=== PATIENT | male | born 1940 | race Caucasian/White ===

== ENCOUNTER 2020-01-04 11:41 | Outpatient (CLI) | payer OTHER, MEDICAID, SELFPAY ==
[2020-01-04 13:28] LABS: Basophils Percent Auto 0.4 % (0.2-1.2); Eosinophils Absolute Auto 0.1 K/mm3 (0-0.3); Eosinophils Percent Auto 0.8 % (0-4.4); Hematocrit 38.1 % (42.0-52.0); Hemoglobin 12.1 g/dL (14.0-18.0); Immature Granulocyte Absolute 0.03 K/mm3 (0.00-0.031); Immature Granulocyte Percent A 0.3 % (0-0.5); Immature Platelet Fraction Pct 4.6 % (0.9-11.2); Lymphocytes Absolute Auto 5.18 K/mm3 (0.9-3.2); Lymphocytes Percent Auto 54.6 % (18.3-44.2); Mean Corpuscular HGB Conc 31.8 g/dl (32-36); Mean Corpuscular Volume 88.2 fl (80-100); Mean Platelet Volume 10.9 fl (7.4-10.4); Monocytes Absolute Auto 0.4 K/mm3 (0.1-0.6); Monocytes Percent Auto 4.5 % (2.6-8.5); Neutrophils Absolute Auto 3.7 K/mm3 (1.3-6.7); Neutrophils Percent Auto 39.4 % (45.5-73.1); Platelet Count Result 105 k/mm3 (150-375); Red Blood Count 4.32 M/mm3 (4.6-6.20); White Blood Count 9.5 K/mm3 (4.5-10.0)
[2020-01-04 13:29] LABS: Add Urine Microscopic? YES; Appearance Urine Clear (Clear); Bilirubin Urine Negative (Negative); Blood Urine Negative (Negative); Color Urine Yellow (Yellow); Glucose Urine UA Negative (Negative); Ketones Urine Trace mg/dL (Negative); Leukocyte Esterase Ur Negative LEU/UL (Negative); Mucus Urine Rare /lpf; Nitrate Urine Negative (Negative); Protein Urine 2+ mg/dL (Negative); RBC Urine 0-2 /hpf (0-2); Specific Grav Ur 1.024 (1.001-1.035); Urobilinogen Urine Negative mg/dL (<2.0); WBC Urine 0-3 /hpf
[2020-01-04 13:33] LABS: Creatinine Urine 155.3 mg/dL; Total Protein Urine Random 29 mg/dL
[2020-01-04 13:38] LABS: Alanine Aminotransferase 8 U/L (4-50); Alkaline Phosphatase 47 U/L (38-126); Aspartate Amino Transferase 20 U/L (17-59); Bilirubin,Total 0.4 mg/dL (0.2-1.3); Blood Urea Nitrogen 22 mg/dL (9-20); Calcium 9.3 mg/dL (8.4-10.2); Carbon Dioxide 28 mmol/L (22-30); Chloride 103 mmol/L (98-107); Estimated Glomerular Filt Rate 53; Glucose 100 mg/dL (75-110); Phosphorus 3.5 mg/dL (2.5-4.5); Potassium 4.5 mmol/L (3.4-5.0); Sodium 138 mmol/L (137-145)
[2020-01-04 13:49] LABS: Parathyroid Intact 41.1 pg/mL (7.5-53.5)
[2020-01-04 14:03] LABS: Platelet Estimate Decreased (Adequate)
[2020-01-04 14:04] LABS: Atypical Lymphocytes Present
== END 2020-01-04 11:42 | disposition home or self-care (01) ==
PROVIDERS: PCP Internal Medicine
DX: J44.9 Chronic obstructive pulmonary disease, unspecified (principal); E55.9 Vitamin D deficiency, unspecified; N18.3 Chronic kidney disease, stage 3 (moderate); K21.9 Gastro-esophageal reflux disease without esophagitis; R73.01 Impaired fasting glucose; C91.90 Lymphoid leukemia, unspecified not having achieved remission; I10 Essential (primary) hypertension; E03.9 Hypothyroidism, unspecified; M19.90 Unspecified osteoarthritis, unspecified site
CPT/HCPCS: 36415; 80053; 81001; 82306; 82570; 83970; 84100; 84156; 85025; 85055

== ENCOUNTER 2020-04-26 09:03 | Outpatient (CLI) | payer OTHER, SELFPAY ==
[2020-04-26 09:40] LABS: Basophils Absolute Auto 0.1 K/mm3 (0.0-0.1); Basophils Percent Auto 0.5 % (0.2-1.2); Eosinophils Absolute Auto 0.1 K/mm3 (0-0.3); Hematocrit 39.9 % (42.0-52.0); Hemoglobin 12.8 g/dL (14.0-18.0); Immature Granulocyte Absolute 0.06 K/mm3 (0.00-0.031); Immature Granulocyte Percent A 0.5 % (0-0.5); Immature Platelet Fraction Pct 3.4 % (0.9-11.2); Lymphocytes Absolute Auto 5.79 K/mm3 (0.9-3.2); Lymphocytes Percent Auto 50.3 % (18.3-44.2); Mean Corpuscular HGB Conc 32.1 g/dl (32-36); Mean Corpuscular Hemoglobin 28.2 pg (26-34); Mean Corpuscular Volume 87.9 fl (80-100); Mean Platelet Volume 11.3 fl (7.4-10.4); Monocytes Absolute Auto 1.6 K/mm3 (0.1-0.6); Monocytes Percent Auto 14.2 % (2.6-8.5); Neutrophils Absolute Auto 3.9 K/mm3 (1.3-6.7); Neutrophils Percent Auto 33.5 % (45.5-73.1); Platelet Count Result 107 k/mm3 (150-375); Red Blood Count 4.54 M/mm3 (4.6-6.20); White Blood Count 11.5 K/mm3 (4.5-10.0)
[2020-04-26 09:45] LABS: Add Urine Microscopic? YES; Appearance Urine Clear (Clear); Bilirubin Urine Negative (Negative); Blood Urine Negative (Negative); Color Urine Yellow (Yellow); Creatinine Urine 109.4 mg/dL; Glucose Urine UA Negative (Negative); Ketones Urine Negative (Negative); Leukocyte Esterase Ur Negative LEU/UL (Negative); Mucus Urine Rare /lpf; Nitrate Urine Negative (Negative); Protein Urine 1+ mg/dL (Negative); RBC Urine 0-2 /hpf (0-2); Specific Grav Ur 1.018 (1.001-1.035); Total Protein Urine Random 27 mg/dL; Urobilinogen Urine Negative mg/dL (<2.0)
[2020-04-26 09:51] LABS: Alanine Aminotransferase 8 U/L (4-50); Albumin Level 4.2 g/dL (3.5-5.1); Alkaline Phosphatase 51 U/L (38-126); Aspartate Amino Transferase 20 U/L (17-59); Bilirubin,Total 0.6 mg/dL (0.2-1.3); Blood Urea Nitrogen 31 mg/dL (9-20); Calcium 8.9 mg/dL (8.4-10.2); Carbon Dioxide 27 mmol/L (22-30); Chloride 102 mmol/L (98-107); Estimated Glomerular Filt Rate 49; Glucose 106 mg/dL (75-110); Phosphorus 3.9 mg/dL (2.5-4.5); Potassium 4.2 mmol/L (3.4-5.0); Sodium 135 mmol/L (137-145)
[2020-04-26 10:08] LABS: Atypical Lymphocytes Present; Platelet Estimate Decreased (Adequate); Smudge Cells MODERATE
[2020-04-26 10:44] LABS: Vitamin D 25 Hydroxy 59.2 ng/mL
== END 2020-04-26 09:04 | disposition home or self-care (01) ==
LOC: ANHLAB 09:11
PROVIDERS: PCP Internal Medicine; Visit Provider Internal Medicine Nephrology
DX: D63.1 Anemia in chronic kidney disease (principal); N39.0 Urinary tract infection, site not specified; N25.0 Renal osteodystrophy; E55.9 Vitamin D deficiency, unspecified
CPT/HCPCS: 36415; 80053; 81001; 82306; 82570; 83970; 84100; 84156; 85025; 85055

== ENCOUNTER 2020-05-24 12:41 | Outpatient (CLI) | payer OTHER, SELFPAY ==
--- NOTE | ~2020-05-24 | CT_ITS ---
EXAMINATION: CT chest abdomen pelvis wo con DATE: 05/24/2020 16:02 CDT INDICATION: Chronic lymphocytic leukemia. TECHNIQUE: Computed tomography (CT) of the chest, abdomen, and pelvis was performed without intraveno us contrast. The dose-length product was 1093.44 mGy-cm. Automated exposure control and iterative rec onstruction technique were employed. COMPARISON: CT dated 03/03/2019 FINDINGS: CHEST CT: Persistent ascending thoracic aortic aneurysm, not well evaluated due to motion artifact. There is at herosclerosis of the aorta and coronary arteries. Heart size normal. No significant pleural or perica rdial effusion. Stable irregular shaped nodular density right middle lobe containing peripheral calci fication, likely granulomatous disease. No endobronchial lesions. Calcified granuloma right middle lo be inferiorly. No focal airspace consolidation. No pneumothorax. ABDOMEN/PELVIS CT: Status post cholecystectomy. The liver, spleen, pancreas, adrenal glands are unremarkable. There is a low-density lesion in the left kidney, most likely benign cysts. There is a nonobstructing left tyrell l stone. The right kidney is surgically absent. There is a retroaortic left renal vein. Nonobstructiv e bowel gas pattern. No abnormal pelvic masses or fluid collections. Bladder is decompressed. Prostat e gland is prominent. No osteolytic or osteoblastic lesions are identified. Moderate lumbar spondylos is. IMPRESSION: 1. No lymphadenopathy. No significant interval change. 2: Nonobstructing left nephrolithiasis. 3: Status post right nephrectomy and cholecystectomy. 4: Stable irregular nodular density right middle lobe with peripheral calcification, likely related t o chronic granulomatous disease. Reviewed, dictated and finalized at location A. IMPRESSION: 1. No lymphadenopathy. No significant interval change. 2: Nonobstructing left nephrolithiasis. 3: Status post right nephrectomy and cholecystectomy. 4: Stable irregular nodular density right middle lobe with peripheral calcifica tion, likely related to chronic granulomatous disease.
== END 2020-05-24 12:42 | disposition home or self-care (01) ==
LOC: ANHIMG 12:44
PROVIDERS: PCP Internal Medicine; Visit Provider Internal Medicine Hematology & Oncology
DX: C91.10 Chronic lymphocytic leukemia of B-cell type not having achieved remission (principal); N20.0 Calculus of kidney; Z90.49 Acquired absence of other specified parts of digestive tract
CPT/HCPCS: 71250; 74176

== ENCOUNTER 2020-07-28 11:50 | Outpatient (CLI) | payer OTHER, SELFPAY ==
[2020-07-28 12:41] LABS: Basophils Absolute Auto 0.1 K/mm3 (0.0-0.1); Basophils Percent Auto 0.5 % (0.2-1.2); Eosinophils Absolute Auto 0.2 K/mm3 (0-0.3); Eosinophils Percent Auto 1.6 % (0-4.4); Hematocrit 33.7 % (42.0-52.0); Hemoglobin 11.2 g/dL (14.0-18.0); Immature Granulocyte Absolute 0.05 K/mm3 (0.00-0.031); Immature Granulocyte Percent A 0.5 % (0-0.5); Lymphocytes Absolute Auto 5.93 K/mm3 (0.9-3.2); Lymphocytes Percent Auto 55.4 % (18.3-44.2); Mean Corpuscular HGB Conc 33.2 g/dl (32-36); Mean Corpuscular Hemoglobin 27.9 pg (26-34); Mean Platelet Volume 11.1 fl (7.4-10.4); Monocytes Absolute Auto 0.6 K/mm3 (0.1-0.6); Monocytes Percent Auto 5.7 % (2.6-8.5); Neutrophils Absolute Auto 3.9 K/mm3 (1.3-6.7); Neutrophils Percent Auto 36.3 % (45.5-73.1); Platelet Count Result 142 k/mm3 (150-375); Red Blood Count 4.01 M/mm3 (4.6-6.20); Red Cell Distribution Width 15.5 % (11.5-14.5); White Blood Count 10.7 K/mm3 (4.5-10.0)
[2020-07-28 12:46] LABS: Creatinine Urine 188.9 mg/dL; Total Protein Urine Random 36 mg/dL
[2020-07-28 12:52] LABS: Add Urine Microscopic? YES; Appearance Urine Clear (Clear); Bilirubin Urine Negative (Negative); Blood Urine Negative (Negative); Color Urine Yellow (Yellow); Glucose Urine UA Negative (Negative); Ketones Urine Trace mg/dL (Negative); Leukocyte Esterase Ur Negative LEU/UL (NEGATIVE); Mucus Urine Rare /lpf; Nitrate Urine Negative (Negative); Protein Urine 2+ mg/dL (Negative); RBC Urine 0-2 /hpf (0-2); Specific Grav Ur 1.021 (1.001-1.035); Squamous Epithelial Cell Urine Rare /hpf (Few); Urobilinogen Urine Negative mg/dL (<2.0); WBC Urine 0-3 /hpf (0-3)
[2020-07-28 12:54] LABS: Alkaline Phosphatase 63 U/L (38-126); Anion Gap 8 mmol/L (8-16); Aspartate Amino Transferase 20 U/L (17-59); Bilirubin,Total 0.6 mg/dL (0.2-1.3); Blood Urea Nitrogen 30 mg/dL (9-20); Calcium 8.8 mg/dL (8.4-10.2); Carbon Dioxide 26 mmol/L (22-30); Chloride 103 mmol/L (98-107); Estimated Glomerular Filt Rate 45; Glucose 122 mg/dL (75-110); Phosphorus 3.9 mg/dL (2.5-4.5); Potassium 4.4 mmol/L (3.4-5.0); Sodium 137 mmol/L (137-145)
[2020-07-28 13:02] LABS: Alanine Aminotransferase < 6 U/L (4-50)
[2020-07-28 13:06] LABS: Parathyroid Intact 57.9 pg/mL (7.5-53.5)
[2020-07-28 13:27] LABS: Vitamin D 25 Hydroxy 56.3 ng/mL
== END 2020-07-28 11:51 | disposition home or self-care (01) ==
PROVIDERS: PCP Internal Medicine; Visit Provider Internal Medicine Nephrology
DX: I12.9 Hypertensive chronic kidney disease with stage 1 through stage 4 chronic kidney disease, or unspecified chronic kidney disease (principal); N18.30 Chronic kidney disease, stage 3 unspecified; D63.1 Anemia in chronic kidney disease; N39.0 Urinary tract infection, site not specified; N25.0 Renal osteodystrophy; E55.9 Vitamin D deficiency, unspecified; C91.90 Lymphoid leukemia, unspecified not having achieved remission; R73.01 Impaired fasting glucose; J44.9 Chronic obstructive pulmonary disease, unspecified
CPT/HCPCS: 36415; 80053; 81001; 82306; 82570; 83970; 84100; 84156; 85025; 87086

== ENCOUNTER 2020-11-02 10:15 | Outpatient (RCR) | payer MEDICARE, OTHER, SELFPAY ==
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
== END 2020-12-25 10:40 | disposition home or self-care (01) ==
LOC: ANHPT 10:15
PROVIDERS: PCP Internal Medicine; Referring Provider Orthopaedic Surgery; Visit Provider Orthopaedic Surgery
DX: M19.90 Unspecified osteoarthritis, unspecified site (principal)
CPT/HCPCS: 97110; 97116; 97163; 97530

== ENCOUNTER 2020-12-15 09:17 | Outpatient (CLI) | payer MEDICARE, SELFPAY ==
[2020-12-15 09:49] LABS: Basophils Absolute Auto 0.1 K/mm3 (0.0-0.1); Basophils Percent Auto 0.5 % (0.2-1.2); Eosinophils Absolute Auto 0.2 K/mm3 (0-0.3); Hematocrit 39.1 % (42.0-52.0); Hemoglobin 12.5 g/dL (14.0-18.0); Immature Granulocyte Absolute 0.04 K/mm3 (0.00-0.031); Immature Granulocyte Percent A 0.4 % (0-0.5); Lymphocytes Absolute Auto 4.82 K/mm3 (0.9-3.2); Lymphocytes Percent Auto 49.9 % (18.3-44.2); Mean Corpuscular Hemoglobin 27.8 pg (26-34); Mean Corpuscular Volume 86.9 fl (80-100); Mean Platelet Volume 10.4 fl (7.4-10.4); Monocytes Absolute Auto 0.8 K/mm3 (0.1-0.6); Monocytes Percent Auto 8.4 % (2.6-8.5); Neutrophils Absolute Auto 3.8 K/mm3 (1.3-6.7); Neutrophils Percent Auto 38.8 % (45.5-73.1); Platelet Count Result 121 k/mm3 (150-375); Red Cell Distribution Width 15.8 % (11.5-14.5); White Blood Count 9.7 K/mm3 (4.5-10.0)
[2020-12-15 09:55] LABS: Atypical Lymphocytes Present; Platelet Estimate Adequate (Adequate)
[2020-12-15 10:07] LABS: Albumin Level 4.2 g/dL (3.5-5.1); Alkaline Phosphatase 47 U/L (38-126); Anion Gap 5 mmol/L (8-16); Aspartate Amino Transferase 20 U/L (17-59); Bilirubin,Total 0.6 mg/dL (0.2-1.3); Blood Urea Nitrogen 33 mg/dL (9-20); Calcium 9.5 mg/dL (8.4-10.2); Carbon Dioxide 30 mmol/L (22-30); Chloride 102 mmol/L (98-107); Estimated Glomerular Filt Rate 49; Glucose 103 mg/dL (75-110); Phosphorus 4.2 mg/dL (2.5-4.5); Potassium 4.1 mmol/L (3.4-5.0); Sodium 137 mmol/L (137-145)
[2020-12-15 10:08] LABS: Alanine Aminotransferase < 4 U/L (4-50)
[2020-12-15 10:15] LABS: Parathyroid Intact 30.2 pg/mL (7.5-53.5)
[2020-12-15 10:18] LABS: Creatinine Urine 110.7 mg/dL; Total Protein Urine Random 27 mg/dL; Ur Ttl Prot Creatinine Ratio 0.24 mg/mg (0-0.20)
[2020-12-15 10:24] LABS: Add Urine Microscopic? YES; Appearance Urine Clear (Clear); Bilirubin Urine Negative (Negative); Blood Urine Negative (Negative); Color Urine Yellow (Yellow); Glucose Urine UA Negative (Negative); Ketones Urine Negative (Negative); Leukocyte Esterase Ur Negative LEU/UL (NEGATIVE); Mucus Urine Rare /lpf; Nitrate Urine Negative (Negative); Protein Urine 1+ mg/dL (Negative); RBC Urine 0-2 /hpf (0-2); Specific Grav Ur 1.017 (1.001-1.035); Transitional Epi Cells Urine Rare /hpf (None Seen); Urobilinogen Urine Negative mg/dL (<2.0); WBC Urine 0-3 /hpf (0-3)
[2020-12-15 10:38] LABS: Prostate Specific Antigen 1.2 ng/mL (< OR = 4.0)
[2020-12-15 12:56] LABS: Vitamin D 25 Hydroxy 42.1 ng/mL
== END 2020-12-15 09:18 | disposition home or self-care (01) ==
PROVIDERS: PCP Internal Medicine; Visit Provider Internal Medicine Nephrology
DX: R97.20 Elevated prostate specific antigen [PSA] (principal); D63.1 Anemia in chronic kidney disease; N39.0 Urinary tract infection, site not specified; E55.9 Vitamin D deficiency, unspecified; N25.0 Renal osteodystrophy
CPT/HCPCS: 36415; 80053; 81001; 82306; 82570; 83970; 84100; 84153; 84156; 85025; 85055

== ENCOUNTER 2021-01-30 10:18 | Outpatient (CLI) | payer MEDICARE, SELFPAY | END 2021-01-30 10:19 | disposition home or self-care (01) | PROVIDERS: PCP Internal Medicine; Visit Provider Internal Medicine | DX: E03.9 Hypothyroidism, unspecified (principal) | CPT/HCPCS: 36415; 84443 ==

== ENCOUNTER 2021-04-19 09:15 | Observation (INO) | payer MEDICARE, SELFPAY ==
[2021-04-19] VITALS (48 sets, daily range): BP systolic 126–159; BP diastolic 73–99; PULSE 57–74; RESP 13–26; TEMP 36.1–36.6; O2SAT 90–100; BMI 24.3
--- NOTE | ~2021-04-19 | XR_ITS ---
XR chest 2V 04/19/2021 09:41 Indication: Left-sided chest pain Procedure: PA and lateral views of the chest Comparison: Comparison to multiple prior studies sequentially, with oldest reviewed study dated 02/18. Findings: Heart size normal. There is atherosclerosis and ectasia of the aorta. There is bibasilar at electasis. No focal pneumonia, edema, pleural effusion or pneumothorax. There are cholecystectomy cli ps. Impression: 1: Bibasilar atelectasis. Reviewed, dictated and finalized at location B. Impression: 1: Bibasilar atelectasis.
--- NOTE | 2021-04-19 09:28 | ECG_ITS ---
Measurements Intervals [place] Rate: 70 P: 68 SC: 279 QRS: -56 QRSD: 142 T: 6 QT: 416 QTc: 450 Interpretive Statements SINUS RHYTHM WITH FIRST DEGREE AV BLOCK RIGHT BUNDLE BRANCH BLOCK LEFT ANTERIOR FASCICULAR BLOCK ABNORMAL ECG Electronically Signed On 04-19-2021 10:25:13 CDT by Arnulfo Eason D.O.
[2021-04-19 09:40] LABS: Basophils Absolute Auto 0.1 K/mm3 (0.0-0.1); Basophils Percent Auto 0.6 % (0.2-1.2); Eosinophils Absolute Auto 0.1 K/mm3 (0-0.3); Eosinophils Percent Auto 1.2 % (0-4.4); Hematocrit 38.9 % (42.0-52.0); Hemoglobin 12.3 g/dL (14.0-18.0); Immature Granulocyte Absolute 0.07 K/mm3 (0.00-0.031); Immature Granulocyte Percent A 0.6 % (0-0.5); Lymphocytes Absolute Auto 4.96 K/mm3 (0.9-3.2); Mean Corpuscular HGB Conc 31.6 g/dl (32-36); Mean Corpuscular Hemoglobin 27.2 pg (26-34); Mean Corpuscular Volume 86.1 fl (80-100); Monocytes Absolute Auto 1.5 K/mm3 (0.1-0.6); Neutrophils Absolute Auto 4.6 K/mm3 (1.3-6.7); Neutrophils Percent Auto 40.6 % (45.5-73.1); Platelet Count Result 109 k/mm3 (150-375); Red Blood Count 4.52 M/mm3 (4.6-6.20); Red Cell Distribution Width 15.4 % (11.5-14.5); White Blood Count 11.3 K/mm3 (4.5-10.0)
[2021-04-19 09:49] LABS: Partial Thromboplastin Time 30.6 SECONDS (22.3-36.8)
[2021-04-19 09:53] LABS: Anion Gap 10 mmol/L (8-16); Blood Urea Nitrogen 23 mg/dL (9-20); Carbon Dioxide 25 mmol/L (22-30); Chloride 106 mmol/L (98-107); Estimated Glomerular Filt Rate 53; Glucose 96 mg/dL (75-110); Potassium 3.9 mmol/L (3.4-5.0); Sodium 141 mmol/L (137-145)
[2021-04-19 10:04] LABS: Troponin I 0.026 ng/mL (0.000-0.034)
[2021-04-19] MEDS: ASPIRIN 81 MG CHEWABLE TABLET 324 MG PO (10:05)
--- NOTE | 2021-04-19 10:36 | ED.CHESTPAIN ---
HPI - Chest Pain General Chief Complaint: Chest Pain Stated Complaint: chest pain Time Seen by Provider: 04/19/21 10:27 Source: patient and RN notes reviewed Mode of arrival: ambulatory Limitations: no limitations History of Present Illness HPI narrative: Patient is 81 years old presented to the ED from home with his caregiver complaining of left chest pain started this morning. Pressure type, no radiation, no aggravating or relieving factors. History of CLL, chronic pain, parkinsonism, CKD, COPD. Patient been vaccinated for COVID-19, full code, denying any fever, chills, nausea, vomiting, shortness of breath. Related Data Home Medications Medication Instructions Recorded Confirmed carbidopa 25 mg-levodopa 250 mg 1 tablet PO TID 11/18/19 02/07/21 disintegrating tablet finasteride 5 mg tablet 5 mg PO DAILY 11/18/19 02/07/21 lisinopril 2.5 mg tablet 2.5 mg PO DAILY 11/18/19 02/07/21 umeclidinium 62.5 mcg-vilanterol 1 inhalation INHALATION DAILY 11/18/19 02/07/21 25 mcg/actuation powdr for inhalation Allergies Allergy/AdvReac Type Severity Reaction Status Date / Time erythromycin base Allergy Intermediate SHAKING, Verified 02/07/21 13:28 HEADACHE neomycin Allergy Unknown rash Verified 02/07/21 13:28 Sulfa (Sulfonamide Allergy Unknown Rash Verified 02/07/21 13:28 Antibiotics) castor oil AdvReac Intermediate Nausea and Verified 02/07/21 13:28 Vomiting Review of Systems Review of Systems: Narrative: CONSTITUTIONAL: Denies fever, chills, or sweats. EYES: Denies visual changes, redness, or discharge. ENT: Denies rhinorrhea, congestion, sore throat, or otalgia. CARDIOVASCULAR: Denies chest pain, palpitations, or edema. RESPIRATORY: Denies cough or dyspnea. GASTROINTESTINAL: Denies abdominal pain, nausea, vomiting, or diarrhea. GENITOURINARY: Denies dysuria or hematuria. SKIN: Denies rash or itching. MUSCULOSKELETAL: Denies back pain, joint pain, or myalgia. NEUROLOGIC: Denies headache, numbness, or weakness. PSYCHIATRIC: Denies anxiety or depression. [facility] Past Medical History Medical History CAD (coronary artery disease) Chronic lymphocytic leukemia Cramp of both lower extremities Degenerative arthritis of knee, bilateral Hyperthyroidism Kidney disease Surgical History Surgical History History of back surgery Hx of rotator cuff surgery Family History Family History Father Family history of liver disease Family history of lung cancer Patient's father is Family history of primary malignant neoplasm of liver Mother Family history of heart disease in male family member before age 55 Patient's mother is Family history of coronary artery disease Acute myocardial infarction Sibling Family history of lung cancer Family history of malignant neoplasm of bone Patient's sister is Patient's brother is Malignant neoplasm of prostate Grandparent Family history of arthritis Other Family history of malignant neoplasm of kidney Social History Social History Alcohol intake: never Gender identity (if verbalized by the patient): Male Exam Narrative: Exam Narrative: General appearance: Well-developed, well-nourished Skin: Normal color Head: Normocephalic, nontraumatic Eyes: Clear conjunctiva ENT: Oropharynx normal, ears normal, nose normal Neck: Supple, nontender Chest and respiratory: Airway patent, no respiratory distress, no accessory muscle use Heart: Regular rate/rhythm Abdomen: Soft, nontender, no organomegaly, quiet bowel sounds Vascular: Normal peripheral pulses, normal capillary refill. Musculoskeletal: Normal range of motion, nontender back left lower leg is slightly bigger than the right 1 which is chronic Neurologic: Alert and orie
--- NOTE | 2021-04-19 13:02 | PC.NURSE ---
PT ASKING FOR LUNCH, EDP INFORMED AND VERBAL ORDER GIVEN FOR CARDIAC DIET.
--- NOTE | 2021-04-19 13:03 | PC.NURSE ---
CECILIA CONTACTED AT THIS TIME FOR ABEBA
[2021-04-19 13:17] LABS: Troponin I 0.024 ng/mL (0.000-0.034)
--- NOTE | 2021-04-19 14:20 | PC.NURSE ---
PT PROVIDED WITH LUNCH TRAY
[2021-04-19] MEDS: METOPROLOL TARTRATE 25 MG TABLET PO (16:02)
[2021-04-19 16:23] LABS: Troponin I 0.026 ng/mL (0.000-0.034)
--- NOTE | 2021-04-19 16:30 | PM.IMHP ---
H&P: HPI History of Present Illness Date/Time: 04/19/21 16:30 Chief Complaint: Chest pain. Narrative: This is a pleasant 81-year-old male with Parkinson's disease, hypertension, hypothyroidism, sleep apnea, chronic kidney disease, CLL, and several other comorbidities who presented to the emergency department earlier today via private vehicle from home accompanied by his pump oiler for evaluation of chest pain. Sometime this morning after getting ready for the day, while doing nothing in particular, he developed midsternal chest pressure which radiated somewhat to left of midline. He also felt a bit short of breath but had no other symptoms; specifically no sweats, nausea, or vomiting. He gives no aggravating or alleviating factors and reports having no chest pain at this time. He has never had similar symptoms in the past. No exertional chest pain, pleuritic pain, palpitations, or current shortness of breath. Review of Systems Review of Systems: Narrative: Twelve systems were reviewed with pertinent positives and negatives as per HPI. No recent falls. He ambulates with a walker. Lives in his own home however a pump oiler comes for hours a day. His son also lives about a block or 2 away. No dysphagia or concerns for aspiration. He denies orthopnea and PND. Occasional GERD symptoms but none recently. The chest pressure he had today is not at all similar to what he typically will experience when he has indigestion. No lower extremity edema. No history of venous thromboembolism. Except as documented, all other systems were reviewed and are negative. [facility] Past Medical History Medical History (Updated 04/19/21 @ 20:08 by Marivel Salomon PA-C) Arthritis Benign prostatic hyperplasia Chronic anemia Chronic kidney disease, stage 3 Baseline creatinine ranges between 1.30 and 1.40. Chronic lymphocytic leukemia Chronic obstructive pulmonary disease Degenerative arthritis of knee, bilateral Degenerative disc disease Depression with anxiety Essential hypertension Gastroesophageal reflux disease Hypothyroidism Obstructive sleep apnea Parkinsons disease Renal cell carcinoma of right kidney Status post nephrectomy. Silicosis Surgical History Surgical History (Updated 04/19/21 @ 20:04 by Marivel Salomon PA-C) History of appendectomy History of arthroscopy of right knee History of back surgery History of cataract extraction History of cholecystectomy History of repair of left rotator cuff History of right nephrectomy (2003) Family History Family History Father Family history of liver disease Family history of lung cancer Patient's father is Family history of primary malignant neoplasm of liver Mother Family history of heart disease in male family member before age 55 Patient's mother is Family history of coronary artery disease Acute myocardial infarction Sibling Family history of lung cancer Family history of malignant neoplasm of bone Patient's sister is Patient's brother is Malignant neoplasm of prostate Grandparent Family history of arthritis Other Family history of malignant neoplasm of kidney Social History Social History (Updated 04/19/21 @ 20:05 by Marivel Salomon PA-C) Social History: The patient is retired and lives in his own home in [place]. A pump oiler comes in 4 hours per day. His son lives close by as well. Retired from [employer]. No alcohol, tobacco, or illicit substance abuse., Mark Bird, as his surrogate decision maker. Code status: Full code. Meds Home Medications and Allergies Home Medications Medication Instructions Recorded Confirmed Type carbidopa 25 mg-levodopa 250 mg 1 tablet PO TID 11/18/19 02/07/21 History disintegrating tablet finasteride 5 mg tablet 5 mg PO DAILY 11/18/19 02/07/21 History lisinopril 2.5 mg tablet 2.5 mg PO DAILY 11/18/19 0
--- NOTE | 2021-04-19 16:31 | PC.NURSE ---
HOSPITALIST AT BEDSIDE.
--- NOTE | 2021-04-19 18:05 | PC.NURSE ---
REPORT TO SHARITA MAYORGA AT THIS TIME, ROOM IS NOT READY, TO CALL BACK IN 20.
--- NOTE | 2021-04-19 18:06 | PC.NURSE ---
REPORT TO SHARITA MAYORGA AT THIS TIME.
--- NOTE | 2021-04-19 18:39 | PC.NURSE ---
This patient, Florencio Bird, was admitted to IMU Room 231-01. Patient/family oriented to hospital policies and general routines including ID bracelet, bed and alarms, visiting hours, pain management, procedures, bathroom and other care routines, personal items, smoking policy, room service/diet, and visiting hours. Information on how to activate the Rapid Response Team has been discussed. Patient/Family are encouraged to report perceived risks to care and to ask questions if they do not understand what they are told or what they should do.
[2021-04-19] MEDS: BUDESONIDE 3 MG CAP.SR.24H PO (21:42)
[2021-04-19] MEDS: LORazepam (*CRX) 0.5 MG TABLET PO (21:42)
[2021-04-19] MEDS: GABAPENTIN 300 MG CAPSULE 600 MG PO (21:42)
[2021-04-19] MEDS: CARBIDOPA/LEVODOPA 25/250 MG TABLET 1 TABLET PO (21:42)
[2021-04-20] VITALS: PULSE 61
[2021-04-20 04:00] VITALS: BP 134/74; PULSE 58; RESP 18; TEMP 37; O2SAT 97
[2021-04-20 05:34] LABS: Alanine Aminotransferase 9 U/L (4-50); Albumin Level 3.5 g/dL (3.5-5.1); Alkaline Phosphatase 46 U/L (38-126); Anion Gap 9 mmol/L (8-16); Aspartate Amino Transferase 19 U/L (17-59); Bilirubin,Total 0.5 mg/dL (0.2-1.3); Blood Urea Nitrogen 23 mg/dL (9-20); Calcium 8.9 mg/dL (8.4-10.2); Carbon Dioxide 24 mmol/L (22-30); Chloride 105 mmol/L (98-107); Cholesterol 118 mg/dL (0-200); Estimated CRCL calculation 42 ml/min; Estimated Glomerular Filt Rate 58; Glucose 87 mg/dL (75-110); HDL Direct 27 mg/dL; Magnesium 1.6 mg/dL (1.6-2.3); Potassium 3.9 mmol/L (3.4-5.0); Sodium 138 mmol/L (137-145); Triglycerides 123 mg/dL (<150)
[2021-04-20 05:45] LABS: LDL Cholesterol Direct 54 mg/dL
[2021-04-20] MEDS: LEVOTHYROXINE SODIUM 100 MCG TABLET PO (06:49)
[2021-04-20 08:00] VITALS: BP 144/74; PULSE 59; PULSE 67; RESP 12; TEMP 36.6; O2SAT 99
[2021-04-20] MEDS: PANTOPRAZOLE 40 MG TABLET PO (08:54)
[2021-04-20] MEDS: GABAPENTIN 300 MG CAPSULE 600 MG PO (08:54)
[2021-04-20] MEDS: FINASTERIDE 5 MG TABLET PO (08:54)
[2021-04-20] MEDS: ENOXAPARIN 40 MG/0.4 ML SYRINGE SUB-Q (08:54)
[2021-04-20] MEDS: DOCUSATE SODIUM 100 MG CAPSULE PO (08:55)
[2021-04-20] MEDS: ASPIRIN 81 MG CHEWABLE TABLET PO (08:55)
[2021-04-20] MEDS: TAMSULOSIN HCL 0.4 MG CAPSULE PO (08:55)
[2021-04-20] MEDS: CARBIDOPA/LEVODOPA 25/250 MG TABLET 1 TABLET PO (08:55)
[2021-04-20] MEDS: BUDESONIDE 3 MG CAP.SR.24H PO (08:55)
[2021-04-20] MEDS: lisinopriL 2.5 MG TABLET PO (08:55)
[2021-04-20 10:00] VITALS: PULSE 73
--- NOTE | 2021-04-20 11:25 | PM.DS ---
DS: Admitting Diagnosis Admitting Diagnosis Admitting Diagnosis: chest pain DS: Discharge Diagnosis Discharge Diagnosis (1) Chest pain: Qualifiers: Chest pain type: unspecified Qualified Code(s): R07.9 - Chest pain, unspecified Code(s): R07.9 - Chest pain, unspecified Status: Acute (2) Essential hypertension: Code(s): I10 - Essential (primary) hypertension Status: Acute (3) Gastroesophageal reflux disease: Qualifiers: Esophagitis presence: esophagitis presence not specified Qualified Code(s): K21.9 - Gastro-esophageal reflux disease without esophagitis Code(s): K21.9 - Gastro-esophageal reflux disease without esophagitis Status: Acute (4) Parkinson disease: Code(s): G20 - Parkinson's disease Status: Acute (5) Hypothyroidism: Code(s): E03.9 - Hypothyroidism, unspecified Status: Acute (6) Chronic kidney disease, stage 3: Code(s): N18.30 - Chronic kidney disease, stage 3 unspecified Status: Acute (7) Chronic anemia: Code(s): D64.9 - Anemia, unspecified Status: Acute (8) Chronic obstructive pulmonary disease: Code(s): J44.9 - Chronic obstructive pulmonary disease, unspecified Status: Acute DS: Summary Hospital Course Reason for hospitalization: Chest pain. Narrative: This is a pleasant 81-year-old male with Parkinson's disease, hypertension, hypothyroidism, sleep apnea, chronic kidney disease, CLL, and several other comorbidities who presented to the emergency department earlier today via private vehicle from home accompanied by his animal caretaker supervisor for evaluation of chest pain. Sometime this morning after getting ready for the day, while doing nothing in particular, he developed midsternal chest pressure which radiated somewhat to left of midline. He also felt a bit short of breath but had no other symptoms; specifically no sweats, nausea, or vomiting. He gives no aggravating or alleviating factors and reports having no chest pain at this time. He has never had similar symptoms in the past. No exertional chest pain, pleuritic pain, palpitations, or current shortness of breath. Hospital Course: patient presented with complaint of chest 3 sets of cardiac enzymes are negative there are no acute changes on EKG ID is ruled out, patient chest pain has resolved is clinically stable will discharge the patient today Status at Discharge Functional status at discharge: uses cane/walker Overall status at discharge: patient is back to baseline Time Spent with Patient Time attestation: Total time spent providing and/or coordinating discharge services: Patient was seen and examined at the time of the discharge Condition at discharge is stable Code status: Full code. Time spent preparing discharge summary, discharge medications, discussing discharge planning with outsole caser and patient is 35 minutes. Time spent: Greater than 30 minutes DS: Data Data Completed and Pending Labs on day of discharge: Labs from last 24 hours 04/20/21 04/20/21 04/19/21 05:03 05:03 15:57 Sodium 138 Potassium 3.9 Chloride 105 Carbon Dioxide 24 Anion Gap 9 BUN 23 H Creatinine 1.20 Estim Creat Clear Calc 42 Estimated GFR 58 L Glucose 87 Calcium 8.9 Magnesium 1.6 Total Bilirubin 0.5 AST 19 ALT 9 Alkaline Phosphatase 46 Troponin I 0.026 Total Protein 6.0 L Albumin 3.5 Triglycerides 123 Cholesterol 118 LDL Cholesterol Direct 54 HDL Direct 27 TSH (Reflex) 2.070 04/19/21 12:47 Sodium Potassium Chloride Carbon Dioxide Anion Gap BUN Creatinine Estim Creat Clear Calc Estimated GFR Glucose Calcium Magnesium Total Bilirubin AST ALT Alkaline Phosphatase Troponin I 0.024 Total Protein Albumin Triglycerides Cholesterol LDL Cholesterol Direct HDL Direct TSH (Reflex) Discharge Plan Discharge Attending physi
== END 2021-04-20 12:35 | disposition home or self-care (01) ==
LOC: ANHED 10:59 → ANHIMU 18:52
PROVIDERS: Physician Assistant; Admitting Provider Emergency Medicine; Emergency Provider Emergency Medicine; PCP Internal Medicine; Visit Provider Family Medicine
DX: R07.9 Chest pain, unspecified (principal); G20 Parkinson's disease; I12.9 Hypertensive chronic kidney disease with stage 1 through stage 4 chronic kidney disease, or unspecified chronic kidney disease; N18.30 Chronic kidney disease, stage 3 unspecified; D64.9 Anemia, unspecified; E03.9 Hypothyroidism, unspecified; G47.33 Obstructive sleep apnea (adult) (pediatric); R06.02 Shortness of breath; K21.9 Gastro-esophageal reflux disease without esophagitis; Z85.6 Personal history of leukemia
CPT/HCPCS: 36415; 71046; 80048; 80053; 80061; 83735; 84443; 84484; 85025; 85610; 85730; 93005; 96372; 99285; A9270; G0378; J1650

== ENCOUNTER 2021-04-23 10:40 | Outpatient (CLI) | payer MEDICARE, SELFPAY ==
[2021-04-23 11:27] LABS: Basophils Absolute Auto 0.1 K/mm3 (0.0-0.1); Basophils Percent Auto 0.7 % (0.2-1.2); Eosinophils Absolute Auto 0.2 K/mm3 (0-0.3); Eosinophils Percent Auto 1.7 % (0-4.4); Hematocrit 37.8 % (42.0-52.0); Hemoglobin 12.1 g/dL (14.0-18.0); Immature Granulocyte Absolute 0.06 K/mm3 (0.00-0.031); Immature Granulocyte Percent A 0.6 % (0-0.5); Immature Platelet Fraction Pct 4.9 % (0.9-11.2); Lymphocytes Percent Auto 52.5 % (18.3-44.2); Mean Corpuscular Hemoglobin 27.2 pg (26-34); Mean Corpuscular Volume 84.9 fl (80-100); Mean Platelet Volume 10.5 fl (7.4-10.4); Monocytes Absolute Auto 0.7 K/mm3 (0.1-0.6); Monocytes Percent Auto 6.7 % (2.6-8.5); Neutrophils Percent Auto 37.8 % (45.5-73.1); Platelet Count Result 110 k/mm3 (150-375); Red Blood Count 4.45 M/mm3 (4.6-6.20); Red Cell Distribution Width 15.6 % (11.5-14.5); White Blood Count 10.5 K/mm3 (4.5-10.0)
[2021-04-23 11:42] LABS: Alanine Aminotransferase 15 U/L (4-50); Albumin Level 4.1 g/dL (3.5-5.1); Alkaline Phosphatase 60 U/L (38-126); Anion Gap 9 mmol/L (8-16); Aspartate Amino Transferase 24 U/L (17-59); Bilirubin,Total 0.4 mg/dL (0.2-1.3); Blood Urea Nitrogen 31 mg/dL (9-20); Calcium 9.1 mg/dL (8.4-10.2); Carbon Dioxide 24 mmol/L (22-30); Chloride 107 mmol/L (98-107); Estimated Glomerular Filt Rate 42; Glucose 106 mg/dL (75-110); Phosphorus 4.3 mg/dL (2.5-4.5); Potassium 4.6 mmol/L (3.4-5.0); Sodium 140 mmol/L (137-145)
[2021-04-23 11:44] LABS: Add Urine Microscopic? YES; Appearance Urine Clear (Clear); Bilirubin Urine Negative (Negative); Blood Urine Negative (Negative); Color Urine Yellow (Yellow); Glucose Urine UA Negative (Negative); Ketones Urine Negative (Negative); Leukocyte Esterase Ur Negative LEU/UL (NEGATIVE); Mucus Urine Rare /lpf; Nitrate Urine Negative (Negative); Protein Urine 2+ mg/dL (Negative); Specific Grav Ur 1.018 (1.001-1.035); Urobilinogen Urine Negative mg/dL (<2.0); WBC Urine 0-3 /hpf (0-3)
[2021-04-23 11:47] LABS: Atypical Lymphocytes Present; Large Platelets Present; Platelet Estimate Adequate (Adequate)
[2021-04-23 11:50] LABS: Creatinine Urine 126.5 mg/dL; Total Protein Urine Random 29 mg/dL; Ur Ttl Prot Creatinine Ratio 0.23 mg/mg (0-0.20)
[2021-04-23 12:05] LABS: Vitamin D 25 Hydroxy 45.6 ng/mL
[2021-04-23 12:26] LABS: Parathyroid Intact 71.4 pg/mL (7.5-53.5)
== END 2021-04-23 10:41 | disposition home or self-care (01) ==
PROVIDERS: PCP Internal Medicine; Visit Provider Internal Medicine Nephrology
DX: N18.31 Chronic kidney disease, stage 3a (principal); N39.0 Urinary tract infection, site not specified; D63.1 Anemia in chronic kidney disease; N25.0 Renal osteodystrophy; E55.9 Vitamin D deficiency, unspecified
CPT/HCPCS: 36415; 80053; 81001; 82306; 82570; 83970; 84100; 84156; 85025; 85055

== ENCOUNTER 2021-07-09 12:28 | Outpatient (RCR) | payer MEDICARE, SELFPAY ==
--- NOTE | 2021-07-09 13:59 | REHOPWC ---
SEATING EVALUATION NOTIFICATION Re: Florencio Bird : 1940 This is to notify provider that Florencio Bird participated in a power mobility device evaluation today. Recommendations were made specific to patient's needs. Seating Assessment documentation has been completed for detailed information on required equipment. The mobility device provider for this case is [ [facility] ]. Please note that no further care plan will be developed on this account. Thank you for referring this patient to [facility]. Please review, sign, date and return this discharge summary MITCH. I have been updated about the patient's current status and I agree with discharge from the above service at this time. Referring Physician Date
== END 2021-09-25 11:57 | disposition home or self-care (01) ==
LOC: ANHPT 12:28
PROVIDERS: PCP Internal Medicine; Visit Provider Internal Medicine
DX: Z46.89 Encounter for fitting and adjustment of other specified devices (principal); R26.9 Unspecified abnormalities of gait and mobility
CPT/HCPCS: 97163

== ENCOUNTER 2021-08-02 10:39 | Outpatient (CLI) | payer MEDICARE, SELFPAY ==
--- NOTE | ~2021-08-02 | CT_ITS ---
EXAMINATION: CT abdomen pelvis w con DATE: 08/02/2021 11:17 INDICATION: Left lower quadrant abdominal pain TECHNIQUE: Computed tomography (CT) of the abdomen and pelvis was performed with 100 cc Omnipaque 350 intravenous contrast. Automated exposure control and iterative reconstruction technique were employe d. Exam dose: 899.76 mGy-cm total exam DLP. COMPARISON: 05/24/2020 CT chest abdomen pelvis FINDINGS: There is evidence of old pulmonary granulomatous disease. There is mild atelectasis in the lower lung zones, primarily the dependent lower lobes. Prominent coronary artery calcifications. Cardiomegaly. There is trace pericardial fluid. Status post cholecystectomy. The liver, spleen, pancreas, and adrenal glands are unremarkable. Status post right nephrectomy. Approximately 1.8 cm mildly septated hypoenhancing lesion of the lateral aspect of the lower pole the left kidney is noted. This is slightly diminished in size compared to approximately 1.9 cm dimension on 03/03/2019. Stable approximately 7 x 5 mm hypoattenuating lesion of the posterior mid left kidney 03/03/2019. No left renal or ureteral calculus or hydroureteronephrosis. There is prostate enlargement. There is a 1.5 cm diverticulum of the anterior aspect of the urinary bladder. There are numerous diverticula of the left colon; no CT evidence of diverticulitis. No bowel obstruct ion, bowel wall thickening, pneumatosis or intraperitoneal free air. There is atherosclerotic calcification of the abdominal aorta and aortic branches but no abdominal ao rtic aneurysm. No intraperitoneal or retroperitoneal or pelvic mass lesion or adenopathy or ascites i s evident. Small fat-containing umbilical hernia. Diffuse osteopenia. 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 There is moderate to moderately severe degenerative disc disease of the lumbar and lumbosacral spine. Bilateral hip osteoarthritis. No suspicious osteolytic or osteoblastic lesions are noted. IMPRESSION: Status post right nephrectomy Relatively stable left renal cystic lesions since 03/03/2019, likely benign or indolent Prostate enlargement Diverticulosis of the colon; no CT evidence of diverticulitis Status post cholecystectomy Reviewed, dictated and finalized at Location [facility]. Reviewed, dictated and finalized at location A. IMPRESSION: Status post right nephrectomy Relatively stable left renal cystic lesions since 03/03/2019, likely benign or in dolent Prostate enlargement Diverticulosis of the colon; no CT evidence of diverticulitis Status post cholecystectomy
[2021-08-02 11:12] LABS: Estimated Glomerular Filt Rate 49
== END 2021-08-02 10:40 | disposition home or self-care (01) ==
LOC: ANHIMG 10:42
PROVIDERS: PCP Internal Medicine; Visit Provider Internal Medicine Hematology & Oncology
DX: R10.12 Left upper quadrant pain (principal); Z90.49 Acquired absence of other specified parts of digestive tract; K57.30 Diverticulosis of large intestine without perforation or abscess without bleeding; N40.0 Benign prostatic hyperplasia without lower urinary tract symptoms
CPT/HCPCS: 74177; Q9967

== ENCOUNTER 2021-08-14 08:54 | Outpatient (CLI) | payer MEDICARE, SELFPAY ==
[2021-08-14 09:35] LABS: Hematocrit 39.9 % (42.0-52.0); Hemoglobin 12.6 g/dL (14.0-18.0); Mean Corpuscular HGB Conc 31.6 g/dl (32-36); Mean Corpuscular Volume 88.7 fl (80-100); Mean Platelet Volume 10.1 fl (7.4-10.4); Platelet Count Result 142 k/mm3 (150-375); Red Cell Distribution Width 16.4 % (11.5-14.5); White Blood Count 12.1 K/mm3 (4.5-10.0)
[2021-08-14 09:48] LABS: Alanine Aminotransferase 10 U/L (4-50); Albumin Level 4.1 g/dL (3.5-5.1); Alkaline Phosphatase 73 U/L (38-126); Anion Gap 9 mmol/L (8-16); Aspartate Amino Transferase 27 U/L (17-59); Bilirubin,Total 0.5 mg/dL (0.2-1.3); Blood Urea Nitrogen 29 mg/dL (9-20); Calcium 9.2 mg/dL (8.4-10.2); Carbon Dioxide 27 mmol/L (22-30); Chloride 103 mmol/L (98-107); Cholesterol 138 mg/dL (0-200); Estimated Glomerular Filt Rate 58; Glucose 102 mg/dL (65-110); HDL Direct 32 mg/dL; Potassium 4.2 mmol/L (3.4-5.0); Sodium 139 mmol/L (137-145); Triglycerides 149 mg/dL (<150)
[2021-08-14 09:59] LABS: LDL Cholesterol Direct 70 mg/dL
[2021-08-14 10:50] LABS: Lymphocytes Absolute Manual 7.13 K/mm3 (1.1-4.5); Monocytes Absolute Manual 0.72 K/mm3 (0.1-0.90); Monocytes Percent Manual 6 % (3-9); Neutrophils Percent Manual 35 % (46-73); Platelet Estimate Adequate (Adequate); Total Cells Counted 100
[2021-08-14 11:12] LABS: Folic Acid 12.2 ng/mL (2.76->20); Vitamin B12 > 1000.0 pg/mL (239-931)
== END 2021-08-14 08:55 | disposition home or self-care (01) ==
PROVIDERS: PCP Internal Medicine; Visit Provider Internal Medicine
DX: C91.10 Chronic lymphocytic leukemia of B-cell type not having achieved remission (principal); R41.89 Other symptoms and signs involving cognitive functions and awareness; E03.9 Hypothyroidism, unspecified; F41.8 Other specified anxiety disorders; I10 Essential (primary) hypertension
CPT/HCPCS: 36415; 80053; 80061; 82607; 82746; 85025

== ENCOUNTER 2021-11-20 12:33 | Outpatient (CLI) | payer MEDICARE, MEDICAID, SELFPAY ==
--- NOTE | ~2021-11-20 | XR_ITS ---
XR chest 2V 11/20/2021 13:04 Indication: Cough Procedure: 2 view chest Comparison: Comparison to multiple prior studies sequentially, with oldest reviewed study dated 03/20. Findings: Heart size normal. There is atherosclerosis and ectasia of the aorta. Bibasilar infiltrates which may represent atelectasis or pneumonia. Nodular density right mid thorax slightly more promine nt than on 04/19/2021. The lungs are hyperinflated which is consistent with, but not diagnostic of chr onic obstructive pulmonary disease. Impression: 1: Bibasilar infiltrates, atelectasis versus pneumonia. 2: Enlarging nodular density right mid thorax. Follow-up CT chest recommended. Reviewed, dictated and finalized at location B. OR MANAGER CREATIVE SERVICES Impression: 1: Bibasilar infiltrates, atelectasis versus pneumonia. 2: Enlarging nodular density right mid thorax. Follow-up CT chest recommended.
== END 2021-11-20 12:34 | disposition home or self-care (01) ==
PROVIDERS: PCP Internal Medicine; Visit Provider Internal Medicine
DX: R05.9 Cough, unspecified (principal); R91.8 Other nonspecific abnormal finding of lung field
CPT/HCPCS: 71046

== ENCOUNTER 2021-11-30 14:03 | Outpatient (CLI) | payer MEDICARE, MEDICAID, SELFPAY ==
--- NOTE | ~2021-11-30 | XR_ITS ---
XR chest 2V DATE: 11/30/2021 14:45 INDICATION: Cough TECHNIQUE: 2 views COMPARISON: 11/20/2021 2 view chest FINDINGS: Normal heart size. There is aortic calcification and tortuosity. No hilar or mediastinal enlargement. There is bilateral pulmonary hyperinflation. No pulmonary infiltrate or consolidation, pulmonary vas cular congestion or pleural effusion or pneumothorax. Again noted is an approximately 1.5 cm mass in the lateral right mid to lower lung. Diffuse osteopenia. Degenerative spurring of the thoracic spine. IMPRESSION: Persistent right lower lobe mass, suspicious for lung cancer. Consider PET/CT scan Bilateral hyperinflation Reviewed, dictated and finalized at location B. CHILL ADMINISTRATOR IMPRESSION: Persistent right lower lobe mass, suspicious for lung cancer. Cons ider PET/CT scan Bilateral hyperinflation
== END 2021-11-30 14:04 | disposition home or self-care (01) ==
PROVIDERS: PCP Internal Medicine; Visit Provider Internal Medicine
DX: R05.9 Cough, unspecified (principal); R91.8 Other nonspecific abnormal finding of lung field
CPT/HCPCS: 71046

== ENCOUNTER 2021-12-10 08:50 | Outpatient (CLI) | payer MEDICARE, MEDICAID, SELFPAY ==
[2021-12-05 09:41] VITALS: BMI 26.2
--- NOTE | 2021-12-05 09:52 | PC.NURSE ---
Report to the Outpatient Waiting Room, entrance under the green pavilion located off [facility], at time ___0900____ on date _12/10/21 . OR Time: _1100 . - You will be asked a series of questions to screen for COVID 19 for your protection. - A mask is required within the hospital. - No visitors are allowed at this time. Preoperative COVID Testing Requirements: No COVID Test needed if: (proof is required; if not received patient will have Rapid Test prior to entry) - Patient has received COVID Vaccine at least 14 days prior to procedure date or - Patient has positive COVID test result within last 90 days of surgery date. COVID Test needed if above criteria is not met If not COVID vaccinated a COVID test must be conducted within 72 hours of surgery and patient is asked to isolate self from time of testing until procedure. You will go to the [facility] for your COVID testing. The [facility] is located at the corner of [address] [facility]. You will only be called if COVID results are positive and your surgeon may reschedule your elective surgery date. -NOTHING TO EAT OR DRINK 6 HOURS PRIOR TO PROCEDURE (0500) - Take the following medications with a SIP of water the morning of surgery: _ALL ROUTINE MORNING MEDS Medications to discontinue per physician Date to take last dose Please no make-up, nail nigerien, hairspray, perfume, deodorant, or body powder the day of surgery. No jewelry (including any body piercings) or valuables the day of surgery, leave them at home. Please take a shower or bath the night before, or the morning of, surgery with an antibacterial soap. Wear comfortable, loose fitting clothing. Children are encouraged to wear pajamas. - Jewelry must be removed prior to entering the operating room. Rings and piercings that are not removed may be cut off. - The hospital will not accept responsibility for valuables. - Please leave all valuables, including medications, at home the day of surgery. If you are going home after surgery, a licensed stake driver must drive you home. - NO public transportation without another adult. - We recommend that an adult stay with you for 24 hours following discharge. - We also recommend that you do not drive, make important decision, drink alcoholic beverages, or take any drugs that were not prescribed by your health care provider for at least 24 hours after your discharge time Follow any additional instructions given to you from your surgeon. Telephone instructions given to _PATIENT AND SON DON and asked if any additional questions and then verbalized understanding. Patient advised to call surgeon office or pre surgery nurse liaison [phone] if any additional questions.
--- NOTE | ~2021-12-10 | CT_ITS ---
EXAMINATION: CT diagnostic chest w con DATE: 12/10/2021 09:45 INDICATION: Solitary pulmonary nodule TECHNIQUE: Transaxial computed tomographic images of the chest were obtained after the administration of 75 cc of Omnipaque 350 intravenous contrast. The dose-length product (DLP) was 277.19 mGy-cm. Ite rative reconstruction was used. COMPARISON: 05/24/2020, 03/03/2019, 11/19/2012 FINDINGS: A calcified nodule of the right middle lobe measuring up to 1.6 cm is not significantly teresa nged. There are dependent airspace opacities in the lungs. Calcified pulmonary nodules and calcified right hilar and mediastinal lymph nodes are consistent with old granulomatous disease. No pathologica lly enlarged thoracic lymph nodes are identified. The heart size is normal. There is mild thoracic sp ondylosis. The gallbladder is surgically absent. IMPRESSION: 1. Stable calcified nodule of the right middle lobe, likely old granulomatous disease. 2. Minimal dependent airspace opacities, consistent with atelectasis versus pneumonia. Reviewed, dictated and finalized at location A. HEN AND COUNTER WORKER IMPRESSION: 1. Stable calcified nodule of the right middle lobe, likely old granulomatous d isease. 2. Minimal dependent airspace opacities, consistent with atelectasis versus pne umonia.
[2021-12-10 09:36] LABS: Estimated CRCL calculation 48 ml/min; Estimated Glomerular Filt Rate > 60
== END 2021-12-10 08:51 | disposition home or self-care (01) ==
LOC: ANHSURGERY 08:58
PROVIDERS: PCP Internal Medicine; Visit Provider Internal Medicine
DX: R91.1 Solitary pulmonary nodule (principal); R91.8 Other nonspecific abnormal finding of lung field
CPT/HCPCS: 71260; Q9967

== ENCOUNTER 2021-12-29 13:53 | Outpatient (CLI) | payer MEDICARE, MEDICAID, SELFPAY ==
--- NOTE | ~2021-12-29 | XR_ITS ---
XR abdomen/kub 1V 12/29/2021 14:34 Indication: Constipation Procedure: KUB Comparison: 01/12/2015 Findings: Bowel gas pattern is nonobstructive. Moderate colonic fecal loading. There are surgical teresa nges in the right upper and mid abdomen. Moderate lumbar spondylosis. Left nephrolithiasis. There are pelvic phleboliths. Moderate osteoarthritis of the hips. Impression: 1: Left nephrolithiasis. Reviewed, dictated and finalized at location A. TECHNICIAN Impression: 1: Left nephrolithiasis.
== END 2021-12-29 13:54 | disposition home or self-care (01) ==
PROVIDERS: PCP Internal Medicine; Visit Provider Nurse Practitioner Family
DX: K59.00 Constipation, unspecified (principal); N20.0 Calculus of kidney
CPT/HCPCS: 74018

== ENCOUNTER 2022-01-31 13:14 | Outpatient (CLI) | payer MEDICARE, MEDICAID, SELFPAY ==
--- NOTE | 2022-01-31 13:39 | ECHO_ITS ---
Patient Info Name: Florencio Bird Age: 81 years : 1940 Gender: Male Ht: 70 in Wt: 186 lbs BSA: 2.05 m2 HR: 68 bpm BP: 133 / 77 mmHg Technical Quality: Fair Exam Date: 01/31/2022 2:05 PM Exam Location: [facility] Pulmonary Patient Status: Outpatient Admit Date: 01/31/2022 Staff Ordering Physician: Sarah Carvalho PA-C Delivery Representative: Tracy Urena RDCS Attending Provider: Sarah Carvalho PA-C Exam Type: CA echo doppler color flow Study Info Indications - SLEEP APNEA Complete two-dimensional, color flow and Doppler transthoracic echocardiogram is performed. Summary 1. Complete two-dimensional, color flow and Doppler transthoracic echocardiogram is performed. 2. Left ventricular chamber dimension is normal. 3. Left ventricular systolic function is normal, estimated at 60-65%. 4. The left ventricular diastolic function is grade I diastolic dysfunction. 5. E/e' 9 is minimally elevated. 6. There is mild aortic valve sclerosis. 7. No pulmonary hypertension, estimated pulmonary arterial systolic pressure is 25 mmHg. Left Ventricle E/e' 9 is minimally elevated. Left ventricular chamber dimension is normal. Left ventricular systolic function is normal, estimated at 60-65%. The left ventricular diastolic function is grade I diastolic dysfunction. Right Ventricle Right ventricular chamber dimension is normal. Right ventricular systolic function is normal. Left Atria Left atrial chamber dimension is normal. Right Atria Right atrial chamber dimension is normal. Aortic Valve The aortic valve is trileaflet. There is mild aortic valve sclerosis. There is no aortic valve stenosis. There is no aortic valve regurgitation. Pulmonic Valve There is no pulmonic regurgitation. Mitral Valve There is no mitral valve stenosis. There is no mitral valve regurgitation. Tricuspid Valve There is no tricuspid valve regurgitation. No pulmonary hypertension, estimated pulmonary arterial systolic pressure is 25 mmHg. Pericardium/Pleural There is no pericardial effusion. Inferior Vena Cava Normal inferior vena cava with >50% collapse upon inspiration consistent with normal right atrial pressure, 5 mmHg. Aorta The aortic root size at the sinus of Valsalva is normal. Left Ventricular Outflow Tract Name Value Normal LVOT 2D LVOT Diameter 2.1 cm LVOT Doppler LVOT Peak Gradient 4 mmHg LVOT Mean Gradient 2 mmHg LVOT VTI 20 cm LVOT VTI/AV VTI Ratio 1.0 LVOT Stroke Volume 71 ml LVOT CO 13.8 l/min LVOT CI 6.7 l/min/m2 Mitral Valve Name Value Normal MV Doppler MV Decel Jackson 216 cm/s2 MV PHT
== END 2022-01-31 13:15 | disposition home or self-care (01) ==
LOC: ANHCARD 13:18
PROVIDERS: PCP Internal Medicine; Visit Provider Physician Assistant
DX: G47.33 Obstructive sleep apnea (adult) (pediatric) (principal)
CPT/HCPCS: 93306

== ENCOUNTER 2022-01-31 14:34 | Outpatient (CLI) | payer MEDICARE, MEDICAID, SELFPAY ==
[2022-01-31 15:17] LABS: Basophils Absolute Auto 0.1 K/mm3 (0.0-0.1); Basophils Percent Auto 0.6 % (0.2-1.2); Eosinophils Absolute Auto 0.1 K/mm3 (0-0.3); Eosinophils Percent Auto 1.7 % (0-4.4); Hematocrit 39.7 % (42.0-52.0); Hemoglobin 12.6 g/dL (14.0-18.0); Immature Granulocyte Absolute 0.04 K/mm3 (0.00-0.031); Immature Granulocyte Percent A 0.5 % (0-0.5); Immature Platelet Fraction Pct 3.3 % (0.9-11.2); Lymphocytes Absolute Auto 3.76 K/mm3 (0.9-3.2); Lymphocytes Percent Auto 44.4 % (18.3-44.2); Mean Corpuscular HGB Conc 31.7 g/dl (32-36); Mean Corpuscular Hemoglobin 27.6 pg (26-34); Mean Corpuscular Volume 87.1 fl (80-100); Mean Platelet Volume 10.2 fl (7.4-10.4); Monocytes Absolute Auto 0.6 K/mm3 (0.1-0.6); Monocytes Percent Auto 7.4 % (2.6-8.5); Neutrophils Absolute Auto 3.8 K/mm3 (1.3-6.7); Neutrophils Percent Auto 45.4 % (45.5-73.1); Platelet Count Result 139 k/mm3 (150-375); Red Blood Count 4.56 M/mm3 (4.6-6.20); Red Cell Distribution Width 15.9 % (11.5-14.5); White Blood Count 8.5 K/mm3 (4.5-10.0)
[2022-01-31 15:22] LABS: Creatinine Urine 115.7 mg/dL
[2022-01-31 15:24] LABS: Add Urine Microscopic? YES; Appearance Urine Clear (Clear); Bilirubin Urine Negative (Negative); Blood Urine Negative (Negative); Color Urine Yellow (Yellow); Glucose Urine UA Negative (Negative); Ketones Urine Trace mg/dL (Negative); Leukocyte Esterase Ur Negative LEU/UL (NEGATIVE); Mucus Urine Rare /lpf; Nitrate Urine Negative (Negative); Protein Urine 3+ mg/dL (Negative); RBC Urine 0-2 /hpf (0-2); Urobilinogen Urine Negative mg/dL (<2.0); WBC Urine 0-3 /hpf (0-3)
[2022-01-31 15:25] LABS: Albumin Level 4.2 g/dL (3.5-5.1); Alkaline Phosphatase 70 U/L (38-126); Anion Gap 7 mmol/L (8-16); Aspartate Amino Transferase 24 U/L (17-59); Bilirubin,Total 0.6 mg/dL (0.2-1.3); Blood Urea Nitrogen 24 mg/dL (9-20); Calcium 8.9 mg/dL (8.4-10.2); Carbon Dioxide 26 mmol/L (22-30); Chloride 103 mmol/L (98-107); Estimated Glomerular Filt Rate 58; Glucose 101 mg/dL (65-110); Phosphorus 4.2 mg/dL (2.5-4.5); Potassium 3.8 mmol/L (3.4-5.0); Sodium 136 mmol/L (137-145)
[2022-01-31 15:35] LABS: Hemoglobin A1C 5.1 % (<5.7); Ovalocytes 1+ (NORMAL); Platelet Estimate Adequate (Adequate)
[2022-01-31 15:36] LABS: Atypical Lymphocytes Present; Parathyroid Intact 58.6 pg/mL (7.5-53.5); Smudge Cells FEW
[2022-01-31 15:37] LABS: Alanine Aminotransferase < 6 U/L (4-50)
[2022-01-31 15:38] LABS: Total Protein Urine Random 364 mg/dL; Ur Ttl Prot Creatinine Ratio 3.15 mg/mg (0-0.20)
[2022-01-31 19:06] LABS: Vitamin D 25 Hydroxy 41.7 ng/mL
== END 2022-01-31 14:35 | disposition home or self-care (01) ==
LOC: ANHLAB 14:43
PROVIDERS: PCP Internal Medicine; Visit Provider Internal Medicine Nephrology
DX: R73.09 Other abnormal glucose (principal); N18.31 Chronic kidney disease, stage 3a; J44.9 Chronic obstructive pulmonary disease, unspecified; I10 Essential (primary) hypertension; E03.9 Hypothyroidism, unspecified; N40.0 Benign prostatic hyperplasia without lower urinary tract symptoms; K21.9 Gastro-esophageal reflux disease without esophagitis
CPT/HCPCS: 36415; 80053; 81001; 82306; 82570; 83036; 83970; 84100; 84156; 85025; 85055; 93306

== ENCOUNTER 2022-07-16 10:11 | Outpatient (CLI) | payer MEDICARE, MEDICAID, SELFPAY ==
--- NOTE | ~2022-07-16 | NM_ITS ---
EXAMINATION: NM joe stress w perfusion DATE: 07/16/2022 12:35 INDICATION: Abnormal electrocardiogram. TECHNIQUE: Rest images were obtained following intravenous administration of 10.44 mCi Tc99m tetrofos min (Myoview). The patient was infused intravenously with Lexiscan (regadenoson). Then, 33.44 mCi Tc9 9m tetrofosmin (Myoview) was administered intravenously, and stress images were obtained. Data was re constructed into short axis and horizontal and vertical long axis SPECT images. Gated SPECT images we re also obtained. COMPARISON: Chest CT 12/10/2021 FINDINGS: There is a large, severe, fixed perfusion defect involving left ventricular apex, apical se ptal segment, mid inferoseptal segment, apical to basal inferior wall, apical lateral segment, and mi d to basal inferolateral wall, consistent with infarct. No reversible component to suggest ischemia.. There is no segmental wall motion abnormality. Left ventricular ejection fraction measures 69%. IMPRESSION: 1. 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 2. Normal left ventricular ejection fraction measuring 69%. Reviewed, dictated and finalized at location A. IMPRESSION: 1. 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 2. Normal left ventricular ejection fraction measuring 69%.
--- NOTE | 2022-07-16 10:23 | EST_ITS ---
Patient Info Name: Florencio Bird Age: 82 years : 1940 Gender: Male Ht: 68 in Wt: 183 lbs BSA: 2.01 m2 Exam Date: 07/16/2022 11:23 AM Exam Location: [facility] Stress Patient Status: Outpatient Admit Date: 07/16/2022 Staff Ordering Physician: Steven Queen DO Attending Provider: Steven Queen DO Exercise Technologist: Debbie Thorpe RDCS Exercise Physician: Arnulfo Eason DO Exam Type: CA stress joe w NM Study Info Indications R94.31 - Abnormal electrocardiogram ECG EKG A regadenoson stress test was performed. Summary 1. 1. Negative lexiscan stress test for ischemic ST changes by ECG criteria. 2. 2. Baseline hypertension. 3. 3. Nuclear scan to follow and will be reported separately. Please correlate with it. 4. 4. Patient informed of the above results. Protocol: Lexiscan Stress ECG Details Stage: REST Duration (min): 0 min : 54 sec HR (bpm): 55 SBP (mmHg): 140 DBP (mmHg): 87 Stage: REST Duration (min): 9 min : 31 sec HR (bpm): 54 SBP (mmHg): 140 DBP (mmHg): 87 Stage: STAGE 1 Duration (min): 1 min : 0 sec HR (bpm): 56 SBP (mmHg): 150 DBP (mmHg): 77 Stage: RECOVERY Duration (min): 1 min : 0 sec HR (bpm): 68 SBP (mmHg): 126 DBP (mmHg): 59 Stage: RECOVERY Duration (min): 2 min : 0 sec HR (bpm): 69 SBP (mmHg): 126 DBP (mmHg): 59 Stage: RECOVERY Duration (min): 3 min : 0 sec HR (bpm): 66 SBP (mmHg): 133 DBP (mmHg): 64 Stage: RECOVERY Duration (min): 4 min : 0 sec HR (bpm): 66 SBP (mmHg): 133 DBP (mmHg): 64 Stage: RECOVERY Duration (min): 4 min : 57 sec HR (bpm): 70 SBP (mmHg): 131 DBP (mmHg): 66 Rest HR: 54 bpm Peak HR: 70 bpm Rest Sys BP: 140 mmHg Peak Sys BP: 150 mmHg Max Pred HR: 138 bpm % Max Pred HR: 51 % Target HR: 117 bpm Max RPP: 10,500 bpm*mmHg Termination Reason: Completed protocol Cardiac Symptoms: Shortness of breath Total Time: 1 min : 0 sec Rest Richmond BP: 87 mmHg Peak Richmond BP: 77 mmHg Total Dose: 0.4 mg Resting ECG Sinus bradycardia with first degree AV block, anterolateral infarct and inferior infarct, age indeterminate. Stress ECG No ST changes. Arrhythmias None. Report Signatures
== END 2022-07-16 10:12 | disposition home or self-care (01) ==
PROVIDERS: PCP Internal Medicine; Visit Provider Internal Medicine
DX: Z01.810 Encounter for preprocedural cardiovascular examination (principal); I25.2 Old myocardial infarction; R94.31 Abnormal electrocardiogram [ECG] [EKG]
CPT/HCPCS: 78452; 93017; A9502; J2785

== ENCOUNTER 2022-08-27 13:52 | Outpatient (CLI) | payer MEDICARE, MEDICAID, SELFPAY ==
[2022-08-27 14:40] LABS: Basophils Percent Auto 0.6 % (0.2-1.2); Eosinophils Absolute Auto 0.1 K/mm3 (0-0.3); Eosinophils Percent Auto 1.8 % (0-4.4); Hematocrit 37.8 % (42.0-52.0); Immature Granulocyte Absolute 0.04 K/mm3 (0.00-0.031); Immature Granulocyte Percent A 0.6 % (0-0.5); Lymphocytes Absolute Auto 2.95 K/mm3 (0.9-3.2); Lymphocytes Percent Auto 41.9 % (18.3-44.2); Mean Corpuscular HGB Conc 31.7 g/dl (32-36); Mean Corpuscular Hemoglobin 26.8 pg (26-34); Mean Corpuscular Volume 84.4 fl (80-100); Monocytes Absolute Auto 0.4 K/mm3 (0.1-0.6); Neutrophils Absolute Auto 3.5 K/mm3 (1.3-6.7); Neutrophils Percent Auto 49.1 % (45.5-73.1); Platelet Count Result 162 k/mm3 (150-375); Red Blood Count 4.48 M/mm3 (4.6-6.20); Red Cell Distribution Width 15.6 % (11.5-14.5)
[2022-08-27 14:50] LABS: Creatinine Urine 156.9 mg/dL; Total Protein Urine Random 193 mg/dL; Ur Ttl Prot Creatinine Ratio 1.23 mg/mg (0-0.20)
[2022-08-27 14:52] LABS: Hemoglobin A1C 5.4 % (<5.7)
[2022-08-27 14:52] LABS: Appearance Urine Clear (Clear); Bilirubin Urine Negative (Negative); Blood Urine Negative (Negative); Color Urine Yellow (Yellow); Glucose Urine UA Negative (Negative); Ketones Urine Trace mg/dL (Negative); Leukocyte Esterase Ur Negative LEU/UL (NEGATIVE); Nitrate Urine Negative (Negative); Protein Urine 3+ mg/dL (Negative); Specific Grav Ur >= 1.030 (1.001-1.035); Urobilinogen Urine 0.2 mg/dL (<2.0); pH Urine 5.5 (5.0-9.0)
[2022-08-27 14:55] LABS: Alanine Aminotransferase 8 U/L (6-50); Albumin Level 4.4 g/dL (3.5-5.1); Alkaline Phosphatase 69 U/L (38-126); Anion Gap 13 mmol/L (8-16); Aspartate Amino Transferase 20 U/L (17-59); Bilirubin,Total 0.5 mg/dL (0.2-1.3); Blood Urea Nitrogen 20 mg/dL (9-20); Carbon Dioxide 23 mmol/L (22-30); Chloride 101 mmol/L (98-107); Cholesterol 137 mg/dL (0-200); Estimated Glomerular Filt Rate 53; Glucose 109 mg/dL (65-110); HDL Direct 30 mg/dL; Phosphorus 4.4 mg/dL (2.5-4.5); Potassium 4.1 mmol/L (3.4-5.0); Sodium 137 mmol/L (137-145); Triglycerides 104 mg/dL (<150)
[2022-08-27 14:59] LABS: Mucus Urine Rare /lpf; RBC Urine 0-2 /hpf (0-2); Squamous Epithelial Cell Urine Rare /hpf (Few); WBC Urine 0-3 /hpf (0-3)
[2022-08-27 15:05] LABS: Parathyroid Intact 53.6 pg/mL (7.5-53.5)
[2022-08-27 15:06] LABS: LDL Cholesterol Direct 67 mg/dL
[2022-08-27 15:10] LABS: Vitamin D 25 Hydroxy 34.9 ng/mL
[2022-08-27 15:19] LABS: Add Urine Microscopic? YES
[2022-08-27 16:16] LABS: Platelet Estimate Adequate (Adequate)
[2022-08-27 16:17] LABS: Anisocytosis 1+ (NORMAL)
[2022-08-27 17:56] LABS: Schistocytes None Seen (NORMAL)
== END 2022-08-27 13:53 | disposition home or self-care (01) ==
PROVIDERS: PCP Internal Medicine; Visit Provider Internal Medicine Nephrology
DX: N40.0 Benign prostatic hyperplasia without lower urinary tract symptoms (principal); J44.9 Chronic obstructive pulmonary disease, unspecified; N18.31 Chronic kidney disease, stage 3a; M48.02 Spinal stenosis, cervical region; C91.Z0 Other lymphoid leukemia not having achieved remission; E03.9 Hypothyroidism, unspecified; K21.9 Gastro-esophageal reflux disease without esophagitis; I12.9 Hypertensive chronic kidney disease with stage 1 through stage 4 chronic kidney disease, or unspecified chronic kidney disease
CPT/HCPCS: 36415; 80053; 80061; 81001; 82306; 82570; 83036; 83970; 84100; 84156; 85025

== ENCOUNTER 2022-10-15 07:58 | Outpatient (CLI) | payer MEDICARE, MEDICAID, SELFPAY ==
--- NOTE | ~2022-10-15 | PE_ITS ---
EXAMINATION: PET skull to mid thigh DATE: 10/15/2022 11:02 INDICATION: Solitary pulmonary nodule TECHNIQUE: Blood glucose level was 104 mg/dL. 8.961 mCi of 18-fluorodeoxyglucose (18-FDG) was adminis tered i.v. Low dose computed tomography (CT) images were acquired from the base of the brain to the p roximal thighs for attenuation correction and anatomic localization. Positron emission tomography (PE T) images were acquired in the same distribution beginning 51 minutes after injection. Images includi ng fused PET/CT images were reconstructed in axial, coronal, and sagittal planes. Automated exposure control technique was employed. The dose-length product was 575.00mGy-cm. COMPARISON: CT abdomen and pelvis dated 08/12/[address] chest, abdomen and pelvis dated 05/24/2020 FINDINGS: Head/neck: There is symmetric increased activity in the oral cavity, palatine tonsils, laryngeal muscles and ocu lar muscles without CT correlate, likely physiologic. No pathologically enlarged cervical lymphadenop athy or suspicious foci of increased FDG uptake in the visualized head or neck. Chest: FDG uptake with maximal SUV of 5.5 associated with an approximately 11 x 10 mm nodule in the right mi ddle lobe cephalad to a chronic branching mucocele. The nodular opacity appears larger and with more irregular spiculated margins when compared with CT dated 03/03/2019 at which time this region measures approximately 7 x 5 mm with smooth margins. Dependent groundglass opacities in bilateral lower lobes most likely representing dependent atelectasis. Unchanged small calcified nodule at the margins of th e FDG avid right middle lobe nodule along with calcified right hilar and mediastinal lymph nodes cons istent with old granulomatous disease. No other suspicious pulmonary nodules, suspected pneumonia or pleural effusion. Heart size is normal. Atherosclerotic coronary artery calcification. No pericardial effusion. Thoracic aorta is normal in caliber. No pathologically enlarged or FDG avid thoracic lymph adenopathy. Likely physiologic relatively diffuse muscular uptake along the right infraspinatus musc le belly and smaller regions of increased uptake along the medial side of the right teres minor muscl e belly without radiologic correlate which is likely physiologic. Relatively symmetric likely degener ative synovial uptake along the periphery of the bilateral glenohumeral joints. Abdomen/pelvis/proximal thighs: Status post right nephrectomy. Physiologic renal accumulation and excretion of FDG activity in the le ft kidney, proximal left ureter and bladder. Cholecystectomy clips the gallbladder fossa. Normal degr ee and heterogenous pattern of increased uptake throughout the liver without radiologic correlate or dominant FDG avid lesion. The pancreas, spleen and bilateral adrenal glands are normal. There is mode rate colonic diverticulosis with a sigmoid predominance. There is no adjacent inflammatory change to suggest diverticulitis. Mild to moderate uptake scattered throughout the bowels without radiologic c orrelate, also likely physiologic. No other abnormal foci of increased FDG uptake or pathologically e nlarged lymphadenopathy in the abdomen, pelvis or proximal thighs. Musculoskeletal: There are bridging osteophytes at multiple levels in the spine, consistent with diffuse idiopathic sk eletal hyperostosis (DISH). Mild to moderate cervical and thoracic spondylosis and severe lumbar spon dylosis. No suspicious lytic, blastic or FDG avid bone lesions. IMPRESSION: 1. Moderate FDG uptake associated with enlarging spiculated nodule at the cephalad margin of a chroni c bronchoceles in the right middle lobe. This could be either infectious/inflammatory or malignant in etiology and would consider CT guided percutaneous biopsy. Reviewed, dictated and finalized at locat
[2022-10-15 08:30] LABS: Glucose Point of Care 104 mg/dl (65-105)
== END 2022-10-15 07:59 | disposition home or self-care (01) ==
PROVIDERS: PCP Internal Medicine; Visit Provider Internal Medicine
DX: R91.1 Solitary pulmonary nodule (principal)
CPT/HCPCS: 78815; A9552

== ENCOUNTER 2022-10-16 16:18 | Outpatient (CLI) | payer MEDICARE, MEDICAID, SELFPAY ==
--- NOTE | ~2022-10-16 | XR_ITS ---
Left Shoulder Technique: AP and scapular Y views were obtained. Clinical History: Pain Findings: No fracture or dislocation is seen. Osseous alignment is anatomic. The glenohumeral and acr omioclavicular joint spaces are preserved. Suggestion of amorphous subtle calcific densities overlyin g the rotator cuff. Impression: Possible calcific tendinitis of the rotator cuff. No acute fracture or dislocation. Reviewed, dictated and finalized at location M. ONAL SERVICE WORKERS Impression: Possible calcific tendinitis of the rotator cuff. No acute fracture or dislocation.
== END 2022-10-16 16:19 | disposition home or self-care (01) ==
PROVIDERS: PCP Internal Medicine; Visit Provider Internal Medicine
DX: M25.512 Pain in left shoulder (principal)
CPT/HCPCS: 73030

== ENCOUNTER 2022-10-31 03:41 | Outpatient (CLI) | payer MEDICARE, MEDICAID, SELFPAY ==
[2022-10-18 10:18] VITALS: BMI 27.4
--- NOTE | 2022-10-18 10:31 | PC.NURSE ---
Pre Radiology instructions Report to the outpatient [facility] on date Procedure Time: ____ YOU MAY BE MONITORED AT HOSPITAL FOR UP TO 4 HOURS AFTER YOUR PROCEDURE. A visitors will be allowed to accompany the patient into the hospital. ?The visitor will be instructed to remain with patient at all times or leave the building due to restrictions.? We will allow the visitor to come back to the postoperative area when patient is ready.? NO children visitors allowed at this time. You and your visitor will be asked to self-screen and do not enter if you have any COVID symptoms. A mask is REQUIRED within the hospital. Patients are to have no food or drink 6 hours prior to procedure time, 5:00AM. Driving will be restricted after the procedure, you must have a person to drive you home. Labs will be drawn in preop area and once reviewed, you will be taken to radiology area for procedure. When the procedure is completed, you will be taken to outpatient where you will be monitored for several hours. You may have one visitor in this area. Other than holding anti-coagulants, patient may take other medication(s) as scheduled. Prior to your appointment date patients are instructed to hold anti-coagulants after discussing with ordering provider to stop. If unable to discontinue anti-coagulants please notify radiologist. ? No aspirin or warfarin (Coumadin) for 7 days prior to the procedure. ? No clopidogrel (Plavix), ticagrelor (Brilinta), prasugrel (Effient) or dabigatran (Pradaxa) for 5 days prior to the procedure. ? No rivaroxaban (Xarelto), apixaban (Eliquis), dipyridamole (Aggrenox or Persantine) or cilostazol (Pletal) for 2 days prior to the procedure. Medications to discontinue per physician: __NONE Date to take last dose: Please leave all valuables, including medications, at home the day of procedure. The hospital will not accept responsibility for valuables. Wear comfortable, loose fitting clothing.? Follow any additional instructions given to you from ordering provider. Telephone instructions given to _PATIENT____and asked if any additional questions and then verbalized understanding. Patient advised to call scheduling provider office or registration scheduling [phone] if any additional questions.
[2022-10-31] VITALS (10 sets, daily range): BP systolic 116–131; BP diastolic 64–72; PULSE 64–74; RESP 16–20; TEMP 36.9; O2SAT 96–100
--- NOTE | ~2022-10-31 | XR_ITS ---
EXAMINATION: XR chest 1V portable DATE: 10/31/2022 14:49 INDICATION: Right lung nodule status post percutaneous biopsy. TECHNIQUE: A single frontal view of the chest was obtained. COMPARISON: Chest single view at 12:47 PM, chest CT 10/09/2022 FINDINGS: There is mild atelectasis in the lower lung zones. There is a nodule in right lower lobe. N o pleural effusion or pneumothorax. The heart size is normal. IMPRESSION: 1. Nodule in right lung lower lobe, which is indeterminate for malignancy. 2. Mild atelectasis in the lower lung zones. Reviewed, dictated and finalized at location A. TER SUPERVISOR
--- NOTE | ~2022-10-31 | XR_ITS ---
Portable chest x-ray Comparison: 10/31/2022 at 11:49 AM Clinical History: Postbiopsy Findings: Probable subtle 1.6 cm right lower lobe pulmonary nodule noted. Left lung clear. No pneumo thorax. Cardiomediastinal silhouette is stable. Bones and soft tissues are unremarkable. Impression: No pneumothorax. Subtle 1.6 cm right lower lobe pulmonary artery. Follow-up with biopsy results. Reviewed, dictated and finalized at [facility]. MOLD MACHINE OPERATOR Impression: No pneumothorax. Subtle 1.6 cm right lower lobe pulmonary artery. Follow-up with biopsy results.
--- NOTE | ~2022-10-31 | CT_ITS ---
EXAMINATION: CT biopsy lung w/imaging DATE: 10/31/2022 11:49 INDICATION: Right lung nodule. TECHNIQUE: The procedure including the risks, benefits, and alternatives and possibility of chest tub e placement were discussed with the patient. Risks discussed included infection, hemorrhage, approxim ately 1/3 risk of pneumothorax, approximately 1/10 risk of pneumothorax severe enough to warrant ches t tube placement, and rarely . The patient understood the risks and agreed to proceed. The patie nt was placed supine with the right side elevated. The skin overlying the right lung was prepped and draped in sterile fashion. Anesthetic was administered with 1% lidocaine subcutaneously. A 19 gaug e outer needle was advanced under CT guidance to the lesion of interest. A 20 gauge core biopsy needl e was then used to obtain 3 core biopsy specimens. The needle was removed and the entry site was marissa james and dressed. The mA was adjusted according to patient size. Iterative reconstruction technique wa s employed. The dose-length product was 470.89 mGy-cm. There were no immediate complications. FINDINGS: CT images demonstrate the outer needle tip adjacent to a 1.7 cm nodule in right lower lobe. IMPRESSION: 1. CT-guided core needle biopsy of a 1.7 cm nodule in right lung lower lobe. Reviewed, dictated and finalized at location A. PHONE SERVICES SALES REPRESENTATIVE
--- NOTE | ~2022-10-31 | XR_ITS ---
XR chest 1V DATE: 10/31/2022 11:51 INDICATION: Post lung biopsy TECHNIQUE: AP chest COMPARISON: 10/31/2022 CT lung biopsy images 11/2021 PA and lateral chest FINDINGS: No apparent pneumothorax is noted following CT-guided biopsy of right lung mass. IMPRESSION: No apparent post-biopsy right pneumothorax Reviewed, dictated and finalized at location L. GHT CAR LOADER
[2022-10-31] MEDS: SODIUM CHLORIDE 0.9% IV 1,000 ML 30 ML IV CONT (10:05)
[2022-10-31 10:14] LABS: Immature Platelet Fraction Pct 5.5 % (0.9-11.2); Mean Platelet Volume 11.1 fl (7.4-10.4); Platelet Count Result 109 k/mm3 (150-375)
[2022-10-31 10:28] LABS: INR 1.1; Prothrombin Time 13.6 Seconds (11.1-14.7)
--- NOTE | 2022-10-31 14:56 | SUR.PHASEII ---
1456- Call to Dr. Waters patient OK for discharge home- chest x-ray reviewed by Dr. Waters at this time.
== END 2022-10-31 15:29 | disposition home or self-care (01) ==
PROVIDERS: PCP Internal Medicine; Referring Provider Internal Medicine; Visit Provider Radiology Diagnostic Radiology
PROC: BB24ZZZ Computerized Tomography (CT Scan) of Bilateral Lungs (ICD-10-PCS; CPT 32408; principal; 2022-10-31 11:00)
DX: R91.8 Other nonspecific abnormal finding of lung field (principal)
CPT/HCPCS: 32408; 36415; 71045; 85049; 85055; 85610; 88305; 88312; J7030

== ENCOUNTER 2023-01-30 16:23 | Outpatient (CLI) | payer MEDICARE, SELFPAY ==
--- NOTE | ~2023-01-30 | XR_ITS ---
XR chest 2V DATE: 01/30/2023 16:59 INDICATION: Chronic large cardiopulmonary disease TECHNIQUE: 10/31/2022 portable AP chest COMPARISON: 10/31/2019 portable AP chest 10/31/[address] chest FINDINGS: Soft tissue mass is again noted in the lateral right lower lung, suggesting to 2 CT guided biopsy on 10/31/2022. There is mild infiltrate and/or atelectasis at the right lung base. Is mild elevation of the right di aphragm. Cardiomegaly. Aortic calcification, ectasia and unfolding. No hilar or mediastinal enlargement is rio dent. No pleural effusion or pulmonary vascular congestion or pneumothorax. Osteopenia. Status post cholecystectomy. IMPRESSION: Persistent soft tissue mass in the right lower lung Mild infiltrate or atelectasis at the right lung base Cardiomegaly Aortic atherosclerosis Status post cholecystectomy Reviewed, dictated and finalized at location A.
[2023-01-30 17:49] LABS: Alanine Aminotransferase 12 U/L (6-50); Albumin Level 3.8 g/dL (3.5-5.1); Alkaline Phosphatase 95 U/L (38-126); Anion Gap 8 mmol/L (8-16); Aspartate Amino Transferase 23 U/L (17-59); Bilirubin,Total 0.6 mg/dL (0.2-1.3); Blood Urea Nitrogen 23 mg/dL (9-20); Calcium 8.6 mg/dL (8.4-10.2); Carbon Dioxide 25 mmol/L (22-30); Chloride 103 mmol/L (98-107); Estimated Glomerular Filt Rate > 60; Glucose 123 mg/dL (65-110); Sodium 136 mmol/L (137-145)
[2023-01-30 17:57] LABS: NT Pro B Type Natriuretic Pept 373 pg/mL (19.9-100)
== END 2023-01-30 16:24 | disposition home or self-care (01) ==
PROVIDERS: PCP Internal Medicine; Visit Provider Nurse Practitioner Family
DX: E03.9 Hypothyroidism, unspecified (principal); J44.9 Chronic obstructive pulmonary disease, unspecified; R60.0 Localized edema; N18.31 Chronic kidney disease, stage 3a
CPT/HCPCS: 36415; 71046; 80053; 83880; 84439; 84443

== ENCOUNTER 2023-02-11 13:18 | Outpatient (CLI) | payer MEDICARE, MEDICAID, SELFPAY ==
[2023-02-11 14:02] LABS: Basophils Absolute Auto 0.1 K/mm3 (0.0-0.1); Basophils Percent Auto 0.8 % (0.2-1.2); Eosinophils Absolute Auto 0.4 K/mm3 (0-0.3); Eosinophils Percent Auto 4.7 % (0-4.4); Hematocrit 36.4 % (42.0-52.0); Hemoglobin 11.5 g/dL (14.0-18.0); Immature Granulocyte Absolute 0.04 K/mm3 (0.00-0.031); Immature Granulocyte Percent A 0.5 % (0-0.5); Lymphocytes Percent Auto 42.8 % (18.3-44.2); Mean Corpuscular HGB Conc 31.6 g/dl (32-36); Mean Corpuscular Hemoglobin 27.3 pg (26-34); Mean Corpuscular Volume 86.3 fl (80-100); Mean Platelet Volume 11.1 fl (7.4-10.4); Monocytes Absolute Auto 0.6 K/mm3 (0.1-0.6); Monocytes Percent Auto 8.3 % (2.6-8.5); Neutrophils Absolute Auto 3.2 K/mm3 (1.3-6.7); Neutrophils Percent Auto 42.9 % (45.5-73.1); Platelet Count Result 156 k/mm3 (150-375); Red Blood Count 4.22 M/mm3 (4.6-6.20); Red Cell Distribution Width 16.1 % (11.5-14.5); White Blood Count 7.5 K/mm3 (4.5-10.0)
[2023-02-11 14:08] LABS: Appearance Urine Clear (Clear); Bacteria Urine None Seen /hpf; Bilirubin Urine Negative (Negative); Blood Urine Negative (Negative); Color Urine Yellow (Yellow); Glucose Urine UA Negative (Negative); Ketones Urine Negative (Negative); Leukocyte Esterase Ur Negative LEU/UL (NEGATIVE); Nitrate Urine Negative (Negative); Non Pathogenic Casts 0-2; Protein Urine 3+ mg/dL (Negative); RBC Urine 0-2 /hpf (0-2); Specific Grav Ur 1.016 (1.001-1.035); Squamous Epithelial Cell Urine None seen /hpf (Few); Urobilinogen Urine 0.2 mg/dL (<2.0); WBC Urine 0-5 /hpf (0-3)
[2023-02-11 14:13] LABS: Add Urine Microscopic? YES
[2023-02-11 14:23] LABS: Creatinine Urine 93.7 mg/dL; Total Protein Urine Random 187 mg/dL
[2023-02-11 14:25] LABS: Platelet Estimate Adequate (Adequate)
[2023-02-11 14:26] LABS: Atypical Lymphocytes Present; Schistocytes None Seen (NORMAL)
[2023-02-11 14:27] LABS: Alanine Aminotransferase 12 U/L (6-50); Albumin Level 4.3 g/dL (3.5-5.1); Alkaline Phosphatase 88 U/L (38-126); Anion Gap 9 mmol/L (8-16); Aspartate Amino Transferase 22 U/L (17-59); Bilirubin,Total 0.5 mg/dL (0.2-1.3); Blood Urea Nitrogen 23 mg/dL (9-20); Calcium 8.9 mg/dL (8.4-10.2); Carbon Dioxide 27 mmol/L (22-30); Chloride 102 mmol/L (98-107); Cholesterol 127 mg/dL (0-200); Estimated Glomerular Filt Rate 58; Glucose 119 mg/dL (65-110); HDL Direct 25 mg/dL; Phosphorus 4.4 mg/dL (2.5-4.5); Potassium 4.1 mmol/L (3.4-5.0); Sodium 138 mmol/L (137-145); Triglycerides 198 mg/dL (<150)
[2023-02-11 14:29] LABS: Hemoglobin A1C 5.1 % (<5.7)
[2023-02-11 14:38] LABS: LDL Cholesterol Direct 61 mg/dL; Parathyroid Intact 140.1 pg/mL (7.5-53.5)
[2023-02-11 14:49] LABS: Vitamin D 25 Hydroxy 41.6 ng/mL
== END 2023-02-11 13:19 | disposition home or self-care (01) ==
PROVIDERS: PCP Internal Medicine; Visit Provider Internal Medicine Nephrology
DX: N40.0 Benign prostatic hyperplasia without lower urinary tract symptoms (principal); I10 Essential (primary) hypertension; R73.09 Other abnormal glucose; K21.9 Gastro-esophageal reflux disease without esophagitis; E03.9 Hypothyroidism, unspecified; M15.9 Polyosteoarthritis, unspecified; M48.02 Spinal stenosis, cervical region; N18.31 Chronic kidney disease, stage 3a; C91.90 Lymphoid leukemia, unspecified not having achieved remission; J44.9 Chronic obstructive pulmonary disease, unspecified
CPT/HCPCS: 36415; 80053; 80061; 81001; 82306; 82570; 83036; 83970; 84100; 84156; 85025

== ENCOUNTER 2023-08-30 18:14 | Emergency (ER) | payer OTHER, SELFPAY ==
[2023-08-30] VITALS (26 sets, daily range): BP systolic 109–133; BP diastolic 52–94; PULSE 53–90; RESP 13–31; TEMP 36.7; O2SAT 95–99
--- NOTE | ~2023-08-30 | XR_ITS ---
EXAMINATION: XR hip RT 2V w AP pelvis DATE: 08/30/2023 20:14 INDICATION: Right hip pain TECHNIQUE: Anteroposterior view of the pelvis and anteroposterior and frog-leg lateral views of the r ight hip were obtained. COMPARISON: Pelvis radiograph dated 02/04/2022 FINDINGS: Likely basicervical fracture of the proximal left femur which is fixed with a lateral plate and screw s including dynamic femoral neck compression screw. No lucency surrounding the fixation instrumentati on to suggest loosening or infection. Alignment appears near-anatomic. No acute fractures identified. 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 Multiple phleboliths in the pelv is. Moderate lumbar spondylosis. Surgical clips in the right lower quadrant. IMPRESSION: 1. Interval internal fixation of a likely basicervical fracture the proximal right femur in near-jill omic alignment. No evident acute osseous abnormality. Reviewed, dictated and finalized at location A. IMPRESSION: 1. Interval internal fixation of a likely basicervical fracture the proximal ri ght femur in near-anatomic alignment. No evident acute osseous abnormality.
--- NOTE | 2023-08-30 19:13 | ED.GENADULT ---
HPI - General Adult General Chief complaint: Unspecified Stated complaint: hip pain Time Seen by Provider: 08/30/23 18:54 History of Present Illness HPI narrative: Patient is an 83-year-old male here complaining of bilateral hip pain. Patient states that the hip pain is been present for quite some time, the right side recently gave out and seemed to be more painful recently. On attempting to obtain more but timeline for him he is unable to provide more information. He is complaining of worsening pain despite taking [place] q.8 hours at home and requesting steroid injections in his hips along with increased pain medication. He is additionally complaining of a skin breakdown in his inguinal folds. He is requesting a medication for this as well. He denies any recent falls. Related Data Home Medications Medication Instructions Recorded Confirmed trospium 20 mg tablet 20 mg PO BID 08/20/21 06/03/23 alendronate 70 mg tablet 70 mg PO WEEKLY 06/03/23 06/03/23 bisacodyl 10 mg rectal suppository 10 mg RECTAL DAILY PRN 06/03/23 06/03/23 (Dulcolax (bisacodyl)) budesonide-formoterol HFA 160 2 puff inhalation Q12H 06/03/23 06/03/23 mcg-4.5 mcg/actuation aerosol inhaler carbidopa 10 mg-levodopa 100 mg 1 tablet PO TID 06/03/23 06/03/23 tablet gabapentin 400 mg capsule 400 mg PO TID 06/03/23 06/03/23 ondansetron 4 mg disintegrating 4 mg PO Q8H 06/03/23 06/03/23 tablet sennosides 8.6 mg tablet 8.6 mg PO DAILY PRN constipation 06/03/23 06/03/23 tiotropium bromide 2.5 2 puff inhalation DAILY 06/03/23 06/03/23 mcg/actuation mist for inhalation Allergies Allergy/AdvReac Type Severity Reaction Status Date / Time neomycin Allergy Unknown rash Verified 06/26/23 11:11 Sulfa (Sulfonamide Allergy Unknown Rash Verified 06/26/23 11:11 Antibiotics) castor oil AdvReac Intermediate Nausea and Verified 06/26/23 11:11 Vomiting erythromycin base AdvReac Intermediate SHAKING, Verified 06/26/23 11:11 HEADACHE Review of Systems Review of Systems: ROS unobtainable: Yes other (poor historian) [facility] Past Medical History Medical History (Updated 08/30/23 @ 21:24 by Erna Prado MD) Arthritis Benign prostatic hyperplasia Chronic anemia Chronic kidney disease, stage 3 Baseline creatinine ranges between 1.30 and 1.40. 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 Surgical History Surgical History History of appendectomy History of arthroscopy of right knee History of back surgery History of cataract extraction History of cholecystectomy History of repair of left rotator cuff History of right nephrectomy (2003) Family History Family History Father Family history of liver disease Family history of lung cancer Patient's father is Family history of primary malignant neoplasm of liver Mother Family history of heart disease in male family member before age 55 Patient's mother is Family history of coronary artery disease Acute myocardial infarction Sibling Family history of lung cancer Family history of malignant neoplasm of bone Patient's sister is Patient's brother is Malignant neoplasm of prostate Grandparent Family history of arthritis Other Family history of malignant neoplasm of kidney Social History Social History Social History: The patient is retired and lives in his own home in [place]. 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 His son lives close by a
[2023-08-30] MEDS: MORPHINE SULFATE INJ (*CRX) 10 MG/ML AMP IM (20:27)
[2023-08-30] MEDS: TOLNAFTATE 1% POWDER 45 GM BTL 1 APPLIC TOPICAL (21:09)
== END 2023-08-31 00:02 | disposition home or self-care (01) ==
PROVIDERS: Emergency Provider Student in an Organized Health Care Education/Training Program
DX: M25.551 Pain in right hip (principal); M25.552 Pain in left hip; G89.29 Other chronic pain; B35.6 Tinea cruris; G20.A1 Parkinson's disease without dyskinesia, without mention of fluctuations; I12.9 Hypertensive chronic kidney disease with stage 1 through stage 4 chronic kidney disease, or unspecified chronic kidney disease; N18.30 Chronic kidney disease, stage 3 unspecified; D64.9 Anemia, unspecified; C91.10 Chronic lymphocytic leukemia of B-cell type not having achieved remission; J44.9 Chronic obstructive pulmonary disease, unspecified; E03.9 Hypothyroidism, unspecified; G47.33 Obstructive sleep apnea (adult) (pediatric); N40.0 Benign prostatic hyperplasia without lower urinary tract symptoms; M17.0 Bilateral primary osteoarthritis of knee; K21.9 Gastro-esophageal reflux disease without esophagitis; F41.8 Other specified anxiety disorders; Z98.49 Cataract extraction status, unspecified eye; Z85.528 Personal history of other malignant neoplasm of kidney; Z87.891 Personal history of nicotine dependence; Z90.5 Acquired absence of kidney; Z90.49 Acquired absence of other specified parts of digestive tract
CPT/HCPCS: 73502; 96372; 99283; A9270; J2270

== ENCOUNTER 2023-11-14 20:06 | Emergency (ER) | payer OTHER, SELFPAY ==
[2023-11-14 20:09] VITALS: BP 137/70; PULSE 60; RESP 18; TEMP 36.9; O2SAT 95
[2023-11-15 01:33] LABS: Basophils Absolute Auto 0.1 K/mm3 (0.0-0.1); Basophils Percent Auto 0.6 % (0.2-1.2); Eosinophils Absolute Auto 0.2 K/mm3 (0-0.3); Eosinophils Percent Auto 2.8 % (0-4.4); Hematocrit 28.7 % (42.0-52.0); Hemoglobin 9.1 g/dL (14.0-18.0); Immature Granulocyte Absolute 0.03 K/mm3 (0.00-0.031); Immature Granulocyte Percent A 0.4 % (0-0.5); Lymphocytes Percent Auto 37.1 % (18.3-44.2); Mean Corpuscular HGB Conc 31.7 g/dl (32-36); Mean Corpuscular Hemoglobin 26.2 pg (26-34); Mean Corpuscular Volume 82.7 fl (80-100); Mean Platelet Volume 9.9 fl (7.4-10.4); Monocytes Absolute Auto 0.7 K/mm3 (0.1-0.6); Monocytes Percent Auto 8.8 % (2.6-8.5); Neutrophils Absolute Auto 3.9 K/mm3 (1.3-6.7); Neutrophils Percent Auto 50.3 % (45.5-73.1); Platelet Count Result 150 k/mm3 (150-375); Red Blood Count 3.47 M/mm3 (4.6-6.20); Red Cell Distribution Width 17.4 % (11.5-14.5); White Blood Count 7.8 K/mm3 (4.5-10.0)
[2023-11-15 01:52] LABS: Alanine Aminotransferase 6 U/L (6-50); Alkaline Phosphatase 78 U/L (38-126); Anion Gap 8 mmol/L (8-16); Aspartate Amino Transferase 15 U/L (17-59); Bilirubin,Total 0.5 mg/dL (0.2-1.3); Blood Urea Nitrogen 19 mg/dL (9-20); Calcium 8.1 mg/dL (8.4-10.2); Carbon Dioxide 27 mmol/L (22-30); Chloride 98 mmol/L (98-107); Estimated CRCL calculation 60 ml/min; Estimated Glomerular Filt Rate > 60; Glucose 105 mg/dL (65-110); Potassium 3.5 mmol/L (3.4-5.0); Sodium 133 mmol/L (137-145)
[2023-11-15 02:20] LABS: Anisocytosis 1+ (NORMAL); Platelet Estimate Adequate (Adequate); Schistocytes Rare (NORMAL)
--- NOTE | 2023-11-15 02:29 | ED.MALEGU ---
HPI - Male Genitourinary General Chief complaint: Urogenital-Male Stated complaint: I think I have a UTI Time Seen by Provider: 11/15/23 01:29 Source: patient Limitations: no limitations History of Present Illness HPI Narrative: Patient is a 83-year-old male presents to the emergency department complaining of ?I think I have a UTI . Patient states today he thought he noticed some blood in his urine and thinks he has a UTI because the urine looks dark and rarely colored. Patient admits to history of UTIs. Patient states he has had chronic Duron catheter in place for at least the past 4 months and is unsure who his urologist is and is unsure when the last time it was changed as requesting to have it changed today. Patient denies any abdominal pain, vomiting, recent injuries, fever, sick contacts, chest pain, difficulty breathing, diarrhea, constipation, decreased urine output, confusion, penile pain, scrotal pain. Patient denies use of blood thinners. Related Data Home Medications Medication Instructions Recorded Confirmed trospium 20 mg tablet 20 mg PO BID 08/20/21 06/03/23 alendronate 70 mg tablet 70 mg PO WEEKLY 06/03/23 06/03/23 bisacodyl 10 mg rectal suppository 10 mg RECTAL DAILY PRN 06/03/23 06/03/23 (Dulcolax (bisacodyl)) budesonide-formoterol HFA 160 2 puff inhalation Q12H 06/03/23 06/03/23 mcg-4.5 mcg/actuation aerosol inhaler gabapentin 400 mg capsule 400 mg PO TID 06/03/23 06/03/23 ondansetron 4 mg disintegrating 4 mg PO Q8H 06/03/23 06/03/23 tablet sennosides 8.6 mg tablet 8.6 mg PO DAILY PRN constipation 06/03/23 06/03/23 tiotropium bromide 2.5 2 puff inhalation DAILY 06/03/23 06/03/23 mcg/actuation mist for inhalation Allergies Allergy/AdvReac Type Severity Reaction Status Date / Time neomycin Allergy Unknown rash Verified 11/14/23 20:06 Sulfa (Sulfonamide Allergy Unknown Rash Verified 11/14/23 20:06 Antibiotics) castor oil AdvReac Intermediate Nausea and Verified 11/14/23 20:06 Vomiting erythromycin base AdvReac Intermediate SHAKING, Verified 11/14/23 20:06 HEADACHE Review of Systems Review of Systems: A 10 system review of systems was completed on the patient and is negative except for what is stated in the HPI. Nursing and ancillary documentation was reviewed. [facility] Past Medical History Medical History (Updated 11/15/23 @ 07:04 by Binh Friedman DO) Arthritis Benign prostatic hyperplasia Chronic anemia Chronic kidney disease, stage 3 Baseline creatinine ranges between 1.30 and 1.40. 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 Surgical History Surgical History History of appendectomy History of arthroscopy of right knee History of back surgery History of cataract extraction History of cholecystectomy History of repair of left rotator cuff History of right nephrectomy (2003) Family History Family History Father Family history of liver disease Family history of lung cancer Patient's father is Family history of primary malignant neoplasm of liver Mother Family history of heart disease in male family member before age 55 Patient's mother is Family history of coronary artery disease Acute myocardial infarction Sibling Family history of lung cancer Family history of malignant neoplasm of bone Patient's sister is Patient's brother is Malignant neoplasm of prostate Grandparent Family history of arthritis Other Family history of malignant neoplasm of kidney
[2023-11-15 02:46] LABS: Appearance Urine Turbid (Clear); Bacteria Urine 4+ /hpf; Bilirubin Urine Negative (Negative); Blood Urine 3+ (Negative); Color Urine Yellow (Yellow); Glucose Urine UA Negative (Negative); Ketones Urine Trace mg/dL (Negative); Leukocyte Esterase Ur 3+ LEU/UL (Negative); Need Manual Microscopic Reviewed; Nitrate Urine Negative (Negative); Protein Urine 3+ mg/dL (Negative); RBC Urine 21-50 /hpf (0-2); Specific Grav Ur 1.015 (1.001-1.035); Squamous Epithelial Cell Urine None seen /hpf (Few); Urobilinogen Urine 0.2 mg/dL (<2.0); WBC Urine >100 /hpf; pH Urine 5.5 (5.0-9.0)
[2023-11-15 02:48] LABS: Add Urine Microscopic? YES
[2023-11-15 06:21] VITALS: BP 136/92; PULSE 86; RESP 5; O2SAT 100
[2023-11-15 06:33] LABS: Appearance Urine Clear (Clear); Bacteria Urine None Seen /hpf; Bilirubin Urine Negative (Negative); Blood Urine 2+ (Negative); Color Urine Yellow (Yellow); Glucose Urine UA Negative (Negative); Ketones Urine Negative (Negative); Leukocyte Esterase Ur 2+ LEU/UL (NEGATIVE); Nitrate Urine Negative (Negative); Non Pathogenic Casts 0-2; Protein Urine 2+ mg/dL (Negative); RBC Urine 0-2 /hpf (0-2); Specific Grav Ur 1.006 (1.001-1.035); Squamous Epithelial Cell Urine None seen /hpf (Few); Urobilinogen Urine 0.2 mg/dL (<2.0); WBC Urine 51-100 /hpf (0-3)
[2023-11-15 06:34] LABS: Add Urine Microscopic? YES
[2023-11-15 08:05] VITALS: BP 128/66; PULSE 67; RESP 16; O2SAT 100
== END 2023-11-15 08:05 ==
PROVIDERS: Emergency Provider Student in an Organized Health Care Education/Training Program; PCP Family Medicine
DX: N39.0 Urinary tract infection, site not specified (principal); C91.10 Chronic lymphocytic leukemia of B-cell type not having achieved remission; G20.A1 Parkinson's disease without dyskinesia, without mention of fluctuations; J44.9 Chronic obstructive pulmonary disease, unspecified; I12.9 Hypertensive chronic kidney disease with stage 1 through stage 4 chronic kidney disease, or unspecified chronic kidney disease; N18.30 Chronic kidney disease, stage 3 unspecified; D64.9 Anemia, unspecified; N40.0 Benign prostatic hyperplasia without lower urinary tract symptoms; M17.0 Bilateral primary osteoarthritis of knee; K21.9 Gastro-esophageal reflux disease without esophagitis; E03.9 Hypothyroidism, unspecified; G47.33 Obstructive sleep apnea (adult) (pediatric); Z85.528 Personal history of other malignant neoplasm of kidney; Z87.891 Personal history of nicotine dependence; Z90.5 Acquired absence of kidney; Z90.49 Acquired absence of other specified parts of digestive tract; Z98.49 Cataract extraction status, unspecified eye
CPT/HCPCS: 36415; 51702; 80053; 81001; 85025; 87077; 87086; 87186; 96365; 99284; J0696

== ENCOUNTER 2023-11-17 15:26 | Inpatient (IN) | payer OTHER, SELFPAY ==
[2023-11-17] VITALS (9 sets, daily range): BP systolic 128–153; BP diastolic 58–87; PULSE 57–68; RESP 16–27; TEMP 36.3–37; O2SAT 97–100; BMI 25.3
--- NOTE | ~2023-11-17 | US_ITS ---
US pelvic limited 11/19/2023 10:31 Indication: Evaluate for blood clots in bladder Procedure: High-resolution pelvic ultrasound using transabdominal technique. Comparison: No prior studies for comparison. Findings: There is a Duron catheter present in the bladder. Bladder wall is thickened without discret e mass. No intraluminal masses are identified within the bladder to suggest blood clots or tumor. No extraluminal masses or fluid collections are identified. Bladder wall measures 0.55 cm. Impression: 1: Mild diffuse bladder wall thickening measuring 0.55 cm. No evidence for blood clots. Reviewed, dictated and finalized at location B. EY WORKER Impression: 1: Mild diffuse bladder wall thickening measuring 0.55 cm. No evidence for bloo d clots.
--- NOTE | ~2023-11-17 | CT_ITS ---
EXAMINATION: CT abdomen pelvis w con DATE: 11/17/2023 18:53 INDICATION: Low abdominal pain. Hematuria. TECHNIQUE: Computed tomography (CT) of the abdomen and pelvis was performed with 100 mL Omnipaque 350 intravenous contrast. Automated exposure control and iterative reconstruction technique were employe d. The dose-length product was 1186.66 mGy-cm. COMPARISON: CT abdomen and pelvis 08/02/2021, chest CT 12/10/2021 FINDINGS: The visualized portions of the lung bases demonstrate dependent atelectasis. Calcified righ t lung nodules and calcified right hilar lymph nodes are consistent with old granulomatous disease. T here is a chronic 15 mm bronchocele in right lower lobe. There is a small right pleural effusion. The heart size is normal. There are coronary artery calcifications. There is a small pericardial effusio n. There are calcifications of aortic valve. The liver and spleen are normal. There are changes of ch olecystectomy. The pancreas and adrenal glands are normal. There are changes of right nephrectomy. Th ere are cysts in left kidney measuring up to 18 mm. There is mild left hydronephrosis and hydroureter . There is diffuse bladder wall thickening. There is a Duron catheter in expected position. There is dependent material in the bladder, consistent with hematoma. The prostate is mildly enlarged. There a re scattered diverticula in the colon. There is wall thickening of the sigmoid colon. There are no di lated loops of bowel. The appendix is not visualized. There is calcified atherosclerosis of the aorta and many of the other arteries. There are no pathologically enlarged lymph nodes. There is no free i ntraperitoneal fluid. There is moderate lumbar spondylosis. There is a fracture of right femoral neck with internal fixation. IMPRESSION: 1. Hematoma in the bladder. 2. Diffuse bladder wall thickening, which may be secondary to chronic outlet obstruction from the mil dly enlarged prostate. 3. Mild left hydronephrosis and hydroureter. 4. Small right pleural effusion. 5. Small pericardial effusion. 6. Wall thickening of the sigmoid colon, likely chronic diverticulitis. Reviewed, dictated and finalized at location E. [employer]OR [employer]INO IMPRESSION: 1. Hematoma in the bladder. 2. Diffuse bladder wall thickening, which may be secondary to chronic outlet ob struction from the mildly enlarged prostate. 3. Mild left hydronephrosis and hydroureter. 4. Small right pleural effusion. 5. Small pericardial effusion. 6. Wall thickening of the sigmoid colon, likely chronic diverticulitis.
--- NOTE | ~2023-11-17 | US_ITS ---
EXAMINATION: US venous doppler [facility] DATE: 11/18/2023 15:36 INDICATION: Lower limb swelling TECHNIQUE: Grayscale ultrasound images without and with compression and Doppler ultrasound images of the bilateral lower extremity veins were obtained. COMPARISON: 02/05/2017 and 02/04/2016 FINDINGS: The visualized portions of right common femoral vein, profunda (deep) femoral vein, femoral vein, pop liteal vein, posterior tibial veins, peroneal veins, gastrocnemius vein and greater saphenous vein ou tflow remain patent. The visualized portions of left common femoral vein, profunda femoral vein, femoral vein, popliteal v ein, posterior tibial veins, peroneal veins, gastrocnemius vein and greater saphenous vein outflow re main patent. IMPRESSION: 1. No deep venous thrombosis in either lower limb. Reviewed, dictated and finalized at location A. ITATIVE FIELD PROJECT MANAGER
[2023-11-17] MEDS: ONDANSETRON INJ 4 MG/2 ML VIAL (17:26)
[2023-11-17] MEDS: MORPHINE SULFATE (*CRX) 4 MG/ML INJ (17:26)
[2023-11-17 18:12] LABS: Basophils Absolute Auto 0.1 K/mm3 (0.0-0.1); Basophils Percent Auto 0.7 % (0.2-1.2); Eosinophils Absolute Auto 0.3 K/mm3 (0-0.3); Eosinophils Percent Auto 3.7 % (0-4.4); Hematocrit 31.4 % (42.0-52.0); Hemoglobin 9.6 g/dL (14.0-18.0); Immature Granulocyte Absolute 0.03 K/mm3 (0.00-0.031); Immature Granulocyte Percent A 0.4 % (0-0.5); Lymphocytes Percent Auto 53.1 % (18.3-44.2); Mean Corpuscular HGB Conc 30.6 g/dl (32-36); Mean Corpuscular Hemoglobin 25.5 pg (26-34); Mean Corpuscular Volume 83.3 fl (80-100); Mean Platelet Volume 11.2 fl (7.4-10.4); Monocytes Absolute Auto 0.4 K/mm3 (0.1-0.6); Monocytes Percent Auto 5.2 % (2.6-8.5); Neutrophils Absolute Auto 3.1 K/mm3 (1.3-6.7); Neutrophils Percent Auto 36.9 % (45.5-73.1); Platelet Count Result 187 k/mm3 (150-375); Red Blood Count 3.77 M/mm3 (4.6-6.20); Red Cell Distribution Width 17.4 % (11.5-14.5); White Blood Count 8.5 K/mm3 (4.5-10.0)
[2023-11-17 18:19] LABS: Alanine Aminotransferase 6 U/L (6-50); Albumin Level 3.3 g/dL (3.5-5.1); Alkaline Phosphatase 67 U/L (38-126); Anion Gap 9 mmol/L (8-16); Aspartate Amino Transferase 21 U/L (17-59); Bilirubin,Total 0.6 mg/dL (0.2-1.3); Blood Urea Nitrogen 18 mg/dL (9-20); Calcium 8.3 mg/dL (8.4-10.2); Carbon Dioxide 28 mmol/L (22-30); Chloride 95 mmol/L (98-107); Estimated CRCL calculation 53 ml/min; Estimated Glomerular Filt Rate > 60; Glucose 107 mg/dL (65-110); Potassium 3.3 mmol/L (3.4-5.0); Sodium 132 mmol/L (137-145)
[2023-11-17 18:25] LABS: Bacteria Urine None Seen /hpf; Need Manual Microscopic Reviewed; Non Pathogenic Casts 0-2; RBC Urine >100 /hpf (0-2); Squamous Epithelial Cell Urine None seen /hpf (Few)
[2023-11-17 18:27] LABS: Appearance Urine Cloudy (Clear); Bilirubin Urine 1+ (Negative); Blood Urine 2+ (Negative); Color Urine Red (Yellow); Glucose Urine UA Negative (Negative); Ketones Urine Negative (Negative); Leukocyte Esterase Ur 1+ LEU/UL (Negative); Nitrate Urine Positive (Negative); Protein Urine 3+ mg/dL (Negative); Specific Grav Ur 1.009 (1.001-1.035); Urobilinogen Urine 0.2 mg/dL (<2.0); pH Urine 6.5 (5.0-9.0)
--- NOTE | 2023-11-17 18:27 | ED.MALEGU ---
HPI - Male Genitourinary General Chief complaint: Urogenital-Male Stated complaint: blood in urine Time Seen by Provider: 11/17/23 17:09 History of Present Illness HPI Narrative: Patient is an 83-year-old male presenting with hematuria. Patient is coming from a nursing facility. He has reportedly had a Duron catheter for at least the last 4 months. He has grown tired of the catheter and he convinced the [facility] to remove the Duron. This was removed this morning and he has been unable to urinate for the past 8-10 hours. He complains of severe abdominal and penile pain. He is unsure who his urologist is, he is unsure why he has a Duron catheter. Related Data Home Medications Medication Instructions Recorded Confirmed alendronate 70 mg tablet 70 mg PO WEEKLY 06/03/23 11/17/23 bisacodyl 10 mg rectal suppository 10 mg RECTAL DAILY PRN Constipation 06/03/23 11/17/23 (Dulcolax (bisacodyl)) Saccharomyces boulardii 250 mg 250 mg PO BID 11/22/23 11/22/23 capsule aspirin 81 mg chewable tablet 81 mg PO DAILY 11/22/23 11/22/23 benzonatate 200 mg capsule 200 mg PO TID 11/22/23 11/22/23 budesonide 3 mg 3 mg PO DAILY 11/22/23 11/22/23 capsule,delayed,extended release carbidopa 25 mg-levodopa 250 mg 1 tablet PO TID 11/22/23 11/22/23 tablet carvedilol 3.125 mg tablet 3.125 mg PO BID 11/22/23 11/22/23 dextran 70-hypromellose 0.1 %-0.3 1 drp EACH EYE Q12H PRN Dry Eyes 11/22/23 11/22/23 % eye drops (Artificial Tears (dextran 70-hypromellose)) furosemide 20 mg tablet 20 mg PO DAILY 11/22/23 11/22/23 gabapentin 300 mg capsule 300 mg PO TID 11/22/23 11/22/23 loperamide 2 mg tablet 2 mg PO Q4H PRN Diarrhea 11/22/23 11/22/23 magnesium hydroxide 400 mg/5 mL 30 ml PO HS PRN Constipation 11/22/23 11/22/23 oral suspension (Milk of Magnesia) melatonin 3 mg tablet 3 mg PO HS PRN Sleep 11/22/23 11/22/23 omeprazole 20 mg capsule,delayed 20 mg PO DAILY 11/22/23 11/22/23 release oxybutynin chloride 10 mg 10 mg PO DAILY 11/22/23 11/22/23 tablet,extended release 24 hr sennosides 8.6 mg-docusate sodium 1 tab-cap PO BID 11/22/23 11/22/23 50 mg tablet Allergies Allergy/AdvReac Type Severity Reaction Status Date / Time neomycin Allergy Unknown rash Verified 11/17/23 15:33 Sulfa (Sulfonamide Allergy Unknown Rash Verified 11/17/23 15:33 Antibiotics) castor oil AdvReac Intermediate Nausea and Verified 11/17/23 15:33 Vomiting erythromycin base AdvReac Intermediate SHAKING, Verified 11/17/23 15:33 HEADACHE Review of Systems Review of Systems: All systems reviewed & are unremarkable except as noted in HPI and below PMFSH Past Medical History Medical History Arthritis Benign prostatic hyperplasia Chronic anemia Chronic kidney disease, stage 3 Baseline creatinine ranges between 1.30 and 1.40. 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 Surgical History Surgical History History of appendectomy History of arthroscopy of right knee History of back surgery History of cataract extraction History of cholecystectomy History of repair of left rotator cuff History of right nephrectomy (2003) Family History Family History Father Family history of liver disease Family history of lung cancer Patient's father is Family history of primary malignant neoplasm of liver Mother Family history of heart disease in male fami
[2023-11-17 18:29] LABS: Add Urine Microscopic? YES
[2023-11-17 18:41] LABS: Hypochromasia 1+ (NORMAL); Platelet Estimate Adequate (Adequate); Schistocytes None Seen (NORMAL)
[2023-11-17 18:42] LABS: Anisocytosis 2+ (NORMAL)
[2023-11-17] MEDS: SODIUM CHLORIDE 0.9% IV 1,000 ML 999 ML IV CONT (19:30)
--- NOTE | 2023-11-17 20:08 | PM.IMHP ---
H&P: HPI History of Present Illness Date/Time: 11/17/23 20:08 Chief Complaint: Urinating blood clots Narrative: 83-year-old male past medical history of Parkinson's disease, renal cell carcinoma status post right nephrectomy, silicosis, obstructive sleep apnea, essential hypertension, silicosis and several other comorbidities who presented to the ER from [facility] due to hematuria and difficulty urinating. The patient has had a Duron catheter in place for the last 4-5 months. He came to the ER 2 days ago and had to have the Duron catheter replaced at that time his urine was consistent with UTI and urine culture was sent which grew out E coli that was pansensitive. The patient tells me that he was having abdominal distension and noticed significant blood around his Duron catheter. He was having abdominal discomfort as well. He he thought that the discomfort was due to his Duron catheter and asked the senior care nurses to remove the catheter. They removed his catheter which of course resulted in the patient having more urinary retention and abdominal discomfort. When he arrived to the ER he had a large clot at his urethral meatus. Another Duron catheter was placed in the ER here patient had return of approximately 1800 mL of frankly bloody urine. He reports that he has chronically chilled. He has not had any measured fevers. The patient does have a history of mild cognitive impairment but despite this is a good historian. He denies any changes in his bowels. He has not had any nausea or vomiting. He is hard of hearing which mildly limited history taking process as I was wearing a mask. Review of Systems Review of Systems: 12 systems were reviewed with pertinent positives and negatives per HPI. Except as documented in the HPI, all other systems were reviewed and are negative. [facility] Past Medical History Medical History Arthritis Benign prostatic hyperplasia Chronic anemia Chronic kidney disease, stage 3 Baseline creatinine ranges between 1.30 and 1.40. 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 Surgical History Surgical History History of appendectomy History of arthroscopy of right knee History of back surgery History of cataract extraction History of cholecystectomy History of repair of left rotator cuff History of right nephrectomy (2003) Family History Family History Father Family history of liver disease Family history of lung cancer Patient's father is Family history of primary malignant neoplasm of liver Mother Family history of heart disease in male family member before age 55 Patient's mother is Family history of coronary artery disease Acute myocardial infarction Sibling Family history of lung cancer Family history of malignant neoplasm of bone Patient's sister is Patient's brother is Malignant neoplasm of prostate Grandparent Family history of arthritis Other Family history of malignant neoplasm of kidney Social History Social History (Updated 11/17/23 @ 20:58 by Salma Levine DO) Social History: The patient resides at [facility]. His son lives in the local area. The patient is retired from [employer]. No alcohol, tobacco, or illicit substance. Code status: Full code. Surrogate decision maker: Mark Bird Smoking status: Nev
[2023-11-17] MEDS: cefTRIAXone 2 GM/NS 100 ML 2 GM/100 ML BAG IVPB (20:20)
[2023-11-17] MEDS: POTASSIUM CHLORIDE 20 MEQ PACKET (FOR LIQUID) 40 MEQ PO (21:39)
--- NOTE | 2023-11-17 22:34 | ADMGEN ---
This patient, Florencio Bird, was admitted to [facility] Surg Room 314-02. Patient/family oriented to hospital policies and general routines including ID bracelet, bed and alarms, visiting hours, pain management, procedures, bathroom and other care routines, personal items, smoking policy, room service/diet, and visiting hours. Information on how to activate the Rapid Response Team has been discussed. Patient/Family are encouraged to report perceived risks to care and to ask questions if they do not understand what they are told or what they should do.
[2023-11-18 06:00] VITALS: BP 138/68; PULSE 61; RESP 18; TEMP 37.2; O2SAT 98
[2023-11-18 06:02] LABS: Immature Reticulocyte Fraction 17.3 % (3.0-15.9); Reticulocyte Hemoglobin Conten 26.3 pg (28.2-35.7); Reticulocyte Percent 1.15 % (0.7-4.3); Reticulocytes Absolute 0.04 M/mm3 (0.02-0.1)
[2023-11-18 06:19] LABS: Iron 37 ug/dL (49-181)
[2023-11-18 06:29] LABS: Percent Iron Saturation 20 % (20-50)
[2023-11-18 07:21] LABS: Folic Acid 10.4 ng/mL (2.76->20)
[2023-11-18 08:13] LABS: Hematocrit 28.2 % (42.0-52.0); Hemoglobin 8.6 g/dL (14.0-18.0); Mean Corpuscular HGB Conc 30.5 g/dl (32-36); Mean Corpuscular Hemoglobin 25.4 pg (26-34); Mean Corpuscular Volume 83.4 fl (80-100); Platelet Count Result 167 k/mm3 (150-375); Red Blood Count 3.38 M/mm3 (4.6-6.20); Red Cell Distribution Width 17.5 % (11.5-14.5); White Blood Count 5.9 K/mm3 (4.5-10.0)
[2023-11-18 08:16] LABS: Anion Gap 5 mmol/L (8-16); Blood Urea Nitrogen 16 mg/dL (9-20); Calcium 8.2 mg/dL (8.4-10.2); Carbon Dioxide 28 mmol/L (22-30); Chloride 102 mmol/L (98-107); Estimated CRCL calculation 54 ml/min; Estimated Glomerular Filt Rate > 60; Glucose 77 mg/dL (65-110); Magnesium 1.6 mg/dL (1.6-2.3); Potassium 3.8 mmol/L (3.4-5.0); Sodium 135 mmol/L (137-145)
[2023-11-18] MEDS: TAMSULOSIN HCL 0.4 MG CAPSULE 0.8 MG PO (09:29)
[2023-11-18] MEDS: DULoxetine HCL 60 MG CAPSULE.DR PO (09:29)
[2023-11-18] MEDS: GABAPENTIN 400 MG CAPSULE PO ×3 (09:29→17:49)
[2023-11-18] MEDS: ATORVASTATIN 40 MG TABLET 80 MG PO (09:29)
[2023-11-18 09:30] VITALS: O2SAT 97
[2023-11-18] MEDS: amLODIPine BESYLATE 5 MG TABLET PO (09:30)
[2023-11-18] MEDS: PANTOPRAZOLE 40 MG TABLET PO (09:30)
[2023-11-18] MEDS: ONDANSETRON HCL ODT 4 MG TABLET PO ×3 (09:30→20:44)
[2023-11-18] MEDS: LEVOTHYROXINE SODIUM 100 MCG TABLET PO (09:30)
[2023-11-18] MEDS: HYDROcodone/acetaminophen (*CRX) 5-325 MG TABLET 1 TAB PO ×2 (09:32→20:43)
--- NOTE | 2023-11-18 09:58 | PM.IMPN ---
Progress Note: A&P Assessment and Plan (1) E. coli UTI: Code(s): N39.0 - Urinary tract infection, site not specified; B96.20 - Unspecified Escherichia coli [E. coli] as the cause of diseases classified elsewhere Status: Acute Assessment and Plan: Pansensitive E coli per previous urine culture. Patient is on Rocephin (2) Gross hematuria: Code(s): R31.0 - Gross hematuria Status: Acute Assessment and Plan: CBI catheter in place, neurology has been consulted but has not yet seen patient, hematoma in the bladder per imaging (3) Urinary retention due to benign prostatic hyperplasia: Code(s): N40.1 - Benign prostatic hyperplasia with lower urinary tract symptoms; R33.8 - Other retention of urine Status: Acute Assessment and Plan: See 2. (4) MARVIN (obstructive sleep apnea): Code(s): G47.33 - Obstructive sleep apnea (adult) (pediatric) Status: Acute Assessment and Plan: AutoPAP ordered (5) Acute on chronic anemia: Code(s): D64.9 - Anemia, unspecified Status: Acute Assessment and Plan: Will monitor daily, acute blood loss from hematuria and hematoma, avoid anticoagulants if possible (6) Gastroesophageal reflux disease: Qualifiers: Esophagitis presence: esophagitis presence not specified Qualified Code(s): K21.9 - Gastro-esophageal reflux disease without esophagitis Code(s): K21.9 - Gastro-esophageal reflux disease without esophagitis Status: Acute Assessment and Plan: Stable, continue home medications Time Spent With Patient Time with patient: 25 - 35 minutes Subjective Date/time seen: 11/18/23 09:58 Interval history: Patient complaining of back pain right hip pain which have been chronic and hematuria which is relatively new. Urology has been consulted has seen the patient yet. He had CBI catheter placed but is on CBI. Patient denies nausea vomiting difficulty breathing fever chills or chest pain. Review of Systems Review of Systems: 12 systems were reviewed with pertinent positives and negatives per HPI. Except as documented in the HPI, all other systems were reviewed and are negative. All systems reviewed & are unremarkable except as noted in HPI and below Exam Narrative: Weight 79 kg BMI 24.3 Const: Other: No acute distress, well-developed well-nourished HENMT: Other: Mucous membranes are tacky, no oral pharyngeal erythema, edentulous Eyes: Other: Equal and reactive, no scleral icterus evidence of prior cataract surgery, positive conjunctival pallor Neck: Other: No JVD, supple Resp: Other: Clear to auscultation bilaterally, no increased work of breathing Cardio: Other: Regular rate, regular rhythm, 2+ bilateral radial pedal pulses GI: Other: Soft, nontender, nondistended, positive bowel sounds : Other: Duron catheter in place with bright red tinged urine cloudy Skin: Other: Generalized pallor, non jaundice, cool to touch Neuro: Other: Alert oriented x4, speech is clear, no facial asymmetry, hard of hearing, decreased sensation to the feet Extrem: Other: 1+ pitting edema to ankles and feet bilaterally Psych: Other: Pleasant and cooperative, odd affect, appropriate mood, judgment insight intact Objective Data Vital Signs Vital Signs: Vital Signs - 24 hr 11/17/23 15:27 11/17/23 15:30 11/17/23 15:31 Temperature Pulse Rate 63 68 58 L Respiratory Rate 16 19 20 Blood Pressure 140/83 140/87 Pulse Oximetry 100 100 100 Oxygen Delivery Room Air 11/17/23 15:45 11/17/23 15:46 11/17/23 17:54 Temperature Pulse Rate 64 57 L 64 Respiratory Rate 27 H 19 22 H Blood Pressure 133/72 132/83 Pulse Oximetry 100 99 100 Oxygen Delivery 11/17/23 20:15 11/17/23 21:36 11/17/23 22:25 Temperature 37.0 C 36.3 C L Pulse Rate 63 64 Respiratory Rate 20 18 Blood Pressure 128/
[2023-11-18] MEDS: WATER FOR IRRIGATION, STERILE 1,000 ML BOTTLE 1000 ML (12:53)
--- NOTE | 2023-11-18 13:14 | WPDURCON ---
Assessment and Plan Assessment and plan (1) Gross hematuria: Code(s): R31.0 - Gross hematuria Status: Acute Assessment and Plan: Etiology most likely secondary to Duron trauma and urinary retention. I personally irrigated [address] way Duron and retrieve several clots. It then irrigated clear. Have recommended continuous bladder irrigation. Will re-evaluate in the morning. (2) Urinary retention due to benign prostatic hyperplasia: Code(s): N40.1 - Benign prostatic hyperplasia with lower urinary tract symptoms; R33.8 - Other retention of urine Status: Acute Assessment and Plan: Etiology of retention is unclear. At some point he will require a cystoscopy but if he has a urologist I would suggest he continue to follow up with that physician. Urology Consult Note HPI Date Seen: 11/18/23 Time Seen: 13:14 Requesting Physician: Salma Levine DO Primary Care Provider: Raoul Forbes MD Consult Narrative Reason for consult: hematuria Narrative: Florencio Bird is a 83 year old male with a history of right nephrectomy 25-30 years ago. He also has a history of Parkinson's and also appears to have had a chronic indwelling Duron for the past 4-5 months. For some reason Duron catheter was [facility] the shelter. On the loss it was replaced in he developed hematuria. He underwent a CT scan which revealed a solitary left kidney. There were some benign cysts in the kidney and some small amount of clot in the bladder. The time of my evaluation he has a 3 way Duron in but is not been irrigated in order any CBI running. He states that he has seen a physician in [place] and possibly [place]. I do not have records and he does not recall that physician's name. Review of Systems Review of Systems: All systems reviewed & are unremarkable except as noted in HPI and below PMFSH Past Medical History Medical History Arthritis Benign prostatic hyperplasia Chronic anemia Chronic kidney disease, stage 3 Baseline creatinine ranges between 1.30 and 1.40. 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 Surgical History Surgical History History of appendectomy History of arthroscopy of right knee History of back surgery History of cataract extraction History of cholecystectomy History of repair of left rotator cuff History of right nephrectomy (2003) Family History Family History Father Family history of liver disease Family history of lung cancer Patient's father is Family history of primary malignant neoplasm of liver Mother Family history of heart disease in male family member before age 55 Patient's mother is Family history of coronary artery disease Acute myocardial infarction Sibling Family history of lung cancer Family history of malignant neoplasm of bone Patient's sister is Patient's brother is Malignant neoplasm of prostate Grandparent Family history of arthritis Other Family history of malignant neoplasm of kidney Social History Social History Social History: The patient resides at [facility]. His son lives in the local area. The patient is retired from [employer]. No alcohol, tobacco, or illicit substance. Code status: Full code. Surrogate decision maker: Mark Moreira
[2023-11-18 13:52] VITALS: BP 108/57; PULSE 50; RESP 16; TEMP 35.8; O2SAT 96
[2023-11-18] MEDS: FLUTICASONE/SALMETEROL 115-21 MCG INHALER 1 PUFF 2 PUFF INHALATION (20:06)
[2023-11-18 20:15] VITALS: PULSE 60; RESP 18
[2023-11-18] MEDS: FINASTERIDE 5 MG TABLET PO (20:43)
[2023-11-18 21:28] VITALS: BP 105/71; PULSE 60; RESP 18; TEMP 36.6; O2SAT 100
[2023-11-19 06:00] VITALS: BP 131/66; PULSE 69; RESP 20; TEMP 37.1; O2SAT 100
[2023-11-19] MEDS: ONDANSETRON HCL ODT 4 MG TABLET PO ×3 (06:08→21:17)
[2023-11-19] MEDS: LEVOTHYROXINE SODIUM 100 MCG TABLET PO (06:08)
[2023-11-19] MEDS: HYDROcodone/acetaminophen (*CRX) 5-325 MG TABLET 1 TAB PO ×2 (06:13→21:21)
[2023-11-19 06:26] LABS: Basophils Percent Auto 0.7 % (0.2-1.2); Eosinophils Absolute Auto 0.3 K/mm3 (0-0.3); Eosinophils Percent Auto 5.7 % (0-4.4); Hematocrit 25.5 % (42.0-52.0); Hemoglobin 7.8 g/dL (14.0-18.0); Immature Granulocyte Absolute 0.02 K/mm3 (0.00-0.031); Immature Granulocyte Percent A 0.4 % (0-0.5); Lymphocytes Absolute Auto 2.55 K/mm3 (0.9-3.2); Lymphocytes Percent Auto 45.2 % (18.3-44.2); Mean Corpuscular HGB Conc 30.6 g/dl (32-36); Mean Corpuscular Hemoglobin 25.6 pg (26-34); Mean Corpuscular Volume 83.6 fl (80-100); Mean Platelet Volume 10.4 fl (7.4-10.4); Monocytes Absolute Auto 0.6 K/mm3 (0.1-0.6); Monocytes Percent Auto 9.8 % (2.6-8.5); Neutrophils Absolute Auto 2.2 K/mm3 (1.3-6.7); Neutrophils Percent Auto 38.2 % (45.5-73.1); Platelet Count Result 144 k/mm3 (150-375); Red Blood Count 3.05 M/mm3 (4.6-6.20); Red Cell Distribution Width 17.4 % (11.5-14.5); White Blood Count 5.6 K/mm3 (4.5-10.0)
[2023-11-19 06:44] LABS: Alanine Aminotransferase 10 U/L (6-50); Albumin Level 2.6 g/dL (3.5-5.1); Alkaline Phosphatase 55 U/L (38-126); Anion Gap 3 mmol/L (8-16); Aspartate Amino Transferase 14 U/L (17-59); Bilirubin,Total 0.4 mg/dL (0.2-1.3); Blood Urea Nitrogen 19 mg/dL (9-20); Calcium 7.9 mg/dL (8.4-10.2); Carbon Dioxide 31 mmol/L (22-30); Chloride 100 mmol/L (98-107); Estimated CRCL calculation 50 ml/min; Estimated Glomerular Filt Rate > 60; Glucose 81 mg/dL (65-110); Magnesium 1.7 mg/dL (1.6-2.3); Sodium 134 mmol/L (137-145)
[2023-11-19] MEDS: UMECLIDINIUM BROMIDE 62.5 MCG ELLIPTA 1 PUFF INHALATION (07:09)
[2023-11-19] MEDS: FLUTICASONE/SALMETEROL 115-21 MCG INHALER 1 PUFF 2 PUFF INHALATION ×2 (07:09→22:21)
[2023-11-19 07:10] VITALS: PULSE 65; RESP 18; O2SAT 95
--- NOTE | 2023-11-19 08:05 | WPDUROPN2 ---
Progress Note: A&P Assessment and Plan (1) Gross hematuria: Code(s): R31.0 - Gross hematuria Status: Acute Assessment and Plan: Will obtain ultrasound was bladder to rule out any residual clots his hemoglobin is slightly decreased. If significant , may need to proceed with cysto with clot evacuation today or tomorrow (2) Urinary retention due to benign prostatic hyperplasia: Code(s): N40.1 - Benign prostatic hyperplasia with lower urinary tract symptoms; R33.8 - Other retention of urine Status: Acute Assessment and Plan: Has had indwelling Duron for 4 months. It appears that he has failed voiding trials in the past. May need to evaluate further with urodynamics as outpatient Subjective Subjective Date/Time Seen: 11/19/23 08:05 Principal diagnosis: Hematuria and urinary retention Interval history: Florencio was very frustrated and depressed regarding his situation and this hematuria. He states that this is 3rd admission for hematuria. He states that he has been at [facility] in the past and I will trying get those records. His CBI has been fairly clear but at this point does intermittent episodes of blood in it. Will obtain an ultrasound of his bladder to make sure there is no clots persistent. His hemoglobin has decreased slightly. If there is significant clots in the bladder he may need a cystoscopy this admission. Review of Systems Review of Systems: All systems reviewed & are unremarkable except as noted in HPI and below Exam Const: General: cooperative, comfortable and other (Frustrated with the hematuria) Resp: Effort & Inspection: normal respiratory effort Cardio: Rate: regular rate Rhythm: regular rhythm Objective Data Vital Signs Vital Signs: Vital Signs - 24 hr 11/18/23 09:30 11/18/23 13:52 11/18/23 20:15 Temperature 35.8 C L Pulse Rate 50 L 60 Respiratory Rate 16 18 Blood Pressure 108/57 L Pulse Oximetry 97 96 Oxygen Delivery Room Air 11/18/23 21:28 11/19/23 06:00 11/19/23 07:10 Temperature 36.6 C 37.1 C Pulse Rate 60 69 65 Respiratory Rate 18 20 18 Blood Pressure 105/71 131/66 Pulse Oximetry 100 100 95 Oxygen Delivery Room Air 11/19/23 07:10 Temperature Pulse Rate 65 Respiratory Rate 18 Blood Pressure Pulse Oximetry Oxygen Delivery Intake/Output Intake/Output: Intake & Output 11/16/23 11/17/23 11/18/23 01/24/24 23:59 23:59 23:59 23:59 Intake Total 1100 1266 550 Output Total 3400 3000 700 Balance -5324 -7714 -150 Meds/Results Medications: Active Medications Generic Name Dose Route Start Last Admin Trade Name Freq PRN Reason Stop Dose Admin Hydrocodone Bitart/Acetaminophen 1 tab 11/18/23 07:55 11/19/23 06:13 Hydrocodone/Acetaminophen (*Crx) 5-325 Mg Tablet PO 1 tab Q8H PRN Administration pain 4-6 Albuterol 1 puff 11/18/23 07:55 Albuterol Sulfate (*Sp) Aerosol 1 Puff INHALATION Q4H PRN shortness of breath or wheezing Alendronate Sodium 70 mg 11/24/23 06:30 Alendronate Sodium 70 Mg Tablet PO Mo@0630 [facility] Amlodipine Besylate 5 mg 11/18/23 09:00 11/18/23 09:30 Amlodipine Besylate 5 Mg Tablet PO 5 mg QAM TENISHA Administration Atorvastatin Calcium 80 mg 11/18/23 09:00 11/18/23 09:29 Atorvastatin 40 Mg Tablet PO 80 mg DAILY TENISHA Administration Bisacodyl 10 mg 11/18/23 07:55 Bisacodyl 10 Mg Suppository RECTAL DAILY PRN Constipation Calcium Carbonate 500 mg 11/18/23 09:00 11/18/23 17:49 Calcium/Vitamin D 500 Mg Tablet PO 500 mg BID TENISHA Administration Duloxetine HCl 60 mg 11/18/23 09:00 11/18/23 09:29 Duloxetine Hcl 60 Mg Capsule.Dr PO 60 mg DAILY TENISHA Administration Finasteride 5 mg 11/18/23 21:00 11/18/23 20:43 Finasteride 5 Mg Tablet PO 5 mg QHS TENISHA Administration Gabapentin 400 mg 11/18/23 09:00 11/18/23 17:49 Gabapentin 400 Mg Capsule PO 400 mg TID TENISHA Administration Hydroc
--- NOTE | 2023-11-19 08:18 | PM.IMPN ---
Progress Note: A&P Assessment and Plan (1) E. coli UTI: Code(s): N39.0 - Urinary tract infection, site not specified; B96.20 - Unspecified Escherichia coli [E. coli] as the cause of diseases classified elsewhere Status: Acute Assessment and Plan: Pansensitive E coli per previous urine culture. Patient is on Rocephin (2) Gross hematuria: Code(s): R31.0 - Gross hematuria Status: Acute Assessment and Plan: CBI running, clear yellow urine at this time, intermittent blood noted hemoglobin hematocrit have dropped. Ultrasound of bladder does not show obvious retained clot (3) Urinary retention due to benign prostatic hyperplasia: Code(s): N40.1 - Benign prostatic hyperplasia with lower urinary tract symptoms; R33.8 - Other retention of urine Status: Acute Assessment and Plan: See 2. (4) MARVIN (obstructive sleep apnea): Code(s): G47.33 - Obstructive sleep apnea (adult) (pediatric) Status: Acute Assessment and Plan: AutoPAP ordered (5) Acute on chronic anemia: Code(s): D64.9 - Anemia, unspecified Status: Acute Assessment and Plan: Will monitor daily, acute blood loss from hematuria and hematoma, avoid anticoagulants if possible (6) Gastroesophageal reflux disease: Qualifiers: Esophagitis presence: esophagitis presence not specified Qualified Code(s): K21.9 - Gastro-esophageal reflux disease without esophagitis Code(s): K21.9 - Gastro-esophageal reflux disease without esophagitis Status: Acute Assessment and Plan: Stable, continue home medications Time Spent With Patient Time with patient: 25 - 35 minutes Subjective Date/time seen: 11/19/23 08:18 Interval history: 11/18: Patient complaining of back pain right hip pain which have been chronic and hematuria which is relatively new. Urology has been consulted has seen the patient yet. He had CBI catheter placed but is on CBI. Patient denies nausea vomiting difficulty breathing fever chills or chest pain. 11/19: Today patient is very insistent that he gets surgery to stop the bleeding from his catheter. Patient has been CBI it has been mostly clear but intermittent bleeding is noted in his hemoglobin has dropped. He will remain on CBI and recheck labs in morning. Patient is very frustrated with having to have a catheter for 4 months now and he wants it out but knows he cannot urinate without catheter in place. Review of Systems Review of Systems: All systems reviewed & are unremarkable except as noted in HPI and below Exam Narrative: Weight 79 kg BMI 24.3 Const: Other: No acute distress, well-developed well-nourished HENMT: Other: Mucous membranes are tacky, no oral pharyngeal erythema, edentulous Eyes: Other: Equal and reactive, no scleral icterus evidence of prior cataract surgery, positive conjunctival pallor Neck: Other: No JVD, supple Resp: Other: Clear to auscultation bilaterally, no increased work of breathing Cardio: Other: Regular rate, regular rhythm, 2+ bilateral radial pedal pulses GI: Other: Soft, nontender, nondistended, positive bowel sounds : Other: Duron catheter in place with bright red tinged urine cloudy Skin: Other: Generalized pallor, non jaundice, cool to touch Neuro: Other: Alert oriented x4, speech is clear, no facial asymmetry, hard of hearing, decreased sensation to the feet Extrem: Other: 1+ pitting edema to ankles and feet bilaterally Psych: Other: Pleasant and cooperative, odd affect, appropriate mood, judgment insight intact Objective Data Vital Signs Vital Signs: Vital Signs - 24 hr 11/18/23 09:30 11/18/23 13:52 11/18/23 20:15 Temperature 35.8 C L Pulse Rate 50 L 60 Respiratory Rate 16 18 Blood Pressure 108/57 L Pulse Oximetry 97 96 Oxygen Delivery Room Air 11/18/23 21:28 11/19/23 06:00
[2023-11-19] MEDS: TAMSULOSIN HCL 0.4 MG CAPSULE 0.8 MG PO (09:38)
[2023-11-19] MEDS: ATORVASTATIN 40 MG TABLET 80 MG PO (09:39)
[2023-11-19] MEDS: amLODIPine BESYLATE 5 MG TABLET PO (09:39)
[2023-11-19] MEDS: DULoxetine HCL 60 MG CAPSULE.DR PO (09:39)
[2023-11-19] MEDS: GABAPENTIN 400 MG CAPSULE PO ×3 (09:39→17:51)
[2023-11-19] MEDS: polyethylene glycoL 3350 17 GM POWD.PACK PO (09:39)
[2023-11-19] MEDS: PANTOPRAZOLE 40 MG TABLET PO (09:39)
[2023-11-19 09:40] VITALS: O2SAT 97
[2023-11-19 13:55] VITALS: BP 131/59; PULSE 59; RESP 16; TEMP 36.1; O2SAT 100
[2023-11-19 20:00] VITALS: O2SAT 95
[2023-11-19 21:11] VITALS: BP 167/63; PULSE 67; RESP 18; TEMP 37; O2SAT 95
[2023-11-19] MEDS: FINASTERIDE 5 MG TABLET PO (21:17)
[2023-11-20] VITALS (9 sets, daily range): BP systolic 112–138; BP diastolic 62–77; PULSE 60–94; RESP 1–20; TEMP 36.3–37.4; O2SAT 94–98
[2023-11-20 06:57] LABS: Basophils Percent Auto 0.6 % (0.2-1.2); Eosinophils Absolute Auto 0.3 K/mm3 (0-0.3); Eosinophils Percent Auto 4.3 % (0-4.4); Hematocrit 25.8 % (42.0-52.0); Immature Granulocyte Absolute 0.01 K/mm3 (0.00-0.031); Immature Granulocyte Percent A 0.2 % (0-0.5); Lymphocytes Absolute Auto 2.67 K/mm3 (0.9-3.2); Lymphocytes Percent Auto 42.4 % (18.3-44.2); Mean Corpuscular Hemoglobin 25.7 pg (26-34); Mean Platelet Volume 9.9 fl (7.4-10.4); Monocytes Absolute Auto 0.5 K/mm3 (0.1-0.6); Monocytes Percent Auto 7.3 % (2.6-8.5); Neutrophils Absolute Auto 2.8 K/mm3 (1.3-6.7); Neutrophils Percent Auto 45.2 % (45.5-73.1); Platelet Count Result 143 k/mm3 (150-375); Red Blood Count 3.11 M/mm3 (4.6-6.20); Red Cell Distribution Width 17.4 % (11.5-14.5); White Blood Count 6.3 K/mm3 (4.5-10.0)
[2023-11-20 07:13] LABS: Alanine Aminotransferase 11 U/L (6-50); Albumin Level 2.7 g/dL (3.5-5.1); Alkaline Phosphatase 63 U/L (38-126); Anion Gap 2 mmol/L (8-16); Aspartate Amino Transferase 17 U/L (17-59); Bilirubin,Total 0.4 mg/dL (0.2-1.3); Blood Urea Nitrogen 19 mg/dL (9-20); Calcium 8.4 mg/dL (8.4-10.2); Carbon Dioxide 31 mmol/L (22-30); Chloride 101 mmol/L (98-107); Estimated CRCL calculation 46 ml/min; Estimated Glomerular Filt Rate 58; Glucose 91 mg/dL (65-110); Magnesium 1.8 mg/dL (1.6-2.3); Potassium 4.2 mmol/L (3.4-5.0); Sodium 134 mmol/L (137-145)
[2023-11-20] MEDS: UMECLIDINIUM BROMIDE 62.5 MCG ELLIPTA 1 PUFF INHALATION (07:58)
[2023-11-20] MEDS: FLUTICASONE/SALMETEROL 115-21 MCG INHALER 1 PUFF 2 PUFF INHALATION ×2 (07:58→19:48)
--- NOTE | 2023-11-20 09:00 | PC.NURSE ---
NPO for Cystoscopy. Morning medications held at this time.
[2023-11-20 09:01] LABS: Atypical Lymphocytes Present; Hypochromasia 1+ (NORMAL); Platelet Estimate Adequate (Adequate); Schistocytes Rare (NORMAL)
--- NOTE | 2023-11-20 11:47 | PC.NURSE ---
To OR per hospital bed.
[2023-11-20] MEDS: LACTATED RINGERS 1,000 ML 30 ML IV CONT (11:55)
--- NOTE | 2023-11-20 12:04 | WPDHPUPDATE1 ---
History and Physical Update Update Date/Time: 11/20/23 12:04 History and Physical has been reviewed, including an updated exam of the patient. There are NO changes in the patient's condition. Risks, benefits, and alternatives have been discussed and questions answered. Patient agrees to proceed with procedure. Proceed with cystoscopy with possible clot evacuation
--- NOTE | 2023-11-20 12:14 | WPDANESEPPF ---
Anes - Initial Pre Proc Eval Procedure: Operation Date: 11/20/23 12:30 Proposed Procedures p Cystoscopy, Possible Evacuation Bladder Clot - Gus Mejía MD Date/Time: 11/20/23 12:14 Surgeon: Salma Levine DO Pre Op Diagnosis: Urinary Retention Patient Data Age: 83 Gender: M Height: 1.83 m Weight: 84.8 kg Last Vital Signs Temp 37.4 C 11/20/23 11:52 Pulse 65 11/20/23 11:52 Resp 20 11/20/23 11:52 BP 122/77 11/20/23 11:52 Pulse Ox 97 11/20/23 11:52 O2 Del Method Room Air 11/20/23 11:52 Allergies Allergy/AdvReac Type Severity Reaction Status Date / Time neomycin Allergy Unknown rash Verified 11/17/23 15:33 Sulfa (Sulfonamide Allergy Unknown Rash Verified 11/17/23 15:33 Antibiotics) castor oil AdvReac Intermediate Nausea and Verified 11/17/23 15:33 Vomiting erythromycin base AdvReac Intermediate SHAKING, Verified 11/17/23 15:33 HEADACHE Home Medications Medication Instructions Recorded Confirmed Type trospium 20 mg tablet 20 mg PO BID 08/20/21 11/17/23 History levothyroxine 100 mcg tablet 100 mcg PO DAILY #90 tabs 10/17/22 11/17/23 Rx alendronate 70 mg tablet 70 mg PO WEEKLY 06/03/23 11/17/23 History bisacodyl 10 mg rectal suppository 10 mg RECTAL DAILY PRN Constipation 06/03/23 11/17/23 History (Dulcolax (bisacodyl)) budesonide-formoterol HFA 160 2 puff inhalation Q12H 06/03/23 11/17/23 History mcg-4.5 mcg/actuation aerosol inhaler food supplemt, lactose-reduced 1 ea PO DAILY #5,688 mL 06/03/23 11/17/23 Rx (Ensure oral liquid) gabapentin 400 mg capsule 400 mg PO TID 06/03/23 11/17/23 History ondansetron 4 mg disintegrating 4 mg PO Q8H 06/03/23 11/17/23 History tablet sennosides 8.6 mg tablet 8.6 mg PO DAILY PRN constipation 06/03/23 11/17/23 History tiotropium bromide 2.5 2 puff inhalation DAILY 06/03/23 11/17/23 History mcg/actuation mist for inhalation amlodipine 5 mg tablet 5 mg PO QAM #90 tabs 06/27/23 11/17/23 Rx atorvastatin 80 mg tablet 80 mg PO DAILY #90 tabs 06/27/23 11/17/23 Rx finasteride 5 mg tablet 5 mg PO QHS #90 tabs 06/27/23 11/17/23 Rx pantoprazole 40 mg tablet,delayed 40 mg PO QAM #90 tabs 06/27/23 11/17/23 Rx release (Protonix) tamsulosin 0.4 mg capsule 0.8 mg PO DAILY #180 caps 06/27/23 11/17/23 Rx hydrocortisone 2.5 % topical cream 1 applic topical BID PRN rash #28 07/02/23 11/17/23 Rx grams calcium carbonate 500 mg-vitamin 1 tablet PO BID #60 tabs 07/05/23 11/17/23 Rx D3 5 mcg (200 unit) tablet (Oyster Shell Calcium-Vitamin D3) hydrocodone 5 mg-acetaminophen 325 1 tablet PO Q8H PRN pain #60 tabs 08/12/23 11/17/23 Rx mg tablet diclofenac sodium 1 % topical gel See Rx Instructions .Route 08/15/23 11/17/23 Rx .COMPLEX #100 grams albuterol sulfate 90 mcg/actuation 1 puff inhalation Q4H PRN 08/18/23 11/17/23 Rx aerosol inhaler shortness of breath or wheezing #8.5 grams duloxetine 60 mg capsule,delayed 60 mg PO DAILY #30 caps 08/18/23 11/17/23 Rx release lidocaine 5 % topical patch 1 patch topical DAILY #15 ea 08/30/23 11/17/23 Rx (Lidoderm) cefuroxime axetil 500 mg tablet 500 mg PO BID 8 days #16 tabs 11/15/23 11/17/23 Rx Laboratory Tests 11/20/23 06:31 WBC 6.3 K/mm3 (4.5-10.0) RBC 3.11 L M/mm3 (4.6-6.20) Hgb 8.0 L g/dL (14.0-18.0) Hct 25.8 L % (42.0-52.0) MCV 83.0 fl (80-100) MCH 25.7 L pg (26-34) MCHC 31.0 L g/dl (32-36) RDW 17.4 H % (11.5-14.5) Plt Count 143 L k/mm3 (150-375) MPV 9.9 fl (7.4-10.4) Immature Gran % (Auto) 0.2 % (0-0.5) Neut % (Auto) 45.2 L % (45.5-73.1) Lymph % (Auto) 42.4 % (18.3-44.2) [place] % (Auto) 7.3 % (2.6-8.5) Eos % (Auto) 4.3 % (0-4.4) Baso % (Auto) 0.6 % (0.2-1.2) Lymph # (Auto) 2.67 K/mm3 (0.9-3.2) [place] # (Auto) 0.5 K/mm3 (0.1-0.6) Eos # (Auto) 0.3 K/mm3 (0-0.3) Baso # (Auto) 0.0 K/mm3 (0.0-0.1) Abs Immat Gran (auto) 0.01
[2023-11-20] MEDS: ceFAZolin SODIUM 1 GM VIAL 2 GM IV PUSH (12:48)
[2023-11-20] MEDS: LIDOCAINE HCL 2% GEL UROJET 10 ML PKG MUCOUS MEM (12:55)
--- NOTE | 2023-11-20 12:56 | W.PM.PROC2 ---
Procedure Note - Detailed Date of Procedure 11/20/23 Pre-op Diagnosis Urinary Retention, gross hematuria Post-op Diagnosis Same Procedure Performed Cystoscopy with complex Duron placement Surgeon Gus Mejía MD Anesthesia MAC and Local Description of Procedure Patient is taken the operative suite correctly identified. Once anesthesia was obtained the prior Duron was removed. He was prepped draped usual sterile fashion. Twenty-two [place] scope was inserted into the urethra after 2% viscous lidocaine was inserted. There were no urethral strictures. The prostate did not appear overly obstructive in nature. Upon entering the bladder there is 2 to 3+ trabeculation noted. There are no tumors or active bleeding. No clot noted at this time. The scope was removed. Eighteen [place]an coude was placed with 10 cc in the balloon. Will plan on Duron catheter removal in the morning for voiding trial. This completes dictation. Please send a copy to my office. Estimated Blood Loss 0 Urine Output 1,700 Drains Yes Packing No Pathology None sent Complications No immediate complications Condition Stable Disposition PACU
--- NOTE | 2023-11-20 12:59 | WPDUROPN2 ---
Progress Note: A&P Assessment and Plan (1) Urinary retention due to benign prostatic hyperplasia: Code(s): N40.1 - Benign prostatic hyperplasia with lower urinary tract symptoms; R33.8 - Other retention of urine Status: Acute Assessment and Plan: Will attempt a voiding trial again in the morning. (2) Hematuria: Code(s): R31.9 - Hematuria, unspecified Status: Acute Assessment and Plan: Appears to have resolved without any obvious findings on cystoscopy Subjective Subjective Date/Time Seen: 11/20/23 12:59 Principal diagnosis: Hematuria with urinary retention Interval history: Florencio was doing well at this time. It is unclear again why he has a Duron catheter of the and he has had repeatedly episodes of retention. His hematuria has resolved but given his repeated admissions will proceed with cysto today. Review of Systems Review of Systems: All systems reviewed & are unremarkable except as noted in HPI and below Exam Const: General: cooperative and comfortable Resp: Effort & Inspection: normal respiratory effort Cardio: Rate: regular rate Rhythm: regular rhythm Objective Data Vital Signs Vital Signs: Vital Signs - 24 hr 11/19/23 13:55 11/19/23 21:11 11/19/23 20:00 Temperature 36.1 C L 37.0 C Pulse Rate 59 L 67 Respiratory Rate 16 18 Blood Pressure 131/59 L 167/63 H Pulse Oximetry 100 95 95 Oxygen Delivery Room Air 11/20/23 06:00 11/20/23 07:58 11/20/23 08:00 Temperature 37.1 C Pulse Rate 61 Respiratory Rate 18 Blood Pressure 118/70 Pulse Oximetry 98 94 Oxygen Delivery Room Air Room Air 11/20/23 11:52 Temperature 37.4 C Pulse Rate 65 Respiratory Rate 20 Blood Pressure 122/77 Pulse Oximetry 97 Oxygen Delivery Room Air Intake/Output Intake/Output: Intake & Output 11/17/23 11/18/23 11/19/23 11/20/23 23:59 23:59 23:59 23:59 Intake Total 1100 1266 1648 0 Output Total 3400 3000 2450 1700 Balance -2300 -1734 -802 -1700 Meds/Results Medications: Active Medications Generic Name Dose Route Start Last Admin Trade Name Freq PRN Reason Stop Dose Admin Hydrocodone Bitart/Acetaminophen 1 tab 11/18/23 07:55 11/19/23 21:21 Hydrocodone/Acetaminophen (*Crx) 5-325 Mg Tablet PO 1 tab Q8H PRN Administration pain 4-6 Albuterol 1 puff 11/18/23 07:55 Albuterol Sulfate (*Sp) Aerosol 1 Puff INHALATION Q4H PRN shortness of breath or wheezing Alendronate Sodium 70 mg 11/24/23 06:30 Alendronate Sodium 70 Mg Tablet PO Mo@0630 [facility] Amlodipine Besylate 5 mg 11/18/23 09:00 11/19/23 09:39 Amlodipine Besylate 5 Mg Tablet PO 5 mg QAM TENISHA Administration Atorvastatin Calcium 80 mg 11/18/23 09:00 11/19/23 09:39 Atorvastatin 40 Mg Tablet PO 80 mg DAILY TENISHA Administration Bisacodyl 10 mg 11/18/23 07:55 Bisacodyl 10 Mg Suppository RECTAL DAILY PRN Constipation Calcium Carbonate 500 mg 11/18/23 09:00 11/19/23 17:51 Calcium/Vitamin D 500 Mg Tablet PO 500 mg BID [facility] Administration Duloxetine HCl 60 mg 11/18/23 09:00 11/19/23 09:39 Duloxetine Hcl 60 Mg Capsule.Dr PO 60 mg DAILY [facility] Administration Fentanyl Citrate 25 mcg 11/20/23 12:21 Fentanyl Citrate Inj (*Crx) 100 Mcg/2 Ml Vial IV PUSH Q2M PRN Pain Finasteride 5 mg 11/18/23 21:00 11/19/23 21:17 Finasteride 5 Mg Tablet PO 5 mg QHS [facility] Administration Gabapentin 400 mg 11/18/23 09:00 11/19/23 17:51 Gabapentin 400 Mg Capsule PO 400 mg TID [facility] Administration Hydrocortisone 1 applic 11/18/23 07:55 Hydrocortisone 2.5% Cream 30 Gm Tube TOPICAL BID PRN rash Lactated Ringer's 1,000 mls @ 30 mls/hr 11/20/23 12:25 11/20/23 11:55 Lr - Lactated Ringers Iv IV CONT 30 mls/hr .Q24H TENISHA Administration Lactated Ringer's 1,000 mls @ 30 mls/hr 11/20/23 12:25 Lr - Lactated Ringers Iv IV CONT .Q24H [facility] Levothyroxine Sodium 100 mcg 11/18/23
--- NOTE | 2023-11-20 13:38 | PC.NURSE ---
Returned from OR per hospital bed.
--- NOTE | 2023-11-20 13:45 | PM.IMPN ---
Progress Note: A&P Assessment and Plan (1) E. coli UTI: Code(s): N39.0 - Urinary tract infection, site not specified; B96.20 - Unspecified Escherichia coli [E. coli] as the cause of diseases classified elsewhere Status: Acute (2) Gross hematuria: Code(s): R31.0 - Gross hematuria Status: Acute (3) Urinary retention due to benign prostatic hyperplasia: Code(s): N40.1 - Benign prostatic hyperplasia with lower urinary tract symptoms; R33.8 - Other retention of urine Status: Acute (4) MARVIN (obstructive sleep apnea): Code(s): G47.33 - Obstructive sleep apnea (adult) (pediatric) Status: Acute (5) Acute on chronic anemia: Code(s): D64.9 - Anemia, unspecified Status: Acute (6) Gastroesophageal reflux disease: Qualifiers: Esophagitis presence: esophagitis presence not specified Qualified Code(s): K21.9 - Gastro-esophageal reflux disease without esophagitis Code(s): K21.9 - Gastro-esophageal reflux disease without esophagitis Status: Acute Plan BPH/Urinary retention/Hematuria -CBI running clear now -Urology consulted -cysto 11/20/2023 -F/U bladder trails 11/21/2023 -H&H stable -Resumed Proscar UTI -ECOLI 11/15/2023 -Macrobid BID -F/U 11/17 clean A/C anemia -Iron panel pending -daily H&H -transfuse Hgb <7.0 Code status: Full code per patient DVT prophylaxis: SCD's Stress ulcer prophylaxis: Protonix 40 BID PT/OT notes: PT/OT pending patient to return to rehab Disposition: Patient underwent cysto today with Urology, attempt bladder trials in the am. Patient to return to SNF/REHAB center at discharge. -Patient's previous records reviewed on admission -ER notes reviewed in detail on admission -discussed all findings and current treatment plan with patient/Family/POA -Consultations reviewed for recommendations -Patient's disposition for safe discharge discussed with family independence case manager Dictation performed by [employer] direct speech recognition software, therefore lawn care specialist variants and typographical errors may occur. Subjective Date/time seen: 11/20/23 13:45 Interval history: 11/18: Patient complaining of back pain right hip pain which have been chronic and hematuria which is relatively new. Urology has been consulted has seen the patient yet. He had CBI catheter placed but is on CBI. Patient denies nausea vomiting difficulty breathing fever chills or chest pain. 11/19: Today patient is very insistent that he gets surgery to stop the bleeding from his catheter. Patient has been CBI it has been mostly clear but intermittent bleeding is noted in his hemoglobin has dropped. He will remain on CBI and recheck labs in morning. Patient is very frustrated with having to have a catheter for 4 months now and he wants it out but knows he cannot urinate without catheter in place. 11/20/2023: Patient in no acute distress urine clear with CBI no further clots noted. Urology to proceed with cysto today for further evaluation due to reoccurrences. Plan for bladder trials tomorrow 11/21/2023. Review of Systems Review of Systems: All systems reviewed & are unremarkable except as noted in HPI and below Exam Narrative: Physical Exam: - GENERAL: Alert and oriented x 3. No acute distress. Well-nourished. - EYES: EOMI. No scleral icterus. PERRLA. - HEENT: Moist mucous membranes. No cervical lymphadenopathy. - LUNGS: Clear to auscultation bilaterally. No accessory muscle use. - CARDIOVASCULAR: Regular rate and rhythm. No murmur. No JVD. S1-S2 - ABDOMEN: Soft, non-tender and non-distended. No palpable masses. -: Duron catheter no swelling - EXTREMITIES: No edema. Non-tender -SKIN: No rashes or lesions. Skin warm, dry. - NEUROLOGIC: No focal neurological deficits. CN II-XII grossly intact - PSYCHIATRIC: Appropriate mood and affect. Good judgement and insight. No visual or auditory hallucinations. No suicidal or
[2023-11-20] MEDS: DULoxetine HCL 60 MG CAPSULE.DR PO (14:38)
[2023-11-20] MEDS: amLODIPine BESYLATE 5 MG TABLET PO (14:38)
[2023-11-20] MEDS: ATORVASTATIN 40 MG TABLET 80 MG PO (14:39)
[2023-11-20] MEDS: GABAPENTIN 400 MG CAPSULE PO ×2 (14:39→16:16)
[2023-11-20] MEDS: polyethylene glycoL 3350 17 GM POWD.PACK PO (14:39)
[2023-11-20] MEDS: ONDANSETRON HCL ODT 4 MG TABLET PO ×2 (14:39→21:34)
[2023-11-20] MEDS: TAMSULOSIN HCL 0.4 MG CAPSULE 0.8 MG PO (14:39)
[2023-11-20] MEDS: PANTOPRAZOLE 40 MG TABLET PO (14:40)
[2023-11-20] MEDS: HYDROcodone/acetaminophen (*CRX) 5-325 MG TABLET 1 TAB PO (17:46)
[2023-11-20] MEDS: NITROFURANTOIN MONOHYD MACROCR 100 MG CAP PO (21:34)
[2023-11-20] MEDS: FINASTERIDE 5 MG TABLET PO (21:34)
[2023-11-21] MEDS: ONDANSETRON HCL ODT 4 MG TABLET PO ×3 (05:15→20:47)
[2023-11-21] MEDS: LEVOTHYROXINE SODIUM 100 MCG TABLET PO (05:15)
[2023-11-21] MEDS: HYDROcodone/acetaminophen (*CRX) 5-325 MG TABLET 1 TAB PO ×2 (05:15→20:48)
[2023-11-21 05:48] VITALS: BP 121/63; PULSE 63; RESP 16; TEMP 37; O2SAT 95
[2023-11-21 06:46] LABS: Basophils Percent Auto 0.5 % (0.2-1.2); Eosinophils Absolute Auto 0.3 K/mm3 (0-0.3); Hemoglobin 8.4 g/dL (14.0-18.0); Immature Granulocyte Absolute 0.02 K/mm3 (0.00-0.031); Immature Granulocyte Percent A 0.3 % (0-0.5); Lymphocytes Absolute Auto 2.74 K/mm3 (0.9-3.2); Lymphocytes Percent Auto 36.5 % (18.3-44.2); Mean Corpuscular HGB Conc 31.1 g/dl (32-36); Mean Corpuscular Hemoglobin 25.8 pg (26-34); Mean Corpuscular Volume 83.1 fl (80-100); Mean Platelet Volume 10.6 fl (7.4-10.4); Monocytes Absolute Auto 0.6 K/mm3 (0.1-0.6); Monocytes Percent Auto 7.3 % (2.6-8.5); Neutrophils Absolute Auto 3.9 K/mm3 (1.3-6.7); Neutrophils Percent Auto 51.4 % (45.5-73.1); Platelet Count Result 142 k/mm3 (150-375); Red Blood Count 3.25 M/mm3 (4.6-6.20); Red Cell Distribution Width 17.3 % (11.5-14.5); White Blood Count 7.5 K/mm3 (4.5-10.0)
[2023-11-21 07:07] LABS: Alanine Aminotransferase 11 U/L (6-50); Albumin Level 2.9 g/dL (3.5-5.1); Alkaline Phosphatase 68 U/L (38-126); Anion Gap 4 mmol/L (8-16); Aspartate Amino Transferase 16 U/L (17-59); Bilirubin,Total 0.7 mg/dL (0.2-1.3); Blood Urea Nitrogen 16 mg/dL (9-20); Calcium 8.4 mg/dL (8.4-10.2); Carbon Dioxide 29 mmol/L (22-30); Chloride 98 mmol/L (98-107); Estimated CRCL calculation 54 ml/min; Estimated Glomerular Filt Rate > 60; Glucose 97 mg/dL (65-110); Magnesium 1.7 mg/dL (1.6-2.3); Potassium 4.2 mmol/L (3.4-5.0); Sodium 131 mmol/L (137-145)
[2023-11-21 08:00] LABS: Anisocytosis 1+ (NORMAL); Ovalocytes 1+ (NORMAL); Schistocytes Rare (NORMAL)
[2023-11-21] MEDS: PANTOPRAZOLE 40 MG TABLET PO (08:30)
[2023-11-21] MEDS: polyethylene glycoL 3350 17 GM POWD.PACK PO (08:30)
[2023-11-21] MEDS: TAMSULOSIN HCL 0.4 MG CAPSULE 0.8 MG PO (08:30)
[2023-11-21] MEDS: DULoxetine HCL 60 MG CAPSULE.DR PO (08:30)
[2023-11-21] MEDS: amLODIPine BESYLATE 5 MG TABLET PO (08:30)
[2023-11-21] MEDS: NITROFURANTOIN MONOHYD MACROCR 100 MG CAP PO ×2 (08:30→20:47)
[2023-11-21] MEDS: ATORVASTATIN 40 MG TABLET 80 MG PO (08:31)
[2023-11-21] MEDS: SENNOSIDES 8.6 MG TABLET PO (08:31)
[2023-11-21] MEDS: GABAPENTIN 400 MG CAPSULE PO ×3 (08:31→16:20)
[2023-11-21] MEDS: FLUTICASONE/SALMETEROL 115-21 MCG INHALER 1 PUFF 2 PUFF INHALATION ×2 (08:54→21:10)
[2023-11-21] MEDS: UMECLIDINIUM BROMIDE 62.5 MCG ELLIPTA 1 PUFF INHALATION (08:54)
--- NOTE | 2023-11-21 11:52 | PM.IMPN ---
Progress Note: A&P Assessment and Plan (1) E. coli UTI: Code(s): N39.0 - Urinary tract infection, site not specified; B96.20 - Unspecified Escherichia coli [E. coli] as the cause of diseases classified elsewhere Status: Acute (2) Gross hematuria: Code(s): R31.0 - Gross hematuria Status: Acute (3) Urinary retention due to benign prostatic hyperplasia: Code(s): N40.1 - Benign prostatic hyperplasia with lower urinary tract symptoms; R33.8 - Other retention of urine Status: Acute (4) MARVIN (obstructive sleep apnea): Code(s): G47.33 - Obstructive sleep apnea (adult) (pediatric) Status: Acute (5) Acute on chronic anemia: Code(s): D64.9 - Anemia, unspecified Status: Acute (6) Gastroesophageal reflux disease: Qualifiers: Esophagitis presence: esophagitis presence not specified Qualified Code(s): K21.9 - Gastro-esophageal reflux disease without esophagitis Code(s): K21.9 - Gastro-esophageal reflux disease without esophagitis Status: Acute Plan BPH/Urinary retention/Hematuria -Catheter removed waiting on void/bladder trial -Urology consulted -cysto 11/20/2023 -H&H stable -Resumed Proscar UTI -ECOLI 11/15/2023 -Macrobid BID -F/U 11/17 clean A/C anemia -Iron panel shows iron deficiency -Ferrous sulfate added -daily H&H -transfuse Hgb <7.0 Code status: Full code per patient DVT prophylaxis: SCD's Stress ulcer prophylaxis: Protonix 40 BID PT/OT notes: PT/OT pending patient to return to rehab Disposition: Patient undergoing bladder trials if unable to void will need indwelling catheter replaced, urology following patient can return to SNF when medically stable. -Patient's previous records reviewed on admission -ER notes reviewed in detail on admission -discussed all findings and current treatment plan with patient/Family/POA -Consultations reviewed for recommendations -Patient's disposition for safe discharge discussed with case mgr Dictation performed by [employer] direct speech recognition software, therefore robotic machine tender production variants and typographical errors may occur. Time Spent With Patient Time with patient: less than 15 minutes Subjective Date/time seen: 11/21/23 11:52 Interval history: 11/18: Patient complaining of back pain right hip pain which have been chronic and hematuria which is relatively new. Urology has been consulted has seen the patient yet. He had CBI catheter placed but is on CBI. Patient denies nausea vomiting difficulty breathing fever chills or chest pain. 11/19: Today patient is very insistent that he gets surgery to stop the bleeding from his catheter. Patient has been CBI it has been mostly clear but intermittent bleeding is noted in his hemoglobin has dropped. He will remain on CBI and recheck labs in morning. Patient is very frustrated with having to have a catheter for 4 months now and he wants it out but knows he cannot urinate without catheter in place. 11/20/2023: Patient in no acute distress urine clear with CBI no further clots noted. Urology to proceed with cysto today for further evaluation due to reoccurrences. Plan for bladder trials tomorrow 11/21/2023. 11/21: Patient in bed, strauss catheter was pulled currently waiting on patient to void. Patient to return to [facility] pending bladder trials. Review of Systems Review of Systems: All systems reviewed & are unremarkable except as noted in HPI and below Exam Narrative: Physical Exam: - GENERAL: Alert and oriented x 3. No acute distress. Well-nourished. - EYES: EOMI. No scleral icterus. PERRLA. - HEENT: Moist mucous membranes. No cervical lymphadenopathy. - LUNGS: Clear to auscultation bilaterally. No accessory muscle use. - CARDIOVASCULAR: Regular rate and rhythm. No murmur. No JVD. S1-S2 - ABDOMEN: Soft, non-tender and non-distended. No palpable masses. -: Strauss catheter no swelling - EXT
--- NOTE | 2023-11-21 12:49 | WPDUROPN2 ---
Progress Note: A&P Assessment and Plan (1) Urinary retention due to benign prostatic hyperplasia: Code(s): N40.1 - Benign prostatic hyperplasia with lower urinary tract symptoms; R33.8 - Other retention of urine Status: Acute Assessment and Plan: Voiding trial today. (2) Hematuria: Code(s): R31.9 - Hematuria, unspecified Status: Acute Assessment and Plan: resolved Subjective Subjective Date/Time Seen: 11/21/23 12:49 Principal diagnosis: Hematuria with urinary retention Interval history: 11/18: Patient complaining of back pain right hip pain which have been chronic and hematuria which is relatively new. Urology has been consulted has seen the patient yet. He had CBI catheter placed but is on CBI. Patient denies nausea vomiting difficulty breathing fever chills or chest pain. 11/19: Today patient is very insistent that he gets surgery to stop the bleeding from his catheter. Patient has been CBI it has been mostly clear but intermittent bleeding is noted in his hemoglobin has dropped. He will remain on CBI and recheck labs in morning. Patient is very frustrated with having to have a catheter for 4 months now and he wants it out but knows he cannot urinate without catheter in place. 11/20/2023: Patient in no acute distress urine clear with CBI no further clots noted. Urology to proceed with cysto today for further evaluation due to reoccurrences. Plan for bladder trials tomorrow 11/21/2023. 11/21: Patient in bed, strauss catheter was pulled currently waiting on patient to void. Patient to return to [facility] pending bladder trials. 11-21-23 Doing well post op with clear urine. Will attempt voiding trial today Review of Systems Review of Systems: All systems reviewed & are unremarkable except as noted in HPI and below Exam Const: General: cooperative, comfortable, no acute distress and other (Frustrated with the hematuria) Resp: Effort & Inspection: normal respiratory effort Cardio: Rate: regular rate Rhythm: regular rhythm Urinary Catheter: Urinary Catheter: patent and draining, urine dark and urine red Objective Data Vital Signs Vital Signs: Vital Signs - 24 hr 11/20/23 13:02 11/20/23 13:15 11/20/23 13:30 Temperature 36.3 C L Pulse Rate 66 63 60 Respiratory Rate 12 19 12 Blood Pressure 112/62 133/67 138/69 Pulse Oximetry 96 97 98 Oxygen Delivery Room Air Room Air Room Air 11/20/23 19:48 11/20/23 19:48 11/20/23 21:43 Temperature 37.1 C Pulse Rate 64 94 65 Respiratory Rate 1 L 14 Blood Pressure 119/69 Pulse Oximetry 96 96 Oxygen Delivery Room Air 11/20/23 20:00 11/21/23 05:48 11/21/23 08:00 Temperature 37.0 C Pulse Rate 63 Respiratory Rate 16 Blood Pressure 121/63 Pulse Oximetry 96 95 Oxygen Delivery Room Air Room Air Intake/Output Intake/Output: Intake & Output 11/18/23 11/19/23 11/20/23 11/21/23 23:59 23:59 23:59 23:59 Intake Total 1266 1648 1860 3910 Output Total 3000 2450 4300 2400 Balance -1734 -802 -7460 1510 Meds/Results Medications: Active Medications Generic Name Dose Route Start Last Admin Trade Name Freq PRN Reason Stop Dose Admin Hydrocodone Bitart/Acetaminophen 1 tab 11/18/23 07:55 11/21/23 05:15 Hydrocodone/Acetaminophen (*Crx) 5-325 Mg Tablet PO 1 tab Q8H PRN Administration pain 4-6 Albuterol 1 puff 11/18/23 07:55 Albuterol Sulfate (*Sp) Aerosol 1 Puff INHALATION Q4H PRN shortness of breath or wheezing Alendronate Sodium 70 mg 11/24/23 06:30 Alendronate Sodium 70 Mg Tablet PO Mo@0630 TENISHA Amlodipine Besylate 5 mg 11/18/23 09:00 11/21/23 08:30 Amlodipine Besylate 5 Mg Tablet PO 5 mg QAM TENISHA Administration Atorvastatin Calcium 80 mg 11/18/23 09:00 11/21/23 08:31 Atorvastatin 40 Mg Tablet PO 80 mg DAILY TENISHA Administration Bisacodyl 10 mg 11/18/23 07:55 Bisacodyl 10 Mg Suppository RECTAL DAILY PRN Constipation
[2023-11-21 14:30] VITALS: BP 152/69; PULSE 66; RESP 12; TEMP 36.6; O2SAT 98
[2023-11-21] MEDS: FERROUS SULFATE 325 MG TABLET DR PO (16:20)
[2023-11-21 20:00] VITALS: O2SAT 98
[2023-11-21] MEDS: FINASTERIDE 5 MG TABLET PO (20:47)
[2023-11-21 21:10] VITALS: O2SAT 98
[2023-11-21 22:00] VITALS: BP 112/48; PULSE 73; RESP 16; TEMP 36.6; O2SAT 98
[2023-11-22] VITALS (7 sets, daily range): BP systolic 109–126; BP diastolic 46–93; PULSE 58–67; RESP 14–20; TEMP 36.3–36.6; O2SAT 95–97
[2023-11-22] MEDS: ONDANSETRON HCL ODT 4 MG TABLET PO (05:49)
[2023-11-22] MEDS: LEVOTHYROXINE SODIUM 100 MCG TABLET PO (05:49)
[2023-11-22 06:26] LABS: Basophils Percent Auto 0.5 % (0.2-1.2); Eosinophils Absolute Auto 0.3 K/mm3 (0-0.3); Eosinophils Percent Auto 5.7 % (0-4.4); Hematocrit 26.6 % (42.0-52.0); Hemoglobin 8.3 g/dL (14.0-18.0); Immature Granulocyte Absolute 0.02 K/mm3 (0.00-0.031); Immature Granulocyte Percent A 0.4 % (0-0.5); Lymphocytes Percent Auto 44.6 % (18.3-44.2); Mean Corpuscular HGB Conc 31.2 g/dl (32-36); Mean Corpuscular Hemoglobin 25.6 pg (26-34); Mean Corpuscular Volume 82.1 fl (80-100); Mean Platelet Volume 9.9 fl (7.4-10.4); Monocytes Absolute Auto 0.5 K/mm3 (0.1-0.6); Neutrophils Absolute Auto 2.3 K/mm3 (1.3-6.7); Neutrophils Percent Auto 40.8 % (45.5-73.1); Platelet Count Result 146 k/mm3 (150-375); Red Blood Count 3.24 M/mm3 (4.6-6.20); Red Cell Distribution Width 17.4 % (11.5-14.5); White Blood Count 5.6 K/mm3 (4.5-10.0)
[2023-11-22 06:47] LABS: Alanine Aminotransferase 10 U/L (6-50); Albumin Level 2.9 g/dL (3.5-5.1); Alkaline Phosphatase 72 U/L (38-126); Anion Gap 2 mmol/L (8-16); Aspartate Amino Transferase 16 U/L (17-59); Bilirubin,Total 0.5 mg/dL (0.2-1.3); Blood Urea Nitrogen 18 mg/dL (9-20); Calcium 8.5 mg/dL (8.4-10.2); Carbon Dioxide 31 mmol/L (22-30); Chloride 100 mmol/L (98-107); Estimated CRCL calculation 50 ml/min; Estimated Glomerular Filt Rate > 60; Glucose 100 mg/dL (65-110); Magnesium 1.9 mg/dL (1.6-2.3); Potassium 4.1 mmol/L (3.4-5.0); Sodium 133 mmol/L (137-145)
[2023-11-22 07:16] LABS: Anisocytosis 1+ (NORMAL); Hypochromasia 1+ (NORMAL); Schistocytes Rare (NORMAL)
[2023-11-22] MEDS: FLUTICASONE/SALMETEROL 115-21 MCG INHALER 1 PUFF 2 PUFF INHALATION (08:42)
[2023-11-22] MEDS: UMECLIDINIUM BROMIDE 62.5 MCG ELLIPTA 1 PUFF INHALATION (08:42)
[2023-11-22] MEDS: GABAPENTIN 300 MG CAPSULE PO ×3 (09:23→16:36)
[2023-11-22] MEDS: ASPIRIN 81 MG CHEWABLE TABLET PO (09:24)
[2023-11-22] MEDS: HYDROcodone/acetaminophen (*CRX) 5-325 MG TABLET 1 TAB PO ×3 (09:24→22:09)
[2023-11-22] MEDS: BENZONATATE 100 MG CAPSULE 200 MG PO ×3 (09:25→16:36)
[2023-11-22] MEDS: SENNA/DOCUSATE SODIUM TABLET 1 TAB PO ×2 (09:25→16:36)
[2023-11-22] MEDS: oxyBUTYnin CHLORIDE XL 5 MG TAB.ER.24 10 MG PO (09:25)
[2023-11-22] MEDS: SACCHAROMYCES BOULARDII 250 MG CAPSULE PO ×2 (09:26→16:36)
[2023-11-22] MEDS: carvediloL 3.125 MG TABLET PO ×2 (09:27→20:32)
[2023-11-22] MEDS: DULoxetine HCL 60 MG CAPSULE.DR PO (09:36)
[2023-11-22] MEDS: CARBIDOPA/LEVODOPA 25/250 MG TABLET 1 TABLET PO ×3 (09:36→16:36)
[2023-11-22] MEDS: BUDESONIDE 3 MG CAP.SR.24H PO (09:36)
[2023-11-22] MEDS: TAMSULOSIN HCL 0.4 MG CAPSULE 0.8 MG PO (09:37)
[2023-11-22] MEDS: FERROUS SULFATE 325 MG TABLET DR PO ×2 (09:38→16:36)
[2023-11-22] MEDS: NITROFURANTOIN MONOHYD MACROCR 100 MG CAP PO ×2 (09:38→20:32)
[2023-11-22] MEDS: amLODIPine BESYLATE 5 MG TABLET PO (09:39)
[2023-11-22] MEDS: ARTIFICIAL TEARS OPHTH SOLN 15 ML BOTTLE 1 DROP EACH EYE (09:45)
[2023-11-22] MEDS: FUROSEMIDE 20 MG TABLET PO (10:02)
[2023-11-22] MEDS: polyethylene glycoL 3350 17 GM POWD.PACK PO (10:02)
[2023-11-22] MEDS: PANTOPRAZOLE 40 MG TABLET PO (12:41)
--- NOTE | 2023-11-22 13:32 | PM.IMPN ---
Progress Note: A&P Assessment and Plan (1) E. coli UTI: Code(s): N39.0 - Urinary tract infection, site not specified; B96.20 - Unspecified Escherichia coli [E. coli] as the cause of diseases classified elsewhere Status: Acute (2) Gross hematuria: Code(s): R31.0 - Gross hematuria Status: Acute (3) Urinary retention due to benign prostatic hyperplasia: Code(s): N40.1 - Benign prostatic hyperplasia with lower urinary tract symptoms; R33.8 - Other retention of urine Status: Acute (4) AMRVIN (obstructive sleep apnea): Code(s): G47.33 - Obstructive sleep apnea (adult) (pediatric) Status: Acute (5) Acute on chronic anemia: Code(s): D64.9 - Anemia, unspecified Status: Acute (6) Gastroesophageal reflux disease: Qualifiers: Esophagitis presence: esophagitis presence not specified Qualified Code(s): K21.9 - Gastro-esophageal reflux disease without esophagitis Code(s): K21.9 - Gastro-esophageal reflux disease without esophagitis Status: Acute Plan BPH/Urinary retention/Hematuria -Failed bladder trial 11/21 indwelling catheter re-inserted -Urology consulted -cysto 11/20/2023 -H&H stable -Resumed Proscar UTI -ECOLI 11/15/2023 -Macrobid BID -F/U 11/17 clean A/C anemia -Iron panel shows iron deficiency -Ferrous sulfate added -daily H&H -transfuse Hgb <7.0 Code status: Full code per patient DVT prophylaxis: SCD's Stress ulcer prophylaxis: Protonix 40 BID PT/OT notes: PT/OT pending patient to return to rehab Disposition: Patient undergoing bladder trials unable to void will need indwelling catheter replaced, urology following patient can return to SNF when medically stable. -Patient's previous records reviewed on admission -ER notes reviewed in detail on admission -discussed all findings and current treatment plan with patient/Family/POA -Consultations reviewed for recommendations -Patient's disposition for safe discharge discussed with insurance case manager Dictation performed by [employer] direct speech recognition software, therefore medical scientific officer variants and typographical errors may occur. Subjective Date/time seen: 11/22/23 13:32 Interval history: 11/18: Patient complaining of back pain right hip pain which have been chronic and hematuria which is relatively new. Urology has been consulted has seen the patient yet. He had CBI catheter placed but is on CBI. Patient denies nausea vomiting difficulty breathing fever chills or chest pain. 11/19: Today patient is very insistent that he gets surgery to stop the bleeding from his catheter. Patient has been CBI it has been mostly clear but intermittent bleeding is noted in his hemoglobin has dropped. He will remain on CBI and recheck labs in morning. Patient is very frustrated with having to have a catheter for 4 months now and he wants it out but knows he cannot urinate without catheter in place. 11/20/2023: Patient in no acute distress urine clear with CBI no further clots noted. Urology to proceed with cysto today for further evaluation due to reoccurrences. Plan for bladder trials tomorrow 11/21/2023. 11/21: Patient in bed, strauss catheter was pulled currently waiting on patient to void. Patient to return to [facility] pending bladder trials. 11/22: Patient was unable to void and strauss catheter was re-inserted. Patient tremulous patient home medication reconciled by RN will resume home medications takes carbidopa levodopa. Patient will likely need to continue with chronic indwelling catheter. Review of Systems Review of Systems: All systems reviewed & are unremarkable except as noted in HPI and below Exam Narrative: Physical Exam: - GENERAL: Alert and oriented x 3. No acute distress. Well-nourished. - EYES: EOMI. No scleral icterus. PERRLA. - HEENT: Moist mucous membranes. No cervical lymphadenopathy. - LUNGS: Clear to auscultation bilatera
[2023-11-22] MEDS: LIDOCAINE 5% PATCH 1 PATCH TRANSDERM (15:44)
[2023-11-22] MEDS: ATORVASTATIN 40 MG TABLET 80 MG PO (20:32)
[2023-11-22] MEDS: FINASTERIDE 5 MG TABLET PO (20:32)
[2023-11-22] MEDS: MELATONIN 3 MG TABLET PO (22:10)
[2023-11-23] MEDS: LEVOTHYROXINE SODIUM 100 MCG TABLET PO (05:39)
[2023-11-23] MEDS: HYDROcodone/acetaminophen (*CRX) 5-325 MG TABLET 1 TAB PO ×2 (05:39→17:07)
[2023-11-23 06:00] VITALS: BP 116/58; PULSE 56; RESP 14; TEMP 36.1; O2SAT 97
[2023-11-23 07:24] LABS: Basophils Percent Auto 0.4 % (0.2-1.2); Eosinophils Absolute Auto 0.3 K/mm3 (0-0.3); Eosinophils Percent Auto 4.2 % (0-4.4); Hematocrit 27.9 % (42.0-52.0); Hemoglobin 8.6 g/dL (14.0-18.0); Immature Granulocyte Absolute 0.03 K/mm3 (0.00-0.031); Immature Granulocyte Percent A 0.4 % (0-0.5); Lymphocytes Absolute Auto 2.42 K/mm3 (0.9-3.2); Lymphocytes Percent Auto 34.9 % (18.3-44.2); Mean Corpuscular HGB Conc 30.8 g/dl (32-36); Mean Corpuscular Hemoglobin 25.7 pg (26-34); Mean Corpuscular Volume 83.3 fl (80-100); Mean Platelet Volume 10.3 fl (7.4-10.4); Monocytes Absolute Auto 0.5 K/mm3 (0.1-0.6); Monocytes Percent Auto 7.6 % (2.6-8.5); Neutrophils Absolute Auto 3.6 K/mm3 (1.3-6.7); Neutrophils Percent Auto 52.5 % (45.5-73.1); Platelet Count Result 169 k/mm3 (150-375); Red Blood Count 3.35 M/mm3 (4.6-6.20); Red Cell Distribution Width 17.5 % (11.5-14.5); White Blood Count 6.9 K/mm3 (4.5-10.0)
[2023-11-23 07:35] LABS: Alanine Aminotransferase 7 U/L (6-50); Albumin Level 3.1 g/dL (3.5-5.1); Alkaline Phosphatase 69 U/L (38-126); Anion Gap 3 mmol/L (8-16); Aspartate Amino Transferase 17 U/L (17-59); Bilirubin,Total 0.5 mg/dL (0.2-1.3); Blood Urea Nitrogen 18 mg/dL (9-20); Calcium 8.5 mg/dL (8.4-10.2); Carbon Dioxide 33 mmol/L (22-30); Chloride 95 mmol/L (98-107); Estimated CRCL calculation 50 ml/min; Estimated Glomerular Filt Rate > 60; Glucose 120 mg/dL (65-110); Potassium 4.4 mmol/L (3.4-5.0); Sodium 131 mmol/L (137-145)
[2023-11-23 08:02] LABS: Anisocytosis 1+ (NORMAL); Hypochromasia 1+ (NORMAL); Large Platelets Present; Ovalocytes 1+ (NORMAL); Platelet Estimate Adequate (Adequate); Schistocytes None Seen (NORMAL)
[2023-11-23] MEDS: TAMSULOSIN HCL 0.4 MG CAPSULE 0.8 MG PO (09:07)
[2023-11-23] MEDS: polyethylene glycoL 3350 17 GM POWD.PACK PO (09:07)
[2023-11-23] MEDS: FERROUS SULFATE 325 MG TABLET DR PO ×2 (09:08→17:03)
[2023-11-23] MEDS: PANTOPRAZOLE 40 MG TABLET PO (09:08)
[2023-11-23] MEDS: BUDESONIDE 3 MG CAP.SR.24H PO (09:08)
[2023-11-23] MEDS: DULoxetine HCL 60 MG CAPSULE.DR PO (09:08)
[2023-11-23] MEDS: CARBIDOPA/LEVODOPA 25/250 MG TABLET 1 TABLET PO ×3 (09:08→17:03)
[2023-11-23] MEDS: oxyBUTYnin CHLORIDE XL 5 MG TAB.ER.24 10 MG PO (09:08)
[2023-11-23] MEDS: FUROSEMIDE 20 MG TABLET PO (09:09)
[2023-11-23] MEDS: SACCHAROMYCES BOULARDII 250 MG CAPSULE PO ×2 (09:09→17:03)
[2023-11-23] MEDS: ASPIRIN 81 MG CHEWABLE TABLET PO (09:09)
[2023-11-23] MEDS: BENZONATATE 100 MG CAPSULE 200 MG PO ×3 (09:09→17:04)
[2023-11-23] MEDS: amLODIPine BESYLATE 5 MG TABLET PO (09:09)
[2023-11-23] MEDS: SENNA/DOCUSATE SODIUM TABLET 1 TAB PO ×2 (09:09→17:03)
[2023-11-23] MEDS: NITROFURANTOIN MONOHYD MACROCR 100 MG CAP PO ×2 (09:09→21:18)
[2023-11-23] MEDS: GABAPENTIN 300 MG CAPSULE PO ×3 (09:09→17:03)
[2023-11-23 09:10] VITALS: BP 152/74; PULSE 57; O2SAT 99
[2023-11-23] MEDS: carvediloL 3.125 MG TABLET PO ×2 (09:10→21:18)
[2023-11-23] MEDS: UMECLIDINIUM BROMIDE 62.5 MCG ELLIPTA 1 PUFF INHALATION (10:18)
[2023-11-23 10:21] VITALS: O2SAT 99
--- NOTE | 2023-11-23 12:25 | PM.IMPN ---
Progress Note: A&P Assessment and Plan (1) E. coli UTI: Code(s): N39.0 - Urinary tract infection, site not specified; B96.20 - Unspecified Escherichia coli [E. coli] as the cause of diseases classified elsewhere Status: Acute (2) Gross hematuria: Code(s): R31.0 - Gross hematuria Status: Acute (3) Urinary retention due to benign prostatic hyperplasia: Code(s): N40.1 - Benign prostatic hyperplasia with lower urinary tract symptoms; R33.8 - Other retention of urine Status: Acute (4) MARVIN (obstructive sleep apnea): Code(s): G47.33 - Obstructive sleep apnea (adult) (pediatric) Status: Acute (5) Acute on chronic anemia: Code(s): D64.9 - Anemia, unspecified Status: Acute (6) Gastroesophageal reflux disease: Qualifiers: Esophagitis presence: esophagitis presence not specified Qualified Code(s): K21.9 - Gastro-esophageal reflux disease without esophagitis Code(s): K21.9 - Gastro-esophageal reflux disease without esophagitis Status: Acute Plan BPH/Urinary retention/Hematuria -Urology consulted -cysto 11/20/2023 -H&H stable -Resumed Proscar -Failed bladder trial 11/21 indwelling catheter re-inserted -2nd bladder trials UTI-RESOLVED -ECOLI 11/15/2023 -Macrobid BID -F/U 11/17 clean A/C anemia -Iron panel shows iron deficiency -Ferrous sulfate added -daily H&H -transfuse Hgb <7.0 Code status: Full code per patient DVT prophylaxis: SCD's Stress ulcer prophylaxis: Protonix 40 BID PT/OT notes: PT/OT pending patient to return to rehab Disposition: Patient undergoing bladder trials unable to void will need indwelling catheter replaced, urology following patient can return to SNF when medically stable. Will attempt bladder trial again. -Patient's previous records reviewed on admission -ER notes reviewed in detail on admission -discussed all findings and current treatment plan with patient/Family/POA -Consultations reviewed for recommendations -Patient's disposition for safe discharge discussed with case mgr Dictation performed by [employer] direct speech recognition software, therefore customer energy specialist variants and typographical errors may occur. Time Spent With Patient Time with patient: 15 - 25 minutes Subjective Date/time seen: 11/23/23 12:25 Interval history: 11/18: Patient complaining of back pain right hip pain which have been chronic and hematuria which is relatively new. Urology has been consulted has seen the patient yet. He had CBI catheter placed but is on CBI. Patient denies nausea vomiting difficulty breathing fever chills or chest pain. 11/19: Today patient is very insistent that he gets surgery to stop the bleeding from his catheter. Patient has been CBI it has been mostly clear but intermittent bleeding is noted in his hemoglobin has dropped. He will remain on CBI and recheck labs in morning. Patient is very frustrated with having to have a catheter for 4 months now and he wants it out but knows he cannot urinate without catheter in place. 11/20/2023: Patient in no acute distress urine clear with CBI no further clots noted. Urology to proceed with cysto today for further evaluation due to reoccurrences. Plan for bladder trials tomorrow 11/21/2023. 11/21: Patient in bed, strauss catheter was pulled currently waiting on patient to void. Patient to return to [facility] pending bladder trials. 11/22: Patient was unable to void and strauss catheter was re-inserted. Patient tremulous patient home medication reconciled by RN will resume home medications takes carbidopa levodopa. Patient will likely need to continue with chronic indwelling catheter. 11/23: Patient seen on bedside commode patient reporting constipation bowel regiment. Patient failed first bladder trial will attempt bladder trials again Review of Systems Review of Systems: All systems reviewed & are unremarkable excep
--- NOTE | 2023-11-23 13:29 | WPDUROPN2 ---
Progress Note: A&P Assessment and Plan (1) Urinary retention: Code(s): R33.9 - Retention of urine, unspecified Status: Acute (2) Hematuria: Code(s): R31.9 - Hematuria, unspecified Status: Acute Plan Patient will keep current strauss and anticipate another voiding trial in near future Will discuss with Dr Mejía Subjective Subjective Date/Time Seen: 11/23/23 13:29 Interval history: Patient failed voiding trial yesterday and strauss reinserted. Exam Narrative: NAD NCAT Breathing unlabored Strauss draining clear urine Objective Data Vital Signs Vital Signs: Vital Signs - 24 hr 11/22/23 14:00 11/22/23 19:26 11/22/23 20:32 Temperature 36.6 C Pulse Rate 58 L 63 Respiratory Rate 16 Blood Pressure 112/46 L Pulse Oximetry 97 Oxygen Delivery Room Air 11/22/23 21:53 11/23/23 06:00 11/23/23 09:10 Temperature 36.3 C L 36.1 C L Pulse Rate 65 56 L 57 L Respiratory Rate 20 14 Blood Pressure 109/58 L 116/58 L Pulse Oximetry 97 97 Oxygen Delivery 11/23/23 10:21 11/23/23 09:10 11/23/23 09:10 Temperature Pulse Rate 57 L Respiratory Rate Blood Pressure 152/74 H Pulse Oximetry 99 99 Oxygen Delivery Room Air Room Air Intake/Output Intake/Output: Intake & Output 11/20/23 11/21/23 11/22/23 11/23/23 23:59 23:59 23:59 23:59 Intake Total 1860 4260 3400 840 Output Total 4300 3950 3625 1750 Balance -2440 508 -296 -200 Meds/Results Medications: Active Medications Generic Name Dose Route Start Last Admin Trade Name Freq PRN Reason Stop Dose Admin Hydrocodone Bitart/Acetaminophen 1 tab 11/18/23 07:55 11/23/23 05:39 Hydrocodone/Acetaminophen (*Crx) 5-325 Mg Tablet PO 1 tab Q8H PRN Administration pain 4-6 Albuterol 1 puff 11/18/23 07:55 Albuterol Sulfate (*Sp) Aerosol 1 Puff INHALATION Q4H PRN shortness of breath or wheezing Alendronate Sodium 70 mg 11/24/23 06:30 Alendronate Sodium 70 Mg Tablet PO Mo@0630 [facility] Amlodipine Besylate 5 mg 11/18/23 09:00 11/23/23 09:09 Amlodipine Besylate 5 Mg Tablet PO 5 mg QAM TENISHA Administration Artificial Tears 1 drop 11/22/23 08:26 11/22/23 09:45 Artificial Tears Ophth Soln 15 Ml Bottle EACH EYE 1 drop Q12H PRN Administration Dry Eyes Aspirin 81 mg 11/22/23 09:00 11/23/23 09:09 Aspirin 81 Mg Chewable Tablet PO 81 mg DAILY TENISHA Administration Atorvastatin Calcium 80 mg 11/22/23 21:00 11/22/23 20:32 Atorvastatin 40 Mg Tablet PO 80 mg 2100 TENISHA Administration Benzonatate 200 mg 11/22/23 09:00 11/23/23 12:33 Benzonatate 100 Mg Capsule PO 200 mg TID TENISHA Administration Bisacodyl 10 mg 11/18/23 07:55 Bisacodyl 10 Mg Suppository RECTAL DAILY PRN Constipation Budesonide 3 mg 11/22/23 09:00 11/23/23 09:08 Budesonide 3 Mg Cap.Sr.24h PO 3 mg DAILY TENISHA Administration Carbidopa/Levodopa 1 tablet 11/22/23 09:00 11/23/23 12:34 Carbidopa/Levodopa 25/250 Mg Tablet PO 1 tablet TID TENISHA Administration Carvedilol 3.125 mg 11/22/23 09:00 11/23/23 09:10 Carvedilol 3.125 Mg Tablet PO 3.125 mg Q12HR TENISHA Administration Duloxetine HCl 60 mg 11/18/23 09:00 11/23/23 09:08 Duloxetine Hcl 60 Mg Capsule.Dr PO 60 mg DAILY TENISHA Administration Ferrous Sulfate 325 mg 11/21/23 17:00 11/23/23 09:08 Ferrous Sulfate [address] PO 325 mg BID TENISHA Administration Finasteride 5 mg 11/18/23 21:00 11/22/23 20:32 Finasteride 5 Mg Tablet PO 5 mg QHS TENISHA Administration Furosemide 20 mg 11/22/23 09:00 11/23/23 09:09 Furosemide 20 Mg Tablet PO 20 mg DAILY TENISHA Administration Gabapentin 300 mg 11/22/23 09:00 11/23/23 12:34 Gabapentin 300 Mg Capsule PO 300 mg TID TENISHA Administration Levothyroxine Sodium 100 mcg 11/18/23 08:00 11/23/23 05:39 Levothyroxine Sodium 100 Mcg Tablet PO 100 mcg DAILY@0630 TENISHA Administration Lidocaine
[2023-11-23 14:00] VITALS: BP 133/61; PULSE 57; RESP 16; TEMP 35.9; O2SAT 100
[2023-11-23] MEDS: SENNOSIDES 8.6 MG TABLET PO (17:03)
[2023-11-23 20:38] VITALS: BP 103/70; PULSE 54; RESP 16; TEMP 36.6; O2SAT 97
[2023-11-23] MEDS: FINASTERIDE 5 MG TABLET PO (21:17)
[2023-11-23 21:18] VITALS: PULSE 54
[2023-11-23] MEDS: ATORVASTATIN 40 MG TABLET 80 MG PO (21:18)
[2023-11-23] MEDS: MELATONIN 3 MG TABLET PO (21:24)
[2023-11-24] VITALS (7 sets, daily range): BP systolic 111–130; BP diastolic 62–71; PULSE 53–61; RESP 16; TEMP 36.2–37.2; O2SAT 98
[2023-11-24] MEDS: HYDROcodone/acetaminophen (*CRX) 5-325 MG TABLET 1 TAB PO ×2 (00:40→20:19)
[2023-11-24] MEDS: LEVOTHYROXINE SODIUM 100 MCG TABLET PO (05:32)
[2023-11-24] MEDS: ALENDRONATE SODIUM 70 MG TABLET PO (05:32)
[2023-11-24 06:43] LABS: Basophils Percent Auto 0.6 % (0.2-1.2); Eosinophils Absolute Auto 0.2 K/mm3 (0-0.3); Eosinophils Percent Auto 3.7 % (0-4.4); Hemoglobin 8.1 g/dL (14.0-18.0); Immature Granulocyte Absolute 0.02 K/mm3 (0.00-0.031); Immature Granulocyte Percent A 0.4 % (0-0.5); Lymphocytes Absolute Auto 1.96 K/mm3 (0.9-3.2); Lymphocytes Percent Auto 40.2 % (18.3-44.2); Mean Corpuscular HGB Conc 31.2 g/dl (32-36); Mean Corpuscular Hemoglobin 25.5 pg (26-34); Mean Corpuscular Volume 81.8 fl (80-100); Mean Platelet Volume 10.3 fl (7.4-10.4); Monocytes Absolute Auto 0.4 K/mm3 (0.1-0.6); Monocytes Percent Auto 7.8 % (2.6-8.5); Neutrophils Absolute Auto 2.3 K/mm3 (1.3-6.7); Neutrophils Percent Auto 47.3 % (45.5-73.1); Platelet Count Result 156 k/mm3 (150-375); Red Blood Count 3.18 M/mm3 (4.6-6.20); White Blood Count 4.9 K/mm3 (4.5-10.0)
[2023-11-24 06:52] LABS: Alanine Aminotransferase 9 U/L (6-50); Albumin Level 2.9 g/dL (3.5-5.1); Alkaline Phosphatase 67 U/L (38-126); Anion Gap 6 mmol/L (8-16); Aspartate Amino Transferase 19 U/L (17-59); Bilirubin,Total 0.5 mg/dL (0.2-1.3); Blood Urea Nitrogen 22 mg/dL (9-20); Calcium 8.3 mg/dL (8.4-10.2); Carbon Dioxide 29 mmol/L (22-30); Chloride 96 mmol/L (98-107); Estimated CRCL calculation 50 ml/min; Estimated Glomerular Filt Rate > 60; Glucose 120 mg/dL (65-110); Magnesium 2.1 mg/dL (1.6-2.3); Potassium 4.2 mmol/L (3.4-5.0); Sodium 131 mmol/L (137-145)
[2023-11-24 08:01] LABS: Platelet Estimate Adequate (Adequate)
[2023-11-24 08:02] LABS: Crenated RBC 1+ (NORMAL); Ovalocytes 1+ (NORMAL); Schistocytes None Seen (NORMAL)
[2023-11-24 08:03] LABS: Tear Drop Cells 1+ (NORMAL)
[2023-11-24] MEDS: UMECLIDINIUM BROMIDE 62.5 MCG ELLIPTA 1 PUFF INHALATION (08:17)
--- NOTE | 2023-11-24 09:50 | WPDUROPN2 ---
Progress Note: A&P Assessment and Plan (1) Hematuria: Code(s): R31.9 - Hematuria, unspecified Status: Acute Assessment and Plan: resolved (2) Urinary retention due to benign prostatic hyperplasia: Code(s): N40.1 - Benign prostatic hyperplasia with lower urinary tract symptoms; R33.8 - Other retention of urine Status: Acute Assessment and Plan: continue Flomax. Okay for voiding trial today. if does not pass a voiding trial will likely need to be discharged home with catheter and outpatient urologic follow-up Subjective Subjective Date/Time Seen: 11/24/23 09:50 Interval history: Duron catheter was replaced on November 21. Patient is adamant he would like another voiding trial today. He is on tamsulosin Exam Narrative: no acute distress Duron catheter with clear yellow urine Objective Data Vital Signs Vital Signs: Vital Signs - 24 hr 11/23/23 10:21 11/23/23 14:00 11/23/23 21:18 Temperature 96.6 F L Pulse Rate 57 L 54 L Respiratory Rate 16 Blood Pressure 133/61 Pulse Oximetry 99 100 Oxygen Delivery Room Air Fraction of Inspired Oxygen 11/23/23 20:38 11/23/23 20:00 11/24/23 05:26 Temperature 98 F 98.9 F Pulse Rate 54 L 53 L Respiratory Rate 16 16 Blood Pressure 103/70 111/71 Pulse Oximetry 97 98 Oxygen Delivery Room Air Fraction of Inspired Oxygen 11/24/23 08:17 Temperature Pulse Rate Respiratory Rate Blood Pressure Pulse Oximetry 98 Oxygen Delivery Room Air Fraction of Inspired Oxygen 21 Intake/Output Intake/Output: Intake & Output 11/21/23 11/22/23 11/23/23 11/24/23 23:59 23:59 23:59 23:59 Intake Total 4260 3400 1700 400 Output Total 3950 7195 2174 1900 Balance 777 -569 -254 -3140 Meds/Results Medications: Active Medications Generic Name Dose Route Start Last Admin Trade Name Freq PRN Reason Stop Dose Admin Hydrocodone Bitart/Acetaminophen 1 tab 11/18/23 07:55 11/24/23 00:40 Hydrocodone/Acetaminophen (*Crx) 5-325 Mg Tablet PO 1 tab Q8H PRN Administration pain 4-6 Albuterol 1 puff 11/18/23 07:55 Albuterol Sulfate (*Sp) Aerosol 1 Puff INHALATION Q4H PRN shortness of breath or wheezing Alendronate Sodium 70 mg 11/24/23 06:30 11/24/23 05:32 Alendronate Sodium 70 Mg Tablet PO 70 mg Mo@0630 TENISHA Administration Amlodipine Besylate 5 mg 11/18/23 09:00 11/23/23 09:09 Amlodipine Besylate 5 Mg Tablet PO 5 mg QAM TENISHA Administration Artificial Tears 1 drop 11/22/23 08:26 11/22/23 09:45 Artificial Tears Ophth Soln 15 Ml Bottle EACH EYE 1 drop Q12H PRN Administration Dry Eyes Aspirin 81 mg 11/22/23 09:00 11/23/23 09:09 Aspirin 81 Mg Chewable Tablet PO 81 mg DAILY TENISHA Administration Atorvastatin Calcium 80 mg 11/22/23 21:00 11/23/23 21:18 Atorvastatin 40 Mg Tablet PO 80 mg 2100 TENISHA Administration Benzonatate 200 mg 11/22/23 09:00 11/23/23 17:04 Benzonatate 100 Mg Capsule PO 200 mg TID TENISHA Administration Bisacodyl 10 mg 11/18/23 07:55 Bisacodyl 10 Mg Suppository RECTAL DAILY PRN Constipation Budesonide 3 mg 11/22/23 09:00 11/23/23 09:08 Budesonide 3 Mg Cap.Sr.24h PO 3 mg DAILY TENISHA Administration Carbidopa/Levodopa 1 tablet 11/22/23 09:00 11/23/23 17:03 Carbidopa/Levodopa 25/250 Mg Tablet PO 1 tablet TID TENISHA Administration Carvedilol 3.125 mg 11/22/23 09:00 11/23/23 21:18 Carvedilol 3.125 Mg Tablet PO 3.125 mg Q12HR TENISHA Administration Duloxetine HCl 60 mg 11/18/23 09:00 11/23/23 09:08 Duloxetine Hcl 60 Mg Capsule.Dr PO 60 mg DAILY TENISHA Administration Ferrous Sulfate 325 mg 11/21/23 17:00 11/23/23 17:03 Ferrous Sulfate [address] PO 325 mg BID TENISHA Administration Finasteride 5 mg 11/18/23 21:00 11/23/23 21:17 Finasteride 5 Mg Tablet PO 5 mg QHS TENISHA Administration Furosemide 20 mg 11/22/23 09:00 11/23/23 09:09
[2023-11-24] MEDS: polyethylene glycoL 3350 17 GM POWD.PACK PO (10:15)
[2023-11-24] MEDS: CARBIDOPA/LEVODOPA 25/250 MG TABLET 1 TABLET PO ×3 (10:19→16:52)
[2023-11-24] MEDS: FERROUS SULFATE 325 MG TABLET DR PO ×2 (10:20→16:53)
[2023-11-24] MEDS: carvediloL 3.125 MG TABLET PO ×2 (10:20→20:19)
[2023-11-24] MEDS: oxyBUTYnin CHLORIDE XL 5 MG TAB.ER.24 10 MG PO (10:20)
[2023-11-24] MEDS: GABAPENTIN 300 MG CAPSULE PO ×3 (10:20→16:53)
[2023-11-24] MEDS: SACCHAROMYCES BOULARDII 250 MG CAPSULE PO ×2 (10:21→16:53)
[2023-11-24] MEDS: amLODIPine BESYLATE 5 MG TABLET PO (10:21)
[2023-11-24] MEDS: PANTOPRAZOLE 40 MG TABLET PO (10:21)
[2023-11-24] MEDS: DULoxetine HCL 60 MG CAPSULE.DR PO (10:22)
[2023-11-24] MEDS: NITROFURANTOIN MONOHYD MACROCR 100 MG CAP PO ×2 (10:22→20:19)
[2023-11-24] MEDS: TAMSULOSIN HCL 0.4 MG CAPSULE 0.8 MG PO (10:22)
[2023-11-24] MEDS: FUROSEMIDE 20 MG TABLET PO (10:22)
[2023-11-24] MEDS: BUDESONIDE 3 MG CAP.SR.24H PO (10:23)
[2023-11-24] MEDS: ASPIRIN 81 MG CHEWABLE TABLET PO (10:23)
--- NOTE | 2023-11-24 11:46 | PM.IMPN ---
Progress Note: A&P Assessment and Plan (1) E. coli UTI: Code(s): N39.0 - Urinary tract infection, site not specified; B96.20 - Unspecified Escherichia coli [E. coli] as the cause of diseases classified elsewhere Status: Acute (2) Gross hematuria: Code(s): R31.0 - Gross hematuria Status: Acute (3) Urinary retention due to benign prostatic hyperplasia: Code(s): N40.1 - Benign prostatic hyperplasia with lower urinary tract symptoms; R33.8 - Other retention of urine Status: Acute (4) MARVIN (obstructive sleep apnea): Code(s): G47.33 - Obstructive sleep apnea (adult) (pediatric) Status: Acute (5) Acute on chronic anemia: Code(s): D64.9 - Anemia, unspecified Status: Acute (6) Gastroesophageal reflux disease: Qualifiers: Esophagitis presence: esophagitis presence not specified Qualified Code(s): K21.9 - Gastro-esophageal reflux disease without esophagitis Code(s): K21.9 - Gastro-esophageal reflux disease without esophagitis Status: Acute Plan BPH/Urinary retention/Hematuria -Urology consulted -cysto 11/20/2023 -H&H stable -Resumed Proscar -Failed bladder trial 11/21 indwelling catheter re-inserted -2nd bladder trials 11/24 UTI-RESOLVED -ECOLI 11/15/2023 -Macrobid BID -F/U 11/17 clean A/C anemia -Iron panel shows iron deficiency -Ferrous sulfate added -daily H&H -transfuse Hgb <7.0 Code status: Full code per patient DVT prophylaxis: SCD's Stress ulcer prophylaxis: Protonix 40 BID PT/OT notes: PT/OT pending patient to return to rehab Disposition: Patient undergoing bladder trials unable to void will need indwelling catheter replaced, urology following patient can return to SNF when medically stable. Will attempt bladder trial again. CC consulted to assist with SNF patient stating he does not want to return [facility] -Patient's previous records reviewed on admission -ER notes reviewed in detail on admission -discussed all findings and current treatment plan with patient/Family/POA -Consultations reviewed for recommendations -Patient's disposition for safe discharge discussed with case aide Dictation performed by [employer] direct speech recognition software, therefore fabricator foam rubber variants and typographical errors may occur. Time Spent With Patient Time with patient: 15 - 25 minutes Subjective Date/time seen: 11/24/23 11:46 Interval history: 11/18: Patient complaining of back pain right hip pain which have been chronic and hematuria which is relatively new. Urology has been consulted has seen the patient yet. He had CBI catheter placed but is on CBI. Patient denies nausea vomiting difficulty breathing fever chills or chest pain. 11/19: Today patient is very insistent that he gets surgery to stop the bleeding from his catheter. Patient has been CBI it has been mostly clear but intermittent bleeding is noted in his hemoglobin has dropped. He will remain on CBI and recheck labs in morning. Patient is very frustrated with having to have a catheter for 4 months now and he wants it out but knows he cannot urinate without catheter in place. 11/20/2023: Patient in no acute distress urine clear with CBI no further clots noted. Urology to proceed with cysto today for further evaluation due to reoccurrences. Plan for bladder trials tomorrow 11/21/2023. 11/21: Patient in bed, strauss catheter was pulled currently waiting on patient to void. Patient to return to [facility] pending bladder trials. 11/22: Patient was unable to void and strauss catheter was re-inserted. Patient tremulous patient home medication reconciled by RN will resume home medications takes carbidopa levodopa. Patient will likely need to continue with chronic indwelling catheter. 11/23: Patient seen on bedside commode patient reporting constipation bowel regiment. Patient failed first bladder trial will attempt bladder trials aga
[2023-11-24] MEDS: SENNA/DOCUSATE SODIUM TABLET 1 TAB PO (16:53)
[2023-11-24] MEDS: ACETAMINOPHEN 325 MG TABLET 650 MG PO (17:14)
[2023-11-24] MEDS: FINASTERIDE 5 MG TABLET PO (20:20)
[2023-11-24] MEDS: ATORVASTATIN 40 MG TABLET 80 MG PO (20:27)
[2023-11-25 05:21] VITALS: BP 128/70; PULSE 59; RESP 16; TEMP 36.6; O2SAT 98
[2023-11-25] MEDS: LEVOTHYROXINE SODIUM 100 MCG TABLET PO (05:26)
[2023-11-25 06:44] LABS: Basophils Percent Auto 0.5 % (0.2-1.2); Eosinophils Absolute Auto 0.2 K/mm3 (0-0.3); Eosinophils Percent Auto 4.4 % (0-4.4); Hematocrit 26.7 % (42.0-52.0); Hemoglobin 8.1 g/dL (14.0-18.0); Immature Granulocyte Absolute 0.03 K/mm3 (0.00-0.031); Immature Granulocyte Percent A 0.5 % (0-0.5); Lymphocytes Absolute Auto 2.34 K/mm3 (0.9-3.2); Lymphocytes Percent Auto 42.8 % (18.3-44.2); Mean Corpuscular HGB Conc 30.3 g/dl (32-36); Mean Corpuscular Hemoglobin 25.2 pg (26-34); Mean Corpuscular Volume 82.9 fl (80-100); Monocytes Absolute Auto 0.5 K/mm3 (0.1-0.6); Neutrophils Absolute Auto 2.3 K/mm3 (1.3-6.7); Neutrophils Percent Auto 42.8 % (45.5-73.1); Platelet Count Result 171 k/mm3 (150-375); Red Blood Count 3.22 M/mm3 (4.6-6.20); Red Cell Distribution Width 17.2 % (11.5-14.5); White Blood Count 5.5 K/mm3 (4.5-10.0)
[2023-11-25 06:59] LABS: Alanine Aminotransferase 10 U/L (6-50); Albumin Level 3.1 g/dL (3.5-5.1); Alkaline Phosphatase 77 U/L (38-126); Anion Gap 5 mmol/L (8-16); Aspartate Amino Transferase 19 U/L (17-59); Bilirubin,Total 0.5 mg/dL (0.2-1.3); Blood Urea Nitrogen 22 mg/dL (9-20); Calcium 8.3 mg/dL (8.4-10.2); Carbon Dioxide 31 mmol/L (22-30); Chloride 96 mmol/L (98-107); Estimated CRCL calculation 50 ml/min; Estimated Glomerular Filt Rate > 60; Glucose 109 mg/dL (65-110); Magnesium 2.1 mg/dL (1.6-2.3); Potassium 3.9 mmol/L (3.4-5.0); Sodium 132 mmol/L (137-145)
[2023-11-25] MEDS: UMECLIDINIUM BROMIDE 62.5 MCG ELLIPTA 1 PUFF INHALATION (07:47)
[2023-11-25 07:48] VITALS: PULSE 62; RESP 20; O2SAT 95
[2023-11-25] MEDS: HYDROcodone/acetaminophen (*CRX) 5-325 MG TABLET 1 TAB PO (09:03)
[2023-11-25 09:05] VITALS: BP 135/62; PULSE 62; O2SAT 99
[2023-11-25] MEDS: ASPIRIN 81 MG CHEWABLE TABLET PO (09:06)
[2023-11-25] MEDS: DULoxetine HCL 60 MG CAPSULE.DR PO (09:07)
[2023-11-25] MEDS: NITROFURANTOIN MONOHYD MACROCR 100 MG CAP PO (09:07)
[2023-11-25] MEDS: BENZONATATE 100 MG CAPSULE 200 MG PO ×2 (09:07→12:52)
[2023-11-25] MEDS: SENNA/DOCUSATE SODIUM TABLET 1 TAB PO (09:07)
[2023-11-25] MEDS: CARBIDOPA/LEVODOPA 25/250 MG TABLET 1 TABLET PO ×2 (09:07→12:52)
[2023-11-25] MEDS: amLODIPine BESYLATE 5 MG TABLET PO (09:07)
[2023-11-25 09:08] VITALS: PULSE 62
[2023-11-25] MEDS: FERROUS SULFATE 325 MG TABLET DR PO (09:08)
[2023-11-25] MEDS: carvediloL 3.125 MG TABLET PO (09:08)
[2023-11-25] MEDS: GABAPENTIN 300 MG CAPSULE PO ×2 (09:08→12:52)
[2023-11-25] MEDS: SACCHAROMYCES BOULARDII 250 MG CAPSULE PO (09:08)
[2023-11-25] MEDS: BUDESONIDE 3 MG CAP.SR.24H PO (09:09)
[2023-11-25] MEDS: TAMSULOSIN HCL 0.4 MG CAPSULE 0.8 MG PO (09:09)
[2023-11-25] MEDS: PANTOPRAZOLE 40 MG TABLET PO (09:09)
[2023-11-25] MEDS: oxyBUTYnin CHLORIDE XL 5 MG TAB.ER.24 10 MG PO (09:09)
[2023-11-25] MEDS: polyethylene glycoL 3350 17 GM POWD.PACK PO (09:09)
[2023-11-25] MEDS: FUROSEMIDE 20 MG TABLET PO (09:09)
--- NOTE | 2023-11-25 12:40 | PM.DS ---
DS: Admitting Diagnosis Discharge Date 11/25/2023 Admitting Diagnosis Hematuria/Urinary clots DS: Discharge Diagnosis Discharge Diagnosis (1) E. coli UTI: Code(s): N39.0 - Urinary tract infection, site not specified; B96.20 - Unspecified Escherichia coli [E. coli] as the cause of diseases classified elsewhere Status: Acute (2) Gross hematuria: Code(s): R31.0 - Gross hematuria Status: Acute (3) Urinary retention due to benign prostatic hyperplasia: Code(s): N40.1 - Benign prostatic hyperplasia with lower urinary tract symptoms; R33.8 - Other retention of urine Status: Acute (4) MARVIN (obstructive sleep apnea): Code(s): G47.33 - Obstructive sleep apnea (adult) (pediatric) Status: Acute (5) Acute on chronic anemia: Code(s): D64.9 - Anemia, unspecified Status: Acute (6) Gastroesophageal reflux disease: Qualifiers: Esophagitis presence: esophagitis presence not specified Qualified Code(s): K21.9 - Gastro-esophageal reflux disease without esophagitis Code(s): K21.9 - Gastro-esophageal reflux disease without esophagitis Status: Acute Plan BPH/Urinary retention/Hematuria -Failed bladder trials -Chronic strauss catheter placed -f/U with Urology 4 weeks for further bladder tials -Continue flomax -Strauss catheter care A/C anemia -Iron panel shows iron deficiency -Ferrous sulfate added -F/U CBC in 1 month DS: Summary Hospital Course Hospital Course: Chief Complaint: Urinating blood clots Narrative: 83-year-old male with a past medical history of Parkinson's disease, renal cell carcinoma status post right nephrectomy, silicosis, obstructive sleep apnea, essential hypertension, silicosis and several other comorbidities who had presented to the ER from [facility] due to hematuria and difficulty urinating.? The patient has had a Strauss catheter in place for the last 4-5 months.? He came to the ER 2 days ago and had to have the Strauss catheter replaced at that time his urine was consistent with UTI and urine culture was sent which grew out E coli that was pansensitive.? The patient tells me that he was having abdominal distension and noticed significant blood around his Strauss catheter.? He was having abdominal discomfort as well.? He he thought that the discomfort was due to his Strauss catheter and asked the [facility] nurses to remove the catheter.? They removed his catheter which of course resulted in the patient having more urinary retention and abdominal discomfort.? When he arrived to the ER he had a large clot at his urethral meatus.? Another Strauss catheter was placed in the ER here patient had return of approximately 1800 mL of frankly bloody urine.? He reports that he has chronically chilled.? He has not had any measured fevers.? The patient does have a history of mild cognitive impairment but despite this is a good historian.? He denies any changes in his bowels.? He has not had any nausea or vomiting.? Interval history: 11/18:? Patient complaining of back pain right hip pain which have been chronic and hematuria which is relatively new.? Urology has been consulted has seen the patient yet.? He had CBI catheter placed but is on CBI.? Patient denies nausea vomiting difficulty breathing fever chills or chest pain. 11/19:? Today patient is very insistent that he gets surgery to stop the bleeding from his catheter.? Patient has been CBI it has been mostly clear but intermittent bleeding is noted in his hemoglobin has dropped.? He will remain on CBI and recheck labs in morning.? Patient is very frustrated with having to have a catheter for 4 months now and he wants it out but knows he cannot urinate without catheter in place. 11/20/2023:??Patient in no acute distress urine clear with CBI no further clots noted.? Urology to proceed with cysto today for further evaluation due to reoccurrences.? Plan for bladder trials tomorrow 11/21/2023. 11/21:
[2023-11-25 14:00] VITALS: BP 115/57; PULSE 59; RESP 16; TEMP 36.1; O2SAT 98
== END 2023-11-25 15:10 | DRG 699 ==
LOC: ANHED 21:09 → ANH3MEDSUR 21:50
PROVIDERS: Nurse Practitioner; Urology; Admitting Provider Internal Medicine; Emergency Provider Emergency Medicine; PCP Family Medicine; Visit Provider Nurse Practitioner Family
PROC: 0TCB8ZZ Extirpation of Matter from Bladder, Via Natural or Artificial Opening Endoscopic (ICD-10-PCS; CPT 52001; principal; 2023-11-20 12:30)
DX: T83.511A Infection and inflammatory reaction due to indwelling urethral catheter, initial encounter (principal); D62 Acute posthemorrhagic anemia; N39.0 Urinary tract infection, site not specified; R31.0 Gross hematuria; B96.20 Unspecified Escherichia coli [E. coli] as the cause of diseases classified elsewhere; N40.1 Benign prostatic hyperplasia with lower urinary tract symptoms; R33.8 Other retention of urine; G47.33 Obstructive sleep apnea (adult) (pediatric); K21.9 Gastro-esophageal reflux disease without esophagitis; D50.9 Iron deficiency anemia, unspecified; G20.A1 Parkinson's disease without dyskinesia, without mention of fluctuations; I10 Essential (primary) hypertension; J44.9 Chronic obstructive pulmonary disease, unspecified; N28.1 Cyst of kidney, acquired; E03.9 Hypothyroidism, unspecified; M17.0 Bilateral primary osteoarthritis of knee; Z99.3 Dependence on wheelchair; Z90.5 Acquired absence of kidney; Z90.49 Acquired absence of other specified parts of digestive tract; Z85.528 Personal history of other malignant neoplasm of kidney; Z85.6 Personal history of leukemia
CPT/HCPCS: 36415; 74177; 76857; 80048; 80053; 81001; 82607; 82728; 82746; 83540; 83550; 83735; 85025; 85027; 85046; 87086; 93970; 94640; 96361; 96365; 96375; 99285; A9270; G0378; J0690; J0696; J2270; J2405; J2704; J3010; J7030; J7120; Q9967

== ENCOUNTER 2023-12-03 22:13 | Inpatient (IN) | payer MEDICARE, SELFPAY ==
--- NOTE | ~2023-12-03 | CT_ITS ---
EXAMINATION: CT abdomen pelvis wo con DATE: 12/03/2023 23:58 INDICATION: Low abdominal pain. Hematuria. TECHNIQUE: Computed tomography (CT) of the abdomen and pelvis was performed without intravenous contr ast. Automated exposure control and iterative reconstruction technique were employed. The dose-length product was 918.12 mGy-cm. COMPARISON: CT abdomen and pelvis 11/17/2023 FINDINGS: The visualized portions of the lung bases demonstrate mild atelectasis. Calcified right hil ar lymph nodes are consistent with old granulomatous disease. There is a trace right pleural effusion . The heart size is normal. There are coronary artery calcifications. There is a trace pericardial ef fusion. The liver is normal. There are changes of cholecystectomy. The spleen, pancreas, and adrenal glands and normal. There are changes of right nephrectomy. There is a 16 mm cyst in left kidney. Ther e is a small parenchymal calcification in left kidney. There is calcified atherosclerosis of the aort a and many of the other arteries. The bladder is decompressed by Duron catheter. The prostate is mild ly enlarged. There is diverticulosis of the colon without evidence of diverticulitis. There are no di lated loops of bowel. There is a 3.0 cm curvilinear density in the sigmoid colon. There is mild wall thickening of the sigmoid colon. The appendix is not visualized. There are no pathologically enlarged lymph nodes. There is no free intraperitoneal fluid. There is a fracture of right femoral neck with internal fixation. There is severe lumbar spondylosis. IMPRESSION: 1. Mild wall thickening of the sigmoid colon, consistent with colitis. 2. 3.0 cm curvilinear density in the sigmoid colon, which may be an ingested bone. Reviewed, dictated and finalized at location E. [employer] ENGINEERING MANAGER IMPRESSION: 1. Mild wall thickening of the sigmoid colon, consistent with colitis. 2. 3.0 cm curvilinear density in the sigmoid colon, which may be an ingested codey ne.
[2023-12-03 22:06] VITALS: BP 138/51; PULSE 63; RESP 14; TEMP 36.4; O2SAT 100
[2023-12-03 22:53] LABS: Basophils Absolute Auto 0.1 K/mm3 (0.0-0.1); Basophils Percent Auto 0.6 % (0.2-1.2); Eosinophils Absolute Auto 0.3 K/mm3 (0-0.3); Eosinophils Percent Auto 3.8 % (0-4.4); Hematocrit 29.4 % (42.0-52.0); Immature Granulocyte Absolute 0.05 K/mm3 (0.00-0.031); Immature Granulocyte Percent A 0.6 % (0-0.5); Lymphocytes Absolute Auto 3.41 K/mm3 (0.9-3.2); Lymphocytes Percent Auto 40.4 % (18.3-44.2); Mean Corpuscular HGB Conc 30.6 g/dl (32-36); Mean Corpuscular Hemoglobin 25.1 pg (26-34); Mean Corpuscular Volume 82.1 fl (80-100); Mean Platelet Volume 9.6 fl (7.4-10.4); Monocytes Percent Auto 11.5 % (2.6-8.5); Neutrophils Absolute Auto 3.6 K/mm3 (1.3-6.7); Neutrophils Percent Auto 43.1 % (45.5-73.1); Platelet Count Result 221 k/mm3 (150-375); Red Blood Count 3.58 M/mm3 (4.6-6.20); Red Cell Distribution Width 17.7 % (11.5-14.5); White Blood Count 8.4 K/mm3 (4.5-10.0)
[2023-12-03 23:00] VITALS: BP 130/62; PULSE 63; RESP 16; O2SAT 94
[2023-12-03 23:03] LABS: Alanine Aminotransferase 6 U/L (6-50); Albumin Level 3.3 g/dL (3.5-5.1); Alkaline Phosphatase 81 U/L (38-126); Anion Gap 6 mmol/L (8-16); Aspartate Amino Transferase 18 U/L (17-59); Bilirubin,Total 0.5 mg/dL (0.2-1.3); Blood Urea Nitrogen 22 mg/dL (9-20); Calcium 8.1 mg/dL (8.4-10.2); Carbon Dioxide 25 mmol/L (22-30); Chloride 99 mmol/L (98-107); Estimated CRCL calculation 56 ml/min; Estimated Glomerular Filt Rate > 60; Glucose 122 mg/dL (65-110); Potassium 3.5 mmol/L (3.4-5.0); Sodium 130 mmol/L (137-145)
--- NOTE | 2023-12-03 23:05 | PC.NURSE ---
care and report given to SHARITA Larios. all questions answered.
[2023-12-03] MEDS: SODIUM CHLORIDE 0.9% IV 1,000 ML 999 ML IV CONT (23:35)
[2023-12-04] VITALS (10 sets, daily range): BP systolic 103–143; BP diastolic 49–76; PULSE 55–70; RESP 14–20; TEMP 36.7–37; O2SAT 92–100
[2023-12-04 00:02] LABS: Color Urine Amber (Yellow)
[2023-12-04 00:03] LABS: Appearance Urine Cloudy (Clear); Bilirubin Urine Negative (Negative); Blood Urine 3+ (Negative); Glucose Urine UA Negative (Negative); Ketones Urine Negative (Negative); Nitrate Urine Negative (Negative); Protein Urine 3+ mg/dL (Negative); Specific Grav Ur 1.019 (1.001-1.035); pH Urine 5.5 (5.0-9.0)
[2023-12-04 00:04] LABS: Leukocyte Esterase Ur 2+ LEU/UL (Negative)
[2023-12-04 00:07] LABS: Bacteria Urine Trace /hpf; RBC Urine >100 /hpf (0-2); WBC Urine 51-100 /hpf
[2023-12-04 00:08] LABS: Add Urine Microscopic? YES
[2023-12-04 00:09] LABS: Non Pathogenic Casts 0-2
[2023-12-04 00:29] LABS: Anisocytosis 1+ (NORMAL); Macrocytosis 1+ (NORMAL); Ovalocytes 1+ (NORMAL); Platelet Estimate Adequate (Adequate); Schistocytes None Seen (NORMAL)
--- NOTE | 2023-12-04 00:51 | ED.MALEGU ---
HPI - Male Genitourinary General Chief complaint: Urogenital-Male Stated complaint: BLOOD IN URINARY CATHETER Time Seen by Provider: 12/03/23 22:24 Source: patient, RN notes reviewed and old records reviewed Mode of arrival: EMS Limitations: dementia History of Present Illness HPI Narrative: Patient is an 83-year-old male who presents the ED via EMS with report of hematuria. Patient is a resident of [facility]. Per nursing report, patient developed hematuria today and catheter was not draining appropriately. They attempted to flush the catheter, but were unsuccessful. Sent here for further evaluation. Patient noted to have gross hematuria in Duron catheter bag upon arrival. He does report lower abdominal discomfort and diarrhea for last 2 days. Denies nausea, vomiting, fevers. Patient has issues with urinary retention. Recently admitted for similar symptoms, seen by Urology and underwent cystoscopy. Related Data Home Medications Medication Instructions Recorded Confirmed alendronate 70 mg tablet 70 mg PO WEEKLY 06/03/23 11/17/23 bisacodyl 10 mg rectal suppository 10 mg RECTAL DAILY PRN Constipation 06/03/23 11/17/23 (Dulcolax (bisacodyl)) Saccharomyces boulardii 250 mg 250 mg PO BID 11/22/23 11/22/23 capsule aspirin 81 mg chewable tablet 81 mg PO DAILY 11/22/23 11/22/23 benzonatate 200 mg capsule 200 mg PO TID 11/22/23 11/22/23 budesonide 3 mg 3 mg PO DAILY 11/22/23 11/22/23 capsule,delayed,extended release carbidopa 25 mg-levodopa 250 mg 1 tablet PO TID 11/22/23 11/22/23 tablet carvedilol 3.125 mg tablet 3.125 mg PO BID 11/22/23 11/22/23 dextran 70-hypromellose 0.1 %-0.3 1 drp EACH EYE Q12H PRN Dry Eyes 11/22/23 11/22/23 % eye drops (Artificial Tears (dextran 70-hypromellose)) furosemide 20 mg tablet 20 mg PO DAILY 11/22/23 11/22/23 gabapentin 300 mg capsule 300 mg PO TID 11/22/23 11/22/23 loperamide 2 mg tablet 2 mg PO Q4H PRN Diarrhea 11/22/23 11/22/23 magnesium hydroxide 400 mg/5 mL 30 ml PO HS PRN Constipation 11/22/23 11/22/23 oral suspension (Milk of Magnesia) melatonin 3 mg tablet 3 mg PO HS PRN Sleep 11/22/23 11/22/23 omeprazole 20 mg capsule,delayed 20 mg PO DAILY 11/22/23 11/22/23 release oxybutynin chloride 10 mg 10 mg PO DAILY 11/22/23 11/22/23 tablet,extended release 24 hr sennosides 8.6 mg-docusate sodium 1 tab-cap PO BID 11/22/23 11/22/23 50 mg tablet Allergies Allergy/AdvReac Type Severity Reaction Status Date / Time neomycin Allergy Unknown rash Verified 11/17/23 15:33 Sulfa (Sulfonamide Allergy Unknown Rash Verified 11/17/23 15:33 Antibiotics) castor oil AdvReac Intermediate Nausea and Verified 11/17/23 15:33 Vomiting erythromycin base AdvReac Intermediate SHAKING, Verified 11/17/23 15:33 HEADACHE Review of Systems Review of Systems: CONSTITUTIONAL: Denies fever, chills, or sweats. GASTROINTESTINAL: See HPI. GENITOURINARY: See HPI. All systems reviewed & are unremarkable except as noted in HPI and below PMFSH Past Medical History Medical History Arthritis Benign prostatic hyperplasia Chronic anemia Chronic kidney disease, stage 3 Baseline creatinine ranges between 1.30 and 1.40. 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 Surgical History Surgical History History of appendectomy History of arthroscopy of right knee History of back surgery History of cataract extraction History of cholecystectomy History
[2023-12-04] MEDS: PIPERACILLN/TAZ 3.375GM/NS50ML 3.375 GM/50 ML BAG IVPB ×4 (02:09→19:49)
--- NOTE | 2023-12-04 06:10 | ADMGEN ---
This patient, Florencio Bird, was admitted to Medical Room 341-01. Patient/family oriented to hospital policies and general routines including ID bracelet, bed and alarms, visiting hours, pain management, procedures, bathroom and other care routines, personal items, smoking policy, room service/diet, and visiting hours. Information on how to activate the Rapid Response Team has been discussed. Patient/Family are encouraged to report perceived risks to care and to ask questions if they do not understand what they are told or what they should do.
--- NOTE | 2023-12-04 07:45 | WPDGICN ---
Assessment and Plan Assessment and plan (1) Colitis: Code(s): K52.9 - Noninfective gastroenteritis and colitis, unspecified Status: Acute Assessment and Plan: He has done with diarrhea on and off for several years and is now having diarrhea again. CT scan shows inflammation in the sigmoid colon. (2) Hematuria: Qualifiers: Hematuria type: unspecified type Qualified Code(s): R31.9 - Hematuria, unspecified Code(s): R31.9 - Hematuria, unspecified Status: Acute Assessment and Plan: This was the primary reason for his admission and he will be seen by Urology. He has an indwelling catheter. (3) Foreign body in colon: Qualifiers: Encounter type: initial encounter Qualified Code(s): T18.4XXA - Foreign body in colon, initial encounter Code(s): T18.4XXA - Foreign body in colon, initial encounter Status: Acute Assessment and Plan: CT scan shows: IMPRESSION: 1. Mild wall thickening of the sigmoid colon, consistent with colitis. 2. 3.0 cm curvilinear density in the sigmoid colon, which may be an ingested bone. Plan Will place on clear liquid diet and begin prep for colonoscopy to be done tomorrow. I told that he seems to have foreign body which we will attempt to remove unless it passes today. GI Consult Note Consult date/time: 12/04/23 07:45 HPI: Florencio Bird is a 83 year old male who was asked to see because of an abnormal CT scan showing colitis and a possible filling defect in the sigmoid colon. He is brought to emergency room because of hematuria. He is a resident of [facility]. He states that he has had blood in his urine for several days. He told me that he would be happy to have his prostate removed ?if it is necessary? His only gastrointestinal symptoms are diarrhea which she says has been there for a quite a while. I recall that I had seen him long ago for diarrhea and performed a colonoscopy [facility] about 6 years ago. At that time he was also complaining of diarrhea. The examination revealed only diverticulosis. Review of Systems Review of Systems: All systems reviewed & are unremarkable except as noted in HPI and below PMFSH Past Medical History Medical History Arthritis Benign prostatic hyperplasia Chronic anemia Chronic kidney disease, stage 3 Baseline creatinine ranges between 1.30 and 1.40. 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 Surgical History Surgical History History of appendectomy History of arthroscopy of right knee History of back surgery History of cataract extraction History of cholecystectomy History of repair of left rotator cuff History of right nephrectomy (2003) Family History Family History Father Family history of liver disease Family history of lung cancer Patient's father is Family history of primary malignant neoplasm of liver Mother Family history of heart disease in male family member before age 55 Patient's mother is Family history of coronary artery disease Acute myocardial infarction Sibling Family history of lung cancer Family history of malignant neoplasm of bone Patient's sister is Patient's brother is Malignant neoplasm of prostate Grandparent Family history of arthritis Other Family history of malignant neoplasm of kidney Social History Social Hi
[2023-12-04] MEDS: TAMSULOSIN HCL 0.4 MG CAPSULE 0.8 MG PO (09:26)
[2023-12-04] MEDS: FERROUS SULFATE 325 MG TABLET DR PO (09:27)
[2023-12-04] MEDS: DULoxetine HCL 60 MG CAPSULE.DR PO (09:27)
[2023-12-04] MEDS: amLODIPine BESYLATE 5 MG TABLET PO (09:27)
[2023-12-04] MEDS: FUROSEMIDE 20 MG TABLET PO (09:27)
[2023-12-04] MEDS: GABAPENTIN 300 MG CAPSULE PO ×3 (09:27→17:28)
[2023-12-04] MEDS: BENZONATATE 100 MG CAPSULE 200 MG PO ×3 (09:27→17:28)
[2023-12-04] MEDS: PANTOPRAZOLE 40 MG TABLET PO (09:28)
[2023-12-04] MEDS: BUDESONIDE 3 MG CAP.SR.24H PO (09:30)
[2023-12-04] MEDS: CARBIDOPA/LEVODOPA 25/250 MG TABLET 1 TABLET PO ×3 (09:30→17:28)
[2023-12-04] MEDS: oxyBUTYnin CHLORIDE XL 5 MG TAB.ER.24 10 MG PO (09:30)
[2023-12-04] MEDS: SACCHAROMYCES BOULARDII 250 MG CAPSULE PO ×2 (09:30→17:28)
[2023-12-04] MEDS: carvediloL 3.125 MG TABLET PO ×2 (09:31→17:28)
--- NOTE | 2023-12-04 10:10 | WPDURCON ---
Assessment and Plan Assessment and plan (1) Hematuria: Qualifiers: Hematuria type: unspecified type Qualified Code(s): R31.9 - Hematuria, unspecified Code(s): R31.9 - Hematuria, unspecified Status: Acute Assessment and Plan: Likely related to suspected urinary tract infection and exacerbated by aspirin use. He had recent negative cystoscopy 11/20/2023. Catheter is draining well at this time and urine is free of clots. Continue to irrigate catheter prn to ensure draining well. Aspirin is on hold at this time. (2) Urinary retention: Code(s): R33.9 - Retention of urine, unspecified Status: Acute Assessment and Plan: Ongoing issue. He had an indwelling strauss for many months. He failed a void trial 10/2023. Plan to continue with director long term care indwelling catheter. May benefit from urodynamic testing as an outpatient (3) UTI (urinary tract infection): Qualifiers: Hematuria presence: with hematuria Urinary tract infection type: acute cystitis Qualified Code(s): N30.01 - Acute cystitis with hematuria Code(s): N39.0 - Urinary tract infection, site not specified Status: Suspected Assessment and Plan: UA abnormal, concerning for infection. Urine culture is pending. Continue empiric antibiotics while awaiting culture results Urology Consult Note HPI Date Seen: 12/04/23 Requesting Physician: London Frost MD Primary Care Provider: Raoul Forbes MD Consult Narrative Narrative: Florencio Bird is a 83 year old male with a history of kidney cancer s/p right nephrectomy in 2000, BPH, urinary retention, and Parkinson's disease who resides in a alf who is being seen in consultation for evaluation of gross hematuria. He had a recent admission in 10/2023 during which time he was evaluated by Dr. Mejía for gross hematuria. He underwent cystoscopy on 11/20/23 which was unrevealing.A voiding trial was attempted which was unsuccessful. He was discharged with his strauss in place. The patient reports that 2-3 days ago he began to notice blood in his strauss catheter again. Attempts were made to flush his catheter at his nursing facility which were unsuccessful and he was sent to the ER for evaluation. On arrival, his catheter was irrigated with return of several small clots. Hemoglobin is stable at 9.0. His creatinine is within normal limits at 0.9. UA is abnormal, concerning for infection. Urine culture is pending. A CT was completed which demonstrates a solitary left kidney without stones or hydro, decompressed bladder, and mild prostatomegaly. At the time of my evaluation, his catheter is draining light pink urine without clots. He complains of abdominal pain but denies suprapubic pain or flank pain. Review of Systems Review of Systems: All systems reviewed & are unremarkable except as noted in HPI and below PMFSH Past Medical History Medical History Arthritis Benign prostatic hyperplasia Chronic anemia Chronic kidney disease, stage 3 Baseline creatinine ranges between 1.30 and 1.40. 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 Surgical History Surgical History History of appendectomy History of arthroscopy of right knee History of back surgery History of cataract extraction History of cholecystectomy History of repair of left rotator cuff History of right nephrectomy (2003) Family History Family History (Reviewed 12/04/23
--- NOTE | 2023-12-04 11:10 | PM.IMHP ---
H&P: HPI History of Present Illness Date/Time: 12/04/23 0208 Chief Complaint: Hematuria, Abdominal pain- Colitis Narrative: 83 year old male with PMHx of BPH, Chronic anemia, CKD stage 3, Chronic lymphocytic leukemia, COPD, Cognitive impairment, Depression, Anxiety, Diastolic dysfunction, HTN, GERD, Hypothyroidism, MARVIN, Parkingsons and Renal cell carcinoma- S/O right nephrectomy, who presented from [facility] to ER with concerns for hematuria and his catheter not draining appropriately. He also reported some lower abdominal pain and diarrhea. ER work up discovered strauss draining dark red urine.? Urinalysis consistent with infection- sent for culture.? Basic laboratory studies were fairly unremarkable.? No leukocytosis.? Chronic stable anemia.? Hemoglobin 9.0 on admission.? Chemistry unremarkable.? Stable kidney function.? Sodium slightly low 130.? Otherwise stable electrolytes.?CT of abdomen pelvis obtained and shows findings consistent with colitis, also shows 3 cm curvilinear density in the sigmoid colon, which may represent an ingested bone. Patient notes that hematuria started approx 2 days ago, he denies any trauma to the site. He was admitted for GI consult, Urology consult and Abx for UTI. Home medications will be addressed and added appropriately. It is note that patient had recent admission and was DC'd on 11/26 for similiar issues, seen by urology and underwent cystoscopy. Today, he is alert and oriented. He stated that he does experience some abdominal tenderness upon palpation. Rated his overall pain at an 8/10. Notes that he is WC bound at [place]. GI saw and will begin prep for colonoscopy on 12/05- possible removal of FB if it has not already passed during prep. Urology saw today and expressed that hematuria is likely due to suspected UTI and exacerbated by asprin use, failed voiding trials historically and plan to continue indwelling catheter long-term, but patient may benefit from urodynamic testing outpatient. Continue empiric abx to cover suspected UTI and colitis. Review of Systems Review of Systems: All systems reviewed & are unremarkable except as noted in HPI and below PMFSH Past Medical History Medical History Arthritis Benign prostatic hyperplasia Chronic anemia Chronic kidney disease, stage 3 Baseline creatinine ranges between 1.30 and 1.40. 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 Surgical History Surgical History History of appendectomy History of arthroscopy of right knee History of back surgery History of cataract extraction History of cholecystectomy History of repair of left rotator cuff History of right nephrectomy (2003) Family History Family History Father Family history of liver disease Family history of lung cancer Patient's father is Family history of primary malignant neoplasm of liver Mother Family history of heart disease in male family member before age 55 Patient's mother is Family history of coronary artery disease Acute myocardial infarction Sibling Family history of lung cancer Family history of malignant neoplasm of bone Patient's sister is Patient's brother is Malignant neoplasm of prostate Grandparent Family history of arthritis Other Family history of malignant neoplasm of kidney Social History Social History
[2023-12-04 12:29] LABS: Hematocrit 27.6 % (42.0-52.0); Hemoglobin 8.4 g/dL (14.0-18.0); Mean Corpuscular HGB Conc 30.4 g/dl (32-36); Mean Corpuscular Hemoglobin 25.1 pg (26-34); Mean Corpuscular Volume 82.6 fl (80-100); Mean Platelet Volume 9.6 fl (7.4-10.4); Platelet Count Result 217 k/mm3 (150-375); Red Blood Count 3.34 M/mm3 (4.6-6.20); Red Cell Distribution Width 17.8 % (11.5-14.5); White Blood Count 8.6 K/mm3 (4.5-10.0)
[2023-12-04 12:38] LABS: Alanine Aminotransferase 8 U/L (6-50); Alkaline Phosphatase 69 U/L (38-126); Anion Gap 6 mmol/L (8-16); Aspartate Amino Transferase 16 U/L (17-59); Bilirubin,Total 0.5 mg/dL (0.2-1.3); Blood Urea Nitrogen 17 mg/dL (9-20); Carbon Dioxide 25 mmol/L (22-30); Chloride 101 mmol/L (98-107); Estimated CRCL calculation 56 ml/min; Estimated Glomerular Filt Rate > 60; Glucose 121 mg/dL (65-110); Potassium 3.2 mmol/L (3.4-5.0); Sodium 132 mmol/L (137-145)
[2023-12-04] MEDS: polyethylene glycoL 3350 238 GM BOTTLE PO (17:44)
[2023-12-04] MEDS: FINASTERIDE 5 MG TABLET PO (19:53)
[2023-12-04] MEDS: ATORVASTATIN 40 MG TABLET 80 MG PO (19:53)
[2023-12-04] MEDS: MELATONIN 3 MG TABLET PO (19:53)
[2023-12-04] MEDS: HYDROcodone/acetaminophen (*CRX) 5-325 MG TABLET 1 TAB PO (19:56)
[2023-12-04] MEDS: ONDANSETRON INJ 4 MG/2 ML VIAL IV PUSH (23:10)
[2023-12-05] VITALS (11 sets, daily range): BP systolic 104–136; BP diastolic 45–67; PULSE 57–62; RESP 14–21; TEMP 36.3–36.9; O2SAT 98–100
[2023-12-05] MEDS: PIPERACILLN/TAZ 3.375GM/NS50ML 3.375 GM/50 ML BAG IVPB ×4 (01:18→20:22)
[2023-12-05] MEDS: HYDROcodone/acetaminophen (*CRX) 5-325 MG TABLET 1 TAB PO ×2 (06:39→20:22)
[2023-12-05] MEDS: ONDANSETRON INJ 4 MG/2 ML VIAL IV PUSH (06:39)
[2023-12-05] MEDS: MAGNESIUM CITRATE 300 ML BTL 180 ML PO (06:44)
[2023-12-05 06:48] LABS: Hematocrit 28.5 % (42.0-52.0); Hemoglobin 8.8 g/dL (14.0-18.0); Mean Corpuscular HGB Conc 30.9 g/dl (32-36); Mean Corpuscular Hemoglobin 25.3 pg (26-34); Mean Corpuscular Volume 81.9 fl (80-100); Mean Platelet Volume 9.8 fl (7.4-10.4); Platelet Count Result 209 k/mm3 (150-375); Red Blood Count 3.48 M/mm3 (4.6-6.20); Red Cell Distribution Width 17.8 % (11.5-14.5); White Blood Count 7.8 K/mm3 (4.5-10.0)
[2023-12-05 07:13] LABS: Alanine Aminotransferase 7 U/L (6-50); Albumin Level 2.9 g/dL (3.5-5.1); Alkaline Phosphatase 63 U/L (38-126); Anion Gap 7 mmol/L (8-16); Aspartate Amino Transferase 19 U/L (17-59); Bilirubin,Total 0.9 mg/dL (0.2-1.3); Blood Urea Nitrogen 16 mg/dL (9-20); Calcium 8.1 mg/dL (8.4-10.2); Carbon Dioxide 26 mmol/L (22-30); Chloride 100 mmol/L (98-107); Estimated CRCL calculation 51 ml/min; Estimated Glomerular Filt Rate > 60; Glucose 113 mg/dL (65-110); Potassium 3.2 mmol/L (3.4-5.0); Sodium 133 mmol/L (137-145)
[2023-12-05] MEDS: CARBIDOPA/LEVODOPA 25/250 MG TABLET 1 TABLET PO ×3 (09:07→17:02)
[2023-12-05] MEDS: GABAPENTIN 300 MG CAPSULE PO ×3 (09:09→17:05)
[2023-12-05] MEDS: amLODIPine BESYLATE 5 MG TABLET PO (09:12)
[2023-12-05] MEDS: carvediloL 3.125 MG TABLET PO ×2 (09:13→17:03)
[2023-12-05] MEDS: UMECLIDINIUM BROMIDE 62.5 MCG ELLIPTA 1 PUFF INHALATION (09:24)
[2023-12-05] MEDS: LACTATED RINGERS 1,000 ML 150 ML IV CONT (11:17)
--- NOTE | 2023-12-05 11:26 | WPDANESEPPF ---
Anes - Initial Pre Proc Eval Procedure: Operation Date: 12/05/23 13:00 Proposed Procedures p Colonoscopy - Gregory Ziegler MD Date/Time: 12/05/23 11:26 Surgeon: London Frost MD Pre Op Diagnosis: UTI, Hematuria, Colitis, Colon FB Patient Data Age: 83 Gender: M Height: 1.78 m Weight: 81.6 kg Last Vital Signs Temp 98.5 F 12/05/23 11:08 Pulse 60 12/05/23 11:08 Resp 20 12/05/23 11:08 BP 134/62 12/05/23 11:08 Pulse Ox 98 12/05/23 11:08 O2 Del Method Room Air 12/05/23 11:08 Allergies Allergy/AdvReac Type Severity Reaction Status Date / Time neomycin Allergy Unknown rash Verified 12/05/23 11:05 Sulfa (Sulfonamide Allergy Unknown Rash Verified 12/05/23 11:05 Antibiotics) castor oil AdvReac Intermediate Nausea and Verified 12/05/23 11:05 Vomiting erythromycin base AdvReac Intermediate SHAKING, Verified 12/05/23 11:05 HEADACHE Home Medications Medication Instructions Recorded Confirmed Type levothyroxine 100 mcg tablet 100 mcg PO DAILY #90 tabs 10/17/22 12/04/23 Rx alendronate 70 mg tablet 70 mg PO WEEKLY 06/03/23 12/04/23 History bisacodyl 10 mg rectal suppository 10 mg RECTAL DAILY PRN Constipation 06/03/23 12/04/23 History (Dulcolax (bisacodyl)) amlodipine 5 mg tablet 5 mg PO QAM #90 tabs 06/27/23 12/04/23 Rx finasteride 5 mg tablet 5 mg PO QHS #90 tabs 06/27/23 12/04/23 Rx tamsulosin 0.4 mg capsule 0.8 mg PO DAILY #180 caps 06/27/23 12/04/23 Rx albuterol sulfate 90 mcg/actuation 1 puff inhalation Q4H PRN 08/18/23 12/04/23 Rx aerosol inhaler shortness of breath or wheezing #8.5 grams duloxetine 60 mg capsule,delayed 60 mg PO DAILY #30 caps 08/18/23 12/04/23 Rx release lidocaine 5 % topical patch 1 patch topical DAILY #15 ea 08/30/23 12/04/23 Rx (Lidoderm) Saccharomyces boulardii 250 mg 250 mg PO BID 11/22/23 12/04/23 History capsule aspirin 81 mg chewable tablet 81 mg PO DAILY 11/22/23 12/04/23 History benzonatate 200 mg capsule 200 mg PO TID 11/22/23 12/04/23 History budesonide 3 mg 3 mg PO DAILY 11/22/23 12/04/23 History capsule,delayed,extended release carbidopa 25 mg-levodopa 250 mg 1 tablet PO TID 11/22/23 12/04/23 History tablet carvedilol 3.125 mg tablet 3.125 mg PO BID 11/22/23 12/04/23 History dextran 70-hypromellose 0.1 %-0.3 1 drp EACH EYE Q12H PRN Dry Eyes 11/22/23 12/04/23 History % eye drops (Artificial Tears (dextran 70-hypromellose)) furosemide 20 mg tablet 20 mg PO DAILY 11/22/23 12/04/23 History gabapentin 300 mg capsule 300 mg PO TID 11/22/23 12/04/23 History loperamide 2 mg tablet 2 mg PO Q2H PRN Diarrhea 11/22/23 12/04/23 History magnesium hydroxide 400 mg/5 mL 30 ml PO HS PRN Constipation 11/22/23 12/04/23 History oral suspension (Milk of Magnesia) melatonin 3 mg tablet 3 mg PO HS Sleep 11/22/23 12/04/23 History omeprazole 20 mg capsule,delayed 20 mg PO DAILY 11/22/23 12/04/23 History release oxybutynin chloride 10 mg 10 mg PO DAILY 11/22/23 12/04/23 History tablet,extended release 24 hr sennosides 8.6 mg-docusate sodium 1 tab-cap PO BID PRN Constipation 11/22/23 12/04/23 History 50 mg tablet ferrous sulfate 325 mg (65 mg 325 mg PO DAILY #60 tabs 11/25/23 12/04/23 Rx iron) tablet,delayed release hydrocodone 5 mg-acetaminophen 325 1 tablet PO Q8H PRN pain #1 tablet 11/25/23 12/04/23 Rx mg tablet polyethylene glycol 3350 17 gram 17 g PO QAM #30 ea 11/25/23 12/04/23 Rx oral powder packet (Miralax) umeclidinium 62.5 mcg/actuation 1 inh inhalation DAILYRT #30 ea 11/25/23 12/04/23 Rx blister powder for inhalation (Incruse Ellipta) amoxicillin 875 mg-potassium 1 tablet PO Q12H 7 days #14 tabs 12/04/23 Rx clavulanate 125 mg tablet atorvastatin 80 mg tablet 80 mg PO HS 12/04/23 12/04/23 History cefuroxime axetil 500 mg tablet 500 mg PO BID 12/04/23 12/04/23 History diphenhydramine HCl 25 mg capsule 25 mg PO TID PRN Itching 12/04/23 12/04/23 History (Allergy (diphenhydramine)) ma
--- NOTE | 2023-12-05 11:59 | P.PNIM_ITS ---
Progress Note: A&P Assessment and Plan (1) Hematuria: Qualifiers: Hematuria type: unspecified type Qualified Code(s): R31.9 - Hematuria, unspecified Code(s): R31.9 - Hematuria, unspecified Status: Acute Assessment and Plan: * Likely related to suspected urinary tract infection and exacerbated by aspirin use. He had recent negative cystoscopy 11/20/2023. Catheter is draining well at this time and urine is free of clots. Continue to irrigate catheter prn to ensure draining well. Aspirin is on hold at this time. * 12/05: Overnight lower abd pain, catheter irrigated by nursing and produced clots, then approx 1L of bloody urine. Nursing stated urology is aware of issue. Urology following. * Monitor H/H (2) Urinary retention: Code(s): R33.9 - Retention of urine, unspecified Status: Acute Assessment and Plan: * Ongoing issue. He had an indwelling strauss for many months. He failed a void trial 10/2023. Plan to continue with senior care indwelling catheter. May benefit from urodynamic testing as an outpatient per urology * Hx of BPH- continue home medications * 12/05: Strauss in place- bloody at this time. Urology following and we appreciate recommendation for further care (3) UTI (urinary tract infection): Qualifiers: Hematuria presence: with hematuria Urinary tract infection type: acute cystitis Qualified Code(s): N30.01 - Acute cystitis with hematuria Code(s): N39.0 - Urinary tract infection, site not specified Status: Suspected Assessment and Plan: * UA abnormal, concerning for infection. Urine culture is pending. Continue empiric antibiotics while awaiting culture results * Zosyn * 12/05: Urine cultures pending. Continue Abx (4) Colitis: Code(s): K52.9 - Noninfective gastroenteritis and colitis, unspecified Status: Acute Assessment and Plan: * CT scan shows inflammation in the sigmoid colon * Had had diarrhea intermittently for some time * GI Consulted- Dr Ziegler to preform colonoscopy 12/05 * Clear diet now, NPO at 0000 * 12/04: Patient completed bowel prep for colonoscopy today. (5) Foreign body in colon: Qualifiers: Encounter type: initial encounter Qualified Code(s): T18.4XXA - Foreign body in colon, initial encounter Code(s): T18.4XXA - Foreign body in colon, initial encounter Status: Acute Assessment and Plan: * CT scan shows:IMPRESSION: * 1. Mild wall thickening of the sigmoid colon, consistent with colitis. * 2. 3.0 cm curvilinear density in the sigmoid colon, which may be an ingested bone. * GI Consulted- Dr Ziegler to preform colonoscopy 12/05, will attempt to remove foreign body if it has not passed with prep * Clear diet now, NPO at 0000 * 12/05: Patient completed bowel prep for colonoscopy today. Producing lots of stool still. If FB does not pass Dr. Ziegler to attempt removal with colonoscopy. (6) Acute on chronic anemia: Code(s): D64.9 - Anemia, unspecified Status: Acute Assessment and Plan: * Acute on Chronic * Stable at 9.0/29.4 * Monitor labs * 12/05: H/H - 8.8/28.5- Episode of increased hematuria overnight. Strauss irrigation. Continue to monitor (7) Benign prostatic hyperplasia with lower urinary tract symptoms: Qualifiers: Lower urinary tract symptom detail: urinary frequency Qualified Code(s): N40.1 - Benign prostatic hyperplasia with lower urinary tract symptoms; R35.0 - Frequency of micturition Code(s): N40.1 - Benign prostatic hyperplasia with lower urinary tract symptoms
--- NOTE | 2023-12-05 11:59 | PM.IMPN ---
Progress Note: A&P Assessment and Plan (1) Hematuria: Qualifiers: Hematuria type: unspecified type Qualified Code(s): R31.9 - Hematuria, unspecified Code(s): R31.9 - Hematuria, unspecified Status: Acute Assessment and Plan: Likely related to suspected urinary tract infection and exacerbated by aspirin use. He had recent negative cystoscopy 11/20/2023. Catheter is draining well at this time and urine is free of clots. Continue to irrigate catheter prn to ensure draining well. Aspirin is on hold at this time. 12/05: Overnight lower abd pain, catheter irrigated by nursing and produced clots, then approx 1L of bloody urine. Nursing stated urology is aware of issue. Urology following. Monitor H/H (2) Urinary retention: Code(s): R33.9 - Retention of urine, unspecified Status: Acute Assessment and Plan: Ongoing issue. He had an indwelling strauss for many months. He failed a void trial 10/2023. Plan to continue with long-term indwelling catheter. May benefit from urodynamic testing as an outpatient per urology Hx of BPH- continue home medications 12/05: Strauss in place- bloody at this time. Urology following and we appreciate recommendation for further care (3) UTI (urinary tract infection): Qualifiers: Hematuria presence: with hematuria Urinary tract infection type: acute cystitis Qualified Code(s): N30.01 - Acute cystitis with hematuria Code(s): N39.0 - Urinary tract infection, site not specified Status: Suspected Assessment and Plan: UA abnormal, concerning for infection. Urine culture is pending. Continue empiric antibiotics while awaiting culture results Zosyn 12/05: Urine cultures pending. Continue Abx (4) Colitis: Code(s): K52.9 - Noninfective gastroenteritis and colitis, unspecified Status: Acute Assessment and Plan: CT scan shows inflammation in the sigmoid colon Had had diarrhea intermittently for some time GI Consulted- Dr Ziegler to preform colonoscopy 12/05 Clear diet now, NPO at 0000 12/04: Patient completed bowel prep for colonoscopy today. (5) Foreign body in colon: Qualifiers: Encounter type: initial encounter Qualified Code(s): T18.4XXA - Foreign body in colon, initial encounter Code(s): T18.4XXA - Foreign body in colon, initial encounter Status: Acute Assessment and Plan: CT scan shows:IMPRESSION: 1. Mild wall thickening of the sigmoid colon, consistent with colitis. 2. 3.0 cm curvilinear density in the sigmoid colon, which may be an ingested bone. GI Consulted- Dr Ziegler to preform colonoscopy 12/05, will attempt to remove foreign body if it has not passed with prep Clear diet now, NPO at 0000 12/05: Patient completed bowel prep for colonoscopy today. Producing lots of stool still. If FB does not pass Dr. Ziegler to attempt removal with colonoscopy. (6) Acute on chronic anemia: Code(s): D64.9 - Anemia, unspecified Status: Acute Assessment and Plan: Acute on Chronic Stable at 9.0/29.4 Monitor labs 12/05: H/H - 8.8/28.5- Episode of increased hematuria overnight. Strauss irrigation. Continue to monitor (7) Benign prostatic hyperplasia with lower urinary tract symptoms: Qualifiers: Lower urinary tract symptom detail: urinary frequency Qualified Code(s): N40.1 - Benign prostatic hyperplasia with lower urinary tract symptoms; R35.0 - Frequency of micturition Code(s): N40.1 - Benign prostatic hyperplasia with lower urinary tract symptoms Status: Acute Assessment and Plan: Chronic hx- Indwelling strauss long-term Continue home medications finasteride, tamsulosin (8) Parkinson disease: Code(s): G20 - Parkinson's disease Status: Acute Assessment and Plan: Hx: Tremor noted. Continue home medication carbidopa/levodopa Time Spent With Patient Time with patient: 15 - 25 minutes Subjective Date/time see
--- NOTE | 2023-12-05 12:22 | WPDUROPN2 ---
Progress Note: A&P Assessment and Plan (1) Hematuria: Qualifiers: Hematuria type: unspecified type Qualified Code(s): R31.9 - Hematuria, unspecified Code(s): R31.9 - Hematuria, unspecified Status: Acute Assessment and Plan: Likely related to urinary tract infection and exacerbated by aspirin use. He had recent negative cystoscopy 11/20/2023. Irrigated catheter at bedside today with return of few small clots. Urine draining clear-light pink following. Continue to irrigate catheter q shift to ensure draining well. Aspirin is on hold at this time. (2) Urinary retention: Code(s): R33.9 - Retention of urine, unspecified Status: Acute Assessment and Plan: Ongoing issue. He had an indwelling strauss for many months. He failed a void trial 10/2023. Plan to continue with custodial indwelling catheter. May benefit from urodynamic testing as an outpatient (3) UTI (urinary tract infection): Qualifiers: Hematuria presence: with hematuria Urinary tract infection type: acute cystitis Qualified Code(s): N30.01 - Acute cystitis with hematuria Code(s): N39.0 - Urinary tract infection, site not specified Status: Suspected Assessment and Plan: Urine culture with growth of E. coli. Continue antibiotics tailored to urine culture Subjective Subjective Date/Time Seen: 12/05/23 12:22 Interval history: Florencio is doing well today. He reports no concerns. Strauss catheter is draining dark red urine. He denies pelvic pain, suprapubic pain, flank pain, or back pain. Hemoglobin remaining stable at 8.8. Review of Systems Review of Systems: All systems reviewed & are unremarkable except as noted in HPI and below Exam Narrative: General: Awake, alert, comfortable, no acute distress HEENT: Normocephalic, atraumatic, sclerae anicteric Respiratory: Normal respiratory effort, no accessory muscle use Abdomen: Nondistended, soft, nontender : strauss catheter draining dark red urine without clots Skin: Normal coloration, warm and dry Neurologic: No focal neuro deficits noted Psychiatric: Appropriate mood and affect, judgment and insight intact Objective Data Vital Signs Vital Signs: Vital Signs - 24 hr 12/04/23 14:00 12/04/23 17:28 12/04/23 22:00 Temperature 98.6 F 98.1 F Pulse Rate 59 L 63 55 L Respiratory Rate 18 20 Blood Pressure 118/52 L 103/49 L Pulse Oximetry 98 99 Oxygen Delivery 12/05/23 06:00 12/05/23 08:00 12/05/23 09:13 Temperature 97.3 F L Pulse Rate 57 L 60 60 Respiratory Rate 21 H Blood Pressure 123/59 L 128/64 Pulse Oximetry 100 Oxygen Delivery 12/05/23 09:26 12/05/23 11:08 12/05/23 12:09 Temperature 98.5 F Pulse Rate 62 60 58 L Respiratory Rate 20 20 20 Blood Pressure 134/62 104/45 L Pulse Oximetry 98 100 Oxygen Delivery Room Air Room Air 12/05/23 12:19 Temperature Pulse Rate 59 L Respiratory Rate 14 Blood Pressure 104/45 L Pulse Oximetry 100 Oxygen Delivery Room Air Intake/Output Intake/Output: Intake & Output 12/02/23 12/03/23 12/04/23 12/05/23 23:59 23:59 23:59 23:59 Intake Total 2720 50 Output Total 2650 1600 Balance 70 -1550 Meds/Results Medications: Active Medications Generic Name Dose Route Start Last Admin Trade Name Freq PRN Reason Stop Dose Admin Hydrocodone Bitart/Acetaminophen 1 tab 12/04/23 07:48 12/05/23 06:39 Hydrocodone/Acetaminophen (*Crx) 5-325 Mg Tablet PO 1 tab Q8H PRN Administration pain Albuterol 1 puff 12/04/23 07:48 Albuterol Sulfate (*Sp) Aerosol 1 Puff INHALATION Q4H PRN shortness of breath or wheezing Alendronate Sodium 70 mg 12/09/23 09:00 Alendronate Sodium 70 Mg Tablet PO WEEKLY TENISHA Amlodipine Besylate 5 mg 12/04/23 09:00 12/05/23 09:12 Amlodipine Besylate 5 Mg Tablet PO 5 mg QAM TENISHA Administration Artificial Tears 1 drop 12/04/23 07:48 Artificial Tears Ophth Soln 1
[2023-12-05] MEDS: oxyBUTYnin CHLORIDE XL 5 MG TAB.ER.24 10 MG PO (12:48)
[2023-12-05] MEDS: TAMSULOSIN HCL 0.4 MG CAPSULE 0.8 MG PO (12:48)
[2023-12-05] MEDS: BENZONATATE 100 MG CAPSULE 200 MG PO ×2 (12:48→17:05)
[2023-12-05] MEDS: FERROUS SULFATE 325 MG TABLET DR PO (12:48)
[2023-12-05] MEDS: DULoxetine HCL 60 MG CAPSULE.DR PO (12:49)
[2023-12-05] MEDS: PANTOPRAZOLE 40 MG TABLET PO (12:49)
[2023-12-05] MEDS: FUROSEMIDE 20 MG TABLET PO (12:49)
[2023-12-05] MEDS: SACCHAROMYCES BOULARDII 250 MG CAPSULE PO (17:05)
[2023-12-05] MEDS: diphenhydrAMINE HCl CAP 25 MG CAPSULE PO (17:07)
[2023-12-05] MEDS: MELATONIN 3 MG TABLET PO (20:25)
[2023-12-05] MEDS: FINASTERIDE 5 MG TABLET PO (20:25)
[2023-12-05] MEDS: ATORVASTATIN 40 MG TABLET 80 MG PO (20:25)
[2023-12-06] MEDS: diphenhydrAMINE HCl CAP 25 MG CAPSULE PO ×2 (01:49→21:18)
[2023-12-06] MEDS: PIPERACILLN/TAZ 3.375GM/NS50ML 3.375 GM/50 ML BAG IVPB ×2 (01:49→09:08)
[2023-12-06] MEDS: HYDROcodone/acetaminophen (*CRX) 5-325 MG TABLET 1 TAB PO ×2 (04:24→17:33)
[2023-12-06] MEDS: LEVOTHYROXINE SODIUM 100 MCG TABLET PO (04:24)
[2023-12-06 04:32] VITALS: BP 115/57; PULSE 60; RESP 18; TEMP 36.7; O2SAT 99
[2023-12-06 06:27] LABS: Alanine Aminotransferase 7 U/L (6-50); Albumin Level 2.8 g/dL (3.5-5.1); Alkaline Phosphatase 54 U/L (38-126); Anion Gap 7 mmol/L (8-16); Aspartate Amino Transferase 21 U/L (17-59); Bilirubin,Total 0.6 mg/dL (0.2-1.3); Blood Urea Nitrogen 17 mg/dL (9-20); Calcium 7.8 mg/dL (8.4-10.2); Carbon Dioxide 24 mmol/L (22-30); Chloride 101 mmol/L (98-107); Estimated CRCL calculation 51 ml/min; Estimated Glomerular Filt Rate > 60; Glucose 102 mg/dL (65-110); Potassium 3.7 mmol/L (3.4-5.0); Sodium 132 mmol/L (137-145)
[2023-12-06 06:45] LABS: Hematocrit 25.1 % (42.0-52.0); Hemoglobin 7.9 g/dL (14.0-18.0); Mean Corpuscular HGB Conc 31.5 g/dl (32-36); Mean Corpuscular Hemoglobin 25.9 pg (26-34); Mean Corpuscular Volume 82.3 fl (80-100); Mean Platelet Volume 9.2 fl (7.4-10.4); Platelet Count Result 179 k/mm3 (150-375); Red Blood Count 3.05 M/mm3 (4.6-6.20); Red Cell Distribution Width 17.3 % (11.5-14.5); White Blood Count 6.8 K/mm3 (4.5-10.0)
[2023-12-06] MEDS: UMECLIDINIUM BROMIDE 62.5 MCG ELLIPTA 1 PUFF INHALATION (08:10)
[2023-12-06] MEDS: SACCHAROMYCES BOULARDII 250 MG CAPSULE PO ×2 (08:51→17:29)
[2023-12-06] MEDS: oxyBUTYnin CHLORIDE XL 5 MG TAB.ER.24 10 MG PO (08:51)
[2023-12-06] MEDS: FERROUS SULFATE 325 MG TABLET DR PO (08:51)
[2023-12-06] MEDS: PANTOPRAZOLE 40 MG TABLET PO (08:52)
[2023-12-06] MEDS: TAMSULOSIN HCL 0.4 MG CAPSULE 0.8 MG PO (08:52)
[2023-12-06] MEDS: BENZONATATE 100 MG CAPSULE 200 MG PO ×3 (08:52→17:29)
[2023-12-06] MEDS: amLODIPine BESYLATE 5 MG TABLET PO (08:52)
[2023-12-06 08:53] VITALS: PULSE 62
[2023-12-06] MEDS: BUDESONIDE 3 MG CAP.SR.24H PO (08:53)
[2023-12-06] MEDS: carvediloL 3.125 MG TABLET PO ×2 (08:53→17:29)
[2023-12-06] MEDS: FUROSEMIDE 20 MG TABLET PO (08:53)
[2023-12-06] MEDS: CARBIDOPA/LEVODOPA 25/250 MG TABLET 1 TABLET PO ×3 (08:53→17:30)
[2023-12-06] MEDS: GABAPENTIN 300 MG CAPSULE PO ×3 (08:53→17:30)
[2023-12-06] MEDS: DULoxetine HCL 60 MG CAPSULE.DR PO (08:54)
--- NOTE | 2023-12-06 09:59 | WPDUROPN2 ---
Progress Note: A&P Assessment and Plan (1) Hematuria: Qualifiers: Hematuria type: unspecified type Qualified Code(s): R31.9 - Hematuria, unspecified Code(s): R31.9 - Hematuria, unspecified Status: Acute Assessment and Plan: Likely related to urinary tract infection and exacerbated by aspirin use. He had recent negative cystoscopy 11/20/2023. CT this admission showed solitary L kidney with no stones or masses. Urine is light red. I switched him out to 3way strauss and have initiated CBI to try to stop the hematuria. Urine culture shows yeast. Spoke with hospitalist- stopping zosyn and starting fluconazole for fungal UTI since he has hemorrhagic cystitis. Will wean CBI to off if urine remains clear. Keep aspirin on hold. Follow daily H/H. (2) Urinary retention: Code(s): R33.9 - Retention of urine, unspecified Status: Acute Assessment and Plan: Ongoing issue. He had an indwelling strauss for many months. He failed a void trial 10/2023. Plan to continue with care home indwelling catheter. May benefit from urodynamic testing as an outpatient (3) UTI (urinary tract infection): Qualifiers: Hematuria presence: with hematuria Urinary tract infection type: acute cystitis Qualified Code(s): N30.01 - Acute cystitis with hematuria Code(s): N39.0 - Urinary tract infection, site not specified Status: Suspected Assessment and Plan: Urine culture with yeast. Since having hemorrhagic cystitis, stopping zosyn and starting fluconazole- hospitalist will speak with pharmacy to ensure correct dosage. Subjective Subjective Date/Time Seen: 12/06/23 09:59 Interval history: No complaints. Urine intermittently remains bloody. No clot obstruction Review of Systems Review of Systems: All systems reviewed & are unremarkable except as noted in HPI and below Exam Narrative: General: Awake, alert, comfortable, no acute distress HEENT: Normocephalic, atraumatic, sclerae anicteric Respiratory: Normal respiratory effort, no accessory muscle use Abdomen: Nondistended, soft, nontender : strauss catheter draining red urine without clots- removed current strauss and placed [address] Hand irrigated strauss with return of few small clots. Started CBI. Urine is clear on midclick CBI Skin: Normal coloration, warm and dry Neurologic: No focal neuro deficits noted Psychiatric: Appropriate mood and affect, judgment and insight intact Objective Data Vital Signs Vital Signs: Vital Signs - 24 hr 12/05/23 11:08 12/05/23 12:09 12/05/23 12:19 Temperature 36.9 C Pulse Rate 60 58 L 59 L Respiratory Rate 20 20 14 Blood Pressure 134/62 104/45 L 104/45 L Pulse Oximetry 98 100 100 Oxygen Delivery Room Air Room Air Room Air 12/05/23 12:29 12/05/23 14:00 12/05/23 17:03 Temperature 36.6 C Pulse Rate 59 L 58 L 61 Respiratory Rate 16 18 Blood Pressure 118/57 L 126/56 L Pulse Oximetry 99 100 Oxygen Delivery Room Air 12/05/23 20:37 12/06/23 04:32 12/06/23 08:53 Temperature 36.9 C 36.7 C Pulse Rate 61 60 62 Respiratory Rate 18 18 Blood Pressure 136/67 115/57 L Pulse Oximetry 99 99 Oxygen Delivery Intake/Output Intake/Output: Intake & Output 12/03/23 12/04/23 12/05/23 12/06/23 23:59 23:59 23:59 23:59 Intake Total 2720 1875 670 Output Total 2650 2950 450 Balance 70 -1075 220 Meds/Results Medications: Active Medications Generic Name Dose Route Start Last Admin Trade Name Freq PRN Reason Stop Dose Admin Hydrocodone Bitart/Acetaminophen 1 tab 12/04/23 07:48 12/06/23 04:24 Hydrocodone/Acetaminophen (*Crx) 5-325 Mg Tablet PO 1 tab Q8H PRN Administration pain Albuterol 1 puff 12/04/23 07:48 Albuterol Sulfate (*Sp) Aerosol 1 Puff INHALATION Q4H PRN shortness of breath or wheezing Alendronate Sodium 70 mg 12/09/23 09:00 Alendronate Sodium 70 Mg Tablet PO WEEKLY [facility] Amlodipi
[2023-12-06] MEDS: FLUCONAZOLE 100 MG TABLET PO (13:02)
[2023-12-06 14:10] VITALS: BP 127/52; PULSE 57; RESP 16; TEMP 36.4; O2SAT 100
--- NOTE | 2023-12-06 17:22 | P.PNIM_ITS ---
Progress Note: A&P Assessment and Plan (1) Hematuria: Qualifiers: Hematuria type: unspecified type Qualified Code(s): R31.9 - Hematuria, unspecified Code(s): R31.9 - Hematuria, unspecified Status: Acute Assessment and Plan: * Likely related to suspected urinary tract infection and exacerbated by aspirin use. He had recent negative cystoscopy 11/20/2023. Catheter is draining well at this time and urine is free of clots. Continue to irrigate catheter prn to ensure draining well. Aspirin is on hold at this time. * 12/05: Overnight lower abd pain, catheter irrigated by nursing and produced clots, then approx 1L of bloody urine. Nursing stated urology is aware of issue. Urology following. * Monitor H/H * 12/06: Strauss catheter present with bloody urine * H/H - 7.07/21.1- Continue to monitor and transfuse as appropriate * Urology at bedside- to initiate CBI for hemorrhagic cystitis. (2) Urinary retention: Code(s): R33.9 - Retention of urine, unspecified Status: Acute Assessment and Plan: * Ongoing issue. He had an indwelling strauss for many months. He failed a void trial 10/2023. Plan to continue with detention indwelling catheter. May bene fit from urodynamic testing as an outpatient per urology * Hx of BPH- continue home medications * 12/05: Strauss in place- bloody at this time. Urology following and we appreciate recommendation for further care * 12/06- Urology at beside. Initiating CBI. Nursing staff to document accurate output volumes (3) UTI (urinary tract infection): Qualifiers: Hematuria presence: with hematuria Urinary tract infection type: acute cystitis Qualified Code(s): N30.01 - Acute cystitis with hematuria Code(s): N39.0 - Urinary tract infection, site not specified Status: Suspected Assessment and Plan: * UA abnormal, concerning for infection. Urine culture is pending. Continue empiric antibiotics while awaiting culture results * Zosyn * 12/05: Urine cultures pending. Continue Abx * 12/06: Urine culture resulted- Katia tropicalis. IV abx Zosyn discontinued * Urology ordered fluconazole for yeast. (4) Colitis: Code(s): K52.9 - Noninfective gastroenteritis and colitis, unspecified Status: Acute Assessment and Plan: * CT scan shows inflammation in the sigmoid colon * Had had diarrhea intermittently for some time * GI Consulted- Dr Ziegler to preform colonoscopy 12/05 * Clear diet now, NPO at 0000 * 12/04: Patient completed bowel prep for colonoscopy today. * 12/06- Colonoscopy preformed- GI Dr Ziegler noted transverse colon polyps and diverticulosis without perforation or abscess without bleeding. * Patient expressed decreased abdominal pain at this time of assessment. * IV abx Zosyn discontinued (5) Foreign body in colon: Qualifiers: Encounter type: initial encounter Qualified Code(s): T18.4XXA - Foreign body in colon, initial encounter Code(s): T18.4XXA - Foreign body in colon, initial encounter Status: Acute Assessment and Plan: * CT scan shows:IMPRESSION: * 1. Mild wall thickening of the sigmoid colon, consistent with colitis. * 2. 3.0 cm curvilinear density in the sigmoid colon, which may be an ingested bone. * GI Consulted- Dr Ziegler to preform colonoscopy 12/05, will attempt to remove foreign body if it has not passed with prep * Clear diet now, NPO at 0000 * 12/05: Patient completed bowel prep for colonoscopy today. Producing lots of stool still. If FB does not pass Dr. Ziegler to attempt removal with colonoscopy. * 12/06: Colonoscopy prefo
--- NOTE | 2023-12-06 17:22 | PM.IMPN ---
Progress Note: A&P Assessment and Plan (1) Hematuria: Qualifiers: Hematuria type: unspecified type Qualified Code(s): R31.9 - Hematuria, unspecified Code(s): R31.9 - Hematuria, unspecified Status: Acute Assessment and Plan: Likely related to suspected urinary tract infection and exacerbated by aspirin use. He had recent negative cystoscopy 11/20/2023. Catheter is draining well at this time and urine is free of clots. Continue to irrigate catheter prn to ensure draining well. Aspirin is on hold at this time. 12/05: Overnight lower abd pain, catheter irrigated by nursing and produced clots, then approx 1L of bloody urine. Nursing stated urology is aware of issue. Urology following. Monitor H/H 12/06: Strauss catheter present with bloody urine H/H - 7.07/21.1- Continue to monitor and transfuse as appropriate Urology at bedside- to initiate CBI for hemorrhagic cystitis. (2) Urinary retention: Code(s): R33.9 - Retention of urine, unspecified Status: Acute Assessment and Plan: Ongoing issue. He had an indwelling strauss for many months. He failed a void trial 10/2023. Plan to continue with [facility] indwelling catheter. May benefit from urodynamic testing as an outpatient per urology Hx of BPH- continue home medications 12/05: Strauss in place- bloody at this time. Urology following and we appreciate recommendation for further care 12/06- Urology at beside. Initiating CBI. Nursing staff to document accurate output volumes (3) UTI (urinary tract infection): Qualifiers: Hematuria presence: with hematuria Urinary tract infection type: acute cystitis Qualified Code(s): N30.01 - Acute cystitis with hematuria Code(s): N39.0 - Urinary tract infection, site not specified Status: Suspected Assessment and Plan: UA abnormal, concerning for infection. Urine culture is pending. Continue empiric antibiotics while awaiting culture results Zosyn 12/05: Urine cultures pending. Continue Abx 12/06: Urine culture resulted- Katia tropicalis. IV abx Zosyn discontinued Urology ordered fluconazole for yeast. (4) Colitis: Code(s): K52.9 - Noninfective gastroenteritis and colitis, unspecified Status: Acute Assessment and Plan: CT scan shows inflammation in the sigmoid colon Had had diarrhea intermittently for some time GI Consulted- Dr Ziegler to preform colonoscopy 12/05 Clear diet now, NPO at 0000 12/04: Patient completed bowel prep for colonoscopy today. 12/06- Colonoscopy preformed- GI Dr Ziegler noted transverse colon polyps and diverticulosis without perforation or abscess without bleeding. Patient expressed decreased abdominal pain at this time of assessment. IV abx Zosyn discontinued (5) Foreign body in colon: Qualifiers: Encounter type: initial encounter Qualified Code(s): T18.4XXA - Foreign body in colon, initial encounter Code(s): T18.4XXA - Foreign body in colon, initial encounter Status: Acute Assessment and Plan: CT scan shows:IMPRESSION: 1. Mild wall thickening of the sigmoid colon, consistent with colitis. 2. 3.0 cm curvilinear density in the sigmoid colon, which may be an ingested bone. GI Consulted- Dr Zieglre to preform colonoscopy 12/05, will attempt to remove foreign body if it has not passed with prep Clear diet now, NPO at 0000 12/05: Patient completed bowel prep for colonoscopy today. Producing lots of stool still. If FB does not pass Dr. Ziegler to attempt removal with colonoscopy. 12/06: Colonoscopy preformed by GI Dr Ziegler. Patient expressed decreased abdominal pain (6) Acute on chronic anemia: Code(s): D64.9 - Anemia, unspecified Status: Acute Assessment and Plan: Acute on Chronic Stable at 9.0/29.4 Monitor labs 12/05: H/H - 8.8/28.5- Episode of increased hematuria overnight. Strauss irrigation. Continue to monitor 12/06: H/H - 7.9/25.1- Continue to monitor- Transfus
[2023-12-06 17:29] VITALS: PULSE 64
[2023-12-06] MEDS: HYDROCORTISONE 2.5% CREAM 30 GM TUBE 1 APPLIC TOPICAL (17:37)
[2023-12-06] MEDS: DICLOFENAC SODIUM 1% 100 GM GEL (*BKC) 1 APPLIC TOPICAL (17:37)
--- NOTE | 2023-12-06 19:43 | PC.NURSE ---
On 12/06/23, the student, Bal Regalado, provided care and completed [facility] documentation on this patient. I have reviewed the student's documentation and agree with the findings.
[2023-12-06 20:00] VITALS: PULSE 58; RESP 16; O2SAT 97
[2023-12-06 21:08] VITALS: BP 102/47; PULSE 58; RESP 16; TEMP 36.8; O2SAT 97
[2023-12-06] MEDS: FINASTERIDE 5 MG TABLET PO (21:18)
[2023-12-06] MEDS: MELATONIN 3 MG TABLET PO (21:18)
[2023-12-06] MEDS: ATORVASTATIN 40 MG TABLET 80 MG PO (21:18)
[2023-12-07 02:59] LABS: Hematocrit 24.7 % (42.0-52.0); Hematocrit 25.1 % (42.0-52.0); Hemoglobin 7.5 g/dL (14.0-18.0); Hemoglobin 7.7 g/dL (14.0-18.0); Mean Corpuscular HGB Conc 30.4 g/dl (32-36); Mean Corpuscular Hemoglobin 24.8 pg (26-34); Mean Corpuscular Volume 81.8 fl (80-100); Mean Platelet Volume 9.9 fl (7.4-10.4); Platelet Count Result 195 k/mm3 (150-375); Red Blood Count 3.02 M/mm3 (4.6-6.20); Red Cell Distribution Width 17.4 % (11.5-14.5); White Blood Count 6.4 K/mm3 (4.5-10.0)
[2023-12-07 03:22] LABS: Alanine Aminotransferase 7 U/L (6-50); Albumin Level 2.8 g/dL (3.5-5.1); Alkaline Phosphatase 61 U/L (38-126); Anion Gap 4 mmol/L (8-16); Aspartate Amino Transferase 15 U/L (17-59); Bilirubin,Total 0.4 mg/dL (0.2-1.3); Blood Urea Nitrogen 17 mg/dL (9-20); Calcium 8.1 mg/dL (8.4-10.2); Carbon Dioxide 28 mmol/L (22-30); Chloride 98 mmol/L (98-107); Estimated CRCL calculation 51 ml/min; Estimated Glomerular Filt Rate > 60; Glucose 122 mg/dL (65-110); Potassium 4.1 mmol/L (3.4-5.0); Sodium 130 mmol/L (137-145)
[2023-12-07] MEDS: LEVOTHYROXINE SODIUM 100 MCG TABLET PO (05:05)
[2023-12-07] MEDS: HYDROCORTISONE 2.5% CREAM 30 GM TUBE 1 APPLIC TOPICAL ×2 (05:05→18:18)
[2023-12-07 06:19] VITALS: BP 147/62; PULSE 55; RESP 18; TEMP 36.4; O2SAT 98
[2023-12-07] MEDS: PANTOPRAZOLE 40 MG TABLET PO (08:46)
[2023-12-07] MEDS: DULoxetine HCL 60 MG CAPSULE.DR PO (08:46)
[2023-12-07] MEDS: BENZONATATE 100 MG CAPSULE 200 MG PO ×3 (08:46→18:10)
[2023-12-07 08:47] VITALS: PULSE 64
[2023-12-07] MEDS: SACCHAROMYCES BOULARDII 250 MG CAPSULE PO ×2 (08:47→18:11)
[2023-12-07] MEDS: FERROUS SULFATE 325 MG TABLET DR PO (08:47)
[2023-12-07] MEDS: carvediloL 3.125 MG TABLET PO ×2 (08:47→18:09)
[2023-12-07] MEDS: CARBIDOPA/LEVODOPA 25/250 MG TABLET 1 TABLET PO ×3 (08:47→18:10)
[2023-12-07] MEDS: FUROSEMIDE 20 MG TABLET PO (08:47)
[2023-12-07] MEDS: GABAPENTIN 300 MG CAPSULE PO ×3 (08:47→18:10)
[2023-12-07] MEDS: oxyBUTYnin CHLORIDE XL 5 MG TAB.ER.24 10 MG PO (08:47)
[2023-12-07] MEDS: BUDESONIDE 3 MG CAP.SR.24H PO (08:47)
[2023-12-07] MEDS: TAMSULOSIN HCL 0.4 MG CAPSULE 0.8 MG PO (08:47)
[2023-12-07] MEDS: amLODIPine BESYLATE 5 MG TABLET PO (08:48)
[2023-12-07] MEDS: FLUCONAZOLE 100 MG TABLET PO (08:48)
[2023-12-07] MEDS: UMECLIDINIUM BROMIDE 62.5 MCG ELLIPTA 1 PUFF INHALATION (08:51)
[2023-12-07] MEDS: HYDROcodone/acetaminophen (*CRX) 5-325 MG TABLET 1 TAB PO ×2 (08:56→21:17)
--- NOTE | 2023-12-07 10:59 | WPDUROPN2 ---
Progress Note: A&P Assessment and Plan (1) Hematuria: Qualifiers: Hematuria type: unspecified type Qualified Code(s): R31.9 - Hematuria, unspecified Code(s): R31.9 - Hematuria, unspecified Status: Acute Assessment and Plan: Likely related to urinary tract infection and exacerbated by aspirin use. He had recent negative cystoscopy 11/20/2023. CT this admission showed solitary L kidney with no stones or masses. Urine is light red. Hematuria has resolved on slow-click CBI and H/H is now stable. Will have nursing try to wean CBI to off. Urine culture shows andriy tropicalis and was switched to fluconazole yesterday. Keep aspirin on hold. Follow daily H/H. (2) Urinary retention: Code(s): R33.9 - Retention of urine, unspecified Status: Acute Assessment and Plan: Ongoing issue. He had an indwelling strauss for many months. He failed a void trial 10/2023. Plan to continue with [employer] indwelling catheter. May benefit from urodynamic testing as an outpatient (3) UTI (urinary tract infection): Qualifiers: Hematuria presence: with hematuria Urinary tract infection type: acute cystitis Qualified Code(s): N30.01 - Acute cystitis with hematuria Code(s): N39.0 - Urinary tract infection, site not specified Status: Suspected Assessment and Plan: Urine culture with andriy tropicalis- d/c'd zosyn yesterday and started fluconazole. I asked the hospitalist to speak with pharmacy to ensure correct dosage. Subjective Subjective Date/Time Seen: 12/07/23 10:59 Interval history: Doing better. Hematuria has resolved on slow drip CBI. Review of Systems Review of Systems: All systems reviewed & are unremarkable except as noted in HPI and below Exam Narrative: General: Awake, alert, comfortable, no acute distress HEENT: Normocephalic, atraumatic, sclerae anicteric Respiratory: Normal respiratory effort, no accessory muscle use Abdomen: Nondistended, soft, nontender : 3way catheter in place draining clear on slow-click CBI. No clots. Skin: Normal coloration, warm and dry Neurologic: No focal neuro deficits noted Psychiatric: Appropriate mood and affect, judgment and insight intact Objective Data Vital Signs Vital Signs: Vital Signs - 24 hr 12/06/23 14:10 12/06/23 17:29 12/06/23 21:08 Temperature 36.4 C 36.8 C Pulse Rate 57 L 64 58 L Respiratory Rate 16 16 Blood Pressure 127/52 L 102/47 L Pulse Oximetry 100 97 Oxygen Delivery 12/06/23 20:00 12/07/23 06:19 12/07/23 08:47 Temperature 36.4 C Pulse Rate 58 L 55 L 64 Respiratory Rate 16 18 Blood Pressure 147/62 H Pulse Oximetry 97 98 Oxygen Delivery Room Air Intake/Output Intake/Output: Intake & Output 12/04/23 12/05/23 12/06/23 12/07/23 23:59 23:59 23:59 23:59 Intake Total 2720 1875 1360 490 Output Total 2650 2950 640 1700 Balance 70 -1075 720 -1210 Meds/Results Medications: Active Medications Generic Name Dose Route Start Last Admin Trade Name Freq PRN Reason Stop Dose Admin Hydrocodone Bitart/Acetaminophen 1 tab 12/04/23 07:48 12/07/23 08:56 Hydrocodone/Acetaminophen (*Crx) 5-325 Mg Tablet PO 1 tab Q8H PRN Administration pain Albuterol 1 puff 12/04/23 07:48 Albuterol Sulfate (*Sp) Aerosol 1 Puff INHALATION Q4H PRN shortness of breath or wheezing Alendronate Sodium 70 mg 12/09/23 09:00 Alendronate Sodium 70 Mg Tablet PO WEEKLY T[facility] Amlodipine Besylate 5 mg 12/04/23 09:00 12/07/23 08:48 Amlodipine Besylate 5 Mg Tablet PO 5 mg QAM TENISHA Administration Artificial Tears 1 drop 12/04/23 07:48 Artificial Tears Ophth Soln 15 Ml Bottle EACH EYE Q12H PRN Dry Eyes Atorvastatin Calcium 80 mg 12/04/23 21:00 12/06/23 21:18 Atorvastatin 40 Mg Tablet PO 80 mg HS TENISHA Administration Benzonatate 200 mg 12/04/23 09:00 12/07/23 08:46 Benzonatate 100 Mg Capsule
[2023-12-07 13:58] VITALS: BP 112/50; PULSE 53; RESP 18; TEMP 36.7; O2SAT 99
--- NOTE | 2023-12-07 16:02 | P.PNIM_ITS ---
Progress Note: A&P Assessment and Plan (1) Hematuria: Qualifiers: Hematuria type: unspecified type Qualified Code(s): R31.9 - Hematuria, unspecified Code(s): R31.9 - Hematuria, unspecified Status: Acute Assessment and Plan: * Likely related to suspected urinary tract infection and exacerbated by aspirin use. He had recent negative cystoscopy 11/20/2023. Catheter is draining well at this time and urine is free of clots. Continue to irrigate catheter prn to ensure draining well. Aspirin is on hold at this time. * 12/05: Overnight lower abd pain, catheter irrigated by nursing and produced clots, then approx 1L of bloody urine. Nursing stated urology is aware of issue. Urology following. * Monitor H/H * 12/06: Strauss catheter present with bloody urine * H/H - 7.9/25.1- Continue to monitor and transfuse as appropriate * Urology at bedside- to initiate CBI for hemorrhagic cystitis. * 12/07: Strauss with CBI in place- [employer] tinge in catheter bag * H/H 7.5/24.7-Continue to monitor- transfuse as appropriate * Urology to wean CBI (2) Urinary retention: Code(s): R33.9 - Retention of urine, unspecified Status: Acute Assessment and Plan: * Ongoing issue. He had an indwelling strauss for many months. He failed a void trial 10/2023. Plan to continue with prison indwelling catheter. May benefit from urodynamic testing as an outpatient per urology * Hx of BPH- continue home medications * 12/05: Strauss in place- bloody at this time. Urology following and we appreciate recommendation for further care * 12/06- Urology at beside. Initiating CBI. Nursing staff to document accurate output volumes * 12/07: CBI in place, draining freely, [employer] tinge noted to strauss catheter bag. Urology to wean CBI- continue to monitor output (3) UTI (urinary tract infection): Qualifiers: Hematuria presence: with hematuria Urinary tract infection type: acute cystitis Qualified Code(s): N30.01 - Acute cystitis with hematuria Code(s): N39.0 - Urinary tract infection, site not specified Status: Suspected Assessment and Plan: * UA abnormal, concerning for infection. Urine culture is pending. Continue empiric antibiotics while awaiting culture results * Zosyn * 12/05: Urine cultures pending. Continue Abx * 12/06: Urine culture resulted- Katia tropicalis. IV abx Zosyn discontinued * Urology ordered fluconazole for yeast. (4) Colitis: Code(s): K52.9 - Noninfective gastroenteritis and colitis, unspecified Status: Acute Assessment and Plan: * CT scan shows inflammation in the sigmoid colon * Had had diarrhea intermittently for some time * GI Consulted- Dr Ziegler to preform colonoscopy 12/05 * Clear diet now, NPO at 0000 * 12/04: Patient completed bowel prep for colonoscopy today. * 12/06- Colonoscopy preformed- GI Dr Ziegler noted transverse colon polyps and diverticulosis without perforation or abscess without bleeding. * Patient expressed decreased abdominal pain at this time of assessment. * IV abx Zosyn discontinued * 12/07: No further abdominal pain per patient statement (5) Foreign body in colon: Qualifiers: Encounter type: initial encounter Qualified Code(s): T18.4XXA - Foreign body in colon, initial encounter Code(s): T18.4XXA - Foreign body in colon, initial encounter Status: Acute Assessment and Plan: * CT scan shows:IMPRESSION: * 1. Mild wall thickening of the sigmoid colon, consistent with colitis. * 2. 3.0 cm curvilinear density in the sigmoid colon, which may be an ingested bone. * GI Consulted- Dr Ziegler
--- NOTE | 2023-12-07 16:02 | PM.IMPN ---
Progress Note: A&P Assessment and Plan (1) Hematuria: Qualifiers: Hematuria type: unspecified type Qualified Code(s): R31.9 - Hematuria, unspecified Code(s): R31.9 - Hematuria, unspecified Status: Acute Assessment and Plan: Likely related to suspected urinary tract infection and exacerbated by aspirin use. He had recent negative cystoscopy 11/20/2023. Catheter is draining well at this time and urine is free of clots. Continue to irrigate catheter prn to ensure draining well. Aspirin is on hold at this time. 12/05: Overnight lower abd pain, catheter irrigated by nursing and produced clots, then approx 1L of bloody urine. Nursing stated urology is aware of issue. Urology following. Monitor H/H 12/06: Strauss catheter present with bloody urine H/H - 7.9/25.1- Continue to monitor and transfuse as appropriate Urology at bedside- to initiate CBI for hemorrhagic cystitis. 12/07: Strauss with CBI in place- [place] tinge in catheter bag H/H 7.5/24.7-Continue to monitor- transfuse as appropriate Urology to wean CBI (2) Urinary retention: Code(s): R33.9 - Retention of urine, unspecified Status: Acute Assessment and Plan: Ongoing issue. He had an indwelling strauss for many months. He failed a void trial 10/2023. Plan to continue with long-term indwelling catheter. May benefit from urodynamic testing as an outpatient per urology Hx of BPH- continue home medications 12/05: Strauss in place- bloody at this time. Urology following and we appreciate recommendation for further care 12/06- Urology at beside. Initiating CBI. Nursing staff to document accurate output volumes 12/07: CBI in place, draining freely, [place] tinge noted to strauss catheter bag. Urology to wean CBI- continue to monitor output (3) UTI (urinary tract infection): Qualifiers: Hematuria presence: with hematuria Urinary tract infection type: acute cystitis Qualified Code(s): N30.01 - Acute cystitis with hematuria Code(s): N39.0 - Urinary tract infection, site not specified Status: Suspected Assessment and Plan: UA abnormal, concerning for infection. Urine culture is pending. Continue empiric antibiotics while awaiting culture results Zosyn 12/05: Urine cultures pending. Continue Abx 12/06: Urine culture resulted- Katia tropicalis. IV abx Zosyn discontinued Urology ordered fluconazole for yeast. (4) Colitis: Code(s): K52.9 - Noninfective gastroenteritis and colitis, unspecified Status: Acute Assessment and Plan: CT scan shows inflammation in the sigmoid colon Had had diarrhea intermittently for some time GI Consulted- Dr Ziegler to preform colonoscopy 12/05 Clear diet now, NPO at 0000 12/04: Patient completed bowel prep for colonoscopy today. 12/06- Colonoscopy preformed- GI Dr Ziegler noted transverse colon polyps and diverticulosis without perforation or abscess without bleeding. Patient expressed decreased abdominal pain at this time of assessment. IV abx Zosyn discontinued 12/07: No further abdominal pain per patient statement (5) Foreign body in colon: Qualifiers: Encounter type: initial encounter Qualified Code(s): T18.4XXA - Foreign body in colon, initial encounter Code(s): T18.4XXA - Foreign body in colon, initial encounter Status: Acute Assessment and Plan: CT scan shows:IMPRESSION: 1. Mild wall thickening of the sigmoid colon, consistent with colitis. 2. 3.0 cm curvilinear density in the sigmoid colon, which may be an ingested bone. GI Consulted- Dr Ziegler to preform colonoscopy 12/05, will attempt to remove foreign body if it has not passed with prep Clear diet now, NPO at 0000 12/05: Patient completed bowel prep for colonoscopy today. Producing lots of stool still. If FB does not pass Dr. Ziegler to attempt removal with colonoscopy. 12/06: Colonoscopy preformed by GI Dr Ziegler. Patient expressed decreased abdominal pain 12/07: no further
[2023-12-07 18:09] VITALS: PULSE 68
[2023-12-07] MEDS: DICLOFENAC SODIUM 1% 100 GM GEL (*BKC) 1 APPLIC TOPICAL (18:18)
--- NOTE | 2023-12-07 18:27 | PC.NURSE ---
On 12/07/23, the student, Bal Regalado, provided care and completed [facility] documentation on this patient. I have reviewed the student's documentation and agree with the findings.
[2023-12-07 20:00] VITALS: PULSE 68; RESP 18; O2SAT 99
[2023-12-07] MEDS: FINASTERIDE 5 MG TABLET PO (21:17)
[2023-12-07] MEDS: ATORVASTATIN 40 MG TABLET 80 MG PO (21:17)
[2023-12-07] MEDS: diphenhydrAMINE HCl CAP 25 MG CAPSULE PO (21:17)
[2023-12-07] MEDS: MELATONIN 3 MG TABLET PO (21:17)
[2023-12-07 22:00] VITALS: BP 126/52; PULSE 63; RESP 20; TEMP 36.5; O2SAT 98
[2023-12-07 23:12] LABS: Hematocrit 24.2 % (42.0-52.0); Hemoglobin 7.6 g/dL (14.0-18.0)
[2023-12-08] MEDS: DICLOFENAC SODIUM 1% 100 GM GEL (*BKC) 1 APPLIC TOPICAL (00:15)
[2023-12-08 05:53] LABS: Hematocrit 25.1 % (42.0-52.0); Hemoglobin 7.6 g/dL (14.0-18.0); Mean Corpuscular HGB Conc 30.3 g/dl (32-36); Mean Corpuscular Hemoglobin 25.1 pg (26-34); Mean Corpuscular Volume 82.8 fl (80-100); Mean Platelet Volume 10.3 fl (7.4-10.4); Platelet Count Result 193 k/mm3 (150-375); Red Blood Count 3.03 M/mm3 (4.6-6.20); Red Cell Distribution Width 17.2 % (11.5-14.5); White Blood Count 5.9 K/mm3 (4.5-10.0)
[2023-12-08] MEDS: HYDROcodone/acetaminophen (*CRX) 5-325 MG TABLET 1 TAB PO ×3 (05:54→21:39)
[2023-12-08] MEDS: LEVOTHYROXINE SODIUM 100 MCG TABLET PO (05:55)
[2023-12-08 06:00] VITALS: BP 116/57; PULSE 54; RESP 20; TEMP 36.7; O2SAT 98
[2023-12-08 06:06] LABS: Alanine Aminotransferase 8 U/L (6-50); Albumin Level 2.7 g/dL (3.5-5.1); Alkaline Phosphatase 69 U/L (38-126); Anion Gap 5 mmol/L (8-16); Aspartate Amino Transferase 16 U/L (17-59); Bilirubin,Total 0.4 mg/dL (0.2-1.3); Blood Urea Nitrogen 20 mg/dL (9-20); Calcium 8.1 mg/dL (8.4-10.2); Carbon Dioxide 27 mmol/L (22-30); Chloride 98 mmol/L (98-107); Estimated CRCL calculation 51 ml/min; Estimated Glomerular Filt Rate > 60; Glucose 111 mg/dL (65-110); Sodium 130 mmol/L (137-145)
[2023-12-08] MEDS: BENZONATATE 100 MG CAPSULE 200 MG PO ×3 (10:33→17:42)
[2023-12-08] MEDS: SACCHAROMYCES BOULARDII 250 MG CAPSULE PO ×2 (10:33→17:41)
[2023-12-08] MEDS: FUROSEMIDE 20 MG TABLET PO (10:33)
[2023-12-08] MEDS: BUDESONIDE 3 MG CAP.SR.24H PO (10:33)
[2023-12-08] MEDS: oxyBUTYnin CHLORIDE XL 5 MG TAB.ER.24 10 MG PO (10:33)
[2023-12-08] MEDS: UMECLIDINIUM BROMIDE 62.5 MCG ELLIPTA 1 PUFF INHALATION (10:33)
[2023-12-08] MEDS: PANTOPRAZOLE 40 MG TABLET PO (10:33)
[2023-12-08 10:34] VITALS: PULSE 60
[2023-12-08] MEDS: CARBIDOPA/LEVODOPA 25/250 MG TABLET 1 TABLET PO ×3 (10:34→17:42)
[2023-12-08] MEDS: TAMSULOSIN HCL 0.4 MG CAPSULE 0.8 MG PO (10:34)
[2023-12-08] MEDS: GABAPENTIN 300 MG CAPSULE PO ×3 (10:34→17:42)
[2023-12-08] MEDS: FLUCONAZOLE 100 MG TABLET PO (10:34)
[2023-12-08] MEDS: DULoxetine HCL 60 MG CAPSULE.DR PO (10:34)
[2023-12-08] MEDS: amLODIPine BESYLATE 5 MG TABLET PO (10:34)
[2023-12-08] MEDS: FERROUS SULFATE 325 MG TABLET DR PO (10:34)
[2023-12-08] MEDS: carvediloL 3.125 MG TABLET PO ×2 (10:34→17:41)
--- NOTE | 2023-12-08 10:40 | WPDUROPN2 ---
Progress Note: A&P Assessment and Plan (1) Hematuria: Qualifiers: Hematuria type: unspecified type Qualified Code(s): R31.9 - Hematuria, unspecified Code(s): R31.9 - Hematuria, unspecified Status: Acute Assessment and Plan: Likely related to urinary tract infection and exacerbated by aspirin use. He had recent negative cystoscopy 11/20/2023. CT this admission showed solitary L kidney with no stones or masses. Urine is clear yellow with CBI off. Hematuria has resolved. Aspirin remains on hold. Follow daily H/H. (2) Urinary retention: Code(s): R33.9 - Retention of urine, unspecified Status: Acute Assessment and Plan: Ongoing issue. He had an indwelling strauss for many months. He failed a void trial 10/2023. 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 May benefit from urodynamic testing as an outpatient (3) UTI (urinary tract infection): Qualifiers: Hematuria presence: with hematuria Urinary tract infection type: acute cystitis Qualified Code(s): N30.01 - Acute cystitis with hematuria Code(s): N39.0 - Urinary tract infection, site not specified Status: Suspected Assessment and Plan: Urine culture with andriy tropicalis. Continue fluconazole. Subjective Subjective Date/Time Seen: 12/08/23 10:40 Interval history: Florencio is doing well today. Reports no concerns. Urine is crystal clear off CBI. Review of Systems Review of Systems: All systems reviewed & are unremarkable except as noted in HPI and below Exam Narrative: General: Awake, alert, comfortable, no acute distress HEENT: Normocephalic, atraumatic, sclerae anicteric Respiratory: Normal respiratory effort, no accessory muscle use Abdomen: Nondistended, soft, nontender : 3-way catheter draining clear, light yellow urine off CBI Skin: Normal coloration, warm and dry Neurologic: No focal neuro deficits noted Psychiatric: Appropriate mood and affect, judgment and insight intact Objective Data Vital Signs Vital Signs: Vital Signs - 24 hr 12/07/23 13:58 12/07/23 18:09 12/07/23 20:00 Temperature 98.1 F Pulse Rate 53 L 68 68 Respiratory Rate 18 18 Blood Pressure 112/50 L Pulse Oximetry 99 99 Oxygen Delivery Room Air 12/07/23 22:00 12/08/23 06:00 12/08/23 10:34 Temperature 97.7 F 98.0 F Pulse Rate 63 54 L 60 Respiratory Rate 20 20 Blood Pressure 126/52 L 116/57 L Pulse Oximetry 98 98 Oxygen Delivery Intake/Output Intake/Output: Intake & Output 12/05/23 12/06/23 12/07/23 12/08/23 23:59 23:59 23:59 23:59 Intake Total 1875 1360 1440 940 Output Total 2950 640 2400 Balance -1075 720 -960 940 Meds/Results Medications: Active Medications Generic Name Dose Route Start Last Admin Trade Name Freq PRN Reason Stop Dose Admin Hydrocodone Bitart/Acetaminophen 1 tab 12/04/23 07:48 12/08/23 05:54 Hydrocodone/Acetaminophen (*Crx) 5-325 Mg Tablet PO 1 tab Q8H PRN Administration pain Albuterol 1 puff 12/04/23 07:48 Albuterol Sulfate (*Sp) Aerosol 1 Puff INHALATION Q4H PRN shortness of breath or wheezing Alendronate Sodium 70 mg 12/09/23 09:00 Alendronate Sodium 70 Mg Tablet PO WEEKLY TENISHA Amlodipine Besylate 5 mg 12/04/23 09:00 12/08/23 10:34 Amlodipine Besylate 5 Mg Tablet PO 5 mg QAM TENISHA Administration Artificial Tears 1 drop 12/04/23 07:48 Artificial Tears Ophth Soln 15 Ml Bottle EACH EYE Q12H PRN Dry Eyes Atorvastatin Calcium 80 mg 12/04/23 21:00 12/07/23 21:17 Atorvastatin 40 Mg Tablet PO 80 mg HS TENISHA Administration Benzonatate 200 mg 12/04/23 09:00 12/08/23 10:33 Benzonatate 100 Mg Capsule PO 200 mg TID TENISHA Administration Budesonide 3 mg 12/04/23 09:00 12/08/23 10:33 Budesonide 3 Mg Cap.Sr.24h PO 3 mg DAILY TENISHA Administration Carbidopa/Levodopa 1 tablet 12/04/23 09:00 12/08/23 10:34 Carbidopa/Levo
--- NOTE | 2023-12-08 10:48 | P.PNIM_ITS ---
Progress Note: A&P Assessment and Plan (1) Hematuria: Qualifiers: Hematuria type: unspecified type Qualified Code(s): R31.9 - Hematuria, unspecified Code(s): R31.9 - Hematuria, unspecified Status: Acute Assessment and Plan: * Likely related to suspected urinary tract infection and exacerbated by aspirin use. He had recent negative cystoscopy 11/20/2023. Catheter is draining well at this time and urine is free of clots. Continue to irrigate catheter prn to ensure draining well. Aspirin is on hold at this time. * 12/05: Overnight lower abd pain, catheter irrigated by nursing and produced clots, then approx 1L of bloody urine. Nursing stated urology is aware of issue. Urology following. * Monitor H/H * 12/06: Strauss catheter present with bloody urine * H/H - 7.9/25.1- Continue to monitor and transfuse as appropriate * Urology at bedside- to initiate CBI for hemorrhagic cystitis. * 12/07: Strauss with CBI in place- [place] tinge in catheter bag * H/H 7.5/24.7-Continue to monitor- transfuse as appropriate * Urology to wean CBI * 12/08- CBI off, urine clear- yellow. * H/H 7.6/25.1-Continue to monitor (2) Urinary retention: Code(s): R33.9 - Retention of urine, unspecified Status: Acute Assessment and Plan: * Ongoing issue. He had an indwelling strauss for many months. He failed a void trial 10/2023. Plan to continue with nursing home indwelling catheter. May benefit from urodynamic testing as an outpatient per urology * Hx of BPH- continue home medications * 12/05: Strauss in place- bloody at this time. Urology following and we appreciate recommendation for further care * 12/06- Urology at beside. Initiating CBI. Nursing staff to document accurate output volumes * 12/07: CBI in place, draining freely, [place] tinge noted to strauss catheter bag. Urology to wean CBI- continue to monitor output * 12/08: Strauss in place, draining freely. Will remain in place at discharge per urology (3) UTI (urinary tract infection): Qualifiers: Hematuria presence: with hematuria Urinary tract infection type: acute cystitis Qualified Code(s): N30.01 - Acute cystitis with hematuria Code(s): N39.0 - Urinary tract infection, site not specified Status: Suspected Assessment and Plan: * UA abnormal, concerning for infection. Urine culture is pending. Continue empiric antibiotics while awaiting culture results * Zosyn * 12/05: Urine cultures pending. Continue Abx * 12/06: Urine culture resulted- Katia tropicalis. IV abx Zosyn discontinued * Urology ordered fluconazole for yeast. (4) Colitis: Code(s): K52.9 - Noninfective gastroenteritis and colitis, unspecified Status: Acute Assessment and Plan: * CT scan shows inflammation in the sigmoid colon * Had had diarrhea intermittently for some time * GI Consulted- Dr Ziegler to preform colonoscopy 12/05 * Clear diet now, NPO at 0000 * 12/04: Patient completed bowel prep for colonoscopy today. * 12/06- Colonoscopy preformed- GI Dr Ziegler noted transverse colon polyps and diverticulosis without perforation or abscess without bleeding. * Patient expressed decreased abdominal pain at this time of assessment. * IV abx Zosyn discontinued * 12/07: No further abdominal pain per patient statement (5) Foreign body in colon: Qualifiers: Encounter type: initial encounter Qualified Code(s): T18.4XXA - Foreign body in colon, initial encounter Code(s): T18.4XXA - Foreign body in colon, initial encounter Status: Acute Assessment and Plan: * CT scan shows:IMPRESSION: * 1.
--- NOTE | 2023-12-08 10:48 | PM.IMPN ---
Progress Note: A&P Assessment and Plan (1) Hematuria: Qualifiers: Hematuria type: unspecified type Qualified Code(s): R31.9 - Hematuria, unspecified Code(s): R31.9 - Hematuria, unspecified Status: Acute Assessment and Plan: Likely related to suspected urinary tract infection and exacerbated by aspirin use. He had recent negative cystoscopy 11/20/2023. Catheter is draining well at this time and urine is free of clots. Continue to irrigate catheter prn to ensure draining well. Aspirin is on hold at this time. 2: Overnight lower abd pain, catheter irrigated by nursing and produced clots, then approx 1L of bloody urine. Nursing stated urology is aware of issue. Urology following. Monitor H/H 12/06: Strauss catheter present with bloody urine H/H - 7.9/25.1- Continue to monitor and transfuse as appropriate Urology at bedside- to initiate CBI for hemorrhagic cystitis. 12/07: Strauss with CBI in place- [place] tinge in catheter bag H/H 7.5/24.7-Continue to monitor- transfuse as appropriate Urology to wean CBI 12/08- CBI off, urine clear- yellow. H/H 7.6/25.1-Continue to monitor (2) Urinary retention: Code(s): R33.9 - Retention of urine, unspecified Status: Acute Assessment and Plan: Ongoing issue. He had an indwelling strauss for many months. He failed a void trial 10/2023. 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 May benefit from urodynamic testing as an outpatient per urology Hx of BPH- continue home medications 12/05: Strauss in place- bloody at this time. Urology following and we appreciate recommendation for further care 12/06- Urology at beside. Initiating CBI. Nursing staff to document accurate output volumes 12/07: CBI in place, draining freely, [place] tinge noted to strauss catheter bag. Urology to wean CBI- continue to monitor output 12/08: Strauss in place, draining freely. Will remain in place at discharge per urology (3) UTI (urinary tract infection): Qualifiers: Hematuria presence: with hematuria Urinary tract infection type: acute cystitis Qualified Code(s): N30.01 - Acute cystitis with hematuria Code(s): N39.0 - Urinary tract infection, site not specified Status: Suspected Assessment and Plan: UA abnormal, concerning for infection. Urine culture is pending. Continue empiric antibiotics while awaiting culture results Zosyn 12/05: Urine cultures pending. Continue Abx 12/06: Urine culture resulted- Katia tropicalis. IV abx Zosyn discontinued Urology ordered fluconazole for yeast. (4) Colitis: Code(s): K52.9 - Noninfective gastroenteritis and colitis, unspecified Status: Acute Assessment and Plan: CT scan shows inflammation in the sigmoid colon Had had diarrhea intermittently for some time GI Consulted- Dr Ziegler to preform colonoscopy 12/05 Clear diet now, NPO at 0000 12/04: Patient completed bowel prep for colonoscopy today. 12/06- Colonoscopy preformed- GI Dr Ziegler noted transverse colon polyps and diverticulosis without perforation or abscess without bleeding. Patient expressed decreased abdominal pain at this time of assessment. IV abx Zosyn discontinued 12/07: No further abdominal pain per patient statement (5) Foreign body in colon: Qualifiers: Encounter type: initial encounter Qualified Code(s): T18.4XXA - Foreign body in colon, initial encounter Code(s): T18.4XXA - Foreign body in colon, initial encounter Status: Acute Assessment and Plan: CT scan shows:IMPRESSION: 1. Mild wall thickening of the sigmoid colon, consistent with colitis. 2. 3.0 cm curvilinear density in the sigmoid colon, which may be an ingested bone. GI Consulted- Dr Ziegler to preform colonoscopy 12/05, will attempt to remove foreign body if it has not passed with prep Clear diet now, NPO at 0000 12/05: Patient completed bowel prep for colonoscopy today. Producing lots of stool still. If FB does
[2023-12-08] MEDS: diphenhydrAMINE HCl CAP 25 MG CAPSULE PO ×2 (13:54→21:38)
[2023-12-08 15:47] VITALS: BP 134/60; PULSE 64; RESP 18; TEMP 36.4; O2SAT 98
[2023-12-08 17:41] VITALS: PULSE 60
[2023-12-08 20:00] VITALS: PULSE 60; RESP 18; O2SAT 98
[2023-12-08] MEDS: MELATONIN 3 MG TABLET PO (21:38)
[2023-12-08] MEDS: ATORVASTATIN 40 MG TABLET 80 MG PO (21:38)
[2023-12-08] MEDS: FINASTERIDE 5 MG TABLET PO (21:39)
[2023-12-08 22:00] VITALS: BP 115/52; PULSE 55; RESP 18; TEMP 36.4; O2SAT 96
[2023-12-09] MEDS: HYDROcodone/acetaminophen (*CRX) 5-325 MG TABLET 1 TAB PO ×2 (05:14→14:56)
[2023-12-09] MEDS: LEVOTHYROXINE SODIUM 100 MCG TABLET PO (05:14)
[2023-12-09 06:00] VITALS: BP 137/61; PULSE 50; RESP 20; TEMP 36.6; O2SAT 98
[2023-12-09 06:59] LABS: Hemoglobin 7.9 g/dL (14.0-18.0); Mean Corpuscular HGB Conc 30.4 g/dl (32-36); Mean Corpuscular Hemoglobin 25.3 pg (26-34); Mean Corpuscular Volume 83.3 fl (80-100); Mean Platelet Volume 10.2 fl (7.4-10.4); Platelet Count Result 205 k/mm3 (150-375); Red Blood Count 3.12 M/mm3 (4.6-6.20); Red Cell Distribution Width 17.7 % (11.5-14.5); White Blood Count 6.2 K/mm3 (4.5-10.0)
[2023-12-09 07:10] LABS: Alanine Aminotransferase 7 U/L (6-50); Albumin Level 3.1 g/dL (3.5-5.1); Alkaline Phosphatase 64 U/L (38-126); Anion Gap 4 mmol/L (8-16); Aspartate Amino Transferase 16 U/L (17-59); Bilirubin,Total 0.4 mg/dL (0.2-1.3); Blood Urea Nitrogen 22 mg/dL (9-20); Calcium 8.5 mg/dL (8.4-10.2); Carbon Dioxide 30 mmol/L (22-30); Chloride 99 mmol/L (98-107); Estimated CRCL calculation 47 ml/min; Estimated Glomerular Filt Rate > 60; Glucose 95 mg/dL (65-110); Potassium 4.2 mmol/L (3.4-5.0); Sodium 133 mmol/L (137-145)
[2023-12-09] MEDS: UMECLIDINIUM BROMIDE 62.5 MCG ELLIPTA 1 PUFF INHALATION (07:23)
[2023-12-09 07:27] VITALS: O2SAT 97
[2023-12-09 08:33] VITALS: PULSE 61
[2023-12-09] MEDS: oxyBUTYnin CHLORIDE XL 5 MG TAB.ER.24 10 MG PO (08:33)
[2023-12-09] MEDS: PANTOPRAZOLE 40 MG TABLET PO (08:33)
[2023-12-09] MEDS: CARBIDOPA/LEVODOPA 25/250 MG TABLET 1 TABLET PO ×3 (08:33→17:26)
[2023-12-09] MEDS: carvediloL 3.125 MG TABLET PO ×2 (08:33→17:26)
[2023-12-09] MEDS: GABAPENTIN 300 MG CAPSULE PO ×3 (08:33→17:26)
[2023-12-09] MEDS: DULoxetine HCL 60 MG CAPSULE.DR PO (08:33)
[2023-12-09] MEDS: FLUCONAZOLE 100 MG TABLET PO (08:34)
[2023-12-09] MEDS: FUROSEMIDE 20 MG TABLET PO (08:34)
[2023-12-09] MEDS: amLODIPine BESYLATE 5 MG TABLET PO (08:34)
[2023-12-09] MEDS: FERROUS SULFATE 325 MG TABLET DR PO (08:34)
[2023-12-09] MEDS: TAMSULOSIN HCL 0.4 MG CAPSULE 0.8 MG PO (08:34)
[2023-12-09] MEDS: SACCHAROMYCES BOULARDII 250 MG CAPSULE PO ×2 (08:34→17:26)
[2023-12-09] MEDS: ALENDRONATE SODIUM 70 MG TABLET PO (08:34)
[2023-12-09] MEDS: BUDESONIDE 3 MG CAP.SR.24H PO (08:34)
[2023-12-09] MEDS: BENZONATATE 100 MG CAPSULE 200 MG PO ×3 (08:34→17:26)
[2023-12-09] MEDS: HYDROCORTISONE 2.5% CREAM 30 GM TUBE 1 APPLIC TOPICAL (08:36)
--- NOTE | 2023-12-09 09:36 | WPDUROPN2 ---
Progress Note: A&P Assessment and Plan (1) Hematuria: Qualifiers: Hematuria type: unspecified type Qualified Code(s): R31.9 - Hematuria, unspecified Code(s): R31.9 - Hematuria, unspecified Status: Acute Assessment and Plan: Likely related to urinary tract infection and exacerbated by aspirin use. He had recent negative cystoscopy 11/20/2023. CT this admission showed solitary L kidney with no stones or masses. Urine remains clear yellow off CBI. Hematuria has resolved. Aspirin remains on hold. Hgb remaining stable; continue to follow daily H&H. (2) Urinary retention: Code(s): R33.9 - Retention of urine, unspecified Status: Acute Assessment and Plan: Ongoing issue. He had an indwelling strauss for many months. He failed a void trial 10/2023. Plan to continue with senior care indwelling catheter. May benefit from urodynamic testing as an outpatient (3) UTI (urinary tract infection): Qualifiers: Hematuria presence: with hematuria Urinary tract infection type: acute cystitis Qualified Code(s): N30.01 - Acute cystitis with hematuria Code(s): N39.0 - Urinary tract infection, site not specified Status: Suspected Assessment and Plan: Urine culture with andriy tropicalis. Continue fluconazole. Subjective Subjective Date/Time Seen: 12/09/23 09:36 Interval history: Florencio is feeling improved today. He offers no complaints. His Strauss catheter is draining clear yellow urine. He is tolerating his diet. He denies nausea, vomiting, fever, or chills. He is afebrile and his vital signs are stable. Review of Systems Review of Systems: All systems reviewed & are unremarkable except as noted in HPI and below Exam Narrative: General: Awake, alert, comfortable, no acute distress HEENT: Normocephalic, atraumatic, sclerae anicteric Respiratory: Normal respiratory effort, no accessory muscle use Abdomen: Nondistended, soft, nontender : Strauss catheter draining clear, light yellow urine Skin: Normal coloration, warm and dry Neurologic: No focal neuro deficits noted Psychiatric: Appropriate mood and affect, judgment and insight intact Objective Data Vital Signs Vital Signs: Vital Signs - 24 hr 12/08/23 10:34 12/08/23 15:47 12/08/23 17:41 Temperature 97.5 F L Pulse Rate 60 64 60 Respiratory Rate 18 Blood Pressure 134/60 Pulse Oximetry 98 Oxygen Delivery 12/08/23 20:00 12/08/23 22:00 12/09/23 07:27 Temperature 97.5 F L Pulse Rate 60 55 L Respiratory Rate 18 18 Blood Pressure 115/52 L Pulse Oximetry 98 96 97 Oxygen Delivery Room Air Room Air 12/09/23 08:33 12/09/23 06:00 Temperature 97.8 F Pulse Rate 61 50 L Respiratory Rate 20 Blood Pressure 137/61 Pulse Oximetry 98 Oxygen Delivery Intake/Output Intake/Output: Intake & Output 12/06/23 12/07/23 12/08/23 12/09/23 23:59 23:59 23:59 23:59 Intake Total 1360 1440 1970 500 Output Total 640 2400 1600 900 Balance 720 -960 370 -400 Meds/Results Medications: Active Medications Generic Name Dose Route Start Last Admin Trade Name Freq PRN Reason Stop Dose Admin Hydrocodone Bitart/Acetaminophen 1 tab 12/04/23 07:48 12/09/23 05:14 Hydrocodone/Acetaminophen (*Crx) 5-325 Mg Tablet PO 1 tab Q8H PRN Administration pain Albuterol 1 puff 12/04/23 07:48 Albuterol Sulfate (*Sp) Aerosol 1 Puff INHALATION Q4H PRN shortness of breath or wheezing Alendronate Sodium 70 mg 12/09/23 09:00 12/09/23 08:34 Alendronate Sodium 70 Mg Tablet PO 70 mg WEEKLY TENISHA Administration Amlodipine Besylate 5 mg 12/04/23 09:00 12/09/23 08:34 Amlodipine Besylate 5 Mg Tablet PO 5 mg QAM TENISAH Administration Artificial Tears 1 drop 12/04/23 07:48 Artificial Tears Ophth Soln 15 Ml Bottle EACH EYE Q12H PRN Dry Eyes Atorvastatin Calcium 80 mg 12/04/23 21:00 12/08/23 21:38 Atorvastatin 40 Mg
[2023-12-09 14:11] VITALS: BP 132/55; PULSE 58; RESP 18; TEMP 36.9; O2SAT 98
--- NOTE | 2023-12-09 15:31 | P.DS_ITS ---
DS: Admitting Diagnosis Discharge Date 12/09/23 Admitting Diagnosis UTI, Hematuria, Colitis DS: Discharge Diagnosis Discharge Diagnosis (1) Hematuria: Qualifiers: Hematuria type: unspecified type Qualified Code(s): R31.9 - Hematuria, unspecified Code(s): R31.9 - Hematuria, unspecified Status: Acute Assessment and Plan: * Likely related to suspected urinary tract infection and exacerbated by aspirin use. He had recent negative cystoscopy 11/20/2023. Catheter is draining well at this time and urine is free of clots. Continue to irrigate catheter prn to ensure draining well. Aspirin is on hold at this time. * 12/05: Overnight lower abd pain, catheter irrigated by nursing and produced clots, then approx 1L of bloody urine. Nursing stated urology is aware of issue. Urology following. * Monitor H/H * 12/06: Strauss catheter present with bloody urine * H/H - 7.9/25.1- Continue to monitor and transfuse as appropriate * Urology at bedside- to initiate CBI for hemorrhagic cystitis. * 12/07: Strauss with CBI in place- [place] tinge in catheter bag * H/H 7.5/24.7-Continue to monitor- transfuse as appropriate * Urology to wean CBI * 12/08- CBI off, urine clear- yellow. * H/H 7./25.1-Continue to monitor * 12/09- Strauss draining clear- yellow * H/H- 7./- Stable * Ok to discharge per urology (2) Urinary retention: Code(s): R33.9 - Retention of urine, unspecified Status: Acute Assessment and Plan: * Ongoing issue. He had an indwelling strauss for many months. He failed a void trial 10/2023. Plan to continue with joint terminal attack controller indwelling catheter. May benefit from urodynamic testing as an outpatient per urology * Hx of BPH- continue home medications * 12/05: Strauss in place- bloody at this time. Urology following and we appreciate recommendation for further care * 12/06- Urology at beside. Initiating CBI. Nursing staff to document accurate output volumes * 12/07: CBI in place, draining freely, [place] tinge noted to strauss catheter bag. Urology to wean CBI- continue to monitor output * 12/08: Strauss in place, draining freely. Will remain in place at discharge per urology * 12/09: Per urology, strauss will remain in place. He can follow up in office (3) UTI (urinary tract infection): Qualifiers: Hematuria presence: with hematuria Urinary tract infection type: acute cystitis Qualified Code(s): N30.01 - Acute cystitis with hematuria Code(s): N39.0 - Urinary tract infection, site not specified Status: Suspected Assessment and Plan: * UA abnormal, concerning for infection. Urine culture is pending. Continue empiric antibiotics while awaiting culture results * Zosyn * 12/05: Urine cultures pending. Continue Abx * 12/06: Urine culture resulted- Katia tropicalis. IV abx Zosyn discontinued * Urology ordered fluconazole for yeast. * 12/09: Fluconazole 100mg PO daily to complete 2 weeks of dosing (12/19/23) (4) Colitis: Code(s): K52.9 - Noninfective gastroenteritis and colitis, unspecified Status: Acute Assessment and Plan: * CT scan shows inflammation in the sigmoid colon * Had had diarrhea intermittently for some time * GI Consulted- Dr Ziegler to preform colonoscopy 12/05 * Clear diet now, NPO at 0000 * 12/04: Patient completed bowel prep for colonoscopy today. * 12/06- Colonoscopy preformed- GI Dr Ziegler noted transverse colon polyps and diverticulosis without perforation or abscess without bleeding. * Patient expressed decreased abdominal pain at this time of assessment. * IV abx Zosyn discontinued * 12/07: No
--- NOTE | 2023-12-09 15:31 | PM.DS ---
DS: Admitting Diagnosis Discharge Date 12/09/23 Admitting Diagnosis UTI, Hematuria, Colitis DS: Discharge Diagnosis Discharge Diagnosis (1) Hematuria: Qualifiers: Hematuria type: unspecified type Qualified Code(s): R31.9 - Hematuria, unspecified Code(s): R31.9 - Hematuria, unspecified Status: Acute Assessment and Plan: Likely related to suspected urinary tract infection and exacerbated by aspirin use. He had recent negative cystoscopy 11/20/2023. Catheter is draining well at this time and urine is free of clots. Continue to irrigate catheter prn to ensure draining well. Aspirin is on hold at this time. 12/05: Overnight lower abd pain, catheter irrigated by nursing and produced clots, then approx 1L of bloody urine. Nursing stated urology is aware of issue. Urology following. Monitor H/H 12/06: Strauss catheter present with bloody urine H/H - 7.07/21.1- Continue to monitor and transfuse as appropriate Urology at bedside- to initiate CBI for hemorrhagic cystitis. 12/07: Strauss with CBI in place- [place] tinge in catheter bag H/H 7.524.7-Continue to monitor- transfuse as appropriate Urology to wean CBI 12/08- CBI off, urine clear- yellow. H/H 7.04/20.1-Continue to monitor 12/09- Strauss draining clear- yellow H/H- 7.07/22- Stable Ok to discharge per urology (2) Urinary retention: Code(s): R33.9 - Retention of urine, unspecified Status: Acute Assessment and Plan: Ongoing issue. He had an indwelling strauss for many months. He failed a void trial 10/2023. 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 May benefit from urodynamic testing as an outpatient per urology Hx of BPH- continue home medications 12/05: Strauss in place- bloody at this time. Urology following and we appreciate recommendation for further care 12/06- Urology at beside. Initiating CBI. Nursing staff to document accurate output volumes 12/07: CBI in place, draining freely, [place] tinge noted to strauss catheter bag. Urology to wean CBI- continue to monitor output 12/08: Strauss in place, draining freely. Will remain in place at discharge per urology 12/09: Per urology, strauss will remain in place. He can follow up in office (3) UTI (urinary tract infection): Qualifiers: Hematuria presence: with hematuria Urinary tract infection type: acute cystitis Qualified Code(s): N30.01 - Acute cystitis with hematuria Code(s): N39.0 - Urinary tract infection, site not specified Status: Suspected Assessment and Plan: UA abnormal, concerning for infection. Urine culture is pending. Continue empiric antibiotics while awaiting culture results Zosyn 12/05: Urine cultures pending. Continue Abx 12/06: Urine culture resulted- Katia tropicalis. IV abx Zosyn discontinued Urology ordered fluconazole for yeast. 12/09: Fluconazole 100mg PO daily to complete 2 weeks of dosing (12/19/23) (4) Colitis: Code(s): K52.9 - Noninfective gastroenteritis and colitis, unspecified Status: Acute Assessment and Plan: CT scan shows inflammation in the sigmoid colon Had had diarrhea intermittently for some time GI Consulted- Dr Ziegler to preform colonoscopy 12/05 Clear diet now, NPO at 0000 12/04: Patient completed bowel prep for colonoscopy today. 12/06- Colonoscopy preformed- GI Dr Ziegler noted transverse colon polyps and diverticulosis without perforation or abscess without bleeding. Patient expressed decreased abdominal pain at this time of assessment. IV abx Zosyn discontinued 12/07: No further abdominal pain per patient statement 12/09: OK to discharge per GI. Can follow up in office (5) Foreign body in colon: Qualifiers: Encounter type: initial encounter Qualified Code(s): T18.4XXA - Foreign body in colon, initial encounter Code(s): T18.4XXA - Foreign body in colon, initial encounter Status: Acute Assessment and Plan: CT scan shows:IMPRESSION:
[2023-12-09 17:26] VITALS: PULSE 58
[2023-12-09 20:33] VITALS: BP 126/50; PULSE 61; RESP 20; TEMP 36.8; O2SAT 98
[2023-12-09] MEDS: ATORVASTATIN 40 MG TABLET 80 MG PO (20:36)
[2023-12-09] MEDS: FINASTERIDE 5 MG TABLET PO (20:36)
== END 2023-12-09 20:45 | DRG 699 ==
LOC: ANHED 12-04 02:07 → ANH3MEDSUR 12-04 03:06 → ANH3MED 12-04 03:51 → ANH3MEDSUR 12-10 11:32 → ANH3MED 12-10 11:32
PROVIDERS: Internal Medicine Gastroenterology; Nurse Practitioner Family; Admitting Provider Internal Medicine; Emergency Provider Physician Assistant; PCP Family Medicine; Visit Provider Internal Medicine
PROC: 0DJD8ZZ Inspection of Lower Intestinal Tract, Via Natural or Artificial Opening Endoscopic (ICD-10-PCS; CPT 45378; principal; 2023-12-05 13:00)
DX: T83.511A Infection and inflammatory reaction due to indwelling urethral catheter, initial encounter (principal); B37.49 Other urogenital candidiasis; C91.10 Chronic lymphocytic leukemia of B-cell type not having achieved remission; N18.30 Chronic kidney disease, stage 3 unspecified; I12.9 Hypertensive chronic kidney disease with stage 1 through stage 4 chronic kidney disease, or unspecified chronic kidney disease; K52.9 Noninfective gastroenteritis and colitis, unspecified; J62.8 Pneumoconiosis due to other dust containing silica; J44.9 Chronic obstructive pulmonary disease, unspecified; D64.9 Anemia, unspecified; T18.4XXA Foreign body in colon, initial encounter; K63.5 Polyp of colon; E03.9 Hypothyroidism, unspecified; K57.30 Diverticulosis of large intestine without perforation or abscess without bleeding; K21.9 Gastro-esophageal reflux disease without esophagitis; N40.1 Benign prostatic hyperplasia with lower urinary tract symptoms; R33.8 Other retention of urine; G20.A1 Parkinson's disease without dyskinesia, without mention of fluctuations; G47.33 Obstructive sleep apnea (adult) (pediatric); M17.0 Bilateral primary osteoarthritis of knee; F41.9 Anxiety disorder, unspecified; F32.A Depression, unspecified; Z79.82 Long term (current) use of aspirin; Z90.5 Acquired absence of kidney; Z85.528 Personal history of other malignant neoplasm of kidney; Z99.3 Dependence on wheelchair
CPT/HCPCS: 36415; 74176; 80053; 81001; 85014; 85018; 85025; 85027; 86850; 86900; 86901; 87086; 88305; 94640; 96361; 96365; 96375; 96376; 99285; A9270; G0378; J1596; J2371; J2405; J2543; J2704; J7030; J7120

== ENCOUNTER 2023-12-17 20:57 | Emergency (ER) | payer MEDICARE, SELFPAY ==
--- NOTE | ~2023-12-17 | CT_ITS ---
EXAMINATION: CTA brain carotid DATE: 12/17/2023 22:23 INDICATION: Headache. TECHNIQUE: Computed tomographic angiography (CTA) of the head was performed without and with 100 mL O mnipaque-350 intravenous contrast. CTA of the neck was performed with intravenous contrast. Automated exposure control and iterative reconstruction technique were employed. The dose-length product was 2 033.73 mGy-cm. Maximum intensity projection and volume rendered 3D-reconstructions were created by tracy garcia technologist on a separate workstation. COMPARISON: None. FINDINGS: HEAD CTA: There are old infarcts in the cerebellum bilaterally. There are scattered areas of low atte nuation in the cerebral white matter. There is no intracranial hemorrhage, acute infarction, or abnor mal intracranial mass lesion. The ventricles are normal in size. The mastoid air cells are normal. Th ere are likely changes of ocular lens replacement surgeries. There is mild mucosal thickening in the ethmoid sinuses. Right vertebral artery is dominant. There is no significant stenosis of basilar tova ry or the posterior cerebral arteries. There is no significant stenosis of the intracranial internal carotid arteries or anterior or middle cerebral arteries. There is a 6 mm saccular aneurysm of anteri or communicating artery. NECK CTA: There is a small right pleural effusion. There are no pathologically enlarged lymph nodes. There is plaque in the proximal internal carotid arteries. There is 32% stenosis of the proximal righ t internal carotid artery relative to normal distal artery lumen diameter (NASCET criteria). There is 5% stenosis of the proximal left internal carotid artery relative to normal distal artery lumen diam eter. There is mild cervical spondylosis. IMPRESSION: 1. Old infarcts in the cerebellum. 2. Mild nonspecific cerebral white matter disease, which likely represents chronic small vessel ische latisha disease. 3. 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 4. 32% stenosis of the proximal right internal carotid artery relative to normal distal artery lumen diameter (NASCET criteria). 5. 5% stenosis of the proximal left internal carotid artery relative to normal distal artery lumen di ameter. 6. Small right pleural effusion. Reviewed, dictated and finalized at location E. CIATE DIRECTOR OF NURSING IMPRESSION: 1. Old infarcts in the cerebellum. 2. Mild nonspecific cerebral white matter disease, which likely represents chalk cutter sandra small vessel ischemic disease. 3. 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 4. 32% stenosis of the proximal right internal carotid artery relative to abigail l distal artery lumen diameter (NASCET criteria). 5. 5% stenosis of the proximal left internal carotid artery relative to normal distal artery lumen diameter. 6. Small right pleural effusion.
[2023-12-17 20:56] VITALS: BP 113/62; PULSE 58; RESP 19; TEMP 36.5; O2SAT 97
[2023-12-17 21:09] VITALS: BP 113/62; PULSE 57; RESP 18; TEMP 36.5; O2SAT 99
--- NOTE | 2023-12-17 21:53 | ED.HA ---
HPI - Headache General Chief Complaint: Headache Stated Complaint: headache Time Seen by Provider: 12/17/23 21:52 Source: patient and RN notes reviewed History of Present Illness HPI Narrative: 83 yo presents with a headache x2 days. He received [place] at 1430 and naproxen at 1700. He states this has never happened before. No falls/trauma. Denies prior headaches. No known fevers per patient and none documented in reviewing NH documentation. Headache located frontal and radiating behind. Patient states he vomiting but details unclear. Says his appetite is poor. He is having some right shoulder/arm pain, states this is chronic. Related Data Home Medications Medication Instructions Recorded Confirmed alendronate 70 mg tablet 70 mg PO WEEKLY 06/03/23 12/04/23 bisacodyl 10 mg rectal suppository 10 mg RECTAL DAILY PRN Constipation 06/03/23 12/04/23 (Dulcolax (bisacodyl)) Saccharomyces boulardii 250 mg 250 mg PO BID 11/22/23 12/04/23 capsule benzonatate 200 mg capsule 200 mg PO TID 11/22/23 12/04/23 budesonide 3 mg 3 mg PO DAILY 11/22/23 12/04/23 capsule,delayed,extended release carbidopa 25 mg-levodopa 250 mg 1 tablet PO TID 11/22/23 12/04/23 tablet carvedilol 3.125 mg tablet 3.125 mg PO BID 11/22/23 12/04/23 dextran 70-hypromellose 0.1 %-0.3 1 drp EACH EYE Q12H PRN Dry Eyes 11/22/23 12/04/23 % eye drops (Artificial Tears (dextran 70-hypromellose)) furosemide 20 mg tablet 20 mg PO DAILY 11/22/23 12/04/23 gabapentin 300 mg capsule 300 mg PO TID 11/22/23 12/04/23 loperamide 2 mg tablet 2 mg PO Q2H PRN Diarrhea 11/22/23 12/04/23 magnesium hydroxide 400 mg/5 mL 30 ml PO HS PRN Constipation 11/22/23 12/04/23 oral suspension (Milk of Magnesia) melatonin 3 mg tablet 3 mg PO HS Sleep 11/22/23 12/04/23 omeprazole 20 mg capsule,delayed 20 mg PO DAILY 11/22/23 12/04/23 release oxybutynin chloride 10 mg 10 mg PO DAILY 11/22/23 12/04/23 tablet,extended release 24 hr sennosides 8.6 mg-docusate sodium 1 tab-cap PO BID PRN Constipation 11/22/23 12/04/23 50 mg tablet atorvastatin 80 mg tablet 80 mg PO HS 12/04/23 12/04/23 diphenhydramine HCl 25 mg capsule 25 mg PO TID PRN Itching 12/04/23 12/04/23 (Allergy (diphenhydramine)) magnesium citrate (Citroma oral 296 ml PO DAILY PRN Constipation 12/04/23 12/04/23 solution) sennosides 8.6 mg tablet (Senokot) 8.6 mg PO DAILY 12/04/23 12/04/23 sodium phosphates 19 gram-7 197 ml RECTAL ONCE PRN Constipation 12/04/23 12/04/23 gram/118 mL enema (Fleet Enema) diclofenac sodium 1 % topical gel 2 g topical TID PRN Pain 12/06/23 12/06/23 Allergies Allergy/AdvReac Type Severity Reaction Status Date / Time neomycin Allergy Unknown rash Verified 12/17/23 21:11 Sulfa (Sulfonamide Allergy Unknown Rash Verified 12/17/23 21:11 Antibiotics) castor oil AdvReac Intermediate Nausea and Verified 12/17/23 21:11 Vomiting erythromycin base AdvReac Intermediate SHAKING, Verified 12/17/23 21:11 HEADACHE PMFSH Past Medical History Medical History (Updated 12/19/23 @ 00:01 by Timothy Arellano) Arthritis Benign prostatic hyperplasia Chronic anemia Chronic kidney disease, stage 3 Baseline creatinine ranges between 1.30 and 1.40. 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 Surgical History Surgical History History of appendectomy History of arthroscopy of right knee History of back surgery History of cataract extraction History of cholecystectomy History of repair of left rotator cuff History of right nephrec
[2023-12-17 22:13] LABS: Estimated CRCL calculation 51 ml/min; Estimated Glomerular Filt Rate > 60
[2023-12-17] MEDS: ACETAMINOPHEN 500 MG TABLET 1000 MG PO (22:25)
[2023-12-17 22:43] LABS: Basophils Percent Auto 0.3 % (0.2-1.2); Eosinophils Absolute Auto 0.1 K/mm3 (0-0.3); Eosinophils Percent Auto 0.9 % (0-4.4); Hematocrit 24.1 % (42.0-52.0); Hemoglobin 7.4 g/dL (14.0-18.0); Immature Granulocyte Absolute 0.04 K/mm3 (0.00-0.031); Immature Granulocyte Percent A 0.6 % (0-0.5); Mean Corpuscular HGB Conc 30.7 g/dl (32-36); Mean Corpuscular Hemoglobin 25.3 pg (26-34); Mean Corpuscular Volume 82.5 fl (80-100); Mean Platelet Volume 9.8 fl (7.4-10.4); Monocytes Absolute Auto 0.6 K/mm3 (0.1-0.6); Monocytes Percent Auto 7.8 % (2.6-8.5); Neutrophils Absolute Auto 3.8 K/mm3 (1.3-6.7); Neutrophils Percent Auto 53.4 % (45.5-73.1); Platelet Count Result 175 k/mm3 (150-375); Red Blood Count 2.92 M/mm3 (4.6-6.20)
[2023-12-17 22:54] LABS: Albumin Level 2.7 g/dL (3.5-5.1); Alkaline Phosphatase 69 U/L (38-126); Anion Gap 8 mmol/L (8-16); Aspartate Amino Transferase 15 U/L (17-59); Bilirubin,Total 0.5 mg/dL (0.2-1.3); Blood Urea Nitrogen 23 mg/dL (9-20); Carbon Dioxide 22 mmol/L (22-30); Chloride 98 mmol/L (98-107); Estimated CRCL calculation 56 ml/min; Estimated Glomerular Filt Rate > 60; Glucose 116 mg/dL (65-110); INR 1.3; Potassium 3.8 mmol/L (3.4-5.0); Prothrombin Time 16.4 Seconds (11.1-14.7); Sodium 128 mmol/L (137-145)
[2023-12-17 22:55] LABS: Partial Thromboplastin Time 44.5 SECONDS (22.3-36.8)
[2023-12-17 23:07] VITALS: BP 112/60; PULSE 52; RESP 18; O2SAT 98
[2023-12-17 23:13] LABS: Platelet Estimate Adequate (Adequate)
[2023-12-17 23:14] LABS: Anisocytosis 1+ (NORMAL); Burr Cells 1+ (NORMAL); Ovalocytes 1+ (NORMAL); Schistocytes None Seen (NORMAL)
[2023-12-17 23:19] LABS: Influenza A QL RT-PCR Negative (Negative); Influenza B QL RT-PCR Negative (Negative); RSV RNA, RT-PCR Negative (Negative); SARS-CoV-2 RNA PCR Negative (Negative)
[2023-12-17 23:38] LABS: Alanine Aminotransferase 5 U/L (6-50)
[2023-12-18] MEDS: PROCHLORPERAZINE EDISYLATE 10 MG/2 ML VIAL IV PUSH (00:38)
[2023-12-18] MEDS: KETOROLAC 15 MG/ML VIAL (*BKC) IV PUSH (00:38)
[2023-12-18] MEDS: SODIUM CHLORIDE 0.9% IV 1,000 ML 999 ML IV CONT (00:38)
[2023-12-18 01:06] VITALS: BP 134/99; PULSE 54; RESP 14; O2SAT 98
[2023-12-18] MEDS: predniSONE 20 MG TABLET PO (02:11)
[2023-12-18] MEDS: MAGNESIUM SULF 1 GM/D5W 100 ML 1 GM/100 ML BAG IVPB (02:11)
[2023-12-18 02:15] VITALS: BP 111/52; PULSE 54; RESP 12; O2SAT 98
== END 2023-12-18 03:55 ==
PROVIDERS: Emergency Provider Student in an Organized Health Care Education/Training Program; PCP Family Medicine
DX: R51.9 Headache, unspecified (principal); I67.1 Cerebral aneurysm, nonruptured; I65.23 Occlusion and stenosis of bilateral carotid arteries; J90 Pleural effusion, not elsewhere classified; D64.9 Anemia, unspecified; E87.1 Hypo-osmolality and hyponatremia; C91.10 Chronic lymphocytic leukemia of B-cell type not having achieved remission; G20.A1 Parkinson's disease without dyskinesia, without mention of fluctuations; J44.9 Chronic obstructive pulmonary disease, unspecified; I12.9 Hypertensive chronic kidney disease with stage 1 through stage 4 chronic kidney disease, or unspecified chronic kidney disease; N18.30 Chronic kidney disease, stage 3 unspecified; N40.0 Benign prostatic hyperplasia without lower urinary tract symptoms; M17.0 Bilateral primary osteoarthritis of knee; K21.9 Gastro-esophageal reflux disease without esophagitis; Z20.822 Contact with and (suspected) exposure to COVID-19; E03.9 Hypothyroidism, unspecified; G47.33 Obstructive sleep apnea (adult) (pediatric); Z85.528 Personal history of other malignant neoplasm of kidney; Z87.891 Personal history of nicotine dependence; Z90.5 Acquired absence of kidney; Z90.49 Acquired absence of other specified parts of digestive tract; Z98.49 Cataract extraction status, unspecified eye; R90.82 White matter disease, unspecified
CPT/HCPCS: 70496; 70498; 80053; 85025; 85610; 85730; 87637; 96365; 96375; 99284; A9270; J0780; J1885; J3475; J7030; J7512; Q9967

== ENCOUNTER 2024-01-22 02:48 | Emergency (ER) | payer MEDICARE, MEDICAID, SELFPAY ==
[2024-01-22] VITALS (8 sets, daily range): BP systolic 106–119; BP diastolic 49–57; PULSE 52–54; RESP 10–23; TEMP 36.3; O2SAT 97–99
--- NOTE | ~2024-01-22 | CT_ITS ---
EXAMINATION: CT brain wo con INDICATION: Headache COMPARISON: 12/17/2023 TECHNIQUE: Standard unenhanced head CT. The dose-length product (DLP) was 908.00 mGy-cm. The mA was a djusted according to patient size. Iterative reconstruction technique was employed. FINDINGS: No acute intraparenchymal hemorrhage. No evidence of mass lesion. No evidence of acute infa rction. Old cerebellar infarcts are again noted. There is an old left parietal infarct. There is mild periventricular and subcortical hypodensity probably related to small vessel ischemic disease. There is mild prominence of the sulci and ventricles related to cerebral atrophy. Intracranial calcified c erebral atherosclerosis is noted. No extra-axial collections. No mass effect or midline shift. Change s in the globes are likely from ocular lens surgery. The visualized sinuses and mastoid air cells are well aerated. IMPRESSION: 1. No acute intracranial abnormality. 2. Age related findings. Reviewed, dictated and finalized at location F.
--- NOTE | ~2024-01-22 | CT_ITS ---
EXAMINATION: CT cervical spine wo con DATE: 01/22/2024 03:25 INDICATION: Neck pain TECHNIQUE: Computed tomography (CT) of the cervical spine was performed without intravenous contrast. The dose-length product (DLP) was 423.86 mGy-cm. Automated exposure control and iterative reconstruc tion technique were employed. COMPARISON: 12/17/2023 FINDINGS: Bone alignment is normal. There is no fracture. There is mild loss of intervertebral disc s pace height throughout the cervical spine. The odontoid process is intact. There are 17 degrees of ce rvical dextroscoliosis. There is multilevel mild to moderate facet and uncovertebral joint osteoarthr itis. IMPRESSION: 1. Mild cervical spondylosis without acute findings or significant interval change. Reviewed, dictated and finalized at location F. IMPRESSION: 1. Mild cervical spondylosis without acute findings or significant interval teresa nge.
--- NOTE | 2024-01-22 02:48 | ED.GENADULT ---
HPI - General Adult General Chief complaint: Headache Stated complaint: HEADACHE History of Present Illness HPI narrative: Patient is an 83-year-old male who presents the emergency department this morning from his extended care facility complaining of neck pain and headache. Neck pain and headache are left-sided and patient admits that they have been bothering him for the past 2 days. Patient denies any history of migraines or headaches, states that he normally did not get any headaches. He denies any recent falls or trauma. Patient currently denies any fevers or chills, any nausea, vomiting, or abdominal pain. Patient does have an indwelling Duron catheter which he states was recently changed. He denies any dizziness, lightheadedness, focal weakness, numbness and tingling. There are other modifying, alleviating, or precipitating factors at this time. Related Data Home Medications Medication Instructions Recorded Confirmed alendronate 70 mg tablet 70 mg PO WEEKLY 06/03/23 12/04/23 bisacodyl 10 mg rectal suppository 10 mg RECTAL DAILY PRN Constipation 06/03/23 12/04/23 (Dulcolax (bisacodyl)) Saccharomyces boulardii 250 mg 250 mg PO BID 11/22/23 12/04/23 capsule benzonatate 200 mg capsule 200 mg PO TID 11/22/23 12/04/23 budesonide 3 mg 3 mg PO DAILY 11/22/23 12/04/23 capsule,delayed,extended release carvedilol 3.125 mg tablet 3.125 mg PO BID 11/22/23 12/04/23 dextran 70-hypromellose 0.1 %-0.3 1 drp EACH EYE Q12H PRN Dry Eyes 11/22/23 12/04/23 % eye drops (Artificial Tears (dextran 70-hypromellose)) furosemide 20 mg tablet 20 mg PO DAILY 11/22/23 12/04/23 gabapentin 300 mg capsule 300 mg PO TID 11/22/23 12/04/23 magnesium hydroxide 400 mg/5 mL 30 ml PO HS PRN Constipation 11/22/23 12/04/23 oral suspension (Milk of Magnesia) omeprazole 20 mg capsule,delayed 20 mg PO DAILY 11/22/23 12/04/23 release oxybutynin chloride 10 mg 10 mg PO DAILY 11/22/23 12/04/23 tablet,extended release 24 hr sennosides 8.6 mg-docusate sodium 1 tab-cap PO BID PRN Constipation 11/22/23 12/04/23 50 mg tablet atorvastatin 80 mg tablet 80 mg PO HS 12/04/23 12/04/23 diphenhydramine HCl 25 mg capsule 25 mg PO TID PRN Itching 12/04/23 12/04/23 (Allergy (diphenhydramine)) sennosides 8.6 mg tablet (Senokot) 8.6 mg PO DAILY 12/04/23 12/04/23 naproxen 500 mg tablet 500 mg PO BID 12/30/23 polyethylene glycol 3350 17 gram 17 g PO DAILY 12/30/23 oral powder packet Allergies Allergy/AdvReac Type Severity Reaction Status Date / Time neomycin Allergy Unknown rash Verified 12/30/23 08:44 Sulfa (Sulfonamide Allergy Unknown Rash Verified 12/30/23 08:44 Antibiotics) castor oil AdvReac Intermediate Nausea and Verified 12/30/23 08:44 Vomiting erythromycin base AdvReac Intermediate SHAKING, Verified 12/30/23 08:44 HEADACHE Review of Systems Review of Systems: All systems are reviewed and are negative unless stated otherwise in the HPI. [facility] Past Medical History Medical History Arthritis Benign prostatic hyperplasia Chronic anemia Chronic kidney disease, stage 3 Baseline creatinine ranges between 1.30 and 1.40. 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 Silicosis Surgical History Surgical History History of appendectomy History of arthroscopy of right knee History of back surgery History of cataract extraction History of cholecystectomy History of repair of left rotat
[2024-01-22 03:45] LABS: Basophils Percent Auto 0.5 % (0.2-1.2); Eosinophils Absolute Auto 0.3 K/mm3 (0-0.3); Eosinophils Percent Auto 3.7 % (0-4.4); Hematocrit 27.1 % (42.0-52.0); Hemoglobin 8.3 g/dL (14.0-18.0); Immature Granulocyte Absolute 0.04 K/mm3 (0.00-0.031); Immature Granulocyte Percent A 0.5 % (0-0.5); Lymphocytes Absolute Auto 2.86 K/mm3 (0.9-3.2); Lymphocytes Percent Auto 38.1 % (18.3-44.2); Mean Corpuscular HGB Conc 30.6 g/dl (32-36); Mean Corpuscular Hemoglobin 25.2 pg (26-34); Mean Corpuscular Volume 82.4 fl (80-100); Mean Platelet Volume 11.4 fl (7.4-10.4); Monocytes Absolute Auto 0.6 K/mm3 (0.1-0.6); Monocytes Percent Auto 8.3 % (2.6-8.5); Neutrophils Absolute Auto 3.7 K/mm3 (1.3-6.7); Neutrophils Percent Auto 48.9 % (45.5-73.1); Platelet Count Result 171 k/mm3 (150-375); Red Blood Count 3.29 M/mm3 (4.6-6.20); Red Cell Distribution Width 18.6 % (11.5-14.5); White Blood Count 7.5 K/mm3 (4.5-10.0)
[2024-01-22 03:48] LABS: Appearance Urine Turbid (Clear); Color Urine Light Yellow (Yellow); Glucose Urine UA Negative (Negative); Protein Urine 1+ mg/dL (Negative); pH Urine 5.5 (5.0-9.0)
[2024-01-22 03:49] LABS: Bilirubin Urine Negative (Negative); Blood Urine 2+ (Negative); Ketones Urine Negative (Negative); Leukocyte Esterase Ur 3+ LEU/UL (Negative); Nitrate Urine Negative (Negative); Urobilinogen Urine 0.2 mg/dL (<2.0)
[2024-01-22 03:57] LABS: Alkaline Phosphatase 68 U/L (38-126); Anion Gap 5 mmol/L (4-12); Aspartate Amino Transferase 23 U/L (17-59); Bilirubin,Total 0.6 mg/dL (0.2-1.3); Blood Urea Nitrogen 35 mg/dL (9-20); Calcium 8.4 mg/dL (8.4-10.2); Carbon Dioxide 26 mmol/L (22-30); Chloride 101 mmol/L (98-107); Estimated CRCL calculation 40 ml/min; Estimated Glomerular Filt Rate 53; Glucose 100 mg/dL (65-110); Potassium 4.2 mmol/L (3.4-5.0); Sodium 132 mmol/L (137-145)
[2024-01-22 03:59] LABS: Bacteria Urine 4+ /hpf; Need Manual Microscopic Reviewed; RBC Urine 0-2 /hpf (0-2); Squamous Epithelial Cell Urine Moderate /hpf (Few); WBC Urine >100 /hpf (0-3)
[2024-01-22 04:01] LABS: Add Urine Microscopic? YES
[2024-01-22 04:06] LABS: Alanine Aminotransferase 4 U/L (6-50)
[2024-01-22] MEDS: KETOROLAC 15 MG/ML VIAL (*BKC) IV PUSH (04:27)
== END 2024-01-22 06:01 ==
PROVIDERS: Emergency Provider Emergency Medicine; PCP Family Medicine
DX: M43.6 Torticollis (principal); N39.0 Urinary tract infection, site not specified; I12.9 Hypertensive chronic kidney disease with stage 1 through stage 4 chronic kidney disease, or unspecified chronic kidney disease; N18.30 Chronic kidney disease, stage 3 unspecified; N40.0 Benign prostatic hyperplasia without lower urinary tract symptoms; D64.9 Anemia, unspecified; C91.10 Chronic lymphocytic leukemia of B-cell type not having achieved remission; J44.9 Chronic obstructive pulmonary disease, unspecified; E03.9 Hypothyroidism, unspecified; G47.33 Obstructive sleep apnea (adult) (pediatric); G20.A1 Parkinson's disease without dyskinesia, without mention of fluctuations; K21.9 Gastro-esophageal reflux disease without esophagitis; M17.0 Bilateral primary osteoarthritis of knee; F41.8 Other specified anxiety disorders; Z85.528 Personal history of other malignant neoplasm of kidney; Z90.5 Acquired absence of kidney; Z90.49 Acquired absence of other specified parts of digestive tract; Z98.49 Cataract extraction status, unspecified eye
CPT/HCPCS: 36415; 70450; 72125; 80053; 81001; 85025; 87077; 87086; 87088; 87186; 96365; 96375; 99284; J0696; J1885

== ENCOUNTER 2024-02-12 17:03 | Observation (INO) | payer MEDICARE, MEDICAID, SELFPAY ==
--- NOTE | ~2024-02-12 | CT_ITS ---
EXAMINATION: CT chest abdomen pelvis w con DATE: 02/12/2024 22:13 INDICATION: Left upper quadrant abdominal pain. TECHNIQUE: Computed tomography (CT) of the chest, abdomen, and pelvis was performed with 100 mL Omnip aque 350 intravenous contrast. Automated exposure control and iterative reconstruction technique were employed. The dose-length product was 1009.94 mGy-cm. COMPARISON: CT abdomen and pelvis 12/03/23 FINDINGS: CHEST CT: There is mild atelectasis bilaterally. A calcified right lung nodule and calcified right hilar and me diastinal lymph nodes are consistent with old granulomatous disease. No pleural effusion. The heart s ize is normal. There are coronary artery calcifications. There are calcifications of aortic valve. No pericardial effusion. There is mild thoracic spondylosis. ABDOMEN/PELVIS CT: The liver, spleen, pancreas, and adrenal glands are normal. There are changes of right nephrectomy. T here are cysts in left kidney measuring up to 15 mm. There is calcified atherosclerosis of the aorta and many of the other arteries. There is a Duron catheter in expected position. The prostate is mildl y enlarged. There is diverticulosis of the colon without evidence of diverticulitis. There are no dil ated loops of bowel. The appendix is not visualized. There are no pathologically enlarged lymph nodes . There is no free intraperitoneal fluid. There is a fracture of right femoral neck with internal fix ation. There is moderate lumbar spondylosis. IMPRESSION: 1. No etiology for the patient's symptoms. Reviewed, dictated and finalized at location E.
--- NOTE | ~2024-02-12 | XR_ITS ---
EXAMINATION: XR chest 2V DATE: 02/12/2024 18:27 INDICATION: Chest pain. TECHNIQUE: Frontal and lateral views of the chest were obtained. COMPARISON: Chest 2 views 01/30/23, CT abdomen and pelvis 12/03/2023 FINDINGS: There is mild atelectasis versus scarring in the lower lung zones. No pleural effusion or p neumothorax. The heart size is normal. IMPRESSION: 1. Mild atelectasis versus scarring in the lower lung zones. Reviewed, dictated and finalized at location E.
[2024-02-12 17:07] VITALS: BP 129/61; PULSE 65; RESP 16; TEMP 36.3; O2SAT 99
--- NOTE | 2024-02-12 17:13 | ECG_ITS ---
SEE SCANNED COPY FOR CONFIRMED REPORT MTDD
--- NOTE | 2024-02-12 17:21 | ED.CHESTPAIN ---
HPI - Chest Pain General Chief Complaint: Chest Pain Stated Complaint: chest pain Time Seen by Provider: 02/12/24 19:46 Focused HPI: GENERAL: Chronically ill-appearing, well-nourished, and in no acute distress. HEAD: Normocephalic, atraumatic. CHEST: Clear to auscultation. No respiratory distress. HEART: Regular rate and rhythm. NEURO: Alert and oriented x3. Patient screened in triage and initial orders placed. Additional care and disposition to be based upon diagnostic testing and treatment. 84-year-old male history of CHF, acute leukemia, neuromuscular bladder dysfunction, hyperlipidemia, GERD,, cardiomyopathy, hypertension, presented from [facility] via [facility] for evaluation of acute onset of chest pain. Patient states that she was inactive with the chest pain began. States the pain is present for 2-3 minutes and comes and goes. Describes pain as a pressure sensation. No radiating pain. If associated with occasional shortness of breath. Related Data Home Medications Medication Instructions Recorded Confirmed alendronate 70 mg tablet 70 mg PO WEEKLY 06/03/23 02/13/24 bisacodyl 10 mg rectal suppository 10 mg RECTAL DAILY PRN Constipation 06/03/23 02/13/24 (Dulcolax (bisacodyl)) Saccharomyces boulardii 250 mg 250 mg PO BID 11/22/23 02/13/24 capsule benzonatate 200 mg capsule 200 mg PO TID 11/22/23 02/13/24 budesonide 3 mg 3 mg PO DAILY 11/22/23 02/13/24 capsule,delayed,extended release carvedilol 3.125 mg tablet 3.125 mg PO BID 11/22/23 02/13/24 dextran 70-hypromellose 0.1 %-0.3 1 drp EACH EYE Q12H PRN Dry Eyes 11/22/23 02/13/24 % eye drops (Artificial Tears (dextran 70-hypromellose)) furosemide 20 mg tablet 20 mg PO DAILY 11/22/23 02/13/24 gabapentin 300 mg capsule 300 mg PO TID 11/22/23 02/13/24 magnesium hydroxide 400 mg/5 mL 30 ml PO HS PRN Constipation 11/22/23 02/13/24 oral suspension (Milk of Magnesia) omeprazole 20 mg capsule,delayed 20 mg PO DAILY 11/22/23 02/13/24 release oxybutynin chloride 10 mg 10 mg PO DAILY 11/22/23 02/13/24 tablet,extended release 24 hr atorvastatin 80 mg tablet 80 mg PO HS 12/04/23 02/13/24 diphenhydramine HCl 25 mg capsule 25 mg PO TID PRN Itching 12/04/23 02/13/24 (Allergy (diphenhydramine)) sennosides 8.6 mg tablet (Senokot) 8.6 mg PO DAILY 12/04/23 02/13/24 naproxen 500 mg tablet 500 mg PO BID 12/30/23 02/13/24 polyethylene glycol 3350 17 gram 17 g PO DAILY 12/30/23 02/13/24 oral powder packet hydrocodone 5 mg-acetaminophen 325 1 tablet PO Q8H PRN Pain (Scale 02/13/24 02/13/24 mg tablet Score 4-6) Allergies Allergy/AdvReac Type Severity Reaction Status Date / Time neomycin Allergy Unknown rash Verified 12/30/23 08:44 Sulfa (Sulfonamide Allergy Unknown Rash Verified 12/30/23 08:44 Antibiotics) castor oil AdvReac Intermediate Nausea and Verified 12/30/23 08:44 Vomiting erythromycin base AdvReac Intermediate SHAKING, Verified 12/30/23 08:44 HEADACHE PMFSH Past Medical History Medical History Arthritis Benign prostatic hyperplasia Chronic anemia Chronic kidney disease, stage 3 Baseline creatinine ranges between 1.30 and 1.40. 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 Silicosis Surgical History Surgical History History of appendectomy History of arthroscopy of right knee History of back surgery History of cataract extraction History of cholecystectomy History of repair of
[2024-02-12 17:40] LABS: Basophils Absolute Auto 0.1 K/mm3 (0.0-0.1); Basophils Percent Auto 0.5 % (0.2-1.2); Eosinophils Absolute Auto 0.3 K/mm3 (0-0.3); Eosinophils Percent Auto 2.2 % (0-4.4); Hematocrit 31.5 % (42.0-52.0); Hemoglobin 9.6 g/dL (14.0-18.0); Immature Granulocyte Absolute 0.16 K/mm3 (0.00-0.031); Immature Granulocyte Percent A 1.1 % (0-0.5); Lymphocytes Absolute Auto 6.03 K/mm3 (0.9-3.2); Lymphocytes Percent Auto 40.4 % (18.3-44.2); Mean Corpuscular HGB Conc 30.5 g/dl (32-36); Mean Corpuscular Hemoglobin 25.1 pg (26-34); Mean Corpuscular Volume 82.5 fl (80-100); Mean Platelet Volume 9.9 fl (7.4-10.4); Monocytes Absolute Auto 0.8 K/mm3 (0.1-0.6); Monocytes Percent Auto 5.3 % (2.6-8.5); Neutrophils Absolute Auto 7.5 K/mm3 (1.3-6.7); Neutrophils Percent Auto 50.5 % (45.5-73.1); Platelet Count Result 225 k/mm3 (150-375); Red Blood Count 3.82 M/mm3 (4.6-6.20); Red Cell Distribution Width 19.6 % (11.5-14.5); White Blood Count 14.9 K/mm3 (4.5-10.0)
[2024-02-12 17:52] LABS: Alanine Aminotransferase 6 U/L (6-50); Albumin Level 3.8 g/dL (3.5-5.1); Alkaline Phosphatase 85 U/L (38-126); Anion Gap 10 mmol/L (4-12); Aspartate Amino Transferase 20 U/L (17-59); Bilirubin,Total 0.8 mg/dL (0.2-1.3); Blood Urea Nitrogen 40 mg/dL (9-20); Calcium 9.2 mg/dL (8.4-10.2); Carbon Dioxide 21 mmol/L (22-30); Chloride 103 mmol/L (98-107); Estimated CRCL calculation 42 ml/min; Estimated Glomerular Filt Rate 58; Glucose 126 mg/dL (65-110); Lipase 45 U/L (23-300); Potassium 4.5 mmol/L (3.4-5.0); Sodium 134 mmol/L (137-145)
[2024-02-12 17:57] LABS: Platelet Estimate Adequate (Adequate)
[2024-02-12 17:58] LABS: Atypical Lymphocytes Present; Ovalocytes 1+; Schistocytes None Seen
[2024-02-12 18:02] LABS: INR 1.2; Prothrombin Time 15.5 Seconds (11.1-14.7); Troponin I 0.032 ng/mL (0.000-0.034)
[2024-02-12 18:03] LABS: Partial Thromboplastin Time 38.7 Seconds (22.3-36.8)
--- NOTE | 2024-02-12 19:47 | ED.CHESTPAIN ---
HPI - Chest Pain General Chief Complaint: Chest Pain Stated Complaint: chest pain Time Seen by Provider: 02/12/24 19:46 Source: patient and EMS Mode of arrival: EMS History of Present Illness HPI narrative: 84 years old white male came from detention by ambulance complaining of left lower ribs and left upper quadrant pain started yesterday, sharp, intermittent, denies aggravating or relieving factors, denying radiation of pain. He denies any fever, chills, nausea, vomiting or coughing. Patient is telling me that he does not eat at the detention because the quality of food and he is starving. Related Data Home Medications Medication Instructions Recorded Confirmed alendronate 70 mg tablet 70 mg PO WEEKLY 06/03/23 12/04/23 bisacodyl 10 mg rectal suppository 10 mg RECTAL DAILY PRN Constipation 06/03/23 12/04/23 (Dulcolax (bisacodyl)) Saccharomyces boulardii 250 mg 250 mg PO BID 11/22/23 12/04/23 capsule benzonatate 200 mg capsule 200 mg PO TID 11/22/23 12/04/23 budesonide 3 mg 3 mg PO DAILY 11/22/23 12/04/23 capsule,delayed,extended release carvedilol 3.125 mg tablet 3.125 mg PO BID 11/22/23 12/04/23 dextran 70-hypromellose 0.1 %-0.3 1 drp EACH EYE Q12H PRN Dry Eyes 11/22/23 12/04/23 % eye drops (Artificial Tears (dextran 70-hypromellose)) furosemide 20 mg tablet 20 mg PO DAILY 11/22/23 12/04/23 gabapentin 300 mg capsule 300 mg PO TID 11/22/23 12/04/23 magnesium hydroxide 400 mg/5 mL 30 ml PO HS PRN Constipation 11/22/23 12/04/23 oral suspension (Milk of Magnesia) omeprazole 20 mg capsule,delayed 20 mg PO DAILY 11/22/23 12/04/23 release oxybutynin chloride 10 mg 10 mg PO DAILY 11/22/23 12/04/23 tablet,extended release 24 hr sennosides 8.6 mg-docusate sodium 1 tab-cap PO BID PRN Constipation 11/22/23 12/04/23 50 mg tablet atorvastatin 80 mg tablet 80 mg PO HS 12/04/23 12/04/23 diphenhydramine HCl 25 mg capsule 25 mg PO TID PRN Itching 12/04/23 12/04/23 (Allergy (diphenhydramine)) sennosides 8.6 mg tablet (Senokot) 8.6 mg PO DAILY 12/04/23 12/04/23 naproxen 500 mg tablet 500 mg PO BID 12/30/23 polyethylene glycol 3350 17 gram 17 g PO DAILY 12/30/23 oral powder packet Allergies Allergy/AdvReac Type Severity Reaction Status Date / Time neomycin Allergy Unknown rash Verified 12/30/23 08:44 Sulfa (Sulfonamide Allergy Unknown Rash Verified 12/30/23 08:44 Antibiotics) castor oil AdvReac Intermediate Nausea and Verified 12/30/23 08:44 Vomiting erythromycin base AdvReac Intermediate SHAKING, Verified 12/30/23 08:44 HEADACHE Review of Systems Review of Systems: All systems reviewed & are unremarkable except as noted in HPI and below PMFSH Past Medical History Medical History Arthritis Benign prostatic hyperplasia Chronic anemia Chronic kidney disease, stage 3 Baseline creatinine ranges between 1.30 and 1.40. 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 Silicosis Surgical History Surgical History History of appendectomy History of arthroscopy of right knee History of back surgery History of cataract extraction History of cholecystectomy History of repair of left rotator cuff History of right nephrectomy (2003) Family History Family History Father Family history of liver disease Family history of lung cancer Patient's father is Family history of primary malignant neoplasm
[2024-02-12 21:06] LABS: Troponin I 0.026 ng/mL (0.000-0.034)
--- NOTE | 2024-02-12 21:10 | ECG_ITS ---
SEE SCANNED COPY FOR CONFIRMED REPORT MTDD
[2024-02-12 21:16] VITALS: BP 126/65; PULSE 65; RESP 16; O2SAT 99
--- NOTE | 2024-02-12 23:19 | ECG_ITS ---
SEE SCANNED COPY FOR CONFIRMED REPORT MTDD
[2024-02-12 23:23] VITALS: BP 139/71; PULSE 73; RESP 16; O2SAT 98
[2024-02-12 23:59] LABS: Troponin I 0.028 ng/mL (0.000-0.034)
[2024-02-13] VITALS (14 sets, daily range): BP systolic 119–145; BP diastolic 45–80; PULSE 61–80; RESP 14–20; TEMP 36.3–36.9; O2SAT 95–100; BMI 24.4
--- NOTE | 2024-02-13 | ECHO_ITS ---
Patient Info Name: Florencio Bird Age: 84 years : 1940 Gender: Male Ht: 70 in Wt: 169 lbs BSA: 1.95 m2 HR: 65 bpm BP: 119 / 58 mmHg Heart Rhythm: Sinus Rhythm Technical Quality: Fair Exam Date: 02/13/2024 8:42 AM Exam Location: Echo Lab Patient Status: Inpatient Admit Date: 02/13/2024 Staff Ordering Physician: Andree Waddell APRN Rn Float: Bhupinder Felix RDCS Attending Provider: Ayaka Walter MD Referring Physician: Bairon DENNISON; Exam Type: CA echo doppler color flow Study Info Indications R07.9 - Chest pain, unspecified Complete two-dimensional, color flow and Doppler transthoracic echocardiogram is performed. Summary 1. Complete two-dimensional, color flow and Doppler transthoracic echocardiogram is performed. 2. Left ventricular chamber dimension is mildly enlarged. 3. Left ventricular systolic function is normal, estimated at 60-65%. 4. There is mildly increased left ventricular wall thickness. 5. The left ventricular diastolic function is grade I diastolic dysfunction. 6. Left atrial chamber dimension is mildly enlarged. 7. There is moderate aortic valve sclerosis. 8. There is mild aortic valve calcification. 9. There is mild mitral valve regurgitation. 10. There is mild tricuspid valve regurgitation. 11. Mild pulmonary hypertension, estimated pulmonary arterial systolic pressure is 36 mmHg. 12. There is mild pulmonic regurgitation. Left Ventricle Left ventricular chamber dimension is mildly enlarged. Left ventricular systolic function is normal, estimated at 60-65%. There is mildly increased left ventricular wall thickness. The left ventricular diastolic function is grade I diastolic dysfunction. Right Ventricle Right ventricular chamber dimension is normal. Right ventricular systolic function is normal. Left Atria Left atrial chamber dimension is mildly enlarged. Right Atria Right atrial chamber dimension is normal. Atrial Septum Intact interatrial septum visualized by color flow imaging. Aortic Valve The aortic valve is trileaflet. There is moderate aortic valve sclerosis. There is no aortic valve stenosis. There is trace aortic valve regurgitation. There is mild aortic valve calcification. Pulmonic Valve The pulmonic valve is normal. There is no pulmonic valve stenosis. There is mild pulmonic regurgitation. Mitral Valve The mitral valve has normal leaflets. There is no mitral valve stenosis. There is mild mitral valve regurgitation. Tricuspid Valve The tricuspid valve leaflets are normal. There is no significant tricuspid valve stenosis. There is mild tricuspid valve regurgitation. Mild pulmonary hypertension, estimated pulmonary arterial systolic pressure is 36 mmHg. Pericardium/Pleural The pericardium appears normal. There is no pericardial effusion. Inferior Vena Cava Normal inferior vena cava with >50% collapse upon inspiration consistent with normal right atrial pressure, 10 mmHg. Aorta The aortic root size at the sinus of Valsalva is normal. Left Ventricular Outflow Tract Name Value Normal LVOT 2D LVOT Diameter 2.0 cm LVOT Doppler LVOT Peak Gradient 3 mmHg LVOT Mean Gradient
--- NOTE | 2024-02-13 00:16 | PC.NURSE ---
Pt had strauss catheter on arrival. Changed by this RN to obtain new urine sample.
[2024-02-13 01:02] LABS: Add Urine Microscopic? YES; Appearance Urine Cloudy (Clear); Bacteria Urine 3+ /hpf; Bilirubin Urine Negative (Negative); Blood Urine Non-Hemolyzed Trace (Negative); Color Urine Yellow (Yellow); Glucose Urine UA Negative (Negative); Ketones Urine Negative (Negative); Leukocyte Esterase Ur 3+ LEU/UL (Negative); Need Manual Microscopic Reviewed; Nitrate Urine Negative (Negative); Protein Urine 1+ mg/dL (Negative); Specific Grav Ur 1.026 (1.001-1.035); Squamous Epithelial Cell Urine None Seen /hpf (Few); WBC Urine >100 /hpf (0-3)
--- NOTE | 2024-02-13 03:32 | ADMGEN ---
This patient, Florencio Bird, was admitted to IMU Room 207-01. Patient/family oriented to hospital policies and general routines including ID bracelet, bed and alarms, visiting hours, pain management, procedures, bathroom and other care routines, personal items, smoking policy, room service/diet, and visiting hours. Information on how to activate the Rapid Response Team has been discussed. Patient/Family are encouraged to report perceived risks to care and to ask questions if they do not understand what they are told or what they should do.
[2024-02-13] MEDS: SODIUM CHLORIDE 0.9% IV 1,000 ML 75 ML IV CONT (04:36)
--- NOTE | 2024-02-13 05:26 | ECG_ITS ---
SEE SCANNED COPY FOR CONFIRMED REPORT MTDD
[2024-02-13 06:35] LABS: Basophils Absolute Auto 0.1 K/mm3 (0.0-0.1); Basophils Percent Auto 0.7 % (0.2-1.2); Eosinophils Absolute Auto 0.3 K/mm3 (0-0.3); Eosinophils Percent Auto 3.7 % (0-4.4); Hematocrit 28.5 % (42.0-52.0); Hemoglobin 8.7 g/dL (14.0-18.0); Immature Granulocyte Absolute 0.08 K/mm3 (0.00-0.031); Immature Granulocyte Percent A 0.9 % (0-0.5); Lymphocytes Absolute Auto 4.18 K/mm3 (0.9-3.2); Lymphocytes Percent Auto 45.9 % (18.3-44.2); Mean Corpuscular HGB Conc 30.5 g/dl (32-36); Mean Corpuscular Hemoglobin 25.1 pg (26-34); Mean Corpuscular Volume 82.1 fl (80-100); Mean Platelet Volume 9.9 fl (7.4-10.4); Monocytes Absolute Auto 0.7 K/mm3 (0.1-0.6); Monocytes Percent Auto 7.5 % (2.6-8.5); Neutrophils Absolute Auto 3.8 K/mm3 (1.3-6.7); Neutrophils Percent Auto 41.3 % (45.5-73.1); Platelet Count Result 192 k/mm3 (150-375); Red Blood Count 3.47 M/mm3 (4.6-6.20); Red Cell Distribution Width 19.8 % (11.5-14.5); White Blood Count 9.1 K/mm3 (4.5-10.0)
[2024-02-13 06:49] LABS: Anion Gap 7 mmol/L (4-12); Blood Urea Nitrogen 36 mg/dL (9-20); Calcium 8.8 mg/dL (8.4-10.2); Carbon Dioxide 23 mmol/L (22-30); Chloride 106 mmol/L (98-107); Estimated CRCL calculation 42 ml/min; Estimated Glomerular Filt Rate 58; Glucose 95 mg/dL (65-110); Lipase 40 U/L (23-300); Magnesium 2.2 mg/dL (1.6-2.3); Potassium 4.4 mmol/L (3.4-5.0); Sodium 136 mmol/L (137-145)
[2024-02-13 07:13] LABS: Procalcitonin 0.1 ng/mL
[2024-02-13 07:48] LABS: Atypical Lymphocytes Present; Burr Cells 1+; Hypochromasia 1+; Platelet Estimate Adequate (Adequate); Schistocytes Rare
[2024-02-13 07:49] LABS: Poikilocytosis 1+
--- NOTE | 2024-02-13 08:37 | PM.IMHP ---
H&P: HPI History of Present Illness Date/Time: 02/13/24 08:37 Chief Complaint: Chest pain/ABD pain Narrative: Patient is an 84-year-old male who presented to the hospital with complaints of chest pain and ABD pain that started earlier that day. Patient transported via ambulance from [facility] in [facility] stating he has not been eating well because the food isn't good and he now has ABD pain. Patient past medical history of BPH with chronic urinary catheter, anemia, COPD, CKD, arthritis, GERD, hypothyroidism, and MARVIN. Chest pain atypical reproducible and worse with movement of LT arm (Patient with HX cervical spondylosis). Patient denied SOB, N/V, diarrhea, constipation, dizziness or any urinary complaints however patient has indwelling chronic strauss catheter. Troponins negative and EKG with RT BBB afib HR 62 no acute ischemic changes. CT ABD negative for any acute issues however UA + for UTI and patient has HX of ESBL. Unremarkable labs except for WBC of 14.9 and HGB 8.6 which is baseline for patient and UA with leukocytes and bacteria. Patient last UA + for ECOLI on 01/21 and was resistant to p.o. antibiotics patient was discharged with. Patient was admitted for chest pain/Ischemic R/O and possible ESBL UTI. Patient started on meropenem IV pending cultures. Review of Systems Review of Systems: All systems reviewed & are unremarkable except as noted in HPI and below PMFSH Past Medical History Medical History Arthritis Benign prostatic hyperplasia Chronic anemia Chronic kidney disease, stage 3 Baseline creatinine ranges between 1.30 and 1.40. 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 Silicosis Surgical History Surgical History History of appendectomy History of arthroscopy of right knee History of back surgery History of cataract extraction History of cholecystectomy History of repair of left rotator cuff History of right nephrectomy (2003) Family History Family History Father Family history of liver disease Family history of lung cancer Patient's father is Family history of primary malignant neoplasm of liver Mother Family history of heart disease in male family member before age 55 Patient's mother is Family history of coronary artery disease Acute myocardial infarction Sibling Family history of lung cancer Family history of malignant neoplasm of bone Patient's sister is Patient's brother is Malignant neoplasm of prostate Grandparent Family history of arthritis Other Family history of malignant neoplasm of kidney Social History Social History (Updated 02/13/24 @ 12:25 by Andree Waddell, CRUZ) Social History: The patient resides at [facility]. His son lives in the local area. The patient is retired from [employer]. No alcohol, tobacco, or illicit substance. . Code status: DNR Surrogate decision maker: Mark Bird Smoking status: Never smoker Second hand tobacco smoke exposure: No Alcohol intake: never Substance use: never Substance use type: does not use Do You Feel Safe in your Home?: Yes Lack of Transportation: No Lack of Food: Never True Current Housing: I Have Housing Concerned About Future Housing: No Difficulty Paying Gas/Electric Bills: No Difficulty Paying for Me
[2024-02-13] MEDS: FUROSEMIDE 20 MG TABLET PO (11:07)
[2024-02-13] MEDS: TAMSULOSIN HCL 0.4 MG CAPSULE 0.8 MG PO (11:08)
[2024-02-13] MEDS: FERROUS SULFATE 325 MG TABLET DR PO (11:08)
[2024-02-13] MEDS: BUDESONIDE 3 MG CAP.SR.24H PO (11:08)
[2024-02-13] MEDS: SACCHAROMYCES BOULARDII 250 MG CAPSULE PO ×2 (11:08→16:09)
[2024-02-13] MEDS: BENZONATATE 100 MG CAPSULE 200 MG PO ×2 (11:09→16:09)
[2024-02-13] MEDS: CARBIDOPA/LEVODOPA 25/100 MG TABLET 2 TABLET PO ×3 (11:09→20:18)
[2024-02-13] MEDS: carvediloL 3.125 MG TABLET PO ×2 (11:10→20:18)
[2024-02-13] MEDS: LEVOTHYROXINE SODIUM 100 MCG TABLET PO (11:10)
[2024-02-13] MEDS: amLODIPine BESYLATE 5 MG TABLET PO (11:11)
[2024-02-13] MEDS: GABAPENTIN 300 MG CAPSULE PO ×2 (11:12→16:09)
[2024-02-13] MEDS: LIDOCAINE 5% PATCH 1 PATCH TOPICAL (11:12)
[2024-02-13] MEDS: oxyBUTYnin CHLORIDE XL 5 MG TAB.ER.24 10 MG PO (11:12)
[2024-02-13] MEDS: MEROPENEM 1 GM/NS 100 ML 1 GM/100 ML BAG IVPB ×2 (11:12→20:19)
[2024-02-13] MEDS: NAPROXEN 500 MG TABLET PO ×2 (11:12→16:09)
[2024-02-13] MEDS: PANTOPRAZOLE 40 MG TABLET PO (11:13)
[2024-02-13] MEDS: polyethylene glycoL 3350 17 GM POWD.PACK PO (11:14)
[2024-02-13] MEDS: DULoxetine HCL 60 MG CAPSULE.DR PO (11:14)
[2024-02-13] MEDS: SENNOSIDES 8.6 MG TABLET PO (11:14)
[2024-02-13] MEDS: ATORVASTATIN 40 MG TABLET 80 MG PO (20:18)
[2024-02-13] MEDS: FINASTERIDE 5 MG TABLET PO (20:19)
[2024-02-13] MEDS: MIRTAZAPINE 15 MG TABLET PO (20:22)
--- NOTE | 2024-02-13 21:45 | PC.NURSE ---
This patient, Florencio Bird, was transferred to [facility] on 02/13/24 at 2150 Personal belongings sent with patient. Report given to Guera SHERIFF. Appropriate documentation sent with patient.
[2024-02-13] MEDS: HYDROcodone/acetaminophen (*CRX) 5-325 MG TABLET 1 TAB PO (22:42)
--- NOTE | 2024-02-13 22:53 | PC.NURSE ---
This patient, Florencio Bird, was received from [ [phone]] on 02/13/24 at 215. Patient/family oriented to unit policies and routines
[2024-02-14 06:00] VITALS: BP 144/53; PULSE 54; RESP 21; TEMP 35.8; O2SAT 100
[2024-02-14] MEDS: LEVOTHYROXINE SODIUM 100 MCG TABLET PO (06:12)
--- NOTE | 2024-02-14 08:26 | PM.IMPN ---
Progress Note: A&P Assessment and Plan (1) Chest pain: Code(s): R07.9 - Chest pain, unspecified Status: Acute (2) Abdominal pain: Code(s): R10.9 - Unspecified abdominal pain Status: Acute (3) UTI (urinary tract infection): Qualifiers: Hematuria presence: with hematuria Urinary tract infection type: acute cystitis Qualified Code(s): N30.01 - Acute cystitis with hematuria Code(s): N39.0 - Urinary tract infection, site not specified Status: Suspected (4) Chronic anemia: Code(s): D64.9 - Anemia, unspecified Status: Acute (5) Parkinsons disease: Code(s): G20 - Parkinson's disease Status: Acute (6) Chronic kidney disease, stage 3: Qualifiers: Chronic kidney disease stage 3 subtype: stage 3a (GFR 45-59) Qualified Code(s): N18.31 - Chronic kidney disease, stage 3a Code(s): N18.30 - Chronic kidney disease, stage 3 unspecified Status: Acute (7) Essential hypertension: Code(s): I10 - Essential (primary) hypertension Status: Acute (8) Urinary retention: Code(s): R33.9 - Retention of urine, unspecified Status: Acute Plan UTI frequent UTI with indwelling urinary catheter HX ESBL Started on meropenem pending cultures may need 7 days IV ABX therapy Possible cause of patient's abdominal pain WBC 14.9>9.1 Chest pain/ABD pain Atypical chest pain HX cervial spondylosis CT ABD negative CXR with no acute findings serial troponins x3 negative EKG without ischemic changes q.6 hours/ AFIB 61 Echo to look for valvular dysfunction and wall motion: continuous cardiac monitoring HX COPD: Stable, resumed prn inhaler HX HTN: resumed home BP medications HX BPH: Strauss catheter, resumed proscar, oxybutin, flomax HX constipation: Resumed softener and laxative HX GERD: resumed PPI HX anemia: Stable resumed Ferrous Sulfate HX HLD: Resumed statin HX paroxysmal AFib: no AC due to anemia and intermittent hematuria Code status: Full code per patient DVT prophylaxis: SCD Stress ulcer prophylaxis: Protonix 40 daily PT/OT notes: PT/OT pending Disposition: Patient admitted for ischemia workup in UTI. Patient has history of ESBL and may require 70 IV antibiotic therapy pending cultures. PT OT ordered plan will be for patient to return to the [facility] at discharge. Time Spent With Patient Time with patient: 15 - 25 minutes Subjective Date/time seen: 02/14/24 08:26 Interval history: Chest pain/ABD pain Narrative: Patient is an 84-year-old male who presented to the hospital with complaints of chest pain and ABD pain that started earlier that day.? Patient transported via ambulance from [facility] in [facility] stating he has not been eating well because the food isn't good and he now has ABD pain.? Patient past medical history of BPH with chronic urinary catheter, anemia, COPD, CKD, arthritis, GERD, hypothyroidism, and MARVIN.? Chest pain atypical reproducible and worse with movement of LT arm (Patient with HX cervical spondylosis).? Patient denied SOB, N/V, diarrhea, constipation, dizziness or any urinary complaints however patient has indwelling chronic strauss catheter.? Troponins negative and EKG with RT BBB afib HR 62 no acute ischemic changes.? CT ABD negative for any acute issues however UA + for UTI and patient has HX of ESBL.? Unremarkable labs except for WBC of 14.9 and HGB? 8.6 which is baseline for patient and UA with leukocytes and bacteria.? Patient last UA + for ECOLI on 01/21 and was resistant to p.o. antibiotics patient was discharged with.? Patient was admitted for chest pain/Ischemic R/O and possible ESBL UTI.? Patient started on meropenem IV pending cultures. 02/13: Patient with no complaints, denies CP or SOB ECOLI in UA pending sensitivities. Labs and vitals stable will return to [facility] once sensitivities received to ensure not ESBL.
[2024-02-14] MEDS: UMECLIDINIUM BROMIDE 62.5 MCG ELLIPTA 1 PUFF INHALATION (08:38)
[2024-02-14] MEDS: amLODIPine BESYLATE 5 MG TABLET PO (09:33)
[2024-02-14] MEDS: TAMSULOSIN HCL 0.4 MG CAPSULE 0.8 MG PO (09:34)
[2024-02-14] MEDS: FUROSEMIDE 20 MG TABLET PO (09:34)
[2024-02-14] MEDS: SENNOSIDES 8.6 MG TABLET PO (09:34)
[2024-02-14] MEDS: BENZONATATE 100 MG CAPSULE 200 MG PO ×3 (09:34→17:42)
[2024-02-14] MEDS: NAPROXEN 500 MG TABLET PO ×2 (09:34→17:42)
[2024-02-14] MEDS: GABAPENTIN 300 MG CAPSULE PO ×3 (09:34→17:42)
[2024-02-14] MEDS: SACCHAROMYCES BOULARDII 250 MG CAPSULE PO ×2 (09:34→17:42)
[2024-02-14 09:35] VITALS: PULSE 56
[2024-02-14] MEDS: PANTOPRAZOLE 40 MG TABLET PO (09:35)
[2024-02-14] MEDS: CARBIDOPA/LEVODOPA 25/100 MG TABLET 2 TABLET PO ×4 (09:35→19:38)
[2024-02-14] MEDS: carvediloL 3.125 MG TABLET PO ×2 (09:35→17:43)
[2024-02-14] MEDS: polyethylene glycoL 3350 17 GM POWD.PACK PO (09:37)
[2024-02-14 09:42] LABS: Hemoglobin 9.7 g/dL (14.0-18.0); Mean Corpuscular HGB Conc 29.4 g/dl (32-36); Mean Corpuscular Hemoglobin 24.8 pg (26-34); Mean Corpuscular Volume 84.4 fl (80-100); Mean Platelet Volume 10.1 fl (7.4-10.4); Platelet Count Result 195 k/mm3 (150-375); Red Blood Count 3.91 M/mm3 (4.6-6.20); Red Cell Distribution Width 19.8 % (11.5-14.5); White Blood Count 9.3 K/mm3 (4.5-10.0)
[2024-02-14 09:56] LABS: Alanine Aminotransferase 6 U/L (6-50); Albumin Level 3.6 g/dL (3.5-5.1); Alkaline Phosphatase 69 U/L (38-126); Anion Gap 8 mmol/L (4-12); Aspartate Amino Transferase 17 U/L (17-59); Bilirubin,Total 0.7 mg/dL (0.2-1.3); Blood Urea Nitrogen 33 mg/dL (9-20); Calcium 9.3 mg/dL (8.4-10.2); Carbon Dioxide 22 mmol/L (22-30); Chloride 107 mmol/L (98-107); Estimated CRCL calculation 42 ml/min; Estimated Glomerular Filt Rate 58; Glucose 99 mg/dL (65-110); Potassium 4.8 mmol/L (3.4-5.0); Sodium 137 mmol/L (137-145)
[2024-02-14] MEDS: oxyBUTYnin CHLORIDE XL 5 MG TAB.ER.24 10 MG PO (10:02)
[2024-02-14] MEDS: BUDESONIDE 3 MG CAP.SR.24H PO (10:02)
[2024-02-14] MEDS: MEROPENEM 1 GM/NS 100 ML 1 GM/100 ML BAG IVPB ×2 (10:03→19:39)
[2024-02-14] MEDS: DULoxetine HCL 60 MG CAPSULE.DR PO (10:03)
[2024-02-14] MEDS: LIDOCAINE 5% PATCH 1 PATCH TOPICAL (10:03)
[2024-02-14] MEDS: FERROUS SULFATE 325 MG TABLET DR PO (12:53)
[2024-02-14 14:00] VITALS: BP 146/67; PULSE 78; RESP 16; TEMP 36.3; O2SAT 100
[2024-02-14 17:43] VITALS: PULSE 60
[2024-02-14 19:35] VITALS: BP 132/65; PULSE 62; RESP 18; TEMP 36.4; O2SAT 99
[2024-02-14] MEDS: MIRTAZAPINE 15 MG TABLET PO (19:38)
[2024-02-14] MEDS: ATORVASTATIN 40 MG TABLET 80 MG PO (19:38)
[2024-02-14] MEDS: FINASTERIDE 5 MG TABLET PO (19:39)
[2024-02-15 05:08] VITALS: BP 111/67; PULSE 55; RESP 18; TEMP 36.3; O2SAT 99
[2024-02-15 05:22] LABS: Hematocrit 27.9 % (42.0-52.0); Hemoglobin 8.6 g/dL (14.0-18.0); Mean Corpuscular HGB Conc 30.8 g/dl (32-36); Mean Corpuscular Hemoglobin 25.3 pg (26-34); Mean Corpuscular Volume 82.1 fl (80-100); Mean Platelet Volume 9.9 fl (7.4-10.4); Platelet Count Result 186 k/mm3 (150-375); Red Cell Distribution Width 19.1 % (11.5-14.5); White Blood Count 8.1 K/mm3 (4.5-10.0)
[2024-02-15 05:37] LABS: Albumin Level 3.2 g/dL (3.5-5.1); Alkaline Phosphatase 70 U/L (38-126); Anion Gap 5 mmol/L (4-12); Aspartate Amino Transferase 18 U/L (17-59); Bilirubin,Total 0.5 mg/dL (0.2-1.3); Blood Urea Nitrogen 37 mg/dL (9-20); Calcium 9.3 mg/dL (8.4-10.2); Carbon Dioxide 27 mmol/L (22-30); Chloride 102 mmol/L (98-107); Estimated CRCL calculation 36 ml/min; Estimated Glomerular Filt Rate 48; Glucose 106 mg/dL (65-110); Potassium 4.8 mmol/L (3.4-5.0); Sodium 134 mmol/L (137-145)
[2024-02-15 05:43] LABS: Alanine Aminotransferase < 6 U/L (6-50)
[2024-02-15] MEDS: HYDROcodone/acetaminophen (*CRX) 5-325 MG TABLET 1 TAB PO (06:13)
[2024-02-15] MEDS: LEVOTHYROXINE SODIUM 100 MCG TABLET PO (06:21)
[2024-02-15] MEDS: UMECLIDINIUM BROMIDE 62.5 MCG ELLIPTA 1 PUFF INHALATION (07:40)
[2024-02-15 07:44] VITALS: O2SAT 95
[2024-02-15 09:56] VITALS: BP 117/49
[2024-02-15] MEDS: MEROPENEM 1 GM/NS 100 ML 1 GM/100 ML BAG IVPB (09:56)
[2024-02-15] MEDS: CARBIDOPA/LEVODOPA 25/100 MG TABLET 2 TABLET PO ×2 (09:56→12:22)
[2024-02-15] MEDS: FUROSEMIDE 20 MG TABLET PO (09:56)
[2024-02-15] MEDS: PANTOPRAZOLE 40 MG TABLET PO (09:56)
[2024-02-15] MEDS: SACCHAROMYCES BOULARDII 250 MG CAPSULE PO (09:56)
[2024-02-15] MEDS: BUDESONIDE 3 MG CAP.SR.24H PO (09:56)
[2024-02-15] MEDS: BENZONATATE 100 MG CAPSULE 200 MG PO ×2 (09:56→12:22)
[2024-02-15] MEDS: oxyBUTYnin CHLORIDE XL 5 MG TAB.ER.24 10 MG PO (09:56)
[2024-02-15] MEDS: SENNOSIDES 8.6 MG TABLET PO (09:56)
[2024-02-15 09:57] VITALS: PULSE 62
[2024-02-15] MEDS: GABAPENTIN 300 MG CAPSULE PO ×2 (09:57→12:22)
[2024-02-15] MEDS: amLODIPine BESYLATE 5 MG TABLET PO (09:57)
[2024-02-15] MEDS: TAMSULOSIN HCL 0.4 MG CAPSULE 0.8 MG PO (09:57)
[2024-02-15] MEDS: polyethylene glycoL 3350 17 GM POWD.PACK PO (09:57)
[2024-02-15] MEDS: NAPROXEN 500 MG TABLET PO (09:57)
[2024-02-15] MEDS: carvediloL 3.125 MG TABLET PO (09:57)
[2024-02-15] MEDS: DULoxetine HCL 60 MG CAPSULE.DR PO (09:57)
--- NOTE | 2024-02-15 10:59 | PM.DS ---
DS: Admitting Diagnosis Discharge Date 02/15/2024 Admitting Diagnosis Chest Pain/UTI DS: Discharge Diagnosis Discharge Diagnosis (1) Chest pain: Code(s): R07.9 - Chest pain, unspecified Status: Acute (2) Abdominal pain: Code(s): R10.9 - Unspecified abdominal pain Status: Acute (3) UTI (urinary tract infection): Qualifiers: Hematuria presence: with hematuria Urinary tract infection type: acute cystitis Qualified Code(s): N30.01 - Acute cystitis with hematuria Code(s): N39.0 - Urinary tract infection, site not specified Status: Suspected (4) Chronic anemia: Code(s): D64.9 - Anemia, unspecified Status: Acute (5) Parkinsons disease: Code(s): G20 - Parkinson's disease Status: Acute (6) Chronic kidney disease, stage 3: Qualifiers: Chronic kidney disease stage 3 subtype: stage 3a (GFR 45-59) Qualified Code(s): N18.31 - Chronic kidney disease, stage 3a Code(s): N18.30 - Chronic kidney disease, stage 3 unspecified Status: Acute (7) Essential hypertension: Code(s): I10 - Essential (primary) hypertension Status: Acute (8) Urinary retention: Code(s): R33.9 - Retention of urine, unspecified Status: Acute Plan UTI frequent UTI with indwelling urinary catheter HX ESBL Started on meropenem pending cultures may need 7 days IV ABX therapy Possible cause of patient's abdominal pain WBC 14.9>9.1 Chest pain/ABD pain Atypical chest pain HX cervial spondylosis CT ABD negative CXR with no acute findings serial troponins x3 negative EKG without ischemic changes q.6 hours/ AFIB 61 Echo to look for valvular dysfunction and wall motion: continuous cardiac monitoring HX COPD: Stable, resumed prn inhaler HX HTN: resumed home BP medications HX BPH: Strauss catheter, resumed proscar, oxybutin, flomax HX constipation: Resumed softener and laxative HX GERD: resumed PPI HX anemia: Stable resumed Ferrous Sulfate HX HLD: Resumed statin HX paroxysmal AFib: no AC due to anemia and intermittent hematuria Disposition: Patient discharged to [facility] DS: Summary Hospital Course Reason for hospitalization: Chest Pain/UTI Hospital Course: Chest pain/ABD pain Narrative: Patient is an 84-year-old male who presented to the hospital with complaints of chest pain and ABD pain that started earlier that day.? Patient transported via ambulance from [facility] in [facility] stating he has not been eating well because the food isn't good and he now has ABD pain.? Patient past medical history of BPH with chronic urinary catheter, anemia, COPD, CKD, arthritis, GERD, hypothyroidism, and MARVIN.? Chest pain atypical reproducible and worse with movement of LT arm (Patient with HX cervical spondylosis).? Patient denied SOB, N/V, diarrhea, constipation, dizziness or any urinary complaints however patient has indwelling chronic strauss catheter.? Troponins negative and EKG with RT BBB afib HR 62 no acute ischemic changes.? CT ABD negative for any acute issues however UA + for UTI and patient has HX of ESBL.? Unremarkable labs except for WBC of 14.9 and HGB? 8.6 which is baseline for patient and UA with leukocytes and bacteria.? Patient last UA + for ECOLI on 01/21 and was resistant to p.o. antibiotics patient was discharged with.? Patient was admitted for chest pain/Ischemic R/O and possible ESBL UTI.? Patient started on meropenem IV pending cultures. ACS was ruled out further chest pain shortness a breast troponins remain negative EKGs with no ischemic changes, echocardiogram showed grade 1 diastolic dysfunction LVEF of 60-65%, mild MR, mild TR and mild pulmonary hypertension. Patient with no complaints, denies CP or SOB ECOLI in UAi patient was continued on meropenem due to previous ESBL resistance to Levaquin, however sensitivities reported back and is sensitive to Levaquin. Labs and vital
--- NOTE | 2024-02-15 11:24 | PC.NURSE ---
RN called to give report to nurse at [facility]. RN was transferred by law firm receptionist to extension. No answer on this line. RN left voicemail with call back number.
[2024-02-15 12:19] LABS: SARS-CoV-2 RNA PCR Negative (Negative)
[2024-02-15] MEDS: FERROUS SULFATE 325 MG TABLET DR PO (12:22)
== END 2024-02-15 13:25 ==
LOC: ANHED 23:35 → ANHIMU 02-13 00:59 → ANH3MED 02-13 22:02
PROVIDERS: Emergency Medicine; Nurse Practitioner Family; Admitting Provider General Practice; Emergency Provider Emergency Medicine; PCP Family Medicine; Visit Provider General Practice
DX: R07.89 Other chest pain (principal); N30.01 Acute cystitis with hematuria; B96.20 Unspecified Escherichia coli [E. coli] as the cause of diseases classified elsewhere; R33.9 Retention of urine, unspecified; I13.0 Hypertensive heart and chronic kidney disease with heart failure and stage 1 through stage 4 chronic kidney disease, or unspecified chronic kidney disease; I50.9 Heart failure, unspecified; N18.31 Chronic kidney disease, stage 3a; E78.5 Hyperlipidemia, unspecified; K21.9 Gastro-esophageal reflux disease without esophagitis; I42.9 Cardiomyopathy, unspecified; C95.00 Acute leukemia of unspecified cell type not having achieved remission; D63.1 Anemia in chronic kidney disease; J44.9 Chronic obstructive pulmonary disease, unspecified; F41.8 Other specified anxiety disorders; G47.33 Obstructive sleep apnea (adult) (pediatric); G20.A1 Parkinson's disease without dyskinesia, without mention of fluctuations; N40.0 Benign prostatic hyperplasia without lower urinary tract symptoms; E03.9 Hypothyroidism, unspecified; Z20.822 Contact with and (suspected) exposure to COVID-19; Z85.528 Personal history of other malignant neoplasm of kidney; Z90.5 Acquired absence of kidney; Z79.51 Long term (current) use of inhaled steroids; Z96.0 Presence of urogenital implants
CPT/HCPCS: 36415; 71046; 71260; 74177; 80048; 80053; 81001; 83690; 83735; 84145; 84484; 85025; 85027; 85610; 85730; 87077; 87086; 87088; 87186; 87635; 93005; 93306; 94640; 96365; 96366; 96367; 97161; 97165; 97530; 99285; A9270; G0378; J0696; J2185; J7030; Q9967

== ENCOUNTER 2024-11-15 14:08 | Inpatient (IN) | payer MEDICARE, MEDICAID, SELFPAY ==
[2024-11-15] VITALS (7 sets, daily range): BP systolic 100–120; BP diastolic 57–70; PULSE 60–70; RESP 16–19; TEMP 36.4–37; O2SAT 98–100; BMI 28.4
--- NOTE | ~2024-11-15 | XR_ITS ---
EXAMINATION: XR abdomen/kub 1V DATE: 11/17/2024 14:45 INDICATION: Abdominal discomfort. Constipation. TECHNIQUE: A supine view of the abdomen on 3 radiographs was obtained. COMPARISON: CT abdomen and pelvis 02/12/2024 FINDINGS: The sigmoid colon is distended. There is a small volume of stool in the colon. The small codey wel is normal in caliber. There are surgical clips in the abdomen. There is gaseous distention of the stomach. There is internal fixation of proximal right femur. IMPRESSION: 1. Distended sigmoid colon, which may be adynamic ileus or less likely distal obstruction. Reviewed, dictated and finalized at location B. [employer] IMPRESSION: 1. Distended sigmoid colon, which may be adynamic ileus or less likely distal o bstruction.
--- NOTE | ~2024-11-15 | XR_ITS ---
EXAMINATION: XR knee LT 3V DATE: 11/15/2024 15:32 INDICATION: Left knee injury. TECHNIQUE: 3 views of left knee were obtained. COMPARISON: Left knee radiographs 12/31/2018 FINDINGS: Alignment is normal. No fracture. There is mild tricompartmental osteoarthritis. There is c hondrocalcinosis of the menisci. There is an enthesophyte at the proximal attachment of medial collat eral ligament. There is a small knee joint effusion. IMPRESSION: 1. Mild left knee osteoarthritis. 2. Small left knee joint effusion. Reviewed, dictated and finalized at location B. AND DECK REMOVER
--- NOTE | ~2024-11-15 | CT_ITS ---
EXAMINATION: CT pelvis wo con DATE: 11/15/2024 15:24 INDICATION: Left hip and pelvic pain. TECHNIQUE: Computed tomography (CT) of the pelvis was performed without intravenous contrast. Automat ed exposure control and iterative reconstruction technique were employed. The dose-length product was 426.30 mGy-cm. COMPARISON: CT 02/12/2024 FINDINGS: The prostate is mildly enlarged. There is a Duron catheter in expected position. There are scattered diverticula of the colon. There is wall thickening of the sigmoid colon. There is a 17 mm c yst in left kidney. There are no pathologically enlarged lymph nodes. There is no free intraperitonea l fluid. There is an old healed fracture of proximal right femur with internal fixation. There is sev ere osteoarthritis of the hips. There is moderate lumbar spondylosis. IMPRESSION: 1. Severe osteoarthritis of the hips. 2. Wall thickening of the sigmoid colon, consistent with colitis. Reviewed, dictated and finalized at location B. NTAL RUG STRETCHER
--- NOTE | ~2024-11-15 | XR_ITS ---
EXAMINATION: XR abdomen/kub 1V DATE: 11/19/2024 09:47 INDICATION: Abdominal pain. TECHNIQUE: A supine view of the abdomen on 2 radiographs was obtained. COMPARISON: Abdomen radiographs 11/17/2024, CT 02/12/2024 FINDINGS: There are no dilated loops of bowel. There is a small volume of stool in the colon. There a re surgical clips in right abdomen. There is internal fixation of right femur. IMPRESSION: 1. Nonobstructive bowel gas pattern. Reviewed, dictated and finalized at location B. F GAUGER
--- NOTE | ~2024-11-15 | CT_ITS ---
EXAMINATION: CT brain wo con DATE: 11/15/2024 15:23 INDICATION: Head injury. TECHNIQUE: Computed tomography (CT) of the head was performed without intravenous contrast. The mA wa s adjusted according to patient size. Iterative reconstruction technique was employed. The dose-lengt h product was 681.00 mGy-cm. COMPARISON: Head CT 01/22/2024 FINDINGS: There are old infarcts in the cerebellum bilaterally. There is an old infarct in left parie crys lobe. There is an old infarct in the left frontal lobe deep white matter. There are scattered are as of low attenuation in the cerebral white matter. There is no intracranial hemorrhage, acute infarc tion, or abnormal intracranial mass lesion. The ventricles are normal in size. There is mild mucosal thickening in the paranasal sinuses. There are likely changes of ocular lens replacement surgeries. T he mastoid air cells are normal. IMPRESSION: 1. Old infarcts involving the cerebellum, left parietal lobe, and left frontal lobe. 2. Mild nonspecific cerebral white matter disease, which likely represents chronic small vessel ische latisha disease. Reviewed, dictated and finalized at location B. CUTTER IMPRESSION: 1. Old infarcts involving the cerebellum, left parietal lobe, and left frontal lobe. 2. Mild nonspecific cerebral white matter disease, which likely represents president and chief executive officer sandra small vessel ischemic disease.
--- NOTE | ~2024-11-15 | XR_ITS ---
EXAMINATION: XR knee RT 3V DATE: 11/15/2024 15:32 INDICATION: Right knee trauma TECHNIQUE: Anteroposterior, oblique and crosstable lateral views of the right knee were obtained COMPARISON: None. FINDINGS: Right genu valgus with severe joint space narrowing in the lateral compartment and some remodeling of the lateral tibial plateau. Additional osteoarthritis with mild joint space narrowing and small kinjal inal osteophytes in the medial compartment and moderate joint space narrowing and moderate size eunice nal osteophytes at the patellofemoral compartment. No acute fracture identified. Small right knee paris nt effusion without layering lipohemarthrosis. Atherosclerotic calcifications in the distal thigh and proximal calf. IMPRESSION: 1. Severe lateral compartment predominant tricompartmental osteoarthritis at the right knee with smal l likely reactive knee joint effusion. No acute fracture identified. Reviewed, dictated and finalized at location A. [employer] IMPRESSION: 1. Severe lateral compartment predominant tricompartmental osteoarthritis at th e right knee with small likely reactive knee joint effusion. No acute fracture identified.
--- NOTE | ~2024-11-15 | CT_ITS ---
EXAMINATION: CT abdomen pelvis w con DATE: 11/20/2024 10:50 INDICATION: Left lower quadrant abdominal pain. TECHNIQUE: Computed tomography (CT) of the abdomen and pelvis was performed with 100 mL Omnipaque-350 intravenous contrast. Automated exposure control and iterative reconstruction technique were employe d. The dose-length product was 934.00 mGy-cm. COMPARISON: 02/12/2024 FINDINGS: Small bilateral pleural effusions with dependent atelectasis in the bilateral lower lobes. Calcified right middle lobe nodule consistent with old granulomatous disease. Heart size is normal. Atheroscler otic coronary artery calcifications. No pericardial effusion. Cholecystectomy clips at the gallbladde r fossa. Liver, pancreas and bilateral adrenal glands are normal. Mild splenomegaly measuring 14.4 cm maximal length. Status post right nephrectomy. There are couple left renal cysts the larger the lowe r pole measuring 2.0 cm. There is moderate colonic diverticulosis with a sigmoid predominance. There is no adjacent inflammatory change to suggest diverticulitis. No bowel obstruction. The appendix is not visualized. No pericecal inflammatory change to suggest acute appendicitis. Small amount of gas and a Duron catheter within the decompressed bladder. No free intraperitoneal gas or fluid. No pathol ogically enlarged abdominal or pelvic lymphadenopathy. Mild lumbar dextrocurvature with moderate spon dylosis. Old healed internally fixed intertrochanteric fracture the proximal right femur. IMPRESSION: 1. Small bilateral pleural effusions with bibasilar dependent atelectasis. 2. Diverticulosis. Reviewed, dictated and finalized at location A. OUND MIXER
--- NOTE | ~2024-11-15 | XR_ITS ---
EXAMINATION: XR chest 1V portable DATE: 11/15/2024 14:41 INDICATION: Weakness. TECHNIQUE: A single frontal view of the chest was obtained. COMPARISON: Chest 2 views 02/12/2024 FINDINGS: A calcified right lung nodule is consistent with old granulomatous disease. No pleural effu jenn or pneumothorax. The heart size is normal. IMPRESSION: 1. No acute cardiopulmonary disease. Reviewed, dictated and finalized at location B. ICAL THERAPY INSTRUCTOR
--- NOTE | 2024-11-15 14:21 | ECG_ITS ---
Test Date: 2024-11-15 14:25:25 Measurements Intervals [place] Rate: 63 P: 0 ID: 0 QRS: -50 QRSD: 134 T: 19 QT: 438 QTc: 452 Interpretive Statements JUNCTIONAL RHYTHM RIGHT BUNDLE BRANCH BLOCK [120+ ms QRS DURATION, UPRIGHT V1, 40+ ms S IN I/aVL/V4/V5/V6] MODERATE VOLTAGE CRITERIA FOR LVH, CONSIDER NORMAL VARIANT [MEETS CRITERIA IN ONE OF: R(aVL), S(V1), R(V5), R(V5/V6)+S(V1)] ANTERIOR MYOCARDIAL INFARCTION , PROBABLY OLD [40+ ms Q WAVE AND/OR ST/T ABNORMALITY IN V3/V4] INFERIOR MYOCARDIAL INFARCTION , PROBABLY OLD [40+ ms Q WAVE AND/OR ST/T ABNORMALITY IN II/aVF] No previous ECG available for comparison Electronically Signed On 11-15-2024 17:59:30 [employer] REPORT DEVELOPER by Nj Ordaz M.D.
[2024-11-15 14:32] LABS: Hematocrit 30.1 % (42.0-52.0); Hemoglobin 9.5 g/dL (14.0-18.0); Mean Corpuscular HGB Conc 31.6 g/dl (32-36); Mean Corpuscular Hemoglobin 27.9 pg (26-34); Mean Corpuscular Volume 88.3 fl (80-100); Mean Platelet Volume 10.8 fl (7.4-10.4); Platelet Count Result 192 k/mm3 (150-375); Red Blood Count 3.41 M/mm3 (4.6-6.20); Red Cell Distribution Width 18.9 % (11.5-14.5); White Blood Count 10.3 K/mm3 (4.5-10.0)
[2024-11-15 14:51] LABS: Alanine Aminotransferase 7 U/L (6-50); Albumin Level 3.7 g/dL (3.5-5.1); Alkaline Phosphatase 71 U/L (38-126); Anion Gap 16 mmol/L (4-12); Aspartate Amino Transferase 17 U/L (17-59); Bilirubin,Total 0.7 mg/dL (0.2-1.3); Blood Urea Nitrogen 20 mg/dL (9-20); Calcium 9.3 mg/dL (8.4-10.2); Carbon Dioxide 21 mmol/L (22-30); Chloride 93 mmol/L (98-107); Estimated CRCL calculation 35 ml/min; Estimated Glomerular Filt Rate 47; Glucose 129 mg/dL (65-110); Potassium 3.9 mmol/L (3.4-5.0); Sodium 130 mmol/L (137-145)
[2024-11-15 15:00] LABS: Eosinophils Percent Manual 2 % (0-4); Lymphocytes Absolute Manual 3.91 K/mm3 (1.1-4.5); Monocytes Absolute Manual 0.92 K/mm3 (0.1-0.90); Monocytes Percent Manual 9 % (3-9); Neutrophils Percent Manual 51 % (46-73); Total Cells Counted 100
[2024-11-15 15:01] LABS: Anisocytosis 3+; Hypochromasia 1+; Platelet Estimate Adequate (Adequate); Schistocytes None Seen
[2024-11-15 16:54] LABS: Add Urine Microscopic? YES; Appearance Urine Turbid (Clear); Bacteria Urine 1+ /hpf; Bilirubin Urine Negative (Negative); Blood Urine 2+ (Negative); Color Urine Yellow (Yellow); Glucose Urine UA Negative (Negative); Ketones Urine Negative (Negative); Leukocyte Esterase Ur 3+ LEU/UL (Negative); Need Manual Microscopic Reviewed; Nitrate Urine Negative (Negative); Protein Urine Trace mg/dL (Negative); Specific Grav Ur 1.006 (1.001-1.035); Squamous Epithelial Cell Urine None Seen /hpf (Few); Urobilinogen Urine 0.2 mg/dL (<2.0); WBC Urine >100 /hpf (0-3); pH Urine 5.5 (5.0-9.0)
--- NOTE | 2024-11-15 17:08 | ED_ITS ---
HPI - General Adult General Chief complaint: Syncope Stated complaint: syncopal Time Seen by Provider: 11/15/24 14:26 History of Present Illness HPI narrative: 84 old male presenting to the emergency department for evaluation for having a syncopal episode at his care facility. Patient was attempting to use the bathroom when he reportedly fell from the toilet. Patient was unsure if he had struck his head but patient does feel excessively fatigued. 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 Patient was complaining pain to his buttock and bilateral knees. Related Data Home Medications ?Medication ?Instructions ?Recorded ?Confirmed ?Last Taken ?Type alendronate 70 mg tablet 70 mg PO WEEKLY 06/03/23 11/15/24 11/17/23 History bisacodyl 10 mg rectal suppository 10 mg RECTAL DAILY PRN Constipation 06/03/23 11/15/24 11/17/23 History (Dulcolax (bisacodyl)) carvedilol 3.125 mg tablet 3.125 mg PO BID 11/22/23 11/15/24 Unknown History dextran 70-hypromellose 0.1 %-0.3 1 drp EACH EYE Q12H PRN Dry Eyes 11/22/23 11/15/24 Unknown History % eye drops (Artificial Tears (dextran 70-hypromellose)) furosemide 20 mg tablet 40 mg PO DAILY 11/22/23 11/15/24 Unknown History gabapentin 300 mg capsule 300 mg PO BID 11/22/23 11/15/24 Unknown History magnesium hydroxide 400 mg/5 mL 30 ml PO HS PRN Constipation 11/22/23 11/15/24 Unknown History oral suspension (Milk of Magnesia) omeprazole 20 mg capsule,delayed 20 mg PO DAILY 11/22/23 11/15/24 Unknown History release oxybutynin chloride 10 mg 10 mg PO DAILY 11/22/23 11/15/24 Unknown History tablet,extended release 24 hr atorvastatin 80 mg tablet 80 mg PO HS 12/04/23 11/15/24 Unknown History sennosides 8.6 mg tablet (Senokot) 8.6 mg PO BID 12/04/23 11/15/24 Unknown History hydrocodone 5 mg-acetaminophen 325 1 tablet PO Q8H PRN Pain (Scale 02/13/24 11/15/24 Unknown History mg tablet Score 4-6) ondansetron 8 mg disintegrating 8 mg PO Q8H 04/13/24 11/15/24 Unknown History tablet allopurinol 100 mg tablet 100 mg PO DAILY 11/15/24 11/15/24 Unknown History amlodipine 5 mg tablet 2.5 mg PO QAM 11/15/24 11/15/24 Unknown History ascorbic acid (vitamin C) 500 mg 500 mg PO BID 11/15/24 11/15/24 Unknown History capsule calcium 600 mg (as 1 tablet PO BID 11/15/24 11/15/24 Unknown History carbonate)-vitamin D3 10 mcg (400 unit) tablet (Calcium 600 + D(3)) cholecalciferol (vitamin D3) 125 5,000 unit PO DAILY 11/15/24 11/15/24 Unknown History mcg (5,000 unit) tablet (Vitamin D3) ferrous sulfate 325 mg (65 mg 325 mg PO BID 11/15/24 11/15/24 Unknown History iron) tablet,delayed release folic acid 1 mg tablet 1 mg PO DAILY 11/15/24 11/15/24 Unknown History loratadine 10 mg tablet (Allergy 10 mg PO DAILY 11/15/24 11/15/24 Unknown History Relief (loratadine)) methotrexate sodium 2.5 mg tablet 2.5 mg PO WEEKLY 11/15/24 11/15/24 Unknown History potassium chloride 10 mEq 10 meq PO DAILY 11/15/24 11/15/24 Unknown History tablet,extended release spironolactone 25 mg tablet 25 mg PO DAILY 11/15/24 11/15/24 Unknown History Allergies Allergy/AdvReac Type Severity Reaction Status Date / Time neomycin Allergy Unknown rash Verified 11/15/24 14:26 Sulfa (Sulfonamide Allergy Unknown Rash Verified 11/15/24 14:26 Antibiotics) castor oil AdvReac Intermediate Nausea and Verified 11/15/24 14:26 Vomiting erythromycin base AdvReac Intermediate SHAKING, Verified 11/15/24 14:26 HEADACHE Review of Systems 2 Review of Systems: All systems reviewed & are unremarkable except as noted in HPI and below PMFSH Past Medical History Medical History (Updated 11/15/24 @ 19:18 by Hamzah Vu MD) Right knee DJD Pain in right knee Abdominal pain Chest pain History of frequent headaches Colitis Hematuria Diastolic dysfunction Echo 01/2022: EF 60 65% Closed fracture of neck of right femur Chronic obstructive pulmonary disease Depression with anxiety Hypothyroidism Benign prostatic hyperplasia Arthritis Degenerative disc disease Renal cell carcinoma of right kidney Status post right nephrectomy. Gastroesophageal reflux disease Silicosis Parkinsons disease Obstructive sleep apnea Chronic anemia Chronic kidney disease, stage 3 Baseline creatinine ranges between 1.30 and 1.40. Degenerative arthritis of knee, bilateral Chronic lymphocytic leukemia Cognitive impairment Essential hypertension Parkinson disease Primary osteoarthritis of both knees Stage III chronic kidney disease Venous stasis dermatitis of both lower extremities Surgical History Surgical History History of arthroscopy of right knee History of cholecystectomy History of appendectomy History of repair of left rotator cuff History of cataract extraction History of right nephrectomy (2003) History of back surgery Family History Family History Father Family history of liver disease Family history of lung cancer Patient's father is Family history of primary malignant neoplasm of liver Mother Family history of heart disease in male family member before age 55 Patient's mother is Family history of coronary artery disease Acute myocardial infarction Sibling Family history of lung cancer Family history of malignant neoplasm of bone Patient's sister is Patient's brother is Malignant neoplasm of prostate Grandparent Family history of arthritis Other Family history of malignant neoplasm of kidney Social History Social History Social History: The patient resides at [facility]. His son lives in the local area. The patient is retired from [employer]. No alcohol, tobacco, or illicit substance. . 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 EYES: PERRLA/EOMI, conjunctivae clear. NOSE: Normal no drainage EARS:TMS clear with good light reflex. THROAT: Pharynx clear, no exudate. NECK: Supple. No adenopathy, no masses. RESPIRATORY: Airway patent, respirations nonlabored. Clear to auscultation bilaterally, no rales, rhonchi, wheezing. CARDIOVASCULAR: Regular rate and rhythm without murmurs rubs or gallops. ABDOMINAL: Soft, nontender, nondistended, normal bowel sounds MUSCULOSKELETAL: Moves all extremities. Strength/ROM intact, No edema, No calf tenderness. NEURO: Alert. With no focal neuro deficits SKIN: Warm, dry. Normal Color Course Vital Signs Vital signs: Vital Signs Temperature 98.6 F 11/15/24 14:14 Pulse Rate 66 11/15/24 14:14 Respiratory Rate 19 11/15/24 14:14 Blood Pressure 120/69 11/15/24 14:14 Pulse Oximetry 98 11/15/24 14:14 Oxygen Delivery Room Air 11/15/24 14:14 Temperature 97.5 F L 11/15/24 18:31 Pulse Rate 66 11/15/24 18:31 Respiratory Rate 18 11/15/24 18:31 Blood Pressure 104/70 11/15/24 18:31 Pulse Oximetry 100 11/15/24 18:31 Oxygen Delivery Room Air 11/15/24 14:14 Medical Decision Making [facility] Narrative Medical decision making narrative: [age] old male presents emergency department for evaluation for a syncopal episode and increased generalized fatigue. UA was concerning for urinary tract infection. Duron catheter was exchanged and sample was taken from the new Duron catheter. Due to patient's history of ESBL he was started on meropenem and this was renally adjusted. Patient was afebrile but does have a leukocytosis of 10.3, hemoglobin is 9.5 which is similar to his baseline. Patient did have a creatinine of 1.4 which may be worse than his previous baseline. Patient had negative imaging of his knees and pelvis, head CT was negative for acute intracranial abnormality and chest x-ray showed no acute cardiopulmonary abnormality. Due to the patient feeling excessively fatigued having the syncopal episode patient was admitted to [facility] for further evaluation, patient was started on antibiotics for his urinary tract infection with urine culture pending. Case was discussed with hospitalist patient was accepted for admission. Differential Diagnosis Differential Diagnosis: COVID, RSV, influenza, pneumonia, head injury, pelvic injury, UTI, urinary colonization Vital Signs Vital Signs: Vital Signs Temperature 98.6 F 11/15/24 14:14 Pulse Rate 66 11/15/24 14:14 Respiratory Rate 19 11/15/24 14:14 Blood Pressure 120/69 11/15/24 14:14 Pulse Oximetry 98 11/15/24 14:14 Oxygen Delivery Room Air 11/15/24 14:14 Temperature 97.5 F L 11/15/24 18:31 Pulse Rate 66 11/15/24 18:31 Respiratory Rate 18 11/15/24 18:31 Blood Pressure 104/70 11/15/24 18:31 Pulse Oximetry 100 11/15/24 18:31 Oxygen Delivery Room Air 11/15/24 14:14 Lab Data Lab results reviewed: Yes I reviewed the patient's lab results. 11/15/24 14:23 11/15/24 14:23 Labs: Lab Results 11/15/24 11/15/24 Range/Units 14:23 16:28 WBC 10.3 H (4.5-10.0) K/mm3 RBC 3.41 L (4.6-6.20) M/mm3 Hgb 9.5 L (14.0-18.0) g/dL Hct 30.1 L (42.0-52.0) % MCV 88.3 (80-100) fl MCH 27.9 (26-34) pg MCHC 31.6 L (32-36) g/dl RDW 18.9 H (11.5-14.5) % Plt Count 192 (150-375) k/mm3 MPV 10.8 H (7.4-10.4) fl Immature Gran % (Auto) Not Reportable Neut % (Auto) Not Reportable Lymph % (Auto) Not Reportable [place] % (Auto) Not Reportable Eos % (Auto) Not Reportable Baso % (Auto) Not Reportable Lymph # (Auto) Not Reportable [place] # (Auto) Not Reportable Eos # (Auto) Not Reportable Baso # (Auto) Not Reportable Abs Immat Gran (auto) Not Reportable Absolute Neuts (auto) Not Reportable Absolute Nucleated RBC Not Reportable Total Counted 100 Neutrophils % (Manual) 51 (46-73) % Lymphocytes % (Manual) 38.0 (18-44) % Monocytes % (Manual) 9 (3-9) % Eosinophils % (Manual) 2 (0-4) % Nucleated RBC % Not Reportable Abs Lymphs (Manual) 3.91 (1.1-4.5) K/mm3 Abs Monocytes (Manual) 0.92 H (0.1-0.90) K/mm3 Absolute Eos (Manual) 0.20 (0.02-0.50) K/mm3 Platelet Estimate Adequate (Adequate) Hypochromasia 1+ Anisocytosis 3+ Schistocytes None seen Sodium 130 L (137-145) mmol/L Potassium 3.9 (3.4-5.0) mmol/L Chloride 93 L (98-107) mmol/L Carbon Dioxide 21 L (22-30) mmol/L Anion Gap 16 H (4-12) mmol/L BUN 20 D (9-20) mg/dL Creatinine 1.44 H (0.7-1.3) mg/dL Estim Creat Clear Calc 35 ml/min Estimated GFR 47 L (59 - ) Glucose 129 H (65-110) mg/dL Calcium 9.3 (8.4-10.2) mg/dL Total Bilirubin 0.7 (0.2-1.3) mg/dL AST 17 (17-59) U/L ALT 7 (6-50) U/L Alkaline Phosphatase 71 (38-126) U/L Total Protein 7.0 (6.3-8.2) g/dL Albumin 3.7 (3.5-5.1) g/dL Urine Color Yellow (Yellow) Urine Appearance Turbid H (Clear) Urine pH 5.5 (5.0-9.0) Ur Specific Burt 1.006 (1.001-1.035) Urine Protein Trace (Negative) mg/dL Urine Glucose (UA) Negative (Negative) mg/dL Urine Ketones Negative (Negative) mg/dL Ur Blood (Man) 2+ H (Negative) Urine Nitrate Negative (Negative) Urine Bilirubin Negative (Negative) Urine Urobilinogen 0.2 (<2.0) mg/dL Add Ur Microanalysis Reviewed Leukocyte Esterase Rfl 3+ H (Negative) PARUL/UL Urine RBC 6-10 H (0-2) /hpf Urine WBC >100 H (0-3) /hpf Ur Squamous Epith Cells None seen (Few) /hpf Urine Bacteria 1+ H /hpf Urine Casts 11-20 Imaging Data Radiologist's impression: Impressions Chest X-Ray 11/15/24 14:47 IMPRESSION: 1. No acute cardiopulmonary disease. Head CT 11/15/24 15:25 IMPRESSION: 1. Old infarcts involving the cerebellum, left parietal lobe, and left frontal lobe. 2. Mild nonspecific cerebral white matter disease, which likely represents chronic small vessel ischemic disease. Pelvis CT 11/15/24 15:28 IMPRESSION: 1. Severe osteoarthritis of the hips. 2. Wall thickening of the sigmoid colon, consistent with colitis. Knee X-Ray 11/15/24 15:34 IMPRESSION: 1. Mild left knee osteoarthritis. 2. Small left knee joint effusion. Knee X-Ray 11/15/24 15:35 IMPRESSION: 1. 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 No acute fracture identified. Discharge Plan Discharge Clinical Impression: Syncope and collapse, Urinary tract infection, Acute bilateral knee pain Patient Disposition: Still a Patient Condition: Serious
[2024-11-15] MEDS: MEROPENEM 1 GM/NS 100 ML 1 GM/100 ML BAG IVPB (17:47)
--- NOTE | 2024-11-15 18:28 | ADMGEN ---
This patient, Florencio Bird, was admitted to 2 Medical Room 243-. Patient/family oriented to hospital policies and general routines including ID bracelet, bed and alarms, visiting hours, pain management, procedures, bathroom and other care routines, personal items, smoking policy, room service/diet, and visiting hours. Information on how to activate the Rapid Response Team has been discussed. Patient/Family are encouraged to report perceived risks to care and to ask questions if they do not understand what they are told or what they should do.
--- NOTE | 2024-11-15 21:06 | PM.IMHP ---
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 The patient himself states that he was transferring to the toilet from his wheelchair when his legs gave out and he fell. Although the patient is not the best historian has history of cognitive impairment. At the time my evaluation he was confused as to the month and year. He had also seemed confused for nursing staff and kept insisting that they get 1 of his personal belongings from the cabinet. She had to remind him that he was not at the skilled nursing. At the time my evaluation he was aware that he was at [facility]. He told me that he has been feeling weak. He initially told the ER that he had been feeling weak for about 1 week. He then told me that he had been feeling weak and fatigued for about 3 weeks. He a stated that he usually feels weak when he has a UTI but he has not had any fevers, leukocytosis or hematuria that he usually has when he has a UTI. Nursing staff reported that the patient's chronic indwelling Duron catheter appeared dirty on arrival to the ER and his catheter was exchanged. He is currently has about a L of clear pale yellow urine in his catheter bag. He has remained afebrile since presentation. He reports generalized abdominal discomfort but reports his last bowel movement was a couple of days ago. It is unclear if he may have had a syncopal episode while having a bowel movement at the skilled nursing. On physical exam the patient was noted have some erythema to the posterior oropharynx most specifically to the left posterior oropharynx any did have some associated left anterior cervical lymphadenopathy it was tender to palpation. He reports that his throat feels raw and he has had some nasal congestion for the last week. The patient is chronically chilled and states that he is cold all the time. When I arrived at the patient's bedside he had multiple hospital willing gets in place and 2 of his own personal blankets covering the bed. The patient had to be reminded several times that he had had several drinks of water and that nursing staff had assisted him in bathing him and repositioning him. He then again asked for something to drink. On further questioning he was asking for Ensure that he stated that we were supposed to have provided him. I think that the patient was supposed be started on Ensure at the skilled nursing. I had already discussed with the patient while I was in the room that we could not get him ensure in the middle the night in that we would ask dietary in the morning. Before I could leave the room he again asked both myself and the nursing staff for Ensure. Review of Systems Review of Systems: Twelve point review of systems was attempted but accuracy of review of systems is not the best given the patient's history of cognitive impairment and fact that he is only alert oriented to person and place at the time of my evaluation. [facility] Past Medical History Medical History (Updated 11/16/24 @ 00:53 by Salma Levine DO) Depression with anxiety History of infection due to ESBL Escherichia coli Urinary retention due to benign prostatic hyperplasia Venous stasis dermatitis of both lower extremities Lung nodule Collagenous colitis Chronic indwelling Duron catheter Diastolic dysfunction Echo 01/2022: EF 60 65% Chronic obstructive pulmonary disease Hypothyroidism Benign prostatic hyperplasia Arthritis Degenerative disc disease Renal cell carcinoma of right kidney Status post right nephrectomy. Gastroesophageal reflux disease Silicosis Obstructive sleep apnea Chronic anemia Chronic kidney disease, stage 3 Baseline creatinine ranges between 1.30 and 1.40. Degenerative arthritis of knee, bilateral Chronic lymphocytic leukemia Cognitive impairment Essential hypertension Parkinson disease Primary osteoarthritis of both knees Surgical History Surgical History (Updated 11/15/24 @ 21:26 by Salma Levine DO) Status post open reduction with internal fixation of fracture Right femoral neck fracture History of arthroscopy of right knee History of cholecystectomy History of appendectomy History of repair of left rotator cuff History of cataract extraction History of right nephrectomy (2003) History of back surgery Family History Family History Father Family history of liver disease Family history of lung cancer Patient's father is Family history of primary malignant neoplasm of liver Mother Family history of heart disease in male family member before age 55 Patient's mother is Family history of coronary artery disease Acute myocardial infarction Sibling Family history of lung cancer Family history of malignant neoplasm of bone Patient's sister is Patient's brother is Malignant neoplasm of prostate Grandparent Family history of arthritis Other Family history of malignant neoplasm of kidney Social History Social History (Updated 11/16/24 @ 00:46 by Salma Levine DO) Social History: He is . The patient resides at [facility]. His son lives in the local area. The patient is retired from [employer]. No alcohol, tobacco, or illicit substance. He uses wheelchair for mobility and can stand to pivot. Code status: DNR/DNI Surrogate decision maker: Mark Bird Smoking status: Never smoker Second hand tobacco smoke exposure: No Alcohol intake: never Substance use: never Substance use type: does not use Do You Feel Safe in your Home?: Yes Lack of Transportation: No Lack of Food: Never True Current Housing: I Have Housing Concerned About Future Housing: No Difficulty Paying Gas/Electric Bills: No Difficulty Paying for Meds: No Currently Unemployed: No Education: High School Diploma/GED Difficulty w/ Childcare or Family Care: No Living arrangements: skilled nursing Additional occupation/education comments: 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 [employer] Gender identity (if verbalized by the patient): Male Spiritual care concerns: No Meds Home Medications and Allergies Home Medications ?Medication ?Instructions ?Recorded ?Confirmed ?Type levothyroxine 100 mcg tablet 100 mcg PO DAILY #90 tabs 10/17/22 11/15/24 Rx alendronate 70 mg tablet 70 mg PO WEEKLY 06/03/23 11/15/24 History bisacodyl 10 mg rectal suppository 10 mg RECTAL DAILY PRN Constipation 06/03/23 11/15/24 History (Dulcolax (bisacodyl)) finasteride 5 mg tablet 5 mg PO QHS #90 tabs 06/27/23 11/15/24 Rx tamsulosin 0.4 mg capsule 0.8 mg (2 x 0.4 mg) PO DAILY #180 06/27/23 11/15/24 Rx caps albuterol sulfate 90 mcg/actuation 1 puff inhalation Q4H PRN 08/18/23 11/15/24 Rx aerosol inhaler shortness of breath or wheezing #8.5 grams duloxetine 60 mg capsule,delayed 60 mg PO DAILY #30 caps 08/18/23 11/15/24 Rx release lidocaine 5 % topical patch 1 patch topical DAILY #15 ea 08/30/23 11/15/24 Rx (Lidoderm) carvedilol 3.125 mg tablet 3.125 mg PO BID 11/22/23 11/15/24 History dextran 70-hypromellose 0.1 %-0.3 1 drp EACH EYE Q12H PRN Dry Eyes 11/22/23 11/15/24 History % eye drops (Artificial Tears (dextran 70-hypromellose)) furosemide 20 mg tablet 40 mg PO DAILY 11/22/23 11/15/24 History gabapentin 300 mg capsule 300 mg PO BID 11/22/23 11/15/24 History magnesium hydroxide 400 mg/5 mL 30 ml PO HS PRN Constipation 11/22/23 11/15/24 History oral suspension (Milk of Magnesia) omeprazole 20 mg capsule,delayed 20 mg PO DAILY 11/22/23 11/15/24 History release oxybutynin chloride 10 mg 10 mg PO DAILY 11/22/23 11/15/24 History tablet,extended release 24 hr atorvastatin 80 mg tablet 80 mg PO HS 12/04/23 11/15/24 History sennosides 8.6 mg tablet (Senokot) 8.6 mg PO BID 12/04/23 11/15/24 History hydrocodone 5 mg-acetaminophen 325 1 tablet PO Q8H PRN Pain (Scale 02/13/24 11/15/24 History mg tablet Score 4-6) carbidopa 25 mg-levodopa 100 mg 3 tablet PO TID #240 tabs 04/13/24 11/15/24 Rx tablet (Sinemet) ondansetron 8 mg disintegrating 8 mg PO Q8H 04/13/24 11/15/24 History tablet allopurinol 100 mg tablet 100 mg PO DAILY 11/15/24 11/15/24 History amlodipine 5 mg tablet 2.5 mg PO QAM 11/15/24 11/15/24 History ascorbic acid (vitamin C) 500 mg 500 mg PO BID 11/15/24 11/15/24 History capsule calcium 600 mg (as 1 tablet PO BID 11/15/24 11/15/24 History carbonate)-vitamin D3 10 mcg (400 unit) tablet (Calcium 600 + D(3)) cholecalciferol (vitamin D3) 125 5,000 unit PO DAILY 11/15/24 11/15/24 History mcg (5,000 unit) tablet (Vitamin D3) ferrous sulfate 325 mg (65 mg 325 mg PO BID 11/15/24 11/15/24 History iron) tablet,delayed release folic acid 1 mg tablet 1 mg PO DAILY 11/15/24 11/15/24 History loratadine 10 mg tablet (Allergy 10 mg PO DAILY 11/15/24 11/15/24 History Relief (loratadine)) methotrexate sodium 2.5 mg tablet 2.5 mg PO WEEKLY 11/15/24 11/15/24 History potassium chloride 10 mEq 10 meq PO DAILY 11/15/24 11/15/24 History tablet,extended release spironolactone 25 mg tablet 25 mg PO DAILY 11/15/24 11/15/24 History Allergies Allergy/AdvReac Type Severity Reaction Status Date / Time neomycin Allergy Unknown rash Verified 11/15/24 14:26 Sulfa (Sulfonamide Allergy Unknown Rash Verified 11/15/24 14:26 Antibiotics) castor oil AdvReac Intermediate Nausea and Verified 11/15/24 14:26 Vomiting erythromycin base AdvReac Intermediate SHAKING, Verified 11/15/24 14:26 HEADACHE Vital Signs Vital Signs - 24 hr 11/15/24 14:14 11/15/24 15:48 11/15/24 15:51 Temperature 98.6 F Pulse Rate 66 67 67 Respiratory Rate 19 16 Blood Pressure 120/69 108/59 L 108/57 L Pulse Oximetry 98 100 Oxygen Delivery Room Air 11/15/24 15:51 11/15/24 17:49 11/15/24 18:31 Temperature 97.5 F L Pulse Rate 67 70 66 Respiratory Rate 19 18 Blood Pressure 105/61 100/60 104/70 Pulse Oximetry 100 100 Oxygen Delivery 11/15/24 20:56 Temperature 97.9 F Pulse Rate 60 Respiratory Rate 18 Blood Pressure 111/60 Pulse Oximetry 100 Oxygen Delivery Exam Narrative: Weight 89.9 kg BMI 28.4 Const: Other: Elderly, debilitated, well-developed well-nourished, no acute distress, lying in bed with the head of bed at about 30? and covered by piles of blankets HENMT: Other: Mucous membranes are tacky, mild posterior or pharyngeal erythema most notably on the left, head is normocephalic atraumatic, dentures in upper and lower jaw Eyes: Other: Pupils are equal and reactive with evidence of bilateral lens replacements, positive conjunctival pallor Resp: Other: Clear to auscultation bilaterally, no increased work of breathing Cardio: Other: No murmurs, 2+ bilateral radial pulses 2+ right pedal pulse, 1+ left pedal pulse GI: Other: Soft, nondistended, normoactive bowel sounds, mild generalized tenderness to palpation : Other: Duron catheter in place with about a L of clear pale yellow urine in catheter bag, uncircumcised male Skin: Other: Generalized pallor, normal temperature to touch, non jaundice Neuro: Other: Alert oriented person and place, confused as to the month in year he thought the month was July or August and that the year was 2023, speech is clear but slow, he does developed hoarseness to his voice with speaking, he has cogwheel rigidity of bilateral upper extremities, sensation is intact, no facial asymmetry, pupils are equal and reactive, extraocular movements intact, no localizing neurologic deficits noted during the course of conversation, poor short-term memory Extrem: Other: No clubbing, no cyanosis, no edema, patient has stiffness and rigidity of extremities consistent with his history of Parkinson's, has some uneven skin tone to the top of the left foot but no obvious erythema or increased warmth Psych: Other: Anxious, pleasant and cooperative, difficult to assess judgment given patient's confusion H&P: Results Labs Labs: Laboratory Tests 11/15/24 14:23 11/15/24 14:23 11/15/24 11/15/24 14:23 16:28 WBC 10.3 H RBC 3.41 L Hgb 9.5 L Hct 30.1 L MCV 88.3 MCH 27.9 MCHC 31.6 L RDW 18.9 H Plt Count 192 MPV 10.8 H Immature Gran % (Auto) Not Reportable Neut % (Auto) Not Reportable Lymph % (Auto) Not Reportable Dare % (Auto) Not Reportable Eos % (Auto) Not Reportable Baso % (Auto) Not Reportable Lymph # (Auto) Not Reportable Dare # (Auto) Not Reportable Eos # (Auto) Not Reportable Baso # (Auto) Not Reportable Abs Immat Gran (auto) Not Reportable Absolute Neuts (auto) Not Reportable Absolute Nucleated RBC Not Reportable Total Counted 100 Neutrophils % (Manual) 51 Lymphocytes % (Manual) 38.0 Monocytes % (Manual) 9 Eosinophils % (Manual) 2 Nucleated RBC % Not Reportable Abs Lymphs (Manual) 3.91 Abs Monocytes (Manual) 0.92 H Absolute Eos (Manual) 0.20 Platelet Estimate Adequate Hypochromasia 1+ Anisocytosis 3+ Schistocytes None seen Sodium 130 L Potassium 3.9 Chloride 93 L Carbon Dioxide 21 L Anion Gap 16 H BUN 20 D Creatinine 1.44 H Estim Creat Clear Calc 35 Estimated GFR 47 L Glucose 129 H Calcium 9.3 Total Bilirubin 0.7 AST 17 ALT 7 Alkaline Phosphatase 71 Total Protein 7.0 Albumin 3.7 Urine Color Yellow Urine Appearance Turbid H Urine pH 5.5 Ur Specific [place] 1.006 Urine Protein Trace Urine Glucose (UA) Negative Urine Ketones Negative Ur Blood (Man) 2+ H Urine Nitrate Negative Urine Bilirubin Negative Urine Urobilinogen 0.2 Add Ur Microanalysis Reviewed Leukocyte Esterase Rfl 3+ H Urine RBC 6-10 H Urine WBC >100 H Ur Squamous Epith Cells None seen Urine Bacteria 1+ H Urine Casts 11-20 Impressions Chest X-Ray 11/15/24 14:47 IMPRESSION: 1. No acute cardiopulmonary disease. Head CT 11/15/24 15:25 IMPRESSION: 1. Old infarcts involving the cerebellum, left parietal lobe, and left frontal lobe. 2. Mild nonspecific cerebral white matter disease, which likely represents chronic small vessel ischemic disease. Pelvis CT 11/15/24 15:28 IMPRESSION: 1. Severe osteoarthritis of the hips. 2. Wall thickening of the sigmoid colon, consistent with colitis. Knee X-Ray 11/15/24 15:34 IMPRESSION: 1. Mild left knee osteoarthritis. 2. Small left knee joint effusion. Knee X-Ray 11/15/24 15:35 IMPRESSION: 1. 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 No acute fracture identified. EKG: Measurements Intervals [place] Rate: 63 P: 0 TX: 0 QRS: -50 QRSD: 134 T: 19 QT: 438 QTc: 452 Interpretive Statements JUNCTIONAL RHYTHM RIGHT BUNDLE BRANCH BLOCK [120+ ms QRS DURATION, UPRIGHT V1, 40+ ms S IN I/aVL/V4/V5/V6] MODERATE VOLTAGE CRITERIA FOR LVH, CONSIDER NORMAL VARIANT [MEETS CRITERIA IN ONE OF: R(aVL), S(V1), R(V5), R(V5/V6)+S(V1)] ANTERIOR MYOCARDIAL INFARCTION , PROBABLY OLD [40+ ms Q WAVE AND/OR ST/T ABNORMALITY IN V3/V4] INFERIOR MYOCARDIAL INFARCTION , PROBABLY OLD [40+ ms Q WAVE AND/OR ST/T ABNORMALITY IN II/aVF] No previous ECG available for comparison Assessment and Plan Assessment and plan (1) Syncope and collapse: Code(s): R55 - Syncope and collapse Status: Acute (2) Chronic indwelling Duron catheter: Code(s): Z97.8 - Presence of other specified devices Status: Acute (3) Cognitive impairment: Code(s): R41.89 - Other symptoms and signs involving cognitive functions and awareness Status: Acute (4) History of infection due to ESBL Escherichia coli: Code(s): Z86.19 - Personal history of other infectious and parasitic diseases Status: Acute (5) Sore throat: Code(s): J02.9 - Acute pharyngitis, unspecified Status: Acute (6) Lymphadenopathy of left cervical region: Code(s): R59.0 - Localized enlarged lymph nodes Status: Acute Plan Patient had syncopal event with noted junctional rhythm on EKG. No overt arrhythmia on telemetry. Will monitor on telemetry. Since the patient was on the commode he could have had some vagovagal syncope due to bowel movement. Will have nursing staff check orthostatic vital signs although blood pressures supine and sitting in the ER worst stable without evidence of positional tachycardia. Patient is a poor historian at baseline to is difficult to tell. Patient is having generalized weakness but does not have any significant white or fever. His UA is not normal but he has a chronic indwelling Duron catheter. I am somewhat less suspicious for acute UTI. However urine cultures have been obtained and are pending. Unfortunately the patient does have a baseline known history of ESBL E coli last treated in January of 2024. He was started on meropenem in the ER for possible UTI however given his lack of fever or white count at this time I would stop the antibiotics and just monitor, as this is likely chronic colonization for the patient. If the patient develops worsening leukocytosis or fever then will reinitiate antibiotic therapy. Further details of preceding symptoms were difficult to obtain due to patient's history of cognitive impairment. Patient's blood pressures and vital signs were otherwise stable will resume the patient's home antihypertensives. BPH medications, chronic pain medications and levothyroxine. The patient does have left posterior oral pharyngeal erythema with associated left anterior cervical lymphadenopathy that is tender to palpation. Will check COVID flu RSV and strep PCR to further evaluate. The patient has Chloraseptic lozenges at bedside. Patient has been admitted as observation status. Quality VTE Prophylaxis VTE prophylaxis: mechanical ordered (SCDs)
[2024-11-15] MEDS: carvediloL 3.125 MG TABLET PO (21:57)
[2024-11-15] MEDS: ACETAMINOPHEN 325 MG TABLET 650 MG PO (21:57)
[2024-11-15] MEDS: BENZOCAINE/MENTHOL (*BKC) 18 EA LOZENGE 1 LOZENGE PO (21:58)
[2024-11-16] VITALS (15 sets, daily range): BP systolic 88–137; BP diastolic 45–63; PULSE 62–85; RESP 16–18; TEMP 36.5–36.6; O2SAT 97–100; BMI 26.9
[2024-11-16 01:20] LABS: Strep Group A RT-PCR NOT DETECTED (Negative)
[2024-11-16 01:31] LABS: Influenza A QL RT-PCR Negative (Negative); Influenza B QL RT-PCR Negative (Negative); RSV RNA, RT-PCR Negative (Negative); SARS-CoV-2 RNA PCR Negative (Negative)
[2024-11-16] MEDS: SODIUM CHLORIDE 0.9% IV 1,000 ML 100 ML IV CONT ×2 (03:40→15:30)
[2024-11-16] MEDS: LEVOTHYROXINE SODIUM 100 MCG TABLET PO (05:41)
[2024-11-16 06:14] LABS: Hematocrit 26.7 % (42.0-52.0); Hemoglobin 8.5 g/dL (14.0-18.0); Mean Corpuscular HGB Conc 31.8 g/dl (32-36); Mean Corpuscular Hemoglobin 27.9 pg (26-34); Mean Corpuscular Volume 87.5 fl (80-100); Platelet Count Result 167 k/mm3 (150-375); Red Blood Count 3.05 M/mm3 (4.6-6.20); Red Cell Distribution Width 18.8 % (11.5-14.5); White Blood Count 7.5 K/mm3 (4.5-10.0)
[2024-11-16 06:36] LABS: Anion Gap 7 mmol/L (4-12); Blood Urea Nitrogen 18 mg/dL (9-20); Calcium 8.8 mg/dL (8.4-10.2); Carbon Dioxide 28 mmol/L (22-30); Chloride 93 mmol/L (98-107); Estimated CRCL calculation 39 ml/min; Estimated Glomerular Filt Rate 52; Glucose 85 mg/dL (65-110); Potassium 3.7 mmol/L (3.4-5.0); Sodium 128 mmol/L (137-145)
[2024-11-16 07:04] LABS: Atypical Lymphocytes Present; Band Neutrophils Percent 2 % (0-6); Lymphocytes Absolute Manual 2.25 K/mm3 (1.1-4.5); Monocytes Absolute Manual 0.52 K/mm3 (0.1-0.90); Monocytes Percent Manual 7 % (3-9); Neutrophils Absolute Manual 4.72 K/mm3 (1.3-6.7); Neutrophils Percent Manual 61 % (46-73); Platelet Estimate Adequate (Adequate); Schistocytes None Seen; Total Cells Counted 100
[2024-11-16] MEDS: TAMSULOSIN HCL 0.4 MG CAPSULE 0.8 MG PO (08:21)
[2024-11-16] MEDS: allopurinoL 100 MG TABLET PO (08:22)
[2024-11-16] MEDS: LORATADINE 10 MG TABLET PO (08:22)
[2024-11-16] MEDS: SPIRONOLACTONE 25 MG TABLET PO (08:22)
[2024-11-16] MEDS: ASCORBIC ACID 500 MG TABLET PO ×2 (08:22→17:17)
[2024-11-16] MEDS: GABAPENTIN 300 MG CAPSULE PO ×2 (08:22→17:17)
[2024-11-16] MEDS: POTASSIUM CHLORIDE 10 MEQ ER TABLET PO (08:22)
[2024-11-16] MEDS: PANTOPRAZOLE 40 MG TABLET PO (08:22)
[2024-11-16] MEDS: FOLIC ACID 1 MG TABLET PO (08:22)
[2024-11-16] MEDS: SENNOSIDES 8.6 MG TABLET PO ×2 (08:22→17:17)
[2024-11-16] MEDS: DULoxetine HCL 60 MG CAPSULE.DR PO (08:22)
[2024-11-16] MEDS: FERROUS SULFATE 325 MG TABLET DR PO ×2 (08:23→17:17)
[2024-11-16] MEDS: CHOLECALCIFEROL 5,000 UNITS TABLET 5000 UNITS PO (08:23)
[2024-11-16] MEDS: carvediloL 3.125 MG TABLET PO ×2 (08:23→20:23)
[2024-11-16] MEDS: CALCIUM/VITAMIN D 500 MG/5 MCG (200 I.U.) TABLET PO ×2 (08:23→17:17)
[2024-11-16] MEDS: CARBIDOPA/LEVODOPA 25/100 MG TABLET 3 TABLET PO ×3 (08:23→17:17)
[2024-11-16] MEDS: oxyBUTYnin CHLORIDE XL 5 MG TAB.ER.24 10 MG PO (08:24)
--- NOTE | 2024-11-16 10:17 | P.PNIM_ITS ---
Progress Note: A&P Assessment and Plan (1) Syncope and collapse: Code(s): R55 - Syncope and collapse Status: Acute (2) Chronic indwelling Duron catheter: Code(s): Z97.8 - Presence of other specified devices Status: Acute (3) Cognitive impairment: Code(s): R41.89 - Other symptoms and signs involving cognitive functions and awareness Status: Acute (4) History of infection due to ESBL Escherichia coli: Code(s): Z86.19 - Personal history of other infectious and parasitic diseases Status: Acute (5) Sore throat: Code(s): J02.9 - Acute pharyngitis, unspecified Status: Acute (6) Lymphadenopathy of left cervical region: Code(s): R59.0 - Localized enlarged lymph nodes Status: Acute Plan Patient had syncopal event with noted junctional rhythm on EKG. No overt arrhythmia on telemetry. Will monitor on telemetry. Since the patient was on the commode he could have had some vagovagal syncope due to bowel movement. - orthostatic vital signs ordered Patient is a poor historian,, c/o generalized weakness but does not have any significant white or fever. UA is not normal but he has a chronic indwelling Duron catheter. at this point we less suspicious for acute UTI. However urine cultures have been obtained and are pending. Unfortunately the patient does have a baseline known history of ESBL E coli last treated in January of 2024. He was started on meropenem in the ER for possible UTI however given his lack of fever or white count at this time the antibiotics were stopped If the patient develops worsening leukocytosis or fever then will reinitiate antibiotic therapy. The patient does have left posterior oral pharyngeal erythema with associated left anterior cervical lymphadenopathy that is tender to palpation. Will check COVID flu RSV and strep PCR to further evaluate. The patient has Chloraseptic lozenges at bedside. 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 ...he had been feeling weak for about 1-3 weeks. He a stated that he usually feels weak when he has a UTI but he has not had any fevers, leukocytosis or hematuria that he usually has when he has a UTI. Nursing staff reported that the patient's chronic indwelling Duron catheter appeared dirty on arrival to the ER and his catheter was exchanged. He is currently has about a L of clear pale yellow urine in his catheter bag. He has remained afebrile since presentation. He reports generalized abdominal discomfort but reports his last bowel movement was a couple of days ago. It is unclear if he may have had a syncopal episode while having a bowel movement at the skilled nursing. On physical exam the patient was noted have some erythema to the posterior oropharynx most specifically to the left posterior oropharynx any did have some associated left anterior cervical lymphadenopathy it was tender to palpation. He reports that his throat feels raw and he has had some nasal congestion for the last week. The patient is chronically chilled and states that he is cold all the time. When I arrived at the patient's bedside he had multiple hospital willing gets in place and 2 of his own personal blankets covering the bed. Pt is seen and examined. He is confused and asking for my help to try to get his son out of the [facility]. Other than that, he is comfortable and voices no acute complains. Review of Systems Review of Systems: Twelve point review of systems was attempted but accuracy of review of systems is not the best given the patient's history of cognitive impairment and fact that he is only alert oriented to person and place at the time of my evaluation. Exam Const: Other: Elderly, debilitated, well-developed well-nourished, no acute distress, lying in bed with the head of bed at about 30? and covered by piles of blankets HENMT: Other: Mucous membranes are tacky, mild posterior or pharyngeal erythema most notably on the left, head is normocephalic atraumatic, dentures in upper and lower jaw Eyes: Other: Pupils are equal and reactive with evidence of bilateral lens replacements, positive conjunctival pallor Resp: Other: Clear to auscultation bilaterally, no increased work of breathing Cardio: Other: No murmurs, 2+ bilateral radial pulses 2+ right pedal pulse, 1+ left pedal pulse GI: Other: Soft, nondistended, normoactive bowel sounds, mild generalized tenderness to palpation : Other: Duron catheter in place with about a L of clear pale yellow urine in catheter bag, uncircumcised male Skin: Other: Generalized pallor, normal temperature to touch, non jaundice Neuro: Other: Alert oriented person and place, confused as to the month in year he thought the month was July or August and that the year was 2023, speech is clear but slow, he does developed hoarseness to his voice with speaking, he has cogwheel rigidity of bilateral upper extremities, sensation is intact, no facial asymmetry, pupils are equal and reactive, extraocular movements intact, no localizing neurologic deficits noted during the course of conversation, poor short-term memory Extrem: Other: No clubbing, no cyanosis, no edema, patient has stiffness and rigidity of extremities consistent with his history of Parkinson's, has some uneven skin tone to the top of the left foot but no obvious erythema or increased warmth Psych: Other: Anxious, pleasant and cooperative, difficult to assess judgment given patient's confusion Objective Data Vital Signs Vital Signs: Vital Signs - 24 hr 11/15/24 14:14 11/15/24 15:48 11/15/24 15:51 Temperature 98.6 F Pulse Rate 66 67 67 Respiratory Rate 19 16 Blood Pressure 120/69 108/59 L 108/57 L Pulse Oximetry 98 100 Oxygen Delivery Room Air 11/15/24 15:51 11/15/24 17:49 11/15/24 18:31 Temperature 97.5 F L Pulse Rate 67 70 66 Respiratory Rate 19 18 Blood Pressure 105/61 100/60 104/70 Pulse Oximetry 100 100 Oxygen Delivery 11/15/24 20:00 11/15/24 20:00 11/15/24 20:56 Temperature 97.9 F Pulse Rate 60 62 60 Respiratory Rate 18 18 Blood Pressure 111/60 Pulse Oximetry 100 100 Oxygen Delivery Room Air 11/16/24 00:00 11/16/24 04:00 11/16/24 04:28 Temperature 97.9 F Pulse Rate 62 63 63 Respiratory Rate 18 Blood Pressure 115/56 L Pulse Oximetry 98 Oxygen Delivery 11/16/24 08:00 11/16/24 08:23 11/16/24 08:41 Temperature Pulse Rate 70 85 Respiratory Rate 16 Blood Pressure 137/63 Pulse Oximetry 97 Oxygen Delivery Room Air 11/16/24 08:50 11/16/24 08:50 11/16/24 09:12 Temperature Pulse Rate 72 85 Respiratory Rate 16 16 Blood Pressure 110/53 L 89/46 L Pulse Oximetry 98 97 97 Oxygen Delivery Room Air Intake/Output Intake/Output: Intake & Output 11/13/24 11/14/24 11/15/24 11/16/24 23:59 23:59 23:59 23:59 Intake Total 100 910 Output Total 1300 Balance 100 -390 Meds/Results Medications: Active Medications Generic Name Dose Route Start Last Admin Trade Name Freq PRN Reason Stop Dose Admin Acetaminophen 650 mg 11/15/24 20:48 11/15/24 21:57 Acetaminophen 325 Mg Tablet PO 650 mg Q6H PRN Administration Mild Pain (1-3) or Fever Hydrocodone Bitart/Acetaminophen 1 tab 11/15/24 21:31 Hydrocodone/Acetaminophen (*Crx) 5-325 Mg Tablet PO Q8H PRN Pain 4-10 Allopurinol 100 mg 11/16/24 09:00 11/16/24 08:22 Allopurinol 100 Mg Tablet PO 100 mg DAILY TENISHA Administration Amlodipine Besylate 2.5 mg 11/16/24 09:00 11/16/24 08:39 Amlodipine Besylate 2.5 Mg Tablet PO Not Given QAM [facility] Artificial Tears 1 drop 11/15/24 21:31 Artificial Tears Ophth Soln 15 Ml Bottle EACH EYE Q12H PRN Dry Eyes Ascorbic Acid 500 mg 11/16/24 09:00 11/16/24 08:22 Ascorbic Acid 500 Mg Tablet PO 500 mg BID TENISHA Administration Atorvastatin Calcium 80 mg 11/16/24 21:00 Atorvastatin 40 Mg Tablet PO HS [facility] Benzocaine 1 lozenge 11/15/24 20:48 11/15/24 21:58 Benzocaine/Menthol (*Bkc) 18 Ea Lozenge PO 1 lozenge PRN PRN Administration Sore Throat Bisacodyl 10 mg 11/15/24 21:31 Bisacodyl 10 Mg Suppository RECTAL DAILY PRN Constipation Calcium Carbonate 500 mg 11/16/24 09:00 11/16/24 08:23 Calcium/Vitamin D 500 Mg/5 Mcg (200 I.U.) Tablet PO 500 mg BID TENISHA Administration Carbidopa/Levodopa 3 tablet 11/16/24 09:00 11/16/24 08:23 Carbidopa/Levodopa 25/100 Mg Tablet PO 3 tablet TID TENISHA Administration Carvedilol 3.125 mg 11/15/24 21:50 11/16/24 08:23 Carvedilol 3.125 Mg Tablet PO 3.125 mg Q12HR TENISHA Administration Duloxetine HCl 60 mg 11/16/24 09:00 11/16/24 08:22 Duloxetine Hcl 60 Mg Capsule.Dr PO 60 mg DAILY TENISHA Administration Ferrous Sulfate 325 mg 11/16/24 09:00 11/16/24 08:23 Ferrous Sulfate [address] PO 325 mg BID TENISHA Administration Finasteride 5 mg 11/16/24 21:00 Finasteride 5 Mg Tablet PO QHS TENISHA Folic Acid 1 mg 11/16/24 09:00 11/16/24 08:22 Folic Acid 1 Mg Tablet PO 1 mg DAILY TENISHA Administration Gabapentin 300 mg 11/16/24 09:00 11/16/24 08:22 Gabapentin 300 Mg Capsule PO 300 mg BID TENISHA Administration Sodium Chloride 1,000 mls @ 100 mls/hr 11/16/24 00:30 11/16/24 03:40 Normal Saline Iv IV CONT 11/16/24 20:29 100 mls/hr .Q10H TENISHA Administration Levothyroxine Sodium 100 mcg 11/16/24 06:30 11/16/24 05:41 Levothyroxine Sodium 100 Mcg Tablet PO 100 mcg DAILY@0630 TENISHA Administration Lidocaine 1 patch 11/16/24 08:40 Lidocaine 5% Patch TOPICAL DAILY PRN pain Loratadine 10 mg 11/16/24 09:00 11/16/24 08:22 Loratadine 10 Mg Tablet PO 10 mg DAILY TENISHA Administration Methotrexate 2.5 mg 11/18/24 09:00 Methotrexate 2.5 Mg Tab (*Chemo) PO Th@0900 TENISHA Oxybutynin Chloride 10 mg 11/16/24 09:00 11/16/24 08:24 Oxybutynin Chloride Xl 5 Mg Tab.Er.24 PO 10 mg DAILY TENISHA Administration Pantoprazole Sodium 40 mg 11/16/24 09:00 11/16/24 08:22 Pantoprazole 40 Mg Tablet PO 40 mg QAM TENISHA Administration Potassium Chloride 10 meq 11/16/24 09:00 11/16/24 08:22 Potassium Chloride 10 Meq Er Tablet PO 10 meq DAILY TENISHA Administration Senna 8.6 mg 11/16/24 09:00 11/16/24 08:22 Sennosides 8.6 Mg Tablet PO 8.6 mg BID TENISHA Administration Spironolactone 25 mg 11/16/24 09:00 11/16/24 08:22 Spironolactone 25 Mg Tablet PO 25 mg DAILY TENISHA Administration Tamsulosin HCl 0.8 mg 11/16/24 09:00 11/16/24 08:21 Tamsulosin Hcl 0.4 Mg Capsule PO 0.8 mg DAILY TENISHA Administration Vitamin D 5,000 units 11/16/24 09:00 11/16/24 08:23 Cholecalciferol 5,000 Units Tablet PO 5,000 units DAILY TENISHA Administration Radiology Results: ITS Impressions Chest X-Ray 11/15/24 14:47 IMPRESSION: 1. No acute cardiopulmonary disease. Head CT 11/15/24 15:25 IMPRESSION: 1. Old infarcts involving the cerebellum, left parietal lobe, and left frontal lobe. 2. Mild nonspecific cerebral white matter disease, which likely represents chronic small vessel ischemic disease. Pelvis CT 11/15/24 15:28 IMPRESSION: 1. Severe osteoarthritis of the hips. 2. Wall thickening of the sigmoid colon, consistent with colitis. Knee X-Ray 11/15/24 15:35 IMPRESSION: 1. 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 No acute fracture identified. Labs Labs: Laboratory Results - last 24 hr 11/15/24 11/15/24 11/16/24 14:23 16:28 00:50 WBC 10.3 H RBC 3.41 L Hgb 9.5 L Hct 30.1 L MCV 88.3 MCH 27.9 MCHC 31.6 L RDW 18.9 H Plt Count 192 MPV 10.8 H Immature Gran % (Auto) Not Reportable Neut % (Auto) Not Reportable Lymph % (Auto) Not Reportable [place] % (Auto) Not Reportable Eos % (Auto) Not Reportable Baso % (Auto) Not Reportable Lymph # (Auto) Not Reportable [place] # (Auto) Not Reportable Eos # (Auto) Not Reportable Baso # (Auto) Not Reportable Abs Immat Gran (auto) Not Reportable Absolute Neuts (auto) Not Reportable Absolute Nucleated RBC Not Reportable Total Counted 100 Neutrophils % (Manual) 51 Band Neutrophils % Lymphocytes % (Manual) 38.0 Monocytes % (Manual) 9 Eosinophils % (Manual) 2 Nucleated RBC % Not Reportable Abs Neuts (Manual) Abs Lymphs (Manual) 3.91 Abs Monocytes (Manual) 0.92 H Absolute Eos (Manual) 0.20 Atypical Lymphocytes Platelet Estimate Adequate Hypochromasia 1+ Anisocytosis 3+ Schistocytes None seen Sodium 130 L Potassium 3.9 Chloride 93 L Carbon Dioxide 21 L Anion Gap 16 H BUN 20 D Creatinine 1.44 H Estim Creat Clear Calc 35 Estimated GFR 47 L Glucose 129 H Calcium 9.3 Total Bilirubin 0.7 AST 17 ALT 7 Alkaline Phosphatase 71 Total Protein 7.0 Albumin 3.7 Urine Color Yellow Urine Appearance Turbid H Urine pH 5.5 Ur Specific [place] 1.006 Urine Protein Trace Urine Glucose (UA) Negative Urine Ketones Negative Ur Blood (Man) 2+ H Urine Nitrate Negative Urine Bilirubin Negative Urine Urobilinogen 0.2 Add Ur Microanalysis Reviewed Leukocyte Esterase Rfl 3+ H Urine RBC 6-10 H Urine WBC >100 H Ur Squamous Epith Cells None seen Urine Bacteria 1+ H Urine Casts 11-20 Influenza A (RT-PCR) Negative Influenza B (RT-PCR) Negative RSV (RT-PCR) Negative SARS-CoV-2 RNA (RT-PCR) Negative Group A Strep (PCR) 11/16/24 11/16/24 00:51 05:57 WBC 7.5 RBC 3.05 L Hgb 8.5 L Hct 26.7 L MCV 87.5 MCH 27.9 MCHC 31.8 L RDW 18.8 H Plt Count 167 MPV 10.0 Immature Gran % (Auto) Not Reportable Neut % (Auto) Not Reportable Lymph % (Auto) Not Reportable [place] % (Auto) Not Reportable Eos % (Auto) Not Reportable Baso % (Auto) Not Reportable Lymph # (Auto) Not Reportable [place] # (Auto) Not Reportable Eos # (Auto) Not Reportable Baso # (Auto) Not Reportable Abs Immat Gran (auto) Not Reportable Absolute Neuts (auto) Not Reportable Absolute Nucleated RBC Not Reportable Total Counted 100 Neutrophils % (Manual) 61 Band Neutrophils % 2 Lymphocytes % (Manual) 30.0 Monocytes % (Manual) 7 Eosinophils % (Manual) Nucleated RBC % Not Reportable Abs Neuts (Manual) 4.72 Abs Lymphs (Manual) 2.25 Abs Monocytes (Manual) 0.52 Absolute Eos (Manual) Atypical Lymphocytes Present Platelet Estimate Adequate Hypochromasia Anisocytosis Schistocytes None seen Sodium 128 L Potassium 3.7 Chloride 93 L Carbon Dioxide 28 Anion Gap 7 BUN 18 Creatinine 1.32 H Estim Creat Clear Calc 39 Estimated GFR 52 L Glucose 85 Calcium 8.8 Total Bilirubin AST ALT Alkaline Phosphatase Total Protein Albumin Urine Color Urine Appearance Urine pH Ur Specific [place] Urine Protein Urine Glucose (UA) Urine Ketones Ur Blood (Man) Urine Nitrate Urine Bilirubin Urine Urobilinogen Add Ur Microanalysis Leukocyte Esterase Rfl Urine RBC Urine WBC Ur Squamous Epith Cells Urine Bacteria Urine Casts Influenza A (RT-PCR) Influenza B (RT-PCR) RSV (RT-PCR) SARS-CoV-2 RNA (RT-PCR) Group A Strep (PCR) Not detected Quality VTE Prophylaxis VTE prophylaxis: mechanical ordered (SCDs)
[2024-11-16] MEDS: BISACODYL 10 MG SUPPOSITORY RECTAL (15:33)
[2024-11-16] MEDS: HYDROcodone/acetaminophen (*CRX) 5-325 MG TABLET 1 TAB PO (20:23)
[2024-11-16] MEDS: ATORVASTATIN 40 MG TABLET 80 MG PO (20:23)
[2024-11-16] MEDS: FINASTERIDE 5 MG TABLET PO (20:24)
[2024-11-17] VITALS (13 sets, daily range): BP systolic 106–124; BP diastolic 53–68; PULSE 57–67; RESP 16–20; TEMP 36.4–36.6; O2SAT 97–98
[2024-11-17] MEDS: HYDROcodone/acetaminophen (*CRX) 5-325 MG TABLET 1 TAB PO ×2 (03:08→21:19)
[2024-11-17] MEDS: LIDOCAINE 5% PATCH 1 PATCH TOPICAL (03:49)
[2024-11-17] MEDS: LEVOTHYROXINE SODIUM 100 MCG TABLET PO (06:10)
[2024-11-17] MEDS: oxyBUTYnin CHLORIDE XL 5 MG TAB.ER.24 10 MG PO (08:59)
[2024-11-17] MEDS: allopurinoL 100 MG TABLET PO (08:59)
[2024-11-17] MEDS: SENNOSIDES 8.6 MG TABLET PO ×2 (08:59→17:46)
[2024-11-17] MEDS: CALCIUM/VITAMIN D 500 MG/5 MCG (200 I.U.) TABLET PO ×2 (08:59→17:46)
[2024-11-17] MEDS: POTASSIUM CHLORIDE 10 MEQ ER TABLET PO (08:59)
[2024-11-17] MEDS: DULoxetine HCL 60 MG CAPSULE.DR PO (09:00)
[2024-11-17] MEDS: CARBIDOPA/LEVODOPA 25/100 MG TABLET 3 TABLET PO ×3 (09:00→17:46)
[2024-11-17] MEDS: TAMSULOSIN HCL 0.4 MG CAPSULE 0.8 MG PO (09:00)
[2024-11-17] MEDS: ASCORBIC ACID 500 MG TABLET PO ×2 (09:00→17:46)
[2024-11-17] MEDS: CHOLECALCIFEROL 5,000 UNITS TABLET 5000 UNITS PO (09:01)
[2024-11-17] MEDS: carvediloL 3.125 MG TABLET PO ×2 (09:01→21:14)
[2024-11-17] MEDS: LORATADINE 10 MG TABLET PO (09:01)
[2024-11-17] MEDS: amLODIPine BESYLATE 2.5 MG TABLET PO (09:01)
[2024-11-17] MEDS: FOLIC ACID 1 MG TABLET PO (09:01)
[2024-11-17] MEDS: FERROUS SULFATE 325 MG TABLET DR PO ×2 (09:01→17:47)
[2024-11-17] MEDS: PANTOPRAZOLE 40 MG TABLET PO (09:01)
[2024-11-17] MEDS: GABAPENTIN 300 MG CAPSULE PO ×2 (09:02→17:46)
[2024-11-17] MEDS: SPIRONOLACTONE 25 MG TABLET PO (09:02)
[2024-11-17] MEDS: ACETAMINOPHEN 325 MG TABLET 650 MG PO (09:05)
--- NOTE | 2024-11-17 11:11 | PM.DS ---
DS: Admitting Diagnosis Discharge Date 11/17/2024 Admitting Diagnosis Acute Syncope and Collapse. DS: Discharge Diagnosis Discharge Diagnosis (1) Syncope and collapse: Code(s): R55 - Syncope and collapse Status: Acute Assessment and Plan: Acute (2) Chronic indwelling Duron catheter: Code(s): Z97.8 - Presence of other specified devices Status: Acute Assessment and Plan: Chronic. (3) Cognitive impairment: Code(s): R41.89 - Other symptoms and signs involving cognitive functions and awareness Status: Acute Assessment and Plan: Chronic. 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 (5) Sore throat: Code(s): J02.9 - Acute pharyngitis, unspecified Status: Acute Assessment and Plan: Acute. (6) Lymphadenopathy of left cervical region: Code(s): R59.0 - Localized enlarged lymph nodes Status: Acute Assessment and Plan: Acute. (7) Abdominal pain: Code(s): R10.9 - Unspecified abdominal pain Status: Acute Assessment and Plan: Acute. Plan Discharge to SNF. DS: Summary Hospital Course Reason for hospitalization: Syncope and Collapse. Hospital Course: Patient had a syncopal event at the SNF that he resides. On admission, pt was noted with junctional rhythm and RBBB on EKG. No overt arrhythmia noted on telemetry monitoring. Patient had a negative CT head for acute. CT pelvis was negative for acute, CXR negative for infiltrates, with nidhi. X-Ray knees also being negative for acute. Patient had slight leukocytosis 10.3 that was suspected to be likely reactive to the syncope episode as it resolved day after admission, with no fevers or signs of infection noted inpatient. Patient was on the commode and he could have had some vagovagal syncope episode during to bowel movement. His UA was suspicious for a possible UTI and pt was given a dose of Meroponem initially on admission, this was discontinued with negative urine culture. Patient had negative orthostatic vitals as well as a negative acute respiratory virus panel, including Flu, Covid and RSV. Patient had some pharyngitis suspected to be possibly URI, and this was treated with lidocaine. Patient was reporting abdominal discomfort mainly to his LLQ. Initial KUB done showed distended sigmoid colon, which may be adynamic ileus or less likely distal obstruction. Pt was placed NPO and GI consulted. Pt had DWIGHT done with no impaction noted. He was started back on clear liquid diet that was advanced to his previous regular diet the patient tolerated fairly okay. His stated complaint of left lower quadrant abdominal discomfort and repeat KUB showed nonobstructive bowel gas pattern. Patient has been having poor p.o. intake since admission, and was not observed to be constipated. Patient was started on a bowel regimen that included an enemas, laxatives and stool softness, but still with no results, patient as noted has been having very poor p.o. intake since admission. CT abdominal pelvis was done prior to his discharge, and it showed moderate colonic diverticulosis with a sigmoid predominance. There is no adjacent inflammatory change to suggest diverticulitis. No bowel obstruction. With patient tolerating meals well with no distressful GI symptoms, he was cleared for discharge by general surgery. Patient admitted that he did not like the [facility] facility that he resides I do not want to return. Patient was advised to relay his concerns with the facility's showcase maker and social welfare administrator for assistance we did no acute distress was noted or reported prior to discharge and patient was medically stable for discharge back to his [facility] facility. Status at Discharge Functional status at discharge: wheelchair bound Overall status at discharge: patient is progressing back to baseline Time Spent with Patient Time attestation: Total time spent providing and/or coordinating discharge services: Time spent: Greater than 30 minutes Exam Narrative: HEENT: Atraumatic, PERRL, EOMI, moist mucosa. NECK: Supple. LUNGS: Clear bilaterally. HEART: RRR, no murmurs. Abdomen: Soft, LLQ mild tenderness on palpation when patient aware, but appears ok when pt distracted. Non-distended, +ve BS X4 Quadrants. Extremities: Acyanotic, No edema. Skin: Warm and dry, no lesions noted. Neuro: Fairly oriented but with episodes of confused, no focal neuro deficits noted. Psych: Calm and co-operative. Discharge Plan Discharge Attending physician on discharge: Porfirio Cortez Consulting providers: Mark Dumont Discharging Clinician: Cordell Olivera Anticipated Discharge Date/Time: 11/20/24 14:46 Patient Disposition: [facility] Nursing Home/As[facility] Living Activity: as tolerated Diet: heart healthy Patient Instructions: Antibiotic Form Patient Language: Kinyarwanda Stand Alone Forms: General Discharge Information Follow-up/Referrals: Raoul Forbes MD [Primary Care Provider] - 1 Week Discharge Medications: New polyethylene glycol 3350 [Miralax] 17 gram Powder In Packet 17 g PO QAM Qty: 10 0RF Continued alendronate 70 mg tablet 70 mg PO WEEKLY Rx Instructions: every friday bisacodyl [Dulcolax (bisacodyl)] 10 mg suppository 10 mg RECTAL DAILY PRN (Reason: Constipation) ondansetron 8 mg tablet,disintegrating 8 mg PO Q8H carbidopa-levodopa [Sinemet] 25-100 mg tablet 3 tablet PO TID Qty: 240 6RF Rx Instructions: May increase to 3 tablets 4 times a day as necessary atorvastatin 80 mg tablet 80 mg PO HS sennosides [Senokot] 8.6 mg tablet 8.6 mg PO BID Rx Instructions: May hold for for loose stool lidocaine [Lidoderm] 5 % adhesive patch,medicated 1 patch topical DAILY Qty: 15 0RF Rx Instructions: leave on most painful area for up to 12 hrs carvedilol 3.125 mg Tablet 3.125 mg PO BID Rx Instructions: must administer with a meal/food Artificial Tears([id number]) 0.1-0.3 % Drops 1 drp EACH EYE Q12H PRN (Reason: Dry Eyes) oxybutynin chloride 10 mg Tablet Extended Release 24hr 10 mg PO DAILY magnesium hydroxide [Milk of Magnesia] 400 mg/5 mL Suspension 30 ml PO HS PRN (Reason: Constipation) Rx Instructions: if no BM in three days gabapentin 300 mg Capsule 300 mg PO BID omeprazole 20 mg Capsule,Delayed Release(Dr/Ec) 20 mg PO DAILY furosemide 20 mg Tablet 40 mg PO DAILY hydrocodone-acetaminophen 5-325 mg tablet 1 tablet PO Q8H PRN (Reason: Pain (Scale Score 4-6)) allopurinol 100 mg tablet 100 mg PO DAILY methotrexate sodium 2.5 mg tablet 2.5 mg PO WEEKLY Rx Instructions: potassium chloride 10 mEq tablet extended release 10 meq PO DAILY spironolactone 25 mg tablet 25 mg PO DAILY amlodipine 5 mg tablet 2.5 mg PO QAM ferrous sulfate 325 mg (65 mg iron) Tablet,Delayed Release (Dr/Ec) 325 mg PO BID calcium carbonate-vitamin D3 [Calcium 600 + D(3)] 600 mg-10 mcg (400 unit) tablet 1 tablet PO BID folic acid 1 mg tablet 1 mg PO DAILY cholecalciferol (vitamin D3) [Vitamin D3] 125 mcg (5,000 unit) tablet 5,000 unit PO DAILY ascorbic acid (vitamin C) 500 mg capsule 500 mg PO BID loratadine [Allergy Relief (loratadine)] 10 mg tablet 10 mg PO DAILY levothyroxine 100 mcg tablet 100 mcg PO DAILY Qty: 90 1RF tamsulosin 0.4 mg capsule 0.8 mg PO DAILY Qty: 180 1RF finasteride 5 mg tablet 5 mg PO QHS Qty: 90 1RF duloxetine 60 mg capsule,delayed release(DR/EC) 60 mg PO DAILY Qty: 30 1RF albuterol sulfate 90 mcg/actuation HFA aerosol inhaler 1 puff INHALATION Q4H PRN (Reason: shortness of breath or wheezing) Qty: 8.5 1RF Date of admission: 11/16/24 10:06 Primary Care Provider: Raoul Forbes Admitting Provider: Ambreen Hwang Attending physician on admission: Ambreen Hwang Condition: Stable Quality If No VTE Prophylaxis Answer both mechanical and pharmacologic: Reason no mechanical VTE proph: low risk/not indicated Reason no pharmacologic proph: low risk/not indicated Hospitalist MIPS Heart Failure (Exclusion) Patient has history of Heart Transplant or Left Ventricular Assistive Device?: No IF YES, STOP HERE Heart Failure (Qualifier) Patient has current or prior documentation of LVEF less than or equal to 40%, or mod/servere depressed LVSF?: No IF NO, STOP HERE
[2024-11-17 12:24] LABS: Hemoglobin 8.7 g/dL (14.0-18.0); Mean Corpuscular HGB Conc 31.1 g/dl (32-36); Mean Corpuscular Hemoglobin 28.3 pg (26-34); Mean Corpuscular Volume 91.2 fl (80-100); Mean Platelet Volume 9.5 fl (7.4-10.4); Platelet Count Result 160 k/mm3 (150-375); Red Blood Count 3.07 M/mm3 (4.6-6.20); Red Cell Distribution Width 19.4 % (11.5-14.5); White Blood Count 6.3 K/mm3 (4.5-10.0)
[2024-11-17 12:43] LABS: Anion Gap 8 mmol/L (4-12); Blood Urea Nitrogen 12 mg/dL (9-20); Calcium 8.3 mg/dL (8.4-10.2); Carbon Dioxide 26 mmol/L (22-30); Chloride 97 mmol/L (98-107); Estimated CRCL calculation 55 ml/min; Estimated Glomerular Filt Rate > 60; Glucose 116 mg/dL (65-110); Potassium 3.8 mmol/L (3.4-5.0); Sodium 131 mmol/L (137-145)
[2024-11-17 13:10] LABS: Basophils Absolute Manual 0.06 K/mm3 (0.0-0.1); Basophils Percent Manual 1 % (0-1); Eosinophils Absolute Manual 0.25 K/mm3 (0.02-0.50); Eosinophils Percent Manual 4 % (0-4); Lymphocytes Absolute Manual 2.77 K/mm3 (1.1-4.5); Monocytes Absolute Manual 0.37 K/mm3 (0.1-0.90); Monocytes Percent Manual 6 % (3-9); Total Cells Counted 100
[2024-11-17 13:11] LABS: Neutrophils Percent Manual 45 % (46-73)
[2024-11-17 13:12] LABS: Platelet Estimate Adequate (Adequate)
[2024-11-17 13:13] LABS: Anisocytosis 2+; Microcytosis 1+ (NORMAL); Schistocytes None Seen
[2024-11-17 13:14] LABS: Ovalocytes 1+
[2024-11-17 13:16] LABS: Atypical Lymphocytes Present
[2024-11-17 13:22] LABS: Smudge Cells FEW
--- NOTE | 2024-11-17 15:39 | P.PNIM_ITS ---
Progress Note: A&P Assessment and Plan (1) Adynamic ileus: Code(s): K56.0 - Paralytic ileus Status: Acute Assessment and Plan: - KUB 11/17/24: . Distended sigmoid colon, which may be adynamic ileus or less likely distal obstruction. - Patient reporting LLQ abdominal discomfort and inability to pass BM though feeling the urge he needs to go. - Placed on clears. - General surgery consulted. - Consider stool softeners and laxatives. (2) Syncope and collapse: Code(s): R55 - Syncope and collapse Status: Acute Assessment and Plan: - Unknown cause. - CT head negative for acute. - EKG: Junctional Rhythm, RBBB. - No significant arrhythmias on telemetry. - CXR negative for acute. - CT hip negative. - Art. Knees X-Ray negative. - Monitor for now. (3) Chronic indwelling Strauss catheter: Code(s): Z97.8 - Presence of other specified devices Status: Acute Assessment and Plan: Chronic. - Changed on admission. - Strauss with clear, yellow urine. - Maintain strauss and monitor for now. (4) Cognitive impairment: Code(s): R41.89 - Other symptoms and signs involving cognitive functions and awareness Status: Acute Assessment and Plan: Chronic. - Possibly an element of dementia. - CT head negative for acute. - Safety monitoring and assist with care. 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 - Urine culture negative. - No treatment required currently. (6) Sore throat: Code(s): J02.9 - Acute pharyngitis, unspecified Status: Acute Assessment and Plan: Acute. - Possibly URI. - Improving with Benzocain/Menthol lozenges. (7) Lymphadenopathy of left cervical region: Code(s): R59.0 - Localized enlarged lymph nodes Status: Acute Assessment and Plan: Acute. - Possibly related to URI. - Symptoms improving. - Continue supportive care. Plan General surgeon consulted with possible new sigmoid ileus. Further mgt pending surgery recommendations. Time Spent With Patient Time with patient: 25 - 35 minutes Subjective Date/time seen: 11/17/24 15:39 Patient reports doing well with diet but he has pain to the left-side of his abdomen. States he's been trying to have a BM but nothing is coming out. Interval history: Patient calm on bedrest and looks to be in no acute distress. Review of Systems Review of Systems: Twelve point review of systems was attempted but accuracy of review of systems is not the best given the patient's history of cognitive impairment and fact that he is only alert oriented to person and place at the time of my evaluation. All systems reviewed & are unremarkable except as noted in HPI and below Exam Narrative: General: Fair appearing, gen muscle weakness. HEENT: Atraumatic, PERRL, EOMI, moist mucosa. NECK: Supple. Lungs: Clear bilaterally. Heart: RRR, no murmurs. Abdomen: Tenderness LLQ. Neuro: Fairly oriented but with some forgetfulness, no focal neuro deficits noted. Psych: Calm and co-operative. Objective Data Vital Signs Vital Signs: Vital Signs - 24 hr 11/16/24 16:00 11/16/24 20:00 11/16/24 20:00 Temperature 97.7 F Pulse Rate 64 65 63 Respiratory Rate 18 Blood Pressure 107/54 L Pulse Oximetry 99 Oxygen Delivery 11/16/24 20:23 11/16/24 20:28 11/16/24 20:40 Temperature 97.7 F 97.7 F Pulse Rate 74 65 66 Respiratory Rate 18 18 Blood Pressure 107/54 L 88/48 L Pulse Oximetry 99 100 Oxygen Delivery 11/16/24 20:41 11/17/24 00:00 11/17/24 04:00 Temperature 97.7 F Pulse Rate 65 61 66 Respiratory Rate 18 Blood Pressure 107/54 L Pulse Oximetry 99 Oxygen Delivery 11/17/24 05:47 11/17/24 08:00 11/17/24 09:00 Temperature 97.5 F L Pulse Rate 67 60 Respiratory Rate 20 Blood Pressure 106/68 Pulse Oximetry 97 Oxygen Delivery Room Air 11/17/24 09:01 11/17/24 09:05 11/17/24 12:00 Temperature Pulse Rate 59 L 65 Respiratory Rate Blood Pressure 124/58 L Pulse Oximetry Oxygen Delivery Intake/Output Intake/Output: Intake & Output 11/14/24 11/15/24 11/16/24 11/17/24 23:59 23:59 23:59 23:59 Intake Total 100 2350 2010 Output Total 2150 1300 Balance 100 200 710 Meds/Results Medications: Active Medications Generic Name Dose Route Start Last Admin Trade Name Freq PRN Reason Stop Dose Admin Acetaminophen 650 mg 11/15/24 20:48 11/17/24 09:05 Acetaminophen 325 Mg Tablet PO 650 mg Q6H PRN Administration Mild Pain (1-3) or Fever Hydrocodone Bitart/Acetaminophen 1 tab 11/15/24 21:31 11/17/24 03:08 Hydrocodone/Acetaminophen (*Crx) 5-325 Mg Tablet PO 1 tab Q8H PRN Administration Pain 4-10 Allopurinol 100 mg 11/16/24 09:00 11/17/24 08:59 Allopurinol 100 Mg Tablet PO 100 mg DAILY TENISHA Administration Amlodipine Besylate 2.5 mg 11/16/24 09:00 11/17/24 09:01 Amlodipine Besylate 2.5 Mg Tablet PO 2.5 mg QAM TENISHA Administration Artificial Tears 1 drop 11/15/24 21:31 Artificial Tears Ophth Soln 15 Ml Bottle EACH EYE Q12H PRN Dry Eyes Ascorbic Acid 500 mg 11/16/24 09:00 11/17/24 09:00 Ascorbic Acid 500 Mg Tablet PO 500 mg BID TENISHA Administration Atorvastatin Calcium 80 mg 11/16/24 21:00 11/16/24 20:23 Atorvastatin 40 Mg Tablet PO 80 mg HS TENISHA Administration Benzocaine 1 lozenge 11/15/24 20:48 11/15/24 21:58 Benzocaine/Menthol (*Bkc) 18 Ea Lozenge PO 1 lozenge PRN PRN Administration Sore Throat Bisacodyl 10 mg 11/15/24 21:31 11/16/24 15:33 Bisacodyl 10 Mg Suppository RECTAL 10 mg DAILY PRN Administration Constipation Calcium Carbonate 500 mg 11/16/24 09:00 11/17/24 08:59 Calcium/Vitamin D 500 Mg/5 Mcg (200 I.U.) Tablet PO 500 mg BID TENISHA Administration Carbidopa/Levodopa 3 tablet 11/16/24 09:00 11/17/24 13:21 Carbidopa/Levodopa 25/100 Mg Tablet PO 3 tablet TID TENISHA Administration Carvedilol 3.125 mg 11/15/24 21:50 11/17/24 09:01 Carvedilol 3.125 Mg Tablet PO 3.125 mg Q12HR TENISHA Administration Duloxetine HCl 60 mg 11/16/24 09:00 11/17/24 09:00 Duloxetine Hcl 60 Mg Capsule.Dr PO 60 mg DAILY TENISHA Administration Ferrous Sulfate 325 mg 11/16/24 09:00 11/17/24 09:01 Ferrous Sulfate [address] PO 325 mg BID TENISHA Administration Finasteride 5 mg 11/16/24 21:00 11/16/24 20:24 Finasteride 5 Mg Tablet PO 5 mg QHS TENISHA Administration Folic Acid 1 mg 11/16/24 09:00 11/17/24 09:01 Folic Acid 1 Mg Tablet PO 1 mg DAILY TENISHA Administration Gabapentin 300 mg 11/16/24 09:00 11/17/24 09:02 Gabapentin 300 Mg Capsule PO 300 mg BID TENISHA Administration Levothyroxine Sodium 100 mcg 11/16/24 06:30 11/17/24 06:10 Levothyroxine Sodium 100 Mcg Tablet PO 100 mcg DAILY@0630 TENISHA Administration Lidocaine 1 patch 11/16/24 08:40 11/17/24 03:49 Lidocaine 5% Patch TOPICAL 1 patch DAILY PRN Administration pain Loratadine 10 mg 11/16/24 09:00 11/17/24 09:01 Loratadine 10 Mg Tablet PO 10 mg DAILY TENISHA Administration Methotrexate 2.5 mg 11/18/24 09:00 Methotrexate 2.5 Mg Tab (*Chemo) PO Th@0900 [facility] Oxybutynin Chloride 10 mg 11/16/24 09:00 11/17/24 08:59 Oxybutynin Chloride Xl 5 Mg Tab.Er.24 PO 10 mg DAILY TENISHA Administration Pantoprazole Sodium 40 mg 11/16/24 09:00 11/17/24 09:01 Pantoprazole 40 Mg Tablet PO 40 mg QAM TENISHA Administration Potassium Chloride 10 meq 11/16/24 09:00 11/17/24 08:59 Potassium Chloride 10 Meq Er Tablet PO 10 meq DAILY TENISHA Administration Senna 8.6 mg 11/16/24 09:00 11/17/24 08:59 Sennosides 8.6 Mg Tablet PO 8.6 mg BID TENISHA Administration Spironolactone 25 mg 11/16/24 09:00 11/17/24 09:02 Spironolactone 25 Mg Tablet PO 25 mg DAILY TENISHA Administration Tamsulosin HCl 0.8 mg 11/16/24 09:00 11/17/24 09:00 Tamsulosin Hcl 0.4 Mg Capsule PO 0.8 mg DAILY TENISHA Administration Vitamin D 5,000 units 11/16/24 09:00 11/17/24 09:01 Cholecalciferol 5,000 Units Tablet PO 5,000 units DAILY TENISHA Administration Radiology Results: ITS Impressions Chest X-Ray 11/15/24 14:47 IMPRESSION: 1. No acute cardiopulmonary disease. Head CT 11/15/24 15:25 IMPRESSION: 1. Old infarcts involving the cerebellum, left parietal lobe, and left frontal lobe. 2. Mild nonspecific cerebral white matter disease, which likely represents chronic small vessel ischemic disease. Pelvis CT 11/15/24 15:28 IMPRESSION: 1. Severe osteoarthritis of the hips. 2. Wall thickening of the sigmoid colon, consistent with colitis. Knee X-Ray 11/15/24 15:35 IMPRESSION: 1. 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 No acute fracture identified. Abdomen X-Ray 11/17/24 14:49 IMPRESSION: 1. Distended sigmoid colon, which may be adynamic ileus or less likely distal obstruction. Labs Labs: Laboratory Results - last 24 hr 11/17/24 12:19 WBC 6.3 RBC 3.07 L Hgb 8.7 L Hct 28.0 L MCV 91.2 MCH 28.3 MCHC 31.1 L RDW 19.4 H Plt Count 160 MPV 9.5 Immature Gran % (Auto) Not Reportable Neut % (Auto) Not Reportable Lymph % (Auto) Not Reportable [place] % (Auto) Not Reportable Eos % (Auto) Not Reportable Baso % (Auto) Not Reportable Lymph # (Auto) Not Reportable [place] # (Auto) Not Reportable Eos # (Auto) Not Reportable Baso # (Auto) Not Reportable Abs Immat Gran (auto) Not Reportable Absolute Neuts (auto) Not Reportable Absolute Nucleated RBC Not Reportable Total Counted 100 Neutrophils % (Manual) 45 L Lymphocytes % (Manual) 44.0 Monocytes % (Manual) 6 Eosinophils % (Manual) 4 Basophils % (Manual) 1 Nucleated RBC % Not Reportable Abs Lymphs (Manual) 2.77 Abs Monocytes (Manual) 0.37 Absolute Eos (Manual) 0.25 Abs Basophils (Manual) 0.06 Atypical Lymphocytes Present Smudge Cells Few Other Cell Type Not Reportable Platelet Estimate Adequate Anisocytosis 2+ Microcytosis 1+ Ovalocytes 1+ Schistocytes None seen Sodium 131 L Potassium 3.8 Chloride 97 L Carbon Dioxide 26 Anion Gap 8 BUN 12 D Creatinine 0.91 Estim Creat Clear Calc 55 Estimated GFR > 60 Glucose 116 H Calcium 8.3 L Quality VTE Prophylaxis VTE prophylaxis: mechanical ordered (SCDs) Hospitalist MIPS Advance Care Plan I have confirmed that the patient's Advanced Care Plan is present, code status is documented, or surrogate decision maker is listed in patient medical record.: Yes Medication Reconciliation I have utilized all available resources to obtain, update and review the patients current medications (includes all prescriptions, OTC, herbals, cannabis, and nutritional supplements).: Yes
[2024-11-17] MEDS: BISACODYL 5 MG TABLET EC PO (17:47)
[2024-11-17] MEDS: polyethylene glycoL 3350 17 GM POWD.PACK PO (17:47)
[2024-11-17] MEDS: FINASTERIDE 5 MG TABLET PO (21:14)
[2024-11-17] MEDS: ATORVASTATIN 40 MG TABLET 80 MG PO (21:14)
[2024-11-18] VITALS (13 sets, daily range): BP systolic 94–119; BP diastolic 48–59; PULSE 55–78; RESP 16; TEMP 36.1–36.7; O2SAT 95–99
[2024-11-18] MEDS: HYDROcodone/acetaminophen (*CRX) 5-325 MG TABLET 1 TAB PO ×2 (05:25→19:56)
[2024-11-18] MEDS: LEVOTHYROXINE SODIUM 100 MCG TABLET PO (05:25)
[2024-11-18 06:21] LABS: Hematocrit 25.9 % (42.0-52.0); Hemoglobin 8.1 g/dL (14.0-18.0); Mean Corpuscular HGB Conc 31.3 g/dl (32-36); Mean Corpuscular Hemoglobin 27.9 pg (26-34); Mean Corpuscular Volume 89.3 fl (80-100); Mean Platelet Volume 9.9 fl (7.4-10.4); Platelet Count Result 162 k/mm3 (150-375); Red Cell Distribution Width 19.3 % (11.5-14.5)
[2024-11-18 06:36] LABS: Potassium 4.3 mmol/L (3.4-5.0)
[2024-11-18 06:41] LABS: Anion Gap 7 mmol/L (4-12); Blood Urea Nitrogen 11 mg/dL (9-20); Calcium 8.8 mg/dL (8.4-10.2); Carbon Dioxide 26 mmol/L (22-30); Chloride 98 mmol/L (98-107); Estimated CRCL calculation 54 ml/min; Estimated Glomerular Filt Rate > 60; Glucose 90 mg/dL (65-110); Potassium 4.2 mmol/L (3.4-5.0); Sodium 131 mmol/L (137-145)
[2024-11-18 07:10] LABS: Lymphocytes Absolute Manual 2.58 K/mm3 (1.1-4.5); Lymphocytes Percent Manual 43 % (18-44); Monocytes Absolute Manual 0.48 K/mm3 (0.1-0.90); Monocytes Percent Manual 8 % (3-9); Neutrophils Percent Manual 47 % (46-73); Platelet Estimate Adequate (Adequate); Smudge Cells PRESENT; Total Cells Counted 100
[2024-11-18 07:11] LABS: Anisocytosis 2+; Microcytosis 1+ (NORMAL); Schistocytes None Seen
[2024-11-18] MEDS: polyethylene glycoL 3350 17 GM POWD.PACK PO (08:19)
[2024-11-18] MEDS: FOLIC ACID 1 MG TABLET PO (08:19)
[2024-11-18] MEDS: carvediloL 3.125 MG TABLET PO ×2 (08:19→19:56)
[2024-11-18] MEDS: CHOLECALCIFEROL 5,000 UNITS TABLET 5000 UNITS PO (08:19)
[2024-11-18] MEDS: SENNOSIDES 8.6 MG TABLET PO ×2 (08:19→17:15)
[2024-11-18] MEDS: CALCIUM/VITAMIN D 500 MG/5 MCG (200 I.U.) TABLET PO ×2 (08:19→17:15)
[2024-11-18] MEDS: BISACODYL 5 MG TABLET EC PO (08:19)
[2024-11-18] MEDS: SPIRONOLACTONE 25 MG TABLET PO (08:19)
[2024-11-18] MEDS: FERROUS SULFATE 325 MG TABLET DR PO ×2 (08:19→17:15)
[2024-11-18] MEDS: METHOTREXATE 2.5 MG TAB (*CHEMO) PO (08:19)
[2024-11-18] MEDS: POTASSIUM CHLORIDE 10 MEQ ER TABLET PO (08:19)
[2024-11-18] MEDS: DULoxetine HCL 60 MG CAPSULE.DR PO (08:20)
[2024-11-18] MEDS: allopurinoL 100 MG TABLET PO (08:20)
[2024-11-18] MEDS: LORATADINE 10 MG TABLET PO (08:20)
[2024-11-18] MEDS: amLODIPine BESYLATE 2.5 MG TABLET PO (08:20)
[2024-11-18] MEDS: GABAPENTIN 300 MG CAPSULE PO ×2 (08:20→17:14)
[2024-11-18] MEDS: PANTOPRAZOLE 40 MG TABLET PO (08:20)
[2024-11-18] MEDS: ASCORBIC ACID 500 MG TABLET PO ×2 (08:20→17:14)
[2024-11-18] MEDS: oxyBUTYnin CHLORIDE XL 5 MG TAB.ER.24 10 MG PO (08:20)
[2024-11-18] MEDS: TAMSULOSIN HCL 0.4 MG CAPSULE 0.8 MG PO (08:20)
[2024-11-18] MEDS: CARBIDOPA/LEVODOPA 25/100 MG TABLET 3 TABLET PO ×3 (08:20→17:14)
--- NOTE | 2024-11-18 12:02 | PM.IMPN ---
Progress Note: A&P Assessment and Plan (1) Adynamic ileus: Code(s): K56.0 - Paralytic ileus Status: Acute Assessment and Plan: - KUB 11/17/24: . Distended sigmoid colon, which may be adynamic ileus or less likely distal obstruction. - Patient reporting LLQ abdominal discomfort and inability to pass BM though feeling the urge he needs to go. - Pt reports still no BM and still having LLQ discomfort. - Pt can't recall last BM but documented on chart 2 days ago. - Maintain clears for now. - Stool softeners and laxatives offered. - General surgery consulted. - Supportive care as we monitor for results. (2) Syncope and collapse: Code(s): R55 - Syncope and collapse Status: Acute Assessment and Plan: - Unknown cause. - CT head negative for acute. - EKG: Junctional Rhythm, RBBB. - No significant arrhythmias on telemetry. - CXR negative for acute. - CT hip negative. - Art. Knees X-Ray negative. - No repeat episodes inpatient. - Monitor for now. (3) Chronic indwelling Strauss catheter: Code(s): Z97.8 - Presence of other specified devices Status: Acute Assessment and Plan: Chronic. - Changed on admission. - Strauss with clear, yellow urine. - Maintain strauss and monitor for now. (4) Cognitive impairment: Code(s): R41.89 - Other symptoms and signs involving cognitive functions and awareness Status: Acute Assessment and Plan: Chronic. - Possibly an element of dementia with advancing age in setting of Parkinson's disease. - CT head negative for acute. - Continue safety monitoring and assist with care. 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 - Urine culture negative. - No treatment required currently. (6) Sore throat: Code(s): J02.9 - Acute pharyngitis, unspecified Status: Acute Assessment and Plan: Acute. - Possibly URI. - Much improved with Benzocain/Menthol lozenges. - Continue Lozanges PRN. (7) Lymphadenopathy of left cervical region: Code(s): R59.0 - Localized enlarged lymph nodes Status: Acute Assessment and Plan: Acute. - Possibly related to URI. - Much imnproved. - Continue supportive care. Plan General surgeon consulted with possible new sigmoid ileus. Further mgt pending surgery recommendations and BM results. Time Spent With Patient Time with patient: 15 - 25 minutes Subjective Date/time seen: 11/18/24 12:02 Patient states he still has pain on his RLQ and still hasn't had a BM. Can't remember if he had one yesterday. Interval history: Patient on bedrest and looks to be frustrated and distressed due to not having a BM. Review of Systems Review of Systems: All systems reviewed & are unremarkable except as noted in HPI and below Exam Narrative: General: Fair appearing, gen muscle weakness. HEENT: Atraumatic, PERRL, EOMI, moist mucosa. NECK: Supple. Lungs: Clear bilaterally. Heart: RRR, no murmurs. Abdomen: Tenderness LLQ, +ve BS. Neuro: Fairly oriented but with some forgetfulness, no focal neuro deficits noted. Psych: Calm and co-operative. Objective Data Vital Signs Vital Signs: Vital Signs - 24 hr 11/17/24 15:35 11/17/24 16:00 11/17/24 20:00 Temperature 97.9 F Pulse Rate 65 63 Respiratory Rate 20 Blood Pressure 110/54 L Pulse Oximetry 98 Oxygen Delivery Room Air 11/17/24 20:00 11/17/24 21:14 11/17/24 21:37 Temperature 97.6 F Pulse Rate 57 L 60 60 Respiratory Rate 16 Blood Pressure 114/53 L Pulse Oximetry 97 Oxygen Delivery 11/17/24 21:37 11/17/24 21:40 11/18/24 00:00 Temperature Pulse Rate 60 62 61 Respiratory Rate Blood Pressure 114/53 L 120/65 Pulse Oximetry Oxygen Delivery 11/18/24 04:00 11/18/24 05:28 11/18/24 08:00 Temperature 97.6 F Pulse Rate 55 L 78 62 Respiratory Rate 16 Blood Pressure 109/53 L Pulse Oximetry 95 Oxygen Delivery 11/18/24 08:10 11/18/24 08:19 Temperature 96.9 F L Pulse Rate 60 67 Respiratory Rate 16 Blood Pressure 116/57 L Pulse Oximetry 97 Oxygen Delivery Intake/Output Intake/Output: Intake & Output 11/15/24 11/16/24 11/17/24 11/18/24 23:59 23:59 23:59 23:59 Intake Total 100 2350 2250 400 Output Total 2150 1300 1550 Balance 100 200 950 -1150 Meds/Results Medications: Active Medications Generic Name Dose Route Start Last Admin Trade Name Freq PRN Reason Stop Dose Admin Acetaminophen 650 mg 11/15/24 20:48 11/17/24 09:05 Acetaminophen 325 Mg Tablet PO 650 mg Q6H PRN Administration Mild Pain (1-3) or Fever Hydrocodone Bitart/Acetaminophen 1 tab 11/15/24 21:31 11/18/24 05:25 Hydrocodone/Acetaminophen (*Crx) 5-325 Mg Tablet PO 1 tab Q8H PRN Administration Pain 4-10 Allopurinol 100 mg 11/16/24 09:00 11/18/24 08:20 Allopurinol 100 Mg Tablet PO 100 mg DAILY TENISHA Administration Amlodipine Besylate 2.5 mg 11/16/24 09:00 11/18/24 08:20 Amlodipine Besylate 2.5 Mg Tablet PO 2.5 mg QAM TENISHA Administration Artificial Tears 1 drop 11/15/24 21:31 Artificial Tears Ophth Soln 15 Ml Bottle EACH EYE Q12H PRN Dry Eyes Ascorbic Acid 500 mg 11/16/24 09:00 11/18/24 08:20 Ascorbic Acid 500 Mg Tablet PO 500 mg BID TENISHA Administration Atorvastatin Calcium 80 mg 11/16/24 21:00 11/17/24 21:14 Atorvastatin 40 Mg Tablet PO 80 mg HS TENISHA Administration Benzocaine 1 lozenge 11/15/24 20:48 11/15/24 21:58 Benzocaine/Menthol (*Bkc) 18 Ea Lozenge PO 1 lozenge PRN PRN Administration Sore Throat Bisacodyl 10 mg 11/15/24 21:31 11/16/24 15:33 Bisacodyl 10 Mg Suppository RECTAL 10 mg DAILY PRN Administration Constipation Bisacodyl 5 mg 11/17/24 15:56 11/18/24 08:19 Bisacodyl 5 Mg Tablet Ec PO 5 mg QAM PRN Administration Constipation Bisacodyl 5 mg 11/18/24 12:00 Bisacodyl 5 Mg Tablet Ec PO 11/18/24 12:01 ONCE ONE Calcium Carbonate 500 mg 11/16/24 09:00 11/18/24 08:19 Calcium/Vitamin D 500 Mg/5 Mcg (200 I.U.) Tablet PO 500 mg BID TENISHA Administration Carbidopa/Levodopa 3 tablet 11/16/24 09:00 11/18/24 08:20 Carbidopa/Levodopa 25/100 Mg Tablet PO 3 tablet TID TENISHA Administration Carvedilol 3.125 mg 11/15/24 21:50 11/18/24 08:19 Carvedilol 3.125 Mg Tablet PO 3.125 mg Q12HR TENISHA Administration Duloxetine HCl 60 mg 11/16/24 09:00 11/18/24 08:20 Duloxetine Hcl 60 Mg Capsule.Dr PO 60 mg DAILY TENISHA Administration Ferrous Sulfate 325 mg 11/16/24 09:00 11/18/24 08:19 Ferrous Sulfate [address] PO 325 mg BID TENISHA Administration Finasteride 5 mg 11/16/24 21:00 11/17/24 21:14 Finasteride 5 Mg Tablet PO 5 mg QHS TENISHA Administration Folic Acid 1 mg 11/16/24 09:00 11/18/24 08:19 Folic Acid 1 Mg Tablet PO 1 mg DAILY TENISHA Administration Gabapentin 300 mg 11/16/24 09:00 11/18/24 08:20 Gabapentin 300 Mg Capsule PO 300 mg BID TENISHA Administration Levothyroxine Sodium 100 mcg 11/16/24 06:30 11/18/24 05:25 Levothyroxine Sodium 100 Mcg Tablet PO 100 mcg DAILY@0630 TENISHA Administration Lidocaine 1 patch 11/16/24 08:40 11/17/24 03:49 Lidocaine 5% Patch TOPICAL 1 patch DAILY PRN Administration pain Loratadine 10 mg 11/16/24 09:00 11/18/24 08:20 Loratadine 10 Mg Tablet PO 10 mg DAILY TENISHA Administration Methotrexate 2.5 mg 11/18/24 09:00 11/18/24 08:19 Methotrexate 2.5 Mg Tab (*Chemo) PO 2.5 mg Th@0900 TENISHA Administration Oxybutynin Chloride 10 mg 11/16/24 09:00 11/18/24 08:20 Oxybutynin Chloride Xl 5 Mg Tab.Er.24 PO 10 mg DAILY TENISHA Administration Pantoprazole Sodium 40 mg 11/16/24 09:00 11/18/24 08:20 Pantoprazole 40 Mg Tablet PO 40 mg QAM TENISHA Administration Polyethylene Glycol 17 gm 11/17/24 16:00 11/18/24 08:19 Polyethylene Glycol 3350 17 Gm Powd.Pack PO 17 gm QAM TENISHA Administration Polyethylene Glycol 17 gm 11/18/24 12:00 Polyethylene Glycol 3350 17 Gm Powd.Pack PO 11/18/24 12:01 ONCE ONE Potassium Chloride 10 meq 11/16/24 09:00 11/18/24 08:19 Potassium Chloride 10 Meq Er Tablet PO 10 meq DAILY TENISHA Administration Senna 8.6 mg 11/16/24 09:00 11/18/24 08:19 Sennosides 8.6 Mg Tablet PO 8.6 mg BID TENISHA Administration Spironolactone 25 mg 11/16/24 09:00 11/18/24 08:19 Spironolactone 25 Mg Tablet PO 25 mg DAILY TENISHA Administration Tamsulosin HCl 0.8 mg 11/16/24 09:00 11/18/24 08:20 Tamsulosin Hcl 0.4 Mg Capsule PO 0.8 mg DAILY TENISHA Administration Vitamin D 5,000 units 11/16/24 09:00 11/18/24 08:19 Cholecalciferol 5,000 Units Tablet PO 5,000 units DAILY TENISHA Administration Radiology Results: ITS Impressions Chest X-Ray 11/15/24 14:47 IMPRESSION: 1. No acute cardiopulmonary disease. Head CT 11/15/24 15:25 IMPRESSION: 1. Old infarcts involving the cerebellum, left parietal lobe, and left frontal lobe. 2. Mild nonspecific cerebral white matter disease, which likely represents chronic small vessel ischemic disease. Pelvis CT 11/15/24 15:28 IMPRESSION: 1. Severe osteoarthritis of the hips. 2. Wall thickening of the sigmoid colon, consistent with colitis. Knee X-Ray 11/15/24 15:35 IMPRESSION: 1. 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 No acute fracture identified. Abdomen X-Ray 11/17/24 14:49 IMPRESSION: 1. Distended sigmoid colon, which may be adynamic ileus or less likely distal obstruction. Labs Labs: Laboratory Results - last 24 hr 11/17/24 11/18/24 11/18/24 12:19 05:51 05:51 WBC 6.3 6.0 RBC 3.07 L 2.90 L Hgb 8.7 L 8.1 L Hct 28.0 L 25.9 L MCV 91.2 89.3 MCH 28.3 27.9 MCHC 31.1 L 31.3 L RDW 19.4 H 19.3 H Plt Count 160 162 MPV 9.5 9.9 Immature Gran % (Auto) Not Reportable Not Reportable Neut % (Auto) Not Reportable Not Reportable Lymph % (Auto) Not Reportable Not Reportable Sterling % (Auto) Not Reportable Not Reportable Eos % (Auto) Not Reportable Not Reportable Baso % (Auto) Not Reportable Not Reportable Lymph # (Auto) Not Reportable Not Reportable Sterling # (Auto) Not Reportable Not Reportable Eos # (Auto) Not Reportable Not Reportable Baso # (Auto) Not Reportable Not Reportable Abs Immat Gran (auto) Not Reportable Not Reportable Absolute Neuts (auto) Not Reportable Not Reportable Absolute Nucleated RBC Not Reportable Not Reportable Total Counted 100 100 Neutrophils % (Manual) 45 L 47 Lymphocytes % (Manual) 44.0 43 Monocytes % (Manual) 6 8 Eosinophils % (Manual) 4 Basophils % (Manual) 1 Nucleated RBC % Not Reportable Not Reportable Abs Lymphs (Manual) 2.77 2.58 Abs Monocytes (Manual) 0.37 0.48 Absolute Eos (Manual) 0.25 Abs Basophils (Manual) 0.06 Atypical Lymphocytes Present Smudge Cells Few Present Other Cell Type Not Reportable Platelet Estimate Adequate Adequate Anisocytosis 2+ 2+ Microcytosis 1+ 1+ Ovalocytes 1+ Schistocytes None seen None seen Sodium 131 L 131 L Potassium 3.8 4.3 4.2 Chloride 97 L 98 Carbon Dioxide 26 26 Anion Gap 8 7 BUN 12 D 11 Creatinine 0.91 0.92 Estim Creat Clear Calc 55 54 Estimated GFR > 60 > 60 Glucose 116 H 90 Calcium 8.3 L 8.8 Quality VTE Prophylaxis VTE prophylaxis: mechanical ordered (SCDs) Hospitalist MIPS Advance Care Plan I have confirmed that the patient's Advanced Care Plan is present, code status is documented, or surrogate decision maker is listed in patient medical record.: Yes Medication Reconciliation I have utilized all available resources to obtain, update and review the patients current medications (includes all prescriptions, OTC, herbals, cannabis, and nutritional supplements).: Yes
--- NOTE | 2024-11-18 13:46 | P.CONGS_ITS ---
Assessment and Plan Assessment and plan (1) Adynamic ileus: Code(s): K56.0 - Paralytic ileus Status: Acute Assessment and Plan: Patient admitted for syncope. He had a KUB yesterday for constipation that showed distended sigmoid colon. This is the reason for our consultation. He has not had a bowel movement in 2 days but is passing flatus. There was no stool ball or mass on digital rectal exam. He also had colonoscopy a year ago that was normal other than diverticulosis and polypectomy of a tubular adenoma. He denies any abdominal pain at this time and only mild diffuse tenderness. He does not have an acute surgical abdomen. His WBC count has been normal for days and he is afebrile. Would recommend trying to stimulate his bowels and continue to monitor. There is no obvious surgical issue at this time. If he develops a fever, leukocytosis, abdominal pain, or vomiting, then I would recommend getting a CT scan of the abdomen and pelvis to re-evaluate. His initial CT of the pelvis 3 days ago showed possible mild colitis of the sigmoid colon, but he does not have any current clinical evidence of colitis/diverticulitis at this time with a normal white count and no abdominal pain. Continue to monitor with serial exams. Okay to advance diet as tolerated. Since there is no surgical indication at this time, therefore we will monitor peripherally. (2) Constipation: Qualifiers: Constipation type: unspecified constipation type Qualified Code(s): K 59.00 - Constipation, unspecified Code(s): K59.00 - Constipation, unspecified Status: Acute Assessment and Plan: Continue with bowel stimulation. Currently receiving Dulcolax orally and rectally, senna, and Miralax. (3) Syncope and collapse: Code(s): R55 - Syncope and collapse Status: Acute (4) Chronic indwelling Duron catheter: Code(s): Z97.8 - Presence of other specified devices Status: Acute (5) Parkinson disease: Code(s): G20 - Parkinson's disease Status: Acute (6) COPD (chronic obstructive pulmonary disease): Qualifiers: COPD type: unspecified COPD Qualified Code(s): J44.9 - Chronic obstructive pulmonary disease, unspecified Code(s): J44.9 - Chronic obstructive pulmonary disease, unspecified Status: Acute (7) Stage III chronic kidney disease: Qualifiers: Chronic kidney disease stage 3 subtype: stage 3a (GFR 45-59) Qualified Code(s): N18.31 - Chronic kidney disease, stage 3a Code(s): N18.3 - Chronic kidney disease, stage 3 (moderate) Status: Acute Plan I have discussed the patient's case and plan of care with Dr. Dumont. 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 He presented to the ER from [facility] 3 days ago due to a syncopal episode on the toilet. He was admitted for syncope and possible UTI. He has had further workup for the syncope and antibiotics stopped as urine culture was negative. He reported constipation yesterday and had a KUB ordered, which showed distention of the sigmoid colon, which may be adynamic ileus or less likely distal obstruction. Our service was consulted following these results. His diet was backed down to clear liquids. He has not had any nausea or vomiting. He is still passing flatus. Last bowel movement was 2 days ago. He denies any abdominal pain at this time. CT of the pelvis on admission, 3 days ago, did mention mild sigmoid colitis with scattered diverticulosis. He has had a normal white blood cell count for 3 days and is not currently on any antibiotics. He had a colonoscopy 1 year ago with findings of diverticulosis and polypectomy of a tubular adenoma. The patient has no other complaints at this time other than constipation. He is currently receiving senna, MiraLax, and Dulcolax. Review of Systems 2 Review of Systems: All systems reviewed & are unremarkable except as noted in HPI and below PMFSH Past Medical History Medical History (Updated 11/18/24 @ 13:59 by SHANICE Chaves) Depression with anxiety History of infection due to ESBL Escherichia coli Urinary retention due to benign prostatic hyperplasia Venous stasis dermatitis of both lower extremities Lung nodule Collagenous colitis Chronic indwelling Duron catheter Diastolic dysfunction Echo 01/2022: EF 60 65% Chronic obstructive pulmonary disease Hypothyroidism Benign prostatic hyperplasia Arthritis Degenerative disc disease Renal cell carcinoma of right kidney Status post right nephrectomy. Gastroesophageal reflux disease Silicosis Obstructive sleep apnea Chronic anemia Chronic kidney disease, stage 3 Baseline creatinine ranges between 1.30 and 1.40. Degenerative arthritis of knee, bilateral Chronic lymphocytic leukemia Cognitive impairment Essential hypertension Parkinson disease Primary osteoarthritis of both knees Surgical History Surgical History Status post open reduction with internal fixation of fracture Right femoral neck fracture History of arthroscopy of right knee History of cholecystectomy History of appendectomy History of repair of left rotator cuff History of cataract extraction History of right nephrectomy (2003) History of back surgery Family History Family History Father Family history of liver disease Family history of lung cancer Patient's father is Family history of primary malignant neoplasm of liver Mother Family history of heart disease in male family member before age 55 Patient's mother is Family history of coronary artery disease Acute myocardial infarction Sibling Family history of lung cancer Family history of malignant neoplasm of bone Patient's sister is Patient's brother is Malignant neoplasm of prostate Grandparent Family history of arthritis Other Family history of malignant neoplasm of kidney Social History Social History Social History: He is . The patient resides at [facility]. His son lives in the local area. The patient is retired from [employer]. No alcohol, tobacco, or illicit substance. He uses wheelchair for mobility and can stand to pivot. 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 Gender identity (if verbalized by the patient): Male Spiritual care concerns: No Meds Home Medications and Allergies Home Medications ?Medication ?Instructions ?Recorded ?Confirmed ?Type levothyroxine 100 mcg tablet 100 mcg PO DAILY #90 tabs 10/17/22 11/15/24 Rx alendronate 70 mg tablet 70 mg PO WEEKLY 06/03/23 11/15/24 History bisacodyl 10 mg rectal suppository 10 mg RECTAL DAILY PRN Constipation 06/03/23 11/15/24 History (Dulcolax (bisacodyl)) finasteride 5 mg tablet 5 mg PO QHS #90 tabs 06/27/23 11/15/24 Rx tamsulosin 0.4 mg capsule 0.8 mg (2 x 0.4 mg) PO DAILY #180 06/27/23 11/15/24 Rx caps albuterol sulfate 90 mcg/actuation 1 puff inhalation Q4H PRN 08/18/23 11/15/24 Rx aerosol inhaler shortness of breath or wheezing #8.5 grams duloxetine 60 mg capsule,delayed 60 mg PO DAILY #30 caps 08/18/23 11/15/24 Rx release lidocaine 5 % topical patch 1 patch topical DAILY #15 ea 08/30/23 11/15/24 Rx (Lidoderm) carvedilol 3.125 mg tablet 3.125 mg PO BID 11/22/23 11/15/24 History dextran 70-hypromellose 0.1 %-0.3 1 drp EACH EYE Q12H PRN Dry Eyes 11/22/23 11/15/24 History % eye drops (Artificial Tears (dextran 70-hypromellose)) furosemide 20 mg tablet 40 mg PO DAILY 11/22/23 11/15/24 History gabapentin 300 mg capsule 300 mg PO BID 11/22/23 11/15/24 History magnesium hydroxide 400 mg/5 mL 30 ml PO HS PRN Constipation 11/22/23 11/15/24 History oral suspension (Milk of Magnesia) omeprazole 20 mg capsule,delayed 20 mg PO DAILY 11/22/23 11/15/24 History release oxybutynin chloride 10 mg 10 mg PO DAILY 11/22/23 11/15/24 History tablet,extended release 24 hr atorvastatin 80 mg tablet 80 mg PO HS 12/04/23 11/15/24 History sennosides 8.6 mg tablet (Senokot) 8.6 mg PO BID 12/04/23 11/15/24 History hydrocodone 5 mg-acetaminophen 325 1 tablet PO Q8H PRN Pain (Scale 02/13/24 11/15/24 History mg tablet Score 4-6) carbidopa 25 mg-levodopa 100 mg 3 tablet PO TID #240 tabs 04/13/24 11/15/24 Rx tablet (Sinemet) ondansetron 8 mg disintegrating 8 mg PO Q8H 04/13/24 11/15/24 History tablet allopurinol 100 mg tablet 100 mg PO DAILY 11/15/24 11/15/24 History amlodipine 5 mg tablet 2.5 mg PO QAM 11/15/24 11/15/24 History ascorbic acid (vitamin C) 500 mg 500 mg PO BID 11/15/24 11/15/24 History capsule calcium 600 mg (as 1 tablet PO BID 11/15/24 11/15/24 History carbonate)-vitamin D3 10 mcg (400 unit) tablet (Calcium 600 + D(3)) cholecalciferol (vitamin D3) 125 5,000 unit PO DAILY 11/15/24 11/15/24 History mcg (5,000 unit) tablet (Vitamin D3) ferrous sulfate 325 mg (65 mg 325 mg PO BID 11/15/24 11/15/24 History iron) tablet,delayed release folic acid 1 mg tablet 1 mg PO DAILY 11/15/24 11/15/24 History loratadine 10 mg tablet (Allergy 10 mg PO DAILY 11/15/24 11/15/24 History Relief (loratadine)) methotrexate sodium 2.5 mg tablet 2.5 mg PO WEEKLY 11/15/24 11/15/24 History potassium chloride 10 mEq 10 meq PO DAILY 11/15/24 11/15/24 History tablet,extended release spironolactone 25 mg tablet 25 mg PO DAILY 11/15/24 11/15/24 History Allergies Allergy/AdvReac Type Severity Reaction Status Date / Time neomycin Allergy Unknown rash Verified 11/15/24 14:26 Sulfa (Sulfonamide Allergy Unknown Rash Verified 11/15/24 14:26 Antibiotics) castor oil AdvReac Intermediate Nausea and Verified 11/15/24 14:26 Vomiting erythromycin base AdvReac Intermediate SHAKING, Verified 11/15/24 14:26 HEADACHE Vital Signs Vital Signs - 24 hr 11/17/24 15:35 11/17/24 16:00 11/17/24 20:00 Temperature 97.9 F Pulse Rate 65 63 Respiratory Rate 20 Blood Pressure 110/54 L Pulse Oximetry 98 Oxygen Delivery Room Air 11/17/24 20:00 11/17/24 21:14 11/17/24 21:37 Temperature 97.6 F Pulse Rate 57 L 60 60 Respiratory Rate 16 Blood Pressure 114/53 L Pulse Oximetry 97 Oxygen Delivery 11/17/24 21:37 11/17/24 21:40 11/18/24 00:00 Temperature Pulse Rate 60 62 61 Respiratory Rate Blood Pressure 114/53 L 120/65 Pulse Oximetry Oxygen Delivery 11/18/24 04:00 11/18/24 05:28 11/18/24 08:00 Temperature 97.6 F Pulse Rate 55 L 78 62 Respiratory Rate 16 Blood Pressure 109/53 L Pulse Oximetry 95 Oxygen Delivery 11/18/24 08:10 11/18/24 08:19 Temperature 96.9 F L Pulse Rate 60 67 Respiratory Rate 16 Blood Pressure 116/57 L Pulse Oximetry 97 Oxygen Delivery Exam 2 Const: General: comfortable and no acute distress Nutritional Appearance: a verage body habitus Orientation/consciousness: patient oriented x3 HENMT: Head: normocephalic and atraumatic Ears: hearing grossly normal bilaterally Mouth: Yes moist mucous membranes Eyes: General: appearance normal, both eyes and all related structures P upils: Equal, round and reactive pupils present Neck: Neck: normal visual inspection and full ROM Resp: Effort & Inspection: no respiratory distress Auscultation: clear to auscultation bilaterally Cardio: Rate: regular rate Rhythm: regular rhythm Peripheral pulses: P eripheral pulses 2+ throughout GI: Inspection: non-distended, scar (Large transverse right upper quadrant scar) and no visible herniation GI Palp: Yes Soft to palpation, Yes Tenderness to palpation present (GI) (Very mild diffuse tenderness), No Guarding due to palpation present (GI), Yes No hepatosplenomegaly present and No Rebound tenderness present Percussion: Yes normal to percussion Auscultation: n ormal bowel sounds Rectal Exam: visual inspection normal, No External hemorrhoid(s) present, No fecal impaction, No mass and No tenderness Skin: General skin exam: normal color Neuro: General: moves all extremities and no focal motor deficits Speech: n ormal speech Motor exam (neuro): 5/5 motor strength present throughout Extrem: General: normal to inspection and no edema Psych: Mental Status: mental status grossly normal Attitude: cooperative Insight: Good insight present (Psych) Judgement: Good judgement present (Psych) Results Labs 11/18/24 05:51 11/18/24 05:51 Labs: Abnormal lab results 11/18/24 Range/Units 05:51 RBC 2.90 L (4.6-6.20) M/mm3 Hgb 8.1 L (14.0-18.0) g/dL Hct 25.9 L (42.0-52.0) % MCHC 31.3 L (32-36) g/dl RDW 19.3 H (11.5-14.5) % Sodium 131 L (137-145) mmol/L Diabetes panel 11/18/24 11/18/24 Range/Units 05:51 05:51 Sodium 131 L (137-145) mmol/L Potassium 4.3 4.2 (3.4-5.0) mmol/L Chloride 98 (98-107) mmol/L Carbon Dioxide 26 (22-30) mmol/L BUN 11 (9-20) mg/dL Creatinine 0.92 (0.7-1.3) mg/dL Glucose 90 (65-110) mg/dL Calcium 8.8 (8.4-10.2) mg/dL Calcium panel 11/18/24 Range/Units 05:51 Calcium 8.8 (8.4-10.2) mg/dL Pituitary panel 11/18/24 11/18/24 Range/Units 05:51 05:51 Sodium 131 L (137-145) mmol/L Potassium 4.3 4.2 (3.4-5.0) mmol/L Chloride 98 (98-107) mmol/L Carbon Dioxide 26 (22-30) mmol/L BUN 11 (9-20) mg/dL Creatinine 0.92 (0.7-1.3) mg/dL Glucose 90 (65-110) mg/dL Calcium 8.8 (8.4-10.2) mg/dL Adrenal panel 11/18/24 11/18/24 Range/Units 05:51 05:51 Sodium 131 L (137-145) mmol/L Potassium 4.3 4.2 (3.4-5.0) mmol/L Chloride 98 (98-107) mmol/L Carbon Dioxide 26 (22-30) mmol/L BUN 11 (9-20) mg/dL Creatinine 0.92 (0.7-1.3) mg/dL Glucose 90 (65-110) mg/dL Calcium 8.8 (8.4-10.2) mg/dL All other labs normal. Imaging Additional studies: ITS Impressions Chest X-Ray 11/15/24 14:47 IMPRESSION: 1. No acute cardiopulmonary disease. Head CT 11/15/24 15:25 IMPRESSION: 1. Old infarcts involving the cerebellum, left parietal lobe, and left frontal lobe. 2. Mild nonspecific cerebral white matter disease, which likely represents chronic small vessel ischemic disease. Pelvis CT 11/15/24 15:28 IMPRESSION: 1. Severe osteoarthritis of the hips. 2. Wall thickening of the sigmoid colon, consistent with colitis. Knee X-Ray 11/15/24 15:34 IMPRESSION: 1. Mild left knee osteoarthritis. 2. Small left knee joint effusion. Knee X-Ray 11/15/24 15:35 IMPRESSION: 1. 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 No acute fracture identified. Abdomen X-Ray 11/17/24 14:49 IMPRESSION: 1. Distended sigmoid colon, which may be adynamic ileus or less likely distal obstruction.
[2024-11-18] MEDS: ATORVASTATIN 40 MG TABLET 80 MG PO (19:55)
[2024-11-18] MEDS: FINASTERIDE 5 MG TABLET PO (19:58)
[2024-11-19] VITALS (15 sets, daily range): BP systolic 98–114; BP diastolic 48–72; PULSE 48–80; RESP 16–18; TEMP 36.2–37; O2SAT 96–98
[2024-11-19] MEDS: HYDROcodone/acetaminophen (*CRX) 5-325 MG TABLET 1 TAB PO ×3 (05:39→21:27)
[2024-11-19] MEDS: LEVOTHYROXINE SODIUM 100 MCG TABLET PO (05:40)
[2024-11-19] MEDS: DULoxetine HCL 60 MG CAPSULE.DR PO (09:13)
[2024-11-19] MEDS: CHOLECALCIFEROL 5,000 UNITS TABLET 5000 UNITS PO (09:13)
[2024-11-19] MEDS: POTASSIUM CHLORIDE 10 MEQ ER TABLET PO (09:13)
[2024-11-19] MEDS: ASCORBIC ACID 500 MG TABLET PO ×2 (09:13→16:55)
[2024-11-19] MEDS: CARBIDOPA/LEVODOPA 25/100 MG TABLET 3 TABLET PO ×3 (09:14→16:55)
[2024-11-19] MEDS: GABAPENTIN 300 MG CAPSULE PO ×2 (09:14→16:54)
[2024-11-19] MEDS: TAMSULOSIN HCL 0.4 MG CAPSULE 0.8 MG PO (09:14)
[2024-11-19] MEDS: carvediloL 3.125 MG TABLET PO ×2 (09:14→20:35)
[2024-11-19] MEDS: LORATADINE 10 MG TABLET PO (09:14)
[2024-11-19] MEDS: SPIRONOLACTONE 25 MG TABLET PO (09:14)
[2024-11-19] MEDS: SENNOSIDES 8.6 MG TABLET PO ×2 (09:14→16:54)
[2024-11-19] MEDS: FOLIC ACID 1 MG TABLET PO (09:14)
[2024-11-19] MEDS: FERROUS SULFATE 325 MG TABLET DR PO ×2 (09:14→16:54)
[2024-11-19] MEDS: CALCIUM/VITAMIN D 500 MG/5 MCG (200 I.U.) TABLET PO ×2 (09:14→16:55)
[2024-11-19] MEDS: amLODIPine BESYLATE 2.5 MG TABLET PO (09:14)
[2024-11-19] MEDS: allopurinoL 100 MG TABLET PO (09:14)
[2024-11-19] MEDS: oxyBUTYnin CHLORIDE XL 5 MG TAB.ER.24 10 MG PO (09:14)
[2024-11-19] MEDS: PANTOPRAZOLE 40 MG TABLET PO (09:14)
[2024-11-19] MEDS: polyethylene glycoL 3350 17 GM POWD.PACK PO (09:15)
--- NOTE | 2024-11-19 15:06 | P.PNIM_ITS ---
Progress Note: A&P Assessment and Plan (1) Adynamic ileus: Code(s): K56.0 - Paralytic ileus Status: Acute Assessment and Plan: - KUB 11/17/24: . Distended sigmoid colon, which may be adynamic ileus or less likely distal obstruction. - Repeat KUB,11/19: Nonobstructive bowel gas pattern. - Patient reporting still reporting mod to sev LLQ abdom. discomfort. - Still unable to pass BM though feeling the urge he needs to go. - Seen by general surgery and no signs of obstruction noted. - CT abd/pelvis ordered. - Started on full-liquid diet per surgery. - Continue stool softeners and laxatives PRN. - Continue supportive care. (2) Syncope and collapse: Code(s): R55 - Syncope and collapse Status: Acute Assessment and Plan: - Unknown cause. - CT head negative for acute. - EKG: Junctional Rhythm, RBBB. - No significant arrhythmias on telemetry. - CXR negative for acute. - CT hip negative. - Art. Knees X-Ray negative. - No repeat episodes inpatient. - Monitor for now. (3) Chronic indwelling Strauss catheter: Code(s): Z97.8 - Presence of other specified devices Status: Acute Assessment and Plan: Chronic. - Changed on admission. - Strauss with clear, yellow urine. - Maintain strauss and monitor for now. (4) Cognitive impairment: Code(s): R41.89 - Other symptoms and signs involving cognitive functions and awareness Status: Acute Assessment and Plan: Chronic. - Possibly an element of dementia with advancing age in setting of Parkinson's disease. - CT head negative for acute. - Continue safety monitoring and assist with care. 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 - Urine culture negative. - No treatment required currently. (6) Sore throat: Code(s): J02.9 - Acute pharyngitis, unspecified Status: Acute Assessment and Plan: Acute. - Possibly URI. - Much improved with Benzocain/Menthol lozenges. - Continue Lozanges PRN. (7) Lymphadenopathy of left cervical region: Code(s): R59.0 - Localized enlarged lymph nodes Status: Acute Assessment and Plan: Acute. - Possibly related to URI. - Much imnproved. - Continue supportive care. Plan General surgeon consulted with possible new sigmoid ileus. Further mgt pending surgery recommendations and BM results. Time Spent With Patient Time with patient: 15 - 25 minutes Subjective Date/time seen: 11/19/24 14:06 Patient states he still has a lot of pain to his abdomen especially to the left lower quadrant. States he has poor appetite and still feels like he needs to have a BM but has not yet. Review of Systems Review of Systems: All systems reviewed & are unremarkable except as noted in HPI and below Exam Narrative: General: Fair appearing, gen muscle weakness and mod distress with pain to LLQ. HEENT: Atraumatic, PERRL, EOMI, moist mucosa. NECK: Supple. Lungs: Clear bilaterally. Heart: RRR, no murmurs. Abdomen: Severe tenderness LLQ, +ve BS. Neuro: Lethargic, fairly oriented but with some forgetfulness, no focal neuro deficits noted. Psych: Calm and co-operative. Objective Data Vital Signs Vital Signs: Vital Signs - 24 hr 11/18/24 16:00 11/18/24 19:53 11/18/24 19:53 Temperature 98.1 F Pulse Rate 56 L 56 L 56 L Respiratory Rate 16 Blood Pressure 119/59 L 119/59 L Pulse Oximetry 99 Oxygen Delivery 11/18/24 19:56 11/18/24 19:57 11/18/24 20:00 Temperature Pulse Rate 56 L 65 Respiratory Rate Blood Pressure 94/48 L Pulse Oximetry Oxygen Delivery Room Air 11/18/24 20:00 11/19/24 00:00 11/19/24 04:00 Temperature Pulse Rate 56 L 48 L 57 L Respiratory Rate Blood Pressure Pulse Oximetry Oxygen Delivery 11/19/24 06:41 11/19/24 08:00 11/19/24 08:34 Temperature 98.1 F 98.6 F Pulse Rate 58 L 63 68 Respiratory Rate 18 18 Blood Pressure 104/61 112/60 Pulse Oximetry 97 96 Oxygen Delivery 11/19/24 09:14 11/19/24 11:52 11/19/24 12:00 Temperature 98.1 F Pulse Rate 80 71 67 Respiratory Rate 16 Blood Pressure 106/60 Pulse Oximetry 98 Oxygen Delivery 11/19/24 13:52 Temperature 97.2 F L Pulse Rate 65 Respiratory Rate 16 Blood Pressure 114/48 L Pulse Oximetry 97 Oxygen Delivery Intake/Output Intake/Output: Intake & Output 11/16/24 11/17/24 11/18/24 11/19/24 23:59 23:59 23:59 23:59 Intake Total 2350 2250 970 1135 Output Total 2150 1300 2550 1800 Balance 200 425 -5724 -081 Meds/Results Medications: Active Medications Generic Name Dose Route Start Last Admin Trade Name Freq PRN Reason Stop Dose Admin Acetaminophen 650 mg 11/15/24 20:48 11/17/24 09:05 Acetaminophen 325 Mg Tablet PO 650 mg Q6H PRN Administration Mild Pain (1-3) or Fever Hydrocodone Bitart/Acetaminophen 1 tab 11/15/24 21:31 11/19/24 13:26 Hydrocodone/Acetaminophen (*Crx) 5-325 Mg Tablet PO 1 tab Q8H PRN Administration Pain 4-10 Allopurinol 100 mg 11/16/24 09:00 11/19/24 09:14 Allopurinol 100 Mg Tablet PO 100 mg DAILY TENISHA Administration Amlodipine Besylate 2.5 mg 11/16/24 09:00 11/19/24 09:14 Amlodipine Besylate 2.5 Mg Tablet PO 2.5 mg QAM TENISHA Administration Artificial Tears 1 drop 11/15/24 21:31 Artificial Tears Ophth Soln 15 Ml Bottle EACH EYE Q12H PRN Dry Eyes Ascorbic Acid 500 mg 11/16/24 09:00 11/19/24 09:13 Ascorbic Acid 500 Mg Tablet PO 500 mg BID TENISHA Administration Atorvastatin Calcium 80 mg 11/16/24 21:00 11/18/24 19:55 Atorvastatin 40 Mg Tablet PO 80 mg HS TENISHA Administration Benzocaine 1 lozenge 11/15/24 20:48 11/15/24 21:58 Benzocaine/Menthol (*Bkc) 18 Ea Lozenge PO 1 lozenge PRN PRN Administration Sore Throat Bisacodyl 10 mg 11/15/24 21:31 11/16/24 15:33 Bisacodyl 10 Mg Suppository RECTAL 10 mg DAILY PRN Administration Constipation Bisacodyl 5 mg 11/17/24 15:56 11/18/24 08:19 Bisacodyl 5 Mg Tablet Ec PO 5 mg QAM PRN Administration Constipation Calcium Carbonate 500 mg 11/16/24 09:00 11/19/24 09:14 Calcium/Vitamin D 500 Mg/5 Mcg (200 I.U.) Tablet PO 500 mg BID TENISHA Administration Carbidopa/Levodopa 3 tablet 11/16/24 09:00 11/19/24 13:26 Carbidopa/Levodopa 25/100 Mg Tablet PO 3 tablet TID TENISHA Administration Carvedilol 3.125 mg 11/15/24 21:50 11/19/24 09:14 Carvedilol 3.125 Mg Tablet PO 3.125 mg Q12HR TENISHA Administration Duloxetine HCl 60 mg 11/16/24 09:00 11/19/24 09:13 Duloxetine Hcl 60 Mg Capsule.Dr PO 60 mg DAILY TENISHA Administration Ferrous Sulfate 325 mg 11/16/24 09:00 11/19/24 09:14 Ferrous Sulfate [address] PO 325 mg BID TENISHA Administration Finasteride 5 mg 11/16/24 21:00 11/18/24 19:58 Finasteride 5 Mg Tablet PO 5 mg QHS TENISHA Administration Folic Acid 1 mg 11/16/24 09:00 11/19/24 09:14 Folic Acid 1 Mg Tablet PO 1 mg DAILY TENISHA Administration Gabapentin 300 mg 11/16/24 09:00 11/19/24 09:14 Gabapentin 300 Mg Capsule PO 300 mg BID TENISHA Administration Levothyroxine Sodium 100 mcg 11/16/24 06:30 11/19/24 05:40 Levothyroxine Sodium 100 Mcg Tablet PO 100 mcg DAILY@0630 TENISHA Administration Lidocaine 1 patch 11/16/24 08:40 11/17/24 03:49 Lidocaine 5% Patch TOPICAL 1 patch DAILY PRN Administration pain Loratadine 10 mg 11/16/24 09:00 11/19/24 09:14 Loratadine 10 Mg Tablet PO 10 mg DAILY TENISHA Administration Methotrexate 2.5 mg 11/18/24 09:00 11/18/24 08:19 Methotrexate 2.5 Mg Tab (*Chemo) PO 2.5 mg Th@0900 TENISHA Administration Oxybutynin Chloride 10 mg 11/16/24 09:00 11/19/24 09:14 Oxybutynin Chloride Xl 5 Mg Tab.Er.24 PO 10 mg DAILY TENISHA Administration Pantoprazole Sodium 40 mg 11/16/24 09:00 11/19/24 09:14 Pantoprazole 40 Mg Tablet PO 40 mg QAM TENISHA Administration Polyethylene Glycol 17 gm 11/17/24 16:00 11/19/24 09:15 Polyethylene Glycol 3350 17 Gm Powd.Pack PO 17 gm QAM TENISHA Administration Potassium Chloride 10 meq 11/16/24 09:00 11/19/24 09:13 Potassium Chloride 10 Meq Er Tablet PO 10 meq DAILY TENISHA Administration Senna 8.6 mg 11/16/24 09:00 11/19/24 09:14 Sennosides 8.6 Mg Tablet PO 8.6 mg BID TENISHA Administration Spironolactone 25 mg 11/16/24 09:00 11/19/24 09:14 Spironolactone 25 Mg Tablet PO 25 mg DAILY TENISHA Administration Tamsulosin HCl 0.8 mg 11/16/24 09:00 11/19/24 09:14 Tamsulosin Hcl 0.4 Mg Capsule PO 0.8 mg DAILY TENISHA Administration Vitamin D 5,000 units 11/16/24 09:00 11/19/24 09:13 Cholecalciferol 5,000 Units Tablet PO 5,000 units DAILY TENISHA Administration Radiology Results: ITS Impressions Chest X-Ray 11/15/24 14:47 IMPRESSION: 1. No acute cardiopulmonary disease. Head CT 11/15/24 15:25 IMPRESSION: 1. Old infarcts involving the cerebellum, left parietal lobe, and left frontal lobe. 2. Mild nonspecific cerebral white matter disease, which likely represents ch ronic small vessel ischemic disease. Pelvis CT 11/15/24 15:28 IMPRESSION: 1. Severe osteoarthritis of the hips. 2. Wall thickening of the sigmoid colon, consistent with colitis. Knee X-Ray 11/15/24 15:35 IMPRESSION: 1. 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 No acute fracture identified. Abdomen X-Ray 11/19/24 09:48 IMPRESSION: 1. Nonobstructive bowel gas pattern. Quality VTE Prophylaxis VTE prophylaxis: mechanical ordered (SCDs) Hospitalist MIPS Advance Care Plan I have confirmed that the patient's Advanced Care Plan is present, code status is documented, or surrogate decision maker is listed in patient medical record.: Yes Medication Reconciliation I have utilized all available resources to obtain, update and review the patients current medications (includes all prescriptions, OTC, herbals, cannabis, and nutritional supplements).: Yes
[2024-11-19] MEDS: FINASTERIDE 5 MG TABLET PO (20:35)
[2024-11-19] MEDS: ATORVASTATIN 40 MG TABLET 80 MG PO (20:35)
[2024-11-20] VITALS (8 sets, daily range): BP systolic 109–121; BP diastolic 50–55; PULSE 54–67; RESP 14–16; TEMP 36.7–36.9; O2SAT 98
[2024-11-20 05:24] LABS: Basophils Absolute Auto 0.1 K/mm3 (0.0-0.1); Basophils Percent Auto 0.9 % (0.2-1.2); Eosinophils Absolute Auto 0.2 K/mm3 (0-0.3); Eosinophils Percent Auto 4.1 % (0-4.4); Hematocrit 28.9 % (42.0-52.0); Hemoglobin 8.8 g/dL (14.0-18.0); Immature Granulocyte Absolute 0.03 K/mm3 (0.00-0.031); Immature Granulocyte Percent A 0.5 % (0-0.5); Lymphocytes Absolute Auto 3.24 K/mm3 (0.9-3.2); Lymphocytes Percent Auto 55.4 % (18.3-44.2); Mean Corpuscular HGB Conc 30.4 g/dl (32-36); Mean Corpuscular Hemoglobin 28.8 pg (26-34); Mean Corpuscular Volume 94.4 fl (80-100); Mean Platelet Volume 10.3 fl (7.4-10.4); Monocytes Absolute Auto 0.4 K/mm3 (0.1-0.6); Monocytes Percent Auto 6.7 % (2.6-8.5); Neutrophils Absolute Auto 1.9 K/mm3 (1.3-6.7); Neutrophils Percent Auto 32.4 % (45.5-73.1); Platelet Count Result 188 k/mm3 (150-375); Red Blood Count 3.06 M/mm3 (4.6-6.20); Red Cell Distribution Width 19.6 % (11.5-14.5); White Blood Count 5.9 K/mm3 (4.5-10.0)
[2024-11-20] MEDS: LEVOTHYROXINE SODIUM 100 MCG TABLET PO (05:24)
[2024-11-20] MEDS: HYDROcodone/acetaminophen (*CRX) 5-325 MG TABLET 1 TAB PO (05:26)
[2024-11-20 05:34] LABS: Anion Gap 8 mmol/L (4-12); Blood Urea Nitrogen 13 mg/dL (9-20); CRP 1.2 mg/dL (<1.0); Calcium 8.8 mg/dL (8.4-10.2); Carbon Dioxide 26 mmol/L (22-30); Chloride 97 mmol/L (98-107); Estimated CRCL calculation 52 ml/min; Estimated Glomerular Filt Rate > 60; Glucose 83 mg/dL (65-110); Potassium 4.5 mmol/L (3.4-5.0); Sodium 131 mmol/L (137-145)
[2024-11-20 06:25] LABS: Anisocytosis 2+; Burr Cells 1+; Platelet Estimate Adequate (Adequate); Schistocytes None Seen; Smudge Cells PRESENT
[2024-11-20] MEDS: CALCIUM/VITAMIN D 500 MG/5 MCG (200 I.U.) TABLET PO ×2 (08:49→16:47)
[2024-11-20] MEDS: amLODIPine BESYLATE 2.5 MG TABLET PO (08:49)
[2024-11-20] MEDS: DULoxetine HCL 60 MG CAPSULE.DR PO (08:49)
[2024-11-20] MEDS: SPIRONOLACTONE 25 MG TABLET PO (08:49)
[2024-11-20] MEDS: allopurinoL 100 MG TABLET PO (08:49)
[2024-11-20] MEDS: TAMSULOSIN HCL 0.4 MG CAPSULE 0.8 MG PO (08:49)
[2024-11-20] MEDS: carvediloL 3.125 MG TABLET PO (08:49)
[2024-11-20] MEDS: POTASSIUM CHLORIDE 10 MEQ ER TABLET PO (08:49)
[2024-11-20] MEDS: ASCORBIC ACID 500 MG TABLET PO ×2 (08:50→16:47)
[2024-11-20] MEDS: CHOLECALCIFEROL 5,000 UNITS TABLET 5000 UNITS PO (08:50)
[2024-11-20] MEDS: CARBIDOPA/LEVODOPA 25/100 MG TABLET 3 TABLET PO ×3 (08:50→16:47)
[2024-11-20] MEDS: GABAPENTIN 300 MG CAPSULE PO ×2 (08:50→16:47)
[2024-11-20] MEDS: FERROUS SULFATE 325 MG TABLET DR PO ×2 (08:50→16:47)
[2024-11-20] MEDS: FOLIC ACID 1 MG TABLET PO (08:50)
[2024-11-20] MEDS: polyethylene glycoL 3350 17 GM POWD.PACK PO (08:50)
[2024-11-20] MEDS: SENNOSIDES 8.6 MG TABLET PO ×2 (08:50→16:47)
[2024-11-20] MEDS: oxyBUTYnin CHLORIDE XL 5 MG TAB.ER.24 10 MG PO (08:50)
[2024-11-20] MEDS: PANTOPRAZOLE 40 MG TABLET PO (08:50)
[2024-11-20] MEDS: LORATADINE 10 MG TABLET PO (08:50)
== END 2024-11-20 17:40 | DRG 312 ==
LOC: ANHED 14:36 → ANH2MED 17:43
PROVIDERS: Internal Medicine; Admitting Provider Hospitalist; Emergency Provider Emergency Medicine; PCP Family Medicine; Visit Provider Nurse Practitioner Adult Health
DX: R55 Syncope and collapse (principal); N39.0 Urinary tract infection, site not specified; K56.0 Paralytic ileus; E03.9 Hypothyroidism, unspecified; G20.A1 Parkinson's disease without dyskinesia, without mention of fluctuations; G47.33 Obstructive sleep apnea (adult) (pediatric); I27.20 Pulmonary hypertension, unspecified; I12.9 Hypertensive chronic kidney disease with stage 1 through stage 4 chronic kidney disease, or unspecified chronic kidney disease; J44.9 Chronic obstructive pulmonary disease, unspecified; J02.9 Acute pharyngitis, unspecified; J06.9 Acute upper respiratory infection, unspecified; K21.9 Gastro-esophageal reflux disease without esophagitis; M17.0 Bilateral primary osteoarthritis of knee; N40.1 Benign prostatic hyperplasia with lower urinary tract symptoms; N18.30 Chronic kidney disease, stage 3 unspecified; R33.8 Other retention of urine; R59.0 Localized enlarged lymph nodes; Z66 Do not resuscitate; Z99.3 Dependence on wheelchair; Z97.8 Presence of other specified devices; Z85.528 Personal history of other malignant neoplasm of kidney; Z90.49 Acquired absence of other specified parts of digestive tract; Z90.5 Acquired absence of kidney; Z20.822 Contact with and (suspected) exposure to COVID-19
CPT/HCPCS: 36415; 70450; 71045; 72192; 73562; 74018; 74177; 80048; 80053; 81001; 84132; 85025; 86140; 87086; 87637; 87651; 93005; 96365; 99285; A9270; G0378; J2185; J7030; Q9967

== ENCOUNTER 2024-12-13 16:29 | Inpatient (IN) | payer MEDICARE, MEDICAID, SELFPAY ==
[2024-12-13] VITALS (44 sets, daily range): BP systolic 97–146; BP diastolic 54–114; PULSE 72–142; RESP 16–49; TEMP 36.5; O2SAT 91–100
--- NOTE | ~2024-12-13 | XR_ITS ---
EXAMINATION: XR chest 1V portable Exam Date/Time: 12/13/2024 17:55 IMPROVEMENT INTERN HISTORY: cough, covid Comparison: 11/15/2024. RESULT: Lines, tubes, and devices: None. Lungs and pleura: Patchy areas of subsegmental opacity in the left medial lung base and right lung b ase. Senescent/emphysematous change. Cardiomediastinal silhouette: Stable. Other: No acute osseous or upper abdominal finding. IMPRESSION: Subsegmental left medial basilar and right basilar atelectasis/consolidation. Reviewed, dictated and finalized at location K. OVEMENT INTERN
--- NOTE | ~2024-12-13 | CT_ITS ---
EXAMINATION: CT chest abdomen pelvis wo con DATE: 12/13/2024 19:36 INDICATION: follow up CXR, constipation, abd pain . TECHNIQUE: Computed tomography (CT) of the chest, abdomen, and pelvis was performed without intraveno us contrast. Automated exposure control and iterative reconstruction technique were employed. The dos e-length product was 1225.12 mGy-cm. COMPARISON: X-ray chest, same date; CT abdomen pelvis 11/20/2024 FINDINGS: Exam limited by beam hardening from arm down positioning. CHEST: Thoracic aorta: No significant dilation. No dissection. Mild atherosclerotic calcification. Lung parenchyma and airways: Somewhat nodular and peribronchial vascular areas of consolidation in th e bilateral lower lobes. A more focal lobulated nodular opacities present in the mid right lower lobe (image 59/136). Small amounts of airway debris in the distal trachea and bilateral lower lobe bronch i. Calcified right middle lobe granuloma. Thoracic inlet, axillae and chest wall: No thyroid or soft tissue mass. No axillary lymphadenopathy. Mediastinum: Enlarged AP window lymph nodes. Heart and pericardium: Normal heart size. No pericardial effusion. Coronary artery calcifications: Moderate. Pleura: No effusion or mass. Thoracic bones: No acute osseous finding in the chest. ABDOMEN/PELVIS: Liver: Enlarged. Biliary/Gallbladder: Gallbladder is absent. No bile duct dilation. Pancreas: No mass or duct dilation. Spleen: Normal. Adrenals:No mass. Kidneys: Status post right nephrectomy. Redemonstration of simple renal cysts, better seen in the cristal or study. No left hydronephrosis. GI tract: The rectum is dilated to 6.1 cm by formed stool. No small bowel dilation. Appendix not conf idently visualized. Diverticulosis without diverticulitis. Mesentery/Peritoneum: No ascites, mass, or free air. Retroperitoneum: No mass Atherosclerotic calcifications of intra-abdominal arterial vessels. Pelvis: The urinary bladder displays wall thickening and inflammatory change and is decompressed by F oley catheter. Soft Tissues: Soft tissues and body wall unremarkable. Abdominopelvic bones: No acute osseous finding in the abdomen/pelvis. Uncomplicated appearing right femoral fixation hardware. IMPRESSION: Likely bilateral lower lobe bronchopneumonia, possibly with a component of aspiration given the prese nce of airway debris. Recommend low-dose noncontrast CT of the chest after the resolution of acute sy mptoms to exclude persistent pulmonary nodules. Mediastinal lymphadenopathy. Hepatomegaly. Possible cystitis. Possible fecal impaction. Reviewed, dictated and finalized at location K. CTOR OF BUSINESS DEVELOPMENT IMPRESSION: Likely bilateral lower lobe bronchopneumonia, possibly with a component of aspi ration given the presence of airway debris. Recommend low-dose noncontrast CT o f the chest after the resolution of acute symptoms to exclude persistent pulmon montse nodules. Mediastinal lymphadenopathy. Hepatomegaly. Possible cystitis. Possible fecal impaction.
--- NOTE | ~2024-12-13 | XR_ITS ---
EXAMINATION: XR abdomen obstructive series DATE: 12/16/2024 13:41 INDICATION: Abdominal pain and distention. TECHNIQUE: Upright and supine views of the abdomen on 3 radiographs were obtained. COMPARISON: CT abdomen and pelvis 12/13/2024 FINDINGS: There are no dilated loops of bowel. There is a paucity of stool in the colon. No free intr aperitoneal gas. There are surgical clips in the abdomen. There is internal fixation of right femur. IMPRESSION: 1. Normal bowel gas pattern. Reviewed, dictated and finalized at location A. PUBLISHER
--- NOTE | 2024-12-13 17:08 | ECG_ITS ---
Test Date: 2024-12-13 17:47:10 Measurements Intervals [place] Rate: 75 P: 0 WV: 0 QRS: -60 QRSD: 116 T: -24 QT: 425 QTc: 476 Interpretive Statements ATRIAL FLUTTER/TACHYCARDIA VENTRICULAR PREMATURE COMPLEX LOW QRS VOLTAGE IN PRECORDIAL LEADS POSSIBLE RIGHT VENTRICULAR CONDUCTION DELAY CONSIDER ANTERIOR INFARCT, AGE INDETERMINATE INFERIOR INFARCT, AGE INDETERMINATE BASELINE ARTIFACT- I, II, III, AVR, AVL, AVF, V1-V6 ABNORMAL ECG Compared to ECG 11/15/2024 14:25:25 NO SIGNIFICANT CHANGE Electronically Signed On 12-13-2024 19:05:24 DISC JOCKEY by Arnulfo Eason D.O.
--- NOTE | 2024-12-13 17:09 | ED_ITS ---
HPI - Weakness General Chief complaint: Weakness Stated complaint: Covid+, weakness Time Seen by Provider: 12/13/24 17:03 Source: patient Mode of arrival: EMS Limitations: no limitations History of Present Illness HPI Narrative: In the this is an 84-year-old male with PMH of Parkinson disease, adynamic ileus, HTN, CLL, ESBL urinary infection, COPD, MARVIN she, cognitive impairment who presents to the ED via EMS from a [facility] for chief complaint of weakness and general fatigue. He is reported to be COVID positive. Patient reports back aches denies injury. He arrives with indwelling Duron catheter present. retirement reported patient was decreasingly responsive. The patient states he is feeling very generally weak and fatigued. Denies focal weakness or numbness. Denies chest pain. Related Data Home Medications ?Medication ?Instructions ?Recorded ?Confirmed ?Last Taken ?Type alendronate 70 mg tablet 70 mg PO WEEKLY 06/03/23 11/15/24 11/17/23 History bisacodyl 10 mg rectal suppository 10 mg RECTAL DAILY PRN Constipation 06/03/23 11/15/24 11/17/23 History (Dulcolax (bisacodyl)) carvedilol 3.125 mg tablet 3.125 mg PO BID 11/22/23 11/15/24 Unknown History dextran 70-hypromellose 0.1 %-0.3 1 drp EACH EYE Q12H PRN Dry Eyes 11/22/23 11/15/24 Unknown History % eye drops (Artificial Tears (dextran 70-hypromellose)) furosemide 20 mg tablet 40 mg PO DAILY 11/22/23 11/15/24 Unknown History gabapentin 300 mg capsule 300 mg PO BID 11/22/23 11/15/24 Unknown History magnesium hydroxide 400 mg/5 mL 30 ml PO HS PRN Constipation 11/22/23 11/15/24 Unknown History oral suspension (Milk of Magnesia) omeprazole 20 mg capsule,delayed 20 mg PO DAILY 11/22/23 11/15/24 Unknown History release oxybutynin chloride 10 mg 10 mg PO DAILY 11/22/23 11/15/24 Unknown History tablet,extended release 24 hr atorvastatin 80 mg tablet 80 mg PO HS 12/04/23 11/15/24 Unknown History sennosides 8.6 mg tablet (Senokot) 8.6 mg PO BID 12/04/23 11/15/24 Unknown History hydrocodone 5 mg-acetaminophen 325 1 tablet PO Q8H PRN Pain (Scale 02/13/24 11/15/24 Unknown History mg tablet Score 4-6) ondansetron 8 mg disintegrating 8 mg PO Q8H 04/13/24 11/15/24 Unknown History tablet allopurinol 100 mg tablet 100 mg PO DAILY 11/15/24 11/15/24 Unknown History amlodipine 5 mg tablet 2.5 mg PO QAM 11/15/24 11/15/24 Unknown History ascorbic acid (vitamin C) 500 mg 500 mg PO BID 11/15/24 11/15/24 Unknown History capsule calcium 600 mg (as 1 tablet PO BID 11/15/24 11/15/24 Unknown History carbonate)-vitamin D3 10 mcg (400 unit) tablet (Calcium 600 + D(3)) cholecalciferol (vitamin D3) 125 5,000 unit PO DAILY 11/15/24 11/15/24 Unknown History mcg (5,000 unit) tablet (Vitamin D3) ferrous sulfate 325 mg (65 mg 325 mg PO BID 11/15/24 11/15/24 Unknown History iron) tablet,delayed release folic acid 1 mg tablet 1 mg PO DAILY 11/15/24 11/15/24 Unknown History loratadine 10 mg tablet (Allergy 10 mg PO DAILY 11/15/24 11/15/24 Unknown History Relief (loratadine)) methotrexate sodium 2.5 mg tablet 2.5 mg PO WEEKLY 11/15/24 11/15/24 Unknown History potassium chloride 10 mEq 10 meq PO DAILY 11/15/24 11/15/24 Unknown History tablet,extended release spironolactone 25 mg tablet 25 mg PO DAILY 11/15/24 11/15/24 Unknown History Allergies Allergy/AdvReac Type Severity Reaction Status Date / Time neomycin Allergy Unknown rash Verified 11/15/24 14:26 Sulfa (Sulfonamide Allergy Unknown Rash Verified 11/15/24 14:26 Antibiotics) castor oil AdvReac Intermediate Nausea and Verified 11/15/24 14:26 Vomiting erythromycin base AdvReac Intermediate SHAKING, Verified 11/15/24 14:26 HEADACHE Review of Systems 2 Review of Systems: All systems as dictated in [facility] Past Medical History Medical History Depression with anxiety History of infection due to ESBL Escherichia coli Urinary retention due to benign prostatic hyperplasia Venous stasis dermatitis of both lower extremities Lung nodule Collagenous colitis Chronic indwelling Duron catheter Diastolic dysfunction Echo 01/2022: EF 60 65% Chronic obstructive pulmonary disease Hypothyroidism Benign prostatic hyperplasia Arthritis Degenerative disc disease Renal cell carcinoma of right kidney Status post right nephrectomy. Gastroesophageal reflux disease Silicosis Obstructive sleep apnea Chronic anemia Chronic kidney disease, stage 3 Baseline creatinine ranges between 1.30 and 1.40. Degenerative arthritis of knee, bilateral Chronic lymphocytic leukemia Cognitive impairment Essential hypertension Parkinson disease Primary osteoarthritis of both knees Surgical History Surgical History Status post open reduction with internal fixation of fracture Right femoral neck fracture History of arthroscopy of right knee History of cholecystectomy History of appendectomy History of repair of left rotator cuff History of cataract extraction History of right nephrectomy (2003) History of back surgery Family History Family History Father Family history of liver disease Family history of lung cancer Patient's father is Family history of primary malignant neoplasm of liver Mother Family history of heart disease in male family member before age 55 Patient's mother is Family history of coronary artery disease Acute myocardial infarction Sibling Family history of lung cancer Family history of malignant neoplasm of bone Patient's sister is Patient's brother is Malignant neoplasm of prostate Grandparent Family history of arthritis Other Family history of malignant neoplasm of kidney Social History Social History Social History: He is . The patient resides at [facility]. His son lives in the local area. The patient is retired from [employer]. No alcohol, tobacco, or illicit substance. He uses wheelchair for mobility and can stand to pivot. 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 HEAD: Normocephalic, atraumatic. EYES: PERRLA and EOMI. ENT: Nares clear, no rhinorrhea or epistaxis. Mucous membranes moist. Oropharynx without tonsillar hypertrophy exudate or other lesions. NECK: Supple. No adenopathy or masses. CHEST: Mildly tachypneic on initial exam. Coarse breath sounds heard bilaterally. Saturating 99% room air. HEART: Regular rate and rhythm. No murmur heard. Normal peripheral pulses. ABDOMEN: Mild lower abdominal tenderness. Soft, nondistended, normal active bowel sounds. MSK: Normal range of motion. No edema. SKIN: Warm, dry, no rash. NEURO: Alert and oriented x2-3. No focal deficits. PSYCH: Normal mood and affect. Course Course Emergency Course: Patient continues to be markedly tachypneic. ABG ordered and antibiotics started for pneumonia seen on CT. Attempted to call family member, POA which went to voicemail. [id number]: Have attempted to call patient's family, POA x3 and left voicemail. Still waiting for call back to discuss patient's goals of care. Reevaluation(s) Reevaluation #1: Patient is now resting much more comfortably after successful soapsuds enema and dose of Ativan. Date: 12/14/24 Time: 00:17 Vital Signs Vital signs: Vital Signs Temperature 97.7 F 12/13/24 16:46 Pulse Rate 75 12/13/24 16:46 Respiratory Rate 16 12/13/24 16:46 Blood Pressure 117/60 12/13/24 16:46 Pulse Oximetry 97 12/13/24 16:46 Temperature 97.7 F 12/13/24 16:46 Pulse Rate 93 12/14/24 00:00 Respiratory Rate 26 H 12/14/24 00:15 Blood Pressure 136/114 H 12/13/24 23:31 Pulse Oximetry 100 12/14/24 00:15 MDM - Weakness MDM Narrative Medical decision making narrative: This is a 84-year-old male who presents [facility] the ED from [facility] today for generalized weakness and presumed viral illness. Vitals initially are normal. Viral swabs are positive for influenza. Lab work shows elevated white count of 13. BUN elevated on CMP and patient is hyponatremic at 1:29 a.m.. Lactic acid elevated to 3.1. Blood cultures pending. During his ED course, he started to become more more tachypneic. He does appear very anxious. His main complaints are not a respiratory nature but more of constipation. His ABG shows respiratory alkalosis but saturating at 95% on room air. CT chest abdomen pelvis: IMPRESSION: Likely bilateral lower lobe bronchopneumonia, possibly with a component of aspiration given the presence of airway debris. Recommend low-dose noncontrast CT of the chest after the resolution of acute symptoms to exclude persistent pulmonary nodules. Mediastinal lymphadenopathy. Hepatomegaly. Possible cystitis. Possible fecal impaction According to [facility] paperwork, patient is DNR and comfort measures only. He has complained several times about being unable to pass stools and we had no success with a digital rectal disimpaction. Eventually did have success with soapsuds enema. Is also much more relaxed after pain control and Ativan. He was given sepsis bolus fluids as well as started on a cefepime, azithromycin and Flagyl. Was able speak with family member, granddaughter who is electing to rescind the patient's DNR status at this time. I explained to her that his condition is very serious and that he likely has severe sepsis with pneumonia. I discussed my doubts about his clinical condition regarding his tachypnea and work of breathing. Advised that he may decompensate during this hospital stay. She understands and would like to get here to see the patient, talk to her family members and then reconvene on his DNR, DNI, comfort measures only status. Discussed the case with hospitalist, Dr. Levine recommends admission to Med surg. Patient admitted in stable but guarded condition. Lab Data 12/13/24 17:55 12/13/24 17:55 Labs: Lab Results 12/13/24 12/13/24 12/13/24 Range/Units : 17:55 19:43 WBC 12.1 H (4.5-10.0) K/mm3 RBC 3.79 L (4.6-6.20) M/mm3 Hgb 10.6 L (14.0-18.0) g/dL Hct 32.7 L (42.0-52.0) % MCV 86.3 (80-100) fl MCH 28.0 (26-34) pg MCHC 32.4 (32-36) g/dl RDW 18.4 H (11.5-14.5) % Plt Count 203 (150-375) k/mm3 MPV 10.6 H (7.4-10.4) fl Immature Gran % (Auto) 0.7 H (0-0.5) % Neut % (Auto) 43.6 L (45.5-73.1) % Lymph % (Auto) 51.3 H (18.3-44.2) % Blaine % (Auto) 3.4 (2.6-8.5) % Eos % (Auto) 0.4 (0-4.4) % Baso % (Auto) 0.6 (0.2-1.2) % Lymph # (Auto) 6.20 H (0.9-3.2) K/mm3 Blaine # (Auto) 0.4 (0.1-0.6) K/mm3 Eos # (Auto) 0.1 (0-0.3) K/mm3 Baso # (Auto) 0.1 (0.0-0.1) K/mm3 Abs Immat Gran (auto) 0.09 H (0.00-0.031) K/mm3 Absolute Neuts (auto) 5.3 (1.3-6.7) K/mm3 Absolute Nucleated RBC 0.000 (0.0-0.012) K/mm3 Nucleated RBC % 0.0 (0.0-0.2) % Platelet Estimate Adequate (Adequate) % Immature Plt Fraction 4.4 (0.9-11.2) % Anisocytosis 2+ Schistocytes None seen PT 14.3 (11.1-14.7) Seconds INR 1.1 APTT 27.6 (22.3-36.8) Seconds Sodium 129 L (137-145) mmol/L Potassium 3.9 (3.4-5.0) mmol/L Chloride 92 L (98-107) mmol/L Carbon Dioxide 24 (22-30) mmol/L Anion Gap 13 H (4-12) mmol/L BUN 28 H D (9-20) mg/dL Creatinine 1.09 (0.7-1.3) mg/dL Estim Creat Clear Calc 44 ml/min Estimated GFR > 60 (59 - ) Glucose 111 H (65-110) mg/dL Lactic Acid (0.7-2.0) mmol/L Calcium 9.1 (8.4-10.2) mg/dL Magnesium 1.8 (1.6-2.3) mg/dL Total Bilirubin 1.0 (0.2-1.3) mg/dL AST 25 (17-59) U/L ALT 9 (6-50) U/L Alkaline Phosphatase 85 (38-126) U/L NT-Pro-B Natriuret Pep 783 H (19.9-100) pg/mL Total Protein 7.0 (6.3-8.2) g/dL Albumin 3.6 (3.5-5.1) g/dL Lipase 287 (23-300) U/L Urine Color Yellow (Yellow) Urine Appearance Cloudy H (Clear) Urine pH >=9.0 H (5.0-9.0) Ur Specific Clyde 1.013 (1.001-1.035) Urine Protein 2+ H (Negative) mg/dL Urine Glucose (UA) Negative (Negative) mg/dL Urine Ketones Negative (Negative) mg/dL Ur Blood (Man) Negative (Negative) Urine Nitrate Positive H (Negative) Urine Bilirubin Negative (Negative) Urine Urobilinogen 0.2 (<2.0) mg/dL Leukocyte Esterase Rfl 3+ H (Negative) PARUL/UL Urine RBC 0-2 (0-2) /hpf Urine WBC 51-100 H (0-3) /hpf Ur Squamous Epith Cells None seen (Few) /hpf Urine Bacteria 4+ H /hpf Urine Casts 0-2 Influenza A (RT-PCR) Positive A (Negative) Influenza B (RT-PCR) Negative (Negative) RSV (RT-PCR) Negative (Negative) SARS-CoV-2 RNA (RT-PCR) Negative (Negative) 12/13/24 Range/Units 20:47 WBC (4.5-10.0) K/mm3 RBC (4.6-6.20) M/mm3 Hgb (14.0-18.0) g/dL Hct (42.0-52.0) % MCV (80-100) fl MCH (26-34) pg MCHC (32-36) g/dl RDW (11.5-14.5) % Plt Count (150-375) k/mm3 MPV (7.4-10.4) fl Immature Gran % (Auto) (0-0.5) % Neut % (Auto) (45.5-73.1) % Lymph % (Auto) (18.3-44.2) % Blaine % (Auto) (2.6-8.5) % Eos % (Auto) (0-4.4) % Baso % (Auto) (0.2-1.2) % Lymph # (Auto) (0.9-3.2) K/mm3 Blaine # (Auto) (0.1-0.6) K/mm3 Eos # (Auto) (0-0.3) K/mm3 Baso # (Auto) (0.0-0.1) K/mm3 Abs Immat Gran (auto) (0.00-0.031) K/mm3 Absolute Neuts (auto) (1.3-6.7) K/mm3 Absolute Nucleated RBC (0.0-0.012) K/mm3 Nucleated RBC % (0.0-0.2) % Platelet Estimate (Adequate) % Immature Plt Fraction (0.9-11.2) % Anisocytosis Schistocytes PT (11.1-14.7) Seconds INR APTT (22.3-36.8) Seconds Sodium (137-145) mmol/L Potassium (3.4-5.0) mmol/L Chloride (98-107) mmol/L Carbon Dioxide (22-30) mmol/L Anion Gap (4-12) mmol/L BUN (9-20) mg/dL Creatinine (0.7-1.3) mg/dL Estim Creat Clear Calc ml/min Estimated GFR (59 - ) Glucose (65-110) mg/dL Lactic Acid 3.1 H (0.7-2.0) mmol/L Calcium (8.4-10.2) mg/dL Magnesium (1.6-2.3) mg/dL Total Bilirubin (0.2-1.3) mg/dL AST (17-59) U/L ALT (6-50) U/L Alkaline Phosphatase (38-126) U/L NT-Pro-B Natriuret Pep (19.9-100) pg/mL Total Protein (6.3-8.2) g/dL Albumin (3.5-5.1) g/dL Lipase (23-300) U/L Urine Color (Yellow) Urine Appearance (Clear) Urine pH (5.0-9.0) Ur Specific Clyde (1.001-1.035) Urine Protein (Negative) mg/dL Urine Glucose (UA) (Negative) mg/dL Urine Ketones (Negative) mg/dL Ur Blood (Man) (Negative) Urine Nitrate (Negative) Urine Bilirubin (Negative) Urine Urobilinogen (<2.0) mg/dL Leukocyte Esterase Rfl (Negative) PARUL/UL Urine RBC (0-2) /hpf Urine WBC (0-3) /hpf Ur Squamous Epith Cells (Few) /hpf Urine Bacteria /hpf Urine Casts Influenza A (RT-PCR) (Negative) Influenza B (RT-PCR) (Negative) RSV (RT-PCR) (Negative) SARS-CoV-2 RNA (RT-PCR) (Negative) ABG Data ABG results: 12/13/24 20:51 Puncture Site Right brachial ABG pH 7.540 H* ABG pCO2 20.0 L* ABG pO2 61.0 L ABG PO2/FiO2 Ratio 2.90 ABG HCO3 16.7 L ABG O2 Saturation 94.5 L ABG O2 Content 13.8 L ABG Base Excess -4.1 A-a Gradient 64.8 Oxyhemoglobin 91.7 Total Hemoglobin 10.7 L O2 Delivery Device Room air O2 Liters/Min Not Reportable FiO2 21 Discharge Plan Discharge Clinical Impression: Pneumonia, Severe sepsis Patient Disposition: Still a Patient Condition: Serious Patient Language: Eritrean Prescriptions: No Action alendronate 70 mg tablet 70 mg PO WEEKLY Rx Instructions: every friday bisacodyl [Dulcolax (bisacodyl)] 10 mg suppository 10 mg RECTAL DAILY PRN (Reason: Constipation) ondansetron 8 mg tablet,disintegrating 8 mg PO Q8H carbidopa-levodopa [Sinemet] 25-100 mg tablet 3 tablet PO TID Qty: 240 6RF Rx Instructions: May increase to 3 tablets 4 times a day as necessary atorvastatin 80 mg tablet 80 mg PO HS sennosides [Senokot] 8.6 mg tablet 8.6 mg PO BID Rx Instructions: May hold for for loose stool lidocaine [Lidoderm] 5 % adhesive patch,medicated 1 patch topical DAILY Qty: 15 0RF Rx Instructions: leave on most painful area for up to 12 hrs carvedilol 3.125 mg Tablet 3.125 mg PO BID Rx Instructions: must administer with a meal/food Artificial Tears([id number]) 0.1-0.3 % Drops 1 drp EACH EYE Q12H PRN (Reason: Dry Eyes) oxybutynin chloride 10 mg Tablet Extended Release 24hr 10 mg PO DAILY magnesium hydroxide [Milk of Magnesia] 400 mg/5 mL Suspension 30 ml PO HS PRN (Reason: Constipation) Rx Instructions: if no BM in three days gabapentin 300 mg Capsule 300 mg PO BID omeprazole 20 mg Capsule,Delayed Release(Dr/Ec) 20 mg PO DAILY furosemide 20 mg Tablet 40 mg PO DAILY hydrocodone-acetaminophen 5-325 mg tablet 1 tablet PO Q8H PRN (Reason: Pain (Scale Score 4-6)) allopurinol 100 mg tablet 100 mg PO DAILY methotrexate sodium 2.5 mg tablet 2.5 mg PO WEEKLY Rx Instructions: potassium chloride 10 mEq tablet extended release 10 meq PO DAILY spironolactone 25 mg tablet 25 mg PO DAILY amlodipine 5 mg tablet 2.5 mg PO QAM ferrous sulfate 325 mg (65 mg iron) Tablet,Delayed Release (Dr/Ec) 325 mg PO BID calcium carbonate-vitamin D3 [Calcium 600 + D(3)] 600 mg-10 mcg (400 unit) tablet 1 tablet PO BID folic acid 1 mg tablet 1 mg PO DAILY cholecalciferol (vitamin D3) [Vitamin D3] 125 mcg (5,000 unit) tablet 5,000 unit PO DAILY ascorbic acid (vitamin C) 500 mg capsule 500 mg PO BID loratadine [Allergy Relief (loratadine)] 10 mg tablet 10 mg PO DAILY polyethylene glycol 3350 [Miralax] 17 gram Powder In Packet 17 g PO QAM Qty: 10 0RF levothyroxine 100 mcg tablet 100 mcg PO DAILY Qty: 90 1RF tamsulosin 0.4 mg capsule 0.8 mg PO DAILY Qty: 180 1RF finasteride 5 mg tablet 5 mg PO QHS Qty: 90 1RF duloxetine 60 mg capsule,delayed release(DR/EC) 60 mg PO DAILY Qty: 30 1RF albuterol sulfate 90 mcg/actuation HFA aerosol inhaler 1 puff INHALATION Q4H PRN (Reason: shortness of breath or wheezing) Qty: 8.5 1RF Follow-up/Referrals: Raoul Forbes MD [Primary Care Provider] -
[2024-12-13 18:03] LABS: Basophils Absolute Auto 0.1 K/mm3 (0.0-0.1); Basophils Percent Auto 0.6 % (0.2-1.2); Eosinophils Absolute Auto 0.1 K/mm3 (0-0.3); Eosinophils Percent Auto 0.4 % (0-4.4); Hematocrit 32.7 % (42.0-52.0); Hemoglobin 10.6 g/dL (14.0-18.0); Immature Granulocyte Absolute 0.09 K/mm3 (0.00-0.031); Immature Granulocyte Percent A 0.7 % (0-0.5); Immature Platelet Fraction Pct 4.4 % (0.9-11.2); Lymphocytes Percent Auto 51.3 % (18.3-44.2); Mean Corpuscular HGB Conc 32.4 g/dl (32-36); Mean Corpuscular Volume 86.3 fl (80-100); Mean Platelet Volume 10.6 fl (7.4-10.4); Monocytes Absolute Auto 0.4 K/mm3 (0.1-0.6); Monocytes Percent Auto 3.4 % (2.6-8.5); Neutrophils Absolute Auto 5.3 K/mm3 (1.3-6.7); Neutrophils Percent Auto 43.6 % (45.5-73.1); Platelet Count Result 203 k/mm3 (150-375); Red Blood Count 3.79 M/mm3 (4.6-6.20); Red Cell Distribution Width 18.4 % (11.5-14.5); White Blood Count 12.1 K/mm3 (4.5-10.0)
[2024-12-13 18:09] LABS: Influenza A QL RT-PCR Positive (Negative); Influenza B QL RT-PCR Negative (Negative); RSV RNA, RT-PCR Negative (Negative); SARS-CoV-2 RNA PCR Negative (Negative)
[2024-12-13 18:11] LABS: Alanine Aminotransferase 9 U/L (6-50); Albumin Level 3.6 g/dL (3.5-5.1); Alkaline Phosphatase 85 U/L (38-126); Anion Gap 13 mmol/L (4-12); Aspartate Amino Transferase 25 U/L (17-59); Blood Urea Nitrogen 28 mg/dL (9-20); Calcium 9.1 mg/dL (8.4-10.2); Carbon Dioxide 24 mmol/L (22-30); Chloride 92 mmol/L (98-107); Estimated CRCL calculation 44 ml/min; Estimated Glomerular Filt Rate > 60; Glucose 111 mg/dL (65-110); Lipase 287 U/L (23-300); Magnesium 1.8 mg/dL (1.6-2.3); Potassium 3.9 mmol/L (3.4-5.0); Sodium 129 mmol/L (137-145)
[2024-12-13 18:20] LABS: NT Pro B Type Natriuretic Pept 783 pg/mL (19.9-100)
[2024-12-13 18:30] LABS: INR 1.1; Partial Thromboplastin Time 27.6 Seconds (22.3-36.8); Prothrombin Time 14.3 Seconds (11.1-14.7)
--- OUTSIDE RECORDS SUMMARY | 2024-12-13 18:30 | XMS_ITS | Clinical Summary ---
Author Organization [facility] Address [address] [place] [id number] Care Team Providers Care Gate Agent Name Role Phone Tania Salas MD Primary Care Provider [phone] Allergies Active Allergy Reactions Criticality Noted Date Comments Codeine Unknown 03/26/2023 Erythromycin Unknown 03/26/2023 Neomycin Unknown 03/26/2023 Medications ondansetron (ZOFRAN-ODT) 4 MG disintegrating tablet Take 1 tablet (4 mg total) by mouth every 8 (eight) hours as needed for Nausea. 20 tablet Active Social History Tobacco Use Types Packs/Day Years Used Date Smoking Tobacco: Never Smokeless Tobacco: Never Tobacco Cessation:Counseling Given: Not Answered Sex and Gender Information Value Date Recorded Sex Assigned at Not on file Legal Sex Male 4:56 PM CDT Gender Identity Not on file Sexual Orientation Not on file Last Filed Vital Signs Vital Sign Reading Time Taken Comments Blood Pressure 100/63 03/27/2023 2:01 AM CDT Pulse 89 03/27/2023 2:01 AM CDT Temperature 36.6 C (97.8 F) 03/26/2023 10:22 PM CDT Respiratory Rate 21 03/27/2023 2:01 AM CDT Oxygen Saturation 92% 03/27/2023 2:01 AM CDT Inhaled Oxygen Concentration - - Weight 73.3 kg (161 lb 9.6 oz) 03/26/2023 10:22 PM CDT Height 172.7 cm (5' 8) 03/26/2023 10:22 PM CDT Body Mass Index 24.57 03/26/2023 10:22 PM CDT Plan of Treatment Health Maintenance Due Date Last Done Comments PHQ-2 (Physician [place]) 1952 DTaP, Tdap and Td Vaccines (1 - Tdap) 02/10/1959 Annual Medicare Wellness Visit 02/10/2005 Pneumococcal Vaccine: 65+ Years (1 of 1 - PCV) 02/10/2005 RSV Immunization or 60+ Years (1 - 1-dose 75+ series) 02/10/2015 COVID-19 Vaccine ( - season) 2024 10/17/2021, 01/20/2021, 12/28/2020 Influenza Adult (#1) 2024 07/28/2020, 06/20/2020, 07/27/2019, Additional history exists PHQ-2 (Physician [place]) 10/27/2024 Zoster Vaccines Completed 07/24/2021, 09/15/2020 Meningococcal B Vaccine Aged Out No l onger eligible based on patient's age to complete this topic Meningococcal Vaccine Aged Out No whitney macrina eligible based on patient's age to complete this topic RSV Immunizations Under 20 Months Aged Out No longer eligible based on patient's age to complete this topic Insurance [address] [id number] MEDICAID MED REPLACE [employer] Care Teams Gate Agent Relationship Specialty Start Date End [place] [address] PCP - General INTERNAL MEDICINE 03/26/23
--- OUTSIDE RECORDS SUMMARY | 2024-12-13 18:30 | XMS_ITS ---
Author Organization [facility] Address Unknown Allergies, Adverse Reactions, Alerts Substance Reaction Status Noted Date Resolved Date [place] Oil active 09/24/2023 Azithromycin active 09/24/2023 Medications Medication Dose Frequency Directions Start Date End Sergio e Citroma Solution 1.745 GM/30ML 296 mL Give 296 ml by mouth as needed for constipation In AM if no results after enema. If no results within 1 hour of completion of bowel protocol, contact MD immediately for further orders. 09/24/2023 Benzonatate Capsule 200 MG 1 {Capsule} 8 h Give 1 capsule by mouth three times a day for cough 09/25/2023 Saccharomyces boulardii Capsule 250 MG 1 {Capsule} 12 h Give 1 capsule by mouth two times a day for probiotic 09/25/2023 Budesonide Oral Capsule Delayed Release Particles 3 MG 1 {Capsule} 24 h Give 1 capsule by mouth one time a day for Respiratory 09/25/2023 Alendronate Sodium Tablet 70 MG 1 {tbl} 24 h Give 1 tablet by mouth one time a day every Fri for supplement 09/30/2023 Albuterol Sulfate HFA Inhalation Aerosol Solution 108 (90 Base) MCG/ACT 1 1 puff inhale orally every 4 hours as needed for SOB/Wheezing 09/24/2023 Fleet Enema 1 Insert 1 applic ation rectally as needed for for constipation If no results 1 day after suppository. 09/24/2023 Milk of Magnesia Suspension 400 MG/5ML 30 mL Give 30 ml by mout h as needed for Constipation at bedtime if not BM in 3 days 09/24/2023 Bisacodyl Suppository 10 MG 1 Insert 1 suppository rectally as needed for for constipation daily if no results for MOM 09/24/2023 Levothyroxine Sodium Tablet 100 MCG 1 {tbl} 24 h Give 1 tablet by mouth one time a day for low thyroid hormone 09/25/2023 Artificial Tears Ophthalmic Solution 0.1-0.3 % 1 [drp] Instill 1 drop in both eyes every 12 hours as needed for dry eyes 09/24/2023 AmLODIPine Besylate Tablet 5 MG 1 {tbl} 24 h Give 1 tablet by mouth one time a day for HTN 09/25/2023 Aspirin Low Dose Oral Tablet Chewable 81 MG 1 {tbl} 24 h Give 1 tablet by mouth one time a day for ASA 09/25/2023 Furosemide Tablet 20 MG 1 {tbl} 24 h Give 1 tablet by mouth one time a day for Edema 09/25/2023 Senna Plus Oral Tablet 8.6-50 MG 1 {tbl} 12 h Give 1 tablet by mouth two times a day for Constipation 09/25/2023 Carvedilol Tablet 3.125 MG 1 {tbl} 12 h Give 1 tablet by mouth two times a day for Hypertension 09/25/2023 Carbidopa-Levodopa Oral Tablet 25-250 MG 1 {tbl} 8 h Give 1 tablet by mouth three times a day for Parkinson's 09/25/2023 DULoxetine HCl Capsule Delayed Release Particles 60 MG 1 {Capsule} 24 h Give 1 capsule by mouth one time a day for depression 09/25/2023 Gabapentin Capsule 300 MG 1 {Capsule} 8 h Give 1 capsule by mouth three times a day for Neuropathy 09/25/2023 Atorvastatin Calcium Oral Tablet 80 MG 1 {tbl} Give 1 tablet by mouth in the evening for HLD 09/25/2023 Finasteride Oral Tablet 5 MG 1 {tbl} 24 h Give 1 tablet by mouth one time a day for 09/25/2023 Tamsulosin HCl Capsule 0.8 mg 24 h Give 0.8 mg by mouth one time a day for benign prostatic hyperplasia 09/25/2023 HYDROcodone-Acetaminop hen Oral Tablet 5-325 MG 1 {tbl} Give 1 tablet by mouth every 8 hours as needed for Pain 09/24/2023 Sennosides Tablet 8.6 MG 2 {tbl} 12 h Give 2 tablet by mouth two times a day for constipation 09/25/2023 Omeprazole 20 MG Capsule delayed release 1 {Capsule} 24 h Give 1 capsule by mouth one time a day for acid reflux 09/30/2023 oxyBUTYnin Chloride ER 10 MG Tablet extended release 24 hr 1 {tbl} 24 h Give 1 tablet by mouth one time a day for prostate do not crush 09/30/2023 Imodium A-D Oral Tablet 2 MG 1 {tbl} Give 1 tablet by mouth every 2 hours as needed for Diarrhea 4mg with first loose. 2 mg with each loose stool thereafter do not exceed 14mg in 24 hours 09/26/2023 Melatonin Tablet 3 MG 3 mg Give 3 mg by mouth every 24 hours as needed for Sleep 09/29/2023 Medications Administered Medication Dose Frequency Status Start Date End Date Citroma Solution 1.745 GM/30ML 296 mL 09/24/2023 Benzonatate Capsule 200 MG 1 {Capsule} 8 h 1 12/13/2022 Saccharomyces boulardii Caps ule 250 MG 1 {Capsule} 12 h 10/12/2023 Budesonide Oral Capsule Delaney yed Release Particles 3 MG 1 {Capsule} 24 h 10/11/2023 Alendronate Sodium Tablet 70 MG 1 {tbl} 24 h 09/30/2023 Albuterol Sulfate HFA Inhala tion Aerosol Solution 108 (90 Base) MCG/ACT 1 09/24/2023 Fleet Enema 1 09/24/2023 Milk of Magnesia Suspension 400 MG/5ML 30 mL 09/24/2023 Bisacodyl Suppository 10 MG 1 Levothyroxine Sodium Tablet 100 MCG 1 {tbl} 24 h 10/11/2023 Artificial Tears Ophthalmic Solution 0.1-0.3 % 1 [drp] 09/24/2023 AmLODIPine Besylate Tablet 5 MG 1 {tbl} 24 h 10/11/2023 Aspirin Low Dose Oral Tablet Chewable 81 MG 1 {tbl} 24 h 10/11/2023 Furosemide Tablet 20 MG 1 {tbl} 24 h 2022 Senna Plus Oral Tablet 8.6-50 MG 1 {tbl} 12 h 10/12/2023 Carvedilol Tablet 3.125 MG 1 {tbl} 12 h Carbidopa-Levodopa Oral Tabl et 25-250 MG 1 {tbl} 8 h 10/12/2023 DULoxetine HCl Capsule Delay ed Release Particles 60 MG 1 {Capsule} 24 h 10/11/2023 Gabapentin Capsule 300 MG 1 {Capsule} 8 h Atorvastatin Calcium Oral Ta blet 80 MG 1 {tbl} 10/12/2023 Finasteride Oral Tablet 5 MG 1 {tbl} 24 h 1 12/12/2022 Tamsulosin HCl Capsule 0.8 mg 24 h 023 HYDROcodone-Acetaminophen Or al Tablet 5-325 MG 1 {tbl} 10/11/2023 Sennosides Tablet 8.6 MG 2 {tbl} 12 h 10/12 Omeprazole 20 MG Capsule del ayed release 1 {Capsule} 24 h 10/11/2023 oxyBUTYnin Chloride ER 10 MG Tablet extended release 24 hr 1 {tbl} 24 h 10/11/2023 Imodium A-D Oral Tablet 2 MG 1 {tbl} 1 11/29/2022 Melatonin Tablet 3 MG 3 mg 09/29/20 23 Problems Problem Status Start Date End Date PARKINSON'S DISEASE WITH DYS KINESIA, 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 - ICD-10-CM) ACTIVE 09/24/2023 ACUTE ON CHRONIC DIASTOLIC ( CONGESTIVE) HEART FAILURE (I50.33 - ICD-10-CM) ACTIVE 09/24/2023 OTHER SPECIFIED ARTHRITIS, M ULTIPLE SITES (M13.89 - ICD-10-CM) ACTIVE 09/24/2023 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) ACTIVE 09/24/2023 ACUTE LEUKEMIA OF UNSPECIFIE D CELL TYPE, IN REMISSION (C95.01 - ICD-10-CM) ACTIVE 09/24/2023 CHRONIC KIDNEY DISEASE, UNSPECIFIED (N18.9 - ICD-10-CM ) ACTIVE 09/24/2023 PERSISTENT MOOD [AFFECTIVE] DISORDER, UNSPECIFIED (F34.9 - ICD-10-CM) ACTIVE 09/24/2023 URINARY TRACT INFECTION, SIT E NOT SPECIFIED (N39.0 - ICD-10-CM) ACTIVE 09/24/2023 CARDIOMYOPATHY, UNSPECIFIED (I42.9 - ICD-10-CM) ACTIVE 09/24/2023 HYPOTHYROIDISM, UNSPECIFIED (E03.9 - ICD-10-CM) ACTIVE 09/24/2023 ANEMIA, UNSPECIFIED (D64.9 - ICD-10-CM) ACTIVE 1 11/24/2022 BENIGN PROSTATIC HYPERPLASIA WITH LOWER URINARY TRACT SYMPTOMS (N40.1 - ICD-10-CM) ACTIVE 09/24/2023 DIARRHEA, UNSPECIFIED (R19.7 - ICD-10-CM) ACTIVE 09/24/2023 HYPERLIPIDEMIA, UNSPECIFIED (E78.5 - ICD-10-CM) ACTIVE 09/24/2023 GASTRO-ESOPHAGEAL REFLUX DIS EASE WITHOUT ESOPHAGITIS (K21.9 - ICD-10-CM) ACTIVE 09/24/2023 ESSENTIAL (PRIMARY) HYPERTENSION (I10 - ICD-10-CM) ACT GAYATHRI 09/24/2023 HYPO-OSMOLALITY AND HYPONATREMIA (E87.1 - ICD-10-CM) A CTIVE 09/24/2023 ACQUIRED ABSENCE OF KIDNEY (Z90.5 - ICD-10-CM) ACTIVE 09/24/2023 ACUTE KIDNEY FAILURE, UNSPECIFIED (N17.9 - ICD-10-CM) ACTIVE 09/24/2023 MUSCLE WEAKNESS (GENERALIZED) (M62.81 - ICD-10-CM) ACT GAYATHRI 09/24/2023 Encounters Encounter Performer Performer Role Encounter Diagnoses Location Date Discharge - Discharged / Transferred to SNF - Other - [facility] 09/24/2023 03:00 pm EST - 09/26/2023 01:01 am EST Advance Directives Directive Description Verification Advance Directive: DNR Other Directive Social History
--- OUTSIDE RECORDS SUMMARY | 2024-12-13 18:31 | XMS_ITS | Clinical Summary ---
Author Organization [facility] [employer] Address [address] [address] Phone Care Team Providers Care Group Social Worker Name Role Phone Kory Morales MD Primary Care Provider Allergies Active Allergy Reactions Criticality Noted Date Comments [place] Oil Nausea Only,Nausea A nd Vomiting,Other (see comments) High 02/18/2019 Reaction: unknown, shakes shakes Codeine Nausea Only,Nausea A nd Vomiting 02/18/2019 shakes shakes Erythromycin Nausea Only,Nausea A nd Vomiting,Other (see comments) 02/18/2019 Reaction: Unknown, shakes shakes Fish Oil Other (see comments) 05/18/2020 Neomycin Other (see comments) 02/03/2017 Niacin Other (see comments) 05/14/2021 Sulfa Antibiotics Other (see comments) 05/14/20 21 Medications * This document contains information received from the source organization and may not represent a complete record from that organization. albuterol HFA (PROVENTIL HFA;VENTOLIN HFA) 108 (90 Base) MCG/ACT inhaler Inhale 2 puffs every 4 (four) hours Active budesonide EC (ENTOCORT EC) 3 MG 24 hr capsule Take 1 capsule by mouth 1 (one) time each day Active carbidopa-levod opa (SINEMET) 25-250 MG per tablet Take 1 tablet by mouth in the morning and 1 tablet at noon and 1 tablet in the evening and 1 tablet before bedtime. Active diphenoxylate-a tropine (LOMOTIL) 2.5-0.025 MG per tablet Take 1 tablet by mouth 4 (four) times a day if needed Active HYDROcodone-kaushik taminophen (LORCET PLUS) 10-325 MG per tablet Take 1 tablet by mouth every 4 (four) hours Active loratadine (CLARITIN) 10 MG tablet Take 1 tablet by mouth if needed Active LORazepam (ATIVAN) 0.5 MG tablet Take 1 tablet by mouth 2 (two) times a day if needed 0 Active polyethylene glycol (GLYCOLAX) 17 GM/SCOOP powder Acti ve promethazine (PHENERGAN) 25 MG tablet Take 1 tablet by mouth 1 (one) time each day if needed Active umeclidinium-vi lanterol (Anoro Ellipta) 62.5-25 MCG/INH aerosol powder 1 puff by Other route 1 (one) time each day Active amLODIPine (NORVASC) 5 MG tablet Take 5 mg by mouth 1 (one) time each day Active atorvastatin (LIPITOR) 80 MG tablet Take 80 mg by mouth at bed time Active benzonatate (TESSALON) 200 MG capsule Take 200 mg by mouth 3 (three) times a day if needed Do not crush or chew. Active LACTOBACILLUS PROBIOTIC PO Take 2 tablets by mouth in the morning and 2 tablets in the evening. Active finasteride (PROSCAR) 5 MG tablet TAKE 1 TABLET(5 MG) BY MOUTH EVERY NIGHT. DO NOT CRUSH, CHEW, OR SPLIT 90 tablet 1 3 Active simethicone (MYLICON) 125 MG chewable tablet Chew 125 mg every 6 (six) hours if needed for flatulence Active levothyroxine (SYNTHROID, LEVOTHROID) 100 MCG tablet TAKE 1 TABLET(100 MCG) BY MOUTH 1 TIME EACH DAY 90 tablet 3 Active alendronate (FOSAMAX) 70 MG tablet Take 70 mg by mouth every 7 (seven) days Take in the morning with a full glass of water, on an empty stomach, and do not take anything else by mouth or lie down for the next 30 min. Active carvedilol (COREG) 3.125 MG tablet Take 3.125 mg by mouth in the morning and 3.125 mg in the evening. Take with meals. Active DULoxetine (CYMBALTA) [address] capsule Take 60 mg by mouth 1 (one) time each day Do not crush or chew. Active ferrous sulfate 325 (65 Fe) MG tablet Take 325 mg by mouth 1 (one) time each day with breakfast Active furosemide (LASIX) 20 MG tablet Take 20 mg by mouth 1 (one) time each day Active gabapentin (NEURONTIN) 300 MG capsule Take 300 mg by mouth in the morning and 300 mg in the evening and 300 mg before bedtime. Active mirtazapine (REMERON) 7.5 MG tablet Take 7.5 mg by mouth every night Active naproxen (NAPROSYN) 500 MG tablet Take 500 mg by mouth in the morning and 500 mg in the evening. Take with meals. Active omeprazole (PriLOSEC) [address] capsule Take 20 mg by mouth 1 (one) time each day Do not crush or chew. Active oxybutynin XL (DITROPAN-XL) 10 MG 24 hr tablet Take 10 mg by mouth 1 (one) time each day Do not crush, chew, or split. Active saccharomyces boulardii (FLORASTOR) 250 MG capsule Take 250 mg by mouth in the morning and 250 mg in the evening. Active spironolactone (ALDACTONE) 25 MG tablet Take 25 mg by mouth 1 (one) time each day Active tamsulosin (FLOMAX) 0.4 MG 24 hr capsule Take 0.8 mg by mouth 1 (one) time each day Active Active Problems Problem Noted Date Diagnosed Date Osteoarthritis 05/15/2021 Benign prostatic hyperplasia 05/14/2021 Stage 3a chronic kidney disease 05/14/2021 Chronic obstructive pulmonary disease 05/14/2021 Degeneration of cervical intervertebral disc Dysthymia 05/14/2021 Essential hypertension 05/14/2021 Gastro-esophageal reflux disease without esophag itis 05/14/2021 Hypothyroidism 05/14/2021 Impaired fasting glycemia 05/14/2021 Tibialis tendinitis 05/14/2021 Lymphoid leukemia 05/14/2021 Spinal stenosis of cervical region 05/14/2021 Encounters Date Type Department Care Team Description 11/29/2024 Documentation Only [facility], [address] [phone] Joe Smith MD 11/29/2024 Documentation Only [facility], [address] [phone] Joe Smith MD from Last 3 Months Immunizations Name Administration Dates Next Due Influenza (IM) Preservative Free 02/15/2019 Influenza Split High Dose Preservative Free IM 0 06/20/2020,08/18/2015 Influenza TIV (IM) 07/28/2020,07/27/2019 Influenza, Quadrivalent, With Preservative 07/16 Family History Medical History Relation Comments Cancer Mother Relation Status Comments Father Mother Social History Tobacco Use Types Packs/Day Years Used Date Smoking Tobacco: Never Smokeless Tobacco: Never Tobacco Cessation:Counseling Given: Not Answered Alcohol Use Standard Drinks/Week Comments Never 0 (1 standard drink = 0.6 oz pure alcohol) Alcoholic Drinks/day: Occasional social drink Sex and Gender Information Value Date Recorded Sex Assigned at Not on file Legal Sex Male 2:50 PM EDT Gender Identity Not on file Sexual Orientation Not on file Last Filed Vital Signs Vital Sign Reading Time Taken Comments Blood Pressure 100/50 02/03/2024 10:18 AM CDT Pulse 100 02/03/2024 10:18 AM CDT Temperature 36.1 C (97 F) 02/03/2024 10:18 AM CDT Respiratory Rate 16 02/03/2024 10:18 AM CDT Oxygen Saturation 97% 02/03/2024 10:18 AM CDT Inhaled Oxygen Concentration - - Weight 83 kg (183 lb) 09/03/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7 3.3 - 10.0 10*3/ML Red Blood Cell Count 2.96 Hemoglobin 8.4(A) 13.5 - 17.5 Hematocrit 25.1(A) 41.0 - 53.0 Platelets 170 150 - 399 10*3/UL MCV 85.0 82.0 - 108.0 Sodium 132(A) 137 - 147 Potassium 3.3(A) 3.4 - 5.5 Chloride 93.0(A) 99.0 - 108.0 Carbon Dioxide 30 mmol/L Glucose 87 60 - 200 BUN 16 4 - 21 mg/dL Creatinine 1.20 0.60 - 1.30 mg/dL Total Protein 5.6(A) 6.4 - 8.2 G/DL BUN/Creatinine Ratio 13 Albumin 3.0(A) 3.5 - 5.0 g/dL Calcium 8.7 8.7 - 10.7 mg/dL eGFR Non-Afr [place] 58(L) (TSH) Thyroid Stimulating Hormone 2.40 10/28/2024 us Historical Provider LAB BLOOD ORDERABLES Evelyne l Result from Last 3 Months Insurance MEDICAID [place] Care Teams Group Social Worker Relationship Specialty Start Date End Date Kory Morales MD [address] [place] [address] PCP - General Family Medicine 06/15/24
--- OUTSIDE RECORDS SUMMARY | 2024-12-13 18:31 | XMS_ITS | Patient Health Summary ---
Author Organization [facility] Address [address] [place] [address] Care Team Providers Care Wharf Tender Name Role Phone Ebony WILLARD MD, Devante Unavailable [phone] Steven Queen DO Primary Care Provider Note from [facility],non-owned Affiliates and Associated Physician Practices is amultiple site organization consisting of ambulatory clinics and hospital sitesin [place], [place], [place] and [place]. This disclosure is being madepursuant to the Care Everywhere program and may not contain all information available regarding this patient. Last updated 18.[facility] Allergies * [place] Oil(Nausea and/or Vomiting,Other) -High Criticality * Codeine(Nausea and/or Vomiting) * Erythromycin(Nausea and/or Vomiting,Other) * Fish Oil(Other) * Neomycin(Headache) Medications * Be aware that medications may not be up to date on this document. Alwaysverify current medications with the patient. * DULoxetine (Cymbalta) 60 MG capsule Take 1 (one) capsule by mouth once daily * trospium (Sanctura) 20 MG tablet Take 1 (one) tablet by mouth 2 times daily * amLODIPine (Norvasc) 5 MG tablet Take 1 (one) tablet by mouth once daily * hydroCHLOROthiazide (Microzide) 12.5 MG capsule Take 1 (one) capsule by mouth once daily * oxyCODONE, immediate release, (Roxicodone) 5 MG tablet(Started 03/21/2023) Take 1 (one) tablet by mouth every 4 hours as needed * acetaminophen (Tylenol) 500 MG tablet(Started 03/21/2023) Take 1 (one) tablet by mouth every 4 hours as needed for Fever, Pain or Headache Maximum allowable Acetaminophen amount = 4 Grams (4000 mg) / 24 hours. * ibuprofen (Motrin) 400 MG tablet(Started 03/21/2023) Take 1 (one) tablet by mouth every 4 hours as needed * albuterol HFA (Proventil; Ventolin; Proair) 108 (90 Base) MCG/ACT inhaler (Started 03/21/2023) Inhale 2 (two) puffs by mouth every 4 hours as needed for Shortness of Breath or Wheezing * budesonide-formoterol (Symbicort) 160-4.5 MCG/ACT inhaler(Started 03/21/2023) Inhale 2 (two) puffs by mouth 2 times daily * tiotropium (Spiriva Respimat) 2.5 MCG/ACT inhaler(Started 03/21/2023) Inhale 2 (two) puffs by mouth once daily * gabapentin (Neurontin) 400 MG capsule(Started 03/21/2023) Take 1 (one) capsule by mouth 3 times daily * atorvastatin (Lipitor) 80 MG tablet(Started 03/21/2023) Take 1 (one) tablet by mouth at bedtime * diclofenac sodium (Voltaren) 1 % gel(Started 03/21/2023) Apply 2 (two) g to affected area 4 times daily * bisacodyl (Dulcolax) 10 MG suppository(Started 03/21/2023) Insert 1 (one) suppository into the rectum once daily as needed for Constipation * polyethylene glycol 3350 (Miralax) 17 g packet(Started 03/21/2023) Take 17 (seventeen) g by mouth 2 times daily * polyethylene glycol 3350 (Miralax) 17 g packet(Started 03/21/2023) Take 17 (seventeen) g by mouth once daily as needed for Constipation * senna (Senokot) 8.6 MG tablet(Started 03/21/2023) Take 1 (one) tablet by mouth once daily * calcium-vitamin D (Os-Taj 500 + D) 500-200 mg-unit tablet(Started 03/21/2023) Take 1 (one) tablet by mouth 2 times daily with morning and evening meal * alendronate (Fosamax) 70 MG tablet(Started 03/24/2023) Take 1 (one) tablet by mouth every 7 days before meal Take in morning with full glass of water on empty stomach and remain upright for 30 min * finasteride (Proscar) 5 MG tablet(Started 03/21/2023) Take 1 (one) tablet by mouth once daily * tamsulosin (Flomax) 0.4 MG capsule(Started 03/21/2023) Take 2 (two) capsules by mouth once daily At the same time every day after a meal. * simethicone (Mylicon) 80 MG chew tablet(Started 03/21/2023) Take 1 (one) tablet by mouth 4 times daily as needed for Gas Pain * levothyroxine (Synthroid) 100 MCG tablet(Started 03/22/2023) Take 1 (one) tablet by mouth once daily * pantoprazole EC (Protonix) 40 MG tablet(Started 03/21/2023) Take 1 (one) tablet by mouth once daily * budesonide (Entocort EC) 3 MG capsule TAKE 2 CAPSULES DAILY IN THE MORNING * cephalexin (Keflex) 500 MG capsule(Started 09/07/2022) * hydrocortisone (Hytone) 2.5 % cream(Started 01/11/2023) APPLY TOPICALLY TO THE AFFECTED AREA TWICE DAILY NEEDED FOR RASH * levothyroxine (Synthroid) 100 MCG tablet(Started 01/30/2023) TAKE 1 TABLET(100 MCG) BY MOUTH 1 TIME EACH DAY * meloxicam (Mobic) 7.5 MG tablet * methocarbamol (Robaxin) 500 MG tablet * naproxen (Naprosyn) 500 MG tablet(Started 12/07/2021) Take 1 (one) tablet by mouth 2 times daily with morning and evening meal * omeprazole (PriLOSEC) 40 MG capsule(Started 02/03/2023) Take 1 (one) capsule by mouth once daily 11 refills remaining * ondansetron, disintegrating, (Zofran ODT) 4 MG tablet(Started 03/27/2023) Take 1 (one) tablet by mouth every 8 hours as needed * sertraline (Zoloft) 50 MG tablet(Started 07/22/2022) * Anoro Ellipta 62.5-25 MCG/ACT inhaler(Started 04/30/2023) * carbidopa-levodopa (Sinemet) 25-250 MG tablet(Started 08/26/2023) Take 1 (one) tablet by mouth 3 times daily 11 refills by 08/25/2024 Active Problems Problem Noted Date Diagnosed Date COPD (chronic obstructive pulmonary disease) 10/2022 Essential (primary) hypertension 02/24/2023 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 Never 02/20/2023 Q2: How many drinks containi ng alcohol do you have on a typical day when you are drinking? Patient does not drink Q3: How often do you have si x or more drinks on one occasion? Never 02/20/2023 Overall Financial Resource Strain (CARDIA) Answe r Date Recorded How hard is it for you to pa y for the very basics like food, housing, medical care, and heating? Somewhat hard 02/20/2023 [facility] - Occupational Stress Questionnaire Answer Date Recorded Do you feel stress - tense, restless, nervous, or anxious, or unable to sleep at night because your mind is troubled all the time - these days? Only a little 02/20/2023 Hunger Vital Sign Answer Date Recorded Within the past 12 months, y ou worried that your food would run out before you got the money to buy more. Sometimes true Within the past 12 months, t he food you bought just didn't last and you didn't have money to get more. Sometimes true PRAPARE - Transportation Answer Date Re corded In the past 12 months, has l ack of transportation kept you from medical appointments or from getting medications? No 01/26 In the past 12 months, has l ack of transportation kept you from meetings, work, or from getting things needed for daily living? No 02/20/2023 Housing Stability Vital Sign Answer Sergio e Recorded In the last 12 months, was t here a time when you were not able to pay the mortgage or rent on time? No 02/20/2023 In the last 12 months, how many places have you lived? 3 02/20/2023 In the last 12 months, was t here a time when you did not have a steady place to sleep or slept in a half-way (including now)? No 02/20/2023 Sex and Gender Information Value Date Recorded Sex Assigned at Not on file Gender Identity Not on file Sexual Orientation Not on file Last Filed Vital Signs Vital Sign Reading Time Taken Comments Blood Pressure 131/67 04/02/2024 10:19 AM CDT Pulse 58 04/02/2024 10:19 AM CDT Temperature 36.1 C (97 F) 04/02/2024 10:19 AM CDT Respiratory Rate 18 08/01/2023 10:45 AM CDT Oxygen Saturation 96% 04/02/2024 10:19 AM CDT Inhaled Oxygen Concentration - - Weight 90.3 kg (199 lb) 04/02/2024 10:19 AM CDT Height 177.8 cm (5' 10) 04/02/2024 10:19 AM CDT Body Mass Index 28.55 04/02/2024 10:19 AM CDT Medical Devices Implanted Type Area Fundraising Assistant Device Identifier Shelf Expiration Date Model / Serial / Lot Lag Screw 100mm Implanted:Qty: 1 on 02/20/2023 at [facility] 280.301 / / 280.301 Screw 4.5mm 8mm 46mm 3.5mm Slf-Tap Lg Implanted:Qty: 1 on 02/20/2023 at [facility] [employer] 214.846 / / Screw 4.5mm 8mm 40mm 3.5mm Slf-Tap Lg Implanted:Qty: 1 on 02/20/2023 at [facility] [employer] [facility] 214.840 / / Screw 36mm Hip Cndrl Comp Dhs Dcs Ss Implanted:Qty: 1 on 02/20/2023 at [facility] [employer] 280.990 / / Plate 2 Hl Lopro Comp Hip Cndrl 46x19 Implanted:Qty: 1 on 02/20/2023 at [facility] [employer] [facility] [id number] / / Explanted Type Area Fundraising Assistant Device Identifier Shelf Expiration Date Model / Serial / Lot Screw 12.7mm 8mm 2.7mm 95mm Hip Cndrl Explanted:Qty: 1 on 02/20/2023 at [facility] [employer] [facility] 280.295S / / Procedures * PROC UROFLOWMETRY(Performed 04/02/2024) Performed for Urinary retention * MI MSR PVR U&/BLADD CAPCTY US NON(Performed 04/02/2024) Performed for Urinary retention * XR FEMUR RIGHT 2VW(Performed 04/30/2023) Performed for Closed fracture of neck of right femur, initial encounter (HCC) * CARDIAC EKG ORDER(Performed 03/24/2023) * SARS-COV-2 (COVID-19) RAPID(Performed 03/21/2023) * XR HIP RIGHT 2VW OR MORE(Performed 03/19/2023) Performed for Closed fracture of neck of right femur, initial encounter (HCC) * MAGNESIUM BLOOD(Performed 03/17/2023) * RENAL FUNCTION PANEL(Performed 03/15/2023) * MAGNESIUM BLOOD(Performed 03/15/2023) * CBC W/O DIFFERENTIAL(Performed 03/15/2023) * RENAL FUNCTION PANEL(Performed 03/13/2023) * MAGNESIUM BLOOD(Performed 03/13/2023) * CBC W/O DIFFERENTIAL(Performed 03/13/2023) * RENAL FUNCTION PANEL(Performed 03/11/2023) * MAGNESIUM BLOOD(Performed 03/11/2023) * CBC W/O DIFFERENTIAL(Performed 03/11/2023) * CBC W/O DIFFERENTIAL(Performed 03/08/2023) * RENAL FUNCTION PANEL(Performed 03/08/2023) * MAGNESIUM BLOOD(Performed 03/08/2023) * CBC W/O DIFFERENTIAL(Performed 03/07/2023) * RENAL FUNCTION PANEL(Performed 03/07/2023) * MAGNESIUM BLOOD(Performed 03/07/2023) * RENAL FUNCTION PANEL(Performed 03/06/2023) * MAGNESIUM BLOOD(Performed 03/06/2023) * CBC W/O DIFFERENTIAL(Performed 03/06/2023) * XR HIP RIGHT 2VW OR MORE(Performed 03/05/2023) Performed for Closed fracture of neck of right femur, initial encounter (HCC) * CBC W/O DIFFERENTIAL(Performed 03/05/2023) * RENAL FUNCTION PANEL(Performed 03/05/2023) * MAGNESIUM BLOOD(Performed 03/05/2023) * CBC W/O DIFFERENTIAL(Performed 03/04/2023) * RENAL FUNCTION PANEL(Performed 03/04/2023) * MAGNESIUM BLOOD(Performed 03/04/2023) * CBC W/O DIFFERENTIAL(Performed 03/03/2023) * RENAL FUNCTION PANEL(Performed 03/03/2023) * MAGNESIUM BLOOD(Performed 03/03/2023) * CBC W/O DIFFERENTIAL(Performed 03/02/2023) * RENAL FUNCTION PANEL(Performed 03/02/2023) * MAGNESIUM BLOOD(Performed 03/02/2023) * CBC W/O DIFFERENTIAL(Performed 03/01/2023) * RENAL FUNCTION PANEL(Performed 03/01/2023) * MAGNESIUM BLOOD(Performed 03/01/2023) * CBC W/O DIFFERENTIAL(Performed 02/28/2023) * RENAL FUNCTION PANEL(Performed 02/28/2023) * MAGNESIUM BLOOD(Performed 02/28/2023) * MRI BRAIN WO CONTRAST(Performed 02/27/2023) Performed for Parkinsonism, unspecified Parkinsonism type (CMS/HCC) * XR CHEST 2VW(Performed 02/27/2023) Performed for Pulmonary emphysema, unspecified emphysema type (HCC) * XR ABDOMEN KUB PORTABLE(Performed 02/27/2023) Performed for Pulmonary emphysema, unspecified emphysema type (HCC) * CULTURE URINE(Performed 02/27/2023) * CBC W/O DIFFERENTIAL(Performed 02/27/2023) * RENAL FUNCTION PANEL(Performed 02/27/2023) * MAGNESIUM BLOOD(Performed 02/27/2023) * URINALYSIS REFLEX TO MICROSCOPIC NO CULTURE(Performed 02/26/2023) * UREA NITROGEN URINE RANDOM(Performed 02/26/2023) * CREATININE URINE RANDOM(Performed 02/26/2023) * SODIUM URINE RANDOM(Performed 02/26/2023) * OSMOLALITY URINE(Performed 02/26/2023) * XR SHOULDER RIGHT 2VW OR MORE(Performed 02/26/2023) Performed for Pain of both shoulder joints * XR SHOULDER LEFT 2VW OR MORE(Performed 02/26/2023) Performed for Pain of both shoulder joints * CBC W/O DIFFERENTIAL(Performed 02/26/2023) * RENAL FUNCTION PANEL(Performed 02/26/2023) * MAGNESIUM BLOOD(Performed 02/26/2023) * XR HIP RIGHT 2VW OR MORE(Performed 02/26/2023) Performed for Closed fracture of neck of right femur, initial encounter (HCC) * CBC W/O DIFFERENTIAL(Performed 02/25/2023) * RENAL FUNCTION PANEL(Performed 02/25/2023) * MAGNESIUM BLOOD(Performed 02/25/2023) * TRANSFUSE RED BLOOD CELL LEUKOREDUCED UNIT(S)(Performed 02/24/2023) * PREPARE RBC LEUKOREDUCED UNIT(Performed 02/24/2023) * BLOOD TYPE VERIFICATION(Performed 02/24/2023) * TYPE + SCREEN PANEL(Performed 02/24/2023) * SYPHILIS ANTIBODY CASCADING REFLEX(Performed 02/24/2023) * CBC W/O DIFFERENTIAL(Performed 02/24/2023) * RENAL FUNCTION PANEL(Performed 02/24/2023) * MAGNESIUM BLOOD(Performed 02/24/2023) * CT HEAD WO CONTRAST(Performed 02/23/2023) Performed for Dementia, senile (HCC) * HIV-1 HIV-2 ANTIBODY + HIV P24 AG PANEL(Performed 02/23/2023) * DIFFERENTIAL MANUAL(Performed 02/23/2023) * PHOSPHORUS BLOOD(Performed 02/23/2023) * MAGNESIUM BLOOD(Performed 02/23/2023) * COMPREHENSIVE METABOLIC PANEL(Performed 02/23/2023) * CBC W AUTO DIFFERENTIAL(Performed 02/23/2023) * DIFFERENTIAL MANUAL(Performed 02/22/2023) * PHOSPHORUS BLOOD(Performed 02/22/2023) * MAGNESIUM BLOOD(Performed 02/22/2023) * COMPREHENSIVE METABOLIC PANEL(Performed 02/22/2023) * CBC W AUTO DIFFERENTIAL(Performed 02/22/2023) * CBC W/O DIFFERENTIAL(Performed 02/21/2023) * DIFFERENTIAL MANUAL(Performed 02/21/2023) * PHOSPHORUS BLOOD(Performed 02/21/2023) * MAGNESIUM BLOOD(Performed 02/21/2023) * COMPREHENSIVE METABOLIC PANEL(Performed 02/21/2023) * CBC W AUTO DIFFERENTIAL(Performed 02/21/2023) * TSH REFLEX FREE T4(Performed 02/21/2023) * CALCIUM IONIZED WHOLE BLOOD(Performed 02/21/2023) * VITAMIN D 25-HYDROXY(Performed 02/21/2023) * FERRITIN(Performed 02/21/2023) * IRON + TRANSFERRIN PANEL(Performed 02/21/2023) * VITAMIN B12(Performed 02/21/2023) * FOLATE(Performed 02/21/2023) * POTASSIUM BLOOD(Performed 02/20/2023) * PHOSPHORUS BLOOD(Performed 02/20/2023) * MAGNESIUM BLOOD(Performed 02/20/2023) * COMPREHENSIVE METABOLIC PANEL(Performed 02/20/2023) * CBC W AUTO DIFFERENTIAL(Performed 02/20/2023) * PT EVAL AND TREAT(Performed 02/20/2023) * OT EVAL AND TREAT(Performed 02/20/2023) * XR HIP RIGHT 2VW OR MORE(Performed 02/20/2023) Performed for Closed fracture of neck of right femur, initial encounter ([facility]) * FL RODNEY SURGERY(Performed 02/20/2023) Performed for Closed fracture of neck of right femur, initial encounter ([facility]) * CLOSED REDUCTION EXTERNAL FIXATION LOWER EXTREMITY(Performed 02/20/2023) Performed for Closed fracture of neck of right femur, initial encounter ([facility]) * ENDOTRACHEAL TUBE NOTE(Performed 02/20/2023) * CT PELVIS WO CONTRAST(Performed 02/19/2023) Performed for Closed fracture of neck of right femur, initial encounter ([facility]) * EKG 12-LEAD(Performed 02/19/2023) Performed for Fall, initial encounter, Closed fracture of neck of right femur, initial encounter ([facility]) * XR CHEST 1VW PORTABLE(Performed 02/19/2023) Performed for Fall, initial encounter * XR KNEE RIGHT 2VW OR LESS(Performed 02/19/2023) Performed for Fall, initial encounter * XR FEMUR RIGHT 2VW(Performed 02/19/2023) Performed for Fall, initial encounter * XR PELVIS W RIGHT HIP 2VW(Performed 02/19/2023) Performed for Fall, initial encounter * DIFFERENTIAL MANUAL(Performed 02/19/2023) * COMPREHENSIVE METABOLIC PANEL(Performed 02/19/2023) * CBC W AUTO DIFFERENTIAL(Performed 02/19/2023) * EKG 12-LEAD(Performed 06/14/2022) Performed for Pre-op evaluation * COMPREHENSIVE METABOLIC PANEL(Performed 06/14/2022) Performed for Pre-op evaluation * XR KNEE RIGHT 3VW(Performed 03/05/2022) Performed for Chronic pain of right knee * URINALYSIS AUTO - POINT OF CARE (AMB) SLU(Performed 03/20/2021) Performed for Urinary frequency * MI MSR PVR U&/BLADD CAPCTY US NON(Performed 02/06/2021) Performed for Urinary frequency, Mass of left testicle, Nocturia, Mass of testicle * URINALYSIS AUTO - POINT OF CARE (AMB) SLU(Performed 02/06/2021) Performed for Urinary frequency * SURGICAL CASE CANCELLED PRIOR TO ARRIVAL Results * PROC UROFLOWMETRY (04/02/2024 12:08 PM CDT) Narrative Gerry Meredith PA - 04/02/2024 12:08 PM CDT Gerry Meredith PA 04/02/2024 12:10 PM Patient instilled with 250 mL of sterile water with 325 mL out Gerry Escobar PROCEDURE/MINOR SURG ICAL ORDERABLES * MI MSR PVR U&/BLADD CAPCTY US NON (04/02/2024 12:08 PM CDT) Narrative Gerry Meredith PA - 04/02/2024 12:08 PM CDT Gerry Meredith PA 04/02/2024 12:10 PM PVR 0mL Gerry Escobar PROCEDURE/MINOR SURG ICAL ORDERABLES * XR FEMUR RIGHT 2VW (04/30/2023 9:19 AM CDT) Only the most recent of2 resultswithin the time period is included. Anatomical Region Laterality Modality Lower Extremity Radiographic Velia ging 04/30/2023 9:33 AM CDT Impressions 04/30/2023 9:40 AM CDT IMPRESSION: Unchanged alignment of internally fixated right intertrochanteric femur fracture. Report dictated by Krzysztof Pham MD (residential leasing manager). I, Marco Antonio Flaherty MD have personally reviewed and interpreted this examination/study. > Interpreting Provider: Marco Antonio Flaherty MD on 04/30/2023 9:40 AM Narrative 04/30/2023 9:40 AM CDT PROCEDURE: XR FEMUR RIGHT 2VW, DATE/TIME OF EXAM: 04/30/2023 9:19 AM, LOCATION [facility] INDICATION: [id number]: Closed fracture of neck of right femur, initial encounter ([facility]) ADDITIONAL CLINICAL INFORMATION: Ordering Provider Reason For Exam: CLOSED FX OF RIGHT FEMUR COMPARISON: Right hip x-ray from 03/19/2023. FINDINGS: Internal fixation of right intertrochanteric femoral neck fracture with a dynamic hip screw, unchanged in alignment. The hardware is intact. There is mild heterotopic ossification around the fracture site. Moderate hip osteoarthritis. Vascular calcifications are present. Procedure Note Marco Antonio Flaherty MD - 04/30/2023 PROCEDURE: XR FEMUR RIGHT 2VW, DATE/TIME OF EXAM: 04/30/2023 9:19 AM, LOCATION [facility] INDICATION: S72.001A: Closed fracture of neck of right femur, initial encounter ([facility]) ADDITIONAL CLINICAL INFORMATION: Ordering Provider Reason For Exam: CLOSED FX OF RIGHT FEMUR COMPARISON: Right hip x-ray from 03/19/2023. FINDINGS: Internal fixation of right intertrochanteric femoral neck fracture witha dynamic hip screw, unchanged in alignment. The hardware is intact. Thereis mild heterotopic ossification around the fracture site. Moderate hip osteoarthritis. Vascular calcifications are present. IMPRESSION: Unchanged alignment of internally fixated right intertrochanteric femur fracture. Report dictated by Krzysztof Pham MD (residential leasing manager). I, Marco Antonio Flaherty MD have personally reviewed and interpreted this examination/study. > Interpreting Provider: Marco Antonio Flaherty MD on 04/30/2023 9:40 AM Raj Rachel MD DIAGNOSTIC IMAGING O RDERABLES * CARDIAC EKG ORDER (03/24/2023 2:35 PM CDT) Narrative 03/24/2023 2:35 PM CDT Ordered by an unspecified provider. Scanned Document CARDIAC SERVICES ORD ERABLES * SARS-COV-2 (COVID-19) RAPID (03/21/2023 9:23 AM CDT) COVID-19 PCR Not detected Not detected 03/21/20 10:17 AM CDT [facility] Microbiology SPECIMEN FROM NASOPHARYNGEAL STRUCTURE / Unknown Collection / Unknown 03/21/2023 9:23 AM CDT 03/21/2023 9:37 AM CDT Narrative [facility] - 03/21/2023 10:17 AM CDT The Cepheid Xpert Xpress SARS-COV-2 has been authorized by the Food and Drug Administration (FDA) under an Emergency Use Authorization (EUA). This test has been validated in accordance with the FDA's guidance document Policy for Diagnostic Testing in Laboratories Certified to perform High Complexity Testing under CLIA prior to Emergency Use Authorization for Coronavirus Disease-2019 during the Public Health Emergency issued on December 25, 2019. FDA independent review of this validation is pending. This test is only authorized for the duration of the time the declaration that circumstances exist justifying the authorization of emergency use of in vitro diagnostic tests for detection of SARS-COV-2 virus and/or diagnosis of COVID-19 infection under 564(b) (1) of the Act. 21 U.S.C. 360bbb-3 (b) (1), unless the authorization is terminated or revoked sooner. Fact Sheets for this EUA assay are available upon request. Chele Butt MD LAB - MICROBIO LOGY ORDERABLES [facility] [address] [place] [id number], [facility] [phone] * XR HIP RIGHT 2VW OR MORE (03/19/2023 6:05 PM CDT) Only the most recent of4 resultswithin the time period is included. Anatomical Region Laterality Modality Pelvis, Lower Extremity Radiogra phic Imaging 03/20/2023 8:03 AM CDT Narrative 03/21/2023 2:46 AM CDT PROCEDURE: XR HIP RIGHT 2VW OR MORE, DATE/TIME OF EXAM: 03/19/2023 6:05 PM, LOCATION [facility] INDICATION: [id number]: Closed fracture of neck of right femur, initial encounter ([facility]) ADDITIONAL CLINICAL INFORMATION: Ordering Provider Reason For Exam: fx COMPARISON: Right hip x-ray dated 03/05/2023. FINDINGS-IMPRESSION: Redemonstrated internal fixated right intertrochanteric femoral fracture within the dynamic screw. The fracture alignment is unchanged. There is mild heterotopic ossification around the intertrochanteric femur. Vascular calcifications are present. Report dictated by Krzysztof Pham MD (residential leasing manager). Casey Peña MD have personally reviewed and interpreted this examination/study. > Interpreting Provider: Casey Thomas MD on 03/21/2023 2:46 AM Procedure Note Casey Thomas MD - 03/21/2023 PROCEDURE: XR HIP RIGHT 2VW OR MORE, DATE/TIME OF EXAM: 03/19/2023 6:05 PM, LOCATION [facility] INDICATION: [id number]: Closed fracture of neck of right femur, initial encounter ([facility]) ADDITIONAL CLINICAL INFORMATION: Ordering Provider Reason For Exam: fx COMPARISON: Right hip x-ray dated 03/05/2023. FINDINGS-IMPRESSION: Redemonstrated internal fixated right intertrochanteric femoral fracture within the dynamic screw. The fracture alignment is unchanged. There is mild heterotopic ossification around the intertrochanteric femur.Vascular calcifications are present. Report dictated by Krzysztof Pham MD (residential leasing manager). Casey Peña MD have personally reviewed and interpreted this examination/study. > Interpreting Provider: Casey Thomas MD on 03/21/2023 2:46 AM Alicia Carbajal PA-C DIAGNOSTIC I MAGING ORDERABLES * MAGNESIUM BLOOD (03/17/2023 4:35 AM CDT) Only the most recent of21 resultswithin the time period is included. Magnesium 1.9 1.6 - 2.6 mg/dL 03/17/2023 5:43 AM CDT [facility] Blood BLOOD SPECIMEN / Unknown Lab Venipuncture / Unknown 03/17/2023 4:35 AM CDT 03/17/2023 5:15 AM CDT Osama A Tony MD LAB - CHEMISTRY ALIE PAYAN [facility] [address] [place] [address], [facility] [phone] * (ABNORMAL) CBC W/O DIFFERENTIAL (03/15/2023 7:30 AM CDT) Only the most recent of17 resultswithin the time period is included. WBC 6.9 3.5 - 10.5 10 3/uL 03/15/2023 8:40 AM [facility] RBC 3.55(L) 4.30 - 5.70 10 6/uL 03/15/2023 8:40 AM [facility] Hemoglobin 9.5(L) 12.0 - 17.6 g/dL 03/15/2023 8:40 AM [facility] Hematocrit 30.2(L) 35.2 - 51.7 % 03/15/2023 8:40 AM [facility] MCV 85.1 80.7 - 98.3 fL 03/15/2023 8:40 AM [facility] MCH 26.8 26.7 - 34.0 pg 03/15/2023 8:40 AM [facility] MCHC 31.5 30.8 - 35.9 g/dL 03/15/2023 8:40 AM [facility] RDW-SD 53.5(H) 36.0 - 50.0 fL 03/15/2023 8:40 AM [facility] RDW-CV 17.4(H) 11.2 - 14.8 % 03/15/2023 8:40 AM [facility] Platelet Count 186 150 - 400 10 3/uL 03/15/2023 8:40 AM [facility] MPV 10.3 9.4 - 12.9 fL 03/15/2023 8:40 AM [facility] nRBC Absolute 0.00 0 10 3/uL 03/15/2023 8:40 AM [facility] nRBC Auto 0.0 0 /100 WBC 03/15/2023 8:40 AM [facility] Blood BLOOD SPECIMEN / Unknown Lab Venipuncture / Unknown 03/15/2023 7:30 AM CDT 03/15/2023 8:31 AM CDT Elaido Jimenez MD LAB - HEMATOLOGY ORD ERABLES [facility] [address] [place] [address], [facility] [phone] * (ABNORMAL) RENAL FUNCTION PANEL (03/15/2023 7:30 AM CDT) Only the most recent of16 resultswithin the time period is included. BUN 30(H) 7 - 26 mg/dL 03/15/2023 9:15 AM [facility] Creatinine 1.01 0.71 - 1.16 mg/dL 03/15/2023 9:15 AM [facility] Sodium 137 136 - 145 mmol/L 03/15/2023 9:15 AM [facility] Potassium 4.1 3.5 - 4.5 mmol/L 03/15/2023 9:15 AM [facility] Chloride 102 98 - 107 mmol/L 03/15/2023 9:15 AM [facility] CO2 24 22 - 29 mmol/L 03/15/2023 9:15 AM [facility] Glucose 83 70 - 115 mg/dL 03/15/2023 9:15 AM [facility] Albumin 2.9(L) 3.4 - 5.0 g/dL 03/15/2023 9:15 AM [facility] Calcium 8.8 8.4 - 10.2 mg/dL 03/15/2023 9:15 AM [facility] Phosphorus 3.9 2.8 - 5.1 mg/dL 03/15/2023 9:15 AM [facility] Anion Gap 15 8 - 18 03/15/2023 9:15 AM [facility] BUN/Creatinine Ratio 30(H) 7 - 23 03/15/2023 9:15 AM [facility] Osmolality Calculated 289 270 - 300 mOsm/kg 03/15/2023 9:15 AM [facility] eGFR by CKD-EPI 74(L) >=90 mL/min/1.7 3 m2 03/15/2023 9:15 AM CDT [facility] Blood BLOOD SPECIMEN / Unknown Lab Venipuncture / Unknown 03/15/2023 7:30 AM CDT 03/15/2023 8:33 AM CDT Eladio Jimenez MD LAB - CHEMISTRY ALIE PAYAN [facility] Organization Address City/State/ZIP Co de Phone Number [facility] [address] [place] [address], [facility] [phone] * MRI BRAIN WO CONTRAST (02/27/2023 10:42 PM CDT) Anatomical Region Laterality Modality Head Magnetic Resonan ce 02/28/2023 10:3 5 AM CDT Impressions 02/28/2023 10:55 AM CDT IMPRESSION: No evidence of acute intracranial abnormality. Generalized parenchymal volume loss with chronic ischemic small vessel changes. There is slight atrophy of the midbrain compared to the flako, nonspecific however could be seen with progressive supranuclear palsy, clinical correlation is recommended. > Interpreting Provider: Tran Trimble MD on 02/28/2023 10:55 AM Narrative 02/28/2023 10:55 AM CDT PROCEDURE: MRI BRAIN WO CONTRAST DATE/TIME OF EXAM: 02/27/2023 10:43 PM CLINICAL INFORMATION: None relevant/not provided if blank. Indication: G20: Parkinsonism, unspecified Parkinsonism type (CMS/HCC) Additional History: COMPARISON: CT head 02/23/2023 TECHNIQUE: MRI of the brain was performed without contrast, according to movement disorder protocol FINDINGS: No evidence of acute hemorrhage noted. No evidence of acute cerebral infarction is seen. Foci of susceptibility in the right basal ganglia most likely sequela of chronic microhemorrhages/mineralization. There is moderate to severe generalized cerebral volume loss with associated ex vacuo ventricular dilatation. No mass effect or midline shift is seen. 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 Mild to moderate burden of periventricular and scattered subcortical, pontine white matter FLAIR hyperintensities most likely sequela of chronic ischemic small vessel disease. Sella appears normal. Small foci of chronic infarcts through the corpus callosum. There is possible slight atrophy of the midbrain compared to the flako. The posterior fossa, brainstem, and craniocervical junction otherwise appear normal. Generalized atrophy of the hippocampi without evidence of abnormal signal. Other than bilateral cataract extractions, the visualized portions of the orbits, paranasal sinuses, and mastoids appear normal. Normal flow voids are demonstrated in the carotid arteries and basilar artery. No acute in the visualized portions of the calvarium or cervical spine. Degenerative changes noted in the cervical spine without high-grade central canal stenosis. Procedure Note Tran Trimble MD - 02/28/2023 PROCEDURE: MRI BRAIN WO CONTRAST DATE/TIME OF EXAM: 02/27/2023 10:43 PM CLINICAL INFORMATION: None relevant/not provided if blank. Indication: G20: Parkinsonism, unspecified Parkinsonism type (CMS/HCC) Additional History: COMPARISON: CT head 02/23/2023 TECHNIQUE: MRI of the brain was performed without contrast, according to movement disorder protocol FINDINGS: No evidence of acute hemorrhage noted. No evidence of acute cerebral infarction is seen. Foci of susceptibility in the right basal gangliamost likely sequela of chronic microhemorrhages/mineralization. There is moderate to severe generalized cerebral volume loss with associated ex vacuo ventricular dilatation. No mass effect or midline shift is seen. 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 Mild to moderate burden of periventricular and scattered subcortical, pontinewhite matter FLAIR hyperintensities most likely sequela of chronic ischemicsmall vessel disease. Sella appears normal. Small foci of chronic infarcts through the corpus callosum. There is possible slight atrophy of the midbrain compared to the flako. The posterior fossa, brainstem, and craniocervical junction otherwise appear normal. Generalized atrophy ofthe hippocampi without evidence of abnormal signal. Other than bilateral cataract extractions, the visualized portions ofthe orbits, paranasal sinuses, and mastoids appear normal. Normal flow voids are demonstrated in the carotid arteries and basilar artery. No acute in the visualized portions of the calvarium or cervical spine. Degenerative changes noted in the cervical spine without high-gradecentral canal stenosis. IMPRESSION: No evidence of acute intracranial abnormality. Generalized parenchymal volume loss with chronic ischemic small vessel changes. There is slight atrophy of the midbrain compared to the flako,nonspecific however could be seen with progressive supranuclear palsy, clinical correlation is recommended. > Interpreting Provider: Tran Trimble MD on 02/28/2023 10:55 AM Jessica Mei MD MR ORDERABLES * XR CHEST 2VW (02/27/2023 9:50 PM CDT) Anatomical Region Laterality Modality Chest Radiographic Velia ging 02/28/2023 9:46 AM CDT Narrative 02/28/2023 12:47 PM CDT PROCEDURE: XR CHEST 2VW, DATE/TIME OF EXAM: 02/27/2023 9:50 PM, LOCATION [facility] INDICATION: J43.9: Pulmonary emphysema, unspecified emphysema type (CMS/HCC) ADDITIONAL CLINICAL INFORMATION: Ordering Provider Reason For Exam: MRI CLEARANCE Technologist Note: Additional: COMPARISON: 02/19/2023 FINDINGS/IMPRESSION: Emphysematous changes are noted. Mild pulmonary vascular congestion is noted. No confluent consolidation. The costophrenic angles are not well characterized on the lateral view. Tiny pleural effusions aren't excluded. Heart size and mediastinal contours are stable. There are degenerative changes of bilateral shoulder. Report dictated by Ric Booker MD (residential leasing manager). RAINA Peña MD have personally reviewed and interpreted this examination/study. > Interpreting Provider: RAINA PETER MD on 02/28/2023 12:47 PM Procedure Note Raina Peter MD - 02/28/2023 PROCEDURE: XR CHEST 2VW, DATE/TIME OF EXAM: 02/27/2023 9:50 PM, LOCATION [facility] INDICATION: J43.9: Pulmonary emphysema, unspecified emphysema type (CMS/HCC) ADDITIONAL CLINICAL INFORMATION: Ordering Provider Reason For Exam: MRI CLEARANCE Technologist Note: Additional: COMPARISON: 02/19/2023 FINDINGS/IMPRESSION: Emphysematous changes are noted. Mild pulmonary vascular congestion is noted. No confluent consolidation. The costophrenic angles are not well characterized on the lateral view. Tiny pleural effusions aren'texcluded. Heart size and mediastinal contours are stable. There are degenerative changes of bilateral shoulder. Report dictated by Ric Booker MD (residential leasing manager). RAINA Peña MD have personally reviewed and interpreted this examination/study. > Interpreting Provider: RAINA PETER MD on 02/28/2023 12:47 PM Jessica Mei MD DIAGNOSTIC IMAGING O RDERABLES * XR ABDOMEN KUB PORTABLE (02/27/2023 9:49 PM CDT) Anatomical Region Laterality Modality Abdomen Radiographic Velia ging 02/28/2023 8:09 AM CDT Impressions 02/28/2023 2:12 PM CDT IMPRESSION: Nonspecific, nonpathologic, the small bowel gaseous distention the right abdomen. Correlate with physical examination for signs/symptoms of partial obstruction. No evidence of high-grade obstruction. Report dictated by Robles Sheppard MD, MD (residential leasing manager). I, RAINA PETER MD have personally reviewed and interpreted this examination/study. > Interpreting Provider: RAINA PETER MD on 02/28/2023 2:12 PM Narrative 02/28/2023 2:12 PM CDT PROCEDURE: XR ABDOMEN KUB PORTABLE DATE/TIME OF EXAM: 02/27/2023 9:50 PM CLINICAL INFORMATION: None relevant/not provided if blank. Indication: J43.9: Pulmonary emphysema, unspecified emphysema type (CMS/HCC) Additional History: COMPARISON: None. FINDINGS/IMPRESSION: Devices/lines: *Partially visualized right hip arthroplasty *Surgical clips are seen in the right upper and right lower quadrant abdomen *Cholecystectomy clips are noted Gas and stool are seen throughout the colon. A mild paucity of gas in the rectum is noted. Gaseously distended loops of small bowel are seen in the right hemiabdomen. No pneumatosis or portal venous gas is seen. Free peritoneal air is not adequately assessed on supine radiographs.. Degenerative changes are seen throughout the spine. No acute osseous abnormality is noted. Procedure Note Raina Peter MD - 02/28/2023 PROCEDURE: XR ABDOMEN KUB PORTABLE DATE/TIME OF EXAM: 02/27/2023 9:50 PM CLINICAL INFORMATION: None relevant/not provided if blank. Indication: J43.9: Pulmonary emphysema, unspecified emphysema type (CMS/HCC) Additional History: COMPARISON: None. FINDINGS/IMPRESSION: Devices/lines: *Partially visualized right hip arthroplasty *Surgical clips are seen in the right upper and right lower quadrant abdomen *Cholecystectomy clips are noted Gas and stool are seen throughout the colon. A mild paucity of gas inthe rectum is noted. Gaseously distended loops of small bowel are seen inthe right hemiabdomen. No pneumatosis or portal venous gas is seen. Free peritoneal air is not adequately assessed on supine radiographs.. Degenerative changes are seen throughout the spine. No acute osseous abnormality is noted. IMPRESSION: Nonspecific, nonpathologic, the small bowel gaseous distention the right abdomen. Correlate with physical examination for signs/symptoms ofpartial obstruction. No evidence of high-grade obstruction. Report dictated by Robles Sheppard MD, MD (residential leasing manager). I, RAINA PETER MD have personally reviewed and interpreted this examination/study. > Interpreting Provider: RAINA PETER MD on 02/28/2023 2:12 PM Jessica Mei MD DIAGNOSTIC IMAGING O RDERABLES * (ABNORMAL) CULTURE URINE (02/27/2023 1:03 PM CDT) Culture Urine 50,000-100,000 CFU/mL Proteus mirabilis(A) ANABELLA 03/01/2023 2:51 AM CDT [facility] Culture Urine <10,000 CFU/mL urogenital manuel ANABELLA 03/01/2023 2:51 AM CDT [facility] Urine URINE SPECIMEN OBTAINED BY CLEAN CATCH PROCEDURE / Unknown Collection / Unknown 02/27/2023 1:03 PM CDT 02/27/2023 1:11 PM CDT Narrative Organism Antibiotic Method Susceptibility Proteus mirabilis Amikacin ANABELLA <=2 ug/mL: Susceptible Proteus mirabilis Ampicillin ANABELLA <=2 ug/mL: Susceptible Proteus mirabilis Ampicillin-sulbactam ANABELLA <=2 ug/mL: Susceptible Proteus mirabilis Cefazolin ANABELLA <=4 ug/mL: See Comment* Proteus mirabilis Cefazolin-Urine (uncomplicated infections ONLY) ANABELLA <=4 ug/mL: Susceptible Proteus mirabilis Cefepime ANABELLA <=1 ug/mL: Susceptible Proteus mirabilis Ceftriaxone ANABELLA <=1 ug/mL: Susceptible Proteus mirabilis Ciprofloxacin ANABELLA <=0.25 ug/mL: Susceptible Proteus mirabilis Gentamicin ANABELLA <=1 ug/mL: Susceptible Proteus mirabilis Meropenem ANABELLA <=0.25 ug/mL: Susceptible Proteus mirabilis Piperacillin-tazobactam ANABELLA <=4 ug/mL: Susceptible Proteus mirabilis Tobramycin ANABELLA <=1 ug/mL: Susceptible Proteus mirabilis Trimethoprim-sulfame thoxa zole ANABELLA <=20 ug/mL: Susceptible Comment: *Cefazolin ANABELLA of </=4 cannot distinguish between susceptible or intermediate for systemic breakpoints. If further defined interpretation is needed, call Microbiology and a disk diffusion test will be performed. Urine breakpoints for cefazolin should only be used when treating uncomplicated UTIs including men and women without urologic abnormality, kidney stones, stents, nephrostomy tubes, signs/symptoms of systemic illness, or pelvic/perineal pain in men. Cefazolin results can be used to predict susceptibility to oral cephalosporins - cephalexin, cefprozil, cefaclor, cefuroxime, cefdinir, and cefpodoxime. For complicated UTIs, use alternative cefazolin susceptibility result above. Jessica Mei MD LAB - MICROBIOLOGY O RDERABLES [facility] [address] [place] [address], [facility] [phone] * (ABNORMAL) URINALYSIS REFLEX TO MICROSCOPIC NO CULTURE (02/26/2023 11:37 PM CDT) Color UA Amy(A) Straw, Yellow 02/26/2023 11:58 PM [facility] Clarity UA Cloudy(A) Clear 02/26/2023 11:58 PM CDT [facility] Specific Stambaugh UA 1.017 1.005 - 1.030 02/26/2023 11:58 PM [facility] pH UA 8.0 5.0 - 8.0 pH 02/26/2023 11:58 PM [facility] Protein UA 2+(A) Negative 02/26/2023 11:58 PM [facility] Glucose UA Negative Negative 02/26/2023 11:58 PM CDT [facility] Ketone UA Negative Negative 02/26/2023 11:58 PM T [facility] Bilirubin UA Negative Negative 02/26/2023 11:58 PM CDT [facility] Blood UA 1+(A) Negative 02/26/2023 11:58 PM T [facility] Nitrite UA Positive(A) Negative 02/26/2023 11:58 PM T [facility] Leukocyte Esterase 3+(A) Negative 02/26/2023 11:58 PM CDT [facility] Urobilinogen UA Negative Negative mg/dL 02/26/2023 11:58 PM T [facility] RBC UA 0-2 None Seen, 0-2, 3-5 /HPF 02/26/2023 11:58 PM CDT [facility] WBC UA >100(A) None Seen, 0-5 /HPF 02/26/2023 11:58 PM T [facility] Bacteria UA Trace(A) None /HPF 02/26/2023 11:58 PM CDT [facility] Squamous Epithelial Cells UA 0-2 None Seen, 0-2, 3-5 /HPF 02/26/2023 11:58 PM T [facility] Triple Phosphate Crystals UA Many(A) None /HPF 02/26/2023 11:58 PM CDT [facility] Urine URINE SPECIMEN OBTAINED BY CLEAN CATCH PROCEDURE / Unknown Collection / Unknown 02/26/2023 11:37 PM CDT 02/26/2023 11:44 PM CDT Narrative [facility] - 02/26/2023 11:58 PM CDT Jessica Mei MD LAB - URINALYSIS ORD ERABLES Performing Organization Address City/State/[facility] Co de Phone Number [address] [address], [facility] [phone] * SODIUM URINE RANDOM (02/26/2023 9:58 AM CDT) Sodium Urine 38 Not Established mmol/L 02/26/2023 10:32 AM CDT [facility] Urine URINE SPECIMEN OBTAINED BY CLEAN CATCH PROCEDURE / Unknown Collection / Unknown 02/26/2023 9:58 AM CDT 02/26/2023 10:09 AM CDT Jessica Mei MD LAB - URINE CHEMISTR Y ORDERABLES Performing Organization Address City/[facility]/ZIP Co de Phone Number [address] [address], [facility] [phone] * UREA NITROGEN URINE RANDOM (02/26/2023 9:58 AM CDT) Urea Nitrogen Random Urine 861 Not Established mg/dL 02/26/2023 10:32 AM CDT [facility] Urine URINE SPECIMEN OBTAINED BY CLEAN CATCH PROCEDURE / Unknown Collection / Unknown 02/26/2023 9:58 AM CDT 02/26/2023 10:09 AM CDT Jessica Mei MD LAB - URINE CHEMISTR Y ORDERABLES Performing Organization Address City/[facility]/ZIP Co de Phone Number [address] [address], [facility] [phone] * OSMOLALITY URINE (02/26/2023 9:58 AM CDT) Osmolality Urine 611 50 - 1,200 mOsm/kg 02/26/2023 11:28 AM CDT [facility] Urine URINE SPECIMEN OBTAINED BY CLEAN CATCH PROCEDURE / Unknown Collection / Unknown 02/26/2023 9:58 AM CDT 02/26/2023 10:09 AM CDT Jessica Mei MD LAB - URINE CHEMISTR Y ORDERABLES Performing Organization Address City/[facility]/ZIP Co de Phone Number [address] [address], [facility] [phone] * CREATININE URINE RANDOM (02/26/2023 9:58 AM CDT) Creatinine Urine 76 Not Established mg/dL 02/26/2023 10:32 AM CDT [facility] Urine URINE SPECIMEN OBTAINED BY CLEAN CATCH PROCEDURE / Unknown Collection / Unknown 02/26/2023 9:58 AM CDT 02/26/2023 10:09 AM CDT Jessica Mei MD LAB - URINE CHEMISTR Y ORDERABLES [place] [id number] [place] [address], [facility] [phone] * XR SHOULDER RIGHT 2VW OR MORE (02/26/2023 9:16 AM CDT) Anatomical Region Laterality Modality Upper Extremity Radiographic Velia ging 02/27/2023 7:14 AM CDT Narrative 02/27/2023 9:05 AM CDT PROCEDURE: XR SHOULDER RIGHT 2VW OR MORE, DATE/TIME OF EXAM: 02/26/2023 9:16 AM, LOCATION [facility] INDICATION: M25.511: Pain of both shoulder joints M25.512: Pain of both shoulder joints ADDITIONAL CLINICAL INFORMATION: Ordering Provider Reason For Exam: bilateral shoulder pain s/p fall. Pain greater localized anteriorly near biceps tendon insertion. COMPARISON: None. FINDINGS/IMPRESSION: No evidence of acute fracture. The humeral head is high riding suggesting chronic rotator cuff tear. 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 There is apparent osteolysis or resection of the distal clavicle. Report dictated by Ric Booker MD (residential leasing manager). Portia Peña MD have personally reviewed and interpreted this examination/study. > Interpreting Provider: Portia Gates MD on 02/27/2023 9:05 AM Procedure Note Portia Gates MD - 02/27/2023 PROCEDURE: XR SHOULDER RIGHT 2VW OR MORE, DATE/TIME OF EXAM: 02/26/2023 9:16 AM, LOCATION [facility] INDICATION: M25.511: Pain of both shoulder joints M25.512: Pain of both shoulder joints ADDITIONAL CLINICAL INFORMATION: Ordering Provider Reason For Exam: bilateral shoulder pain s/p fall.Pain greater localized anteriorly near biceps tendon insertion. COMPARISON: None. FINDINGS/IMPRESSION: No evidence of acute fracture. The humeral head is high ridingsuggesting chronic rotator cuff tear. There is moderate glenohumeral jointarthritis. There is apparent osteolysis or resection of the distal clavicle. Report dictated by Ric Booker MD (residential leasing manager). Portia Peña MD have personally reviewed and interpreted this examination/study. > Interpreting Provider: Portia Gates MD on 02/27/2023 9:05 AM Jessica Mei MD DIAGNOSTIC IMAGING O RDERABLES * XR SHOULDER LEFT 2VW OR MORE (02/26/2023 9:15 AM CDT) Anatomical Region Laterality Modality Upper Extremity Radiographic Velia ging 02/27/2023 7:16 AM CDT Impressions 02/27/2023 9:09 AM CDT IMPRESSION: No acute fracture. Report dictated by Ric Booker MD (residential leasing manager). I, Portia Gates MD have personally reviewed and interpreted this examination/study. > Interpreting Provider: Portia Gates MD on 02/27/2023 9:09 AM Narrative 02/27/2023 9:09 AM CDT PROCEDURE: XR SHOULDER LEFT 2VW OR MORE, DATE/TIME OF EXAM: 02/26/2023 9:15 AM, LOCATION [facility] INDICATION: M25.511: Pain of both shoulder joints M25.512: Pain of both shoulder joints ADDITIONAL CLINICAL INFORMATION: Ordering Provider Reason For Exam: bilateral shoulder pain s/p fall. Pain non localized. No known direct shoulder trauma. No bruising. COMPARISON: None. FINDINGS: No evidence of acute fracture. The glenohumeral joint is intact and well aligned. There are mild degenerative changes of the glenohumeral joint and spurring of the acromion. The distal clavicle appears resected. Spotty demineralization is seen in the humerus. Procedure Note Portia Gates MD - 02/27/2023 PROCEDURE: XR SHOULDER LEFT 2VW OR MORE, DATE/TIME OF EXAM: 39:15 AM, LOCATION [facility] INDICATION: M25.511: Pain of both shoulder joints M25.512: Pain of both shoulder joints ADDITIONAL CLINICAL INFORMATION: Ordering Provider Reason For Exam: bilateral shoulder pain s/p fall.Pain non localized. No known direct shoulder trauma. No bruising. COMPARISON: None. FINDINGS: No evidence of acute fracture. The glenohumeral joint is intact and well aligned. There are mild degenerative changes of the glenohumeral jointand spurring of the acromion. The distal clavicle appears resected. Spotty demineralization is seen in the humerus. IMPRESSION: No acute fracture. Report dictated by Ric Booker MD (residential leasing manager). I, Portia Gates MD have personally reviewed and interpreted this examination/study. > Interpreting Provider: Portia Gates MD on 02/27/2023 9:09 AM Jessica Mei MD DIAGNOSTIC IMAGING O RDERABLES * TRANSFUSE RED BLOOD CELL LEUKOREDUCED UNIT(S) (02/24/2023 8:52 PM CDT) Jessica Mei MD NURSING - BLOOD PROD TRANSFUSION * PREPARE (CROSSMATCH) RBC UNIT(S), 1 Units (02/24/2023 6:24 PM CDT) Unit Description AS1 LR PRBC [facility] Unit ABO O [facility] Unit Rh POS [facility] Product Number R02 [facility] B LOOD BANK LAB Unit Donor # [id number] [facility] Unit Status transfused [facility] Product Code [id number] [facility] BLO OD [facility]ANK LAB Blood Type Barcode 5100 [facility] Expiration Date [id number] S BLOOD BANK LAB Blood Bank BLOOD SPECIMEN / Unknown 02/24/2023 4:21 PM CDT Jessica Mei MD LAB - BLOOD BANK ORD ERABLES Performing Organization Address [facility] Co de Phone Number [facility] [address] [place] [address], [facility] [phone] * BLOOD TYPE VERIFICATION (02/24/2023 5:33 PM CDT) ABO Rh O POS 02/24/2023 6:0 0 PM CDT [facility] Blood Bank BLOOD SPECIMEN / Unknown Venipuncture / Unknown 02/24/2023 5:33 PM CDT 02/24/2023 5:39 PM CDT Sarah Ocampo MD LAB - BLOOD BANK ORD ERABLES [facility] [address] [place] [address], [place] [phone] * TYPE + SCREEN PANEL (02/24/2023 3:06 PM CDT) Antibody Screen NEG 5:00 PM CDT [facility] ABO Rh O POS 02/24/2023 5:00 PM CDT [facility] Blood Bank BLOOD SPECIMEN / Unknown 02/24/2023 3:06 PM CDT 02/24/2023 4:21 PM CDT Jessica Mei MD LAB - BLOOD BANK ORD ERABLES Performing Organization Address [facility] Co de Phone Number [facility] [address] [place] [address], [place] [phone] * SYPHILIS ANTIBODY CASCADING REFLEX (02/24/2023 1:26 AM CDT) Treponema pallidum Antibody Non-react del Non-react del 02/24/2023 2:23 AM CDT [facility] [facility] Comment: No Laboratory evidence of syphilis infection. Note: Circulating antibodies may be low or undetectable in early infection. If recent exposure is suspected, re-draw sample in 2-4 weeks and repeat testing. Blood BLOOD SPECIMEN / Unknown Lab Venipuncture / Unknown 02/24/2023 1:26 AM CDT 02/24/2023 1:30 AM CDT Eladio Jimenez MD LAB - SEROLOGY ORDER BELEN Performing Organization Address [facility]/ZIP Co de Phone Number [facility] [address] [place] [phone], [place] [phone] * CT HEAD WO CONTRAST (02/23/2023 3:52 PM CDT) Anatomical Region Laterality Modality Head Computed Tomogra phy 02/23/2023 3:55 PM CDT Impressions 02/23/2023 4:17 PM CDT IMPRESSION: 1.No acute intracranial hemorrhage, midline shift, or significant mass effect. 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 > Dictated by Chucho Ludwig DO (residential leasing manager). Sangita Peña MD have personally reviewed and interpreted this examination/study. 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 Additional: None. TECHNIQUE: CT of the head was performed without contrast according to standard protocol. CT dose reduction technique was used, including Automated Exposure Control. COMPARISON: No prior study is available for comparison at the time of this dictation. FINDINGS: No acute intra- or extra-axial fluid collections are identified. There is mild to moderate cerebral volume loss with associated ex vacuo ventricular dilatation. There is prominence of the subarachnoid space along the posterior frontoparietal regions, more on the left side. The basilar cisterns are patent. No mass effect or midline shift is seen. Nonspecific calcifications in the right basal ganglia. The patterson-white matter differentiation is normal. Periventricular white matter hypoattenuation is indicative of chronic small vessel ischemic disease. There is vascular calcification of the carotid siphons and the V4 segments of the vertebral arteries. Old infarcts are seen in the bilateral cerebellar hemispheres and the bilateral basal ganglia periventricular white matter, more on left side lucent lesion in the parasagittal anterior left parietal bone may represent sequela of arachnoid granulations with focal thinning of the overlaying outer cortex. No acute calvarial fracture is identified. Other than bilateral cataract extractions, the orbits appear normal. There is mild paranasal sinus disease. The mastoid air cells are grossly clear. No soft tissue abnormality is identified. 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 Additional: None. TECHNIQUE: CT of the head was performed without contrast according to standard protocol. CT dose reduction technique was used, including Automated Exposure Control. COMPARISON: No prior study is available for comparison at the time ofthis dictation. FINDINGS: No acute intra- or extra-axial fluid collections are identified. Thereis mild to moderate cerebral volume loss with associated ex vacuoventricular dilatation. There is prominence of the subarachnoid space along the posterior frontoparietal regions, more on the left side. The basilar cisterns are patent. No mass effect or midline shift is seen.Nonspecific calcifications in the right basal ganglia. The patterson-white matter differentiation is normal. Periventricular white matter hypoattenuationis indicative of chronic small vessel ischemic disease. There is vascular calcification of the carotid siphons and the V4 segments of thevertebral arteries. 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 No acute calvarial fracture is identified. Other than bilateral cataract extractions, the orbits appear normal. There is mild paranasal sinus disease. The mastoid air cells are grossly clear. Nosoft tissue abnormality is identified. IMPRESSION: 1.No acute intracranial hemorrhage, midline shift, or significant mass effect. 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 > Dictated by Chucho Ludwig DO (residential leasing manager). I, Sangita Goldman MD have personally reviewed and interpretedthis examination/study. > Interpreting Provider: Sangita Goldman MD on 02/23/2023 4:17 PM Eladio Jimenez MD CT ORDERABLES * HIV-1 HIV-2 ANTIBODY + HIV P24 AG PANEL (02/23/2023 12:42 PM CDT) Pathologist [facility] HIV Antigen/Antibod y 1 & 2 Non-reacti ve Non-react del 02/23/2023 2:00 PM CDT [facility] Comment:No Laboratory eviden ce of HIV infection. Blood BLOOD SPECIMEN / Unknown Lab Venipuncture / Unknown 02/23/2023 12:42 PM CDT 02/23/2023 12:51 PM CDT Eladio Jimenez MD LAB - CHEMISTRY ALIE PAYNA [facility] [address] [place] [address], [facility] [phone] * (ABNORMAL) DIFFERENTIAL MANUAL (02/23/2023 1:57 AM CDT) Only the most recent of4 resultswithin the time period is included. Pathologist [facility] WBC (corrected for NRBC) 6.8 10 3/uL 02/23/2023 2:59 AM CDT [facility] Total Cell Count 100 02/24/20 23 2:59 [address] [facility] Neutrophils Absolute Manual 3.94 1.60 - 7.00 10 3/uL 02/23/2023 2:59 AM [facility] Comment:(BANDS+SEGS) x WBC = NEUT # (ANC) Lymphocyte Absolute Manual 1.97 1.10 - 3.90 10 3/uL 02/23/2023 2:59 AM CDT [facility] Monocytes Absolute Manual 0.54 0.26 - 1.07 10 3/uL 02/23/2023 2:59 AM CDT [facility] Eosinophils Absolute Manual 0.27 0.00 - 0.47 10 3/uL 02/23/2023 2:59 AM CDT [facility] Neutrophil % Manual 58 35 - 70 % 02/23/2023 2:59 AM [facility] Lymphocyte % Manual 29 20 - 43 % 02/23/2023 2:59 AM [facility] Monocytes % Manual 8 5 - 13 % 02/23/2023 2:59 AM T [facility] Eosinophils % Manual 4 0 - 6 % 02/23/2023 2:59 AM CDT [facility] Atypical Lymphocyte % Manual 1(H) 0 % 02/23/2023 2:59 AM T [facility] Platelet Estimate Decreased (A) Adequate 02/23/2023 2:59 AM CDT [facility] Anisocytosis Occasiona l(A) None 02/23/2023 2:59 AM CDT [facility] Ovalocytes Occasiona l(A) None 02/23/2023 2:59 AM T [facility] Blood BLOOD SPECIMEN / Unknown Lab Venipuncture / Unknown 02/23/2023 1:57 AM CDT 02/23/2023 2:12 AM CDT Mirza Sanchez MD LAB - HEMATOLOGY ORD ERABLES [facility] [address] [place] [address], [facility] [phone] * (ABNORMAL) CBC W AUTO DIFFERENTIAL (02/23/2023 1:57 AM CDT) Only the most recent of5 resultswithin the time period is included. WBC 6.8 3.5 - 10.5 10 3/uL 02/23/2023 2:24 AM [facility] RBC 3.05(L) 4.30 - 5.70 10 6/uL 02/23/2023 2:24 AM [facility] Hemoglobin 8.1(L) 12.0 - 17.6 g/dL 02/23/2023 2:24 AM [facility] Hematocrit 24.9(L) 35.2 - 51.7 % 02/23/2023 2:24 AM [facility] MCV 81.6 80.7 - 98.3 fL 02/23/2023 2:24 AM [facility] MCH 26.6(L) 26.7 - 34.0 pg 02/23/2023 2:24 AM [facility] MCHC 32.5 30.8 - 35.9 g/dL 02/23/2023 2:24 AM [facility] RDW-SD 46.2 36.0 - 50.0 fL 02/23/2023 2:24 AM [facility] RDW-CV 15.5(H) 11.2 - 14.8 % 02/23/2023 2:24 AM [facility] Platelet Count 108(L) 150 - 400 10 3/uL 02/23/2023 2:24 AM [facility] MPV 11.5 9.4 - 12.9 fL 02/23/2023 2:24 AM [facility] Immature Platelet Fraction 4.3 1.1 - 6.2 % 02/23/2023 2:24 AM [facility] nRBC Absolute 0.00 0 10 3/uL 02/23/2023 2:24 AM [facility] nRBC Auto 0.0 0 /100 WBC 02/23/2023 2:24 AM [facility] Blood BLOOD SPECIMEN / Unknown Lab Venipuncture / Unknown 02/23/2023 1:57 AM CDT 02/23/2023 2:12 AM CDT Mirza Sanchez MD LAB - HEMATOLOGY ORD ERABLES [facility] [address] [place] [phone], [facility] [phone] * (ABNORMAL) COMPREHENSIVE METABOLIC PANEL (02/23/2023 1:57 AM CDT) Only the most recent of6 resultswithin the time period is included. BUN 25 7 - 26 mg/dL 02/23/2023 2:48 AM [facility] Creatinine 1.16 0.71 - 1.16 mg/dL 02/23/2023 2:48 AM [facility] Sodium 134(L) 136 - 145 mmol/L 02/23/2023 2:48 AM [facility] Potassium 4.0 3.5 - 4.5 mmol/L 02/23/2023 2:48 AM [facility] Chloride 100 98 - 107 mmol/L 02/23/2023 2:48 AM [facility] CO2 24 22 - 29 mmol/L 02/23/2023 2:48 AM [facility] Glucose 100 70 - 115 mg/dL 02/23/2023 2:48 AM [facility] Calcium 8.6 8.4 - 10.2 mg/dL 02/23/2023 2:48 AM [facility] Protein Total 6.0 6.0 - 8.3 g/dL 02/23/2023 2:48 AM [facility] Albumin 2.6(L) 3.4 - 5.0 g/dL 02/23/2023 2:48 AM [facility] Bilirubin Total 0.7 0.2 - 1.2 mg/dL 02/23/2023 2:48 AM [facility] Alkaline Phosphatase 51 40 - 150 U/L 02/23/2023 2:48 AM [facility] ALT <5(L) 5 - 55 U/L 02/23/2023 2:48 AM [facility] AST 21 5 - 34 U/L 02/23/2023 2:48 AM [facility] Anion Gap 14 8 - 18 02/23/2023 2:48 AM [facility] BUN/Creatinine Ratio 22 7 - 23 02/23/2023 2:48 AM [facility] Osmolality Calculated 282 270 - 300 mOsm/kg 02/23/2023 2:48 AM [facility] Albumin/Globulin Ratio 0.8(L) 1.1 - 2.3 02/23/2023 2:48 AM [facility] eGFR by CKD-EPI 62(L) >=90 mL/min/1.7 3 m2 02/23/2023 2:48 AM [facility] Blood BLOOD SPECIMEN / Unknown Lab Venipuncture / Unknown 02/23/2023 1:57 AM CDT 02/23/2023 2:12 AM T Mirza Sanchez MD LAB - CHEMISTRY ALIE PAYAN [facility] Organization Address City/State/ZIP Co de Phone Number [facility] [address] [place] [address], [facility] [phone] * PHOSPHORUS BLOOD (02/23/2023 1:57 AM CDT) Only the most recent of4 resultswithin the time period is included. Phosphorus 3.0 2.8 - 5.1 mg/dL 02/23/2023 2:48 AM CDT [facility] Blood BLOOD SPECIMEN / Unknown Lab Venipuncture / Unknown 02/23/2023 1:57 AM CDT 02/23/2023 2:12 AM CDT Mirza Sanchez MD LAB - CHEMISTRY ALIE PAYAN Performing Organization Address City/[facility]/ZIP Co de Phone Number [address] [address], [facility] [phone] * (ABNORMAL) CALCIUM IONIZED WHOLE BLOOD (02/21/2023 12:59 AM CDT) Pathologist [facility] Calcium Ionized 1.09 mmol/L 02/21/2023 1:36 AM CDT [facility] pH 7.53(H) 7.35 - 7.45 pH 02/21/2023 1:36 AM CDT [facility] Ionized Calcium pH Adjusted 1.15(L) 1.19 - 1.34 mmol/L 02/21/2023 1:36 AM CDT [facility] Blood BLOOD SPECIMEN / Unknown Lab Venipuncture / Unknown 02/21/2023 12:59 AM CDT 02/21/2023 1:32 AM CDT Miguel Angel Hdez MD LAB - CHEMISTRY ALIE PAYAN Performing Organization Address City/[facility]/ZIP Co de Phone Number [address] [address], [facility] [phone] * TSH REFLEX FREE T4 (02/21/2023 12:59 AM CDT) TSH 0.586 0.350 - 4.940 uIU/mL 02/21/2023 2:33 AM CDT [facility] Blood BLOOD SPECIMEN / Unknown Lab Venipuncture / Unknown 02/21/2023 12:59 AM CDT 02/21/2023 1:34 AM CDT Miguel Angel Hdez MD LAB - CHEMISTRY ALIE PAYAN [address] [address], [facility] [phone] * (ABNORMAL) VITAMIN D 25-HYDROXY (02/21/2023 12:59 AM CDT) Vitamin D, 25 Hydroxy 25.0(L) 30.0 - 80.0 ng/mL 02/21/2023 2:33 AM CDT [facility] Comment: The recommendations for 25-Hydroxy Vitamin D clinical decision points are as follows: Deficient: <20.0 ng/mL Insufficient: 20.0 - 29.9 ng/mL Sufficient: 30.0 - 100.0 ng/mL Potential Toxicity: >100 ng/mL Reference: The Endocrine Society Clinical Practice Guidelines. 2011 If the 25-Hydroxy Vitamin D results are inconsitent with clinical evidence, it is recommended that follow-up testing using a method such as LC/MS/MS be performed to confirm the result. Blood BLOOD SPECIMEN / Unknown Lab Venipuncture / Unknown 02/21/2023 12:59 AM CDT 02/21/2023 1:34 AM CDT Miguel Angel Hdez MD LAB - CHEMISTRY ALIE PAYAN Performing Organization Address City/[facility]/ZIP Co de Phone Number [address] [address], [facility] [phone] * FOLATE (02/21/2023 12:59 AM CDT) Folate 9.1 7.0 - 31.4 ng/mL 02/21/2023 2:33 AM CDT [facility] Blood BLOOD SPECIMEN / Unknown Lab Venipuncture / Unknown 02/21/2023 12:59 AM CDT 02/21/2023 1:34 AM CDT Miguel Angel Hdez MD LAB - CHEMISTRY ALIE PAYAN [address] [address], [place] [phone] * VITAMIN B12 (02/21/2023 12:59 AM CDT) Vitamin B12 346 213 - 816 pg/mL 02/21/2023 2:33 AM CDT [facility] Blood BLOOD SPECIMEN / Unknown Lab Venipuncture / Unknown 02/21/2023 12:59 AM CDT 02/21/2023 1:34 AM CDT Miguel Angel Hdez MD LAB - CHEMISTRY ALIE PAYAN [facility] [address] [place] [address], [place] [phone] * (ABNORMAL) IRON + TRANSFERRIN PANEL (02/21/2023 12:59 AM CDT) Iron 21(L) 50 - 175 ug/dL 02/21/2023 2:01 AM CDT [facility] Transferrin 128(L) 174 - 382 mg/dL 02/21/2023 2:01 AM CDT [facility] Transferrin Saturation % 13(L) 16 - 50 % 02/21/2023 2:01 AM CDT [facility] TIBC Calculated 160(L) 240 - 450 ug/dL 02/21/2023 2:01 AM CDT [facility] Blood BLOOD SPECIMEN / Unknown Lab Venipuncture / Unknown 02/21/2023 12:59 AM CDT 02/21/2023 1:32 AM CDT Miguel Angel Hdez MD LAB - CHEMISTRY ALIE PAYAN [facility] [address] [place] [address], [place] [phone] * FERRITIN (02/21/2023 12:59 AM CDT) Ferritin 135 22 - 275 ng/mL 02/21/2023 2:20 AM CDT [facility] Blood BLOOD SPECIMEN / Unknown Lab Venipuncture / Unknown 02/21/2023 12:59 AM CDT 02/21/2023 1:32 AM CDT Miguel Angel Hdez MD LAB - CHEMISTRY ORDMaverick PAYAN Performing Organization Address [facility] Co de Phone Number [facility] [address] [place] [address], [facility] [phone] * (ABNORMAL) POTASSIUM BLOOD (02/20/2023 10:01 AM CDT) Potassium 3.0(L) 3.5 - 4.5 mmol/L 02/20/2023 10:44 AM CDT [facility] Blood BLOOD SPECIMEN / Unknown Venipuncture / Unknown 02/20/2023 10:01 AM CDT 02/20/2023 10:13 AM CDT Heath Armstrong MD LAB - CHEMISTRY ALIE CAMERONG[place]HO Performing Organization Address [facility] Co de Phone Number [address] [address], [facility] [phone] * FL RODNEY SURGERY (02/20/2023 4:54 AM CDT) Narrative [facility] RAD[facility] - 02/20/2023 4:55 AM CDT Fluoroscopy was used for this exam in the OR. Please see the Operative report. Raj Rachel MD FLUOROSCOPY ORDERABL ES Performing Organization Address [facility] Co de Phone Number [facility] * ETT LINE PERFORMABLE (02/20/2023 4:02 AM CDT) Narrative Sarbjit Colon DO - 02/20/2023 4:02 AM CDT Sarbjit Colon DO 02/20/2023 4:03 AM Endotracheal Tube Placement: Patient Location: OR. Intubation Event Date/Time: 02/20/2023 3:41 AM Procedure: intubation ([id number]). Procedure Section: Sedation: under general anesthesia. Indications for Airway Management: anesthesia Induction: standard IV Patient Position: sniffing and supine Mask Ventilation: easy with oral airway. Blade Type: Erin Blade Size: 4 Laryngoscopy View: grade 2 (partial cords) Intubation Adjuncts: stylet Tube: endotracheal tube Placement: oral Tube type: cuff - inflated Tube Size (MM): 8 Depth of Insertion (CM): 23 Measured From: lips Cuff Inflated With: air Number of Attempts: 1. Placement Verified By: direct visualization, bilateral breath sounds, chest auscultation and CO2 monitor Tube secured with: adhesive tape. Difficult Airway? No. Procedure Start Time: 02/20/2023 3:41 AM. Staff Section Anesthesia Provider: Hunter Dumont MD Provider #1: Sarbjit Colon DO, Performed the procedure. Hunter Dumont MD GENERAL ANESTHESI A ORDERABLES * CT PELVIS WO CONTRAST (02/19/2023 10:55 PM CDT) Anatomical Region Laterality Modality Pelvis Computed Tomogra phy 02/19/2023 11:0 3 PM CDT Impressions 02/20/2023 7:40 AM CDT IMPRESSION: Acute impacted fracture of the right intertrochanteric femur with mild extension into the basicervical region and varus angulation. Report dictated by Chele Thompson MD (residential leasing manager). I, Marco Antonio Flaherty MD have personally reviewed and interpreted this examination/study. > Interpreting Provider: Marco Antonio Flaherty MD on 02/20/2023 7:40 AM Narrative 02/20/2023 7:40 AM CDT PROCEDURE: CT PELVIS WO CONTRAST DATE/TIME OF EXAM: 02/19/2023 10:56 PM CLINICAL INFORMATION: None relevant/not provided if blank. Indication: S72.001A: Closed fracture of neck of right femur, initial encounter ([facility]) Additional History: COMPARISON: right femur radiograph dated 02/19/2023 TECHNIQUE: CT of the pelvis was performed utilizing standard protocol. CT dose reduction technique was used, including Automated Exposure Control. FINDINGS: There is an acute, impacted fracture of the right intertrochanteric femur extending slightly into the base of the neck with varus angulation. There is mild surrounding soft tissue edema and blood products. 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 Degenerative changes also present in the lower lumbar spine and sacroiliac joints. 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 Atherosclerotic calcifications are present in the abdominal aorta and its branches. The right kidney is absent. The left kidney is grossly normal. Sigmoid diverticulosis with focal mural thickening is present and may represent sequela of prior diverticulitis. The urinary bladder is distended and demonstrates multiple diverticula which may reflect chronic outlet obstruction. The prostate is mildly enlarged measuring 4.9 cm in transverse dimension. Procedure Note Marco Antonio Flaherty MD - 02/20/2023 PROCEDURE: CT PELVIS WO CONTRAST DATE/TIME OF EXAM: 02/19/2023 10:56 PM CLINICAL INFORMATION: None relevant/not provided if blank. Indication: S72.001A: Closed fracture of neck of right femur, initial encounter ([facility]) Additional History: COMPARISON: right femur radiograph dated 02/19/2023 TECHNIQUE: CT of the pelvis was performed utilizing standard protocol. CT dose reduction technique was used, including Automated ExposureControl. FINDINGS: There is an acute, impacted fracture of the right intertrochantericfemur extending slightly into the base of the neck with varus angulation.There is mild surrounding soft tissue edema and blood products. 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 Degenerative changes also present in the lower lumbar spine and sacroiliac joints. 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 Atherosclerotic calcifications are present in the abdominal aorta andits branches. The right kidney is absent. The left kidney is grossly normal. Sigmoid diverticulosis with focal mural thickening is present and may represent sequela of prior diverticulitis. The urinary bladder isdistended and demonstrates multiple diverticula which may reflect chronic outlet obstruction. The prostate is mildly enlarged measuring 4.9 cm intransverse dimension. IMPRESSION: Acute impacted fracture of the right intertrochanteric femur with mild extension into the basicervical region and varus angulation. Report dictated by Chele Thompson MD (residential leasing manager). I, Marco Antonio Flaherty MD have personally reviewed and interpreted this examination/study. > Interpreting Provider: Marco Antonio Flaherty MD on 02/20/2023 7:40 AM Mirza Sanchez MD CT ORDERABLES * EKG 12-LEAD (02/19/2023 9:31 PM CDT) Only the most recent of2 resultswithin the time period is included. Ventricular Rate 80 BPM [facility] QRS Duration ms 120 ms [facility] Q-T Interval ms 444 ms [facility] QTC Calculation (Bezet) 512 ms [facility] Calculated R [place] -54 degrees [facility] Calculated T [place] 34 degrees [facility] Interpretation EKG WIDE QRS RHYTHM LEFT AXIS DEVIATION RIGHT BUNDLE BRANCH BLOCK MINIMAL VOLTAGE CRITERIA FOR LVH, MAY BE NORMAL VARIANT ( R in aVL ) INFERIOR INFARCT , AGE UNDETERMINED ANTERIOR INFARCT , AGE UNDETERMINED ABNORMAL ECG NO PREVIOUS ECGS AVAILABLE Confirmed by Kassandra Hicks ([id number]) on 02/27/2023 1:49:28 AM H MUSE 02/19/2023 9:31 PM CDT 02/27/2023 1:49 AM CDT Mirza Sanchez MD ECG ORDERABLES [facility] MUSE * XR CHEST 1VW PORTABLE (02/19/2023 7:24 PM CDT) Anatomical Region Laterality Modality Chest Radiographic Velia ging 02/19/2023 8:18 PM CDT Narrative 02/20/2023 11:24 PM CDT PROCEDURE: XR CHEST 1VW PORTABLE, DATE/TIME OF EXAM: 02/19/2023 7:24 PM, LOCATION [facility] INDICATION: W19.XXXA: Fall, initial encounter Ordering Provider Reason For Exam: fall COMPARISON: None. FINDINGS/IMPRESSION: Lungs are clear. There is no pleural effusion pleural effusion. No pneumothorax is identified. The cardiomediastinal silhouette is unremarkable, other than atherosclerosis of the thoracic aorta. The visible bony thorax is intact. Report dictated by Andrey Dolan MD (residential leasing manager). I, Jose Roberto Wiggins MD have personally reviewed and interpreted this examination/study. > Interpreting Provider: Jose Roberto Wiggins MD on 02/20/2023 11:24 PM Procedure Note Jose Roberto Wiggins MD - 02/20/2023 PROCEDURE: XR CHEST 1VW PORTABLE, DATE/TIME OF EXAM: 02/19/2023 7:24PM, LOCATION [facility] INDICATION: W19.XXXA: Fall, initial encounter Ordering Provider Reason For Exam: fall COMPARISON: None. FINDINGS/IMPRESSION: Lungs are clear. There is no pleural effusion pleural effusion. No pneumothorax is identified. The cardiomediastinal silhouette is unremarkable, other than atherosclerosis of the thoracic aorta. The visible bony thorax is intact. Report dictated by Andrey Dolan MD (residential leasing manager). Jose Roberto Peña MD have personally reviewed and interpreted this examination/study. > Interpreting Provider: Jose Roberto Wiggins MD on 02/20/2023 11:24 PM Mirza Sanchez MD DIAGNOSTIC IMAGING O RDERABLES * XR PELVIS W RIGHT HIP 2VW (02/19/2023 7:23 PM CDT) Anatomical Region Laterality Modality Pelvis Radiographic Velia ging 02/19/2023 8:08 PM CDT Impressions 02/21/2023 12:20 AM CDT IMPRESSION: Acute impacted fracture of right femoral neck. This study was dictated by residential leasing manager Andrey Dolan MD and reviewed and edited by the attending. Casey Peña MD have personally reviewed and interpreted this examination/study. > Interpreting Provider: Casey Thomas MD on 02/21/2023 12:20 AM Narrative 02/21/2023 12:20 AM CDT PROCEDURE: XR PELVIS W RIGHT HIP 2VW, XR KNEE RIGHT 2VW OR LESS, XR FEMUR RIGHT 2VW DATE/TIME OF EXAM: 02/19/2023 7:23 PM Indication: W19.XXXA: Fall, initial encounter COMPARISON: None. FINDINGS: Pelvis with right hip: Suggestion of impacted fracture of right femoral neck. The femoral heads appear well-seated within their respective acetabula. Right greater than left moderate degenerative changes of bilateral hip joints. The pubic symphysis is intact. Bone density and texture are normal. The sacroiliac joints are normal. Right femur: There is no fracture or osseous abnormality in distal femur. Severe tricompartmental degenerative changes of knee joint. The joint alignment is otherwise normal. Diffuse vascular atherosclerosis. Right knee: There is no fracture or osseous abnormality. Severe knee joint osteoarthritis as described above. Suprapatellar joint effusion is present. Diffuse vascular atherosclerosis. Procedure Note Casey Thomas MD - 02/21/2023 PROCEDURE: XR PELVIS W RIGHT HIP 2VW, XR KNEE RIGHT 2VW OR LESS, XRFEMUR RIGHT 2VW DATE/TIME OF EXAM: 02/19/2023 7:23 PM Indication: W19.XXXA: Fall, initial encounter COMPARISON: None. FINDINGS: Pelvis with right hip: Suggestion of impacted fracture of right femoral neck. The femoral heads appear well-seated within their respective acetabula. Right greater than left moderate degenerative changes of bilateral hip joints. The pubic symphysis is intact. Bone density and texture are normal. The sacroiliac joints are normal. Right femur: There is no fracture or osseous abnormality in distal femur. Severe tricompartmental degenerative changes of knee joint. The joint alignmentis otherwise normal. Diffuse vascular atherosclerosis. Right knee: There is no fracture or osseous abnormality. Severe knee joint osteoarthritis as described above. Suprapatellar joint effusion ispresent. Diffuse vascular atherosclerosis. IMPRESSION: Acute impacted fracture of right femoral neck. This study was dictated by residential leasing manager Andrey Dolan MD and reviewed and edited by the attending. Casey Peña MD have personally reviewed and interpreted this examination/study. > Interpreting Provider: Casey Thomas MD on 02/21/2023 12:20 AM Mirza Sanchez MD DIAGNOSTIC IMAGING O RDERABLES * XR KNEE RIGHT 2VW OR LESS (02/19/2023 7:23 PM CDT) Anatomical Region Laterality Modality Lower Extremity Radiographic Velia ging 02/19/2023 8:08 PM CDT Impressions 02/21/2023 12:20 AM CDT IMPRESSION: Acute impacted fracture of right femoral neck. This study was dictated by residential leasing manager Andrey Dolan MD and reviewed and edited by the attending. Casey Peña MD have personally reviewed and interpreted this examination/study. > Interpreting Provider: Casey Thomas MD on 02/21/2023 12:20 AM Narrative 02/21/2023 12:20 AM CDT PROCEDURE: XR PELVIS W RIGHT HIP 2VW, XR KNEE RIGHT 2VW OR LESS, XR FEMUR RIGHT 2VW DATE/TIME OF EXAM: 02/19/2023 7:23 PM Indication: W19.XXXA: Fall, initial encounter COMPARISON: None. FINDINGS: Pelvis with right hip: Suggestion of impacted fracture of right femoral neck. The femoral heads appear well-seated within their respective acetabula. Right greater than left moderate degenerative changes of bilateral hip joints. The pubic symphysis is intact. Bone density and texture are normal. The sacroiliac joints are normal. Right femur: There is no fracture or osseous abnormality in distal femur. Severe tricompartmental degenerative changes of knee joint. The joint alignment is otherwise normal. Diffuse vascular atherosclerosis. Right knee: There is no fracture or osseous abnormality. Severe knee joint osteoarthritis as described above. Suprapatellar joint effusion is present. Diffuse vascular atherosclerosis. Procedure Note Casey Thomas MD - 02/21/2023 PROCEDURE: XR PELVIS W RIGHT HIP 2VW, XR KNEE RIGHT 2VW OR LESS, XRFEMUR RIGHT 2VW DATE/TIME OF EXAM: 02/19/2023 7:23 PM Indication: W19.XXXA: Fall, initial encounter COMPARISON: None. FINDINGS: Pelvis with right hip: Suggestion of impacted fracture of right femoral neck. The femoral heads appear well-seated within their respective acetabula. Right greater than left moderate degenerative changes of bilateral hip joints. The pubic symphysis is intact. Bone density and texture are normal. The sacroiliac joints are normal. Right femur: There is no fracture or osseous abnormality in distal femur. Severe tricompartmental degenerative changes of knee joint. The joint alignmentis otherwise normal. Diffuse vascular atherosclerosis. Right knee: There is no fracture or osseous abnormality. Severe knee joint osteoarthritis as described above. Suprapatellar joint effusion ispresent. Diffuse vascular atherosclerosis. IMPRESSION: Acute impacted fracture of right femoral neck. This study was dictated by residential leasing manager Andrey Dolan MD and reviewed and edited by the attending. I, Casey Thomas MD have personally reviewed and interpreted this examination/study. > Interpreting Provider: Casey Thomas MD on 02/21/2023 12:20 AM Mirza Sanchez MD DIAGNOSTIC IMAGING O RDERABLES * XR KNEE RIGHT 3VW (03/05/2022 2:53 PM CDT) Anatomical Region Laterality Modality Lower Extremity Computed Radiogr aphy Narrative 03/05/2022 2:54 PM CDT Bob Mcclendon 03/06/2022 10:05 AM See progress notes for patient results. Diamante Rios PA-C DIAGNOSTIC IMAGING ORDERABLES * URINALYSIS AUTO - POINT OF CARE (AMB) [facility] (03/20/2021 9:07 AM CDT) Only the most recent of2 resultswithin the time period is included. Glucose UA neg Bilirubin UA POCT neg Ketones UA POCT neg Specific [place]augh UA 1.025 Blood Urine POCT neg pH UA 6.0 Protein UA 100 Urobilinogen UA 0.2 Nitrite UA neg WBC UA neg Urine URINE / Unknown 03/20/2021 9 :07 AM CDT Pallavi Hernandez APRN-MIGRATORY GAME BIRD BIOLOGIST LAB - POINT O F CARE ORDERABLES * MI MSR PVR U&/BLADD CAPCTY US NON (02/06/2021 10:05 AM CDT) Narrative Matilde Schilling - 02/06/2021 10:05 AM CDT Matilde Schilling 02/06/2021 3:59 PM Bladder scan completed. 108ml post void residual. Pallavi Hernandez DIRECTOR OF CODING-MIGRATORY GAME BIRD BIOLOGIST PROCEDURE/MIN OR SURGICAL ORDERABLES Care Teams Wharf Tender Relationship Specialty Start Date End Date Steven Queen DO [address] [facility] [address] [place] [id number] PCP - General Internal Medicine 06/14/22 [place] [address] [facility] [address] [address] Orthopedic Surgery 06/14/22
--- OUTSIDE RECORDS SUMMARY | 2024-12-13 18:31 | XMS_ITS | Encounter Summary ---
Author Organization [facility] Address [address] [place] [address] Phone Care Team Providers Care Delimber Operator Name Role Phone Juan Diego Hennessy MD Unavailable [phone] Kale Jiménez MD Primary Care Provider [phone] Joe Smith MD Unavailable [phone] Lucio Pagan APRN, CNP Unavailable + [phone] Reason for Visit * Reason Comments Medication Refill Encounter Details Date Type Department Care Team (Late st Contact Info) Description 05/26/2021 Refill [facility] [address] [address] Juan Diego Hennessy MD [address] [place] [id number] Medication Refill Social History Tobacco Use Types Packs/Day Years Used Date Smoking Tobacco: Never Smokeless Tobacco: Never Alcohol Use Standard Drinks/Week Comments Never 0 (1 standard drink = 0.6 oz pur e alcohol) AUDIT-C Answer Date Recorded Frequency of Alcohol Consumption Never 02/18/2019 Average Number of Drinks Not on file 019 Frequency of Binge Drinking Not on file 01/26 PHQ-2 Answer Date Recorded Total Score - Questions 1-9 0 07/0 10/2020 Sex and Gender Information Value Date Recorded Sex Assigned at Not on file Legal Sex Male 7:58 PM CDT Gender Identity Not on file Sexual Orientation Not on file COVID-19 Exposure Response Date Recorded In the last month, have you been in contact with someone who was confirmed or suspected to have Coronavirus / COVID-19? No / Unsure 04/26/2021 9:03 AM CDT documented as of this encounter Miscellaneous Notes * Telephone Encounter - Beverly Batres LPN - 05/28/2021 8:18 AM CDT Please refill if appropriate. documented in this encounter Plan of Treatment Not on file documented as of this encounter Visit Diagnoses Not on filedocumented in this encounter Additional Health Concerns Assessment Noted Time PHQ-9 Depression Total Score: 0 04/26/20 21 9:16 AM CDT documented as of this encounter Care Teams Delimber Operator Relationship Specialty Start Date End Date Kale Jiménez MD [address], [address] [place] [address] PCP - General Internal Medicine 11/03/19 Juan Diego Hennessy MD [address] [place] [phone] Consulting Physician Oncology 11/03/19 Joe Smith MD [address], [address] [place] [address] Nephrology 11/11/19 Lucio Pagan APRN, HABILITATION ASSISTANT [address] [place] [address] Nurse Practitioner Advanced Practice Nurse 10/06/23 documented as of this encounter
--- OUTSIDE RECORDS SUMMARY | 2024-12-13 18:31 | XMS_ITS | Encounter Summary ---
Author Organization [facility] Address [address] [place] [address] Phone Care Team Providers Care Storm Chaser Name Role Phone Juan Diego Hennessy MD Unavailable [phone] Kale Jiménez MD Primary Care Provider [phone] Joe Smith MD Unavailable [phone] Lucio Pagan APRN, CNP Unavailable + [phone] Reason for Visit * Reason Comments Medication Refill Encounter Details Date Type Department Care Team (Late st Contact Info) Description 11/09/2022 Refill [facility] [address] [phone] Juan Diego Hennessy MD [address] [address] Medication Refill Social History Tobacco Use [...] Recorded Total Score - Questions 1-9 0 /0 05/2022 Sex and Gender Information Value Date Recorded Sex Assigned at Not on file Legal Sex Male 7:58 PM CDT Gender Identity Not on file Sexual Orientation Not on file documented as of this encounter Miscellaneous Notes * Telephone Encounter - Elvia Boucher - 11/11/2022 8:47 AM CST Please refill if appropriate. ICAL APPLIANCE FITTER documented in this encounter Plan of Treatment Not on file documented as of this encounter Visit Diagnoses Diagnosis CLL (chronic lymphocytic leukemia) (HCC) Chronic lymphoid leukemia, without mention of having achieved remission documented in this encounter Additional Health Concerns Assessment Noted Time PHQ-9 Depression Total Score: 0 07/26/20 21 9:20 AM CDT documented as of this encounter Care Teams Storm Chaser Relationship Specialty Start Date End Date Kale Jiménez MD [address], [address] [place] [address] PCP - General Internal Medicine 11/03/19 Juan Diego Hennessy MD [address] [place] [phone] Consulting Physician Oncology 11/03/19 Joe Smith MD [address], [address] [place] [address] Nephrology 11/11/19 Lucio Pagan, CLINICAL RESEARCH ANALYST, FINANCE AND ADMINISTRATION MANAGER [address] [place] [address] Nurse Practitioner Advanced Practice Nurse 10/06/23 documented as of this encounter
--- OUTSIDE RECORDS SUMMARY | 2024-12-13 18:31 | XMS_ITS ---
Author Organization [facility] Address Unknown Allergies, Adverse Reactions, Alerts Substance Reaction Status Noted Date Resolved Date Neomycin active 03/22/2023 Fish-derived Products resolved 03/21/2023 Fish Oil active 03/22/2023 Erythromycin resolved 03/21/2023 03/21/2023 Erythromycin active 03/22/2023 Codeine Nausea active 03/21/2023 Codeine resolved 03/21/2023 03/21/2023 Codeine Nausea resolved 03/21/2023 03/21/2023 Hyrum Oil Nausea active 03/21/2023 Problems Problem Status Start Date End Date FRACTURE OF UNSPECIFIED PART OF NECK OF RIGHT FEMUR, SUBSEQUENT ENCOUNTER FOR CLOSED FRACTURE WITH ROUTINE HEALING (Primary) (S72.001D - ICD-10-CM) ACTIVE 03/21/2023 ENCOUNTER FOR OTHER ORTHOPED IC AFTERCARE (Z47.89 - ICD-10-CM) ACTIVE 03/21/2023 CHRONIC OBSTRUCTIVE PULMONAR Y DISEASE, UNSPECIFIED (J44.9 - ICD-10-CM) ACTIVE 03/21/2023 PARKINSON'S DISEASE (G20 - ICD-10-CM) ACTIVE OBSTRUCTIVE SLEEP APNEA (KASSY LT) (PEDIATRIC) (G47.33 - ICD-10-CM) ACTIVE 03/21/2023 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-CM) A CTIVE 03/21/2023 HYPOTHYROIDISM, UNSPECIFIED (E03.9 - ICD-10-CM) ACTIVE 03/21/2023 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 (N40.0 - ICD-10-CM) ACTIVE 03/21/2023 ESSENTIAL (PRIMARY) HYPERTENSION (I10 - ICD-10-CM) ACT GAYATHRI 03/21/2023 CHRONIC KIDNEY DISEASE, STAGE 3A (N18.31 - ICD-10-CM) ACTIVE 03/21/2023 MUSCLE WEAKNESS (GENERALIZED) (M62.81 - ICD-10-CM) ACT GAYATHRI 05/26/2023 UNSPECIFIED LACK OF COORDINATION (R27.9 - ICD-10-CM) A CTIVE 05/26/2023 DIFFICULTY IN WALKING, NOT E LSEWHERE CLASSIFIED (R26.2 - ICD-10-CM) ACTIVE 05/26/2023 TINEA PEDIS (B35.3 - ICD-10-CM) ACTIVE 3 URINARY TRACT INFECTION, SIT E NOT SPECIFIED (N39.0 - ICD-10-CM) ACTIVE 03/27/2023 PRIMARY OSTEOARTHRITIS, UNSP ECIFIED SITE (M19.91 - ICD-10-CM) ACTIVE 03/27/2023 GASTRO-ESOPHAGEAL REFLUX DIS EASE WITHOUT ESOPHAGITIS (K21.9 - ICD-10-CM) ACTIVE 03/27/2023 HYPERLIPIDEMIA, UNSPECIFIED (E78.5 - ICD-10-CM) ACTIVE 03/27/2023 DEPRESSION, UNSPECIFIED (F32.A - ICD-10-CM) ACTIVE 03/27/2023 PNEUMONIA, UNSPECIFIED ORGANISM (J18.9 - ICD-10-CM) AC TIVE 03/27/2023 BENIGN PROSTATIC HYPERPLASIA WITH LOWER URINARY TRACT SYMPTOMS (N40.1 - ICD-10-CM) ACTIVE 03/27/2023 INFLUENZA DUE TO OTHER IDENT IFIED INFLUENZA VIRUS WITH OTHER RESPIRATORY MANIFESTATIONS (J10.1 - ICD-10-CM) ACTIVE 023 REPEATED FALLS (R29.6 - ICD-10-CM) ACTIVE 2022 DISPLACED FRACTURE OF BASE O F NECK OF RIGHT FEMUR, SUBSEQUENT ENCOUNTER FOR CLOSED FRACTURE WITH ROUTINE HEALING (S72.041D - ICD-10-CM) ACTIVE 03/21/2023 Results * UTO-PATIENT DISCHARGED Performed by: [address], [address] [place] [id number] Component Value Range Date TEST NAME CBCD 08/06/2023 07:0 4 pm EDT PATIENT DISCHARGED * 3 07:04 pm EDT * UTO-PATIENT DISCHARGED Performed by: [address], [address] [place] [id number] Component Value Range Date TEST NAME CBC 07/30/2023 07:0 8 pm EDT PATIENT DISCHARGED * 3 07:08 pm EDT * UTO-PATIENT DISCHARGED Performed by: [address], [address] [address] Component Value Range Date TEST NAME CBC W/DIFF 07/23/2023 03:0 0 pm EDT PATIENT DISCHARGED * 3 03:00 pm EDT * UTO-PATIENT DISCHARGED Performed by: [address], [address] [id number] Component Value Range Date TEST NAME CBC 06/25/2023 01:0 1 pm EDT PATIENT DISCHARGED * 3 01:01 pm EDT * UTO-PATIENT DISCHARGED Performed by: [address], [address] [address] Component Value Range Date TEST NAME CBCD 06/18/2023 03:2 3 pm EDT PATIENT DISCHARGED * 3 03:23 pm EDT * UTO-PATIENT DISCHARGED Performed by: [address], [address] [address] Component Value Range Date TEST NAME CBC W/DIFF 06/04/2023 05:1 6 pm EDT PATIENT DISCHARGED * 3 05:16 pm EDT * UTO-PATIENT DISCHARGED Performed by: [address], [address] [address] Component Value Range Date TEST NAME CBC W/DIFF 05/28/2023 05:1 3 pm EDT PATIENT DISCHARGED * 3 05:13 pm EDT * CBC W/DIFF Performed by: [address], [address] [address] Component Value Range Date ANISOCYTOSIS 1+ NEGATIVE 05/21/2023 07:0 6 pm EDT NEUTS (ABSOLUTE) 5.30 K/uL 1.50-7.60 05/21/2023 07:06 pm EDT EOS (ABSOLUTE) 0.20 K/uL 0.20-0.80 05/21/2023 07 :06 pm EDT MONOCYTES (ABSOLUTE) 0.70 K/uL 0.15-1.10 023 07:06 pm EDT MPV 9.7 fL 6.5-12.0 05/21/2023 07:0 6 pm EDT NUCLEATED RBC 0.2 NRBC/100 WBC <1.0 05/21/2023 07:06 pm EDT HEMOGLOBIN 11.1 g/dL 14.0-18.0 05/21/2023 07:0 6 pm EDT RBC 4.09 M/cmm 4.00-6.60 05/21/2023 07:0 6 pm EDT MCHC 32.7 g/dL 31.0-36.5 05/21/2023 07:0 6 pm EDT MCH 27.1 pg 26.0-35.0 05/21/2023 07:0 6 pm EDT HEMATOCRIT 33.9 % 42.0-54.0 05/21/2023 07:0 6 pm EDT WBC 9.5 K/cmm 4.5-10.8 05/21/2023 07:0 6 pm EDT PLATELET 165 K/cmm 150-450 05/21/2023 07:0 6 pm EDT RDW 17.6 % 11.0-16.0 05/21/2023 07:0 6 pm EDT NEUTROPHILS 55.2 % 40.0-80.0 05/21/2023 07:0 6 pm EDT BASO (ABSOLUTE) 0.10 K/uL 0.00-0.30 05/21/2023 0 7:06 pm EDT MCV 82.8 fL 80.0-100.0 05/21/2023 07:0 6 pm EDT LYMPHS (ABSOLUTE) 3.30 K/uL 0.90-5.50 05/21/2023 07:06 pm EDT MONOCYTES 7.2 % 2.0-12.0 05/21/2023 07:0 6 pm EDT LYMPHS 34.4 % 13.0-48.0 05/21/2023 07:0 6 pm EDT BASO 0.8 % 0.0-2.0 05/21/2023 07:0 6 pm EDT EOS 2.4 % 0.0-8.0 05/21/2023 07:0 6 pm EDT * CBC W/DIFF Performed by: [facility] [address] [facility], [address] [facility] [address] Component Value Range Date BASO 0.7 % 0.0-2.0 05/14/2023 07:0 6 pm EDT LYMPHS 38.3 % 13.0-48.0 05/14/2023 07:0 6 pm EDT MONOCYTES 5.2 % 2.0-12.0 05/14/2023 07:0 6 pm EDT BASO (ABSOLUTE) 0.10 K/uL 0.00-0.30 05/14/2023 0 7:06 pm EDT LYMPHS (ABSOLUTE) 3.10 K/uL 0.90-5.50 05/14/2023 07:06 pm EDT MCV 81.7 fL 80.0-100.0 05/14/2023 07:0 6 pm EDT NEUTROPHILS 53.5 % 40.0-80.0 05/14/2023 07:0 6 pm EDT RDW 18.1 % 11.0-16.0 05/14/2023 07:0 6 pm EDT PLATELET 161 K/cmm 150-450 05/14/2023 07:0 6 pm EDT WBC 8.1 K/cmm 4.5-10.8 05/14/2023 07:0 6 pm EDT HEMATOCRIT 30.8 % 42.0-54.0 05/14/2023 07:0 6 pm EDT MCH 26.9 pg 26.0-35.0 05/14/2023 07:0 6 pm EDT MCHC 32.9 g/dL 31.0-36.5 05/14/2023 07:0 6 pm EDT RBC 3.77 M/cmm 4.00-6.60 05/14/2023 07:0 6 pm EDT HEMOGLOBIN 10.1 g/dL 14.0-18.0 05/14/2023 07:0 6 pm EDT MPV 8.8 fL 6.5-12.0 05/14/2023 07:0 6 pm EDT NUCLEATED RBC 0.2 NRBC/100 WBC <1.0 05/14/2023 07:06 pm EDT MONOCYTES (ABSOLUTE) 0.40 K/uL 0.15-1.10 023 07:06 pm EDT EOS 2.3 % 0.0-8.0 05/14/2023 07:0 6 pm EDT EOS (ABSOLUTE) 0.20 K/uL 0.20-0.80 05/14/2023 07 :06 pm EDT NEUTS (ABSOLUTE) 4.30 K/uL 1.50-7.60 05/14/2023 07:06 pm EDT ANISOCYTOSIS 1+ NEGATIVE 05/14/2023 07:0 6 pm EDT * UA W/CULTURE IF INDICATED Performed by: [address], [address] [address] Component Value Range Date UA TO CX TRIGGER CULTURE INDICATED 2022 07:03 pm EDT * Individual Tests: UA W/CULTURE IF INDICATED / CULTURE, URINE Performed by: [address], [address] [address] Component Value Range Date CULTURE, URINE . 05/11/2023 07 :03 pm EDT * UA W/CULTURE IF INDICATED Performed by: [address], [address] [address] Component Value Range Date NITRITE,UR NEGATIVE NEGATIVE 05/11/2023 07:0 3 pm EDT COLOR YELLOW YELLOW 05/11/2023 07:0 3 pm EDT LEUKOCYTES,UR 3+ NEGATIVE 05/11/2023 07: 03 pm EDT BLOOD,UR 1+ NEGATIVE 05/11/2023 07:0 3 pm EDT WBC,UR >50 /HPF <6 05/11/2023 07:0 3 pm EDT PROTEIN,UR 2+ NEGATIVE 05/11/2023 07:0 3 pm EDT RBC,UR 6-20 /HPF <6 05/11/2023 07:0 3 pm EDT GLUCOSE,UR NEGATIVE NEGATIVE 05/11/2023 07:0 3 pm EDT SPECIFIC GRAVITY 1.012 1.001-1.030 05/11/2023 07:03 pm EDT MUCOUS PRESENT ABSENT 05/11/2023 07:0 3 pm EDT UROBILINOGEN,UR NEGATIVE NEGATIVE 05/11/2023 0 7:03 pm EDT EPITHELIAL CELL NEGATIVE NEGATIVE 05/11/2023 0 7:03 pm EDT HYALINE CASTS NEGATIVE NEGATIVE 05/11/2023 07: 03 pm EDT KETONES,UR NEGATIVE NEGATIVE 05/11/2023 07:0 3 pm EDT AMORPHOUS PRESENT ABSENT 05/11/2023 07:0 3 pm EDT BACTERIA,UR FEW NEGATIVE 05/11/2023 07:0 3 pm EDT WBC CLUMPS PRESENT ABSENT 05/11/2023 07:0 3 pm EDT PH, URINE 6.0 5.0-8.5 05/11/2023 07:0 3 pm EDT BILIRUBIN,UR NEGATIVE NEGATIVE 05/11/2023 07:0 3 pm EDT CLARITY CLOUDY CLEAR 05/11/2023 07:0 3 pm EDT * CBC W/DIFF Performed by: [address], [place] [id number] Component Value Range Date NUCLEATED RBC 0.2 NRBC/100 WBC <1.0 05/07/2023 11:03 pm EDT MPV 9.5 fL 6.5-12.0 05/07/2023 11:0 3 pm EDT * CMP-COMPREHENSIVE METABOLIC PNL Performed by: [address], [address] [address] Component Value Range Date CREATININE 1.1 mg/dL 0.7-1.3 05/07/2023 11:0 3 pm EDT GLUCOSE 99 mg/dL 05/07/2023 11:0 3 pm EDT CALCIUM 8.7 mg/dL 8.6-10.3 05/07/2023 11:0 3 pm EDT BILIRUBIN, TOTAL 0.5 mg/dL 0.2-1.2 05/07/2023 11:03 pm EDT * CBC W/DIFF Performed by: [address], [place] [id number] Component Value Range Date ANISOCYTOSIS 1+ NEGATIVE 05/07/2023 11:0 3 pm EDT * CMP-COMPREHENSIVE METABOLIC PNL Performed by: [address], [place] [address] Component Value Range Date A/G RATIO 1.1 0.8-2.0 05/07/2023 11:0 3 pm EDT * CBC W/DIFF Performed by: [address], [place] [address] Component Value Range Date MONOCYTES (ABSOLUTE) 0.50 K/uL 0.15-1.10 023 11:03 pm EDT * CMP-COMPREHENSIVE METABOLIC PNL Performed by: [address], [address] [address] Component Value Range Date BUN/CREATININE RATIO 19 6-25 023 11:03 pm EDT * CBC W/DIFF Performed by: [address], [place] [id number] Component Value Range Date NEUTS (ABSOLUTE) 3.80 K/uL 1.50-7.60 05/07/2023 11:03 pm EDT EOS (ABSOLUTE) 0.20 K/uL 0.20-0.80 05/07/2023 11 :03 pm EDT HEMOGLOBIN 10.4 g/dL 14.0-18.0 05/07/2023 11:0 3 pm EDT * CMP-COMPREHENSIVE METABOLIC PNL Performed by: [address], [place] [id number] Component Value Range Date POTASSIUM 4.4 mEq/L 3.5-5.3 05/07/2023 11:0 3 pm EDT SODIUM 135 mEq/L 136-145 05/07/2023 11:0 3 pm EDT BUN (UREA NITROGEN) 21 mg/dL 7-25 05/07/20 23 11:03 pm EDT CARBON DIOXIDE (CO2) 25 mEq/L 21-33 023 11:03 pm EDT CHLORIDE 101 mEq/L 98-110 05/07/2023 11:0 3 pm EDT * CBC W/DIFF Performed by: [address], [place] [address] Component Value Range Date RBC 3.77 M/cmm 4.00-6.60 05/07/2023 11:0 3 pm EDT MCHC 33.3 g/dL 31.0-36.5 05/07/2023 11:0 3 pm EDT MCH 27.7 pg 26.0-35.0 05/07/2023 11:0 3 pm EDT HEMATOCRIT 31.3 % 42.0-54.0 05/07/2023 11:0 3 pm EDT WBC 7.9 K/cmm 4.5-10.8 05/07/2023 11:0 3 pm EDT * CMP-COMPREHENSIVE METABOLIC PNL Performed by: [address], [place] [address] Component Value Range Date ALT (SGPT) 11 IU/L 4-55 05/07/2023 11:0 3 pm EDT * CBC W/DIFF Performed by: [address], [place] [address] Component Value Range Date PLATELET 164 K/cmm 150-450 05/07/2023 11:0 3 pm EDT * CMP-COMPREHENSIVE METABOLIC PNL Performed by: [address], [place] [address] Component Value Range Date AST (SGOT) 12 IU/L 4-40 05/07/2023 11:0 3 pm EDT ALBUMIN 3.4 g/dL 3.5-5.5 05/07/2023 11:0 3 pm EDT PROTEIN, TOTAL 6.6 g/dL 6.0-8.3 05/07/2023 11 :03 pm EDT ALKALINE PHOS 80 IU/L 34-136 05/07/2023 11: 03 pm EDT * CBC W/DIFF Performed by: [address], [place] [address] Component Value Range Date RDW 18.5 % 11.0-16.0 05/07/2023 11:0 3 pm EDT NEUTROPHILS 48.3 % 40.0-80.0 05/07/2023 11:0 3 pm EDT MCV 83.1 fL 80.0-100.0 05/07/2023 11:0 3 pm EDT LYMPHS (ABSOLUTE) 3.40 K/uL 0.90-5.50 05/07/2023 11:03 pm EDT * CMP-COMPREHENSIVE METABOLIC PNL Performed by: [address], [place] [address] Component Value Range Date JYM-UEO-HLGEWCW 64 mL/min/1.73 m2 >60 05/07/2023 11:03 pm EDT GFR- 77 mL/min/1.73 m2 >60 11:03 pm EDT * CBC W/DIFF Performed by: [address], [address] [place] [address] Component Value Range Date MONOCYTES 5.7 % 2.0-12.0 05/07/2023 11:0 3 pm EDT LYMPHS 43.1 % 13.0-48.0 05/07/2023 11:0 3 pm EDT BASO 0.6 % 0.0-2.0 05/07/2023 11:0 3 pm EDT EOS 2.3 % 0.0-8.0 05/07/2023 11:0 3 pm EDT * CBC W/DIFF Performed by: [place] [address], [facility] [address] [facility] [address] Component Value Range Date LYMPHS 44.9 % 13.0-48.0 04/30/2023 07:0 8 pm EDT BASO 0.6 % 0.0-2.0 04/30/2023 07:0 8 pm EDT LYMPHS (ABSOLUTE) 3.00 K/uL 0.90-5.50 04/30/2023 07:08 pm EDT MONOCYTES 5.0 % 2.0-12.0 04/30/2023 07:0 8 pm EDT MCV 82.5 fL 80.0-100.0 04/30/2023 07:0 8 pm EDT NEUTROPHILS 46.7 % 40.0-80.0 04/30/2023 07:0 8 pm EDT RDW 18.4 % 11.0-16.0 04/30/2023 07:0 8 pm EDT PLATELET 128 K/cmm 150-450 04/30/2023 07:0 8 pm EDT HEMATOCRIT 30.7 % 42.0-54.0 04/30/2023 07:0 8 pm EDT WBC 6.7 K/cmm 4.5-10.8 04/30/2023 07:0 8 pm EDT MCHC 33.0 g/dL 31.0-36.5 04/30/2023 07:0 8 pm EDT MCH 27.2 pg 26.0-35.0 04/30/2023 07:0 8 pm EDT RBC 3.72 M/cmm 4.00-6.60 04/30/2023 07:0 8 pm EDT HEMOGLOBIN 10.1 g/dL 14.0-18.0 04/30/2023 07:0 8 pm EDT EOS 2.8 % 0.0-8.0 04/30/2023 07:0 8 pm EDT NEUTS (ABSOLUTE) 3.10 K/uL 1.50-7.60 04/30/2023 07:08 pm EDT EOS (ABSOLUTE) 0.20 K/uL 0.20-0.80 04/30/2023 07 :08 pm EDT MONOCYTES (ABSOLUTE) 0.30 K/uL 0.15-1.10 023 07:08 pm EDT MPV 9.3 fL 6.5-12.0 04/30/2023 07:0 8 pm EDT NUCLEATED RBC 0.1 NRBC/100 WBC <1.0 04/30/2023 07:08 pm EDT ANISOCYTOSIS 1+ NEGATIVE 04/30/2023 07:0 8 pm EDT * CBC W/DIFF Performed by: [place] [address] [facility], [address] [facility] [address] Component Value Range Date ANISOCYTOSIS 2+ NEGATIVE 04/23/2023 11:0 7 pm EDT NUCLEATED RBC 0.4 NRBC/100 WBC <1.0 04/23/2023 11:07 pm EDT MPV 9.3 fL 6.5-12.0 04/23/2023 11:0 7 pm EDT MONOCYTES (ABSOLUTE) 0.40 K/uL 0.15-1.10 023 11:07 pm EDT EOS (ABSOLUTE) 0.30 K/uL 0.20-0.80 04/23/2023 11 :07 pm EDT EOS 5.4 % 0.0-8.0 04/23/2023 11:0 7 pm EDT NEUTS (ABSOLUTE) 2.30 K/uL 1.50-7.60 04/23/2023 11:07 pm EDT HEMOGLOBIN 9.6 g/dL 14.0-18.0 04/23/2023 11:0 7 pm EDT RBC 3.51 M/cmm 4.00-6.60 04/23/2023 11:0 7 pm EDT MCH 27.2 pg 26.0-35.0 04/23/2023 11:0 7 pm EDT WBC 6.0 K/cmm 4.5-10.8 04/23/2023 11:0 7 pm EDT MCHC 32.4 g/dL 31.0-36.5 04/23/2023 11:0 7 pm EDT PLATELET 111 K/cmm 150-450 04/23/2023 11:0 7 pm EDT HEMATOCRIT 29.5 % 42.0-54.0 04/23/2023 11:0 7 pm EDT NEUTROPHILS 38.1 % 40.0-80.0 04/23/2023 11:0 7 pm EDT RDW 19.0 % 11.0-16.0 04/23/2023 11:0 7 pm EDT MCV 83.9 fL 80.0-100.0 04/23/2023 11:0 7 pm EDT LYMPHS (ABSOLUTE) 2.90 K/uL 0.90-5.50 04/23/2023 11:07 pm EDT MONOCYTES 6.9 % 2.0-12.0 04/23/2023 11:0 7 pm EDT LYMPHS 49.1 % 13.0-48.0 04/23/2023 11:0 7 pm EDT BASO 0.5 % 0.0-2.0 04/23/2023 11:0 7 pm EDT * CBC W/DIFF Performed by: [place] [address], [facility] [address] [facility] [address] Component Value Range Date LYMPHS 45.5 % 13.0-48.0 04/16/2023 11:0 3 pm EDT BASO 0.6 % 0.0-2.0 04/16/2023 11:0 3 pm EDT LYMPHS (ABSOLUTE) 3.10 K/uL 0.90-5.50 04/16/2023 11:03 pm EDT MONOCYTES 2.8 % 2.0-12.0 04/16/2023 11:0 3 pm EDT MCV 84.2 fL 80.0-100.0 04/16/2023 11:0 3 pm EDT NEUTROPHILS 48.3 % 40.0-80.0 04/16/2023 11:0 3 pm EDT HEMATOCRIT 31.5 % 42.0-54.0 04/16/2023 11:0 3 pm EDT PLATELET 136 K/cmm 150-450 04/16/2023 11:0 3 pm EDT RDW 19.0 % 11.0-16.0 04/16/2023 11:0 3 pm EDT MCHC 33.2 g/dL 31.0-36.5 04/16/2023 11:0 3 pm EDT WBC 6.8 K/cmm 4.5-10.8 04/16/2023 11:0 3 pm EDT MCH 27.9 pg 26.0-35.0 04/16/2023 11:0 3 pm EDT RBC 3.74 M/cmm 4.00-6.60 04/16/2023 11:0 3 pm EDT HEMOGLOBIN 10.4 g/dL 14.0-18.0 04/16/2023 11:0 3 pm EDT EOS 2.8 % 0.0-8.0 04/16/2023 11:0 3 pm EDT NEUTS (ABSOLUTE) 3.30 K/uL 1.50-7.60 04/16/2023 11:03 pm EDT MONOCYTES (ABSOLUTE) 0.20 K/uL 0.15-1.10 023 11:03 pm EDT MPV 9.2 fL 6.5-12.0 04/16/2023 11:0 3 pm EDT EOS (ABSOLUTE) 0.20 K/uL 0.20-0.80 04/16/2023 11 :03 pm EDT NUCLEATED RBC 0.6 NRBC/100 WBC <1.0 04/16/2023 11:03 pm EDT ANISOCYTOSIS 2+ NEGATIVE 04/16/2023 11:0 3 pm EDT * CBC W/DIFF Performed by: [place] [address], [address] [facility] [address] Component Value Range Date ANISOCYTOSIS 1+ NEGATIVE 04/09/2023 11:0 7 pm EDT MPV 9.2 fL 6.5-12.0 04/09/2023 11:0 7 pm EDT NUCLEATED RBC 0.3 NRBC/100 WBC <1.0 04/09/2023 11:07 pm EDT EOS (ABSOLUTE) 0.20 K/uL 0.20-0.80 04/09/2023 11 :07 pm EDT MONOCYTES (ABSOLUTE) 0.70 K/uL 0.15-1.10 023 11:07 pm EDT NEUTS (ABSOLUTE) 5.60 K/uL 1.50-7.60 04/09/2023 11:07 pm EDT HEMOGLOBIN 10.2 g/dL 14.0-18.0 04/09/2023 11:0 7 pm EDT RBC 3.70 M/cmm 4.00-6.60 04/09/2023 11:0 7 pm EDT MCH 27.5 pg 26.0-35.0 04/09/2023 11:0 7 pm EDT WBC 10.2 K/cmm 4.5-10.8 04/09/2023 11:0 7 pm EDT MCHC 33.2 g/dL 31.0-36.5 04/09/2023 11:0 7 pm EDT HEMATOCRIT 30.6 % 42.0-54.0 04/09/2023 11:0 7 pm EDT PLATELET 177 K/cmm 150-450 04/09/2023 11:0 7 pm EDT RDW 18.6 % 11.0-16.0 04/09/2023 11:0 7 pm EDT NEUTROPHILS 54.6 % 40.0-80.0 04/09/2023 11:0 7 pm EDT BASO (ABSOLUTE) 0.10 K/uL 0.00-0.30 04/09/2023 1 1:07 pm EDT MCV 82.8 fL 80.0-100.0 04/09/2023 11:0 7 pm EDT LYMPHS (ABSOLUTE) 3.60 K/uL 0.90-5.50 04/09/2023 11:07 pm EDT MONOCYTES 7.0 % 2.0-12.0 04/09/2023 11:0 7 pm EDT LYMPHS 35.4 % 13.0-48.0 04/09/2023 11:0 7 pm EDT BASO 1.2 % 0.0-2.0 04/09/2023 11:0 7 pm EDT EOS 1.8 % 0.0-8.0 04/09/2023 11:0 7 pm EDT * CBC W/DIFF Performed by: [place] [address], [place] [address] [facility] [address] Component Value Range Date EOS 2.3 % 0.0-8.0 04/02/2023 07:0 7 pm EDT BASO 0.6 % 0.0-2.0 04/02/2023 07:0 7 pm EDT LYMPHS 40.4 % 13.0-48.0 04/02/2023 07:0 7 pm EDT MONOCYTES 6.3 % 2.0-12.0 04/02/2023 07:0 7 pm EDT LYMPHS (ABSOLUTE) 4.30 K/uL 0.90-5.50 04/02/2023 07:07 pm EDT MCV 83.4 fL 80.0-100.0 04/02/2023 07:0 7 pm EDT BASO (ABSOLUTE) 0.10 K/uL 0.00-0.30 04/02/2023 0 7:07 pm EDT RDW 18.7 % 11.0-16.0 04/02/2023 07:0 7 pm EDT NEUTROPHILS 50.4 % 40.0-80.0 04/02/2023 07:0 7 pm EDT PLATELET 214 K/cmm 150-450 04/02/2023 07:0 7 pm EDT HEMATOCRIT 35.1 % 42.0-54.0 04/02/2023 07:0 7 pm EDT WBC 10.7 K/cmm 4.5-10.8 04/02/2023 07:0 7 pm EDT MCH 27.8 pg 26.0-35.0 04/02/2023 07:0 7 pm EDT MCHC 33.4 g/dL 31.0-36.5 04/02/2023 07:0 7 pm EDT RBC 4.21 M/cmm 4.00-6.60 04/02/2023 07:0 7 pm EDT HEMOGLOBIN 11.7 g/dL 14.0-18.0 04/02/2023 07:0 7 pm EDT NEUTS (ABSOLUTE) 5.40 K/uL 1.50-7.60 04/02/2023 07:07 pm EDT EOS (ABSOLUTE) 0.20 K/uL 0.20-0.80 04/02/2023 07 :07 pm EDT MONOCYTES (ABSOLUTE) 0.70 K/uL 0.15-1.10 023 07:07 pm EDT NUCLEATED RBC 0.3 NRBC/100 WBC <1.0 04/02/2023 07:07 pm EDT MPV 9.1 fL 6.5-12.0 04/02/2023 07:0 7 pm EDT ANISOCYTOSIS 1+ NEGATIVE 04/02/2023 07:0 7 pm EDT * CBC W/DIFF Performed by: [place] [address] [facility] [id number] Component Value Range Date ANISOCYTOSIS 2+ NEGATIVE 03/26/2023 07:0 8 pm EDT MPV 9.5 fL 6.5-12.0 03/26/2023 07:0 8 pm EDT NUCLEATED RBC 0.1 NRBC/100 WBC <1.0 03/26/2023 07:08 pm EDT EOS (ABSOLUTE) 0.20 K/uL 0.20-0.80 03/26/2023 07 :08 pm EDT MONOCYTES (ABSOLUTE) 0.50 K/uL 0.15-1.10 023 07:08 pm EDT NEUTS (ABSOLUTE) 4.20 K/uL 1.50-7.60 03/26/2023 07:08 pm EDT HEMOGLOBIN 11.7 g/dL 14.0-18.0 03/26/2023 07:0 8 pm EDT RBC 4.20 M/cmm 4.00-6.60 03/26/2023 07:0 8 pm EDT MCHC 33.0 g/dL 31.0-36.5 03/26/2023 07:0 8 pm EDT MCH 27.9 pg 26.0-35.0 03/26/2023 07:0 8 pm EDT WBC 8.7 K/cmm 4.5-10.8 03/26/2023 07:0 8 pm EDT HEMATOCRIT 35.5 % 42.0-54.0 03/26/2023 07:0 8 pm EDT PLATELET 138 K/cmm 150-450 03/26/2023 07:0 8 pm EDT RDW 19.2 % 11.0-16.0 03/26/2023 07:0 8 pm EDT NEUTROPHILS 48.6 % 40.0-80.0 03/26/2023 07:0 8 pm EDT BASO (ABSOLUTE) 0.10 K/uL 0.00-0.30 03/26/2023 0 7:08 pm EDT MCV 84.5 fL 80.0-100.0 03/26/2023 07:0 8 pm EDT LYMPHS (ABSOLUTE) 3.80 K/uL 0.90-5.50 03/26/2023 07:08 pm EDT MONOCYTES 5.5 % 2.0-12.0 03/26/2023 07:0 8 pm EDT LYMPHS 43.4 % 13.0-48.0 03/26/2023 07:0 8 pm EDT BASO 0.7 % 0.0-2.0 03/26/2023 07:0 8 pm EDT EOS 1.8 % 0.0-8.0 03/26/2023 07:0 8 pm EDT * XRAY CHEST 2 VIEW Performed by: [facility] Component Value Range Date XRAY CHEST 2 VIEW XRAY CHEST 2 VIEWSee NoteFINDINGS: Lungs: No focal consolidation. Pulmonary vasculature is within normal limits. Prominent lung markings. Pleura: No pneumothorax. No pleural effusion. Heart and Mediastinum: The cardiomediastinal silhouette is normal in size and contour.CONCLUSION: No acute cardiopulmonary process.ELECTRONICALLY SIGNED BY KRISSY JACOBSON M.D. 04/24/2023 9:00:33 AM CDT.Reason for Study: J12.2 PARAINFLUENZA VIRUS PNEUMONIAPrincipal Result Assistant Inventory Manager: KRISSY JACOBSON ([phone])[employer] Coxswain: VANIA VELAZQUEZ (JGROVES)[employer] Cashier [employer] Coxswain: CHRIS 04/24/2023 10:01 am EDT * XRAY ABDOMEN 1 VIEW Performed by: [facility] Component Value Range Date XRAY ABDOMEN 1 VIEW XRAY ABDOMEN 1 VIEWS ee NoteFINDINGS: Supine view of the abdomen obtained. No dilated loops of bowel. Colonic fecal residual is present. Soft tissues appear without gross abnormality. Osseous structures appear intact. Gastric Distension.CONCLUSION: Nonobstructive bowel gas pattern.ELECTRONICALLY SIGNED BY KRISSY JACOBSON M.D. 03/28/2023 1:30:24 PM CDT.Reason for Study: R10.0 ACUTE ABDOMENPrincipal Result Assistant Inventory Manager: KRISSY JACOBSON ([phone])[employer] Coxswain: VANIA VELAZQUEZ (JGROVES)[employer]ining [employer] Cashier [employer] Coxswain: CHRIS 03/28/2023 02:30 pm EDT Encounters Encounter Performer Performer Role Encounter Diagnoses Location Date Discharge - Discharged / Transferred to another hospital - [facility] - ([place], [place])(C) - Acute care [facility] 3 04:00 pm EDT - 3 12:03 am EDT Discharge - Discharged to home or self care - Private home/apt. with no home health services [facility] 3 05:52 am EDT - 3 06:56 pm EDT Immunizations Vaccine Date Influenza 02/20/2023 01:00 am EDT TB 1 Step [place] (PPD) 04/01/2023 01:00 am EDT Pneumococcal PPV 23 12/10/2022 01:00 am EST COVID-19 Pfizer Booster 12/06/2020 01:00 am EST COVID-19 Bivalent (Pfizer) 10/13/2021 01 :00 am EST COVID-19 Bivalent (Pfizer) 01/03/2021 01 :00 am EST Social History
--- OUTSIDE RECORDS SUMMARY | 2024-12-13 18:31 | XMS_ITS | Continuity of Care Document ---
Author Organization [facility] [employer] Address [address] [place] [address] Phone Care Team Providers Care Presentation Manager Name Role Phone Martiniquais Raj LANE Unavailable Unavailable Allergies, Adverse Reactions, Alerts Substance Reaction Status Criticality CASTOR OIL Active No Information neomycin Active No Information Medications Medication Instructions Dosage Effective Dates (start - stop) Status Comments hydrocodone 10 mg-acetaminophen 325 mg tablet take 1 tablet by oral route 6 hours as needed for pain - Active ANORO ELLIPTA 62.5-25 MCG INH INHALE ONE PUFF BY MOUTH ONCE DAILY AT THE SAME TIME EACH DAY - Active LEVOTHYROXINE 100 MCG TABLET TAKE ONE TABLET BY MOUTH ONCE DAILY - Active LISINOPRIL 5 MG TABLET TAKE ONE TABLET BY MOUTH ONCE DAILY - Active OMEPRAZOLE DR 40 MG CAPSULE TAKE ONE CAPSULE BY MOUTH ONCE DAILY BEFORE A MEAL - Active lorazepam 1 mg tablet take 1 tablet by oral route 2 times every day as needed 1 MG - Active Faxed to [facility] [phone] TAMSULOSIN HCL 0.4 MG CAPSULE TAKE ONE CAPSULE BY MOUTH EVERY EVENING 0.4 MG - Active GABAPENTIN 600 MG TABLET TAKE ONE TABLET BY MOUTH THREE TIMES A DAY 600 MG - Active CITALOPRAM HBR 20 MG TABLET TAKE ONE TABLET BY MOUTH ONCE DAILY - Active loperamide 2 mg capsule take 2 capsule by oral route after 1st loose stool, followed by 1 capsule after each subsequent loose stool not to exceed 16 mg/day 4 MG - Active Lipitor 40 mg tablet take 1 Tablet by oral route every day at bedtime 40 MG - Active Anusol-HC 2.5 % topical cream with perineal applicator apply by topical route 2 times every day to the affected area(s) as needed - Active FINASTERIDE 5 MG TABLET TAKE ONE TABLET BY MOUTH ONCE DAILY - Active bupropion HCl XL 150 mg 24 hr tablet, extended release take 1 tablet by oral route every day 150 MG - Active carbidopa 25 mg-levodopa 250 mg tablet take 1 tablet by oral route 3 times every day 1.00 tablet - Active folic acid 800 mcg tablet take 1 tablet by oral route every day 0.8 MG - Active Multiple Vitamins tablet take 1 tablet by oral route every day 1 tablet - Active oxybutynin chloride 5 mg tablet take 1 tablet by oral route 3 times every day 5 MG - Active Vitamin B-12 500 mcg tablet take 1 tablet by mouth once daily - Active Advance Directives Directive Yes / No Effective Date File Name Life Support Not Answered N/A N/A Intubation Not Answered N/A N/A Antibiotics Not Answered N/A N/A IV Fluid Support Not Answered N/A N/A Tube Feed Not Answered N/A N/A Other Directive N/A N/A WARNING:The information contained in this section is historical and is provided for information only and does not constitute a legal document or any assurance that the information is still accurate. Please verify the information with the go of the legal document before using it for clinical purposes. Encounters Encounter Description Practice Location Reason(s) For Visit Diagnoses Date Provider Providers Copied on Encounter [facility], [address], [place], [place], [id number] , tel: [phone] Grandy No Information 0 English Anthony. [address] [place] [address], [id number] , [place]. tel: [phone] [facility], [address], [place], [place], [address] , tel: [phone] Grandy No Information 9 English Anthony. [address] [place] [address], [id number] , [place]. tel: [phone] [facility], [address], [place], [place], [address] , [place] tel: [phone] Grandy Benign prostatic hyperplasia, unspecified whether lower urinary tract symptoms present 9 English Anthony. [place], [address] , [place]. tel: [phone] [facility], [address], [place], [place], [address] , [place] tel: [phone] Grandy OAB (overactive bladder)Thrombocytope niaBenign prostatic hyperplasia, unspecified whether lower urinary tract symptoms present 9 English Anthony. [place], [address] , [place]. tel: [phone] Referring Provider: [place], [address] . tel:[phone] [facility], [address], [place], [place], [address] , tel: [phone] Grandy No Information 9 English Anthony. [place], [address] , [place]. tel: [phone] [facility], [address], [place], [place], [address] , tel: [phone] Sally Abnormal CBC Oct- 9 English Anthony. [place], [address] , [place]. tel: [phone] [facility], [address], [place], [place], [address] , tel: [phone] Sally No Information 8 English Anthony. [place], [address] , [place]. tel: [phone] [facility], [address], [place], [place], [address] , tel: [phone] Sally Leukocytosis, unspecified type 8 English Anthony. [place], [address] , . tel: [phone] Referring Provider: [place], [address] . tel:[phone] [facility], [address], [place], [place], [address] , tel: [phone] Sally No Information 8 English Anthony. [address] [place], [address] , . tel: [phone] [facility], [address], [place], [place], [address] , tel: [phone] Sally Pulmonary emphysema, unspecified emphysema typeHypertensive kidney disease, stage 1-4 or unspecified chronic kidney diseaseSecondary hyperparathyroidism (of renal origin)Current mild episode of major depressive disorder without prior episode 8 English Anthony. [address] [place] [address], [id number] , . tel: [phone] Referring Provider: [place], [address] . tel:[phone] [facility], [address], [place], [place], [address] , tel: [phone] Sally Diarrhea, unspecifie d type 8 English Anthony. [place], [address] , . tel: [phone] [facility], [address], [place], [place], [address] , tel: [phone] Grandy Aortic ectasia, unspecified siteChronic silicosisHypothyroidi sm, unspecified typeHypertensive kidney disease, stage 1-4 or unspecified chronic kidney diseasePulmonary emphysema, unspecified emphysema typeAsymptomatic carotid artery stenosis, unspecified lateralityGeneralized anxiety disorderParkinson's diseaseBody mass index (BMI) 26.0-26.9, adult 8 English Anthony. [place], [address] , . tel: [phone] Referring Provider: [place], [address] . tel:[phone] [facility], [address], [place], [place], [address] , tel: [phone] Sally No Information 8 English Anthony. [place], [address] , [place]. tel: [phone] [facility], [address], [place], [place], [address] , tel: [phone] Grandy Gastroesophageal reflux disease without esophagitisThrombocyt openiaFacet arthropathy, cervicalParkinson's diseaseRecurrent major depressive disorder, in partial remission 8 English Anthony. [place], [address] , . tel: [phone] Referring Provider: [place], [address] . tel:[phone] [facility], [address], [place], [place], [address] , tel: [phone] Sally No Information 8 English Anthony. [place], [address] , [place]. tel: [phone] [facility], [address], [place], [place], [address] , tel: [phone] Grandy MARVIN (obstructive sleep apnea) 7 English John. [place], [address] , [place]. tel: [phone] [facility], [address], [place], [place], [address] , tel: [phone] Grandy Pulmonary emphysema, unspecified emphysema typeOSA (obstructive sleep apnea) 7 English John. [place], [address] , [place]. tel: [phone] [facility], [address], [place], [place], [address] , tel: [phone] Grand[facility] Numbness in both handsVitiligo Jun- 7 English Anthony. [place], [address] , . tel: [phone] Referring Provider: [place], [address] . tel:[phone] [facility], [address], [place], [place], [address] , tel: [phone] Grandy Atherosclerosis of aortaAortic ectasia, unspecified siteOther chronic painBenign non-nodular prostatic hyperplasia without lower urinary tract symptomsLong term current use of opiate analgesic English Anthony. [place], [address] , [place]. tel: [phone] Referring Provider: [place], [address] . tel:[phone] [facility], [address], [place], [place], [address] , tel: [phone] Grandy Pain of right upper extremityOther chronic pain English Anthony. [place], [address] , [place]. tel: [phone] Referring Provider: [place], [address] . tel:[phone] [facility], [address], [place], [place], [address] , tel: [phone] Grandy Gastrointestinal hemorrhage associated with intestinal diverticulosisIron deficiency anemia due to chronic blood lossChronic constipation English Anthony. [place], [address] , [place]. tel: [phone] Referring Provider: [place], [address] . tel:[phone] [facility], [address], [place], [place], [address] , tel: [phone] Grandy Rib pain on left side English Anthony. [place], [address] , . tel: [phone] Referring Provider: [place], [address] . tel:[phone] [facility], [address], [place], [place], [address] , tel: [phone] Sally Parkinson's disease English Anthony. [place], [address] , [place]. tel: [phone] [facility], [address], [place], [place], [address] , [place] tel: [phone] Sally Rib pain on left side Martiniquais Raj. [place], [address] , [place]. tel: [phone] [facility], [address], [place], [place], [address] , [place] tel: [phone] Sally No Information English Anthony. [place], [address] , [place]. tel: [phone] [facility], [address], [place], [place], [address] , tel: [phone] Sally Shoulder impingement , rightVenous insufficiencyHyperten sive kidney disease, stage 1-4 or unspecified chronic kidney diseasePulmonary emphysema, unspecified emphysema type English Anthony. [place], [address] , [place]. tel: [phone] Referring Provider: [place], [address] . tel:[phone] [facility], [address], [place], [place], [address] , tel: [phone] Sally NeuropathyParkinson diseaseGeneralized anxiety disorderRecurrent major depressive disorder, in partial remissionHx of malignant neoplasm of kidneyHx of unilateral nephrectomyHypothyroi dism, unspecified typeEssential hypertensionChronic silicosisOveractive bladderBenign non-nodular prostatic hyperplasia without lower urinary tract symptomsOther vitamin B12 deficiency anemiaLeft leg swellingOSA (obstructive sleep apnea)Chronic pain due to traumaEncounter for long-term (current) use of other medicationsScreening for lipoid disorders 0 7 English Anthony. [address] [place], [address] , [place]. tel:[phone] Referring Provider: Raj Vazquez, [address] [place], [address] . tel:[phone] Family History Family Member Type Diagnosis Age At Onset Father Problem (finding) osteoarthritis Sister Problem (finding) Irritable bowel disease Mother Problem (finding) Irritable bowel disease Mother Problem (finding) depression Sister Problem (finding) diabetes mellitus type 2 Brother Problem (finding) prostate cancer Sister Problem (finding) migraine Mother Problem (finding) premature coronary hear t disease Brother Problem (finding) depression Sister Problem (finding) malignant neoplasm of l marisabel Mother Problem (finding) Hearing deficiency Father Problem (finding) Blood disorder Sister Problem (finding) osteoarthritis Mother Problem (finding) osteoporosis Mother Problem (finding) hypertension Mother Problem (finding) osteoarthritis Brother Problem (finding) osteoarthritis Sister Problem (finding) Cancer, brain Father Problem (finding) depression Sister Problem (finding) depression Brother Problem (finding) malignant neoplasm of b one Sister Problem (finding) hypertension Mother Problem (finding) Allergies Immunizations Vaccine Date Status Comments Fluzone High-Dose 4272-2646, high dose, preservative free administered Source: Source U nspecified Payers Payer name Insurance type Covered green party ID Authoriza tion(s) No Information Social History Type Description Quantity Date Captured Comments Alcohol Use Details Unknown Caffeine Use Details Unknown Tobacco Use Status No Information Smoking Status No Information Sex Male Chief Complaint And Reason For Visit No Information Reason For Referral Reason For Referral No Information History Of Present Illness Encounter Date Complaint History Of Prese nt Illness No Information Functional Status Date Functional Assessmen t No Information Instructions Date Instruction Additional Infor mation No Information Assessments Type Assessment Date No Information Patient Care Teams Name Effective Dates (start - stop) Status Members No Information
--- OUTSIDE RECORDS SUMMARY | 2024-12-13 18:31 | XMS_ITS | Encounter Summary ---
Author Organization [facility] Address [address] [facility] [place] [address] Care Team Providers Care Lace Inspector Name Role Phone Ebony WILLARD MD, Devante Unavailable [phone] Steven Queen DO Primary Care Provider [phone] Encounter Details Date Type Department Care Team (Late st Contact Info) Description 04/05/2022 [facility] Outpatient Visit [facility] Orthopedics - Radiology [address] [place] [address] Document, Scanned Social History Tobacco Use Types Packs/Day Years Used Date Smoking Tobacco: Never Smokeless Tobacco: Never Alcohol Use Standard Drinks/Week Comments Not Currently 0 (1 standard drink = 0.6 oz pur e alcohol) Sex and Gender Information Value Date Recorded Sex Assigned at Not on file Gender Identity Not on file Sexual Orientation Not on file documented as of this encounter Plan of Treatment Not on file documented as of this encounter Visit Diagnoses Not on filedocumented in this encounter Care Teams Lace Inspector Relationship Specialty Start Date End Date Steven Queen DO [address] [place] [address] PCP - General Internal Medicine 06/14/22 [place] [address] DIAZ [address] [place] [address] Orthopedic Surgery 06/14/22 documented as of this encounter
--- OUTSIDE RECORDS SUMMARY | 2024-12-13 18:31 | XMS_ITS | Clinical Summary ---
Author Organization [facility] Address [address], [facility] [address] [place] [address] Phone Care Team Providers Care Church Business Administrator Name Role Phone Juan Diego Hennessy MD Unavailable [phone] Kale Jiménez MD Primary Care Provider [phone] Joe Smith MD Unavailable [phone] Lucio Pagan APRN, EGG PACKER Unavailable [phone] Allergies Active Allergy Reactions Criticality Noted Date Comments [place] Oil Nausea High 02/18/2019 shakes Codeine Nausea 02/18/2019 shakes Erythromycin Nausea 02/18/2019 shakes Fish Oil Other (see Comments) 05/18/2020 Neomycin Other (see Comments) 02/03/2017 Niacin Other (see Comments) 05/14/2021 Sulfa Antibiotics Other (see Comments) 05/14/20 21 Medications budesonide (ENTOCORT EC) [address] Particles Take 6 mg by mouth every morning. Active tamsulosin (FLOMAX) 0.4 MG Capsule 0.4 mg. Active finasteride (PROSCAR) 5 MG Tablet Take 5 mg by mouth daily. Active albuterol 108 (90 Base) MCG/ACT Aerosol Solution albuterol sulfate HFA 90 mcg/actuation aerosol inhaler INHALE 2 PUFFS EVERY 4 HOURS NEEDED Active levothyroxine (SYNTHROID) 100 MCG Tablet Take 100 mcg by mouth daily. 0 Active polyethylene glycol (GLYCOLAX) 17 GM/SCOOP Powder Miralax 17 gram/dose oral powder 1 capful daily as needed for constipated Active atorvastatin (LIPITOR) 80 MG Tablet 1 Active HYDROcodone-ac etaminophen (NORCO) 5-325 MG Tablet 2 Active amLODIPine (NORVASC) 5 MG Tablet 2 Active DULoxetine (CYMBALTA) [address] Particles 2 Active alendronate (FOSAMAX) 70 MG Tablet TAKE 1 TABLET BY MOUTH ONCE A WEEK ON Tuesdays 3 Active OYSCO 500 + D 500-5 MG-MCG Tablet Take 1 Tablet by mouth 2 times daily. 3 Active gabapentin (NEURONTIN) 400 MG Capsule Take 400 mg by mouth 3 times daily. 3 Active Diclofenac Sodium (VOLTAREN) 1 % Gel APPLY TO THE AFFECTED AREA OF THE SKIN THREE TIMES DAILY 3 Active pantoprazole (PROTONIX) 40 MG Tablet Delayed Response Take 40 mg by mouth daily. 3 Active senna 8.6 MG Tablet TAKE 2 TABLETS BY MOUTH TWICE DAILY 3 Active simethicone (MYLICON) 80 MG Chewable Tablet Take 80 mg by mouth. 3 Active carbidopa-levo dopa (SINEMET) 10-100 MG Tablet Take 1 Tablet by mouth 3 times daily. 3 Active hydrocortisone 2.5 % Cream Apply 2 times daily. Application Site:back 30 g 2 3 Active Spiriva Respimat 2.5 MCG/ACT Aerosol Solution INHALE 2 PUFFS BY MOUTH ONCE DAILY 3 Active Anoro Ellipta 62.5-25 MCG/ACT AEROSOL POWDER, BREATH ACTIVATED INHALE 1 PUFF BY MOUTH DAILY 3 Active trospium (SANCTURA) 20 MG Tablet Take 20 mg by mouth. 1 11/30/19 25 Discontin ued(Thera py completed ) Active Problems Problem Noted Date Diagnosed Date MARVIN (obstructive sleep apnea) 02/24/2023 Anemia in stage 3a chronic kidney disease 2022 Hypertensive kidney disease, stage III 2 Generalized anxiety disorder 11/28/2021 Dilatation of aorta 11/28/2021 Chronic silicosis 11/28/2021 Chronic bullous emphysema 11/28/2021 Asymptomatic carotid artery stenosis 11/28/2021 Osteoarthrosis 05/15/2021 Spinal stenosis of cervical region 05/14/2021 Degeneration of cervical intervertebral disc Hypothyroidism 05/14/2021 Gastro-esophageal reflux disease without esophag itis 05/14/2021 Essential hypertension 05/14/2021 Benign prostatic hyperplasia 07/16/2019 Dysthymia 06/04/2019 Chronic obstructive pulmonary disease 04/07/2019 CLL (chronic lymphocytic leukemia) 02/19/2019 Fatigue 02/19/2019 Parkinson's disease 02/15/2019 Chronic back pain 02/15/2019 Encounters Date Type Department Care Team Description 12/06/2024 Travel 11/30/2024 10:45 AM TREE FARMER Office Visit [facility] [address] [place] [id number] Lucio Pagan, LINE WALKER, EGG PACKER Other retention of urine (Primary Dx) Discharge Disposition: Discharged to home or Selfcare 11/30/2024 Travel 09/21/2024 Telephone [facility] [address] [place] [address] Lucio Pagan, LINE WALKER, EGG PACKER from Last 3 Months Immunizations Immunization Administration Dates Next Due COVID-19, MRNA, LNP-S, BIVAL ENT , PFIZER, 30 MCG/0.3 ML (12+ Y/O) 10/13/2021,01/03/2021 Covid-19, Mrna, Lnp-s, Pf, 3 0 Mcg/0.3 Ml Dose (Pfizer) 10/17/2021,01/20/2021,12/28/2020,2020 Influenza Vaccine 02/15/2019 Influenza Vaccine,unspecifie d Formulation 07/27/2014 Influenza, Injectable, Quadrivalent 07/16/2019 Influenza, Quadrivalent, Adjuvanted 08/16/2022,1 Influenza, Seasonal, Injecta ble, Undefined 02/20/2023 Influenza, high-dose, trivalent, PF 06/20/2020,1 Pneumococcal PCV, Unspecifie d Formulation 06/04/2019,10/28/2016 Pneumococcal Vaccine - 13 Valent 06/04/2019 Pneumococcal Vaccine Adult - 23 Valent 12/10/2022 Pneumococcal Vaccine, Unspec ified Formulation 01/24/2015 Tetanus Toxoid, Unspecified Formulation 10/27/2013 Zoster Vaccine Recombinant 07/24/2021,09/15/2020 Family History Medical History Relation Name Comments Cancer Brother Cancer Father Lung Cancer Mother Cancer Sister Relation Name Status Comments Brother Father Mother Sister Social History Tobacco Use Types Packs/Day Years [...] Total Score - Questions 1-9 0 07/0 05/2022 Sexually Active Control Partners Comments Not Currently Sex and Gender Information Value Date Recorded Sex Assigned at Not on file Legal Sex Male 7:58 PM CDT Gender Identity Not on file Sexual Orientation Not on file Last Filed Vital Signs Vital Sign Reading Time Taken Comments Blood Pressure 133/89 11/30/2024 11:01 AM TREE FARMER Pulse 76 11/30/2024 11:01 AM TREE FARMER Temperature 36.8 C (98.2 F) 10/06/2023 2:17 PM TREE FARMER Respiratory Rate 18 11/30/2024 11:01 AM TREE FARMER Oxygen Saturation 94% 11/30/2024 11:01 AM TREE FARMER Inhaled Oxygen Concentration - - Weight 77.6 kg (171 lb) 11/30/2024 11:01 AM TREE FARMER Height 177.8 cm (5' 10) 11/30/2024 11:01 AM TREE FARMER Body Mass Index 24.54 11/30/2024 11:01 AM TREE FARMER Plan of Treatment Health Maintenance Due Date Last Done Comments Hepatitis C Virus (HCV) Screening 1940 TdaP Immunization 1940 Respiratory Syncytial Virus (RSV) Immunization (Adult) (1 - 1-dose 75+ series) 02/10/2015 Influenza Immunization (#1) 06/27/202407/28, 08/01/2021, 06/20/2020, Additional history exists SARS-COV-2 Immunization (7 - 2024-25 season) 2024 10/17/2021, 10/13/2021, 01/20/2021, Additional history exists Zoster Immunization Completed 07/24/2021, 0 Pneumococcal Immunization (50+ years) Completed 12/10/2022, 06/04/2019, 06/04/2019, Additional history exists Pneumococcal Immunization Combined Discontinued 12/10/2022, 06/04/2019, 06/04/2019, Additional history exists Hepatitis B Immunization Aged Out No longer eligible based on patient's age to complete this topic Meningococcal Immunization (ACWY) Aged Out No longer eligible based on patient's age to complete this topic Rotavirus Immunization Aged Out No lo nger eligible based on patient's age to complete this topic Insurance MEDICARE C [place] MEDICARE [place] Advance Directives Documents on File Type Date Recorded Patient Furniture Builder Expl anation Power of Goggles Assembler for Health Care 06/05/2023 11:07 AM POA 06/05/23 Care Teams Church Business Administrator Relationship Specialty Start Date End Date Kale Jiménez MD [address], [address] [place] [address] PCP - General Internal Medicine 11/03/19 Juan Diego Hennessy MD [address] [place] [phone] Consulting Physician Oncology 11/03/19 Joe Smith MD [address], [address] [place] [address] Nephrology 11/11/19 Lucio Pagan APRN, EGG PACKER [address] [place] [address] Nurse Practitioner Advanced Practice Nurse 10/06/23
--- OUTSIDE RECORDS SUMMARY | 2024-12-13 18:31 | XMS_ITS | Clinical Summary ---
Author Organization [facility] Address [address] [place] [address] Care Team Providers Care Insurance Administrator Name Role Phone Ebony WILLARD MD, Devante Unavailable [phone] Steven Queen DO Primary Care Provider [phone] Source Comments [facility],non-owned Affiliates and Associated Physician Practices is amultiple site organization consisting of ambulatory clinics and hospital sitesin [place], [place], [place] and [place]. This disclosure is being madepursuant to the Care Everywhere program and may not contain all information available regarding this patient. Last updated 18.[facility] Allergies Active Allergy Reactions Criticality Noted Date Comments Adin Oil Nausea and/or Vomiting,Other High 02/18/2019 Reaction: unknown, shakes Codeine Nausea and/or Vomiting 02/18/2019 shakes Erythromycin Nausea and/or Vomiting,Other 02/18/2019 Reaction: Unknown, shakes Fish Oil Other 05/18/2020 Neomycin Headache 02/03/2017 Medications * Be aware that medications may not be up to date on this document. Alwaysverify current medications with the patient. Medication Sig Dispensed Refills Start Date End Date Status DULoxetine (Cymbalta) 60 MG capsule Take 1 (one) capsule by mouth once daily Active trospium (Sanctura) 20 MG tablet Take 1 (one) tablet by mouth 2 times daily Active amLODIPine (Norvasc) 5 MG tablet Take 1 (one) tablet by mouth once daily Active hydroCHLOROthiazid e (Microzide) 12.5 MG capsule Take 1 (one) capsule by mouth once daily Active oxyCODONE, immediate release, (Roxicodone) 5 MG tabletIndications: Fall, initial encounter Take 1 (one) tablet by mouth every 4 hours as needed 12 tablet 03/21/2023 Active Additional Information Patient not taking.Reported on 04/02/2024 acetaminophen (Tylenol) 500 MG tablet Take 1 (one) tablet by mouth every 4 hours as needed for Fever, Pain or Headache Maximum allowable Acetaminophen amount = 4 Grams (4000 mg) / 24 hours. 03/21/2023 Active ibuprofen (Motrin) 400 MG tablet Take 1 (one) tablet by mouth every 4 hours as needed 03/21/2023 Active Additional Information Patient not taking.Reported on 04/02/2024 albuterol HFA (Proventil; Ventolin; Proair) 108 (90 Base) MCG/ACT inhaler Inhale 2 (two) puffs by mouth every 4 hours as needed for Shortness of Breath or Wheezing 03/21/2023 Active budesonide-formote rol (Symbicort) 160-4.5 MCG/ACT inhaler Inhale 2 (two) puffs by mouth 2 times daily 03/21/2023 Active tiotropium (Spiriva Respimat) 2.5 MCG/ACT inhaler Inhale 2 (two) puffs by mouth once daily 03/21/2023 Active Additional Information Patient not taking.Reported on 04/02/2024 gabapentin (Neurontin) 400 MG capsule Take 1 (one) capsule by mouth 3 times daily 03/21/2023 Active atorvastatin (Lipitor) 80 MG tablet Take 1 (one) tablet by mouth at bedtime 03/21/2023 Active diclofenac sodium (Voltaren) 1 % gel Apply 2 (two) g to affected area 4 times daily 03/21/2023 Active Additional Information Patient not taking.Reported on 04/02/2024 bisacodyl (Dulcolax) 10 MG suppository Insert 1 (one) suppository into the rectum once daily as needed for Constipation 03/21/2023 Active polyethylene glycol 3350 (Miralax) 17 g packet Take 17 (seventeen) g by mouth 2 times daily 03/21/2023 Active Additional Information Patient not taking.Reported on 04/02/2024 polyethylene glycol 3350 (Miralax) 17 g packet Take 17 (seventeen) g by mouth once daily as needed for Constipation 03/21/2023 Active Additional Information Patient not taking.Reported on 04/02/2024 senna (Senokot) 8.6 MG tablet Take 1 (one) tablet by mouth once daily 03/21/2023 Active Additional Information Patient not taking.Reported on 04/02/2024 calcium-vitamin D (Os-Taj 500 + D) 500-200 mg-unit tablet Take 1 (one) tablet by mouth 2 times daily with morning and evening meal 03/21/2023 Active Additional Information Patient not taking.Reported on 04/02/2024 alendronate (Fosamax) 70 MG tablet Take 1 (one) tablet by mouth every 7 days before meal Take in morning with full glass of water on empty stomach and remain upright for 30 min 03/24/2023 Active Additional Information Patient not taking.Reported on 04/02/2024 finasteride (Proscar) 5 MG tablet Take 1 (one) tablet by mouth once daily 03/21/2023 Active tamsulosin (Flomax) 0.4 MG capsule Take 2 (two) capsules by mouth once daily At the same time every day after a meal. 03/21/2023 Active simethicone (Mylicon) 80 MG chew tablet Take 1 (one) tablet by mouth 4 times daily as needed for Gas Pain 03/21/2023 Active Additional Information Patient not taking.Reported on 04/02/2024 levothyroxine (Synthroid) 100 MCG tablet Take 1 (one) tablet by mouth once daily 03/22/2023 Active pantoprazole EC (Protonix) 40 MG tablet Take 1 (one) tablet by mouth once daily 03/21/2023 Active Additional Information Patient not taking.Reported on 04/02/2024 budesonide (Entocort EC) 3 MG capsule TAKE 2 CAPSULES DAILY IN THE MORNING Active cephalexin (Keflex) 500 MG capsule 09/07/2022 Active hydrocortisone (Hytone) 2.5 % cream APPLY TOPICALLY TO THE AFFECTED AREA TWICE DAILY NEEDED FOR RASH 01/11/2023 Active levothyroxine (Synthroid) 100 MCG tablet TAKE 1 TABLET(100 MCG) BY MOUTH 1 TIME EACH DAY 01/30/2023 Active meloxicam (Mobic) 7.5 MG tablet Active methocarbamol (Robaxin) 500 MG tablet Active naproxen (Naprosyn) 500 MG tablet Take 1 (one) tablet by mouth 2 times daily with morning and evening meal 12/07/2021 Active omeprazole (PriLOSEC) 40 MG capsule Take 1 (one) capsule by mouth once daily 30 capsule 11 02/03/2023 Active ondansetron, disintegrating, (Zofran ODT) 4 MG tablet Take 1 (one) tablet by mouth every 8 hours as needed 03/27/2023 Active sertraline (Zoloft) 50 MG tablet 07/22/2022 Active Anoro Ellipta 62.5-25 MCG/ACT inhaler 04/30/2023 Active carbidopa-levodopa (Sinemet) 25-250 MG tabletIndications: Secondary parkinsonism, unspecified secondary Parkinsonism type (HCC) Take 1 (one) tablet by mouth 3 times daily 90 tablet 11 08/26/2023 Active Active Problems Problem Noted Date Diagnosed [...] medical care, and heating? Somewhat hard 02/20/2023 [facility] [place] of Occupat ional Health - Occupational Stress Questionnaire Answer Date Recorded [...] place to sleep or slept in a halfway (including now)? No 02/20/2023 Sex and Gender [...] Mass Index 28.55 04/02/2024 10:19 AM CDT Plan of Treatment Health Maintenance Due Date Last Done Comments BONE DENSITY TESTING 1940 MEDICARE AWV 12 MONTHS 1940 DTAP/TDAP/TD VACCINES (1 - Tdap) 02/10/1959 PNEUMOCOCCAL VACCINE 50+ (1 of 2 - PCV) 02/10/1959 ZOSTER VACCINE (1 of 2) 02/10/1990 Respiratory Syncytial Virus (RSV) Vaccine Pt: or over 60 yrs (1 - 1-dose 75+ series) 02/10/2015 COVID-19 VACCINE (7 - season) 2024 10/17/2021, 10/13/2021, 01/20/2021, Additional history exists INFLUENZA VACCINE (#1) 2024 3, 08/16/2022, 08/01/2021, Additional history exists DEPRESSION SCREENING 10/27/2024 HEPATITIS B VACCINE Aged Out No longe r eligible based on patient's age to complete this topic HIB VACCINE Aged Out No longer eligi ble based on patient's age to complete this topic HPV VACCINE Aged Out No longer eligi ble based on patient's age to complete this topic MENINGOCOCCAL (Group B) VACCINE Aged Out No longer eligible based on patient's age to complete this topic MENINGOCOCCAL VACCINE Aged Out No whitney macrina eligible based on patient's age to complete this topic Medical Devices Implanted Type Area Drafter Electronic Device Identifier Shelf Expiration Date Model / Serial / Lot Lag Screw 100mm Implanted:Qty: 1 on 02/20/2023 at [facility] 280.301 / / 280.301 Screw 4.5mm 8mm 46mm 3.5mm Slf-Tap Lg Implanted:Qty: 1 on 02/20/2023 at [facility] Active-Semi [facility] 214.846 / / Screw 4.5mm 8mm 40mm 3.5mm Slf-Tap Lg Implanted:Qty: 1 on 02/20/2023 at [facility] Active-Semi [facility] 214.840 / / Screw 36mm Hip Cndrl Comp Dhs Dcs Ss Implanted:Qty: 1 on 02/20/2023 at [facility] Active-Semi [employer] 280.990 / / Plate 2 Hl Lopro Comp Hip Cndrl 46x19 Implanted:Qty: 1 on 02/20/2023 at [facility] Active-Semi [facility] 281.021S / / Explanted Type Area Drafter Electronic Device Identifier Shelf Expiration Date Model / Serial / Lot Screw 12.7mm 8mm 2.7mm 95mm Hip Cndrl Explanted:Qty: 1 on 02/20/2023 at [facility] 280.295S / / Advance Directives * Full Code (Latest Code Status on File) Date Activated Date Inactivated Comments 02/19/2023 9:26 PM 03/21/2023 3:00 PM Care Teams Insurance Administrator Relationship Specialty Start Date End Date Steven Queen DO [address] [place] [address] PCP - General Internal Medicine 06/14/22 [place] [id number] [address] Orthopedic Surgery 06/14/22
--- OUTSIDE RECORDS SUMMARY | 2024-12-13 18:31 | XMS_ITS | Referral Summary ---
Author Organization [facility] Address [address] [place] [address] Care Team Providers Care Geological Manager Name Role Phone Ebony WILLARD MD, Devante Unavailable [phone] Steven Queen DO Primary Care Provider [phone] Source Comments [facility]non-owned Affiliates and Associated Physician Practices is amultiple site organization consisting of ambulatory clinics and hospital sitesin [place], [place], [place] and [place]. This disclosure is being madepursuant to the Care Everywhere program and may not contain all information available regarding this patient. Last updated 18.[facility] Allergies Active Allergy Reactions Criticality Noted Date Comments Beeson Oil Nausea and/or Vomiting,Other High 02/18/2019 Reaction: [...] medical care, and heating? Somewhat hard 02/20/2023 [facility] [place] of Occupat ional Health - Occupational Stress [...] place to sleep or slept in a care home (including now)? No 02/20/2023 Sex and Gender [...] Mass Index 28.55 04/02/2024 10:19 AM CDT Functional Status Functional Status Response Date of Assess ment Is person deaf or have serious hearing difficult y? No 02/20/2023 Is person blind or have serious difficulty seein g? No 02/20/2023 Does person have serious dif ficulty walking/climbing stairs? No 02/20/2023 Does person have difficulty dressing/bathing? No 02/20/2023 Does person have difficulty doing errands alone? Yes 02/20/2023 Cognitive Status Response Date of Assessm ent Does person have difficulty concentrating/remembering/making decisions? Yes 02/20/2023 Plan of Treatment Not on file Medical Devices Implanted Type Area Hoop Maker Helper Machine Device Identifier Shelf Expiration Date Model / Serial / Lot Lag Screw 100mm Implanted:Qty: 1 on 02/20/2023 at [facility] 280.301 / / 280.301 Screw 4.5mm 8mm 46mm 3.5mm Slf-Tap Lg Implanted:Qty: 1 on 02/20/2023 at [facility] 214.846 / / Screw 4.5mm 8mm 40mm 3.5mm Slf-Tap Lg Implanted:Qty: 1 on 02/20/2023 at [facility] 214.840 / / Screw 36mm Hip Cndrl Comp Dhs Dcs Ss Implanted:Qty: 1 on 02/20/2023 at [facility] 280.990 / / Plate 2 Hl Lopro Comp Hip Cndrl 46x19 Implanted:Qty: 1 on 02/20/2023 at [facility] 281.021S / / Explanted Type Area Hoop Maker Helper Machine Device Identifier Shelf Expiration Date Model / Serial / Lot Screw 12.7mm 8mm 2.7mm 95mm Hip Cndrl Explanted:Qty: 1 on 02/20/2023 at [facility] 280.295S / / Advance Directives * Full Code (Latest Code Status on File) Date Activated Date Inactivated Comments 02/19/2023 9:26 PM 03/21/2023 3:00 PM Care Teams Geological Manager Relationship Specialty Start Date End Date Steven Queen DO [address] [place] [address] PCP - General Internal Medicine 06/14/22 [place] [address] [place] [address] Orthopedic Surgery 06/14/22
--- OUTSIDE RECORDS SUMMARY | 2024-12-13 18:31 | XMS_ITS | Continuity of Care Document ---
Author Organization [facility] Address [address] [place] [address] [address] [place] [address] Phone Care Team Providers Care Third Steel Pourer Name Role Phone Salena Remy Unavailable Unavailable Procedures Procedure Date Post-op Follow-up Visit Post-op Follow-up Visit Post-op Follow-up Visit Post-op Follow-up Visit Remove Cataract, Insert Lens Office/outpatient Visit, Est Echo Exam Of Eye Post-op Follow-up Visit Post-op Follow-up Visit After Cataract Laser Surgery Office/outpatient Visit, Est Office/outpatient Visit, Est Post-op Follow-up Visit Post-op Follow-up Visit Post-op Follow-up Visit Remove Cataract, Insert Lens Eye Exam Established Pt Echo Exam Of Eye Office Consultation Eye Exam & Treatment Refraction Advance Directives Directive Yes / No Effective Date File Name No Information Encounters Encounter Description Practice Location Reason(s) For Visit Diagnoses Date Provider Providers Copied on Encounter [facility], [address] [place] [address] [address], [place], [place], [id number], [place] tel:[phone] [facility] No Information 0 Sandrita Martino. [address] , [address], [place], [address], [place]. tel:[phone] [facility], [address], [place], [place], [id number], [place] tel:[phone] [facility] No Information 0 Sandrita Herman [address], [place], [place], [facility], [place]. tel:[phone] [facility], [address], [place], [place], [id number], [place] tel:[phone] [facility] No Information 0 Francesco Dominguez. [address], [place], [facility], [place]. tel:[phone] [facility], [address] [place] [address] [address], [place], [place], [id number], [place] tel:[phone] [facility] No Information 0 Sanrdita Herman [address] , [address], [place], [facility], [place]. tel:[phone] [facility], [address], [place], [place], [id number], [place] tel:[phone] [facility] No Information 0 Sandrita Herman [address] , [address], [place], [facility], [place]. tel:[phone] Office/outpati ent Visit, [facility], [address] [place] [address] [address], [place], [place], [id number], [place] tel:[phone] [facility] No Information 0 Sandrita Herman [address] , [address], [place], [facility], [place]. tel:[phone] Referring Provider: Salena Dejesus, [address], [place], [address]. tel:[phone] [facility], [address] [place] [address] [address], [place], [place], [address], [place] tel:[phone] [facility] No Information Nov-1 9-200 9 Remy Salena. [address] , [address], [place], [facility], [place]. tel:[phone] [facility], [address] [place] [address] [address], [place], [place], [id number], [place] tel:[phone] [facility] No Information Oct-0 1-200 9 Sandrita Salena. [address] , [address], [place], [facility], [place]. tel:[phone] [facility], [address] [place] [address] [address], [place], [place], [id number], [place] tel:[phone] Nov [facility] No Information Sep-3 0-200 9 Remy Salena. [address] , [address], [place], [facility], [place]. tel:[phone] Office/outpati ent Visit, Est [facility], [address] [place] [address] [address], [place], [place], [address], [place] tel:[phone] [facility] No Information Sep-2 4-200 9 Sandrita Washburnn. [address] , [address], [place], [facility], [place]. tel:[phone] Office/outpati ent Visit, Est [facility], [address] [place] [address] [address], [place], [place], [address], [place] tel:[phone] [facility] No Information Mar-1 2-200 9 Sandrita Salena. [address] , [address], [place], [facility], [place]. tel:[phone] [facility], [address], [place], [place], [address], [place] tel:[phone] [facility] No Information Dec-0 8-200 7 Remy Salena. [address], [place], [facility], [place]. tel:[phone] Referring Provider: René Jane, [address] [place], [place], [facility]. tel:[phone] [facility], [address], [place], [place], [id number], [place] tel:[phone] [facility] No Information Feb-1 5-200 7 Remy Salena. [address] , [address], [place], [facility], [place]. tel:[phone] Referring Provider: René Jane, [address] [place], [place], [facility]. tel:[phone] [facility], [address], [place], [place], [id number], [place] tel:[phone] [facility] No Information Feb-0 8-200 7 Remy Salena. [address], [place], [address], [place]. tel:[phone] [facility], [address], [place], [place], [address], [place] tel:[phone] [facility] hospital No Information Feb-0 7-200 7 Remy Salena. [address] , [address], [place], [facility], [place]. tel:[phone] Referring Provider: René Jane, [address] [place], [address]. tel:[phone] [facility], [address], [place], [place], [address], [place] tel:[phone] [facility] No Information 7 Sandrita Martino. [address] , [address], [place], [facility], . tel:[phone] Referring Provider: Salena Dejesus, [address], [place], [facility]. tel:[phone] Office Consultation [facility], [address] [place] [address] [address], [place], [place], [address], tel:[phone] [facility] No Information Ro Merritt. [address] [place] [address], [facility], . tel:[phone] Referring Provider: Salena Dejesus, [address] [facility], [place], [facility]. tel:[phone] [facility], [address] [place] [address] [address], [place], [place], [address], tel:[phone] [facility] [address] No Information 7 Sandrita Martino. [address] [place] [address] , [address], [place], [facility], . tel:[phone] Family History Family Member Type Diagnosis Age At Onset No Information Payers Payer name Insurance type Covered republican ID Authoriza tion(s) No Information Social History Type Description Quantity Date Captured Comments Sex Male Smoking Status No Information Chief Complaint And Reason For Visit No [...]
[2024-12-13 18:38] LABS: Platelet Estimate Adequate (Adequate); Schistocytes None Seen
[2024-12-13 18:39] LABS: Anisocytosis 2+
--- OUTSIDE RECORDS SUMMARY | 2024-12-13 18:39 | XMS_ITS | Continuity of Care Document ---
Author Organization [facility] [place] [id number] [place] [address] [address] [place] [address] Phone Care Team Providers Care Vocational Childcare Teacher Name Role Phone Salena Remy Unavailable Unavailable [...] Diagnoses Date Provider Providers Copied on Encounter Formerly [facility], [address] [place] [address] [address], [place], [place], [address], [place] tel:[phone] [facility] No Information 0 Sandrita Martino. [address] , [address], [place], [address], [place]. tel:[phone] [facility], [address], [place], [place], [address], [place] tel:[phone] SEC [facility] No Information 0 Sandrita Herman [address], [place], [place], [facility], [place]. tel:[phone] [facility], [address], [place], [place], [address], [place] tel:[phone] [facility] No Information 0 Francesco Dominguez. [address], [place], [facility], [place]. tel:[phone] [facility], [address] [place] [address] [address], [place], [place], [address], [place] tel:[phone] SEC [facility] No Information 0 Sandrita Hemran [address] , [address], [place], [facility], [place]. tel:[phone] [facility], [address], [place], [place], [address], [place] tel:[phone] [facility] No Information 0 Sandrita Herman [address], [place], [facility], [place]. tel:[phone] Office/outpati ent Visit, [facility], [address] [place] [address] [address], [place], [place], [address], [place] tel:[phone] [facility] No Information 0 Sandrita Herman [address], [place], [facility], [place]. tel:[phone] Referring Provider: Salena Dejesus, [address], [place], [address]. tel:[phone] [facility], [address] [place] [address] [address], [place], [place], [address], [place] tel:[phone] SEC [facility] No Information Nov-1 9-200 9 Remy Salena. [address], [place], [facility], [place]. tel:[phone] [facility], [address] [place] [address] [address], [place], [place], [address], [place] tel:[phone] SEC [facility] No Information Oct-0 1-200 9 Sandrita Salena. [address], [place], [facility], [place]. tel:[phone] [facility], [address] [place] [address] [address], [place], [place], [address], [place] tel:[phone] Nov [facility] No Information Sep-3 0-200 9 Remy Salena. [address] , [address], [place], [facility], [place]. tel:[phone] Office/outpati ent Visit, Est [facility], [address] [place] [address] [address], [place], [place], [address], [place] tel:[phone] SEC [facility] No Information Sep-2 4-200 9 Sandrita Washburnn. [address], [place], [facility], [place]. tel:[phone] Office/outpati ent Visit, Est [facility], [address] [place] [address] [address], [place], [place], [address], [place] tel:[phone] SEC [facility] No Information Mar-1 2-200 9 Snadrita Salena. [address] , [address], [place], [facility], [place]. tel:[phone] [facility], [address], [place], [place], [address], [place] tel:[phone] SEC [facility] No Information Dec-0 8-200 7 Remy Salena. [address], [place], [facility], [place]. tel:[phone] Referring Provider: René Jane, [address] [place], [place], [facility]. tel:[phone] [facility], [address], [place], [place], [address], [place] tel:[phone] SEC [facility] No Information Feb-1 5-200 7 Remy Salena. [address], [place], [facility], [place]. tel:[phone] Referring Provider: René Jane, [address] [place], [facility]. tel:[phone] [facility], [address], [place], [place], [address], [place] tel:[phone] SEC [facility] No Information Feb-0 8-200 7 Remy Salena. [address], [address], [place], [address], [place]. tel:[phone] [facility], [address], [place], [place], [address], [place] tel:[phone] [facility] No Information Feb-0 7-200 7 Remy Salena. [address], [place], [facility], [place]. tel:[phone] Referring Provider: René Jane, [address] [place], [address]. tel:[phone] [facility], [address], [place], [place], [address], [place] tel:[phone] SEC [facility] No Information 7 Sandrita Martino. [address] , [address], [place], [facility], . tel:[phone] Referring Provider: Salena Dejesus, [address], [place], [facility]. tel:[phone] Office Consultation [facility], [address] [place] [address] [address], [place], [place], [address], tel:[phone] [facility] No Information Ro Merritt. [address] [place] [address], [facility], . tel:[phone] Referring Provider: Salena Dejesus, [address], [place], [facility]. tel:[phone] [facility], [address] [place] [address] [address], [place], [place], [address], tel:[phone] [facility] [address] No Information 7 Sandrita Martino. [address] [place] [address] , [address], [place], [facility], . tel:[phone] Family History Family Member Type Diagnosis Age At Onset No Information Payers Payer name Insurance type Covered democrat ID Authoriza tion(s) No Information Social History [...]
--- OUTSIDE RECORDS SUMMARY | 2024-12-13 18:39 | XMS_ITS | Continuity of Care Document ---
Author Organization [email or web address] Address [address] [place] [address] Phone Care Team Providers Care Process Design Engineer Name Role Phone Mauritian Raj LANE Unavailable Unavailable Allergies, Adverse Reactions, [...] needed 1 MG - Active Faxed to [facility] [phone] TAMSULOSIN HCL 0.4 MG CAPSULE TAKE ONE [...] Diagnoses Date Provider Providers Copied on Encounter [employer], [address], [place], [place], [address] , tel: [phone] [place] No Information 0 English Anthony. [address] [place] [address], [id number] , [place]. tel: [phone] [employer], [address], [place], [place], [address] , tel: [phone] [facility] No Information 9 English Anthony. [address] [place] [address], [id number] , [place]. tel: [phone] [employer], [address], [place], [place], [address] , [place] tel: [phone] [facility] Benign prostatic hyperplasia, unspecified whether lower urinary tract symptoms present 9 English Anthony. [address], [address] , [place]. tel: [phone] [email or web address], [address], [place], [place], [address] , [place] tel: [phone] [facility] OAB (overactive bladder)Thrombocytope niaBenign prostatic hyperplasia, unspecified whether lower urinary tract symptoms present 9 English Anthony. [address] [place], [address] , [place]. tel: [phone] Referring Provider: Raj [place], [address] . tel:[phone] [email or web address], [address], [place], [place], [address] , tel: [phone] [facility] No Information 9 English Anthony. [address] [place], [address] , [place]. tel: [phone] [employer], [address], [place], [place], [address] , tel: [phone] Sally Abnormal CBC Oct- 9 English Anthony. [address] [place], [address] , [place]. tel: [phone] [email or web address], [address], [place], [place], [address] , tel: [phone] [place] No Information 8 English Anthony. [address] [place], [address] , [place]. tel: [phone] [employer], [address], [place], [place], [address] , tel: [phone] Sally Leukocytosis, unspecified type 8 English Anthony. [address] [place], [address] , . tel: [phone] Referring Provider: [place], [address] . tel:[phone] [employer], [address], [place], [place], [address] , tel: [phone] Sally No Information 8 English Anthony. [address] [place], [place], [address] , . tel: [phone] [employer], [address], [place], [place], [address] , tel: [phone] Sally Pulmonary emphysema, unspecified emphysema typeHypertensive kidney disease, stage 1-4 or unspecified chronic kidney diseaseSecondary hyperparathyroidism (of renal origin)Current mild episode of major depressive disorder without prior episode 8 English Anthony. [address] [place] [address], [id number] , . tel: [phone] Referring Provider: [place], [address] . tel:[phone] [employer], [address], [place], [place], [address] , tel: [phone] Sally Diarrhea, unspecifie d type 8 English Anthony. [address] [place], [address] , . tel: [phone] [email or web address], [address], [place], [place], [address] , tel: [phone] [facility] Aortic ectasia, unspecified siteChronic silicosisHypothyroidi sm, unspecified typeHypertensive kidney disease, stage 1-4 or unspecified chronic kidney diseasePulmonary emphysema, unspecified emphysema typeAsymptomatic carotid artery stenosis, unspecified lateralityGeneralized anxiety disorderParkinson's diseaseBody mass index (BMI) 26.0-26.9, adult 8 English Anthony. [address] [place], [place], [address] , . tel: [phone] Referring Provider: [place], [address] . tel:[phone] [employer], [address], [place], [place], [address] , tel: [phone] Sally No Information 8 English Anthony. [address] [place], [address] , [place]. tel: [phone] [employer], [address], [place], [place], [address] , tel: [phone] [facility] Gastroesophageal reflux disease without esophagitisThrombocyt openiaFacet arthropathy, cervicalParkinson's diseaseRecurrent major depressive disorder, in partial remission 8 English Anthony. [address] [place], [place], [address] , . tel: [phone] Referring Provider: Raj [place], [address] . tel:[phone] [employer], [address], [place], [place], [address] , tel: [phone] Sally No Information 8 English Anthony. [place], [address] , [place]. tel: [phone] [employer], [address], [place], [place], [address] , tel: [phone] [facility] MARVIN (obstructive sleep apnea) 7 English John. [address] [place], [place], [address] , [place]. tel: [phone] [employer], [address], [place], [place], [address] , tel: [phone] [facility] Pulmonary emphysema, unspecified emphysema typeOSA (obstructive sleep apnea) 7 English John. [place], [place], [address] , [place]. tel: [phone] [employer], [address], [place], [place], [address] , tel: [phone] [facility] Numbness in both handsVitiligo Jun- 7 English Anthony. [address] [place], [address] , . tel: [phone] Referring Provider: [place], [address] . tel:[phone] [employer], [address], [place], [place], [address] , tel: [phone] [facility] Atherosclerosis of aortaAortic ectasia, unspecified siteOther chronic painBenign non-nodular prostatic hyperplasia without lower urinary tract symptomsLong term current use of opiate analgesic English Anthony. [address], [address] , [place]. tel: [phone] Referring Provider: [place], [address] . tel:[phone] [employer], [address], [place], [place], [address] , tel: [phone] [facility] Pain of right upper extremityOther chronic pain English Anthony. [address] [place], [place], [address] , [place]. tel: [phone] Referring Provider: [place], [address] . tel:[phone] [employer], [address], [place], [place], [address] , tel: [phone] [facility] Gastrointestinal hemorrhage associated with intestinal diverticulosisIron deficiency anemia due to chronic blood lossChronic constipation English Anthony. [place], [address] , [place]. tel: [phone] Referring Provider: [place], [address] . tel:[phone] [employer], [address], [place], [place], [address] , tel: [phone] [facility] Rib pain on left side English Anthony. [address] [place], [place], [address] , . tel: [phone] Referring Provider: [place], [address] . tel:[phone] [employer], [address], [place], [place], [address] , tel: [phone] Sally Parkinson's disease English Anthony. [address], [address] , [place]. tel: [phone] [employer], [address], [place], [place], [address] , [place] tel: [phone] Sally Rib pain on left side Mauritian Raj. [address] [place], [place], [address] , [place]. tel: [phone] [employer], [address], [place], [place], [address] , [place] tel: [phone] Sally No Information English Anthony. [address] [place], [address] , [place]. tel: [phone] [employer], [address], [place], [place], [address] , tel: [phone] Sally Shoulder impingement , rightVenous insufficiencyHyperten sive kidney disease, stage 1-4 or unspecified chronic kidney diseasePulmonary emphysema, unspecified emphysema type English Anthony. [address] [place], [address] , [place]. tel: [phone] Referring Provider: [place], [address] . tel:[phone] [employer], [address], [place], [place], [address] , tel: [phone] Sally NeuropathyParkinson diseaseGeneralized anxiety disorderRecurrent major depressive disorder, in partial remissionHx of malignant neoplasm of kidneyHx of unilateral nephrectomyHypothyroi dism, unspecified typeEssential hypertensionChronic silicosisOveractive bladderBenign non-nodular prostatic hyperplasia without lower urinary tract symptomsOther vitamin B12 deficiency anemiaLeft leg swellingOSA (obstructive sleep apnea)Chronic pain due to traumaEncounter for long-term (current) use of other medicationsScreening for lipoid disorders 0 7 English Anthony. [address] [place], [place], [address] , [place]. tel:[phone] Referring Provider: Raj Vazquez, [address] [place], [address] . tel:[phone] Family History Family Member Type Diagnosis Age [...] Immunizations Vaccine Date Status Comments Fluzone High-Dose [id number], high dose, preservative free administered Source: Source U nspecified Payers Payer name Insurance type Covered constitution party ID Authoriza tion(s) No Information Social [...]
[2024-12-13] MEDS: SODIUM CHLORIDE 0.9% IV 1,000 ML 999 ML IV CONT ×2 (19:15→19:16)
--- NOTE | 2024-12-13 19:28 | ECG_ITS ---
Test Date: 2024-12-14 08:48:23 Measurements Intervals [place] Rate: 73 P: 0 [place]: 0 QRS: -51 QRSD: 118 T: 37 QT: 434 QTc: 480 Interpretive Statements ATRIAL FLUTTER/TACHYCARDIA WITH FREQUENT VENTRICULAR PREMATURE COMPLEXES LOW QRS VOLTAGE IN PRECORDIAL LEADS POSSIBLE RIGHT VENTRICULAR CONDUCTION DELAY INFERIOR INFARCT, AGE INDETERMINATE BORDERLINE ST-T WAVE ABNORMALITY- ANTEROLAT/HIGH LAT LEADS BASELINE ARTIFACT- II, III, AVR, AVF, V1 ABNORMAL ECG Compared to ECG 12/13/2024 17:47:10 NO SIGNIFICANT CHANGE Electronically Signed On 12-14-2024 10:03:11 EQUIPMENT MAINT TECH by Arnulfo Eason D.O.
[2024-12-13 20:18] LABS: Add Urine Microscopic? YES; Appearance Urine Cloudy (Clear); Bacteria Urine 4+ /hpf; Bilirubin Urine Negative (Negative); Blood Urine Negative (Negative); Color Urine Yellow (Yellow); Glucose Urine UA Negative (Negative); Ketones Urine Negative (Negative); Leukocyte Esterase Ur 3+ LEU/UL (Negative); Nitrate Urine Positive (Negative); Non Pathogenic Casts 0-2; Protein Urine 2+ mg/dL (Negative); RBC Urine 0-2 /hpf (0-2); Specific Grav Ur 1.013 (1.001-1.035); Squamous Epithelial Cell Urine None Seen /hpf (Few); Urobilinogen Urine 0.2 mg/dL (<2.0); WBC Urine 51-100 /hpf (0-3); pH Urine >=9.0 (5.0-9.0)
[2024-12-13] MEDS: HYDROmorphone HCL INJ (*CRX) 1 MG/ML SYR 0.5 MG IV PUSH (20:36)
[2024-12-13 20:59] LABS: Alveolar/Arterial O2 Gradient 64.8 mmHg; Base Excess ABG -4.1 mEq/l (+/-2.0); Fractional Inspired Oxygen 21 %; HCO3 ABG 16.7 mEq/l (22.0-26.0); Oxygen Content ABG 13.8 %vol (16.0-22.0); Oxygen Saturation ABG 94.5 % (95.0-100.0); Oxyhemoglobin 91.7 % THb (90.0-100.0); Total Hemoglobin 10.7 g/dL (12.0-18.0)
[2024-12-13 21:06] LABS: Device ROOM AIR; Site Drawn RIGHT BRACHIAL
[2024-12-13 21:13] LABS: Lactic Acid Reflex 3.1 mmol/L (0.7-2.0)
[2024-12-13] MEDS: OSELTAMIVIR PHOSPHATE 30 MG CAPSULE PO (21:50)
[2024-12-13] MEDS: CEFEPIME 1 GM/NS 50 ML 1 GM/50 ML BAG IVPB (22:20)
[2024-12-13] MEDS: metroNIDAZOLE 500 MG/ISO 100ML 500 MG/100 ML BAG 100 MG IVPB (22:28)
--- NOTE | 2024-12-13 22:44 | P.HP_ITS ---
H&P: HPI History of Present Illness Date/Time: 12/13/24 22:44 Chief Complaint: Respiratory symptoms and weakness Narrative: 84-year-old male with a past medical history cognitive impairment, Parkinson's disease, mild pulmonary hypertension, diastolic dysfunction, COPD, obstructive sleep apnea, renal cell carcinoma status post nephrectomy, BPH with chronic urinary retention and chronic indwelling Duron who presented to the ER from [facility] due to respiratory symptoms and weakness. At the time of my evaluation the patient is only alert oriented to self. He thought he was at acute rehab facility. He denies any shortness of breath despite having significant tachypnea. ABG demonstrates respiratory alkalosis in the patient appears quite anxious. He is fixated on the fact that he feels like he needs to have a bowel movement. The patient's respiratory rate was 30-35 but when he was distracted is respiratory rate would come down to 20-25. He is hyperventilating due to anxiety. He was given a small dose of Ativan after my evaluation and his respiratory rate improved significantly. Imaging performed in the ER did demonstrate likely bilateral pneumonia. Patient was influenza A positive. He was admitted for treatment of pneumonia and flu. The patient was on room air and not requiring oxygen. He was afebrile. The patient said multiple times that he had COVID. However we did not receive the report from the custodial that stated the patient had any known respiratory viruses. Patient had advanced directives on his chart from the custodial indicating he would want to be DNR/DNI. The patient had also verbalizes intent to me during prior admissions. However given the patient's respiratory status when he was in the ER the ER provider contacted the patient's family. They revoked to the patient's DNR status until they could come see the patient. At the time that I had left the ER the patient's family had not arrived to discuss code status or the patient's condition. Review of Systems 2 Review of Systems: ROS unobtainable: Yes unobtainable due to medical condition (Cognitive impairment) [facility] Past Medical History Medical History Depression with anxiety History of infection due to ESBL Escherichia coli Urinary retention due to benign prostatic hyperplasia Venous stasis dermatitis of both lower extremities Lung nodule Collagenous colitis Chronic indwelling Duron catheter Diastolic dysfunction Echo 01/2022: EF 60 65% Chronic obstructive pulmonary disease Hypothyroidism Benign prostatic hyperplasia Arthritis Degenerative disc disease Renal cell carcinoma of right kidney Status post right nephrectomy. Gastroesophageal reflux disease Silicosis Obstructive sleep apnea Chronic anemia Chronic kidney disease, stage 3 Baseline creatinine ranges between 1.30 and 1.40. Degenerative arthritis of knee, bilateral Chronic lymphocytic leukemia Cognitive impairment Essential hypertension Parkinson disease Primary osteoarthritis of both knees Surgical History Surgical History Status post open reduction with internal fixation of fracture Right femoral neck fracture History of arthroscopy of right knee History of cholecystectomy History of appendectomy History of repair of left rotator cuff History of cataract extraction History of right nephrectomy (2003) History of back surgery Family History Family History Father Family history of liver disease Family history of lung cancer Patient's father is Family history of primary malignant neoplasm of liver Mother Family history of heart disease in male family member before age 55 Patient's mother is Family history of coronary artery disease Acute myocardial infarction Sibling Family history of lung cancer Family history of malignant neoplasm of bone Patient's sister is Patient's brother is Malignant neoplasm of prostate Grandparent Family history of arthritis Other Family history of malignant neoplasm of kidney Social History Social History Social History: He is . The patient resides at [facility]. His son lives in the local area. The patient is retired from [employer]. No alcohol, tobacco, or illicit substance. He uses wheelchair for mobility and can stand to pivot. 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 Gender identity (if verbalized by the patient): Male Spiritual care concerns: Yes (Yarsanism) Meds Home Medications and Allergies Home Medications ?Medication ?Instructions ?Recorded ?Confirmed ?Type levothyroxine 100 mcg tablet 100 mcg PO DAILY #90 tabs 10/17/22 12/14/24 Rx alendronate 70 mg tablet 70 mg PO WEEKLY 06/03/23 12/14/24 History bisacodyl 10 mg rectal suppository 10 mg RECTAL DAILY PRN Constipation 06/03/23 12/14/24 History (Dulcolax (bisacodyl)) tamsulosin 0.4 mg capsule 0.8 mg (2 x 0.4 mg) PO DAILY #180 06/27/23 12/14/24 Rx caps albuterol sulfate 90 mcg/actuation 1 puff inhalation Q4H PRN 08/18/23 12/14/24 Rx aerosol inhaler shortness of breath or wheezing #8.5 grams duloxetine 60 mg capsule,delayed 60 mg PO DAILY #30 caps 08/18/23 12/14/24 Rx release lidocaine 5 % topical patch 1 patch topical DAILY #15 ea 08/30/23 12/14/24 Rx (Lidoderm) carvedilol 3.125 mg tablet 3.125 mg PO BID 11/22/23 12/14/24 History furosemide 20 mg tablet 40 mg PO DAILY 11/22/23 12/14/24 History gabapentin 300 mg capsule 300 mg PO BID 11/22/23 12/14/24 History magnesium hydroxide 400 mg/5 mL 30 ml PO HS PRN Constipation 11/22/23 12/14/24 History oral suspension (Milk of Magnesia) omeprazole 20 mg capsule,delayed 20 mg PO DAILY 11/22/23 12/14/24 History release atorvastatin 80 mg tablet 80 mg PO HS 12/04/23 12/14/24 History hydrocodone 5 mg-acetaminophen 325 1 tablet PO Q8H PRN Pain (Scale 02/13/24 12/14/24 History mg tablet Score 4-6) carbidopa 25 mg-levodopa 100 mg 3 tablet PO TID #240 tabs 04/13/24 12/14/24 Rx tablet (Sinemet) ondansetron 8 mg disintegrating 8 mg PO Q8H 04/13/24 12/14/24 History tablet allopurinol 100 mg tablet 100 mg PO DAILY 11/15/24 12/14/24 History amlodipine 5 mg tablet 2.5 mg PO QAM 11/15/24 12/14/24 History ascorbic acid (vitamin C) 500 mg 500 mg PO BID 11/15/24 12/14/24 History capsule cholecalciferol (vitamin D3) 125 5,000 unit PO DAILY 11/15/24 12/14/24 History mcg (5,000 unit) tablet (Vitamin D3) ferrous sulfate 325 mg (65 mg 325 mg PO TID 11/15/24 12/14/24 History iron) tablet,delayed release folic acid 1 mg tablet 1 mg PO DAILY 11/15/24 12/14/24 History loratadine 10 mg tablet (Allergy 10 mg PO DAILY 11/15/24 12/14/24 History Relief (loratadine)) methotrexate sodium 2.5 mg tablet 15 mg PO DAILY 11/15/24 12/14/24 History potassium chloride 10 mEq 10 meq PO DAILY 11/15/24 12/14/24 History tablet,extended release spironolactone 25 mg tablet 25 mg PO DAILY 11/15/24 12/14/24 History polyethylene glycol 3350 17 gram 17 g PO QAM #10 ea 11/20/24 12/14/24 Rx oral powder packet (Miralax) acetaminophen 325 mg tablet 650 mg PO Q4H PRN fever or pain 12/14/24 12/14/24 History cyanocobalamin (vitamin B-12) 1,000 mcg PO DAILY 12/14/24 12/14/24 History 1,000 mcg capsule dextran 70-hypromellose 0.1 %-0.3 1 drp EACH EYE BID PRN dry eye(s) 12/14/24 12/14/24 History % eye drops (Artificial Tears (dextran 70-hypromellose)) dextromethorphan-guaifenesin 10 10 ml PO Q6H PRN cough 12/14/24 12/14/24 History mg-100 mg/5 mL oral liquid (Tussin DM) diclofenac sodium 1 % topical gel 4 g topical BID 12/14/24 12/14/24 History (Arthritis Pain (diclofenac)) finasteride 5 mg tablet 5 mg PO DAILY 12/14/24 12/14/24 History fluticasone 250 mcg-salmeterol 50 1 inh inhalation Q12H 12/14/24 12/14/24 History mcg/dose blistr powdr for inhalation (Advair Diskus) ipratropium 0.5 mg-albuterol 3 mg 3 ml inhalation TID 12/14/24 12/14/24 History (2.5 mg base)/3 mL nebulization soln lactulose 10 gram/15 mL oral 30 ml PO DAILY 12/14/24 12/14/24 History solution (Enulose) magnesium citrate (Citroma oral 296 ml PO DAILY PRN constipation 12/14/24 12/14/24 History solution) sennosides 8.6 mg-docusate sodium 2 tab-cap PO BID 12/14/24 12/14/24 History 50 mg tablet (2-in-1 Laxative) sodium phosphates 19 gram-7 118 ml RECTAL DAILY PRN 12/14/24 12/14/24 History gram/118 mL enema constipation Allergies Allergy/AdvReac Type Severity Reaction Status Date / Time neomycin Allergy Unknown rash Verified 11/15/24 14:26 Sulfa (Sulfonamide Allergy Unknown Rash Verified 11/15/24 14:26 Antibiotics) castor oil AdvReac Intermediate Nausea and Verified 11/15/24 14:26 Vomiting erythromycin base AdvReac Intermediate SHAKING, Verified 11/15/24 14:26 HEADACHE Vital Signs Vital Signs - 24 hr 12/13/24 16:46 Temperature 97.7 F Pulse Rate 75 Respiratory Rate 16 Blood Pressure 117/60 Pulse Oximetry 97 Exam 2 Narrative: Weight 70 kg BMI 22.1 H&P: Results Labs Labs: Laboratory Tests 12/13/24 17:55 12/13/24 17:55 12/13/24 12/13/24 12/13/24 17:25 17:55 19:43 WBC 12.1 H RBC 3.79 L Hgb 10.6 L Hct 32.7 L MCV 86.3 MCH 28.0 MCHC 32.4 RDW 18.4 H Plt Count 203 MPV 10.6 H Immature Gran % (Auto) 0.7 H Neut % (Auto) 43.6 L Lymph % (Auto) 51.3 H Co[place] % (Auto) 3.4 Eos % (Auto) 0.4 Baso % (Auto) 0.6 Lymph # (Auto) 6.20 H [place] # (Auto) 0.4 Eos # (Auto) 0.1 Baso # (Auto) 0.1 Abs Immat Gran (auto) 0.09 H Absolute Neuts (auto) 5.3 Absolute Nucleated RBC 0.000 Nucleated RBC % 0.0 Platelet Estimate Adequate % Immature Plt Fraction 4.4 Anisocytosis 2+ Schistocytes None seen PT 14.3 INR 1.1 APTT 27.6 Puncture Site ABG pH ABG pCO2 ABG pO2 ABG PO2/FiO2 Ratio ABG HCO3 ABG O2 Saturation ABG O2 Content ABG Base Excess A-a Gradient Oxyhemoglobin Total Hemoglobin O2 Delivery Device O2 Liters/Min FiO2 Sodium 129 L Potassium 3.9 Chloride 92 L Carbon Dioxide 24 Anion Gap 13 H BUN 28 H D Creatinine 1.09 Estim Creat Clear Calc 44 Estimated GFR > 60 Glucose 111 H Lactic Acid Calcium 9.1 Magnesium 1.8 Total Bilirubin 1.0 AST 25 ALT 9 Alkaline Phosphatase 85 NT-Pro-B Natriuret Pep 783 H Total Protein 7.0 Albumin 3.6 Lipase 287 Urine Color Yellow Urine Appearance Cloudy H Urine pH >=9.0 H Ur Specific [place] 1.013 Urine Protein 2+ H Urine Glucose (UA) Negative Urine Ketones Negative Ur Blood (Man) Negative Urine Nitrate Positive H Urine Bilirubin Negative Urine Urobilinogen 0.2 Leukocyte Esterase Rfl 3+ H Urine RBC 0-2 Urine WBC 51-100 H Ur Squamous Epith Cells None seen Urine Bacteria 4+ H Urine Casts 0-2 Influenza A (RT-PCR) Positive A Influenza B (RT-PCR) Negative RSV (RT-PCR) Negative SARS-CoV-2 RNA (RT-PCR) Negative 12/13/24 12/13/24 20:47 20:51 WBC RBC Hgb Hct MCV MCH MCHC RDW Plt Count MPV Immature Gran % (Auto) Neut % (Auto) Lymph % (Auto) [place] % (Auto) Eos % (Auto) Baso % (Auto) Lymph # (Auto) [place] # (Auto) Eos # (Auto) Baso # (Auto) Abs Immat Gran (auto) Absolute Neuts (auto) Absolute Nucleated RBC Nucleated RBC % Platelet Estimate % Immature Plt Fraction Anisocytosis Schistocytes PT INR APTT Puncture Site Right brachial ABG pH 7.540 H* ABG pCO2 20.0 L* ABG pO2 61.0 L ABG PO2/FiO2 Ratio 2.90 ABG HCO3 16.7 L ABG O2 Saturation 94.5 L ABG O2 Content 13.8 L ABG Base Excess -4.1 A-a Gradient 64.8 Oxyhemoglobin 91.7 Total Hemoglobin 10.7 L O2 Delivery Device Room air O2 Liters/Min Not Reportable FiO2 21 Sodium Potassium Chloride Carbon Dioxide Anion Gap BUN Creatinine Estim Creat Clear Calc Estimated GFR Glucose Lactic Acid 3.1 H Calcium Magnesium Total Bilirubin AST ALT Alkaline Phosphatase NT-Pro-B Natriuret Pep Total Protein Albumin Lipase Urine Color Urine Appearance Urine pH Ur Specific [place] Urine Protein Urine Glucose (UA) Urine Ketones Ur Blood (Man) Urine Nitrate Urine Bilirubin Urine Urobilinogen Leukocyte Esterase Rfl Urine RBC Urine WBC Ur Squamous Epith Cells Urine Bacteria Urine Casts Influenza A (RT-PCR) Influenza B (RT-PCR) RSV (RT-PCR) SARS-CoV-2 RNA (RT-PCR) Impressions Chest X-Ray 12/13/24 18:41 IMPRESSION: Subsegmental left medial basilar and right basilar atelectasis/consolidation. Chest/Abdomen/Pelvis CT 12/13/24 20:01 IMPRESSION: Likely bilateral lower lobe bronchopneumonia, possibly with a component of aspiration given the presence of airway debris. Recommend low-dose noncontrast CT of the chest after the resolution of acute symptoms to exclude persistent pulmonary nodules. Mediastinal lymphadenopathy. Hepatomegaly. Possible cystitis. Possible fecal impaction. Assessment and Plan Assessment and plan (1) Bilateral pneumonia: Qualifiers: Pneumonia type: due to unspecified organism Lung location: lower lobe of lung Qualified Code(s): J18.9 - Pneumonia, unspecified organism Code(s): J18.9 - Pneumonia, unspecified organism Status: Acute (2) COPD (chronic obstructive pulmonary disease): Qualifiers: COPD type: unspecified COPD Qualified Code(s): J44.9 - Chronic obstructive pulmonary disease, unspecified Code(s): J44.9 - Chronic obstructive pulmonary disease, unspecified Status: Acute (3) Influenza A: Code(s): J10.1 - Influenza due to other identified influenza virus with other respiratory manifestations Status: Acute (4) Acute respiratory alkalosis: Code(s): E87.3 - Alkalosis Status: Acute (5) Chronic indwelling Duron catheter: Code(s): Z97.8 - Presence of other specified devices Status: Acute (6) Abnormal urinalysis: Code(s): R82.90 - Unspecified abnormal findings in urine Status: Acute (7) Chronic kidney disease, stage 3: Qualifiers: Chronic kidney disease stage 3 subtype: stage 3a (GFR 45-59) Qualified Code(s): N18.31 - Chronic kidney disease, stage 3a Code(s): N18.30 - Chronic kidney disease, stage 3 unspecified Status: Acute (8) Cognitive impairment: Code(s): R41.89 - Other symptoms and signs involving cognitive functions and awareness Status: Acute (9) Fecal impaction: Code(s): K56.41 - Fecal impaction Status: Acute Plan The patient presented with significant tachypnea. She was he was found to be in respiratory alkalosis and nose quite anxious. Kidney improved after anxiety medication administration. However patient was noted to have bilateral pneumonia on CT. Debris within the area of ways suggested the may be a component of aspiration. The patient was subsequently given Rocephin azithromycin and Flagyl in the ER. Aunt time of my evaluation I change antibiotic therapy to simplify antibiotic regimen to Unasyn to cover for anaerobic organisms and added doxycycline for coverage of possible post influenza pneumonia with doxycycline. The has evidence of fecal impaction on CT. Enema was given in the ER. Will wait for response. Will resume multiple medications the patient already received at the custodial for constipation. CT also demonstrates possible cystitis. However I think that this is chronic he does have an abnormal urine but is not febrile and urine within the catheter bag does not appear to be overtly abnormal in gross appearance. Either way patient is on antibiotics that would cover for typical organisms. He does have a history of multidrug resistant E coli in the past. But again I am less suspicious of an acute UTI contributing patient's condition. Urine cultures and blood cultures have been obtained and are pending. Patient does have some acute on chronic hyponatremia with an elevated BUN from baseline. Will hold the patient's home Lasix but will cautiously continue prior lack tone. Will monitor strict I&O's. Patient's creatinine appears to be at baseline in GFR stable. Quality VTE Prophylaxis VTE prophylaxis: mechanical ordered (SCDs)
[2024-12-13] MEDS: AZITHROMYCIN 500 MG/NS 250 ML 500 MG/250 ML BAG 250 MG IVPB (22:45)
[2024-12-13] MEDS: IPRATROPIUM BR 0.02% INH SOLN 0.5 MG/2.5 ML VIAL 1 MG INHALATION (22:51)
[2024-12-13] MEDS: ALBUTEROL SULFATE NEB 2.5 MG/3 ML INH 10 MG INHALATION (22:51)
[2024-12-13] MEDS: LORazepam INJ (*CRX) 2 MG/ML VIAL 0.5 MG IV PUSH (23:46)
[2024-12-13 23:53] LABS: Reflex Lactic Acid Yes or No Add Lactic
[2024-12-14] VITALS (25 sets, daily range): BP systolic 107–142; BP diastolic 53–86; PULSE 66–115; RESP 15–30; TEMP 36.2–38.2; O2SAT 95–100; BMI 24.6
[2024-12-14 02:23] LABS: Lactic Acid 1.2 mmol/L (0.7-2.0)
[2024-12-14] MEDS: ALBUTEROL SULFATE NEB 2.5 MG/3 ML INH INHALATION ×4 (02:30→21:00)
[2024-12-14] MEDS: SODIUM CHLORIDE 0.9% IV 1,000 ML 125 ML IV CONT ×2 (02:42→10:43)
--- NOTE | 2024-12-14 04:51 | ADMGEN ---
This patient, Florencio Bird, was admitted to 3 [facility] Surg Room 306-02. Patient/family oriented to hospital policies and general routines including ID bracelet, bed and alarms, visiting hours, pain management, procedures, bathroom and other care routines, personal items, smoking policy, room service/diet, and visiting hours. Information on how to activate the Rapid Response Team has been discussed. Patient/Family are encouraged to report perceived risks to care and to ask questions if they do not understand what they are told or what they should do.
[2024-12-14] MEDS: OSELTAMIVIR PHOSPHATE 30 MG CAPSULE PO ×2 (08:58→21:22)
[2024-12-14] MEDS: HYDROmorphone HCL INJ (*CRX) 1 MG/ML SYR 0.5 MG IV PUSH ×2 (09:05→14:46)
[2024-12-14] MEDS: AMPICILLIN SULB 3 GM/NS 100 ML 3 GM/100 ML VIAL IVPB ×2 (09:07→14:07)
[2024-12-14 10:08] LABS: Hematocrit 29.4 % (42.0-52.0); Hemoglobin 9.3 g/dL (14.0-18.0); Mean Corpuscular HGB Conc 31.6 g/dl (32-36); Mean Corpuscular Hemoglobin 27.8 pg (26-34); Mean Corpuscular Volume 87.8 fl (80-100); Mean Platelet Volume 10.5 fl (7.4-10.4); Platelet Count Result 182 k/mm3 (150-375); Red Blood Count 3.35 M/mm3 (4.6-6.20); Red Cell Distribution Width 18.4 % (11.5-14.5); White Blood Count 8.6 K/mm3 (4.5-10.0)
[2024-12-14 10:19] LABS: Anion Gap 13 mmol/L (4-12); Blood Urea Nitrogen 23 mg/dL (9-20); Carbon Dioxide 20 mmol/L (22-30); Chloride 100 mmol/L (98-107); Estimated CRCL calculation 51 ml/min; Estimated Glomerular Filt Rate > 60; Glucose 102 mg/dL (65-110); Potassium 3.5 mmol/L (3.4-5.0); Sodium 133 mmol/L (137-145)
[2024-12-14] MEDS: DOXYCYCLINE 100 MG/NS 100 ML 100 MG/100 ML BAG IVPB (10:44)
[2024-12-14] MEDS: DICLOFENAC SODIUM 1% 100 GM GEL (*BKC) 1 APPLIC TOPICAL ×2 (10:45→17:25)
[2024-12-14] MEDS: PANTOPRAZOLE 40 MG TABLET PO (10:46)
[2024-12-14] MEDS: ARTIFICIAL TEARS OPHTH SOLN 15 ML BOTTLE 1 DROP EACH EYE (10:46)
[2024-12-14] MEDS: SPIRONOLACTONE 25 MG TABLET PO (10:47)
[2024-12-14] MEDS: CARBIDOPA/LEVODOPA 25/100 MG TABLET 3 TABLET PO ×3 (10:47→21:22)
[2024-12-14] MEDS: amLODIPine BESYLATE 2.5 MG TABLET PO (10:47)
[2024-12-14] MEDS: SENNA/DOCUSATE SODIUM TABLET 2 TAB PO (10:48)
[2024-12-14] MEDS: TAMSULOSIN HCL 0.4 MG CAPSULE 0.8 MG PO (10:48)
[2024-12-14] MEDS: FOLIC ACID 1 MG TABLET PO (10:48)
[2024-12-14] MEDS: FERROUS SULFATE 325 MG TABLET DR PO ×3 (10:49→17:25)
[2024-12-14] MEDS: ONDANSETRON HCL ODT 4 MG TABLET 8 MG PO ×3 (10:49→21:22)
[2024-12-14] MEDS: POTASSIUM CHLORIDE 10 MEQ ER TABLET PO (10:49)
[2024-12-14] MEDS: allopurinoL 100 MG TABLET PO (10:50)
[2024-12-14] MEDS: DULoxetine HCL 60 MG CAPSULE.DR PO (10:50)
[2024-12-14] MEDS: LORATADINE 10 MG TABLET PO (10:50)
[2024-12-14] MEDS: CHOLECALCIFEROL 5,000 UNITS TABLET 5000 UNITS PO (10:50)
[2024-12-14] MEDS: carvediloL 3.125 MG TABLET PO ×2 (10:51→17:24)
--- NOTE | 2024-12-14 12:23 | PCSTNOTE ---
Please refer to the Bedside Swallow Evaluation in the EMR. Please note, silent aspiration cannot be ruled out at bedside.
--- NOTE | 2024-12-14 14:08 | P.PNIM_ITS ---
Progress Note: A&P Assessment and Plan (1) Bilateral pneumonia: Qualifiers: Lung location: lower lobe of lung Pneumonia type: due to unspecified organism Qualified Code(s): J18.9 - Pneumonia, unspecified organism Code(s): J18.9 - Pneumonia, unspecified organism Status: Acute Assessment and Plan: * chest x-ray and chest CT suggesting pneumonia * patient was on Unasyn and doxycycline, we will go ahead and change antibiotic to meropenem and doxycycline per Infectious Disease pharmacist recommendation to cover for ESBL * currently on room air * respiratory panel positive for influenza A * continue incentive spirometry pep therapy * continue Tamiflu * continue Mucinex * continue DuoNebs (2) COPD (chronic obstructive pulmonary disease): Qualifiers: COPD type: unspecified COPD Qualified Code(s): J44.9 - Chronic obstructive pulmonary disease, unspecified Code(s): J44.9 - Chronic obstructive pulmonary disease, unspecified Status: Acute Assessment and Plan: see above plan of care * avoid steroids (3) Influenza A: Code(s): J10.1 - Influenza due to other identified influenza virus with other respiratory manifestations Status: Acute Assessment and Plan: * continue Tamiflu * see above plan of care (4) Chronic indwelling Strauss catheter: Code(s): Z97.8 - Presence of other specified devices Status: Acute Assessment and Plan: * UA showing cloudy urine appearance greater than 9.0 urine pH, 2+ urine protein, positive nitrate, 3+ leukocyte, 51-100 urine WBC, 4+ urine bacteria. * Blood and urine culture obtained and pending * Unasyn changed to meropenem for ESBL coverage per Infectious Disease pharmacist recommendation * Will change out Strauss catheter as this does not appear to be done while in ER (5) Urinary tract infection: Code(s): N39.0 - Urinary tract infection, site not specified Status: Acute Assessment and Plan: * see above plan of care (6) Chronic kidney disease, stage 3: Qualifiers: Chronic kidney disease stage 3 subtype: stage 3a (GFR 45-59) Qualified Code(s): N18.31 - Chronic kidney disease, stage 3a Code(s): N18.30 - Chronic kidney disease, stage 3 unspecified Status: Acute Assessment and Plan: * creatinine 0.98, EGFR greater than 60 * currently at baseline * continue to trend (7) Fecal impaction: Code(s): K56.41 - Fecal impaction Status: Acute Assessment and Plan: * patient was given fleets enema while in the ED with bowel movement in the ED * will start MiraLax * hold Senokot Time Spent With Patient Time with patient: Greater than 35 minutes Subjective Date/time seen: 12/14/24 14:08 Interval history: interval history: This is an 84-year-old male with a significant past medical history cognitive impairment, Parkinson's disease, mild pulmonary hypertension, diastolic dysfunction, COPD, MARVIN, renal cell carcinoma status post nephrectomy, BPH with chronic urinary retention and chronic indwelling Strauss catheter who presented to the hospital on 12/13/2024 with upper respiratory symptoms and weakness. Workup in the hospital included a chest x-ray which showed subsegmental left medial basilar and right basilar atelectasis consolidation. Chest/abdomen/pelvis CT shown bilateral lower lobe broncho pneumonia possibly with a component of aspiration given the presence of airway debris, hepatomegaly, fecal impaction. EKG showed a flutter tachycardia with a rate of 73, QTC 480. Initial labs showed a white blood cell count of 12.1, hemoglobin 10.6, sodium 129, chloride 92, anion gap 13, lactic acid 3.1> 1.2, magnesium 1.8, proBNP 783. A UA was obtained which showed cloudy urine appearance, greater than 9 urine pH, 2+ urine protein, positive nitrate, 3+ leukocyte, 51-100 urine WBC, 4+ urine bacteria. Respiratory panel was positive for influenza A. Blood and urine cultures were obtained and pending. Previous urine culture showed ESBL. Patient was given 2 L of normal saline, Rocephin, azithromycin, Flagyl, cefepime, breathing treatments while in the ED. he was also started on Tamiflu. Subjective: patient reporting abdominal pain and right hip pain. He denies any fever, chills, vomiting, diarrhea, chest pain. Labs and imaging reviewed. Review of Systems Review of Systems: All systems reviewed & are unremarkable except as noted in HPI and below Exam Narrative: General: In no acute distress, well nourished Head: atraumatic, no encephalopathy Eyes: PERRLA, sclera clear ENT: moist mucous membranes, nasal passages clear Neck: supple, no JVD, no adenopathy, trachea midline Cardiac: Normal S1 and S2. No murmur, gallops or friction rubs, peripheral pulses intact. Respiratory: Mild crackles bilaterally,wet productive cough, no adventitious lung sounds, currently on room air Gastrointestinal: soft, non-distended, non-tender, normoactive bowel sounds. : chronic strauss in place draining clear yellow urine with sediment Extremities: moves all extremities well, no edema Skin: clean, dry, intact. No wounds or lesions. Neuro: Alert, cranial nerves intact, no neuro deficits. Psych: normal mood, normal affect, interactive Objective Data Vital Signs Vital Signs: Vital Signs - 24 hr 12/13/24 16:46 12/13/24 17:05 12/13/24 17:21 Temperature 97.7 F Pulse Rate 75 72 127 H Respiratory Rate 16 29 H 27 H Blood Pressure 117/60 Pulse Oximetry 97 98 96 Oxygen Delivery 12/13/24 17:30 12/13/24 17:32 12/13/24 17:45 Temperature Pulse Rate 131 H 109 H Respiratory Rate 33 H 36 H 36 H Blood Pressure 122/72 Pulse Oximetry 91 96 Oxygen Delivery 12/13/24 17:46 12/13/24 18:00 12/13/24 18:01 Temperature Pulse Rate 72 79 78 Respiratory Rate 22 H 30 H 30 H Blood Pressure 118/67 123/69 Pulse Oximetry 98 100 99 Oxygen Delivery 12/13/24 18:15 12/13/24 18:16 12/13/24 18:30 Temperature Pulse Rate 106 H 85 75 Respiratory Rate 34 H 36 H 33 H Blood Pressure 129/77 Pulse Oximetry 96 Oxygen Delivery 12/13/24 18:48 12/13/24 19:00 12/13/24 19:01 Temperature Pulse Rate 110 H 142 H 133 H Respiratory Rate 40 H 44 H 43 H Blood Pressure 146/92 H Pulse Oximetry 100 Oxygen Delivery 12/13/24 19:37 12/13/24 19:38 12/13/24 19:45 Temperature Pulse Rate 118 H 107 H 85 Respiratory Rate 46 H 42 H 26 H Blood Pressure 118/65 Pulse Oximetry 100 98 Oxygen Delivery 12/13/24 19:46 12/13/24 20:00 12/13/24 20:01 Temperature Pulse Rate 85 95 102 H Respiratory Rate 46 H 22 H 21 H Blood Pressure 97/65 L 111/87 Pulse Oximetry 94 95 Oxygen Delivery 12/13/24 20:17 12/13/24 20:30 12/13/24 20:31 Temperature Pulse Rate 88 111 H 105 H Respiratory Rate 26 H 44 H 44 H Blood Pressure 120/54 L Pulse Oximetry 95 96 Oxygen Delivery 12/13/24 20:45 12/13/24 21:00 12/13/24 21:17 Temperature Pulse Rate 108 H 86 96 Respiratory Rate 44 H 44 H 49 H Blood Pressure Pulse Oximetry 100 99 95 Oxygen Delivery 12/13/24 21:30 12/13/24 21:31 12/13/24 21:47 Temperature Pulse Rate 92 94 101 H Respiratory Rate 38 H 43 H 38 H Blood Pressure Pulse Oximetry 99 100 97 Oxygen Delivery 12/13/24 22:00 12/13/24 22:01 12/13/24 22:21 Temperature Pulse Rate 91 141 H 117 H Respiratory Rate 36 H 41 H 38 H Blood Pressure 108/86 Pulse Oximetry 96 100 Oxygen Delivery 12/13/24 22:30 12/13/24 22:31 12/13/24 22:45 Temperature Pulse Rate 89 110 H 103 H Respiratory Rate 33 H 38 H 35 H Blood Pressure 118/77 Pulse Oximetry 95 Oxygen Delivery 12/13/24 22:51 12/13/24 23:00 12/13/24 23:01 Temperature Pulse Rate 119 H 103 H 118 H Respiratory Rate 30 H 36 H 36 H Blood Pressure 109/85 Pulse Oximetry 100 100 Oxygen Delivery 12/13/24 23:15 12/13/24 23:30 12/13/24 23:31 Temperature Pulse Rate 113 H 96 96 Respiratory Rate 40 H 39 H 20 Blood Pressure 136/114 H Pulse Oximetry 100 Oxygen Delivery 12/13/24 23:45 12/13/24 23:50 12/14/24 00:00 Temperature Pulse Rate 108 H 77 93 Respiratory Rate 32 H 22 H 30 H Blood Pressure Pulse Oximetry 100 Oxygen Delivery 12/14/24 00:15 12/14/24 00:44 12/14/24 00:45 Temperature Pulse Rate 90 100 Respiratory Rate 26 H 19 23 H Blood Pressure 107/86 Pulse Oximetry 100 100 Oxygen Delivery 12/14/24 01:00 12/14/24 01:01 12/14/24 02:00 Temperature Pulse Rate 93 94 98 Respiratory Rate 26 H 26 H 24 H Blood Pressure 142/72 H Pulse Oximetry 100 Oxygen Delivery 12/14/24 02:01 12/14/24 02:20 12/14/24 02:30 Temperature Pulse Rate 99 90 96 Respiratory Rate 27 H 26 H 25 H Blood Pressure 124/78 Pulse Oximetry 100 98 Oxygen Delivery 12/14/24 02:31 12/14/24 02:32 12/14/24 02:37 Temperature Pulse Rate 108 H 93 114 H Respiratory Rate 26 H 24 H 23 H Blood Pressure 111/83 Pulse Oximetry 100 100 Oxygen Delivery 12/14/24 02:45 12/14/24 03:00 12/14/24 05:00 Temperature 100.7 F H Pulse Rate 115 H 87 Respiratory Rate 26 H 15 Blood Pressure 117/85 Pulse Oximetry 100 100 Oxygen Delivery Room Air 12/14/24 06:00 12/14/24 08:00 12/14/24 08:15 Temperature 98.0 F Pulse Rate 75 76 Respiratory Rate 18 20 Blood Pressure 107/58 L Pulse Oximetry 96 Oxygen Delivery Room Air 12/14/24 10:51 Temperature Pulse Rate 76 Respiratory Rate Blood Pressure Pulse Oximetry Oxygen Delivery Intake/Output Intake/Output: Intake & Output 12/11/24 12/12/24 12/13/24 12/14/24 23:59 23:59 23:59 23:59 Intake Total 2400 1340 Balance 2400 1340 Meds/Results Medications: Active Medications Generic Name Dose Route Start Last Admin Trade Name Freq PRN Reason Stop Dose Admin Acetaminophen 650 mg 12/14/24 08:59 Acetaminophen 325 Mg Tablet PO Q4H PRN fever or pain 1-3 Hydrocodone Bitart/Acetaminophen 1 tab 12/14/24 08:59 Hydrocodone/Acetaminophen (*Crx) 5-325 Mg Tablet PO Q8H PRN Pain (Scale Score 4-6) Albuterol 2.5 mg 12/14/24 02:00 12/14/24 08:15 Albuterol Sulfate Neb 2.5 Mg/3 Ml Inh INHALATION 2.5 mg Q6HRT TENISHA Administration Allopurinol 100 mg 12/14/24 09:00 12/14/24 10:50 Allopurinol 100 Mg Tablet PO 100 mg DAILY TENISHA Administration Amlodipine Besylate 2.5 mg 12/14/24 09:00 12/14/24 10:47 Amlodipine Besylate 2.5 Mg Tablet PO 2.5 mg QAM TENISHA Administration Artificial Tears 1 drop 12/14/24 08:59 12/14/24 10:46 Artificial Tears Ophth Soln 15 Ml Bottle EACH EYE 1 drop BID PRN Administration dry eye(s) Ascorbic Acid 500 mg 12/14/24 17:00 Ascorbic Acid 500 Mg Tablet PO BID [facility] Atorvastatin Calcium 80 mg 12/14/24 21:00 Atorvastatin 40 Mg Tablet PO HS TENISHA Bisacodyl 10 mg 12/14/24 08:59 Bisacodyl 10 Mg Suppository RECTAL DAILY PRN Constipation Carbidopa/Levodopa 3 tablet 12/14/24 09:20 12/14/24 14:00 Carbidopa/Levodopa 25/100 Mg Tablet PO 3 tablet Q8HR [facility] Administration Carvedilol 3.125 mg 12/14/24 09:00 12/14/24 10:51 Carvedilol 3.125 Mg Tablet PO 3.125 mg BID [facility] Administration Cyanocobalamin 1,000 mcg 12/15/24 09:00 Cyanocobalamin 1,000 Mcg Tablet PO DAILY [facility] Diclofenac Sodium 1 applic 12/14/24 09:00 12/14/24 10:45 Diclofenac Sodium 1% 100 Gm Gel (*Bkc) TOPICAL 1 applic BID [facility] Administration Duloxetine HCl 60 mg 12/14/24 09:00 12/14/24 10:50 Duloxetine Hcl 60 Mg Capsule.Dr PO 60 mg DAILY [facility] Administration Ferrous Sulfate 325 mg 12/14/24 09:00 12/14/24 13:59 Ferrous Sulfate [address] PO 325 mg TID [facility] Administration Finasteride 5 mg 12/15/24 09:00 Finasteride 5 Mg Tablet PO DAILY [facility] Folic Acid 1 mg 12/14/24 09:00 12/14/24 10:48 Folic Acid 1 Mg Tablet PO 1 mg DAILY [facility] Administration Furosemide 40 mg 12/15/24 09:00 Furosemide 40 Mg Tablet PO DAILY [facility] Gabapentin 300 mg 12/14/24 17:00 Gabapentin 300 Mg Capsule PO BID TENISHA Guaifenesin/Dextromethorphan 10 ml 12/14/24 08:59 Guaifenesin/Dextromethorphan 10 Ml Udc PO Q6H PRN cough Hydromorphone HCl 0.5 mg 12/14/24 00:13 12/14/24 09:05 Hydromorphone Hcl Inj (*Crx) 1 Mg/Ml Syr IV PUSH 0.5 mg Q4H PRN Administration Pain Rated 7-10 Sodium Chloride 1,000 mls @ 125 mls/hr 12/14/24 00:15 12/14/24 10:43 Normal Saline Iv IV CONT 125 mls/hr .Q8H TENISHA Administration Ampicillin Sodium/Sulbactam Sodium 3 gm in 100 mls @ 200 mls/hr 12/14/24 09:00 12/14/24 14:07 Unasyn 3 Gm/Ns 100 Ml IVPB 200 mls/hr Q6H TENISHA Administration Doxycycline Hyclate 100 mg in 100 mls @ 100 mls/hr 12/14/24 09:00 12/14/24 10:44 Vibramycin 100 Mg/Ns 100 Ml IVPB 100 mls/hr Q12H TENISHA Administration Lactulose 30 gm 12/14/24 09:00 12/14/24 11:09 Lactulose 20 Gm/30 Ml Udc PO 01/13/25 08:59 Not Given DAILY [facility] Levothyroxine Sodium 100 mcg 12/15/24 06:30 Levothyroxine Sodium 100 Mcg Tablet PO DAILY@0630 [facility] Lidocaine 1 patch 12/14/24 09:00 12/14/24 11:09 Lidocaine 5% Patch TOPICAL Not Given DAILY [facility] Loratadine 10 mg 12/14/24 09:00 12/14/24 10:50 Loratadine 10 Mg Tablet PO 10 mg DAILY TENISHA Administration Magnesium Citrate 296 ml 12/14/24 08:59 Magnesium Citrate 300 Ml Btl PO DAILY PRN constipation Ondansetron HCl 8 mg 12/14/24 09:00 12/14/24 14:01 Ondansetron Hcl Odt 4 Mg Tablet PO 8 mg Q8HR TENISHA Administration Oseltamivir Phosphate 30 mg 12/13/24 21:00 12/14/24 08:58 Oseltamivir Phosphate 30 Mg Capsule PO 12/18/24 20:59 30 mg Q12HR TENISHA Administration Pantoprazole Sodium 40 mg 12/14/24 09:15 12/14/24 10:46 Pantoprazole 40 Mg Tablet PO 01/13/25 09:14 40 mg DAILY TENISHA Administration Potassium Chloride 10 meq 12/14/24 09:00 12/14/24 10:49 Potassium Chloride 10 Meq Er Tablet PO 10 meq DAILY TENISHA Administration Fluticasone/Salmeterol 2 puff 12/14/24 08:00 Fluticasone/Salmeterol 115-21 Mcg Inhaler 1 Puff INHALATION Q12HRT [facility] Senna/Docusate Sodium 2 tab 12/14/24 09:00 12/14/24 10:48 Senna/Docusate Sodium Tablet PO 2 tab BID TENISHA Administration Spironolactone 25 mg 12/14/24 09:00 12/14/24 10:47 Spironolactone 25 Mg Tablet PO 25 mg DAILY TENISHA Administration Tamsulosin HCl 0.8 mg 12/14/24 09:00 12/14/24 10:48 Tamsulosin Hcl 0.4 Mg Capsule PO 0.8 mg DAILY TENISHA Administration Vitamin D 5,000 units 12/14/24 09:00 12/14/24 10:50 Cholecalciferol 5,000 Units Tablet PO 5,000 units DAILY TENISHA Administration Radiology Results: ITS Impressions Chest X-Ray 12/13/24 18:41 IMPRESSION: Subsegmental left medial basilar and right basilar atelectasis/consolidation. Chest/Abdomen/Pelvis CT 12/13/24 20:01 IMPRESSION: Likely bilateral lower lobe bronchopneumonia, possibly with a component of aspiration given the presence of airway debris. Recommend low-dose noncontrast CT of the chest after the resolution of acute symptoms to exclude persistent pulmonary nodules. Mediastinal lymphadenopathy. Hepatomegaly. Possible cystitis. Possible fecal impaction. Labs Labs: Laboratory Results - last 24 hr 12/13/24 12/13/24 12/13/24 17:25 17:55 19:43 WBC 12.1 H RBC 3.79 L Hgb 10.6 L Hct 32.7 L MCV 86.3 MCH 28.0 MCHC 32.4 RDW 18.4 H Plt Count 203 MPV 10.6 H Immature Gran % (Auto) 0.7 H Neut % (Auto) 43.6 L Lymph % (Auto) 51.3 H [place] % (Auto) 3.4 Eos % (Auto) 0.4 Baso % (Auto) 0.6 Lymph # (Auto) 6.20 H [place] # (Auto) 0.4 Eos # (Auto) 0.1 Baso # (Auto) 0.1 Abs Immat Gran (auto) 0.09 H Absolute Neuts (auto) 5.3 Absolute Nucleated RBC 0.000 Nucleated RBC % 0.0 Platelet Estimate Adequate % Immature Plt Fraction 4.4 Anisocytosis 2+ Schistocytes None seen PT 14.3 INR 1.1 APTT 27.6 Puncture Site ABG pH ABG pCO2 ABG pO2 ABG PO2/FiO2 Ratio ABG HCO3 ABG O2 Saturation ABG O2 Content ABG Base Excess A-a Gradient Oxyhemoglobin Total Hemoglobin O2 Delivery Device O2 Liters/Min FiO2 Sodium 129 L Potassium 3.9 Chloride 92 L Carbon Dioxide 24 Anion Gap 13 H BUN 28 H D Creatinine 1.09 Estim Creat Clear Calc 44 Estimated GFR > 60 Glucose 111 H Lactic Acid Calcium 9.1 Magnesium 1.8 Total Bilirubin 1.0 AST 25 ALT 9 Alkaline Phosphatase 85 NT-Pro-B Natriuret Pep 783 H Total Protein 7.0 Albumin 3.6 Lipase 287 Urine Color Yellow Urine Appearance Cloudy H Urine pH >=9.0 H Ur Specific [place] 1.013 Urine Protein 2+ H Urine Glucose (UA) Negative Urine Ketones Negative Ur Blood (Man) Negative Urine Nitrate Positive H Urine Bilirubin Negative Urine Urobilinogen 0.2 Leukocyte Esterase Rfl 3+ H Urine RBC 0-2 Urine WBC 51-100 H Ur Squamous Epith Cells None seen Urine Bacteria 4+ H Urine Casts 0-2 Influenza A (RT-PCR) Positive A Influenza B (RT-PCR) Negative RSV (RT-PCR) Negative SARS-CoV-2 RNA (RT-PCR) Negative 12/13/24 12/13/24 12/14/24 20:47 20:51 02:03 WBC RBC Hgb Hct MCV MCH MCHC RDW Plt Count MPV Immature Gran % (Auto) Neut % (Auto) Lymph % (Auto) [place] % (Auto) Eos % (Auto) Baso % (Auto) Lymph # (Auto) [place] # (Auto) Eos # (Auto) Baso # (Auto) Abs Immat Gran (auto) Absolute Neuts (auto) Absolute Nucleated RBC Nucleated RBC % Platelet Estimate % Immature Plt Fraction Anisocytosis Schistocytes PT INR APTT Puncture Site Right brachial ABG pH 7.540 H* ABG pCO2 20.0 L* ABG pO2 61.0 L ABG PO2/FiO2 Ratio 2.90 ABG HCO3 16.7 L ABG O2 Saturation 94.5 L ABG O2 Content 13.8 L ABG Base Excess -4.1 A-a Gradient 64.8 Oxyhemoglobin 91.7 Total Hemoglobin 10.7 L O2 Delivery Device Room air O2 Liters/Min Not Reportable FiO2 21 Sodium Potassium Chloride Carbon Dioxide Anion Gap BUN Creatinine Estim Creat Clear Calc Estimated GFR Glucose Lactic Acid 3.1 H 1.2 Calcium Magnesium Total Bilirubin AST ALT Alkaline Phosphatase NT-Pro-B Natriuret Pep Total Protein Albumin Lipase Urine Color Urine Appearance Urine pH Ur Specific [place] Urine Protein Urine Glucose (UA) Urine Ketones Ur Blood (Man) Urine Nitrate Urine Bilirubin Urine Urobilinogen Leukocyte Esterase Rfl Urine RBC Urine WBC Ur Squamous Epith Cells Urine Bacteria Urine Casts Influenza A (RT-PCR) Influenza B (RT-PCR) RSV (RT-PCR) SARS-CoV-2 RNA (RT-PCR) 12/14/24 09:13 WBC 8.6 RBC 3.35 L Hgb 9.3 L Hct 29.4 L MCV 87.8 MCH 27.8 MCHC 31.6 L RDW 18.4 H Plt Count 182 MPV 10.5 H Immature Gran % (Auto) Neut % (Auto) Lymph % (Auto) [place] % (Auto) Eos % (Auto) Baso % (Auto) Lymph # (Auto) [place] # (Auto) Eos # (Auto) Baso # (Auto) Abs Immat Gran (auto) Absolute Neuts (auto) Absolute Nucleated RBC Nucleated RBC % Platelet Estimate % Immature Plt Fraction Anisocytosis Schistocytes PT INR APTT Puncture Site ABG pH ABG pCO2 ABG pO2 ABG PO2/FiO2 Ratio ABG HCO3 ABG O2 Saturation ABG O2 Content ABG Base Excess A-a Gradient Oxyhemoglobin Total Hemoglobin O2 Delivery Device O2 Liters/Min FiO2 Sodium 133 L Potassium 3.5 Chloride 100 Carbon Dioxide 20 L Anion Gap 13 H BUN 23 H Creatinine 0.98 Estim Creat Clear Calc 51 Estimated GFR > 60 Glucose 102 Lactic Acid Calcium 8.0 L Magnesium Total Bilirubin AST ALT Alkaline Phosphatase NT-Pro-B Natriuret Pep Total Protein Albumin Lipase Urine Color Urine Appearance Urine pH Ur Specific [place] Urine Protein Urine Glucose (UA) Urine Ketones Ur Blood (Man) Urine Nitrate Urine Bilirubin Urine Urobilinogen Leukocyte Esterase Rfl Urine RBC Urine WBC Ur Squamous Epith Cells Urine Bacteria Urine Casts Influenza A (RT-PCR) Influenza B (RT-PCR) RSV (RT-PCR) SARS-CoV-2 RNA (RT-PCR) Quality VTE Prophylaxis VTE prophylaxis: mechanical ordered (SCDs)
[2024-12-14] MEDS: MEROPENEM 1 GM/NS 100 ML 1 GM/100 ML BAG IVPB ×2 (14:38→21:22)
[2024-12-14] MEDS: ASCORBIC ACID 500 MG TABLET PO (17:24)
[2024-12-14] MEDS: GABAPENTIN 300 MG CAPSULE PO (17:24)
[2024-12-14] MEDS: polyethylene glycoL 3350 17 GM POWD.PACK PO (17:25)
[2024-12-14] MEDS: FLUTICASONE/SALMETEROL 115-21 MCG INHALER 1 PUFF 2 PUFF INHALATION (21:00)
[2024-12-14] MEDS: ATORVASTATIN 40 MG TABLET 80 MG PO (21:21)
[2024-12-14] MEDS: DOXYCYCLINE HYCLATE 100 MG TABLET PO (21:22)
[2024-12-14] MEDS: guaiFENesin 12 HR 600 MG TABCR PO (21:22)
[2024-12-15] VITALS (11 sets, daily range): BP systolic 109–114; BP diastolic 54–84; PULSE 65–70; RESP 18–20; TEMP 36.2–36.4; O2SAT 95–100
[2024-12-15] MEDS: LEVOTHYROXINE SODIUM 100 MCG TABLET PO (05:39)
[2024-12-15] MEDS: ONDANSETRON HCL ODT 4 MG TABLET 8 MG PO ×3 (05:40→21:18)
[2024-12-15] MEDS: MEROPENEM 1 GM/NS 100 ML 1 GM/100 ML BAG IVPB (05:40)
[2024-12-15] MEDS: CARBIDOPA/LEVODOPA 25/100 MG TABLET 3 TABLET PO ×3 (05:40→21:18)
[2024-12-15] MEDS: DOXYCYCLINE HYCLATE 100 MG TABLET PO ×2 (05:40→18:23)
--- NOTE | 2024-12-15 07:22 | PM.IMPN ---
Progress Note: A&P Assessment and Plan (1) Bilateral pneumonia: Qualifiers: Lung location: lower lobe of lung Pneumonia type: due to unspecified organism Qualified Code(s): J18.9 - Pneumonia, unspecified organism Code(s): J18.9 - Pneumonia, unspecified organism Status: Acute Assessment and Plan: chest x-ray and chest CT suggesting pneumonia patient was on Unasyn and doxycycline, we will go ahead and change antibiotic to meropenem and doxycycline per Infectious Disease pharmacist recommendation to cover for ESBL currently on room air respiratory panel positive for influenza A continue incentive spirometry pep therapy continue Tamiflu continue Mucinex continue DuoNebs 12/15 No change to current treatment plan (2) COPD (chronic obstructive pulmonary disease): Qualifiers: COPD type: unspecified COPD Qualified Code(s): J44.9 - Chronic obstructive pulmonary disease, unspecified Code(s): J44.9 - Chronic obstructive pulmonary disease, unspecified Status: Acute Assessment and Plan: see above plan of care avoid steroids 12/15 13 (3) Influenza A: Code(s): J10.1 - Influenza due to other identified influenza virus with other respiratory manifestations Status: Acute Assessment and Plan: continue Tamiflu see above plan of care 12/15 No change (4) Chronic indwelling Strauss catheter: Code(s): Z97.8 - Presence of other specified devices Status: Acute Assessment and Plan: UA showing cloudy urine appearance greater than 9.0 urine pH, 2+ urine protein, positive nitrate, 3+ leukocyte, 51-100 urine WBC, 4+ urine bacteria. Blood and urine culture obtained and pending Unasyn changed to meropenem for ESBL coverage per Infectious Disease pharmacist recommendation Will change out Strauss catheter as this does not appear to be done while in ER 12/15 Meropenem changed to Augmentin Urine culture showing Proteus mirabilis on final read Blood cultures still showing no growth to date on preliminary read (5) Urinary tract infection: Code(s): N39.0 - Urinary tract infection, site not specified Status: Acute Assessment and Plan: see above plan of care (6) Chronic kidney disease, stage 3: Qualifiers: Chronic kidney disease stage 3 subtype: stage 3a (GFR 45-59) Qualified Code(s): N18.31 - Chronic kidney disease, stage 3a Code(s): N18.30 - Chronic kidney disease, stage 3 unspecified Status: Acute Assessment and Plan: creatinine 0.98, EGFR greater than 60 currently at baseline continue to trend 12/15 No change to current treatment plan (7) Fecal impaction: Code(s): K56.41 - Fecal impaction Status: Acute Assessment and Plan: patient was given fleets enema while in the ED with bowel movement in the ED will start MiraLax hold Senokot 12/15 No change to current treatment plan Time Spent With Patient Time with patient: 25 - 35 minutes Subjective Date/time seen: 12/15/24 07:22 Interval history: Interval history: This is an 84-year-old male with a significant past medical history cognitive impairment, Parkinson's disease, mild pulmonary hypertension, diastolic dysfunction, COPD, MARVIN, renal cell carcinoma status post nephrectomy, BPH with chronic urinary retention and chronic indwelling Strauss catheter who presented to the hospital on 12/13/2024 with upper respiratory symptoms and weakness. Workup in the hospital included a chest x-ray which showed subsegmental left medial basilar and right basilar atelectasis consolidation. Chest/abdomen/pelvis CT shown bilateral lower lobe broncho pneumonia possibly with a component of aspiration given the presence of airway debris, hepatomegaly, fecal impaction. EKG showed a flutter tachycardia with a rate of 73, QTC 480. Initial labs showed a white blood cell count of 12.1, hemoglobin 10.6, sodium 129, chloride 92, anion gap 13, lactic acid 3.1> 1.2, magnesium 1.8, proBNP 783. A UA was obtained which showed cloudy urine appearance, greater than 9 urine pH, 2+ urine protein, positive nitrate, 3+ leukocyte, 51-100 urine WBC, 4+ urine bacteria. Respiratory panel was positive for influenza A. Blood and urine cultures were obtained and pending. Previous urine culture showed ESBL. Patient was given 2 L of normal saline, Rocephin, azithromycin, Flagyl, cefepime, breathing treatments while in the ED. he was also started on Tamiflu. Subjective: Patient denies any new complaints today. Labs reviewed. Review of Systems Review of Systems: All systems reviewed & are unremarkable except as noted in HPI and below Exam Narrative: General: In no acute distress, well nourished Cardiac: Normal S1 and S2. No murmur, gallops or friction rubs, peripheral pulses intact. Respiratory: Rhonchi and coarse throughout all lung leyva, no adventitious lung sounds, currently on room air Gastrointestinal: soft, non-distended, non-tender, normoactive bowel sounds. : chronic strauss in place draining clear yellow urine with sediment Neuro: Alert Objective Data Vital Signs Vital Signs: Vital Signs - 24 hr 12/14/24 08:00 12/14/24 08:15 12/14/24 10:51 Temperature Pulse Rate 76 76 Respiratory Rate 20 Blood Pressure Pulse Oximetry Oxygen Delivery Room Air 12/14/24 14:00 12/14/24 14:50 12/14/24 14:50 Temperature 97.2 F L Pulse Rate 68 66 Respiratory Rate 18 18 Blood Pressure 113/71 Pulse Oximetry 99 95 Oxygen Delivery Room Air 12/14/24 17:24 12/14/24 20:00 12/14/24 21:00 Temperature Pulse Rate 68 66 Respiratory Rate 19 Blood Pressure Pulse Oximetry Oxygen Delivery Room Air 12/14/24 21:10 12/14/24 21:21 12/14/24 22:00 Temperature 97.4 F L Pulse Rate 68 71 Respiratory Rate 19 22 H Blood Pressure 120/53 L Pulse Oximetry 99 95 Oxygen Delivery Room Air 12/15/24 06:00 Temperature 97.5 F L Pulse Rate 68 Respiratory Rate 18 Blood Pressure 109/75 Pulse Oximetry 96 Oxygen Delivery Intake/Output Intake/Output: Intake & Output 12/12/24 12/13/24 12/14/24 12/15/24 23:59 23:59 23:59 23:59 Intake Total 2400 1940 200 Output Total 600 650 Balance 2400 1340 -450 Meds/Results Medications: Active Medications Generic Name Dose Route Start Last Admin Trade Name Freq PRN Reason Stop Dose Admin Acetaminophen 650 mg 12/14/24 08:59 Acetaminophen 325 Mg Tablet PO Q4H PRN fever or pain 1-3 Hydrocodone Bitart/Acetaminophen 1 tab 12/14/24 08:59 Hydrocodone/Acetaminophen (*Crx) 5-325 Mg Tablet PO Q8H PRN Pain (Scale Score 4-6) Albuterol 2.5 mg 12/14/24 02:00 12/15/24 04:00 Albuterol Sulfate Neb 2.5 Mg/3 Ml Inh INHALATION Not Given Q6HRT [facility] Allopurinol 100 mg 12/14/24 09:00 12/14/24 10:50 Allopurinol 100 Mg Tablet PO 100 mg DAILY TENISHA Administration Amlodipine Besylate 2.5 mg 12/14/24 09:00 12/14/24 10:47 Amlodipine Besylate 2.5 Mg Tablet PO 2.5 mg QAM TENISHA Administration Artificial Tears 1 drop 12/14/24 08:59 12/14/24 10:46 Artificial Tears Ophth Soln 15 Ml Bottle EACH EYE 1 drop BID PRN Administration dry eye(s) Ascorbic Acid 500 mg 12/14/24 17:00 12/14/24 17:24 Ascorbic Acid 500 Mg Tablet PO 500 mg BID TENISHA Administration Atorvastatin Calcium 80 mg 12/14/24 21:00 12/14/24 21:21 Atorvastatin 40 Mg Tablet PO 80 mg HS [facility] Administration Bisacodyl 10 mg 12/14/24 08:59 Bisacodyl 10 Mg Suppository RECTAL DAILY PRN Constipation Carbidopa/Levodopa 3 tablet 12/14/24 09:20 12/15/24 05:40 Carbidopa/Levodopa 25/100 Mg Tablet PO 3 tablet Q8HR TENISHA Administration Carvedilol 3.125 mg 12/14/24 09:00 12/14/24 17:24 Carvedilol 3.125 Mg Tablet PO 3.125 mg BID [facility] Administration Cyanocobalamin 1,000 mcg 12/15/24 09:00 Cyanocobalamin 1,000 Mcg Tablet PO DAILY [facility] Diclofenac Sodium 1 applic 12/14/24 09:00 12/14/24 17:25 Diclofenac Sodium 1% 100 Gm Gel (*Bkc) TOPICAL 1 applic BID TENISHA Administration Doxycycline Hyclate 100 mg 12/14/24 19:00 12/15/24 05:40 Doxycycline Hyclate 100 Mg Tablet PO 12/18/24 19:01 100 mg Q12H TENISHA Administration Duloxetine HCl 60 mg 12/14/24 09:00 12/14/24 10:50 Duloxetine Hcl 60 Mg Capsule.Dr PO 60 mg DAILY TENISHA Administration Ferrous Sulfate 325 mg 12/14/24 09:00 12/14/24 17:25 Ferrous Sulfate [address] PO 325 mg TID TENISHA Administration Finasteride 5 mg 12/15/24 09:00 Finasteride 5 Mg Tablet PO DAILY [facility] Folic Acid 1 mg 12/14/24 09:00 12/14/24 10:48 Folic Acid 1 Mg Tablet PO 1 mg DAILY TENISHA Administration Furosemide 40 mg 12/15/24 09:00 Furosemide 40 Mg Tablet PO DAILY [facility] Gabapentin 300 mg 12/14/24 17:00 12/14/24 17:24 Gabapentin 300 Mg Capsule PO 300 mg BID TENISHA Administration Guaifenesin 600 mg 12/14/24 21:00 12/14/24 21:22 Guaifenesin 12 Hr 600 Mg Tabcr PO 600 mg Q12HR TENISHA Administration Guaifenesin/Dextromethorphan 10 ml 12/14/24 08:59 Guaifenesin/Dextromethorphan 10 Ml Udc PO Q6H PRN cough Hydromorphone HCl 0.5 mg 12/14/24 00:13 12/14/24 14:46 Hydromorphone Hcl Inj (*Crx) 1 Mg/Ml Syr IV PUSH 0.5 mg Q4H PRN Administration Pain Rated 7-10 Meropenem 1 gm in 100 mls @ 200 mls/hr 12/14/24 14:25 12/15/24 06:10 IVPB Infused Q8HR [facility] Infusion Lactulose 30 gm 12/14/24 09:00 12/14/24 11:09 Lactulose 20 Gm/30 Ml Udc PO 01/13/25 08:59 Not Given DAILY [facility] Levothyroxine Sodium 100 mcg 12/15/24 06:30 12/15/24 05:39 Levothyroxine Sodium 100 Mcg Tablet PO 100 mcg DAILY@0630 [facility] Administration Lidocaine 1 patch 12/14/24 09:00 12/14/24 11:09 Lidocaine 5% Patch TOPICAL Not Given DAILY [facility] Loratadine 10 mg 12/14/24 09:00 12/14/24 10:50 Loratadine 10 Mg Tablet PO 10 mg DAILY [facility] Administration Magnesium Citrate 296 ml 12/14/24 08:59 Magnesium Citrate 300 Ml Btl PO DAILY PRN constipation Ondansetron HCl 8 mg 12/14/24 09:00 12/15/24 05:40 Ondansetron Hcl Odt 4 Mg Tablet PO 8 mg Q8HR T[facility]ISHA Administration Oseltamivir Phosphate 30 mg 12/13/24 21:00 12/14/24 21:22 Oseltamivir Phosphate 30 Mg Capsule PO 12/18/24 20:59 30 mg Q12HR [facility]HA Administration Pantoprazole Sodium 40 mg 12/14/24 09:15 12/14/24 10:46 Pantoprazole 40 Mg Tablet PO 01/13/25 09:14 40 mg DAILY TENISHA Administration Polyethylene Glycol 17 gm 12/14/24 17:10 12/14/24 17:25 Polyethylene Glycol 3350 17 Gm Powd.Pack PO 17 gm QAM TENISHA Administration Potassium Chloride 10 meq 12/14/24 09:00 12/14/24 10:49 Potassium Chloride 10 Meq Er Tablet PO 10 meq DAILY TENISHA Administration Fluticasone/Salmeterol 2 puff 12/14/24 08:00 12/14/24 21:00 Fluticasone/Salmeterol 115-21 Mcg Inhaler 1 Puff INHALATION 2 puff Q12HRT [facility]ENISHA Administration Senna/Docusate Sodium 2 tab 12/14/24 09:00 12/14/24 17:43 Senna/Docusate Sodium Tablet PO Not Given BID [facility]ISHA Spironolactone 25 mg 12/14/24 09:00 12/14/24 10:47 Spironolactone 25 Mg Tablet PO 25 mg DAILY [facility]IS[facility] Administration Tamsulosin HCl 0.8 mg 12/14/24 09:00 12/14/24 10:48 Tamsulosin Hcl 0.4 Mg Capsule PO 0.8 mg DAILY [facility]ISHA Administration Vitamin D 5,000 units 12/14/24 09:00 12/14/24 10:50 Cholecalciferol 5,000 Units Tablet PO 5,000 units DAILY TENISHA Administration Radiology Results: ITS Impressions Chest X-Ray 12/13/24 18:41 IMPRESSION: Subsegmental left medial basilar and right basilar atelectasis/consolidation. Chest/Abdomen/Pelvis CT 12/13/24 20:01 IMPRESSION: Likely bilateral lower lobe bronchopneumonia, possibly with a component of aspiration given the presence of airway debris. Recommend low-dose noncontrast CT of the chest after the resolution of acute symptoms to exclude persistent pulmonary nodules. Mediastinal lymphadenopathy. Hepatomegaly. Possible cystitis. Possible fecal impaction. Labs Labs: Laboratory Results - last 24 hr 12/14/24 09:13 WBC 8.6 RBC 3.35 L Hgb 9.3 L Hct 29.4 L MCV 87.8 MCH 27.8 MCHC 31.6 L RDW 18.4 H Plt Count 182 MPV 10.5 H Sodium 133 L Potassium 3.5 Chloride 100 Carbon Dioxide 20 L Anion Gap 13 H BUN 23 H Creatinine 0.98 Estim Creat Clear Calc 51 Estimated GFR > 60 Glucose 102 Calcium 8.0 L Quality VTE Prophylaxis VTE prophylaxis: mechanical ordered (SCDs)
--- NOTE | 2024-12-15 07:35 | P.CDI_ITS ---
CDI Query Clarification Request BMI: 24.6 Nutritional Diagnostic Statement: Please refer to the comprehensive nutrition assessment for further information. If you agree with diagnosis of Severe protein calorie malnutrition related to chronic loss of appetite, covid as evidenced by weight loss 13%/1 month; intakes <75% needs> 1 month; severe fat loss and moderate muscle wasting .Please specify severity if known: * Mild * Moderate * Severe * Other/Unknown <Judy Gonzalez RN - Last Filed: 12/15/24 07:36> Clarified Diagnosis Clarified Diagnosis: Patient was noted to have severe protein calorie malnutrition and patient encouraged to increase p.o. intake as well as supplement with ensure and live t.i.d. <Trish Amor APRN - Last Filed: 12/20/24 14:59>
--- NOTE | 2024-12-15 07:36 | P.CDI_ITS ---
CDI Query Clarification Request Sepsis has been documented by ER provider but not in progress note. Please clarify if Sepsis has been ruled in or ruled out. Clarification request - UTI has been documented, chronic indwelling strauss catheter documented. Please clarify if UTI is: * due to/associated with chronic indwelling strauss catheter * not due to/associated with chronic indwelling strauss catheter * unable to determine Risk Factors:Chronic strauss cath Clinical Indicators: * UA showing cloudy urine appearance greater than 9.0 urine pH, 2+ urine protein, positive nitrate, 3+ leukocyte, 51-100 urine WBC, 4+ urine bacteria. * Blood and urine culture obtained and pending * Unasyn changed to meropenem for ESBL coverage per Infectious Disease pharmacist recommendation * Will change out Strauss catheter as this does not appear to be done while in ER Treatment: IV abx <Judy Gonzalez RN - Last Filed: 12/15/24 08:00> Clarified Diagnosis Clarified Diagnosis: acute UTI was likely complicated by chronic indwelling Strauss catheter. <Trish Amor APRN - Last Filed: 12/20/24 14:58>
--- NOTE | 2024-12-15 07:36 | WPDCDIQUERY2 ---
CDI Query Clarification Request Sepsis has been documented by ER provider but not in progress note. Please clarify if Sepsis has been ruled in or ruled out. Clarification request - UTI has been documented, chronic indwelling strauss catheter documented. Please clarify if UTI is: due to/associated with chronic indwelling strauss catheter not due to/associated with chronic indwelling strauss catheter unable to determine Risk Factors:Chronic strauss cath Clinical Indicators: UA showing cloudy urine appearance greater than 9.0 urine pH, 2+ urine protein, positive nitrate, 3+ leukocyte, 51-100 urine WBC, 4+ urine bacteria. Blood and urine culture obtained and pending Unasyn changed to meropenem for ESBL coverage per Infectious Disease pharmacist recommendation Will change out Strauss catheter as this does not appear to be done while in ER Treatment: IV abx <Judy Gonzalez RN - Last Filed: 12/15/24 08:00> Clarified Diagnosis Clarified Diagnosis: acute UTI was likely complicated by chronic indwelling Strauss catheter. <Trish Amor APRN - Last Filed: 12/20/24 14:58>
[2024-12-15 07:44] LABS: Potassium 3.5 mmol/L (3.4-5.0)
[2024-12-15] MEDS: FLUTICASONE/SALMETEROL 115-21 MCG INHALER 1 PUFF 2 PUFF INHALATION ×2 (08:00→21:03)
[2024-12-15] MEDS: SPIRONOLACTONE 25 MG TABLET PO (09:14)
[2024-12-15] MEDS: guaiFENesin 12 HR 600 MG TABCR PO ×2 (09:14→21:18)
[2024-12-15] MEDS: FUROSEMIDE 40 MG TABLET PO (09:15)
[2024-12-15] MEDS: CYANOCOBALAMIN 1,000 MCG TABLET 1000 MCG PO (09:15)
[2024-12-15] MEDS: ASCORBIC ACID 500 MG TABLET PO ×2 (09:15→17:28)
[2024-12-15] MEDS: LORATADINE 10 MG TABLET PO (09:15)
[2024-12-15] MEDS: FOLIC ACID 1 MG TABLET PO (09:15)
[2024-12-15] MEDS: OSELTAMIVIR PHOSPHATE 30 MG CAPSULE PO ×2 (09:15→21:18)
[2024-12-15] MEDS: POTASSIUM CHLORIDE 10 MEQ ER TABLET PO (09:15)
[2024-12-15] MEDS: FINASTERIDE 5 MG TABLET PO (09:15)
[2024-12-15] MEDS: PANTOPRAZOLE 40 MG TABLET PO (09:16)
[2024-12-15] MEDS: DULoxetine HCL 60 MG CAPSULE.DR PO (09:16)
[2024-12-15] MEDS: amLODIPine BESYLATE 2.5 MG TABLET PO (09:16)
[2024-12-15] MEDS: GABAPENTIN 300 MG CAPSULE PO ×2 (09:16→17:27)
[2024-12-15] MEDS: FERROUS SULFATE 325 MG TABLET DR PO ×2 (09:16→17:28)
[2024-12-15] MEDS: allopurinoL 100 MG TABLET PO (09:16)
[2024-12-15] MEDS: LACTULOSE 20 GM/30 ML UDC 30 GM PO (09:17)
[2024-12-15] MEDS: TAMSULOSIN HCL 0.4 MG CAPSULE 0.8 MG PO (09:17)
[2024-12-15] MEDS: carvediloL 3.125 MG TABLET PO ×2 (09:17→17:28)
[2024-12-15] MEDS: CHOLECALCIFEROL 5,000 UNITS TABLET 5000 UNITS PO (09:17)
[2024-12-15] MEDS: polyethylene glycoL 3350 17 GM POWD.PACK PO (09:18)
[2024-12-15] MEDS: ALBUTEROL SULFATE NEB 2.5 MG/3 ML INH INHALATION ×3 (09:20→21:03)
[2024-12-15] MEDS: AMOXICILLIN/CLAVULANATE K 875-125 MG TAB 1 TABLET PO ×2 (14:46→21:17)
[2024-12-15] MEDS: DICLOFENAC SODIUM 1% 100 GM GEL (*BKC) 1 APPLIC TOPICAL (17:29)
[2024-12-15] MEDS: HYDROcodone/acetaminophen (*CRX) 5-325 MG TABLET 1 TAB PO (18:23)
[2024-12-15] MEDS: ATORVASTATIN 40 MG TABLET 80 MG PO (21:18)
[2024-12-15] MEDS: ACETAMINOPHEN 325 MG TABLET 650 MG PO (23:40)
[2024-12-16] VITALS (12 sets, daily range): BP systolic 109–122; BP diastolic 60–65; PULSE 54–76; RESP 18–20; TEMP 36.2–36.8; O2SAT 96–99
[2024-12-16] MEDS: DOXYCYCLINE HYCLATE 100 MG TABLET PO ×2 (06:06→21:02)
[2024-12-16] MEDS: LEVOTHYROXINE SODIUM 100 MCG TABLET PO (06:06)
[2024-12-16] MEDS: HYDROcodone/acetaminophen (*CRX) 5-325 MG TABLET 1 TAB PO (06:06)
[2024-12-16] MEDS: ONDANSETRON HCL ODT 4 MG TABLET 8 MG PO ×3 (06:06→21:01)
[2024-12-16] MEDS: CARBIDOPA/LEVODOPA 25/100 MG TABLET 3 TABLET PO ×3 (06:07→21:03)
--- NOTE | 2024-12-16 06:57 | P.PNIM_ITS ---
Progress Note: A&P Assessment and Plan (1) Bilateral pneumonia: Qualifiers: Lung location: lower lobe of lung Pneumonia type: due to unspecified organism Qualified Code(s): J18.9 - Pneumonia, unspecified organism Code(s): J18.9 - Pneumonia, unspecified organism Status: Acute Assessment and Plan: * chest x-ray and chest CT suggesting pneumonia * patient was on Unasyn and doxycycline, we will go ahead and change antibiotic to meropenem and doxycycline per Infectious Disease pharmacist recommendation to cover for ESBL * currently on room air * respiratory panel positive for influenza A * continue incentive spirometry pep therapy * continue Tamiflu * continue Mucinex * continue DuoNebs 12/15 * No change to current treatment plan 12/16 - Currently on augmentin and doxycycline to continue. (2) COPD (chronic obstructive pulmonary disease): Qualifiers: COPD type: unspecified COPD Qualified Code(s): J44.9 - Chronic obstructive pulmonary disease, unspecified Code(s): J44.9 - Chronic obstructive pulmonary disease, unspecified Status: Acute Assessment and Plan: see above plan of care * avoid steroids 12/15 * 13 12/16 - Stable on room air at this time, breathing easily. Cont. routine advair. PRN albuterol. (3) Influenza A: Code(s): J10.1 - Influenza due to other identified influenza virus with other respiratory manifestations Status: Acute Assessment and Plan: * continue Tamiflu * see above plan of care 12/15 * No change 12/16 - Tamiflu to continue. Renal function stable, will uptitrate to 75mg bid dosing today. (4) Chronic indwelling Strauss catheter: Code(s): Z97.8 - Presence of other specified devices Status: Acute Assessment and Plan: * UA showing cloudy urine appearance greater than 9.0 urine pH, 2+ urine protein, positive nitrate, 3+ leukocyte, 51-100 urine WBC, 4+ urine bacteria. * Blood and urine culture obtained and pending * Unasyn changed to meropenem for ESBL coverage per Infectious Disease pharmacist recommendation * Will change out Strauss catheter as this does not appear to be done while in ER 12/15 * Meropenem changed to Augmentin * Urine culture showing Proteus mirabilis on final read * Blood cultures still showing no growth to date on preliminary read 12/16 - Currently on Augmentin to continue. Blood cultures are negative. (5) Urinary tract infection: Code(s): N39.0 - Urinary tract infection, site not specified Status: Acute Assessment and Plan: * see above plan of care 12/16 - Currently on Augmentin to continue. Blood cultures are negative. (6) Chronic kidney disease, stage 3: Qualifiers: Chronic kidney disease stage 3 subtype: stage 3a (GFR 45-59) Qualified Code(s): N18.31 - Chronic kidney disease, stage 3a Code(s): N18.30 - Chronic kidney disease, stage 3 unspecified Status: Acute Assessment and Plan: * creatinine 0.98, EGFR greater than 60 * currently at baseline * continue to trend 12/15 * No change to current treatment plan 12/16 - CrCl >60 this morning. (7) Fecal impaction: Code(s): K56.41 - Fecal impaction Status: Acute Assessment and Plan: * patient was given fleets enema while in the ED with bowel movement in the ED * will start MiraLax * hold Senokot 12/15 * No change to current treatment plan 12/16 - No charted stool output since yesterday, patient with more distention and abd. discomfort. Obtain obstructive series, ensure no developing ileus/etc. enemas if no acute findings. (8) Hyponatremia: Code(s): E87.1 - Hypo-osmolality and hyponatremia Status: Acute Assessment and Plan: 12/16 - Had slightly improved but now downtrending. 1500ml free water restriction now in place, likely 2/2 to pulmonary issues ongoing with current infection. - Trend Na Plan Florencio Bird is an 84 year old male with history COPD presenting from nursing facility with complicated UTI in the setting of chronic indwelling strauss catheter and concurrent influenza A with fecal impaction on presentation. He had bowel movements on day of presentation, none charted in 24 hours with noted increasing abd. distention and discomfort. Further workup with obstructive series and free water restriction is in place. Time Spent With Patient Time with patient: 25 - 35 minutes Subjective Date/time seen: 12/16/24 06:57 Interval history: Florencio states he feels very poorly this am. He specifically complains of abdominal pain, diffusely. He feels more bloated. He is not vomiting. Review of Systems Review of Systems: All systems reviewed & are unremarkable except as noted in HPI and below Exam Narrative: GENERAL APPEARANCE: Appears to be in no acute distress. HEAD: normocephalic atraumatic EYES: PERRL, EOMI. Vision grossly intact. ENT: Hard of hearing. no nasal discharge NECK: Neck supple, trachea midline. CARDIAC: Normal S1/S2. Rhythm is regular. No murmurs, rubs, or gallops. No cyanosis or pallor. Extremities are warm and well perfused. LUNGS: Clear to auscultation without rales, rhonchi, wheezing. Bilateral bases with diminished breath sounds. Respirations even and unlabored. ABDOMEN: BS positive x 4 quadrants. Distended, mildly tender diffusely.. No guarding or rebound. MSK: No joint tenderness/swelling, fair strength in all extremities. PERIPHERAL VASCULAR: Peripheral pulses palpable. Normal perfusion, cap refill <2 seconds. Trace pedal edema. NEURO: Follows commands. No focal deficits. SKIN: [place] without lesions or eruptions. PSYCH: Stable, no paranoia or delusional thinking. Objective Data Vital Signs Vital Signs: Vital Signs - 24 hr 12/15/24 08:15 12/15/24 09:10 12/15/24 09:15 Temperature Pulse Rate 69 Respiratory Rate 20 Blood Pressure Pulse Oximetry 97 Oxygen Delivery Room Air Room Air 12/15/24 09:17 12/15/24 13:45 12/15/24 14:00 Temperature 97.1 F L Pulse Rate 68 68 68 Respiratory Rate 20 18 Blood Pressure 114/54 L Pulse Oximetry 100 Oxygen Delivery 12/15/24 14:04 12/15/24 17:28 12/15/24 20:00 Temperature Pulse Rate 70 70 Respiratory Rate 20 Blood Pressure Pulse Oximetry Oxygen Delivery Room Air 12/15/24 21:04 12/15/24 21:13 12/15/24 21:45 Temperature 97.3 F L Pulse Rate 69 70 65 Respiratory Rate 20 20 18 Blood Pressure 112/84 Pulse Oximetry 95 Oxygen Delivery 12/16/24 06:00 Temperature 97.5 F L Pulse Rate 60 Respiratory Rate 18 Blood Pressure 122/61 Pulse Oximetry 97 Oxygen Delivery Intake/Output Intake/Output: Intake & Output 12/13/24 12/14/24 12/15/24 12/16/24 23:59 23:59 23:59 23:59 Intake Total 2400 1940 920 250 Output Total 600 2600 1800 Balance 2400 1340 -1680 -1550 Meds/Results Medications: Active Medications Generic Name Dose Route Start Last Admin Trade Name Arturo PRN Reason Stop Dose Admin Acetaminophen 650 mg 12/14/24 08:59 12/15/24 23:40 Acetaminophen 325 Mg Tablet PO 650 mg Q4H PRN Administration fever or pain 1-3 Hydrocodone Bitart/Acetaminophen 1 tab 12/14/24 08:59 12/16/24 06:06 Hydrocodone/Acetaminophen (*Crx) 5-325 Mg Tablet PO 1 tab Q8H PRN Administration Pain (Scale Score 4-6) Albuterol 2.5 mg 12/14/24 02:00 12/15/24 21:03 Albuterol Sulfate Neb 2.5 Mg/3 Ml Inh INHALATION 2.5 mg Q6HRT TENISHA Administration Allopurinol 100 mg 12/14/24 09:00 12/15/24 09:16 Allopurinol 100 Mg Tablet PO 100 mg DAILY TENISHA Administration Amlodipine Besylate 2.5 mg 12/14/24 09:00 12/15/24 09:16 Amlodipine Besylate 2.5 Mg Tablet PO 2.5 mg QAM TENISHA Administration Amoxicillin/Clavulanate Potassium 1 tablet 12/15/24 14:30 12/15/24 21:17 Amoxicillin/Clavulanate K 875-125 Mg Tab PO 12/20/24 21:01 1 tablet Q12HR TENISHA Administration Artificial Tears 1 drop 12/14/24 08:59 12/14/24 10:46 Artificial Tears Ophth Soln 15 Ml Bottle EACH EYE 1 drop BID PRN Administration dry eye(s) Ascorbic Acid 500 mg 12/14/24 17:00 12/15/24 17:28 Ascorbic Acid 500 Mg Tablet PO 500 mg BID TENISHA Administration Atorvastatin Calcium 80 mg 12/14/24 21:00 12/15/24 21:18 Atorvastatin 40 Mg Tablet PO 80 mg HS TENISHA Administration Bisacodyl 10 mg 12/14/24 08:59 Bisacodyl 10 Mg Suppository RECTAL DAILY PRN Constipation Carbidopa/Levodopa 3 tablet 12/14/24 09:20 12/16/24 06:07 Carbidopa/Levodopa 25/100 Mg Tablet PO 3 tablet Q8HR TENISHA Administration Carvedilol 3.125 mg 12/14/24 09:00 12/15/24 17:28 Carvedilol 3.125 Mg Tablet PO 3.125 mg BID TENISHA Administration Cyanocobalamin 1,000 mcg 12/15/24 09:00 12/15/24 09:15 Cyanocobalamin 1,000 Mcg Tablet PO 1,000 mcg DAILY TENISHA Administration Diclofenac Sodium 1 applic 12/14/24 09:00 12/15/24 17:29 Diclofenac Sodium 1% 100 Gm Gel (*Bkc) TOPICAL 1 applic BID TENISHA Administration Doxycycline Hyclate 100 mg 12/14/24 19:00 12/16/24 06:06 Doxycycline Hyclate 100 Mg Tablet PO 12/18/24 19:01 100 mg Q12H TENISHA Administration Duloxetine HCl 60 mg 12/14/24 09:00 12/15/24 09:16 Duloxetine Hcl 60 Mg Capsule.Dr PO 60 mg DAILY TENISHA Administration Ferrous Sulfate 325 mg 12/14/24 09:00 12/15/24 17:28 Ferrous Sulfate [address] PO 325 mg TID TENISHA Administration Finasteride 5 mg 12/15/24 09:00 12/15/24 09:15 Finasteride 5 Mg Tablet PO 5 mg DAILY TENISHA Administration Folic Acid 1 mg 12/14/24 09:00 12/15/24 09:15 Folic Acid 1 Mg Tablet PO 1 mg DAILY TENISHA Administration Furosemide 40 mg 12/15/24 09:00 12/15/24 09:15 Furosemide 40 Mg Tablet PO 40 mg DAILY TENISHA Administration Gabapentin 300 mg 12/14/24 17:00 12/15/24 17:27 Gabapentin 300 Mg Capsule PO 300 mg BID TENISHA Administration Guaifenesin 600 mg 12/14/24 21:00 12/15/24 21:18 Guaifenesin 12 Hr 600 Mg Tabcr PO 600 mg Q12HR TENISHA Administration Guaifenesin/Dextromethorphan 10 ml 12/14/24 08:59 Guaifenesin/Dextromethorphan 10 Ml Udc PO Q6H PRN cough Hydromorphone HCl 0.5 mg 12/14/24 00:13 12/14/24 14:46 Hydromorphone Hcl Inj (*Crx) 1 Mg/Ml Syr IV PUSH 0.5 mg Q4H PRN Administration Pain Rated 7-10 Lactulose 30 gm 12/14/24 09:00 12/15/24 09:17 Lactulose 20 Gm/30 Ml Udc PO 01/13/25 08:59 30 gm DAILY TENISHA Administration Levothyroxine Sodium 100 mcg 12/15/24 06:30 12/16/24 06:06 Levothyroxine Sodium 100 Mcg Tablet PO 100 mcg DAILY@0630 TENISHA Administration Lidocaine 1 patch 12/14/24 09:00 12/15/24 09:13 Lidocaine 5% Patch TOPICAL Not Given DAILY TENISHA Loratadine 10 mg 12/14/24 09:00 12/15/24 09:15 Loratadine 10 Mg Tablet PO 10 mg DAILY TENISHA Administration Magnesium Citrate 296 ml 12/14/24 08:59 Magnesium Citrate 300 Ml Btl PO DAILY PRN constipation Ondansetron HCl 8 mg 12/14/24 09:00 12/16/24 06:06 Ondansetron Hcl Odt 4 Mg Tablet PO 8 mg Q8HR TENISHA Administration Oseltamivir Phosphate 30 mg 12/13/24 21:00 12/15/24 21:18 Oseltamivir Phosphate 30 Mg Capsule PO 12/18/24 20:59 30 mg Q12HR TENISHA Administration Pantoprazole Sodium 40 mg 12/14/24 09:15 12/15/24 09:16 Pantoprazole 40 Mg Tablet PO 01/13/25 09:14 40 mg DAILY TENISHA Administration Polyethylene Glycol 17 gm 12/14/24 17:10 12/15/24 09:18 Polyethylene Glycol 3350 17 Gm Powd.Pack PO 17 gm QAM TENISHA Administration Potassium Chloride 10 meq 12/14/24 09:00 12/15/24 09:15 Potassium Chloride 10 Meq Er Tablet PO 10 meq DAILY TENISHA Administration Fluticasone/Salmeterol 2 puff 12/14/24 08:00 12/15/24 21:03 Fluticasone/Salmeterol 115-21 Mcg Inhaler 1 Puff INHALATION 2 puff Q12HRT [facility] Administration Senna/Docusate Sodium 2 tab 12/14/24 09:00 12/14/24 17:43 Senna/Docusate Sodium Tablet PO Not Given BID TENISHA Spironolactone 25 mg 12/14/24 09:00 12/15/24 09:14 Spironolactone 25 Mg Tablet PO 25 mg DAILY TENISHA Administration Tamsulosin HCl 0.8 mg 12/14/24 09:00 02/19/25 09:17 Tamsulosin Hcl 0.4 Mg Capsule PO 0.8 mg DAILY TENISHA Administration Vitamin D 5,000 units 12/14/24 09:00 12/15/24 09:17 Cholecalciferol 5,000 Units Tablet PO 5,000 units DAILY TENISHA Administration Radiology Results: ITS Impressions Chest X-Ray 12/13/24 18:41 IMPRESSION: Subsegmental left medial basilar and right basilar atelectasis/consolidation. Chest/Abdomen/Pelvis CT 12/13/24 20:01 IMPRESSION: Likely bilateral lower lobe bronchopneumonia, possibly with a component of aspiration given the presence of airway debris. Recommend low-dose noncontrast CT of the chest after the resolution of acute symptoms to exclude persistent pulmonary nodules. Mediastinal lymphadenopathy. Hepatomegaly. Possible cystitis. Possible fecal impaction. Labs Labs: Laboratory Results - last 24 hr 12/15/24 06:32 Potassium 3.5 Quality VTE Prophylaxis VTE prophylaxis: mechanical ordered Hospitalist [facility] Advance Care Plan I have confirmed that the patient's Advanced Care Plan is present, code status is documented, or surrogate decision maker is listed in patient medical record.: Yes Medication Reconciliation I have utilized all available resources to obtain, update and review the patients current medications (includes all prescriptions, OTC, herbals, cannabis, and nutritional supplements).: Yes
[2024-12-16 08:18] LABS: Hematocrit 25.9 % (42.0-52.0); Hemoglobin 8.2 g/dL (14.0-18.0); Mean Corpuscular HGB Conc 31.7 g/dl (32-36); Mean Corpuscular Hemoglobin 28.1 pg (26-34); Mean Corpuscular Volume 88.7 fl (80-100); Mean Platelet Volume 10.7 fl (7.4-10.4); Platelet Count Result 171 k/mm3 (150-375); Red Blood Count 2.92 M/mm3 (4.6-6.20); Red Cell Distribution Width 18.2 % (11.5-14.5); White Blood Count 8.3 K/mm3 (4.5-10.0)
[2024-12-16] MEDS: FOLIC ACID 1 MG TABLET PO (08:27)
[2024-12-16] MEDS: allopurinoL 100 MG TABLET PO (08:27)
[2024-12-16] MEDS: GABAPENTIN 300 MG CAPSULE PO ×2 (08:27→17:25)
[2024-12-16] MEDS: ASCORBIC ACID 500 MG TABLET PO ×2 (08:27→17:26)
[2024-12-16] MEDS: FINASTERIDE 5 MG TABLET PO (08:27)
[2024-12-16] MEDS: TAMSULOSIN HCL 0.4 MG CAPSULE 0.8 MG PO (08:27)
[2024-12-16] MEDS: POTASSIUM CHLORIDE 10 MEQ ER TABLET PO (08:27)
[2024-12-16] MEDS: AMOXICILLIN/CLAVULANATE K 875-125 MG TAB 1 TABLET PO ×2 (08:27→21:01)
[2024-12-16] MEDS: CYANOCOBALAMIN 1,000 MCG TABLET 1000 MCG PO (08:27)
[2024-12-16] MEDS: SPIRONOLACTONE 25 MG TABLET PO (08:27)
[2024-12-16] MEDS: polyethylene glycoL 3350 17 GM POWD.PACK PO (08:28)
[2024-12-16] MEDS: OSELTAMIVIR PHOSPHATE 30 MG CAPSULE PO (08:28)
[2024-12-16] MEDS: FUROSEMIDE 40 MG TABLET PO (08:28)
[2024-12-16] MEDS: DULoxetine HCL 60 MG CAPSULE.DR PO (08:28)
[2024-12-16] MEDS: CHOLECALCIFEROL 5,000 UNITS TABLET 5000 UNITS PO (08:28)
[2024-12-16] MEDS: FERROUS SULFATE 325 MG TABLET DR PO ×3 (08:28→17:25)
[2024-12-16] MEDS: LORATADINE 10 MG TABLET PO (08:28)
[2024-12-16] MEDS: guaiFENesin 12 HR 600 MG TABCR PO ×2 (08:28→21:01)
[2024-12-16] MEDS: amLODIPine BESYLATE 2.5 MG TABLET PO (08:28)
[2024-12-16] MEDS: carvediloL 3.125 MG TABLET PO ×2 (08:28→17:25)
[2024-12-16] MEDS: PANTOPRAZOLE 40 MG TABLET PO (08:29)
[2024-12-16] MEDS: DICLOFENAC SODIUM 1% 100 GM GEL (*BKC) 1 APPLIC TOPICAL ×2 (08:30→17:26)
[2024-12-16] MEDS: LACTULOSE 20 GM/30 ML UDC 30 GM PO (08:33)
[2024-12-16 08:39] LABS: Albumin Level 2.7 g/dL (3.5-5.1); Alkaline Phosphatase 73 U/L (38-126); Anion Gap 7 mmol/L (4-12); Aspartate Amino Transferase 20 U/L (17-59); Bilirubin,Total 0.6 mg/dL (0.2-1.3); Blood Urea Nitrogen 13 mg/dL (9-20); Calcium 8.3 mg/dL (8.4-10.2); Carbon Dioxide 25 mmol/L (22-30); Chloride 98 mmol/L (98-107); Estimated CRCL calculation 60 ml/min; Estimated Glomerular Filt Rate > 60; Glucose 97 mg/dL (65-110); Potassium 3.9 mmol/L (3.4-5.0); Sodium 130 mmol/L (137-145)
[2024-12-16] MEDS: FLUTICASONE/SALMETEROL 115-21 MCG INHALER 1 PUFF 2 PUFF INHALATION ×2 (08:45→21:22)
[2024-12-16] MEDS: ALBUTEROL SULFATE NEB 2.5 MG/3 ML INH INHALATION ×3 (08:45→21:21)
[2024-12-16 09:39] LABS: Alanine Aminotransferase < 6 U/L (6-50)
[2024-12-16] MEDS: OSELTAMIVIR PHOSPHATE 75 MG CAPSULE PO (21:01)
[2024-12-16] MEDS: ATORVASTATIN 40 MG TABLET 80 MG PO (21:01)
[2024-12-17] VITALS (10 sets, daily range): BP systolic 120–124; BP diastolic 52–57; PULSE 54–69; RESP 16–24; TEMP 36.2–36.4; O2SAT 94–96
[2024-12-17] MEDS: ALBUTEROL SULFATE NEB 2.5 MG/3 ML INH INHALATION ×3 (02:07→20:00)
[2024-12-17] MEDS: CARBIDOPA/LEVODOPA 25/100 MG TABLET 3 TABLET PO ×3 (05:28→21:12)
[2024-12-17] MEDS: DOXYCYCLINE HYCLATE 100 MG TABLET PO ×2 (05:28→18:06)
[2024-12-17] MEDS: LEVOTHYROXINE SODIUM 100 MCG TABLET PO (05:28)
[2024-12-17] MEDS: ONDANSETRON HCL ODT 4 MG TABLET 8 MG PO ×3 (05:28→21:12)
[2024-12-17 07:43] LABS: Hematocrit 27.5 % (42.0-52.0); Hemoglobin 8.5 g/dL (14.0-18.0); Mean Corpuscular HGB Conc 30.9 g/dl (32-36); Mean Corpuscular Hemoglobin 27.5 pg (26-34); Platelet Count Result 200 k/mm3 (150-375); Red Blood Count 3.09 M/mm3 (4.6-6.20); Red Cell Distribution Width 18.2 % (11.5-14.5); White Blood Count 7.6 K/mm3 (4.5-10.0)
[2024-12-17 08:01] LABS: Anion Gap 6 mmol/L (4-12); Blood Urea Nitrogen 17 mg/dL (9-20); Calcium 8.5 mg/dL (8.4-10.2); Carbon Dioxide 28 mmol/L (22-30); Chloride 98 mmol/L (98-107); Estimated CRCL calculation 55 ml/min; Estimated Glomerular Filt Rate > 60; Glucose 89 mg/dL (65-110); Potassium 4.2 mmol/L (3.4-5.0); Sodium 132 mmol/L (137-145)
[2024-12-17] MEDS: CYANOCOBALAMIN 1,000 MCG TABLET 1000 MCG PO (08:11)
[2024-12-17] MEDS: PANTOPRAZOLE 40 MG TABLET PO (08:11)
[2024-12-17] MEDS: LORATADINE 10 MG TABLET PO (08:11)
[2024-12-17] MEDS: FINASTERIDE 5 MG TABLET PO (08:11)
[2024-12-17] MEDS: allopurinoL 100 MG TABLET PO (08:11)
[2024-12-17] MEDS: ASCORBIC ACID 500 MG TABLET PO ×2 (08:11→18:06)
[2024-12-17] MEDS: OSELTAMIVIR PHOSPHATE 75 MG CAPSULE PO ×2 (08:11→21:12)
[2024-12-17] MEDS: SPIRONOLACTONE 25 MG TABLET PO (08:11)
[2024-12-17] MEDS: FUROSEMIDE 40 MG TABLET PO (08:11)
[2024-12-17] MEDS: guaiFENesin 12 HR 600 MG TABCR PO ×2 (08:12→21:12)
[2024-12-17] MEDS: TAMSULOSIN HCL 0.4 MG CAPSULE 0.8 MG PO (08:12)
[2024-12-17] MEDS: DULoxetine HCL 60 MG CAPSULE.DR PO (08:12)
[2024-12-17] MEDS: carvediloL 3.125 MG TABLET PO ×2 (08:12→18:06)
[2024-12-17] MEDS: POTASSIUM CHLORIDE 10 MEQ ER TABLET PO (08:12)
[2024-12-17] MEDS: GABAPENTIN 300 MG CAPSULE PO ×2 (08:12→18:06)
[2024-12-17] MEDS: AMOXICILLIN/CLAVULANATE K 875-125 MG TAB 1 TABLET PO ×2 (08:12→21:12)
[2024-12-17] MEDS: amLODIPine BESYLATE 2.5 MG TABLET PO (08:12)
[2024-12-17] MEDS: FOLIC ACID 1 MG TABLET PO (08:12)
[2024-12-17] MEDS: CHOLECALCIFEROL 5,000 UNITS TABLET 5000 UNITS PO (08:12)
[2024-12-17] MEDS: FERROUS SULFATE 325 MG TABLET DR PO ×3 (08:12→18:06)
[2024-12-17] MEDS: LACTULOSE 20 GM/30 ML UDC 30 GM PO (08:13)
[2024-12-17] MEDS: polyethylene glycoL 3350 17 GM POWD.PACK PO (08:13)
[2024-12-17] MEDS: DICLOFENAC SODIUM 1% 100 GM GEL (*BKC) 1 APPLIC TOPICAL (08:13)
[2024-12-17] MEDS: HYDROcodone/acetaminophen (*CRX) 5-325 MG TABLET 1 TAB PO ×3 (08:26→23:45)
--- NOTE | 2024-12-17 09:17 | P.PNIM_ITS ---
Progress Note: A&P Assessment and Plan (1) Bilateral pneumonia: Qualifiers: Lung location: lower lobe of lung Pneumonia type: due to unspecified organism Qualified Code(s): J18.9 - Pneumonia, unspecified organism Code(s): J18.9 - Pneumonia, unspecified organism Status: Acute Assessment and Plan: * chest x-ray and chest CT suggesting pneumonia * patient was on Unasyn and doxycycline, we will go ahead and change antibiotic to meropenem and doxycycline per Infectious Disease pharmacist recommendation to cover for ESBL * Currently patient is on Amox/clav and doxy * currently on room air * respiratory panel positive for influenza A * continue incentive spirometry pep therapy * continue Tamiflu * continue Mucinex * continue DuoNebs 12/15 * No change to current treatment plan 12/16 - Currently on augmentin and doxycycline to continue. (2) COPD (chronic obstructive pulmonary disease): Qualifiers: COPD type: unspecified COPD Qualified Code(s): J44.9 - Chronic ob structive pulmonary disease, unspecified Code(s): J44.9 - Chronic obstructive pulmonary disease, unspecified Status: Acute Assessment and Plan: see above plan of care * avoid steroids 12/15 * 13 12/16 - Stable on room air at this time, breathing easily. Cont. routine advair. PRN albuterol. (3) Influenza A: Code(s): J10.1 - Influenza due to other identified influenza virus with other respiratory manifestations Status: Acute Assessment and Plan: * continue Tamiflu * see above plan of care 12/15 * No change 12/16 - Tamiflu to continue. Renal function stable, will uptitrate to 75mg bid dosing today. (4) Chronic indwelling Strauss catheter: Code(s): Z97.8 - Presence of other specified devices Status: Acute Assessment and Plan: * UA showing cloudy urine appearance greater than 9.0 urine pH, 2+ urine protein, positive nitrate, 3+ leukocyte, 51-100 urine WBC, 4+ urine bacteria. * Blood and urine culture obtained and pending * Unasyn changed to meropenem for ESBL coverage per Infectious Disease pharmacist recommendation * Will change out Strauss catheter as this does not appear to be done while in ER 12/15 * Meropenem changed to Augmentin * Urine culture showing Proteus mirabilis on final read * Blood cultures still showing no growth to date on preliminary read 12/16 - Currently on Augmentin to continue. Blood cultures are negative. (5) Urinary tract infection: Code(s): N39.0 - Urinary tract infection, site not specified Status: Acute Assessment and Plan: * see above plan of care 12/16 - Currently on Augmentin to continue. Blood cultures are negative. (6) Chronic kidney disease, stage 3: Qualifiers: Chronic kidney disease stage 3 subtype: stage 3a (GFR 45-59) Qualified Code(s): N18.31 - Chronic kidney disease, stage 3a Code(s): N18.30 - Chronic kidney disease, stage 3 unspecified Status: Acute Assessment and Plan: * creatinine 0.98, EGFR greater than 60 * currently at baseline * continue to trend 12/15 * No change to current treatment plan 12/16 - CrCl >60 this morning. (7) Fecal impaction: Code(s): K56.41 - Fecal impaction Status: Acute Assessment and Plan: * patient was given fleets enema while in the ED with bowel movement in the ED * will start MiraLax * hold Senokot 12/15 * No change to current treatment plan 12/16 - No charted stool output since yesterday, patient with more distention and abd. discomfort. Obtain obstructive series, ensure no developing ileus/etc. enemas if no acute findings. (8) Hyponatremia: Code(s): E87.1 - Hypo-osmolality and hyponatremia Status: Acute Assessment and Plan: 12/16 - Had slightly improved but now downtrending. 1500ml free water restriction now in place, likely 2/2 to pulmonary issues ongoing with current infection. - Trend Na Plan Florencio Bird is an 84 year old male with history COPD presenting from nursing facility with complicated UTI in the setting of chronic indwelling strauss catheter and concurrent influenza A with fecal impaction on presentation. He had bowel movements on day of presentation, none charted in 24 hours with noted increasing abd. distention and discomfort. Further workup with obstructive series and free water restriction is in place. Subjective Date/time seen: 12/17/24 09:17 Interval history: Patient has been currently treated for UTI. Patient is also positive for influenza A. Review of Systems Review of Systems: All systems reviewed & are unremarkable except as noted in HPI and below ROS unobtainable: Yes unobtainable due to medical condition (Cognitive impairment) Exam Narrative: GENERAL APPEARANCE: Appears to be in no acute distress. HEAD: normocephalic atraumatic EYES: PERRL, EOMI. Vision grossly intact. ENT: Hard of hearing. no nasal discharge NECK: Neck supple, trachea midline. CARDIAC: Normal S1/S2. Rhythm is regular. No murmurs, rubs, or gallops. No cyanosis or pallor. Extremities are warm and well perfused. LUNGS: Clear to auscultation without rales, rhonchi, wheezing. Bilateral bases with diminished breath sounds. Respirations even and unlabored. ABDOMEN: BS positive x 4 quadrants. Distended, mildly tender diffusely.. No guarding or rebound. MSK: No joint tenderness/swelling, fair strength in all extremities. PERIPHERAL VASCULAR: Peripheral pulses palpable. Normal perfusion, cap refill <2 seconds. Trace pedal edema. NEURO: Follows commands. No focal deficits. SKIN: [place] without lesions or eruptions. PSYCH: Stable, no paranoia or delusional thinking. Objective Data Vital Signs Vital Signs: Vital Signs - 24 hr 12/16/24 10:05 12/16/24 14:00 12/16/24 14:20 Temperature 98.3 F Pulse Rate 54 L 70 Respiratory Rate 18 20 Blood Pressure 109/65 Pulse Oximetry 96 99 Oxygen Delivery Room Air 12/16/24 17:25 12/16/24 20:00 12/16/24 21:22 Temperature Pulse Rate 72 72 Respiratory Rate 20 Blood Pressure Pulse Oximetry 99 97 Oxygen Delivery Room Air Room Air 12/16/24 21:22 12/16/24 21:35 12/16/24 22:00 Temperature 97.1 F L Pulse Rate 70 74 57 L Respiratory Rate 18 18 18 Blood Pressure 119/60 Pulse Oximetry 99 Oxygen Delivery 12/17/24 02:08 12/17/24 02:18 12/17/24 06:00 Temperature 97.1 F L Pulse Rate 58 L 60 62 Respiratory Rate 16 16 18 Blood Pressure 120/54 L Pulse Oximetry 96 Oxygen Delivery 12/17/24 08:12 Temperature Pulse Rate 68 Respiratory Rate Blood Pressure Pulse Oximetry Oxygen Delivery Intake/Output Intake/Output: Intake & Output 12/14/24 12/15/24 12/16/24 12/17/24 23:59 23:59 23:59 23:59 Intake Total 4101 134 2458 Output Total 600 8521 4290 8547 Balance 0385 -6462 -2012 -1762 Meds/Results Medications: Active Medications Generic Name Dose Route Start Last Admin Trade Name Freq PRN Reason Stop Dose Admin Acetaminophen 650 mg 12/14/24 08:59 12/15/24 23:40 Acetaminophen 325 Mg Tablet PO 650 mg Q4H PRN Administration fever or pain 1-3 Hydrocodone Bitart/Acetaminophen 1 tab 12/14/24 08:59 12/17/24 08:26 Hydrocodone/Acetaminophen (*Crx) 5-325 Mg Tablet PO 1 tab Q8H PRN Administration Pain (Scale Score 4-6) Albuterol 2.5 mg 12/14/24 02:00 12/17/24 02:07 Albuterol Sulfate Neb 2.5 Mg/3 Ml Inh INHALATION 2.5 mg Q6HRT TENISHA Administration Albuterol 2.5 mg 12/16/24 09:54 Albuterol Sulfate Neb 2.5 Mg/3 Ml Inh INHALATION Q4HRT PRN Shortness Of Breath Allopurinol 100 mg 12/14/24 09:00 12/17/24 08:11 Allopurinol 100 Mg Tablet PO 100 mg DAILY TENISHA Administration Amlodipine Besylate 2.5 mg 12/14/24 09:00 12/17/24 08:12 Amlodipine Besylate 2.5 Mg Tablet PO 2.5 mg QAM TENISHA Administration Amoxicillin/Clavulanate Potassium 1 tablet 12/15/24 14:30 12/17/24 08:12 Amoxicillin/Clavulanate K 875-125 Mg Tab PO 12/20/24 21:01 1 tablet Q12HR TENISHA Administration Artificial Tears 1 drop 12/14/24 08:59 12/14/24 10:46 Artificial Tears Ophth Soln 15 Ml Bottle EACH EYE 1 drop BID PRN Administration dry eye(s) Ascorbic Acid 500 mg 12/14/24 17:00 12/17/24 08:11 Ascorbic Acid 500 Mg Tablet PO 500 mg BID TENISHA Administration Atorvastatin Calcium 80 mg 12/14/24 21:00 12/16/24 21:01 Atorvastatin 40 Mg Tablet PO 80 mg HS TENISHA Administration Bisacodyl 10 mg 12/14/24 08:59 Bisacodyl 10 Mg Suppository RECTAL DAILY PRN Constipation Carbidopa/Levodopa 3 tablet 12/14/24 09:20 12/17/24 05:28 Carbidopa/Levodopa 25/100 Mg Tablet PO 3 tablet Q8HR TENISHA Administration Carvedilol 3.125 mg 12/14/24 09:00 12/17/24 08:12 Carvedilol 3.125 Mg Tablet PO 3.125 mg BID TENISHA Administration Cyanocobalamin 1,000 mcg 12/15/24 09:00 12/17/24 08:11 Cyanocobalamin 1,000 Mcg Tablet PO 1,000 mcg DAILY TENISHA Administration Diclofenac Sodium 1 applic 12/14/24 09:00 12/17/24 08:13 Diclofenac Sodium 1% 100 Gm Gel (*Bkc) TOPICAL 1 applic BID TENISHA Administration Doxycycline Hyclate 100 mg 12/14/24 19:00 12/17/24 05:28 Doxycycline Hyclate 100 Mg Tablet PO 12/18/24 19:01 100 mg Q12H TENISHA Administration Duloxetine HCl 60 mg 12/14/24 09:00 12/17/24 08:12 Duloxetine Hcl 60 Mg Capsule.Dr PO 60 mg DAILY TENISHA Administration Ferrous Sulfate 325 mg 12/14/24 09:00 12/17/24 08:12 Ferrous Sulfate [address] PO 325 mg TID TENISHA Administration Finasteride 5 mg 12/15/24 09:00 12/17/24 08:11 Finasteride 5 Mg Tablet PO 5 mg DAILY TENISHA Administration Folic Acid 1 mg 12/14/24 09:00 12/17/24 08:12 Folic Acid 1 Mg Tablet PO 1 mg DAILY TENISHA Administration Furosemide 40 mg 12/15/24 09:00 12/17/24 08:11 Furosemide 40 Mg Tablet PO 40 mg DAILY TENISHA Administration Gabapentin 300 mg 12/14/24 17:00 12/17/24 08:12 Gabapentin 300 Mg Capsule PO 300 mg BID TENISHA Administration Guaifenesin 600 mg 12/14/24 21:00 12/17/24 08:12 Guaifenesin 12 Hr 600 Mg Tabcr PO 600 mg Q12HR TENISHA Administration Guaifenesin/Dextromethorphan 10 ml 12/14/24 08:59 Guaifenesin/Dextromethorphan 10 Ml Udc PO Q6H PRN cough Hydromorphone HCl 0.5 mg 12/14/24 00:13 12/14/24 14:46 Hydromorphone Hcl Inj (*Crx) 1 Mg/Ml Syr IV PUSH 0.5 mg Q4H PRN Administration Pain Rated 7-10 Lactulose 30 gm 12/14/24 09:00 12/17/24 08:13 Lactulose 20 Gm/30 Ml Udc PO 01/13/25 08:59 30 gm DAILY TENISHA Administration Levothyroxine Sodium 100 mcg 12/15/24 06:30 12/17/24 05:28 Levothyroxine Sodium 100 Mcg Tablet PO 100 mcg DAILY@0630 TENISHA Administration Lidocaine 1 patch 12/14/24 09:00 12/17/24 08:13 Lidocaine 5% Patch TOPICAL 1 patch DAILY TENISHA Administration Loratadine 10 mg 12/14/24 09:00 12/17/24 08:11 Loratadine 10 Mg Tablet PO 10 mg DAILY TENISHA Administration Magnesium Citrate 296 ml 12/14/24 08:59 Magnesium Citrate 300 Ml Btl PO DAILY PRN constipation Ondansetron HCl 8 mg 12/14/24 09:00 12/17/24 05:28 Ondansetron Hcl Odt 4 Mg Tablet PO 8 mg Q8HR TENISHA Administration Oseltamivir Phosphate 75 mg 12/16/24 21:00 12/17/24 08:11 Oseltamivir Phosphate 75 Mg Capsule PO 12/21/24 20:59 75 mg Q12HR TENISHA Administration Pantoprazole Sodium 40 mg 12/14/24 09:15 12/17/24 08:11 Pantoprazole 40 Mg Tablet PO 01/13/25 09:14 40 mg DAILY TENISHA Administration Polyethylene Glycol 17 gm 12/14/24 17:10 12/17/24 08:13 Polyethylene Glycol 3350 17 Gm Powd.Pack PO 17 gm QAM TENISHA Administration Potassium Chloride 10 meq 12/14/24 09:00 12/17/24 08:12 Potassium Chloride 10 Meq Er Tablet PO 10 meq DAILY TENISHA Administration Fluticasone/Salmeterol 2 puff 12/14/24 08:00 12/16/24 21:22 Fluticasone/Salmeterol 115-21 Mcg Inhaler 1 Puff INHALATION 2 puff Q12HRT TENISHA Administration Senna/Docusate Sodium 2 tab 12/14/24 09:00 12/14/24 17:43 Senna/Docusate Sodium Tablet PO Not Given BID TENISHA Spironolactone 25 mg 12/14/24 09:00 12/17/24 08:11 Spironolactone 25 Mg Tablet PO 25 mg DAILY TENISHA Administration Tamsulosin HCl 0.8 mg 12/14/24 09:00 12/17/24 08:12 Tamsulosin Hcl 0.4 Mg Capsule PO 0.8 mg DAILY TENISHA Administration Vitamin D 5,000 units 12/14/24 09:00 12/17/24 08:12 Cholecalciferol 5,000 Units Tablet PO 5,000 units DAILY TENISHA Administration Radiology Results: ITS Impressions Chest X-Ray 12/13/24 18:41 IMPRESSION: Subsegmental left medial basilar and right basilar atelectasis/consolidation. Chest/Abdomen/Pelvis CT 12/13/24 20:01 IMPRESSION: Likely bilateral lower lobe bronchopneumonia, possibly with a component of aspiration given the presence of airway debris. Recommend low-dose noncontrast CT of the chest after the resolution of acute symptoms to exclude persistent pulmonary nodules. Mediastinal lymphadenopathy. Hepatomegaly. Possible cystitis. Possible fecal impaction. Abdomen X-Ray 12/16/24 13:49 IMPRESSION: 1. Normal bowel gas pattern. Labs Labs: Laboratory Results - last 24 hr 12/16/24 12/17/24 12/17/24 07:22 06:59 06:59 WBC 7.6 RBC 3.09 L Hgb 8.5 L Hct 27.5 L MCV 89.0 MCH 27.5 MCHC 30.9 L RDW 18.2 H Plt Count 200 MPV 10.0 Sodium 132 L Potassium 4.2 4.2 Chloride 98 Carbon Dioxide 28 Anion Gap 6 BUN 17 Creatinine 0.91 Estim Creat Clear Calc 55 Estimated GFR > 60 Glucose 89 Calcium 8.5 ALT < 6 L Hospitalist MIPS Advance Care Plan I have confirmed that the patient's Advanced Care Plan is present, code status is documented, or surrogate decision maker is listed in patient medical record.: Yes Medication Reconciliation I have utilized all available resources to obtain, update and review the patients current medications (includes all prescriptions, OTC, herbals, cannabis, and nutritional supplements).: Yes
--- NOTE | 2024-12-17 12:10 | PCNFU ---
Nutrition Follow-Up Complete: Severe protein calorie malnutrition related to chronic loss of appetite, covid as evidenced by weight loss 13%/1 month; intakes <75% needs> 1 month; severe fat loss and moderate muscle wasting Goal:Improve PO intake to at least 50% meals and supplements pt progressing towards goal, continue with same goal Pt current nutrition is Regular, Ensure Enlive TID. Nutrition recommendation: continue with current plan of care Last recorded weight is 77.9 kg. Bowel Motility: +BM 12/16 Labs Reviewed: Hgb:8.2, HCT:25.9, NA:132 Meds Noted: lactulose, lasix, protonix, KCL, Vit C, Vit B12 Skin: WNL Additional Notes: Pt continues on a regular diet, intake improved to 50-100% most meals, Ensure Enlive in place for supplements. Encourage po intake. Monitoring intakes, weights, labs, supplement tolerance, plan of care Follow up in 7 days
[2024-12-17] MEDS: guaiFENesin/DEXTROMETHORPHAN 10 ML UDC PO (16:00)
[2024-12-17] MEDS: FLUTICASONE/SALMETEROL 115-21 MCG INHALER 1 PUFF 2 PUFF INHALATION (20:00)
[2024-12-17] MEDS: ATORVASTATIN 40 MG TABLET 80 MG PO (21:12)
[2024-12-18] VITALS (9 sets, daily range): BP systolic 114–120; BP diastolic 65–83; PULSE 60–98; RESP 18–20; TEMP 36.3–36.4; O2SAT 94–98
[2024-12-18] MEDS: ALBUTEROL SULFATE NEB 2.5 MG/3 ML INH INHALATION ×3 (02:15→14:43)
[2024-12-18] MEDS: LEVOTHYROXINE SODIUM 100 MCG TABLET PO (06:05)
[2024-12-18] MEDS: ONDANSETRON HCL ODT 4 MG TABLET 8 MG PO ×2 (06:05→13:39)
[2024-12-18] MEDS: CARBIDOPA/LEVODOPA 25/100 MG TABLET 3 TABLET PO ×2 (06:05→13:39)
[2024-12-18] MEDS: DOXYCYCLINE HYCLATE 100 MG TABLET PO (06:05)
[2024-12-18] MEDS: FINASTERIDE 5 MG TABLET PO (08:21)
[2024-12-18] MEDS: FOLIC ACID 1 MG TABLET PO (08:21)
[2024-12-18] MEDS: CYANOCOBALAMIN 1,000 MCG TABLET 1000 MCG PO (08:21)
[2024-12-18] MEDS: PANTOPRAZOLE 40 MG TABLET PO (08:21)
[2024-12-18] MEDS: OSELTAMIVIR PHOSPHATE 75 MG CAPSULE PO (08:21)
[2024-12-18] MEDS: DULoxetine HCL 60 MG CAPSULE.DR PO (08:21)
[2024-12-18] MEDS: POTASSIUM CHLORIDE 10 MEQ ER TABLET PO (08:21)
[2024-12-18] MEDS: FERROUS SULFATE 325 MG TABLET DR PO ×3 (08:21→17:52)
[2024-12-18] MEDS: guaiFENesin 12 HR 600 MG TABCR PO (08:22)
[2024-12-18] MEDS: amLODIPine BESYLATE 2.5 MG TABLET PO (08:22)
[2024-12-18] MEDS: LORATADINE 10 MG TABLET PO (08:22)
[2024-12-18] MEDS: GABAPENTIN 300 MG CAPSULE PO ×2 (08:22→17:52)
[2024-12-18] MEDS: SPIRONOLACTONE 25 MG TABLET PO (08:22)
[2024-12-18] MEDS: carvediloL 3.125 MG TABLET PO ×2 (08:22→17:53)
[2024-12-18] MEDS: LACTULOSE 20 GM/30 ML UDC 30 GM PO (08:23)
[2024-12-18] MEDS: allopurinoL 100 MG TABLET PO (08:23)
[2024-12-18] MEDS: ASCORBIC ACID 500 MG TABLET PO ×2 (08:23→17:52)
[2024-12-18] MEDS: FUROSEMIDE 40 MG TABLET PO (08:23)
[2024-12-18] MEDS: TAMSULOSIN HCL 0.4 MG CAPSULE 0.8 MG PO (08:23)
[2024-12-18] MEDS: HYDROcodone/acetaminophen (*CRX) 5-325 MG TABLET 1 TAB PO ×2 (08:23→15:54)
[2024-12-18] MEDS: AMOXICILLIN/CLAVULANATE K 875-125 MG TAB 1 TABLET PO (08:23)
[2024-12-18] MEDS: DICLOFENAC SODIUM 1% 100 GM GEL (*BKC) 1 APPLIC TOPICAL (08:24)
[2024-12-18] MEDS: CHOLECALCIFEROL 5,000 UNITS TABLET 5000 UNITS PO (08:25)
[2024-12-18] MEDS: polyethylene glycoL 3350 17 GM POWD.PACK PO (08:25)
[2024-12-18] MEDS: FLUTICASONE/SALMETEROL 115-21 MCG INHALER 1 PUFF 2 PUFF INHALATION (08:30)
[2024-12-18 08:46] LABS: Hematocrit 28.7 % (42.0-52.0); Mean Corpuscular HGB Conc 31.4 g/dl (32-36); Mean Corpuscular Hemoglobin 27.5 pg (26-34); Mean Corpuscular Volume 87.8 fl (80-100); Mean Platelet Volume 9.6 fl (7.4-10.4); Platelet Count Result 210 k/mm3 (150-375); Red Blood Count 3.27 M/mm3 (4.6-6.20); Red Cell Distribution Width 18.4 % (11.5-14.5); White Blood Count 9.1 K/mm3 (4.5-10.0)
[2024-12-18 09:02] LABS: Alanine Aminotransferase 7 U/L (6-50); Albumin Level 2.9 g/dL (3.5-5.1); Alkaline Phosphatase 78 U/L (38-126); Anion Gap 9 mmol/L (4-12); Aspartate Amino Transferase 19 U/L (17-59); Bilirubin,Total 0.7 mg/dL (0.2-1.3); Blood Urea Nitrogen 26 mg/dL (9-20); Calcium 8.6 mg/dL (8.4-10.2); Carbon Dioxide 27 mmol/L (22-30); Chloride 97 mmol/L (98-107); Estimated CRCL calculation 54 ml/min; Estimated Glomerular Filt Rate > 60; Glucose 97 mg/dL (65-110); Potassium 4.7 mmol/L (3.4-5.0); Sodium 133 mmol/L (137-145)
--- NOTE | 2024-12-18 14:39 | P.DS_ITS ---
DS: Admitting Diagnosis Discharge Date 12/18/2024 Admitting Diagnosis Respiratory symptoms and weakness DS: Discharge Diagnosis Discharge Diagnosis (1) Bilateral pneumonia: Qualifiers: Lung location: lower lobe of lung Pneumonia type: due to unspecified organism Qualified Code(s): J18.9 - Pneumonia, unspecified organism Code(s): J18.9 - Pneumonia, unspecified organism Status: Acute Assessment and Plan: - Currently on augmentin and doxycycline to continue. (2) COPD (chronic obstructive pulmonary disease): Qualifiers: COPD type: unspecified COPD Qualified Code(s): J44.9 - Chronic obstructive pulmonary disease, unspecified Code(s): J44.9 - Chronic obstructive pulmonary disease, unspecified Status: Acute Assessment and Plan: see above plan of care (3) Influenza A: Code(s): J10.1 - Influenza due to other identified influenza virus with other respiratory manifestations Status: Acute Assessment and Plan: * continue Tamiflu (4) Chronic indwelling Duron catheter: Code(s): Z97.8 - Presence of other specified devices Status: Acute Assessment and Plan: * UA showing cloudy urine appearance greater than 9.0 urine pH, 2+ urine protein, positive nitrate, 3+ leukocyte, 51-100 urine WBC, 4+ urine bacteria. * Blood and urine culture obtained and pending * Unasyn changed to meropenem for ESBL coverage per Infectious Disease pharmacist recommendation * Will change out Duron catheter as this does not appear to be done while in ER 12/15 * Meropenem changed to Augmentin * Urine culture showing Proteus mirabilis on final read * Blood cultures still showing no growth to date on preliminary read 12/16 - Currently on Augmentin to continue. Blood cultures are negative. (5) Urinary tract infection: Code(s): N39.0 - Urinary tract infection, site not specified Status: Acute Assessment and Plan: * see above plan of care 12/16 - Currently on Augmentin to continue. Blood cultures are negative. (6) Chronic kidney disease, stage 3: Qualifiers: Chronic kidney disease stage 3 subtype: stage 3a (GFR 45-59) Qualified Code(s): N18.31 - Chronic kidney disease, stage 3a Code(s): N18.30 - Chronic kidney disease, stage 3 unspecified Status: Acute Assessment and Plan: * creatinine 0.98, EGFR greater than 60 * currently at baseline (7) Fecal impaction: Code(s): K56.41 - Fecal impaction Status: Acute Assessment and Plan: * patient was given fleets enema while in the ED with bowel movement in the ED * Had bowel movement on 12/16 (8) Hyponatremia: Code(s): E87.1 - Hypo-osmolality and hyponatremia Status: Acute Assessment and Plan: 12/16 - Had slightly improved but now downtrending. 1500ml free water restriction now in place, likely 2/2 to pulmonary issues ongoing with current infection. - Trend Na 12/18: Chronic,no sx DS: Summary Hospital Course Hospital Course: 84-year-old male with a past medical history cognitive impairment, Parkinson's disease, mild pulmonary hypertension, diastolic dysfunction, COPD, obstructive sleep apnea, renal cell carcinoma status post nephrectomy, BPH with chronic urinary retention and chronic indwelling Duron who presented to the ER from [facility] due to respiratory symptoms and weakness. At the time of my evaluation the patient is only alert oriented to self. He thought he was at acute rehab facility. He denies any shortness of breath despite having significant tachypnea. ABG demonstrates respiratory alkalosis in the patient appears quite anxious. He is fixated on the fact that he feels like he needs to have a bowel movement. The patient's respiratory rate was 30-35 but when he was distracted is respiratory rate would come down to 20-25. He is hyperventilating due to anxiety. He was given a small dose of Ativan after my evaluation and his respiratory rate improved significantly. Imaging performed in the ER did demonstrate likely bilateral pneumonia. Patient was influenza A positive. He was admitted for treatment of pneumonia and flu. The patient was on room air an d not requiring oxygen. He was afebrile. The patient said multiple times that he had COVID. However we did not receive the report from the [facility] that stated the patient had any known respiratory viruses. As per : Patient had advanced directives on his chart from the [facility] indicating he would want to be DNR/DNI. The patient had also verbalizes intent to me during prior admissions. However given the patient's respiratory status when he was in the ER the ER provider contacted the patient's family. They revoked to the patient's DNR status until they could come see the patient. At the time that I had left the ER the patient's family had not arrived to discuss code status or the patient's condition. I assumed care on 12/17-12/18: The patient is treated for PNA and COPD exacerbation initially treated with Unasyn and Doxy and later with Amox/Clav and Doxycycline.Treated Influenza A with Tamiflu and UTI with Amox/Clav.Patient had a bowel movement day before yesterday. Currently doing well and discharged with following instructions: Please complete Augmentin and Tamiflu as instructed. Check blood pressure 1 to 2 times a day. Record and bring into your doctor for review. Call your doctor if your blood pressure is greater than 180/110 or less than 90/45. Walk with cane or other assist device. Take precautions to avoid falls. Rise slowly from a lying or sitting position. Pause before standing or walking. Contact your doctor or call 911 and come to the Emergency Room if you have any type of trauma, lightheadedness with standing or other worrisome symptoms. Avoid NSAIDs (ibuprofen, naproxen, Aleve). Tylenol is safe to take. Follow-up with your primary care provider in 1-2 weeks. Please call for appointment. Follow-up with Cardiology in 2-4 weeks. Please call for an appointment. Thank you for using [facility] for your health care needs. Status at Discharge Cognitive/behavioral status at discharge: Stable Time Spent with Patient Time attestation: Total time spent providing and/or coordinating discharge services:45 minutes Exam Narrative: GENERAL APPEARANCE: Appears to be in no acute distress. HEAD: normocephalic atraumatic EYES: PERRL, EOMI. Vision grossly intact. ENT: Hard of hearing. no nasal discharge NECK: Neck supple, trachea midline. CARDIAC: Normal S1/S2. Rhythm is regular. No murmurs, rubs, or gallops. No cyanosis or pallor. Extremities are warm and well perfused. LUNGS: Clear to auscultation without rales, rhonchi, wheezing. Bilateral bases with diminished breath sounds. Respirations even and unlabored. ABDOMEN: BS positive x 4 quadrants. Distended, mildly tender diffusely.. No guarding or rebound. MSK: No joint tenderness/swelling, fair strength in all extremities. PERIPHERAL VASCULAR: Peripheral pulses palpable. Normal perfusion, cap refill <2 seconds. Trace pedal edema. NEURO: Follows commands. No focal deficits. SKIN: [place] without lesions or eruptions. PSYCH: Stable, no paranoia or delusional thinking. DS: Data Data Completed and Pending Labs on day of discharge: Labs from last 24 hours 12/18/24 08:40 WBC 9.1 RBC 3.27 L Hgb 9.0 L Hct 28.7 L MCV 87.8 MCH 27.5 MCHC 31.4 L RDW 18.4 H Plt Count 210 MPV 9.6 Sodium 133 L Potassium 4.7 Chloride 97 L Carbon Dioxide 27 Anion Gap 9 BUN 26 H Creatinine 0.92 Estim Creat Clear Calc 54 Estimated GFR > 60 Glucose 97 Calcium 8.6 Total Bilirubin 0.7 AST 19 ALT 7 Alkaline Phosphatase 78 Total Protein 6.0 L Albumin 2.9 L Preliminary micro results at discharge 12/13/24 22:16 Blood Culture - Preliminary Blood 12/13/24 20:47 Blood Culture - Preliminary Blood Imaging Radiologist's impression: ITS Impressions Chest X-Ray 12/13/24 18:41 IMPRESSION: Subsegmental left medial basilar and right basilar atelectasis/consolidation. Chest/Abdomen/Pelvis CT 12/13/24 20:01 IMPRESSION: Likely bilateral lower lobe bronchopneumonia, possibly with a component of aspiration given the presence of airway debris. Recommend low-dose noncontrast CT of the chest after the resolution of acute symptoms to exclude persistent pulmonary nodules. Mediastinal lymphadenopathy. Hepatomegaly. Possible cystitis. Possible fecal impaction. Abdomen X-Ray 12/16/24 13:49 IMPRESSION: 1. Normal bowel gas pattern. Discharge Plan Discharge Attending physician on discharge: Berry Kemp Discharging Clinician: Berry Kemp Patient Disposition: [place] Shelter/Asst Living Activity: as tolerated Diet: regular Discharge Instructions: Please complete Augmentin and Tamiflu as instructed. Check blood pressure 1 to 2 times a day. Record and bring into your doctor for review. Call your doctor if your blood pressure is greater than 180/110 or less than 90/45. Walk with cane or other assist device. Take precautions to avoid falls. Rise slowly from a lying or sitting position. Pause before standing or walking. Contact your doctor or call 911 and come to the Emergency Room if you have any type of trauma, lightheadedness with standing or other worrisome symptoms. Avoid NSAIDs (ibuprofen, naproxen, Aleve). Tylenol is safe to take. Follow-up with your primary care provider in 1-2 weeks. Please call for appoi ntment. Follow-up with Cardiology in 2-4 weeks. Please call for an appointment. Thank you for using [facility] for your health care needs. Patient Instructions: Antibiotic Form Patient Language: [place] Stand Alone Forms: General Discharge Information Follow-up/Referrals: Raoul Forbes MD [Primary Care Provider] - Discharge Medications: New oseltamivir [Tamiflu] 75 mg Capsule 75 mg PO Q12HR Qty: 10 0RF Rx Instructions: Please complete Osteltamivir 75 mg PO BID until 12/21/2024 guaifenesin [Mucus Relief ER] 600 mg Tablet Extended Release 12hr 600 mg PO Q12HR Qty: 30 0RF amoxicillin-pot clavulanate 875-125 mg tablet 1 tablet PO Q12H Qty: 10 0RF Rx Instructions: Please take one tab two times a day until 12/20/2024 Continued alendronate 70 mg tablet 70 mg PO WEEKLY Rx Instructions: every friday bisacodyl [Dulcolax (bisacodyl)] 10 mg suppository 10 mg RECTAL DAILY PRN (Reason: Constipation) ondansetron 8 mg tablet,disintegrating 8 mg PO Q8H carbidopa-levodopa [Sinemet] 25-100 mg tablet 3 tablet PO TID Qty: 240 6RF Rx Instructions: May increase to 3 tablets 4 times a day as necessary atorvastatin 80 mg tablet 80 mg PO HS acetaminophen 325 mg tablet 650 mg PO Q4H PRN (Reason: fever or pain) fluticasone propion-salmeterol [Advair Diskus] 250-50 mcg/dose blister with device 1 inh inhalation Q12H Artificial Tears([id number]) 0.1-0.3 % drops 1 drp EACH EYE BID PRN (Reason: dry eye(s)) magnesium citrate [Citroma] Solution 296 ml PO DAILY PRN (Reason: constipation) cyanocobalamin (vitamin B-12) 1,000 mcg capsule 1,000 mcg PO DAILY sodium phosphates 19-7 gram/118 mL enema 118 ml RECTAL DAILY PRN (Reason: constipation) Rx Instructions: INSERT 1 APPLICATION RECTALLY NEEDED FOR CONSTIPATION IF NO RESULTS 1 DAY AFTER SUPPOSITORY dextromethorphan-guaifenesin [Tussin DM] 10-100 mg/5 mL liquid 10 ml PO Q6H PRN (Reason: cough) ipratropium-albuterol 0.5 mg-3 mg(2.5 mg base)/3 mL solution for nebulization 3 ml INHALATION TID diclofenac sodium [Arthritis Pain (diclofenac)] 1 % gel 4 g topical BID Rx Instructions: APPLY TO RIGHT NEED sennosides-docusate sodium [2-in-1 Laxative] 8.6-50 mg tablet 2 tab-cap PO BID Rx Instructions: MAY HOLD FOR SOFT STOOL WITHIN 24 HOURS finasteride 5 mg tablet 5 mg PO DAILY hydrocodone-acetaminophen 5-325 mg tablet 1 tablet PO Q8H PRN (Reason: Pain (Scale Score 4-6)) Qty: 14 0RF lidocaine [Lidoderm] 5 % adhesive patch,medicated 1 patch topical DAILY Qty: 15 0RF Patient Comments: APPLY TO LOWER BACK TOPICALLY TWO TIMES A DAY Rx Instructions: leave on most painful area for up to 12 hrs carvedilol 3.125 mg Tablet 3.125 mg PO BID Rx Instructions: must administer with a meal/food magnesium hydroxide [Milk of Magnesia] 400 mg/5 mL Suspension 30 ml PO HS PRN (Reason: Constipation) Rx Instructions: if no BM in three days gabapentin 300 mg Capsule 300 mg PO BID omeprazole 20 mg Capsule,Delayed Release(Dr/Ec) 20 mg PO DAILY furosemide 20 mg Tablet 40 mg PO DAILY allopurinol 100 mg tablet 100 mg PO DAILY methotrexate sodium 2.5 mg tablet 15 mg PO DAILY potassium chloride 10 mEq tablet extended release 10 meq PO DAILY spironolactone 25 mg tablet 25 mg PO DAILY amlodipine 5 mg tablet 2.5 mg PO QAM ferrous sulfate 325 mg (65 mg iron) Tablet,Delayed Release (Dr/Ec) 325 mg PO TID folic acid 1 mg tablet 1 mg PO DAILY cholecalciferol (vitamin D3) [Vitamin D3] 125 mcg (5,000 unit) tablet 5,000 unit PO DAILY ascorbic acid (vitamin C) 500 mg capsule 500 mg PO BID loratadine [Allergy Relief (loratadine)] 10 mg tablet 10 mg PO DAILY polyethylene glycol 3350 [Miralax] 17 gram Powder In Packet 17 g PO QAM Qty: 10 0RF Patient Comments: HOLD FOR LOOSE STOOLS levothyroxine 100 mcg tablet 100 mcg PO DAILY Qty: 90 1RF tamsulosin 0.4 mg capsule 0.8 mg PO DAILY Qty: 180 1RF duloxetine 60 mg capsule,delayed release(DR/EC) 60 mg PO DAILY Qty: 30 1RF albuterol sulfate 90 mcg/actuation HFA aerosol inhaler 1 puff INHALATION Q4H PRN (Reason: shortness of breath or wheezing) Qty: 8.5 1RF Changed lactulose [Enulose] 10 gram/15 mL solution 30 ml PO DAILY PRN (Reason: Constipation) Qty: 237 0RF Date of admission: 12/14/24 07:48 Primary Care Provider: Raoul Forbes Admitting Provider: Salma Levine Attending physician on admission: Salma Levine Condition: Stable
== END 2024-12-18 18:28 | DRG 193 ==
LOC: ANHED 12-14 00:18 → ANH3MEDSUR 12-14 02:18
PROVIDERS: Nurse Practitioner Family; Admitting Provider Internal Medicine; Emergency Provider Physician Assistant; PCP Family Medicine; Visit Provider General Practice
DX: J10.00 Influenza due to other identified influenza virus with unspecified type of pneumonia (principal); E43 Unspecified severe protein-calorie malnutrition; E87.1 Hypo-osmolality and hyponatremia; T83.511A Infection and inflammatory reaction due to indwelling urethral catheter, initial encounter; N39.0 Urinary tract infection, site not specified; J44.0 Chronic obstructive pulmonary disease with (acute) lower respiratory infection; N18.31 Chronic kidney disease, stage 3a; K56.41 Fecal impaction; G20.A1 Parkinson's disease without dyskinesia, without mention of fluctuations; G47.33 Obstructive sleep apnea (adult) (pediatric); N40.1 Benign prostatic hyperplasia with lower urinary tract symptoms; R33.8 Other retention of urine; E03.9 Hypothyroidism, unspecified; K21.9 Gastro-esophageal reflux disease without esophagitis; B96.4 Proteus (mirabilis) (morganii) as the cause of diseases classified elsewhere; I12.9 Hypertensive chronic kidney disease with stage 1 through stage 4 chronic kidney disease, or unspecified chronic kidney disease; Z68.24 Body mass index [BMI] 24.0-24.9, adult; Z85.528 Personal history of other malignant neoplasm of kidney; Z90.49 Acquired absence of other specified parts of digestive tract
CPT/HCPCS: 36415; 36600; 71045; 71250; 74019; 74176; 80048; 80053; 81001; 82805; 83605; 83690; 83735; 83880; 84132; 85018; 85025; 85027; 85055; 85610; 85730; 87040; 87086; 87186; 87637; 92610; 93005; 94640; 94667; 96361; 96365; 96367; 96375; 96376; 99285; A9270; G0378; J0295; J0456; J0692; J1171; J1836; J2060; J2185; J7030

== ENCOUNTER 2025-01-06 12:28 | Inpatient (IN) | payer MEDICARE, MEDICAID, SELFPAY ==
[2025-01-06] VITALS (9 sets, daily range): BP systolic 86–115; BP diastolic 56–78; PULSE 66–85; RESP 15–20; TEMP 36.4–36.5; O2SAT 96–100; BMI 22.8
--- NOTE | ~2025-01-06 | CT_ITS ---
EXAMINATION: CT abdomen pelvis w con DATE: 01/06/2025 14:33 INDICATION: Abdominal pain. TECHNIQUE: Computed tomography (CT) of the abdomen and pelvis was performed with 100 mL Omnipaque 350 intravenous contrast. Automated exposure control and iterative reconstruction technique were employe d. The dose-length product was 802.98 mGy-cm. COMPARISON: CT abdomen and pelvis 12/13/2024 FINDINGS: The visualized portions of the lung bases demonstrate mild atelectasis. A calcified right l marisabel nodule and calcified right hilar lymph nodes are consistent with old granulomatous disease. There is a trace right pleural effusion. The heart size is normal. There are coronary artery calcification s. No pericardial effusion. The liver and spleen are normal. There are changes of cholecystectomy. Th e pancreas and adrenal glands are normal. There are changes of right nephrectomy. There are cysts in left kidney measuring up to 2.0 cm. The bladder is decompressed by a Duron catheter. Stool distends t he rectum. There is diverticulosis of the colon without evidence of diverticulitis. The appendix is n ot visualized. There are no pathologically enlarged lymph nodes. There is no free intraperitoneal flu id. There is a healed fracture of proximal right femur with internal fixation. There is moderate lumb ar spondylosis. IMPRESSION: 1. Stool distends the rectum. Reviewed, dictated and finalized at location B.
--- NOTE | ~2025-01-06 | XR_ITS ---
EXAMINATION: XR abdomen obstructive series DATE: 01/06/2025 14:02 INDICATION: Abdominal obstruction. TECHNIQUE: Upright and supine views of the abdomen on 3 radiographs were obtained. COMPARISON: Abdomen radiographs 12/16/24, CT abdomen and pelvis 12/13/2024 FINDINGS: There are no dilated loops of bowel. There is a small volume of stool in the colon. No free intraperitoneal gas. There are surgical clips in right abdomen. There is internal fixation of right femur. IMPRESSION: 1. Normal bowel gas pattern. Reviewed, dictated and finalized at location B.
[2025-01-06 13:27] LABS: Basophils Absolute Auto 0.1 K/mm3 (0.0-0.1); Basophils Percent Auto 0.5 % (0.2-1.2); Eosinophils Percent Auto 0.1 % (0-4.4); Hematocrit 29.7 % (42.0-52.0); Hemoglobin 9.7 g/dL (14.0-18.0); Immature Granulocyte Absolute 0.19 K/mm3 (0.00-0.031); Immature Granulocyte Percent A 1.1 % (0-0.5); Lymphocytes Percent Auto 38.3 % (18.3-44.2); Mean Corpuscular HGB Conc 32.7 g/dl (32-36); Mean Corpuscular Hemoglobin 28.3 pg (26-34); Mean Corpuscular Volume 86.6 fl (80-100); Mean Platelet Volume 10.2 fl (7.4-10.4); Monocytes Absolute Auto 0.8 K/mm3 (0.1-0.6); Monocytes Percent Auto 4.5 % (2.6-8.5); Neutrophils Absolute Auto 9.3 K/mm3 (1.3-6.7); Neutrophils Percent Auto 55.5 % (45.5-73.1); Platelet Count Result 240 k/mm3 (150-375); Red Blood Count 3.43 M/mm3 (4.6-6.20); Red Cell Distribution Width 18.5 % (11.5-14.5); White Blood Count 16.7 K/mm3 (4.5-10.0)
[2025-01-06 13:44] LABS: Add Urine Microscopic? YES; Appearance Urine Turbid (Clear); Bilirubin Urine Negative (Negative); Blood Urine Negative (Negative); Color Urine Dark Yellow (Yellow); Glucose Urine UA Negative (Negative); Ketones Urine Trace mg/dL (Negative); Leukocyte Esterase Ur 3+ LEU/UL (Negative); Nitrate Urine Negative (Negative); Protein Urine 2+ mg/dL (Negative); Specific Grav Ur 1.022 (1.001-1.035); pH Urine 8.5 (5.0-9.0)
[2025-01-06 14:03] LABS: Alanine Aminotransferase 7 U/L (6-50); Albumin Level 3.2 g/dL (3.5-5.1); Alkaline Phosphatase 85 U/L (38-126); Anion Gap 14 mmol/L (4-12); Aspartate Amino Transferase 17 U/L (17-59); Bilirubin,Total 0.8 mg/dL (0.2-1.3); Blood Urea Nitrogen 24 mg/dL (9-20); Calcium 8.3 mg/dL (8.4-10.2); Carbon Dioxide 18 mmol/L (22-30); Chloride 95 mmol/L (98-107); Estimated CRCL calculation 46 ml/min; Estimated Glomerular Filt Rate 60; Glucose 131 mg/dL (65-110); Lipase 65 U/L (23-300); Potassium 3.7 mmol/L (3.4-5.0); Sodium 127 mmol/L (137-145)
--- NOTE | 2025-01-06 14:10 | ED.ABDPAIN ---
HPI - Abdominal Pain General Chief Complaint: Abdominal Pain Stated Complaint: Abd pain Time Seen by Provider: 01/06/25 14:05 Source: EMS Mode of arrival: EMS Limitations: no limitations History of Present Illness HPI narrative: 84 YEARS OLD WHITE MALE CAME FROM PRISON BY AMBULANCE COMPLAINING OF LOWER ABDOMINAL PAIN. PATIENT ALSO COMPLAINING OF GENERAL WEAKNESS AND HAD 1 EPISODES OF VOMITING PRIOR TO ARRIVAL. Related Data Home Medications ?Medication ?Instructions ?Recorded ?Confirmed ?Last Taken ?Type alendronate 70 mg tablet 70 mg PO WEEKLY 06/03/23 12/14/24 12/07/24 History bisacodyl 10 mg rectal suppository 10 mg RECTAL DAILY PRN Constipation 06/03/23 12/14/24 11/17/23 History (Dulcolax (bisacodyl)) carvedilol 3.125 mg tablet 3.125 mg PO BID 11/22/23 12/14/24 Unknown History furosemide 20 mg tablet 40 mg PO DAILY 11/22/23 12/14/24 Unknown History gabapentin 300 mg capsule 300 mg PO BID 11/22/23 12/14/24 Unknown History magnesium hydroxide 400 mg/5 mL 30 ml PO HS PRN Constipation 11/22/23 12/14/24 Unknown History oral suspension (Milk of Magnesia) omeprazole 20 mg capsule,delayed 20 mg PO DAILY 11/22/23 12/14/24 Unknown History release atorvastatin 80 mg tablet 80 mg PO HS 12/04/23 12/14/24 Unknown History ondansetron 8 mg disintegrating 8 mg PO Q8H 04/13/24 12/14/24 Unknown History tablet allopurinol 100 mg tablet 100 mg PO DAILY 11/15/24 12/14/24 Unknown History amlodipine 5 mg tablet 2.5 mg PO QAM 11/15/24 12/14/24 Unknown History ascorbic acid (vitamin C) 500 mg 500 mg PO BID 11/15/24 12/14/24 Unknown History capsule cholecalciferol (vitamin D3) 125 5,000 unit PO DAILY 11/15/24 12/14/24 Unknown History mcg (5,000 unit) tablet (Vitamin D3) ferrous sulfate 325 mg (65 mg 325 mg PO TID 11/15/24 12/14/24 Unknown History iron) tablet,delayed release folic acid 1 mg tablet 1 mg PO DAILY 11/15/24 12/14/24 Unknown History loratadine 10 mg tablet (Allergy 10 mg PO DAILY 11/15/24 12/14/24 Unknown History Relief (loratadine)) methotrexate sodium 2.5 mg tablet 15 mg PO DAILY 11/15/24 12/14/24 Unknown History potassium chloride 10 mEq 10 meq PO DAILY 11/15/24 12/14/24 Unknown History tablet,extended release spironolactone 25 mg tablet 25 mg PO DAILY 11/15/24 12/14/24 Unknown History acetaminophen 325 mg tablet 650 mg PO Q4H PRN fever or pain 12/14/24 12/14/24 Unknown History cyanocobalamin (vitamin B-12) 1,000 mcg PO DAILY 12/14/24 12/14/24 Unknown History 1,000 mcg capsule dextran 70-hypromellose 0.1 %-0.3 1 drp EACH EYE BID PRN dry eye(s) 12/14/24 12/14/24 Unknown History % eye drops (Artificial Tears (dextran 70-hypromellose)) dextromethorphan-guaifenesin 10 10 ml PO Q6H PRN cough 12/14/24 12/14/24 Unknown History mg-100 mg/5 mL oral liquid (Tussin DM) diclofenac sodium 1 % topical gel 4 g topical BID 12/14/24 12/14/24 Unknown History (Arthritis Pain (diclofenac)) finasteride 5 mg tablet 5 mg PO DAILY 12/14/24 12/14/24 Unknown History fluticasone 250 mcg-salmeterol 50 1 inh inhalation Q12H 12/14/24 12/14/24 Unknown History mcg/dose blistr powdr for inhalation (Advair Diskus) ipratropium 0.5 mg-albuterol 3 mg 3 ml inhalation TID 12/14/24 12/14/24 Unknown History (2.5 mg base)/3 mL nebulization soln magnesium citrate (Citroma oral 296 ml PO DAILY PRN constipation 12/14/24 12/14/24 Unknown History solution) sennosides 8.6 mg-docusate sodium 2 tab-cap PO BID 12/14/24 12/14/24 Unknown History 50 mg tablet (2-in-1 Laxative) sodium phosphates 19 gram-7 118 ml RECTAL DAILY PRN 02/18/25 02/18/25 Unknown History gram/118 mL enema constipation Allergies Allergy/AdvReac Type Severity Reaction Status Date / Time azithromycin Allergy Unknown Unknown Verified 01/06/25 12:40 neomycin Allergy Unknown rash Verified 01/06/25 12:40 Sulfa (Sulfonamide Allergy Unknown Rash Verified 01/06/25 12:40 Antibiotics) castor oil AdvReac Intermediate Nausea and Verified 01/06/25 12:40 Vomiting erythromycin base AdvReac Intermediate SHAKING, Verified 01/06/25 12:40 HEADACHE Review of Systems Review of Systems: ROS unobtainable: Yes unobtainable due to mental status [facility] Past Medical History Medical History Depression with anxiety History of infection due to ESBL Escherichia coli Urinary retention due to benign prostatic hyperplasia Venous stasis dermatitis of both lower extremities Lung nodule Collagenous colitis Chronic indwelling Duron catheter Diastolic dysfunction Echo 01/2022: EF 60 65% Chronic obstructive pulmonary disease Hypothyroidism Benign prostatic hyperplasia Arthritis Degenerative disc disease Renal cell carcinoma of right kidney Status post right nephrectomy. Gastroesophageal reflux disease Silicosis Obstructive sleep apnea Chronic anemia Chronic kidney disease, stage 3 Baseline creatinine ranges between 1.30 and 1.40. Degenerative arthritis of knee, bilateral Chronic lymphocytic leukemia Cognitive impairment Essential hypertension Parkinson disease Primary osteoarthritis of both knees Surgical History Surgical History Status post open reduction with internal fixation of fracture Right femoral neck fracture History of arthroscopy of right knee History of cholecystectomy History of appendectomy History of repair of left rotator cuff History of cataract extraction History of right nephrectomy (2003) History of back surgery Family History Family History Father Family history of liver disease Family history of lung cancer Patient's father is Family history of primary malignant neoplasm of liver Mother Family history of heart disease in male family member before age 55 Patient's mother is Family history of coronary artery disease Acute myocardial infarction Sibling Family history of lung cancer Family history of malignant neoplasm of bone Patient's sister is Patient's brother is Malignant neoplasm of prostate Grandparent Family history of arthritis Other Family history of malignant neoplasm of kidney Social History Social History Social History: He is . The patient resides at [facility]. His son lives in the local area. The patient is retired from [employer]. No alcohol, tobacco, or illicit substance. He uses wheelchair for mobility and can stand to pivot. 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 MUSCULOSKELETAL: NORMAL RANGE OF MOTION, NONTENDER BACK NEUROLOGIC: ALERT AND ORIENTED TO HIS NAME AND AGE ONLY Course Vital Signs Vital signs: Vital Signs Temperature 36.4 C 01/06/25 12:28 Pulse Rate 85 01/06/25 12:28 Respiratory Rate 20 01/06/25 12:28 Blood Pressure 92/69 L 01/06/25 12:28 Pulse Oximetry 96 01/06/25 12:28 Oxygen Delivery Room Air 01/06/25 12:28 Temperature 36.4 C 01/06/25 12:28 Pulse Rate 79 01/06/25 13:23 Respiratory Rate 15 01/06/25 13:23 Blood Pressure 98/60 L 01/06/25 13:23 Pulse Oximetry 97 01/06/25 13:23 Oxygen Delivery Room Air 01/06/25 12:28 MDM - Abdominal Pain MDM Narrative Medical decision making narrative: PATIENT CAME FROM PRISON WITH ABDOMINAL PAIN AND WEAKNESS VITAL SIGN SHOWING BLOOD PRESSURE 92/69 OTHERWISE WITHIN NORMAL LIMIT PHYSICAL EXAMINATION CONSISTENT WITH SUPRAPUBIC TENDERNESS BLOOD WORKUP TODAY INCLUDES CBC, CMP, BLOOD CULTURE, LACTIC ACID, CRP, LIPASE SHOWED WBC 16.7 HEMOGLOBIN 9.7 HEMATOCRIT 29.7 SODIUM 127 URINE ANALYSIS SHOWED EVIDENCE OF INFECTION CT ABDOMEN AND PELVIS WITH IV CONTRAST SHOWED STOOL IN THE RECTUM ADMIT TO HOSPITALIST, DIAGNOSIS URINARY TRACT INFECTION Lab Data 01/06/25 13:17 01/06/25 13:17 Labs: Lab Results 01/06/25 Range/Units 13:17 WBC 16.7 H (4.5-10.0) K/mm3 RBC 3.43 L (4.6-6.20) M/mm3 Hgb 9.7 L (14.0-18.0) g/dL Hct 29.7 L (42.0-52.0) % MCV 86.6 (80-100) fl MCH 28.3 (26-34) pg MCHC 32.7 (32-36) g/dl RDW 18.5 H (11.5-14.5) % Plt Count 240 (150-375) k/mm3 MPV 10.2 (7.4-10.4) fl Immature Gran % (Auto) 1.1 H (0-0.5) % Neut % (Auto) 55.5 (45.5-73.1) % Lymph % (Auto) 38.3 (18.3-44.2) % [place] % (Auto) 4.5 (2.6-8.5) % Eos % (Auto) 0.1 (0-4.4) % Baso % (Auto) 0.5 (0.2-1.2) % Lymph # (Auto) 6.40 H (0.9-3.2) K/mm3 [place] # (Auto) 0.8 H (0.1-0.6) K/mm3 Eos # (Auto) 0.0 (0-0.3) K/mm3 Baso # (Auto) 0.1 (0.0-0.1) K/mm3 Abs Immat Gran (auto) 0.19 H (0.00-0.031) K/mm3 Absolute Neuts (auto) 9.3 H (1.3-6.7) K/mm3 Absolute Nucleated RBC 0.000 (0.0-0.012) K/mm3 Nucleated RBC % 0.0 (0.0-0.2) % Sodium 127 L (137-145) mmol/L Potassium 3.7 (3.4-5.0) mmol/L Chloride 95 L (98-107) mmol/L Carbon Dioxide 18 L (22-30) mmol/L Anion Gap 14 H (4-12) mmol/L BUN 24 H (9-20) mg/dL Creatinine 1.16 (0.7-1.3) mg/dL Estim Creat Clear Calc 46 ml/min Estimated GFR 60 (59 - ) Glucose 131 H (65-110) mg/dL Calcium 8.3 L (8.4-10.2) mg/dL Total Bilirubin 0.8 (0.2-1.3) mg/dL AST 17 (17-59) U/L ALT 7 (6-50) U/L Alkaline Phosphatase 85 (38-126) U/L Total Protein 7.0 (6.3-8.2) g/dL Albumin 3.2 L (3.5-5.1) g/dL Lipase 65 (23-300) U/L Urine Color Dark yellow (Yellow) Urine Appearance Turbid H (Clear) Urine pH 8.5 (5.0-9.0) Ur Specific [place] 1.022 (1.001-1.035) Urine Protein 2+ H (Negative) mg/dL Urine Glucose (UA) Negative (Negative) mg/dL Urine Ketones Trace H (Negative) mg/dL Ur Blood (Man) Negative (Negative) Urine Nitrate Negative (Negative) Urine Bilirubin Negative (Negative) Urine Urobilinogen 1.0 (<2.0) mg/dL Leukocyte Esterase Rfl 3+ H (Negative) PARUL/UL Imaging Data Radiologist's impression: ITS Impressions Abdomen X-Ray 01/06/25 14:08 IMPRESSION: 1. Normal bowel gas pattern. Critical Care Time Critical Care Time Critical Care Time: No Discharge Plan Discharge Clinical Impression: Urinary tract infection, Constipated, Weakness Patient Disposition: Still a Patient Condition: Stable Instructions: Antibiotic Form Patient Language: Frisian Prescriptions: No Action alendronate 70 mg tablet 70 mg PO WEEKLY Rx Instructions: every friday bisacodyl [Dulcolax (bisacodyl)] 10 mg suppository 10 mg RECTAL DAILY PRN (Reason: Constipation) ondansetron 8 mg tablet,disintegrating 8 mg PO Q8H carbidopa-levodopa [Sinemet] 25-100 mg tablet 3 tablet PO TID Qty: 240 6RF Rx Instructions: May increase to 3 tablets 4 times a day as necessary atorvastatin 80 mg tablet 80 mg PO HS acetaminophen 325 mg tablet 650 mg PO Q4H PRN (Reason: fever or pain) fluticasone propion-salmeterol [Advair Diskus] 250-50 mcg/dose blister with device 1 inh inhalation Q12H Artificial Tears([id number]) 0.1-0.3 % drops 1 drp EACH EYE BID PRN (Reason: dry eye(s)) magnesium citrate [Citroma] Solution 296 ml PO DAILY PRN (Reason: constipation) cyanocobalamin (vitamin B-12) 1,000 mcg capsule 1,000 mcg PO DAILY sodium phosphates 19-7 gram/118 mL enema 118 ml RECTAL DAILY PRN (Reason: constipation) Rx Instructions: INSERT 1 APPLICATION RECTALLY NEEDED FOR CONSTIPATION IF NO RESULTS 1 DAY AFTER SUPPOSITORY dextromethorphan-guaifenesin [Tussin DM] 10-100 mg/5 mL liquid 10 ml PO Q6H PRN (Reason: cough) ipratropium-albuterol 0.5 mg-3 mg(2.5 mg base)/3 mL solution for nebulization 3 ml INHALATION TID diclofenac sodium [Arthritis Pain (diclofenac)] 1 % gel 4 g topical BID Rx Instructions: APPLY TO RIGHT NEED sennosides-docusate sodium [2-in-1 Laxative] 8.6-50 mg tablet 2 tab-cap PO BID Rx Instructions: MAY HOLD FOR SOFT STOOL WITHIN 24 HOURS finasteride 5 mg tablet 5 mg PO DAILY oseltamivir [Tamiflu] 75 mg Capsule 75 mg PO Q12HR Qty: 10 0RF Rx Instructions: Please complete Osteltamivir 75 mg PO BID until 12/21/2024 guaifenesin [Mucus Relief ER] 600 mg Tablet Extended Release 12hr 600 mg PO Q12HR Qty: 30 0RF lactulose [Enulose] 10 gram/15 mL solution 30 ml PO DAILY PRN (Reason: Constipation) Qty: 237 0RF hydrocodone-acetaminophen 5-325 mg tablet 1 tablet PO Q8H PRN (Reason: Pain (Scale Score 4-6)) Qty: 14 0RF lidocaine [Lidoderm] 5 % adhesive patch,medicated 1 patch topical DAILY Qty: 15 0RF Patient Comments: APPLY TO LOWER BACK TOPICALLY TWO TIMES A DAY Rx Instructions: leave on most painful area for up to 12 hrs carvedilol 3.125 mg Tablet 3.125 mg PO BID Rx Instructions: must administer with a meal/food magnesium hydroxide [Milk of Magnesia] 400 mg/5 mL Suspension 30 ml PO HS PRN (Reason: Constipation) Rx Instructions: if no BM in three days gabapentin 300 mg Capsule 300 mg PO BID omeprazole 20 mg Capsule,Delayed Release(Dr/Ec) 20 mg PO DAILY furosemide 20 mg Tablet 40 mg PO DAILY allopurinol 100 mg tablet 100 mg PO DAILY methotrexate sodium 2.5 mg tablet 15 mg PO DAILY potassium chloride 10 mEq tablet extended release 10 meq PO DAILY spironolactone 25 mg tablet 25 mg PO DAILY amlodipine 5 mg tablet 2.5 mg PO QAM ferrous sulfate 325 mg (65 mg iron) Tablet,Delayed Release (Dr/Ec) 325 mg PO TID folic acid 1 mg tablet 1 mg PO DAILY cholecalciferol (vitamin D3) [Vitamin D3] 125 mcg (5,000 unit) tablet 5,000 unit PO DAILY ascorbic acid (vitamin C) 500 mg capsule 500 mg PO BID loratadine [Allergy Relief (loratadine)] 10 mg tablet 10 mg PO DAILY polyethylene glycol 3350 [Miralax] 17 gram Powder In Packet 17 g PO QAM Qty: 10 0RF Patient Comments: HOLD FOR LOOSE STOOLS levothyroxine 100 mcg tablet 100 mcg PO DAILY Qty: 90 1RF tamsulosin 0.4 mg capsule 0.8 mg PO DAILY Qty: 180 1RF duloxetine 60 mg capsule,delayed release(DR/EC) 60 mg PO DAILY Qty: 30 1RF albuterol sulfate 90 mcg/actuation HFA aerosol inhaler 1 puff INHALATION Q4H PRN (Reason: shortness of breath or wheezing) Qty: 8.5 1RF Follow-up/Referrals: Raoul Forbes MD [Primary Care Provider] -
[2025-01-06 14:20] LABS: RBC Urine 0-2 /hpf (0-2)
[2025-01-06 14:21] LABS: Squamous Epithelial Cell Urine Few /hpf (Few); Triple Phosphate Crystal Urine Many /hpf
[2025-01-06 14:22] LABS: Amorphous Sediment Urine Moderate; Bacteria Urine 1+ /hpf
[2025-01-06] MEDS: SODIUM CHLORIDE 0.9% IV 1,000 ML 999 ML IV CONT ×2 (14:36→16:32)
[2025-01-06] MEDS: MORPHINE SULFATE (*CRX) 4 MG/ML INJ IV PUSH (14:37)
[2025-01-06] MEDS: ONDANSETRON INJ 4 MG/2 ML VIAL IV PUSH (14:37)
--- OUTSIDE RECORDS SUMMARY | 2025-01-06 16:00 | XMS_ITS | Continuity of Care Document ---
Author Organization [facility] Address [address] [place] [address] [address] [place] [address] Phone Care Team Providers Care Mosaic Layer Name Role Phone Salena Remy Unavailable Unavailable [...] Diagnoses Date Provider Providers Copied on Encounter [facility], [address] [place] [address] [address], [place], [place], [id number], [place] tel:[phone] [facility] No Information 0 Sandrita Martino. [address] , [address], [place], [address], [place]. tel:[phone] [facility], [address], [place], [place], [id number], [place] tel:[phone] [facility] No Information 0 Sandrita Herman [address] , [address], [place], [place], [facility] [place], [place]. tel:[phone] [facility], [address], [place], [place], [id number], [place] tel:[phone] [facility] No Information 0 Francesco Dominguez. [address], [place], [place], [facility] [place]. tel:[phone] [facility], [address] [place] [address] [address], [place], [place], [id number], [place] tel:[phone] [facility] No Information 0 Sandrita Herman [address] , [address], [place], [place], [facility] [place], [place]. tel:[phone] [facility], [address], [place], [place], [id number], [place] tel:[phone] [facility] No Information 0 Sandrita Herman [address] , [address], [place], [facility] [place]. tel:[phone] Office/outpati ent Visit, [facility], [address] [place] [address] [address], [place], [place], [id number], [place] tel:[phone] [facility] No Information 0 Sandrita Herman [address] , [address], [place], [facility] [place]. tel:[phone] Referring Provider: Salena Dejesus, [address], [place], [address]. tel:[phone] [facility], [address] [place] [address] [address], [place], [place], [id number], [place] tel:[phone] [facility] No Information Nov-1 9-200 9 Remy Salena. [address] , [address], [place], [facility] [place], [place]. tel:[phone] [facility], [address] [place] [address] [address], [place], [place], [id number], [place] tel:[phone] [facility] No Information Oct-0 1-200 9 Sandrita Salena. [address] , [address], [place], [facility] [place]. tel:[phone] [facility], [address] [place] [address] [address], [place], [place], [id number], [place] tel:[phone] [facility] No Information Sep-3 0-200 9 Remy Salena. [address] , [address], [place], [facility] [place], [place]. tel:[phone] Office/outpati ent Visit, Est [facility], [address] [place] [address] [address], [place], [place], [id number], [place] tel:[phone] [facility] No Information Sep-2 4-200 9 Sandrita Washburnn. [address] , [address], [place], [facility] [place], [place]. tel:[phone] Office/outpati ent Visit, Est [facility], [address] [place] [address] [address], [place], [place], [id number], [place] tel:[phone] [facility] No Information Mar-1 2-200 9 Sandrita Salena. [address] , [address], [place], [facility] [place], [place]. tel:[phone] [facility], [address], [place], [place], [id number], [place] tel:[phone] [facility] No Information Dec-0 8-200 7 Remy Salena. [address], [place], [facility] [place]. tel:[phone] Referring Provider: René Jane, [address] [place], [place], [facility] [place]. tel:[phone] [facility], [address], [place], [place], [id number], [place] tel:[phone] [facility] No Information Feb-1 5-200 7 Remy Salena. [address] , [address], [place], [facility] [place], [place]. tel:[phone] Referring Provider: René Jane, [address], [place], [facility] [place]. tel:[phone] [facility], [address], [place], [place], [id number], [place] tel:[phone] [facility] No Information Feb-0 8-200 7 Remy Salena. [address], [address], [place], [address], [place]. tel:[phone] [facility], [address], [place], [place], [id number], [place] tel:[phone] [facility] No Information Feb-0 7-200 7 Remy Salena. [address] , [address], [place], [facility] [place], [place]. tel:[phone] Referring Provider: René Jane, [address] [place], [address]. tel:[phone] [facility], [address], [place], [place], [id number], [place] tel:[phone] [facility] No Information 7 Sandrita Martino. [address] , [address], [place], [facility] [place], . tel:[phone] Referring Provider: Salena Dejesus, [address], [place], [facility] [place]. tel:[phone] Office Consultation [facility], [address] [place] [address] [address], [place], [place], [id number], tel:[phone] [facility] No Information Ro Merritt. [address] [place] [address], [facility] [place], . tel:[phone] Referring Provider: Saelna Dejesus, [address], [place], [facility] [place]. tel:[phone] [facility], [address] [place] [address] [address], [place], [place], [id number], tel:[phone] [facility] [place] No Information 7 Sandrita Martino. [address] [place] [address] , [address], [place], [facility] [place], . tel:[phone] Family History Family Member Type Diagnosis Age At Onset No Information Payers Payer name Insurance type Covered green [...]
--- OUTSIDE RECORDS SUMMARY | 2025-01-06 16:00 | XMS_ITS | CONTINUITY OF CARE DOCUMENT ---
Author Name justin anderson Address Unknown Organization [facility] Address [address] [place] [address] [address] [place] [address] Phone [phone] Care Team Providers Care Magnet Maker Name Role Phone Chad Ann MD Unavailable [phone] IVÁN KOCH MD Unavailable IVÁN KOCH MD Unavailable RESULTS Date Observation Value Provider Reference Range Interpretation Location yeast identified on urinalysis No Alfredo Phan mucus on urinalysis Yes Alfredo Phan urine crystals, microscopic None Alfredo Phan epithelial cells, urine, per microscopy few Alfredo Phan casts, urine Few cassia Phan WBC urine on microscopy 3-5 cassia Phan bacteria, urine microscopy Few Alfredo Phan RBC urine by microscopy None Alfredo Phan leukocyte esterase, urine, by dipstick Negative Alfredo Phan urobilinogen, urine, semiquantitative (dipstick) Normal Alfredo Phan nitrite, urine, semiquantitative Negative Alfredo Phan RBC, urine, dipstick Negative Alfredo Phan bilirubin, urine Negative Alfredo Phan ketones, urine, by test strip Negative Alfredo Phan glucose, urine, semiquantitative Normal Alfredo Phan protein, urine, semiquantitative (dipstick) 25 etrrupa Phan pH, urine, semiquantitative 5.0 Alfredo Phan specific gravity, urine 1.025 Alfredo Phan urine color Amy [facility] appearance, urine Clear [facility] anion gap, serum 10.1 [facility] globulins, serum, total 3.0 g/dL [facility] estimated glomerular filtration rate 34 mL/min [facility] albumin/globulin ratio, serum 1.3 [facility] protein, total, serum 6.8 g/dL [facility] albumin, serum 3.8 g/dL [facility] bilirubin, serum, total 0.33 mg/dL [facility] alkaline phosphatase, serum 62 1/L [facility] alanine aminotransferase (SGPT), serum 36 1/L [facility] aspartate aminotransferase (SGOT), serum 19 1/L [facility] calcium, serum 9.3 mg/dL [facility] blood glucose, fasting 143 mg/dL [facility] creatinine, serum 2.09 mg/dL [facility] urea nitrogen, blood 39.2 mg/dL [facility] carbon dioxide, serum, total 27 mmol/L [facility] chloride, serum 104 mmol/L [facility] potassium, serum 4.1 mmol/L [facility] sodium, serum 137 mmol/L [facility] platelet count 87 10*3/uL [facility] red blood cell distribution width 13.9 % [facility] mean corpuscular hemoglobin concentration, RBC 34.3 g/dL [facility] mean corpuscular hemoglobin, RBC 29.1 pg [facility] mean corpuscular volume, RBC 84.7 fL [facility] hematocrit, blood 37.0 % [facility] hemoglobin, blood 12.7 g/dL [facility] erythrocyte (RBC) count 4.37 10*6/mm3 Alfredo Phan monocytes as percent of blood leukocytes 5 % Alfredo Phan lymphocytes as percent of blood leukocytes 30 % Alfredo Phan leukocyte count, blood 6.2 10*3/mm3 Alfredo Phan troponin I <0.04 Alfredo Phan creatine kinase, serum 99 1/L Alfredo Phan PTT patient 26.0 s Alfredo Phan prothrombin time (patient) 11.5 s Alfredo Phan international normalized ratio (INR) 1.1 Alfredo Phan INSURANCE PROVIDERS Payer name Policy type / Coverage type [place] [employer] party ID [place] Medicaid [id number] [place] [employer] Medicare [id number]
--- OUTSIDE RECORDS SUMMARY | 2025-01-06 16:00 | XMS_ITS | Encounter Summary ---
Author Organization [facility] Address [address] [facility] [place] [address] Care Team Providers Care Mosaic Worker Name Role Phone Ebony WILLARD MD, Devante Unavailable [phone] Setven Queen DO Primary Care Provider [phone] Encounter Details Date Type Department Care Team (Late st Contact Info) Description 04/05/2022 [facility] Outpatient Visit [facility] Orthopedics - Radiology [address] [place] [address] Document, Scanned Social History Tobacco Use Types [...] on filedocumented in this encounter Care Teams Mosaic Worker Relationship Specialty Start Date End Date Steven Queen DO [address] [place] [address] PCP - General Internal Medicine 06/14/22 [place] [address] DIAZ [address] [place] [address] Orthopedic Surgery 06/14/22 documented as of this encounter
--- OUTSIDE RECORDS SUMMARY | 2025-01-06 16:00 | XMS_ITS | Clinical Summary ---
Author Organization [facility] Address [address], [facility] [address] [place] [address] Phone Care Team Providers Care Healthcare Manager Name Role Phone Juan Diego Hennessy MD Unavailable [phone] Kale Jiménez MD Primary Care Provider [phone] Joe Smith MD Unavailable [phone] Lucio Pagan APRN, GYNAECOLOGICAL ONCOLOGIST Unavailable [phone] Allergies Active Allergy Reactions Criticality Noted Date Comments [place] Oil Nausea High 02/18/2019 shakes Codeine Nausea [...] atorvastatin (LIPITOR) 80 MG Tablet 1 Active HYDROcodone-kaushik taminophen (NORCO) 5-325 MG Tablet 2 Active amLODIPine [...] Take 80 mg by mouth. 3 Active carbidopa-levod opa (SINEMET) 10-100 MG Tablet Take 1 Tablet by mouth 3 times daily. 3 Active hydrocortisone 2.5 % Cream Apply 2 times daily. Application Site:back 30 g 2 3 Active Spiriva Respimat 2.5 MCG/ACT Aerosol Solution INHALE 2 PUFFS BY MOUTH ONCE DAILY 3 Active Anoro Ellipta 62.5-25 MCG/ACT AEROSOL POWDER, BREATH ACTIVATED INHALE 1 PUFF BY MOUTH DAILY 3 Active Active Problems Problem Noted Date Diagnosed [...] Team Description 12/06/2024 Travel 11/30/2024 10:45 AM HAND SOLE SEWER Office Visit [facility] [address] [place] [address] Lucio Pagan, BOOKKEEPING CLERKS SUPERVISOR, GYNAECOLOGICAL ONCOLOGIST Other retention of urine (Primary Dx) Discharge Disposition: Discharged to home or Selfcare 11/30/2024 Travel from Last 3 Months Immunizations Immunization Administration [...] Comments Blood Pressure 133/89 11/30/2024 11:01 AM HAND SOLE SEWER Pulse 76 11/30/2024 11:01 AM HAND SOLE SEWER Temperature 36.8 C (98.2 F) 10/06/2023 2:17 PM HAND SOLE SEWER Respiratory Rate 18 11/30/2024 11:01 AM HAND SOLE SEWER Oxygen Saturation 94% 11/30/2024 11:01 AM HAND SOLE SEWER Inhaled Oxygen Concentration - - Weight 77.6 kg (171 lb) 11/30/2024 11:01 AM HAND SOLE SEWER Height 177.8 cm (5' 10 ) 11/30/2024 11:01 AM HAND SOLE SEWER Body Mass Index 24.54 11/30/2024 11:01 AM HAND SOLE SEWER Plan of Treatment Health Maintenance Due Date Last Done Comments Hepatitis C Virus (HCV) Screening 1940 TdaP Immunization 1940 Respiratory Syncytial Virus (RSV) Immunization (Adult) (1 - 1-dose 75+ series) 02/10/2015 Influenza Immunization (#1) 06/27/202407/28, 08/01/2021, 06/20/2020, Additional history exists SARS-COV-2 Immunization ( season) 2024 10/17/2021, 10/13/2021, 01/20/2021, Additional history exists Zoster Immunization Completed 07/24/2021, Pneumococcal Immunization (50+ years) Completed 12/10/2022, 06/04/2019, [...] age to complete this topic Insurance [facility] [place] Advance Directives Documents on File Type Date Recorded Patient Principal Clerk Expl anation Power of Lawn Care Technician for Health Care 06/05/2023 11:07 AM POA 06/05/23 Care Teams Healthcare Manager Relationship Specialty Start Date End Date Kale Jiménez MD [address], [address] [place] [address] PCP - General Internal Medicine 11/03/19 Juan Diego Hennessy MD [address] [place], [place] [address] Consulting Physician Oncology 11/03/19 Joe Smith MD [address], [address] [place] [address] Nephrology 11/11/19 Lucio Pagan APRN, GYNAECOLOGICAL ONCOLOGIST [address] [place] [address] Nurse Practitioner Advanced Practice Nurse 10/06/23
--- OUTSIDE RECORDS SUMMARY | 2025-01-06 16:00 | XMS_ITS | Continuity of Care Document ---
Author Organization [facility] Address [address] [place] [address] Phone Care Team Providers Care Transportation Aid Name Role Phone Kuwaiti Raj LANE Unavailable Unavailable Allergies, Adverse Reactions, [...] needed 1 MG - Active Faxed to [facility] [phone] TAMSULOSIN HCL 0.4 MG CAPSULE TAKE ONE [...] Diagnoses Date Provider Providers Copied on Encounter [facility], [address], [place], [place], [id number] , tel: [phone] Bromide No Information 0 English Anthony. [address] [place] [address], [id number] , [place]. tel: [phone] [facility], [address], [place], [place], [address] , tel: [phone] Bromide No Information 9 English Anthony. [address] [place] [address], [id number] , [place]. tel: [phone] [facility], [address], [place], [address] , [place] tel: [phone] Bromide Benign prostatic hyperplasia, unspecified whether lower urinary tract symptoms present 9 English Anthony. [place], [address] , [place]. tel: [phone] [facility], [address], [place], [place], [address] , [place] tel: [phone] Bromide OAB (overactive bladder)Thrombocytope niaBenign prostatic hyperplasia, unspecified whether lower urinary tract symptoms present 9 English Anthony. [place], [address] , [place]. tel: [phone] Referring Provider: Raj [place], [address] . tel:[phone] [facility], [address], [place], [place], [address] , tel: [phone] Bromide No Information 9 English Anthony. [place], [address] , [place]. tel: [phone] [facility], [address], [place], [place], [address] , tel: [phone] Sally Abnormal CBC Oct- 9 English Anthony. [place], [address] , [place]. tel: [phone] [facility], [address], [place], [place], [address] , tel: [phone] Sally No Information 8 English Anthony. [place], [address] , [place]. tel: [phone] [facility], [address], [place], [place], [address] , tel: [phone] Sally Leukocytosis, unspecified type 8 English Anthony. [place], [address] , . tel: [phone] Referring Provider: [place], [address] . tel:[phone] [facility], [address], [place], [place], [address] , tel: [phone] Sally No Information 8 English Anthony. [address] [place], [place], [address] , . tel: [phone] [facility], [address], [place], [place], [address] , tel: [phone] Sally Pulmonary emphysema, unspecified emphysema typeHypertensive kidney disease, stage 1-4 or unspecified chronic kidney diseaseSecondary hyperparathyroidism (of renal origin)Current mild episode of major depressive disorder without prior episode 8 English Anthony. [address] [place] [address], [id number] , . tel: [phone] Referring Provider: [place], [address] . tel:[phone] [facility], [address], [place], [place], [address] , tel: [phone] Sally Diarrhea, unspecifie d type 8 English Anthony. [place], [place], [address] , . tel: [phone] [facility], [address], [place], [place], [address] , tel: [phone] [facility] Aortic ectasia, unspecified siteChronic silicosisHypothyroidi sm, unspecified typeHypertensive kidney disease, stage 1-4 or unspecified chronic kidney diseasePulmonary emphysema, unspecified emphysema typeAsymptomatic carotid artery stenosis, unspecified lateralityGeneralized anxiety disorderParkinson's diseaseBody mass index (BMI) 26.0-26.9, adult 8 English Anthony. [place], [address] , . tel: [phone] Referring Provider: [place], [address] . tel:[phone] [facility], [address], [place], [place], [address] , tel: [phone] Sally No Information 8 English Anthony. [place], [address] , [place]. tel: [phone] [facility], [address], [place], [place], [address] , tel: [phone] [facility] Gastroesophageal reflux disease without esophagitisThrombocyt openiaFacet arthropathy, cervicalParkinson's diseaseRecurrent major depressive disorder, in partial remission 8 English Anthony. [place], [address] , . tel: [phone] Referring Provider: [place], [address] . tel:[phone] [facility], [address], [place], [place], [address] , tel: [phone] Sally No Information 8 English Anthony. [place], [address] , [place]. tel: [phone] [facility], [address], [place], [place], [address] , tel: [phone] [facility] MARVIN (obstructive sleep apnea) 7 English John. [place], [address] , [place]. tel: [phone] [facility], [address], [place], [place], [address] , tel: [phone] Bromide Pulmonary emphysema, unspecified emphysema typeOSA (obstructive sleep apnea) 7 English John. [place], [address] , [place]. tel: [phone] [facility], [address], [place], [place], [address] , tel: [phone] [facility] Numbness in both handsVitiligo Jun- 7 English Anthony. [place], [address] , . tel: [phone] Referring Provider: [place], [address] . tel:[phone] [facility], [address], [place], [place], [address] , tel: [phone] Bromide Atherosclerosis of aortaAortic ectasia, unspecified siteOther chronic painBenign non-nodular prostatic hyperplasia without lower urinary tract symptomsLong term current use of opiate analgesic English Anthony. [place], [address] , [place]. tel: [phone] Referring Provider: [place], [address] . tel:[phone] [facility], [address], [place], [place], [address] , tel: [phone] Bromide Pain of right upper extremityOther chronic pain English Anthony. [place], [address] , [place]. tel: [phone] Referring Provider: [place], [address] . tel:[phone] [facility], [address], [place], [place], [address] , tel: [phone] Brom[facility] Gastrointestinal hemorrhage associated with intestinal diverticulosisIron deficiency anemia due to chronic blood lossChronic constipation English Anthony. [place], [address] , [place]. tel: [phone] Referring Provider: [place], [address] . tel:[phone] [facility], [address], [place], [place], [address] , tel: [phone] Bromide Rib pain on left side English Anthony. [place], [address] , . tel: [phone] Referring Provider: [place], [address] . tel:[phone] [facility], [address], [place], [place], [address] , tel: [phone] Sally Parkinson's disease English Anthony. [place], [place], [address] , [place]. tel: [phone] [facility], [address], [place], [place], [address] , [place] tel: [phone] Sally Rib pain on left side Kuwaiti Raj. [place], [place], [address] , [place]. tel: [phone] [facility], [address], [place], [place], [address] , [place] tel: [phone] Sally No Information English Anthony. [place], [address] , [place]. tel: [phone] [facility], [address], [place], [place], [address] , tel: [phone] Sally Shoulder impingement , rightVenous insufficiencyHyperten sive kidney disease, stage 1-4 or unspecified chronic kidney diseasePulmonary emphysema, unspecified emphysema type English Anthony. [place], [address] , [place]. tel: [phone] Referring Provider: [place], [address] . tel:[phone] [facility], [address], [place], [place], [address] , tel: [phone] Sally NeuropathyParkinson diseaseGeneralized anxiety disorderRecurrent major depressive disorder, in partial remissionHx of malignant neoplasm of kidneyHx of unilateral nephrectomyHypothyroi dism, unspecified typeEssential hypertensionChronic silicosisOveractive bladderBenign non-nodular prostatic hyperplasia without lower urinary tract symptomsOther vitamin B12 deficiency anemiaLeft leg swellingOSA (obstructive sleep apnea)Chronic pain due to traumaEncounter for long-term (current) use of other medicationsScreening for lipoid disorders 0 7 English Anthony. [address] [place], [place], [address] , [place]. tel:[phone] Referring Provider: Raj Vazquez, [address] [place], [address] . tel:[phone] Family History Family Member Type Diagnosis Age [...] Immunizations Vaccine Date Status Comments Fluzone High-Dose 9304-2528, high dose, preservative free administered Source: Source U nspecified Payers Payer name Insurance type Covered libertarian ID Authoriza tion(s) No Information Social History [...]
--- OUTSIDE RECORDS SUMMARY | 2025-01-06 16:00 | XMS_ITS | Encounter Summary ---
Author Organization [facility] Address [address] [place] [address] Phone Care Team Providers Care Electrical Installer Name Role Phone Juan Diego Hennessy MD Unavailable [phone] Kale Jiménez MD Primary Care Provider [phone] Joe Smith MD Unavailable [phone] Lucio Pagan APRN, CNP Unavailable [phone] Reason for Visit * Reason Comments Medication Refill Encounter Details Date Type Department Care Team (Late st Contact Info) Description 11/09/2022 Refill [facility] [address] [address] Juan Diego Hennessy MD [address] [place] [address] Medication Refill Social History Tobacco Use [...] Recorded Total Score - Questions 1-9 0 05/2022 Sex and Gender Information Value Date Recorded Sex Assigned at Not on file Legal Sex Male 7:58 PM CDT Gender Identity Not on file Sexual Orientation Not on file documented as of this encounter Miscellaneous Notes * Telephone Encounter - Boucher, Elvia L - 11/11/2022 8:47 AM CST Please refill if appropriate. CAL SCIENTIST documented in this encounter Plan of Treatment Not on file documented as of this encounter Visit Diagnoses Diagnosis CLL (chronic lymphocytic leukemia) (HCC) Chronic lymphoid leukemia, without mention of having achieved remission documented in this encounter Additional Health Concerns Assessment Noted Time PHQ-9 Depression Total Score: 0 07/26/20 21 9:20 AM CDT documented as of this encounter Care Teams Electrical Installer Relationship Specialty Start Date End Date Kale Jiménez MD [address], [address] [place] [address] PCP - General Internal Medicine 11/03/19 Juan Diego Hennessy MD [address] [place] [phone] Consulting Physician Oncology 11/03/19 Joe Smith MD [address] [place] [address] Nephrology 11/11/19 Lucio Pagan APRN, SHADE HANGER [address] [place] [address] Nurse Practitioner Advanced Practice Nurse 10/06/23 documented as of this encounter
--- OUTSIDE RECORDS SUMMARY | 2025-01-06 16:00 | XMS_ITS | Clinical Summary ---
Author Organization [facility] Address [address] [address] Phone Care Team Providers Care Nursing Director Name Role Phone Kory Morales MD Primary Care Provider [phone] Allergies Active Allergy Reactions Criticality Noted Date Comments [place] Oil Nausea Only,Nausea A nd Vomiting,Other (see [...] Department Care Team Description 11/29/2024 Documentation Only [facility], [address] [address] Joe Smith MD 11/29/2024 Documentation Only [facility], [address] [address] Joe Smith MD from Last [...] 83 kg (183 lb) 09/03/2022 10:31 AM MILL OPERATOR Height 177.8 cm (5' 10 ) 02/03/2024 10:18 AM CDT Body Mass Index [...] 8.7 8.7 - 10.7 mg/dL eGFR Non-Afr Turkmen 58(L) (TSH) Thyroid Stimulating Hormone 2.40 10/28/2024 us Historical Provider LAB BLOOD ORDERABLES Evelyne l Result from Last 3 Months Insurance MEDICAID [place] MED[place]ARE Care Teams Nursing Director Relationship Specialty Start Date End Date Kory Morales MD [address] [place] [address] PCP - General Family Medicine 06/15/24
--- OUTSIDE RECORDS SUMMARY | 2025-01-06 16:00 | XMS_ITS | Clinical Summary ---
Author Organization [facility] Address [address] [place] [address] Care Team Providers Care Asphalt Tile Floor Layer Name Role Phone Tania Salas MD Primary Care Provider [phone] Allergies Active Allergy Reactions Criticality Noted Date [...] 10:22 PM CDT Height 172.7 cm (5' 8 ) 03/26/2023 10:22 PM CDT Body Mass Index 24.57 03/26/2023 10:22 PM CDT Plan of Treatment Health Maintenance Due Date Last Done Comments PHQ-2 (Physician Cambria) 1952 DTaP, Tdap and Td Vaccines (1 - Tdap) 02/10/1959 Annual Medicare Wellness Visit 02/10/2005 Pneumococcal Vaccine: 65+ Years (1 of 1 - PCV) 02/10/2005 RSV Immunization or 60+ Years (1 - 1-dose 75+ series) 02/10/2015 COVID-19 Vaccine ( - season) 2024 10/17/2021, 01/20/2021, 12/28/2020 Influenza Adult (#1) 2024 07/28/2020, 06/20/2020, 07/27/2019, Additional history exists PHQ-2 (Physician Cambria) 10/27/2024 Zoster Vaccines Completed 07/24/2021, 09/15/2020 Meningococcal B Vaccine Aged Out No l onger eligible based on patient's age to complete this topic Meningococcal Vaccine Aged Out No whitney macrina eligible based on patient's age to complete this topic RSV Immunizations Under 20 Months Aged Out No longer eligible based on patient's age to complete this topic Insurance [id number] [id number] MEDICAID MED REPLACE [employer] Care Teams Asphalt Tile Floor Layer Relationship Specialty Start Date End Date [place] [address] PCP - General INTERNAL MEDICINE 03/26/23
--- OUTSIDE RECORDS SUMMARY | 2025-01-06 16:00 | XMS_ITS ---
Author Organization [facility] Care Team Providers Care Cloth Shearer Name Role Phone Ayaka Amador Unavailable Unavaila ble Stephie, Floyd Hartley Unavailable Unavailable Ampaanahi, Latanya Unavailable Unavailable Allergies and adverse reactions Code CodeSystem Substance Reaction Severity StartDate Concern Status 2128 RXNORM [place] Oil Unknown 09/24/2023 active 35349 RXNORM Azithromycin Unknown 09/24/2023 active Care Team Name Role Address Phone Organization Dates Floyd Card PCP [address] (Office): [facility] 09/24/2023 - 09/26/2023 Ayaka Amador Attending Physician [address] (Office): : [facility] 09/24/2023 - 09/26/2023 Latanya Card Attending Physician [address] (Office): : [facility] 09/24/2023 - 09/26/2023 Goals Section Description Status Target Date Current level of care is amilcar ropriate considering current physical/ social/ emotional status. Active 12/26/2023 If the resident's heart stop s, or if they stop breathing, CPR WILL be initiated in honor with their FULL code wishes. Active 10/2023 If the resident's heart stop s, or if they stop breathing, CPR will NOT be initiated in honor with their DNR wishes. Active 12/25 Minimize the risk of residen t exposure to the novel Coronavirus (COVID-19). Active 12/26/2023 Prevent a serious fall related injury Active 12/26/2023 Resident Discharge needs will be identified Acti ve 12/26/2023 Resident will be able to par ticipate in enjoyable activities during their stay Active 12/26/2023 Resident will be free from s igns and symptoms of abnormal bleeding through the next review date. Active 12/26/2023 Resident will be free of com plications related to ADL deficit through next review date: Active 12/26/2023 Resident will be kept clean and comfortable through next review date. Active 12/26/2023 Resident will have a regular bowel elimination pattern AEB soft/formed bowel movements at least once every three days through the next review: Active 12/26/2023 Resident will maintain a saf e and highest level of functioning through next review Active 12/26/2023 Resident will maintain intac t skin or current condition of skin integrity through next review date. Active 12/26/2023 Resident will not experience a decline in overall function related to pain through next review date. Active 12/26/2023 Resident will not experience serious side effects due to medication use. Active 12/26/2023 Resident will not have any s erious side effects related to cardiovascular medications and will not have any unrecognized signs of a worsening cardiovascular condition Active 12/26/19 Resident will participate in ordered therapy ser vices Active 12/26/2023 Resident will receive the le ast dosage of the prescribed psychotropic drug(s) to ensure maximum functional ability both mentally and physically through next review date. Active 10/2023 Resident will state/demonstr ate relief or reduction in pain intensity within one hour after receiving interventions through next review date. Active 12/26/2023 Resident's needs will be ant icipated and met by staff through next review date: Active 12/26/2023 Residents preferences will be honored as able Ac tive 12/26/2023 Residents respiratory condit ion will be managed and will experience no serious side effects from medications Active The patient will display adequate nutrition Acti ve 12/26/2023 The resident will be free from complications r/t use of catheter. Active 12/26/2023 The resident will be/remain free of psychotropic drug related complications, including abnormal movement disorder, discomfort, hypotension, gait disturbance, ADL decline or cognitive/behavioral impairment through review date. Active 12/26/2023 The resident will have impro yobani mood state (SPECIFY: happier, calmer appearance, no s/sx of depression, anxiety or sadness) through the review date. Active 12/26/2023 The resident will have no co mplications from thyroid disorder through the review date. Active 12/26/2023 The resident will have no in dications of psychosocial well-being problem by/through review date. Active 12/26/2023 The resident will maintain c urrent level of ADL function through the review date. Active 12/26/2023 The resident will maintain o ptimal quality of life within limitation imposed by visual function through the review date. Active 12/26/2023 The resident will not have a n interruption in normal activities due to pain through the review date. Active 12/26/2023 Medications Section Medication Name Status Code CodeSystem Dose Route Frequency Admin Type Sig Text Start Date End Date Citroma Solution 1.745 GM/30ML active 7972887 RXNORM 296 ml Oral as needed PRN Give 296 ml by mouth as needed for consti pation In AM if no result s after enema. If no result s within 1 hour of comple tion of bowel protoc ol, contac t immedi ately for furthe r orders . 2022 - Benzonatate Capsule 200 MG active 712275 RXNORM 1 capsul e Oral three times a day Routine Give 1 capsul e by mouth three times a day for cough 2022 - Saccharomyces boulardii Capsule 250 MG active 802599 RXNORM 1 capsul e Oral two times a day Routine Give 1 capsul e by mouth two times a day for probio tic 2022 - Budesonide Oral Capsule Delayed Release Particles 3 MG active 2002293 RXNORM 1 capsul e Oral one time a day Routine Give 1 capsul e by mouth one time a day for Respir atory 2022 - Alendronate Sodium Tablet 70 MG active 628435 RXNORM 1 tablet Oral one time a day Routine Give 1 tablet by mouth one time a day every Fri for supple ment 2022 - Albuterol Sulfate HFA Inhalation Aerosol Solution 108 (90 Base) MCG/ACT active 549634 RXNORM 1 puff Inhalat ion as needed PRN 1 puff inhale orally every 4 hours as needed for SOB/Wh eezing 2022 - Fleet Enema active 1 applic ation Rectal as needed PRN Insert 1 applic ation rectal ly as needed for for consti pation If no result s 1 day after suppos itory. 2022 - Milk of Magnesia Suspension 400 MG/5ML active 149156 RXNORM 30 ml Oral as needed PRN Give 30 ml by mouth as needed for Consti pation at bedtim e if not BM in 3 days 2022 - Bisacodyl Suppository 10 MG active 685815 RXNORM 1 suppos itory Rectal as needed PRN Insert 1 suppos itory rectal ly as needed for for consti pation daily if no result s for MOM 2022 - Levothyroxine Sodium Tablet 100 MCG active 391597 RXNORM 1 tablet Oral one time a day Routine Give 1 tablet by mouth one time a day for low thyroi d hormon e 2022 - Artificial Tears Ophthalmic Solution 0.1-0.3 % active 1 drop Ophthal latisha as needed PRN Instil l 1 drop in both eyes every 12 hours as needed for dry eyes 2022 - AmLODIPine Besylate Tablet 5 MG active 811879 RXNORM 1 tablet Oral one time a day Routine Give 1 tablet by mouth one time a day for HTN 2022 - Aspirin Low Dose Oral Tablet Chewable 81 MG active 1 tablet Oral one time a day Routine Give 1 tablet by mouth one time a day for ASA 2022 - Furosemide Tablet 20 MG active 998479 RXNORM 1 tablet Oral one time a day Routine Give 1 tablet by mouth one time a day for Edema 2022 - Senna Plus Oral Tablet 8.6-50 MG active 1 tablet Oral two times a day Routine Give 1 tablet by mouth two times a day for Consti pation 2022 - Carvedilol Tablet 3.125 MG active 255524 RXNORM 1 tablet Oral two times a day Routine Give 1 tablet by mouth two times a day for Hypert ension 2022 - Carbidopa-Lev odopa Oral Tablet 25-250 MG active 710714 RXNORM 1 tablet Oral three times a day Routine Give 1 tablet by mouth three times a day for Radha son's 2022 - DULoxetine HCl Capsule Delayed Release Particles 60 MG active 718383 RXNORM 1 capsul e Oral one time a day Routine Give 1 capsul e by mouth one time a day for depres jenn 2022 - Gabapentin Capsule 300 MG active 432009 RXNORM 1 capsul e Oral three times a day Routine Give 1 capsul e by mouth three times a day for Neurop athy 2022 - Atorvastatin Calcium Oral Tablet 80 MG active 045263 RXNORM 1 tablet Oral in the evening Routine Give 1 tablet by mouth in the evenin g for HLD 2022 - Finasteride Oral Tablet 5 MG active 783008 RXNORM 1 tablet Oral one time a day Routine Give 1 tablet by mouth one time a day for 2022 - Tamsulosin HCl Capsule active 0.8 mg Oral one time a day Routine Give 0.8 mg by mouth one time a day for benign prosta tic hyperp lasia 2022 - HYDROcodone-A cetaminophen Oral Tablet 5-325 MG active 808806 RXNORM 1 tablet Oral as needed PRN Give 1 tablet by mouth every 8 hours as needed for Pain 2022 - Sennosides Tablet 8.6 MG active 938292 RXNORM 2 tablet Oral two times a day Routine Give 2 tablet by mouth two times a day for consti pation 2022 - Omeprazole 20 MG Capsule delayed release active 044829 RXNORM 1 capsul e Oral one time a day Routine Give 1 capsul e by mouth one time a day for acid reflux 2022 - oxyBUTYnin Chloride ER 10 MG Tablet extended release 24 hr active 402522 RXNORM 1 tablet Oral one time a day Routine Give 1 tablet by mouth one time a day for prosta te do not crush 2022 - Imodium A-D Oral Tablet 2 MG active 263065 RXNORM 1 tablet Oral as needed PRN Give 1 tablet by mouth every 2 hours as needed for Diarrh ea 4mg with first loose. 2 mg with each loose stool therea fter do not exceed 14mg in 24 hours 2022 - Melatonin Tablet 3 MG active 19910329 RXNORM 3 mg Oral as needed PRN Give 3 mg by mouth every 24 hours as needed for Sleep 2022 - Mental Status Section Date Assessment Total Score Description 09/27/2023 BIMS 12 moderate cognit del impairment CAM 0 No delirium ind icated Problems Problem # Description Date of onset Resolved Date Code CodeSystem Concern Status 1 ACQUIRED ABSENCE OF KIDNEY 09/24/[address] active 2 ACUTE KIDNEY FAILURE, UNSPECIFIED 09/24/[address] active 3 ACUTE LEUKEMIA OF UNSPECIFIED CELL TYPE, IN REMISSION 09/24/[address] active 4 ACUTE ON CHRONIC DIASTOLIC (CONGESTIVE) HEART FAILURE 09/24/[address] active 5 ANEMIA, UNSPECIFIED 09/24/[address] active 6 BENIGN PROSTATIC HYPERPLASIA WITH LOWER URINARY TRACT SYMPTOMS 09/24/[address] active [address]ATHY, UNSPECIFIED 09/24/[address] active 8 CHRONIC KIDNEY DISEASE, UNSPECIFIED 09/24/[address] active 9 DIARRHEA, UNSPECIFIED 09/24/[address] active 10 ESSENTIAL (PRIMARY) HYPERTENSION 09/24/[address] active 11 GASTRO-ESOPHAGEAL REFLUX DISEASE WITHOUT ESOPHAGITIS 09/24/[address] active 12 HYPERLIPIDEMIA, UNSPECIFIED 09/24/[address] active 13 HYPO-OSMOLALITY AND HYPONATREMIA 09/24/[address] active 14 HYPOTHYROIDISM, UNSPECIFIED 09/24/[address] active 15 MUSCLE WEAKNESS (GENERALIZED) 09/24/[address] active 16 OTHER SPECIFIED ARTHRITIS, MULTIPLE SITES 09/24/[address] active 17 PARKINSON'S DISEASE WITH DYSKINESIA, WITHOUT MENTION OF FLUCTUATIONS 09/24/[address] active 18 PERSISTENT MOOD [AFFECTIVE] DISORDER, UNSPECIFIED 09/24/[address] active 19 UNSPECIFIED PROTEIN-CALORIE MALNUTRITION 09/24/[address] active 20 URINARY TRACT INFECTION, SITE NOT SPECIFIED 09/24/[address] active Reason for Referral No Reasons for Referral Entered Social History Social History Observation Description Start Date End Date Code Code System Current Smoking Status Tobacco smoking consumption unknown 270398655 SNOMED CT Sex Assigned At Male 1940 17845-5 [facility] Vital Signs Code Code System Vitals Name Values and Units Timing Information 14111-5 [facility] Pain Level Value=0.0 10/11/2023 9279-1 [facility] Respiratory Rate Value=20.0 Units=/m in 09/25/2023 8462-4 [facility] Blood Pressure-Diastolic Value=82 Un its=mmHg 09/25/2023 8480-6 [facility] Blood Pressure-Systolic Qksgp=952 Un its=mmHg 09/25/2023 8310-5 [facility] Body Temperature Value=98.2 Units= F 09/25/2023 8867-4 [facility] Heart rate Value=64.0 Units=/min 8302-2 [facility] Height Value=70.0 Units=Inches 09/25/2023 57800-2 [facility] O2 % BldC Oximetry Wmkuy=381.0 Units =% 09/25/2023
--- OUTSIDE RECORDS SUMMARY | 2025-01-06 16:00 | XMS_ITS | Encounter Summary ---
Author Organization [facility] Address [address] [place] [address] Phone Care Team Providers Care Financial Reporting Director Name Role Phone Juan Diego Hennessy MD Unavailable [phone] Kale Jiménez MD Primary Care Provider [phone] Joe Smith MD Unavailable [phone] Lucio Pagan APRN, CNP Unavailable + [phone] Reason for Visit * Reason Comments Medication Refill Encounter Details Date Type Department Care Team (Late st Contact Info) Description 05/26/2021 Refill [facility] [address] [place] [address] Juan Diego Hennessy MD [address] [place] [address] Medication Refill Social History Tobacco [...] Total Score - Questions 1-9 0 /0 10/2020 Sex and Gender Information Value Date [...] documented as of this encounter Care Teams Financial Reporting Director Relationship Specialty Start Date End Date Kale Jiménez MD [address], [address] [place] [address] PCP - General Internal Medicine 11/03/19 Juan Diego Hennessy MD [address] [place] [id number] Consulting Physician Oncology 11/03/19 Joe Smith MD [address], [address] [place] [address] Nephrology 11/11/19 Lucio Pagan APRN, ECHO VASCULAR TECHNOLOGIST [address] [place] [address] Nurse Practitioner Advanced Practice Nurse 10/06/23 documented as of this encounter
--- NOTE | 2025-01-06 16:01 | PC.NURSE ---
this RN called pt facility to let them know the pt will be admitted due to UTI. this RN asked when the last time pt strauss was changed, RN was unsure and the chart was never documented with the date. pt facility also said the pt baseline is A&OX2 and confused
--- OUTSIDE RECORDS SUMMARY | 2025-01-06 16:01 | XMS_ITS ---
Author Organization [facility] Care Team Providers Care Mobile Home Installer Name Role Phone Tania Salas Unavailable Unavailable Lu Fernandez Unavailable Unavailable Niurka Reddy Unavailable Unavailable Alberto Carlson Unavailable Unavailable Allergies and adverse reactions Code CodeSystem Substance Reaction Severity StartDate Concern Status 7299 RXNORM Neomycin Mild 03/22/2023 active 4419 RXNORM Fish Oil Moderate 03/22/2023 active 4053 RXNORM Erythromycin Mild 03/22/2023 active 2670 RXNORM Codeine Nausea (code- 459648459, SNOMED CT) Moderate 03/21/2023 active 2129 RXNORM [place] Oil Nausea (code- 544485614, SNOMED CT) Moderate 03/21/2023 active Care Team Name Role Address Phone Organization Dates Tania Salas PCP [address] [place], [address], [place] (Office): : : [facility] 03/27/2023 - 05/26/2023 Lu Fernandez Attending Physician [address] [place], [address], [facility] (Office): : : [facility] 03/27/2023 - 05/26/2023 Niurka Reddy Attending Physician [address], [address], [place], [address], [place] (Office): [facility] 03/27/2023 - 05/26/2023 Alberto Carlson Attending Physician [address] [place], [address], [place] (Office): : : [facility] 03/27/2023 - 05/26/2023 Immunizations Immunization Status Vaccine Details Vaccine Code CodeSystem Date Notes Influenza completed Influenza, split virus, trivalent, injectable, contains preservative 141 CVX created date: 03/28/2023 administere d date: 02/20/2023 TB 1 Step Mantoux (PPD) completed tuberculin skin test; unspecified formulation lotNumber: [id number]` expiry: 03/24/2025 Mfg: tuberculin Given 0.1 ml Right Forearm intradermally 98 CVX created date: 04/01/2023 consent date: 04/01/2023 administere d date: 04/01/2023 Pneumococcal PPV 23 completed pneumococcal polysaccharide vaccine, 23 valent 33 CVX created date: 04/01/2023 administere d date: 12/10/2022 COVID-19 Pfizer Booster completed SARS-COV-2 (COVID-19) vaccine, mRNA, spike protein, LNP, preservative free, 30 mcg/0.3mL dose 208 CVX created date: 04/01/2023 administere d date: 12/06/2020 COVID-19 Bivalent (Pfizer) completed SARS-COV-2 (COVID-19) vaccine, mRNA, spike protein, LNP, bivalent, preservative free, 30 mcg/0.3 mL dose, shahida-sucrose formulation 300 CVX created date: 04/01/2023 administere d date: 10/13/2021 COVID-19 Bivalent (Pfizer) completed SARS-COV-2 (COVID-19) vaccine, mRNA, spike protein, LNP, bivalent, preservative free, 30 mcg/0.3 mL dose, shahida-sucrose formulation 300 CVX created date: 04/01/2023 administere d date: 01/03/2021 Mental Status Section Date Assessment Total Score Description 05/26/2023 CAM 0 No delirium ind icated PHQ-9 00 04/02/2023 BIMS 14 cognitively int act CAM 0 No delirium ind icated PHQ-9 00 Problems Problem # Description Date of onset Resolved Date Code CodeSystem Concern Status 1 DIFFICULTY IN WALKING, NOT ELSEWHERE CLASSIFIED 05/26/[address] active 2 MUSCLE WEAKNESS (GENERALIZED) 05/26/[address] active 3 UNSPECIFIED LACK OF COORDINATION 05/26/[address] active 4 TINEA PEDIS 04/04/[address] active 5 BENIGN PROSTATIC HYPERPLASIA WITH LOWER URINARY TRACT SYMPTOMS 03/27/[address] active 6 DEPRESSION, UNSPECIFIED 03/27/[address] active 7 GASTRO-ESOPHAGEAL REFLUX DISEASE WITHOUT ESOPHAGITIS 03/27/[address] active 8 HYPERLIPIDEMIA, UNSPECIFIED 03/27/[address] active 9 INFLUENZA DUE TO OTHER IDENTIFIED INFLUENZA VIRUS WITH OTHER RESPIRATORY MANIFESTATIONS 03/27/[address] active 10 PNEUMONIA, UNSPECIFIED ORGANISM 03/27/[address] active 11 PRIMARY OSTEOARTHRITIS, UNSPECIFIED SITE 03/27/[address] active 12 URINARY TRACT INFECTION, SITE NOT SPECIFIED 03/27/[address] active 13 ANEMIA IN CHRONIC KIDNEY DISEASE 03/21/[address] active 14 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 03/21/[address] active 15 CHRONIC KIDNEY DISEASE, STAGE 3A 03/21/[address] active 16 CHRONIC OBSTRUCTIVE PULMONARY DISEASE, UNSPECIFIED 03/21/[address] active 17 DISPLACED FRACTURE OF BASE OF NECK OF RIGHT FEMUR, SUBSEQUENT ENCOUNTER FOR CLOSED FRACTURE WITH ROUTINE HEALING 03/21/[address] active 18 ENCOUNTER FOR OTHER ORTHOPEDIC AFTERCARE 03/21/[address] active 19 ESSENTIAL (PRIMARY) HYPERTENSION 03/21/[address] active 20 FRACTURE OF UNSPECIFIED PART OF NECK OF RIGHT FEMUR, SUBSEQUENT ENCOUNTER FOR CLOSED FRACTURE WITH ROUTINE HEALING 03/21/[address] active 21 HYPOTHYROIDISM, UNSPECIFIED 03/21/[address] active 22 OBSTRUCTIVE SLEEP APNEA (ADULT) (PEDIATRIC) 03/21/[address] active 23 PARKINSON'S DISEASE 03/21/[address] active 24 REPEATED FALLS 03/21/[address] active Reason for Referral No Reasons for Referral Entered Social History Social History Observation Description Start Date End Date Code Code System Current Smoking Status Tobacco smoking consumption unknown 345439934 SNOMED CT Sex Assigned At Male 1940 04105-1 [facility] Vital Signs Code Code System Vitals Name Values and Units Timing Information 07544-3 [facility] Pain Level Value=5.0 05/26/2023 9279-1 [facility] Respiratory Rate Value=18.0 Units=/m in 05/26/2023 8462-4 [facility] Blood Pressure-Diastolic Value=65 Un its=mmHg 05/26/2023 8480-6 [facility] Blood Pressure-Systolic Knryx=198 Un its=mmHg 05/26/2023 8310-5 [facility] Body Temperature Value=97.7 Units= F 05/26/2023 8867-4 [facility] Heart rate Value=73.0 Units=/min 28756-3 [facility] O2 % BldC Oximetry Value=98.0 Units= % 05/26/2023 13751-3 [facility] Weight Buwbi=355.0 Units=Lbs 03/2023 8302-2 [facility] Height Value=68.0 Units=Inches 03/28/2023 2339-0 [facility] Blood Sugar Nxbqa=283.0 Units=mg/dL 03/27/2023
--- OUTSIDE RECORDS SUMMARY | 2025-01-06 16:01 | XMS_ITS | Patient Health Summary ---
Author Organization [facility] Address [address] [place] [address] Care Team Providers Care Jukebox Operator Name Role Phone Ebony WILLARD MD, Devante Unavailable [phone] Steven Queen DO Primary Care Provider [phone] Note from [facility],non-owned Affiliates and Associated Physician Practices is amultiple site organization consisting of ambulatory clinics and hospital sitesin [place], [place], [place] and [place]. This disclosure is being madepursuant to the Care Everywhere program and may not contain all information available regarding this patient. Last updated 18.[facility] Allergies * Tuckerman Oil(Nausea and/or Vomiting,Other) -High Criticality * Codeine(Nausea [...] medical care, and heating? Somewhat hard 02/20/2023 [facility] - Occupational Stress Questionnaire Answer Date [...] place to sleep or slept in a longterm (including now)? No 02/20/2023 Sex and Gender [...] 10:19 AM CDT Height 177.8 cm (5' 10 ) 04/02/2024 10:19 AM CDT Body Mass Index 28.55 04/02/2024 10:19 AM CDT Medical Devices Implanted Type Area Exercise Physiologist Certified Device Identifier Shelf Expiration Date Model / Serial / Lot Lag Screw 100mm Implanted:Qty: 1 on 02/20/2023 at [facility] 280.301 / / 280.301 Screw 4.5mm 8mm 46mm 3.5mm Slf-Tap Lg Implanted:Qty: 1 on 02/20/2023 at [facility] [employer] 214.846 / / Screw 4.5mm 8mm 40mm 3.5mm Slf-Tap Lg Implanted:Qty: 1 on 02/20/2023 at [facility] [employer] [facility] 214.840 / / Screw 36mm Hip Cndrl Comp Dhs Dcs Ss Implanted:Qty: 1 on 02/20/2023 at [facility] [employer] 280.990 / / Plate 2 Hl Lopro Comp Hip Cndrl 46x19 Implanted:Qty: 1 on 02/20/2023 at [facility] [employer] [facility] 281.021S / / Explanted Type Area Exercise Physiologist Certified Device Identifier Shelf Expiration Date Model / Serial / Lot Screw 12.7mm 8mm 2.7mm 95mm Hip Cndrl Explanted:Qty: 1 on 02/20/2023 at [facility] [employer] [facility] 280.295S / / Procedures * PROC UROFLOWMETRY(Performed 04/02/2024) Performed for Urinary retention * CO MSR PVR U&/BLADD CAPCTY US NON(Performed 04/02/2024) [...] of neck of right femur, initial encounter ([facility]) * FL RODNEY SURGERY(Performed 02/20/2023) Performed for Closed fracture of neck of right femur, initial encounter ([facility]) * CLOSED REDUCTION EXTERNAL FIXATION LOWER EXTREMITY(Performed 02/20/2023) Performed for Closed fracture of neck of right femur, initial encounter ([facility]) * ENDOTRACHEAL TUBE NOTE(Performed 02/20/2023) * CT PELVIS WO CONTRAST(Performed 02/19/2023) Performed for Closed fracture of neck of right femur, initial encounter ([facility]) * EKG 12-LEAD(Performed 02/19/2023) Performed for Fall, initial encounter, Closed fracture of neck of right femur, initial encounter ([facility]) * XR CHEST 1VW PORTABLE(Performed 02/19/2023) Performed [...] SLU(Performed 03/20/2021) Performed for Urinary frequency * CO MSR PVR U&/BLADD CAPCTY US NON(Performed 02/06/2021) [...] Gerry Escobar PROCEDURE/MINOR SURG ICAL ORDERABLES * CO MSR PVR U&/BLADD CAPCTY US NON (04/02/2024 [...] fracture. Report dictated by Krzysztof Pham MD (radiology supervisor). I, Marco Antonio Flaherty MD have personally reviewed and interpreted this examination/study. > Interpreting Provider: Marco Antonio Flaherty MD on 04/30/2023 9:40 AM Narrative 04/30/2023 9:40 AM CDT PROCEDURE: XR FEMUR RIGHT 2VW, DATE/TIME OF EXAM: 04/30/2023 9:19 AM, LOCATION [facility] INDICATION: S72.001A: Closed fracture of neck of right femur, initial encounter ([facility]) ADDITIONAL CLINICAL INFORMATION: Ordering Provider Reason For [...] DATE/TIME OF EXAM: 04/30/2023 9:19 AM, LOCATION [facility] INDICATION: S72.001A: Closed fracture of neck of right femur, initial encounter ([facility]) ADDITIONAL CLINICAL INFORMATION: Ordering Provider Reason For [...] fracture. Report dictated by Krzysztof Pham MD (radiology supervisor). I, Marco Antonio Flaherty MD have personally [...] detected Not detected 03/21/20 10:17 AM CDT [facility] Microbiology SPECIMEN FROM NASOPHARYNGEAL STRUCTURE / Unknown Collection / Unknown 03/21/2023 9:23 AM CDT 03/21/2023 9:37 AM CDT Narrative [facility] - 03/21/2023 10:17 AM CDT The [...] Butt MD LAB - MICROBIO LOGY ORDERABLES [facility] [address] [place] [address], [facility] [phone] * XR HIP RIGHT 2VW OR MORE (03/19/2023 6:05 PM CDT) Only the most recent of4 resultswithin the time period is included. Anatomical Region Laterality Modality Pelvis, Lower Extremity Radiogra phic Imaging 03/20/2023 8:03 AM CDT Narrative 03/21/2023 2:46 AM CDT PROCEDURE: XR HIP RIGHT 2VW OR MORE, DATE/TIME OF EXAM: 03/19/2023 6:05 PM, LOCATION [facility] INDICATION: S72.001A: Closed fracture of neck of right femur, initial encounter ([facility]) ADDITIONAL CLINICAL INFORMATION: Ordering Provider Reason For Exam: fx COMPARISON: Right hip x-ray dated 03/05/2023. FINDINGS-IMPRESSION: Redemonstrated internal fixated right intertrochanteric femoral fracture within the dynamic screw. The fracture alignment is unchanged. There is mild heterotopic ossification around the intertrochanteric femur. Vascular calcifications are present. Report dictated by Krzysztof Pham MD (radiology supervisor). Casey Peña MD have personally reviewed and interpreted this examination/study. > Interpreting Provider: Casey Thomas MD on 03/21/2023 2:46 AM Procedure Note Casey Thomas MD - 03/21/2023 PROCEDURE: XR HIP RIGHT 2VW OR MORE, DATE/TIME OF EXAM: 03/19/2023 6:05 PM, LOCATION [facility] INDICATION: S72.001A: Closed fracture of neck of right femur, initial encounter ([facility]) ADDITIONAL CLINICAL INFORMATION: Ordering Provider Reason For Exam: fx COMPARISON: Right hip x-ray dated 03/05/2023. FINDINGS-IMPRESSION: Redemonstrated internal fixated right intertrochanteric femoral fracture within the dynamic screw. The fracture alignment is unchanged. There is mild heterotopic ossification around the intertrochanteric femur.Vascular calcifications are present. Report dictated by Krzysztof Pham MD (radiology supervisor). Casey Peña MD have personally reviewed and interpreted this examination/study. > Interpreting Provider: Casey Thomas MD on 03/21/2023 2:46 AM Alicia Carbajal PA-C DIAGNOSTIC I MAGING ORDERABLES * MAGNESIUM BLOOD (03/17/2023 4:35 AM CDT) Only the most recent of21 resultswithin the time period is included. Magnesium 1.9 1.6 - 2.6 mg/dL 03/17/2023 5:43 AM CDT [facility] Blood BLOOD SPECIMEN / Unknown Lab Venipuncture / Unknown 03/17/2023 4:35 AM CDT 03/17/2023 5:15 AM CDT Osama A Tony MD LAB - CHEMISTRY ALIE PAYAN [facility] [address] [place] [address], [facility] [phone] * (ABNORMAL) CBC W/O DIFFERENTIAL (03/15/2023 7:30 AM CDT) Only the most recent of17 resultswithin the time period is included. WBC 6.9 3.5 - 10.5 10 3/uL 03/15/2023 8:40 AM [facility] RBC 3.55(L) 4.30 - 5.70 10 6/uL 03/15/2023 8:40 AM [facility] Hemoglobin 9.5(L) 12.0 - 17.6 g/dL 03/15/2023 8:40 AM [facility] Hematocrit 30.2(L) 35.2 - 51.7 % 03/15/2023 8:40 AM [facility] MCV 85.1 80.7 - 98.3 fL 03/15/2023 8:40 AM [facility] MCH 26.8 26.7 - 34.0 pg 03/15/2023 8:40 AM [facility] MCHC 31.5 30.8 - 35.9 g/dL 03/15/2023 8:40 AM [facility] RDW-SD 53.5(H) 36.0 - 50.0 fL 03/15/2023 8:40 AM [facility] RDW-CV 17.4(H) 11.2 - 14.8 % 03/15/2023 8:40 AM [facility] Platelet Count 186 150 - 400 10 3/uL 03/15/2023 8:40 AM [facility] MPV 10.3 9.4 - 12.9 fL 03/15/2023 8:40 AM [facility] nRBC Absolute 0.00 0 10 3/uL 03/15/2023 8:40 AM [facility] nRBC Auto 0.0 0 /100 WBC 03/15/2023 8:40 AM [facility] Blood BLOOD SPECIMEN / Unknown Lab Venipuncture / Unknown 03/15/2023 7:30 AM CDT 03/15/2023 8:31 AM CDT Eladio Jimenez MD LAB - HEMATOLOGY ORD ERABLES [facility] [address] [place] [address], [facility] [phone] * (ABNORMAL) RENAL FUNCTION PANEL (03/15/2023 7:30 AM CDT) Only the most recent of16 resultswithin the time period is included. BUN 30(H) 7 - 26 mg/dL 03/15/2023 9:15 AM [facility] Creatinine 1.01 0.71 - 1.16 mg/dL 03/15/2023 9:15 AM [facility] Sodium 137 136 - 145 mmol/L 03/15/2023 9:15 AM [facility] Potassium 4.1 3.5 - 4.5 mmol/L 03/15/2023 9:15 AM [facility] Chloride 102 98 - 107 mmol/L 03/15/2023 9:15 AM [facility] CO2 24 22 - 29 mmol/L 03/15/2023 9:15 AM [facility] Glucose 83 70 - 115 mg/dL 03/15/2023 9:15 AM [facility] Albumin 2.9(L) 3.4 - 5.0 g/dL 03/15/2023 9:15 AM [facility] Calcium 8.8 8.4 - 10.2 mg/dL 03/15/2023 9:15 AM [facility] Phosphorus 3.9 2.8 - 5.1 mg/dL 03/15/2023 9:15 AM [facility] Anion Gap 15 8 - 18 03/15/2023 9:15 AM [facility] BUN/Creatinine Ratio 30(H) 7 - 23 03/15/2023 9:15 AM [facility] Osmolality Calculated 289 270 - 300 mOsm/kg 03/15/2023 9:15 AM [facility] eGFR by CKD-EPI 74(L) >=90 mL/min/1.7 3 m2 03/15/2023 9:15 AM CDT [facility] Blood BLOOD SPECIMEN / Unknown Lab Venipuncture / Unknown 03/15/2023 7:30 AM CDT 03/15/2023 8:33 AM CDT Eladio Jimenez MD LAB - CHEMISTRY ALIE PAYAN [place] Organization Address City/State/ZIP Co de Phone Number [facility] [address] [place] [address], [facility] [phone] * MRI BRAIN WO CONTRAST (02/27/2023 10:42 [...] DATE/TIME OF EXAM: 02/27/2023 9:50 PM, LOCATION [facility] INDICATION: J43.9: Pulmonary emphysema, unspecified emphysema type [...] shoulder. Report dictated by Ric Booker MD (radiology supervisor). RAINA Peña MD have personally reviewed and interpreted this examination/study. > Interpreting Provider: RAINA PETER MD on 02/28/2023 12:47 PM Procedure Note Raina Peter MD - 02/28/2023 PROCEDURE: XR CHEST 2VW, DATE/TIME OF EXAM: 02/27/2023 9:50 PM, LOCATION [facility] INDICATION: J43.9: Pulmonary emphysema, unspecified emphysema type [...] shoulder. Report dictated by Ric Booker MD (radiology supervisor). RAINA Peña MD have personally reviewed and [...] Report dictated by Robles Sheppard MD, MD (radiology supervisor). I, RAINA PETER MD have personally reviewed [...] Report dictated by Robles Sheppard MD, MD (radiology supervisor). I, RAINA PETER MD have personally reviewed and interpreted this examination/study. > Interpreting Provider: RAINA PETER MD on 02/28/2023 2:12 PM Jessica Mei MD DIAGNOSTIC IMAGING O RDERABLES * (ABNORMAL) CULTURE URINE (02/27/2023 1:03 PM CDT) Culture Urine 50,000-100,000 CFU/mL Proteus mirabilis(A) ANABELLA 03/01/2023 2:51 AM CDT [facility] MICROBIOLOGY Culture Urine <10,000 CFU/mL urogenital manuel ANABELLA 03/01/2023 2:51 AM CDT [facility] MICROBIOLOGY Urine URINE SPECIMEN OBTAINED BY CLEAN [...] Mei MD LAB - MICROBIOLOGY O RDERABLES [facility] MICROBIOLOGY [address] [place] [address], [facility] [phone] * (ABNORMAL) URINALYSIS REFLEX TO MICROSCOPIC NO CULTURE (02/26/2023 11:37 PM CDT) Color UA Amy(A) Straw, Yellow 02/26/2023 11:58 PM [facility] Clarity UA Cloudy(A) Clear 02/26/2023 11:58 PM CDT [facility] Specific [place] UA 1.017 1.005 - 1.030 02/26/2023 11:58 PM [facility] pH UA 8.0 5.0 - 8.0 pH 02/26/2023 11:58 PM [facility] Protein UA 2+(A) Negative 02/26/2023 11:58 PM [facility] Glucose UA Negative Negative 02/26/2023 11:58 PM CDT [facility] Ketone UA Negative Negative 02/26/2023 11:58 PM T [facility] Bilirubin UA Negative Negative 02/26/2023 11:58 PM CDT [facility] Blood UA 1+(A) Negative 02/26/2023 11:58 PM T [facility] Nitrite UA Positive(A) Negative 02/26/2023 11:58 PM T [facility] Leukocyte Esterase 3+(A) Negative 02/26/2023 11:58 PM CDT [facility] Urobilinogen UA Negative Negative mg/dL 02/26/2023 11:58 PM T [facility] RBC UA 0-2 None Seen, 0-2, 3-5 /HPF 02/26/2023 11:58 PM CDT [facility] WBC UA >100(A) None Seen, 0-5 /HPF 02/26/2023 11:58 PM T [facility] Bacteria UA Trace(A) None /HPF 02/26/2023 11:58 PM CDT [facility] Squamous Epithelial Cells UA 0-2 None Seen, 0-2, 3-5 /HPF 02/26/2023 11:58 PM T [facility] Triple Phosphate Crystals UA Many(A) None /HPF 02/26/2023 11:58 PM CDT [facility] Urine URINE SPECIMEN OBTAINED BY CLEAN CATCH PROCEDURE / Unknown Collection / Unknown 02/26/2023 11:37 PM CDT 02/26/2023 11:44 PM CDT Narrative [facility] - 02/26/2023 11:58 PM CDT Jessica Mei MD LAB - URINALYSIS ORD ERABLES Performing Organization Address City/State/[facility] Co de Phone Number [address] [address], [facility] [phone] * SODIUM URINE RANDOM (02/26/2023 9:58 AM CDT) Sodium Urine 38 Not Established mmol/L 02/26/2023 10:32 AM CDT [facility] Urine URINE SPECIMEN OBTAINED BY CLEAN CATCH PROCEDURE / Unknown Collection / Unknown 02/26/2023 9:58 AM CDT 02/26/2023 10:09 AM CDT Jessica Mei MD LAB - URINE CHEMISTR Y ORDERABLES Performing Organization Address City/[facility]/ZIP Co de Phone Number [address] [address], [facility] [phone] * UREA NITROGEN URINE RANDOM (02/26/2023 9:58 AM CDT) Urea Nitrogen Random Urine 861 Not Established mg/dL 02/26/2023 10:32 AM CDT [facility] Urine URINE SPECIMEN OBTAINED BY CLEAN CATCH PROCEDURE / Unknown Collection / Unknown 02/26/2023 9:58 AM CDT 02/26/2023 10:09 AM CDT Jessica Mei MD LAB - URINE CHEMISTR Y ORDERABLES Performing Organization Address City/[facility]/ZIP Co de Phone Number [address] [address], [facility] [phone] * OSMOLALITY URINE (02/26/2023 9:58 AM CDT) Osmolality Urine 611 50 - 1,200 mOsm/kg 02/26/2023 11:28 AM CDT [facility] Urine URINE SPECIMEN OBTAINED BY CLEAN CATCH PROCEDURE / Unknown Collection / Unknown 02/26/2023 9:58 AM CDT 02/26/2023 10:09 AM CDT Jessica Mei MD LAB - URINE CHEMISTR Y ORDERABLES Performing Organization Address City/[facility]/ZIP Co de Phone Number [address] [address], [facility] [phone] * CREATININE URINE RANDOM (02/26/2023 9:58 AM CDT) Creatinine Urine 76 Not Established mg/dL 02/26/2023 10:32 AM CDT [facility] Urine URINE SPECIMEN OBTAINED BY CLEAN CATCH PROCEDURE / Unknown Collection / Unknown 02/26/2023 9:58 AM CDT 02/26/2023 10:09 AM CDT Jessica Mei MD LAB - URINE CHEMISTR Y ORDERABLES [place] [id number] [place] [address], [facility] [phone] * XR SHOULDER RIGHT 2VW OR MORE (02/26/2023 9:16 AM CDT) Anatomical Region Laterality Modality Upper Extremity Radiographic Velia ging 02/27/2023 7:14 AM CDT Narrative 02/27/2023 9:05 AM CDT PROCEDURE: XR SHOULDER RIGHT 2VW OR MORE, DATE/TIME OF EXAM: 02/26/2023 9:16 AM, LOCATION [facility] INDICATION: M25.511: Pain of both shoulder joints [...] clavicle. Report dictated by Ric Booker MD (radiology supervisor). Portia Peña MD have personally reviewed and interpreted this examination/study. > Interpreting Provider: Portia Gates MD on 02/27/2023 9:05 AM Procedure Note Portia Gates MD - 02/27/2023 PROCEDURE: XR SHOULDER RIGHT 2VW OR MORE, DATE/TIME OF EXAM: 02/26/2023 9:16 AM, LOCATION [facility] INDICATION: M25.511: Pain of both shoulder joints [...] clavicle. Report dictated by Ric Booker MD (radiology supervisor). Portia Peña MD have personally reviewed and [...] fracture. Report dictated by Ric Booker MD (radiology supervisor). I, Portia Gates MD have personally reviewed and interpreted this examination/study. > Interpreting Provider: Portia Gates MD on 02/27/2023 9:09 AM Narrative 02/27/2023 9:09 AM CDT PROCEDURE: XR SHOULDER LEFT 2VW OR MORE, DATE/TIME OF EXAM: 02/26/2023 9:15 AM, LOCATION [facility] INDICATION: M25.511: Pain of both shoulder joints [...] MORE, DATE/TIME OF EXAM: 39:15 AM, LOCATION [facility] INDICATION: M25.511: Pain of both shoulder joints [...] fracture. Report dictated by Ric Booker MD (radiology supervisor). I, Portia Gates MD have personally reviewed and interpreted this examination/study. > Interpreting Provider: Portia Gates MD on 02/27/2023 9:09 AM Jessica Mei MD DIAGNOSTIC IMAGING O RDERABLES * TRANSFUSE RED BLOOD CELL LEUKOREDUCED UNIT(S) (02/24/2023 8:52 PM CDT) Jessica Mei MD NURSING - BLOOD PROD TRANSFUSION * PREPARE (CROSSMATCH) RBC UNIT(S), 1 Units (02/24/2023 6:24 PM CDT) Unit Description AS1 LR PRBC [facility] Unit ABO O [facility] Unit Rh POS [facility] Product Number R02 [facility] Unit Donor # [id number] [facility] Unit Status transfused [facility] Product [facility] [id number] [facility] Blood Type Barcode 5100 [facility] Expiration Date [id number] S BLOOD BANK LAB Blood Bank BLOOD SPECIMEN / Unknown 02/24/2023 4:21 PM CDT Jessica Mei MD LAB - BLOOD BANK ORD ERABLES Performing Organization Address [facility] Co de Phone Number [facility] [address] [place] [address], [facility] [phone] * BLOOD TYPE VERIFICATION (02/24/2023 5:33 PM CDT) ABO Rh O POS 02/24/2023 6:0 0 PM CDT [facility] Blood Bank BLOOD SPECIMEN / Unknown Venipuncture / Unknown 02/24/2023 5:33 PM CDT 02/24/2023 5:39 PM CDT Sarah Ocampo MD LAB - BLOOD BANK ORD ERABLES [facility] [address] [place] [address], [place] [phone] * TYPE + SCREEN PANEL (02/24/2023 3:06 PM CDT) Antibody Screen NEG 5:00 PM CDT [facility] ABO Rh O POS 02/24/2023 5:00 PM CDT [facility] Blood Bank BLOOD SPECIMEN / Unknown 02/24/2023 3:06 PM CDT 02/24/2023 4:21 PM CDT Jessica Mei MD LAB - BLOOD BANK ORD ERABLES Performing Organization Address [facility] Co de Phone Number [facility] [address] [place] [address], [place] [phone] * SYPHILIS ANTIBODY CASCADING REFLEX (02/24/2023 1:26 AM CDT) Treponema pallidum Antibody Non-react del Non-react del 02/24/2023 2:23 AM CDT [facility] Comment: No Laboratory evidence of syphilis infection. Note: Circulating antibodies may be low or undetectable in early infection. If recent exposure is suspected, re-draw sample in 2-4 weeks and repeat testing. Blood BLOOD SPECIMEN / Unknown Lab Venipuncture / Unknown 02/24/2023 1:26 AM CDT 02/24/2023 1:30 AM CDT Eladio Jimenez MD LAB - SEROLOGY ORDER BELEN Performing Organization Address [facility]/ZIP Co de Phone Number [facility] [address] [place] [address], [place] [phone] * CT HEAD WO CONTRAST (02/23/2023 3:52 PM CDT) Anatomical Region Laterality Modality Head Computed Tomogra phy 02/23/2023 3:55 PM CDT Impressions 02/23/2023 4:17 PM CDT IMPRESSION: 1.No acute intracranial hemorrhage, midline shift, or significant mass effect. 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 > Dictated by Chucho Ludwig DO (radiology supervisor). Sangita Peña MD have personally reviewed and interpreted this examination/study. > Interpreting Provider: Sangita Goldman MD on 02/23/2023 4:17 PM Narrative 02/23/2023 4:17 PM CDT PROCEDURE: CT HEAD WO CONTRAST, DATE/TIME OF EXAM: 02/23/2023 3:53 PM, LOCATION [facility] INDICATION: F03.90: Dementia, senile (CMS/HCC) EXAMINATION: Computed [...] DATE/TIME OF EXAM: 02/23/2023 3:53 PM, LOCATION [facility] INDICATION: F03.90: Dementia, senile (CMS/HCC) EXAMINATION: Computed [...] related. > Dictated by Chucho Ludwig DO (radiology supervisor). I, Sangita Goldman MD have personally reviewed and interpretedthis examination/study. > Interpreting Provider: Sangita Goldman MD on 02/23/2023 4:[address] MD [address] ORDERABLES * HIV-1 HIV-2 ANTIBODY + HIV P24 AG PANEL (02/23/2023 12:42 PM CDT) Pathologist [facility] HIV Antigen/Antibod y 1 & 2 Non-reacti ve Non-react del 02/23/2023 2:00 PM CDT [facility] Comment:No Laboratory eviden ce of HIV infection. Blood BLOOD SPECIMEN / Unknown Lab Venipuncture / Unknown 02/23/2023 12:42 PM CDT 02/23/2023 12:51 PM CDT Eladio Jimenez MD LAB - CHEMISTRY ALIE PAYAN [facility] [address] [place] [address], [facility] [phone] * (ABNORMAL) DIFFERENTIAL MANUAL (02/23/2023 1:57 AM CDT) Only the most recent of4 resultswithin the time period is included. Pathologist [facility] WBC (corrected for NRBC) 6.8 10 3/uL 02/23/2023 2:59 AM CDT [facility] Total Cell Count 100 02/24/20 23 2:59 AM [facility] Neutrophils Absolute Manual 3.94 1.60 - 7.00 10 3/uL 02/23/2023 2:59 AM [facility] Comment:(BANDS+SEGS) x WBC = NEUT # (ANC) Lymphocyte Absolute Manual 1.97 1.10 - 3.90 10 3/uL 02/23/2023 2:59 AM CDT [facility] Monocytes Absolute Manual 0.54 0.26 - 1.07 10 3/uL 02/23/2023 2:59 AM CDT [facility] Eosinophils Absolute Manual 0.27 0.00 - 0.47 10 3/uL 02/23/2023 2:59 AM CDT [facility] Neutrophil % Manual 58 35 - 70 % 02/23/2023 2:59 AM [facility] Lymphocyte % Manual 29 20 - 43 % 02/23/2023 2:59 AM [facility] Monocytes % Manual 8 5 - 13 % 02/23/2023 2:59 AM T [facility] Eosinophils % Manual 4 0 - 6 % 02/23/2023 2:59 AM CDT [facility] Atypical Lymphocyte % Manual 1(H) 0 % 02/23/2023 2:59 AM T [facility] Platelet Estimate Decreased (A) Adequate 02/23/2023 2:59 AM CDT [facility] Anisocytosis Occasiona l(A) None 02/23/2023 2:59 AM CDT [facility] Ovalocytes Occasiona l(A) None 02/23/2023 2:59 AM T [facility] Blood BLOOD SPECIMEN / Unknown Lab Venipuncture / Unknown 02/23/2023 1:57 AM CDT 02/23/2023 2:12 AM CDT Mirza Sanchez MD LAB - HEMATOLOGY ORD ERABLES [facility] [address] [place] [address], [facility] [phone] * (ABNORMAL) CBC W AUTO DIFFERENTIAL (02/23/2023 1:57 AM CDT) Only the most recent of5 resultswithin the time period is included. WBC 6.8 3.5 - 10.5 10 3/uL 02/23/2023 2:24 AM [facility] RBC 3.05(L) 4.30 - 5.70 10 6/uL 02/23/2023 2:24 AM [facility] Hemoglobin 8.1(L) 12.0 - 17.6 g/dL 02/23/2023 2:24 AM [facility] Hematocrit 24.9(L) 35.2 - 51.7 % 02/23/2023 2:24 AM [facility] MCV 81.6 80.7 - 98.3 fL 02/23/2023 2:24 AM [facility] MCH 26.6(L) 26.7 - 34.0 pg 02/23/2023 2:24 AM [facility] MCHC 32.5 30.8 - 35.9 g/dL 02/23/2023 2:24 AM [facility] RDW-SD 46.2 36.0 - 50.0 fL 02/23/2023 2:24 AM [facility] RDW-CV 15.5(H) 11.2 - 14.8 % 02/23/2023 2:24 AM [facility] Platelet Count 108(L) 150 - 400 10 3/uL 02/23/2023 2:24 AM [facility] MPV 11.5 9.4 - 12.9 fL 02/23/2023 2:24 AM [facility] Immature Platelet Fraction 4.3 1.1 - 6.2 % 02/23/2023 2:24 AM [facility] nRBC Absolute 0.00 0 10 3/uL 02/23/2023 2:24 AM [facility] nRBC Auto 0.0 0 /100 WBC 02/23/2023 2:24 AM [facility] Blood BLOOD SPECIMEN / Unknown Lab Venipuncture / Unknown 02/23/2023 1:57 AM CDT 02/23/2023 2:12 AM CDT Mirza Sanchez MD LAB - HEMATOLOGY ORD ERABLES [facility] [address] [place] [phone], [facility] [phone] * (ABNORMAL) COMPREHENSIVE METABOLIC PANEL (02/23/2023 1:57 AM CDT) Only the most recent of6 resultswithin the time period is included. BUN 25 7 - 26 mg/dL 02/23/2023 2:48 AM [facility] Creatinine 1.16 0.71 - 1.16 mg/dL 02/23/2023 2:48 AM [facility] Sodium 134(L) 136 - 145 mmol/L 02/23/2023 2:48 AM [facility] Potassium 4.0 3.5 - 4.5 mmol/L 02/23/2023 2:48 AM [facility] Chloride 100 98 - 107 mmol/L 02/23/2023 2:48 AM [facility] CO2 24 22 - 29 mmol/L 02/23/2023 2:48 AM [facility] Glucose 100 70 - 115 mg/dL 02/23/2023 2:48 AM [facility] Calcium 8.6 8.4 - 10.2 mg/dL 02/23/2023 2:48 AM [facility] Protein Total 6.0 6.0 - 8.3 g/dL 02/23/2023 2:48 AM [facility] Albumin 2.6(L) 3.4 - 5.0 g/dL 02/23/2023 2:48 AM [facility] Bilirubin Total 0.7 0.2 - 1.2 mg/dL 02/23/2023 2:48 AM [facility] Alkaline Phosphatase 51 40 - 150 U/L 02/23/2023 2:48 AM [facility] ALT <5(L) 5 - 55 U/L 02/23/2023 2:48 AM [facility] AST 21 5 - 34 U/L 02/23/2023 2:48 AM [facility] Anion Gap 14 8 - 18 02/23/2023 2:48 AM [facility] BUN/Creatinine Ratio 22 7 - 23 02/23/2023 2:48 AM [facility] Osmolality Calculated 282 270 - 300 mOsm/kg 02/23/2023 2:48 AM [facility] Albumin/Globulin Ratio 0.8(L) 1.1 - 2.3 02/23/2023 2:48 AM [facility] eGFR by CKD-EPI 62(L) >=90 mL/min/1.7 3 m2 02/23/2023 2:48 AM [facility] Blood BLOOD SPECIMEN / Unknown Lab Venipuncture / Unknown 02/23/2023 1:57 AM CDT 02/23/2023 2:12 AM T Mirza Sanchez MD LAB - CHEMISTRY ALIE PAYAN [place] Organization Address City/State/ZIP Co de Phone Number [facility] [address] [place] [address], [facility] [phone] * PHOSPHORUS BLOOD (02/23/2023 1:57 AM CDT) Only the most recent of4 resultswithin the time period is included. Phosphorus 3.0 2.8 - 5.1 mg/dL 02/23/2023 2:48 AM CDT [facility] Blood BLOOD SPECIMEN / Unknown Lab Venipuncture / Unknown 02/23/2023 1:57 AM CDT 02/23/2023 2:12 AM CDT Mirza Sanchez MD LAB - CHEMISTRY ALIE PAYAN Performing Organization Address City/[facility]/ZIP Co de Phone Number [address] [address], [facility] [phone] * (ABNORMAL) CALCIUM IONIZED WHOLE BLOOD (02/21/2023 12:59 AM CDT) Pathologist [facility] Calcium Ionized 1.09 mmol/L 02/21/2023 1:36 AM CDT [facility] pH 7.53(H) 7.35 - 7.45 pH 02/21/2023 1:36 AM CDT [facility] Ionized Calcium pH Adjusted 1.15(L) 1.19 - 1.34 mmol/L 02/21/2023 1:36 AM CDT [facility] Blood BLOOD SPECIMEN / Unknown Lab Venipuncture / Unknown 02/21/2023 12:59 AM CDT 02/21/2023 1:32 AM CDT Miguel Angel Hdez MD LAB - CHEMISTRY ALIE PAYAN Performing Organization Address City/[facility]/ZIP Co de Phone Number [address] [address], [facility] [phone] * TSH REFLEX FREE T4 (02/21/2023 12:59 AM CDT) TSH 0.586 0.350 - 4.940 uIU/mL 02/21/2023 2:33 AM CDT [facility] Blood BLOOD SPECIMEN / Unknown Lab Venipuncture / Unknown 02/21/2023 12:59 AM CDT 02/21/2023 1:34 AM CDT Miguel Angel Hdez MD LAB - CHEMISTRY ALIE PAYAN [address] [address], [facility] [phone] * (ABNORMAL) VITAMIN D 25-HYDROXY (02/21/2023 12:59 AM CDT) Vitamin D, 25 Hydroxy 25.0(L) 30.0 - 80.0 ng/mL 02/21/2023 2:33 AM CDT [facility] Comment: The recommendations for 25-Hydroxy Vitamin [...] - CHEMISTRY ALIE PAYAN Performing Organization Address City/[facility]/ZIP Co de Phone Number [address] [address], [facility] [phone] * FOLATE (02/21/2023 12:59 AM CDT) Folate 9.1 7.0 - 31.4 ng/mL 02/21/2023 2:33 AM CDT [facility] Blood BLOOD SPECIMEN / Unknown Lab Venipuncture / Unknown 02/21/2023 12:59 AM CDT 02/21/2023 1:34 AM CDT Miguel Angel Hdez MD LAB - CHEMISTRY ALIE PAYAN [address] [address], [place] [phone] * VITAMIN B12 (02/21/2023 12:59 AM CDT) Vitamin B12 346 213 - 816 pg/mL 02/21/2023 2:33 AM CDT [facility] Blood BLOOD SPECIMEN / Unknown Lab Venipuncture / Unknown 02/21/2023 12:59 AM CDT 02/21/2023 1:34 AM CDT Miguel Angel Hdez MD LAB - CHEMISTRY ALIE PAYAN [facility] [address] [place] [address], [place] [phone] * (ABNORMAL) IRON + TRANSFERRIN PANEL (02/21/2023 12:59 AM CDT) Iron 21(L) 50 - 175 ug/dL 02/21/2023 2:01 AM CDT [facility] Transferrin 128(L) 174 - 382 mg/dL 02/21/2023 2:01 AM CDT [facility] Transferrin Saturation % 13(L) 16 - 50 % 02/21/2023 2:01 AM CDT [facility] TIBC Calculated 160(L) 240 - 450 ug/dL 02/21/2023 2:01 AM CDT [facility] Blood BLOOD SPECIMEN / Unknown Lab Venipuncture / Unknown 02/21/2023 12:59 AM CDT 02/21/2023 1:32 AM CDT Miguel Angel Hdez MD LAB - CHEMISTRY ALIE PAYAN [facility] [address] [place] [phone], [place] [phone] * FERRITIN (02/21/2023 12:59 AM CDT) Ferritin 135 22 - 275 ng/mL 02/21/2023 2:20 AM CDT [facility] Blood BLOOD SPECIMEN / Unknown Lab Venipuncture / Unknown 02/21/2023 12:59 AM CDT 02/21/2023 1:32 AM CDT Miguel Angel Hdez MD LAB - CHEMISTRY ORDMaverick PAYAN Performing Organization Address [facility] Co de Phone Number [facility] [address] [place] [phone], [facility] [phone] * (ABNORMAL) POTASSIUM BLOOD (02/20/2023 10:01 AM CDT) Potassium 3.0(L) 3.5 - 4.5 mmol/L 02/20/2023 10:44 AM CDT [facility] Blood BLOOD SPECIMEN / Unknown Venipuncture / Unknown 02/20/2023 10:01 AM CDT 02/20/2023 10:13 AM CDT Heath Armstrong MD LAB - CHEMISTRY [place]IE [place] Performing Organization Address [facility] Co de Phone Number [address] [address], [facility] [phone] * FL RODNEY SURGERY (02/20/2023 4:54 AM CDT) Narrative [facility] - 02/20/2023 4:55 AM CDT Fluoroscopy was used for this exam in the OR. Please see the Operative report. Raj Rachel MD FLUOROSCOPY ORDERABL ES Performing Organization Address [facility] Co de Phone Number [facility] * ETT LINE PERFORMABLE (02/20/2023 4:02 AM CDT) Narrative Sarbjit Colon DO - 02/20/2023 4:02 AM CDT Sarbjit Colon DO 02/20/2023 4:03 AM Endotracheal Tube Placement: Patient Location: OR. Intubation Event Date/Time: 02/20/2023 3:41 AM Procedure: intubation ([id number]). Procedure Section: Sedation: under general anesthesia. Indications [...] angulation. Report dictated by Chele Thompson MD (radiology supervisor). I, Marco Antonio Flaherty MD have personally reviewed and interpreted this examination/study. > Interpreting Provider: Marco Antonio Flaherty MD on 02/20/2023 7:40 AM Narrative 02/20/2023 7:40 AM CDT PROCEDURE: CT PELVIS WO CONTRAST DATE/TIME OF EXAM: 02/19/2023 10:56 PM CLINICAL INFORMATION: None relevant/not provided if blank. Indication: S72.001A: Closed fracture of neck of right femur, initial encounter ([facility]) Additional History: COMPARISON: right femur radiograph dated [...] of neck of right femur, initial encounter ([facility]) Additional History: COMPARISON: right femur radiograph dated [...] angulation. Report dictated by Chele Thompson MD (radiology supervisor). I, Marco Antonio Flaherty MD have personally [...] (Bezet) 512 ms [facility] MUSE Calculated R [place] -54 degrees [facility] MUSE Calculated T [place] 34 degrees [facility] MUSE Interpretation EKG WIDE QRS RHYTHM LEFT AXIS DEVIATION RIGHT BUNDLE BRANCH BLOCK MINIMAL VOLTAGE CRITERIA FOR LVH, MAY BE NORMAL VARIANT ( R in aVL ) INFERIOR INFARCT , AGE UNDETERMINED ANTERIOR INFARCT , AGE UNDETERMINED ABNORMAL ECG NO PREVIOUS ECGS AVAILABLE Confirmed by Kassandra Hicks ([id number]) on 02/27/2023 1:49:28 AM H MUSE 02/19/2023 9:31 PM CDT 02/27/2023 1:49 AM CDT Mirza Sanchez MD ECG ORDERABLES [facility] * XR CHEST 1VW PORTABLE (02/19/2023 7:24 PM CDT) Anatomical Region Laterality Modality Chest Radiographic Velia ging 02/19/2023 8:18 PM CDT Narrative 02/20/2023 11:24 PM CDT PROCEDURE: XR CHEST 1VW PORTABLE, DATE/TIME OF EXAM: 02/19/2023 7:24 PM, LOCATION [facility] INDICATION: W19.XXXA: Fall, initial encounter Ordering Provider Reason For Exam: fall COMPARISON: None. FINDINGS/IMPRESSION: Lungs are clear. There is no pleural effusion pleural effusion. No pneumothorax is identified. The cardiomediastinal silhouette is unremarkable, other than atherosclerosis of the thoracic aorta. The visible bony thorax is intact. Report dictated by Andrey Dolan MD (radiology supervisor). I, Jose Roberto Wiggins MD have personally reviewed and interpreted this examination/study. > Interpreting Provider: Jose Roberto Wiggins MD on 02/20/2023 11:24 PM Procedure Note Jose Roberto Wiggins MD - 02/20/2023 PROCEDURE: XR CHEST 1VW PORTABLE, DATE/TIME OF EXAM: 02/19/2023 7:24PM, LOCATION [facility] INDICATION: W19.XXXA: Fall, initial encounter Ordering Provider Reason For Exam: fall COMPARISON: None. FINDINGS/IMPRESSION: Lungs are clear. There is no pleural effusion pleural effusion. No pneumothorax is identified. The cardiomediastinal silhouette is unremarkable, other than atherosclerosis of the thoracic aorta. The visible bony thorax is intact. Report dictated by Andrey Dolan MD (radiology supervisor). Jose Roberto Peña MD have personally reviewed [...] femoral neck. This study was dictated by radiology supervisor Andrey Dolan MD and reviewed and edited [...] femoral neck. This study was dictated by radiology supervisor Andrey Dolan MD and reviewed and edited [...] femoral neck. This study was dictated by radiology supervisor Andrey Dolan MD and reviewed and edited [...] femoral neck. This study was dictated by radiology supervisor Andrey Dolan MD and reviewed and edited [...] POCT neg Ketones UA POCT neg Specific [place] UA 1.025 Blood Urine POCT neg pH UA 6.0 Protein UA 100 Urobilinogen UA 0.2 Nitrite UA neg WBC UA neg Urine URINE / Unknown 03/20/2021 9 :07 AM CDT Pallavi Hernandez APRN-ELEVATOR OPERATOR LAB - POINT O F CARE ORDERABLES * CO MSR PVR U&/BLADD CAPCTY US NON (02/06/2021 10:05 AM CDT) Narrative Matilde Schilling - 02/06/2021 10:05 AM CDT Matilde Schilling 02/06/2021 3:59 PM Bladder scan completed. 108ml post void residual. Pallavi Hernandez FINANCIAL INSTITUTION BRANCH MANAGER-ELEVATOR OPERATOR PROCEDURE/MIN OR SURGICAL ORDERABLES Care Teams Jukebox Operator Relationship Specialty Start Date End Date Steven Queen DO [address] [facility] [address] [place] [id number] PCP - General Internal Medicine 06/14/22 [place] [id number] [facility] [address] [address] Orthopedic Surgery 06/14/22
--- OUTSIDE RECORDS SUMMARY | 2025-01-06 16:01 | XMS_ITS | Clinical Summary ---
Author Organization [facility] Address [address] [place] [address] Care Team Providers Care Travel Pta Name Role Phone Ebony WILLARD MD, Devante Unavailable [phone] Steven Queen DO Primary Care Provider [phone] Source Comments [facility],non-owned Affiliates and Associated Physician Practices is amultiple site organization consisting of ambulatory clinics and hospital sitesin [place], [place], [place] and [place]. This disclosure is being madepursuant to the Care Everywhere program and may not contain all information available regarding this patient. Last updated 18.[facility] Allergies Active Allergy Reactions Criticality Noted Date Comments [place] Oil Nausea and/or Vomiting,Other High 02/18/2019 Reaction: [...] medical care, and heating? Somewhat hard 02/20/2023 [facility] [place] of Occupat ional Health - Occupational Stress [...] place to sleep or slept in a chcf (including now)? No 02/20/2023 Sex and Gender [...] PCV) 02/10/1959 ZOSTER VACCINE (1 of 2) 02[birth year]10/1959 Respiratory Syncytial Virus (RSV) Vaccine Pt: or [...] complete this topic MENINGOCOCCAL (Group B) VACCINE SHARED DECISION-MAKING Aged Out No longer eligible based on patient's age to complete this topic MENINGOCOCCAL GROUPS A/C/Y/W VACCINE Aged Out No longer eligible based on patient's age to complete this topic Medical Devices Implanted Type Area Visual Basic Developer Device Identifier Shelf Expiration Date Model / Serial / Lot Lag Screw 100mm Implanted:Qty: 1 on 02/20/[address] [facility] 280.301 / / 280.301 Screw 4.5mm 8mm 46mm 3.5mm Slf-Tap Lg Implanted:Qty: 1 on 02/20/[address] [facility] [facility] 214.846 / / Screw 4.5mm 8mm 40mm 3.5mm Slf-Tap Lg Implanted:Qty: 1 on 02/20/[address] [facility] [employer] [facility] 214.840 / / Screw 36mm Hip Cndrl Comp Dhs Dcs Ss Implanted:Qty: 1 on 02/20/[address] [facility] [employer] [facility] 280.990 / / Plate 2 Hl Lopro Comp Hip Cndrl 46x19 Implanted:Qty: 1 on 02/20/[address] [facility] [employer] [facility] 281.021S / / Explanted Type Area Visual Basic Developer Device Identifier Shelf Expiration Date Model / Serial / Lot Screw 12.7mm 8mm 2.7mm 95mm Hip Cndrl Explanted:Qty: 1 on 02/20/2023 at [facility] 280.295S / / Advance Directives * Full Code (Latest Code Status on File) Date Activated Date Inactivated Comments 02/19/2023 9:26 PM 03/21/2023 3:00 PM Care Teams Travel Pta Relationship Specialty Start Date End Date Steven Queen DO [address] [place] [address] PCP - General Internal Medicine 06/14/22 [place] [id number] [address] Orthopedic Surgery 06/14/22
--- OUTSIDE RECORDS SUMMARY | 2025-01-06 16:01 | XMS_ITS | Referral Summary ---
Author Organization [facility] Address [address] [place] [address] Care Team Providers Care Desk Clerks Supervisor Name Role Phone Ebony WILLARD MD, Devante Unavailable Steven Queen DO Primary Care Provider [phone] Source Comments [facility] [employer],non-owned Affiliates and Associated Physician Practices is amultiple site organization consisting of ambulatory clinics and hospital sitesin [place], [place], [place] and [place]. This disclosure is being madepursuant to the Care Everywhere program and may not contain all information available regarding this patient. Last updated 18.[facility] [employer] Allergies Active Allergy Reactions Criticality Noted Date Comments [place] Oil Nausea and/or Vomiting,Other High 02/18/2019 Reaction: [...] medical care, and heating? Somewhat hard 02/20/2023 [facility] [place] of Occupat ional Health - Occupational Stress [...] on file Medical Devices Implanted Type Area Home School Teacher Device Identifier Shelf Expiration Date Model / Serial / Lot Lag Screw 100mm Implanted:Qty: 1 on 02/20/2023 at [facility] 280.301 / / 280.301 Screw 4.5mm 8mm 46mm 3.5mm Slf-Tap Lg Implanted:Qty: 1 on 02/20/2023 at [facility] 214.846 / / Screw 4.5mm 8mm 40mm 3.5mm Slf-Tap Lg Implanted:Qty: 1 on 02/20/2023 at [facility] 214.840 / / Screw 36mm Hip Cndrl Comp Dhs Dcs Ss Implanted:Qty: 1 on 02/20/2023 at [facility] 280.990 / / Plate 2 Hl Lopro Comp Hip Cndrl 46x19 Implanted:Qty: 1 on 02/20/2023 at [facility] 281.021S / / Explanted Type Area Home School Teacher Device Identifier Shelf Expiration Date Model / Serial / Lot Screw 12.7mm 8mm 2.7mm 95mm Hip Cndrl Explanted:Qty: 1 on 02/20/2023 at [facility] 280.295S / / Advance Directives * Full Code (Latest Code Status on File) Date Activated Date Inactivated Comments 02/19/2023 9:26 PM 03/21/2023 3:00 PM Care Teams Desk Clerks Supervisor Relationship Specialty Start Date End Date Steven Queen DO [address] [place] [id number] PCP - General Internal Medicine 06/14/22 [place] [id number] [place] [address] Orthopedic Surgery 06/14/22
[2025-01-06 17:01] LABS: Lactic Acid Reflex 1.1 mmol/L (0.7-2.0)
--- NOTE | 2025-01-06 17:38 | ADMGEN ---
This patient, Florencio Bird, was admitted to [facility] Surg Room 325-01. Patient/family oriented to hospital policies and general routines including ID bracelet, bed and alarms, visiting hours, pain management, procedures, bathroom and other care routines, personal items, smoking policy, room service/diet, and visiting hours. Information on how to activate the Rapid Response Team has been discussed. Patient/Family are encouraged to report perceived risks to care and to ask questions if they do not understand what they are told or what they should do.
[2025-01-06] MEDS: SODIUM CHLORIDE 0.9% IV 1,000 ML 125 ML IV CONT (18:09)
--- NOTE | 2025-01-06 23:41 | PM.IMHP ---
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 Patient is a poor historian and most of the history of presenting illness was obtained from the medical record. Patient was found to have abdominal pain at his nursing facility. He has had history of ESBL urinary tract infections and was sent here for further evaluation. Workup in the hospital included an abdominal x-ray which showed normal bowel gas pattern. CT of the abdomen/ pelvis shown stool distends the rectum. Initial labs showed a white blood cell count of 16.7, hemoglobin 9.7, sodium 127, chloride 95, bicarb 18, anion gap 14, lactic acid was normal at 1.1. A UA was obtained which showed turbid urine appearance, 2+ urine protein, trace ketone, 3+ leukocyte, 11-20 urine WBC, moderate amorphous sediment, 1+ urine bacteria. Urine culture was obtained and pending. Patient was given 2 L of normal saline, morphine, Zofran, started on IV fluids and given a dose of Rocephin while in the ED. Review of Systems Review of Systems: All systems reviewed & are unremarkable except as noted in HPI and below PMFSH Past Medical History Medical History Depression with anxiety History of infection due to ESBL Escherichia coli Urinary retention due to benign prostatic hyperplasia Venous stasis dermatitis of both lower extremities Lung nodule Collagenous colitis Chronic indwelling Duron catheter Diastolic dysfunction Echo 01/2022: EF 60 65% Chronic obstructive pulmonary disease Hypothyroidism Benign prostatic hyperplasia Arthritis Degenerative disc disease Renal cell carcinoma of right kidney Status post right nephrectomy. Gastroesophageal reflux disease Silicosis Obstructive sleep apnea Chronic anemia Chronic kidney disease, stage 3 Baseline creatinine ranges between 1.30 and 1.40. Degenerative arthritis of knee, bilateral Chronic lymphocytic leukemia Cognitive impairment Essential hypertension Parkinson disease Primary osteoarthritis of both knees Surgical History Surgical History Status post open reduction with internal fixation of fracture Right femoral neck fracture History of arthroscopy of right knee History of cholecystectomy History of appendectomy History of repair of left rotator cuff History of cataract extraction History of right nephrectomy (2003) History of back surgery Family History Family History Father Family history of liver disease Family history of lung cancer Patient's father is Family history of primary malignant neoplasm of liver Mother Family history of heart disease in male family member before age 55 Patient's mother is Family history of coronary artery disease Acute myocardial infarction Sibling Family history of lung cancer Family history of malignant neoplasm of bone Patient's sister is Patient's brother is Malignant neoplasm of prostate Grandparent Family history of arthritis Other Family history of malignant neoplasm of kidney Social History Social History Social History: He is . The patient resides at [facility]. His son lives in the local area. The patient is retired from [employer]. No alcohol, tobacco, or illicit substance. He uses wheelchair for mobility and can stand to pivot. 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 Gender identity (if verbalized by the patient): Male Spiritual care concerns: No Meds Home Medications and Allergies Home Medications ?Medication ?Instructions ?Recorded ?Confirmed ?Type levothyroxine 100 mcg tablet 100 mcg PO DAILY #90 tabs 10/17/22 01/06/25 Rx alendronate 70 mg tablet 70 mg PO WEEKLY 06/03/23 01/06/25 History bisacodyl 10 mg rectal suppository 10 mg RECTAL DAILY PRN Constipation 06/03/23 01/06/25 History (Dulcolax (bisacodyl)) tamsulosin 0.4 mg capsule 0.8 mg (2 x 0.4 mg) PO DAILY #180 06/27/23 01/06/25 Rx caps albuterol sulfate 90 mcg/actuation 1 puff inhalation Q4H PRN 08/18/23 01/06/25 Rx aerosol inhaler shortness of breath or wheezing #8.5 grams duloxetine 60 mg capsule,delayed 60 mg PO DAILY #30 caps 08/18/23 01/06/25 Rx release lidocaine 5 % topical patch 1 patch topical DAILY #15 ea 08/30/23 01/06/25 Rx (Lidoderm) carvedilol 3.125 mg tablet 3.125 mg PO BID 11/22/23 01/06/25 History furosemide 20 mg tablet 40 mg PO DAILY 11/22/23 01/06/25 History gabapentin 300 mg capsule 300 mg PO BID 11/22/23 01/06/25 History magnesium hydroxide 400 mg/5 mL 30 ml PO HS PRN Constipation 11/22/23 01/06/25 History oral suspension (Milk of Magnesia) omeprazole 20 mg capsule,delayed 20 mg PO DAILY 11/22/23 01/06/25 History release atorvastatin 80 mg tablet 80 mg PO HS 12/04/23 01/06/25 History carbidopa 25 mg-levodopa 100 mg 3 tablet PO TID #240 tabs 04/13/24 01/06/25 Rx tablet (Sinemet) ondansetron 8 mg disintegrating 8 mg PO Q8H 04/13/24 01/06/25 History tablet allopurinol 100 mg tablet 100 mg PO DAILY 11/15/24 01/06/25 History amlodipine 5 mg tablet 2.5 mg PO QAM 11/15/24 01/06/25 History ascorbic acid (vitamin C) 500 mg 500 mg PO BID 11/15/24 01/06/25 History capsule cholecalciferol (vitamin D3) 125 5,000 unit PO DAILY 11/15/24 01/06/25 History mcg (5,000 unit) tablet (Vitamin D3) ferrous sulfate 325 mg (65 mg 325 mg PO TID 11/15/24 01/06/25 History iron) tablet,delayed release folic acid 1 mg tablet 1 mg PO DAILY 11/15/24 01/06/25 History loratadine 10 mg tablet (Allergy 10 mg PO DAILY 11/15/24 01/06/25 History Relief (loratadine)) methotrexate sodium 2.5 mg tablet 15 mg PO DAILY 11/15/24 01/06/25 History potassium chloride 10 mEq 10 meq PO DAILY 11/15/24 01/06/25 History tablet,extended release spironolactone 25 mg tablet 25 mg PO DAILY 11/15/24 01/06/25 History polyethylene glycol 3350 17 gram 17 g PO QAM #10 ea 11/20/24 01/06/25 Rx oral powder packet (Miralax) acetaminophen 325 mg tablet 650 mg PO Q4H PRN fever or pain 12/14/24 01/06/25 History cyanocobalamin (vitamin B-12) 1,000 mcg PO DAILY 12/14/24 01/06/25 History 1,000 mcg capsule dextran 70-hypromellose 0.1 %-0.3 1 drp EACH EYE BID PRN dry eye(s) 12/14/24 01/06/25 History % eye drops (Artificial Tears (dextran 70-hypromellose)) dextromethorphan-guaifenesin 10 10 ml PO Q6H PRN cough 12/14/24 01/06/25 History mg-100 mg/5 mL oral liquid (Tussin DM) diclofenac sodium 1 % topical gel 4 g topical BID 12/14/24 01/06/25 History (Arthritis Pain (diclofenac)) finasteride 5 mg tablet 5 mg PO DAILY 12/14/24 01/06/25 History fluticasone 250 mcg-salmeterol 50 1 inh inhalation Q12H 12/14/24 01/06/25 History mcg/dose blistr powdr for inhalation (Advair Diskus) ipratropium 0.5 mg-albuterol 3 mg 3 ml inhalation TID 12/14/24 01/06/25 History (2.5 mg base)/3 mL nebulization soln magnesium citrate (Citroma oral 296 ml PO DAILY PRN constipation 12/14/24 01/06/25 History solution) sennosides 8.6 mg-docusate sodium 2 tab-cap PO BID 12/14/24 01/06/25 History 50 mg tablet (2-in-1 Laxative) sodium phosphates 19 gram-7 118 ml RECTAL DAILY PRN 12/14/24 01/06/25 History gram/118 mL enema constipation guaifenesin 600 mg tablet, 600 mg PO Q12HR #30 tabs 12/18/24 01/06/25 Rx extended release 12 hr (Mucus Relief ER) hydrocodone 5 mg-acetaminophen 325 1 tablet PO Q8H PRN Pain (Scale 12/18/24 01/06/25 Rx mg tablet Score 4-6) #14 tabs lactulose 10 gram/15 mL oral 30 ml PO DAILY PRN Constipation 12/18/24 01/06/25 Rx solution (Enulose) #237 mL Allergies Allergy/AdvReac Type Severity Reaction Status Date / Time azithromycin Allergy Unknown Unknown Verified 01/06/25 12:40 neomycin Allergy Unknown rash Verified 01/06/25 12:40 Sulfa (Sulfonamide Allergy Unknown Rash Verified 01/06/25 12:40 Antibiotics) castor oil AdvReac Intermediate Nausea and Verified 01/06/25 12:40 Vomiting erythromycin base AdvReac Intermediate SHAKING, Verified 01/06/25 12:40 HEADACHE Vital Signs Vital Signs - 24 hr 01/06/25 12:28 01/06/25 12:57 01/06/25 13:23 Temperature 97.6 F Pulse Rate 85 80 79 Respiratory Rate 20 18 15 Blood Pressure 92/69 L 86/62 L 98/60 L Pulse Oximetry 96 97 97 Oxygen Delivery Room Air 01/06/25 15:07 01/06/25 15:24 01/06/25 15:33 Temperature Pulse Rate Respiratory Rate Blood Pressure 103/56 L 110/78 99/60 L Pulse Oximetry Oxygen Delivery 01/06/25 16:42 01/06/25 18:00 01/06/25 20:00 Temperature 97.7 F Pulse Rate 67 Respiratory Rate 18 Blood Pressure 112/65 Pulse Oximetry 100 100 Oxygen Delivery Room Air Room Air 01/06/25 20:45 Temperature 97.6 F Pulse Rate 66 Respiratory Rate 18 Blood Pressure 115/66 Pulse Oximetry 96 Oxygen Delivery Exam Narrative: General: In no acute distress, well nourished Head: atraumatic, no encephalopathy Eyes: PERRLA, sclera clear ENT: moist mucous membranes, nasal passages clear Neck: supple, no JVD, no adenopathy, trachea midline Cardiac: Normal S1 and S2. No murmur, gallops or friction rubs, peripheral pulses intact. Respiratory: Crackles bilaterally, no adventitious lung sounds, currently on room air Gastrointestinal: soft, non-distended, non-tender, normoactive bowel sounds. : voiding without difficulty. Extremities: moves all extremities well, no edema Skin: clean, dry, intact. No wounds or lesions. Neuro: Alert to voice, follows commands, cranial nerves intact, no neuro deficits. Psych: normal mood, normal affect, interactive H&P: Results Labs Labs: Short CBC 01/06/25 Range/Units 13:17 WBC 16.7 H (4.5-10.0) K/mm3 Hgb 9.7 L (14.0-18.0) g/dL Hct 29.7 L (42.0-52.0) % Plt Count 240 (150-375) k/mm3 BMP 01/06/25 13:17 Sodium 127 L Potassium 3.7 Chloride 95 L Carbon Dioxide 18 L BUN 24 H Creatinine 1.16 Glucose 131 H Calcium 8.3 L Liver Function 01/06/25 Range/Units 13:17 Total Bilirubin 0.8 (0.2-1.3) mg/dL AST 17 (17-59) U/L ALT 7 (6-50) U/L Alkaline Phosphatase 85 (38-126) U/L Albumin 3.2 L (3.5-5.1) g/dL Urine 01/06/25 Range/Units 13:17 Urine Color Dark yellow (Yellow) Urine Appearance Turbid H (Clear) Urine pH 8.5 (5.0-9.0) Ur Specific [place] 1.022 (1.001-1.035) Urine Protein 2+ H (Negative) mg/dL Urine Glucose (UA) Negative (Negative) mg/dL Imaging Abdominal x-ray: Radiologist's impression: EXAMINATION: XR abdomen obstructive series DATE: 01/06/2025 14:02 INDICATION: Abdominal obstruction. TECHNIQUE: Upright and supine views of the abdomen on 3 radiographs were obtained. COMPARISON: Abdomen radiographs 12/16/24, CT abdomen and pelvis 12/13/2024 FINDINGS: There are no dilated loops of bowel. There is a small volume of stool in the colon. No free intraperitoneal gas. There are surgical clips in right abdomen. There is internal fixation of right femur. IMPRESSION: 1. Normal bowel gas pattern. Reviewed, dictated and finalized at location B. abdomen pelvis CT: Radiologist's impression: EXAMINATION: CT abdomen pelvis w con DATE: 01/06/2025 14:33 INDICATION: Abdominal pain. TECHNIQUE: Computed tomography (CT) of the abdomen and pelvis was performed with 100 mL Omnipaque 350 intravenous contrast. Automated exposure control and iterative reconstruction technique were employed. The dose-length product was 802.98 mGy-cm. COMPARISON: CT abdomen and pelvis 12/13/2024 FINDINGS: The visualized portions of the lung bases demonstrate mild atelectasis. A calcified right lung nodule and calcified right hilar lymph nodes are consistent with old granulomatous disease. There is a trace right pleural effusion. The heart size is normal. There are coronary artery calcifications. No pericardial effusion. The liver and spleen are normal. There are changes of cholecystectomy. The pancreas and adrenal glands are normal. There are changes of right nephrectomy. There are cysts in left kidney measuring up to 2.0 cm. The bladder is decompressed by a Duron catheter. Stool distends the rectum. There is diverticulosis of the colon without evidence of diverticulitis. The appendix is not visualized. There are no pathologically enlarged lymph nodes. There is no free intraperitoneal fluid. There is a healed fracture of proximal right femur with internal fixation. There is moderate lumbar spondylosis. IMPRESSION: 1. Stool distends the rectum. Reviewed, dictated and finalized at location B. Assessment and Plan Assessment and plan (1) Acute UTI: Code(s): N39.0 - Urinary tract infection, site not specified Status: Acute Assessment and Plan: History of renal carcinoma s/p right nephrectomy and prostate cancer UA showing turbid urine appearance, 2+ urine protein, trace ketone, 3+ leukocytes, 11-20 urine WBC, 1+ bacteria urine culture obtained and pending patient has history of ESBL in the urine he was given a dose of Rocephin in the ED however we will change this over to meropenem (2) History of infection due to ESBL Escherichia coli: Code(s): Z86.19 - Personal history of other infectious and parasitic diseases Status: Acute Assessment and Plan: see above plan of care (3) Essential hypertension: Code(s): I10 - Essential (primary) hypertension Status: Acute Assessment and Plan: blood pressure ranging 110/78 to 115/66 continue amlodipine (4) Dyslipidemia: Code(s): E78.5 - Hyperlipidemia, unspecified Status: Acute Assessment and Plan: continue atorvastatin (5) Hypothyroidism: Code(s): E03.9 - Hypothyroidism, unspecified Status: Acute Assessment and Plan: continue Synthroid (6) Gastroesophageal reflux disease: Code(s): K21.9 - Gastro-esophageal reflux disease without esophagitis Status: Acute Assessment and Plan: start Protonix Quality VTE Prophylaxis VTE prophylaxis: mechanical ordered Hospitalist [facility] Advance Care Plan I have confirmed that the patient's Advanced Care Plan is present, code status is documented, or surrogate decision maker is listed in patient medical record.: Yes Medication Reconciliation I have utilized all available resources to obtain, update and review the patients current medications (includes all prescriptions, OTC, herbals, cannabis, and nutritional supplements).: Yes
[2025-01-07] VITALS (12 sets, daily range): BP systolic 104–112; BP diastolic 55–62; PULSE 60–81; RESP 16–18; TEMP 35.8–36.9; O2SAT 96–99
[2025-01-07] MEDS: MEROPENEM 1 GM/NS 100 ML 1 GM/100 ML BAG IVPB ×3 (00:28→23:33)
[2025-01-07] MEDS: HYDROcodone/acetaminophen (*CRX) 5-325 MG TABLET 1 TAB PO ×3 (00:37→16:35)
[2025-01-07] MEDS: LEVOTHYROXINE SODIUM 100 MCG TABLET PO (05:16)
[2025-01-07 06:22] LABS: Hematocrit 25.5 % (42.0-52.0); Mean Corpuscular HGB Conc 31.4 g/dl (32-36); Mean Corpuscular Volume 89.2 fl (80-100); Mean Platelet Volume 10.2 fl (7.4-10.4); Platelet Count Result 201 k/mm3 (150-375); Red Blood Count 2.86 M/mm3 (4.6-6.20); Red Cell Distribution Width 18.4 % (11.5-14.5); White Blood Count 10.3 K/mm3 (4.5-10.0)
[2025-01-07 06:31] LABS: Alanine Aminotransferase 9 U/L (6-50); Albumin Level 2.7 g/dL (3.5-5.1); Alkaline Phosphatase 69 U/L (38-126); Anion Gap 8 mmol/L (4-12); Aspartate Amino Transferase 14 U/L (17-59); Bilirubin,Total 0.3 mg/dL (0.2-1.3); Blood Urea Nitrogen 21 mg/dL (9-20); Calcium 7.5 mg/dL (8.4-10.2); Carbon Dioxide 21 mmol/L (22-30); Chloride 101 mmol/L (98-107); Estimated CRCL calculation 51 ml/min; Estimated Glomerular Filt Rate > 60; Glucose 111 mg/dL (65-110); Magnesium 1.6 mg/dL (1.6-2.3); Potassium 3.2 mmol/L (3.4-5.0); Sodium 130 mmol/L (137-145)
[2025-01-07] MEDS: SODIUM CHLORIDE 0.9% IV 1,000 ML 125 ML IV CONT ×3 (06:53→21:23)
[2025-01-07 07:02] LABS: Acanthocytes 1+; Anisocytosis 1+; Band Neutrophils Percent 2 % (0-6); Hypochromasia 1+; Lymphocytes Absolute Manual 2.16 K/mm3 (1.1-4.5); Lymphocytes Percent Manual 21 % (18-44); Monocytes Absolute Manual 0.51 K/mm3 (0.1-0.90); Monocytes Percent Manual 5 % (3-9); Neutrophils Absolute Manual 7.62 K/mm3 (1.3-6.7); Neutrophils Percent Manual 72 % (46-73); Ovalocytes 1+; Platelet Estimate Adequate (Adequate); Poikilocytosis 1+; Schistocytes Rare; Smudge Cells PRESENT; Target Cells 1+; Tear Drop Cells 1+; Total Cells Counted 100
[2025-01-07 07:03] LABS: Atypical Lymphocytes Present
[2025-01-07] MEDS: IPRATROPIUM 0.5 MG/ALBUTEROL SULFATE 2.5 MG AMPUL.NEB 3 ML INHALATION ×3 (07:33→21:00)
[2025-01-07] MEDS: polyethylene glycoL 3350 17 GM POWD.PACK PO (08:21)
[2025-01-07] MEDS: TAMSULOSIN HCL 0.4 MG CAPSULE 0.8 MG PO (08:21)
[2025-01-07] MEDS: FUROSEMIDE 40 MG TABLET PO (08:21)
[2025-01-07] MEDS: GABAPENTIN 300 MG CAPSULE PO ×2 (08:21→16:27)
[2025-01-07] MEDS: carvediloL 3.125 MG TABLET PO ×2 (08:21→21:25)
[2025-01-07] MEDS: DULoxetine HCL 60 MG CAPSULE.DR PO (08:21)
[2025-01-07] MEDS: FOLIC ACID 1 MG TABLET PO (08:21)
[2025-01-07] MEDS: LORATADINE 10 MG TABLET PO (08:21)
[2025-01-07] MEDS: FINASTERIDE 5 MG TABLET PO (08:21)
[2025-01-07] MEDS: PANTOPRAZOLE 40 MG TABLET PO (08:21)
[2025-01-07] MEDS: amLODIPine BESYLATE 2.5 MG TABLET PO (08:22)
[2025-01-07] MEDS: ASCORBIC ACID 500 MG TABLET PO ×2 (08:22→16:27)
[2025-01-07] MEDS: allopurinoL 100 MG TABLET PO (08:23)
[2025-01-07] MEDS: CYANOCOBALAMIN 1,000 MCG TABLET 1000 MCG PO (08:23)
[2025-01-07] MEDS: CARBIDOPA/LEVODOPA 25/100 MG TABLET 3 TABLET PO ×3 (08:23→16:27)
[2025-01-07] MEDS: SENNA/DOCUSATE SODIUM TABLET 2 TAB PO ×2 (08:23→21:24)
[2025-01-07] MEDS: CHOLECALCIFEROL 5,000 UNITS TABLET 5000 UNITS PO (08:23)
--- NOTE | 2025-01-07 12:06 | P.PNIM_ITS ---
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 * he was given a dose of Rocephin in the ED however we will change this over to meropenem (2) History of infection due to ESBL Escherichia coli: Code(s): Z86.19 - Personal history of other infectious and parasitic diseases Status: Acute Assessment and Plan: see above plan of care (3) Essential hypertension: Code(s): I10 - Essential (primary) hypertension Status: Acute Assessment and Plan: * blood pressure ranging 110/78 to 115/66 * continue amlodipine (4) Dyslipidemia: Code(s): E78.5 - Hyperlipidemia, unspecified Status: Acute Assessment and Plan: * continue atorvastatin (5) Hypothyroidism: Code(s): E03.9 - Hypothyroidism, unspecified Status: Acute Assessment and Plan: * continue Synthroid (6) Gastroesophageal reflux disease: Code(s): K21.9 - Gastro-esophageal reflux disease without esophagitis Status: Acute Assessment and Plan: * start Protonix Plan Code status: Full code per patient DVT prophylaxis: SCD Stress ulcer prophylaxis: Protonix 40 daily PT/OT notes: SNF Disposition: Patient continues admission to the medical unit further treatment evaluation urinary tract infection patient with history of ESBL will continue with IV meropenem pending culture. Patient currently facility plan to return to [facility] when medically stable. Time Spent With Patient Time with patient: 15 - 25 minutes Subjective Date/time seen: 01/07/25 12:06 Interval history: 84-year-old male with a significant past medical history of depression, anxiety, history of ESBL infections, Patient was found to have abdominal pain at his nursing facility. He has had history of ESBL urinary tract infections and was sent here for further evaluation. Workup in the hospital included an abdominal x-ray which showed normal bowel gas pattern. CT of the abdomen/ pelvis shown stool distends the rectum. 01/07/2025: Assumed Care Patient states he is not feeling well today, quiet withdrawn. Patient reports feeling feverish and having chills. Reported BM Review of Systems Review of Systems: All systems reviewed & are unremarkable except as noted in HPI and below Exam Const: General: no acute distress and uncomfortable HENMT: Mouth: Yes moist mucous membranes Eyes: General: appearance normal, both eyes and all related structures Neck: Neck: supple and no JVD Resp: Effort & Inspection: normal respiratory effort Auscultation: clear to auscultation bilaterally Cardio: Rate: regular rate Rhythm: regular rhythm GI: GI Palp: Yes Soft to palpation Auscultation: normal bowel sounds Urinary Catheter: Urinary Catheter: patent and draining and urine cloudy Skin: General skin exam: normal color and no rashes or lesions noted Neuro: Other: Bedbound Extrem: General: normal to inspection Psych: Mental Status: mental status grossly normal Objective Data Vital Signs Vital Signs: Vital Signs - 24 hr 01/06/25 12:28 01/06/25 12:57 01/06/25 13:23 Temperature 97.6 F Pulse Rate 85 80 79 Respiratory Rate 20 18 15 Blood Pressure 92/69 L 86/62 L 98/60 L Pulse Oximetry 96 97 97 Oxygen Delivery Room Air 01/06/25 15:07 01/06/25 15:24 01/06/25 15:33 Temperature Pulse Rate Respiratory Rate Blood Pressure 103/56 L 110/78 99/60 L Pulse Oximetry Oxygen Delivery 01/06/25 16:42 01/06/25 18:00 01/06/25 20:00 Temperature 97.7 F Pulse Rate 67 Respiratory Rate 18 Blood Pressure 112/65 Pulse Oximetry 100 100 Oxygen Delivery Room Air Room Air 01/06/25 20:45 01/07/25 04:46 01/07/25 07:33 Temperature 97.6 F 97.7 F Pulse Rate 66 81 Respiratory Rate 18 16 Blood Pressure 115/66 112/59 L Pulse Oximetry 96 96 97 Oxygen Delivery Room Air 01/07/25 07:33 01/07/25 07:44 01/07/25 08:21 Temperature Pulse Rate 74 74 74 Respiratory Rate 18 18 Blood Pressure Pulse Oximetry Oxygen Delivery Intake/Output Intake/Output: Intake & Output 01/04/25 01/05/25 01/06/25 01/07/25 23:59 23:59 23:59 23:59 Intake Total 2049 1749 Output Total 475 Balance 2049 1275 Meds/Results Medications: Active Medications Generic Name Dose Route Start Last Admin Trade Name Freq PRN Reason Stop Dose Admin Acetaminophen 650 mg 01/06/25 23:53 Acetaminophen 325 Mg Tablet PO Q4H PRN fever or pain 1-3 Hydrocodone Bitart/Acetaminophen 1 tab 01/06/25 23:53 01/07/25 08:26 Hydrocodone/Acetaminophen (*Crx) 5-325 Mg Tablet PO 1 tab Q8H PRN Administration Pain (Scale Score 4-6) Albuterol 1 puff 01/06/25 23:53 Albuterol Sulfate (*Sp) Aerosol 1 Puff INHALATION Q4HRT PRN shortness of breath or wheezing Albuterol/Ipratropium 3 ml 01/07/25 08:00 01/07/25 07:33 Ipratropium 0.5 Mg/Albuterol Sulfate 2.5 Mg Ampul.Neb 3 Ml INHALATION 3 ml TIDRT TENISHA Administration Allopurinol 100 mg 01/07/25 09:00 01/07/25 08:23 Allopurinol 100 Mg Tablet PO 100 mg DAILY TENISHA Administration Amlodipine Besylate 2.5 mg 01/07/25 09:00 01/07/25 08:22 Amlodipine Besylate 2.5 Mg Tablet PO 2.5 mg QAM TENISHA Administration Artificial Tears 1 drop 01/06/25 23:53 Artificial Tears Ophth Soln 15 Ml Bottle EACH EYE BID PRN dry eye(s) Ascorbic Acid 500 mg 01/07/25 09:00 01/07/25 08:22 Ascorbic Acid 500 Mg Tablet PO 500 mg BID TENISHA Administration Atorvastatin Calcium 80 mg 01/07/25 21:00 Atorvastatin 40 Mg Tablet PO HS TENISHA Bisacodyl 10 mg 01/06/25 23:53 Bisacodyl 10 Mg Suppository RECTAL DAILY PRN Constipation Carbidopa/Levodopa 3 tablet 01/07/25 09:00 01/07/25 08:23 Carbidopa/Levodopa 25/100 Mg Tablet PO 3 tablet TID TENISHA Administration Carvedilol 3.125 mg 01/07/25 09:00 01/07/25 08:21 Carvedilol 3.125 Mg Tablet PO 3.125 mg Q12HR TENISHA Administration Cyanocobalamin 1,000 mcg 01/07/25 09:00 01/07/25 08:23 Cyanocobalamin 1,000 Mcg Tablet PO 1,000 mcg DAILY TENISHA Administration Diclofenac Sodium 1 applic 01/07/25 09:00 Diclofenac Sodium 1% 100 Gm Gel (*Bkc) TOPICAL BID [facility] Duloxetine HCl 60 mg 01/07/25 09:00 01/07/25 08:21 Duloxetine Hcl 60 Mg Capsule. PO 60 mg DAILY TENISHA Administration Ferrous Sulfate 325 mg 01/07/25 13:00 Ferrous Sulfate [address] PO 1300,1700,2100 TENISHA Finasteride 5 mg 01/07/25 09:00 01/07/25 08:21 Finasteride 5 Mg Tablet PO 5 mg DAILY TENISHA Administration Folic Acid 1 mg 01/07/25 09:00 01/07/25 08:21 Folic Acid 1 Mg Tablet PO 1 mg DAILY TENISHA Administration Furosemide 40 mg 01/07/25 09:00 01/07/25 08:21 Furosemide 40 Mg Tablet PO 40 mg DAILY TENISHA Administration Gabapentin 300 mg 01/07/25 09:00 01/07/25 08:21 Gabapentin 300 Mg Capsule PO 300 mg BID TENISHA Administration Sodium Chloride 1,000 mls @ 125 mls/hr 01/06/25 16:10 01/07/25 06:53 Normal Saline Iv IV CONT 125 mls/hr .Q8H TENISHA Administration Meropenem 1 gm in 100 mls @ 200 mls/hr 01/07/25 00:00 01/07/25 00:28 IVPB 200 mls/hr Q12H TENISHA Administration Lactulose 20 gm 01/06/25 23:53 Lactulose 20 Gm/30 Ml Udc PO DAILY PRN Constipation Levothyroxine Sodium 100 mcg 01/07/25 06:30 01/07/25 05:16 Levothyroxine Sodium 100 Mcg Tablet PO 100 mcg DAILY@0630 TNEISHA Administration Lidocaine 1 patch 01/07/25 09:00 01/07/25 08:24 Lidocaine 5% Patch TOPICAL 1 patch DAILY TENISHA Administration Loratadine 10 mg 01/07/25 09:00 01/07/25 08:21 Loratadine 10 Mg Tablet PO 10 mg DAILY TENISHA Administration Magnesium Citrate 296 ml 01/06/25 23:53 Magnesium Citrate 300 Ml Btl PO DAILY PRN constipation Methotrexate 15 mg 01/13/25 09:00 Methotrexate 2.5 Mg Tab (*Chemo) PO WEEKLY [facility] Miscellaneous Information 0 each 01/07/25 00:01 Bisacodyl, Lactulose, Mag Citrate All Duplicate Prn Constipation Please Clarify Which To XX 02/06/25 00:00 CLARIFY TENISHA Ondansetron HCl 4 mg 01/06/25 23:51 Ondansetron Inj 4 Mg/2 Ml Vial IV PUSH Q6H PRN Nausea And Vomiting Pantoprazole Sodium 40 mg 01/07/25 09:00 01/07/25 08:21 Pantoprazole 40 Mg Tablet PO 40 mg QAM TENISHA Administration Polyethylene Glycol 17 gm 01/07/25 09:00 01/07/25 08:21 Polyethylene Glycol 3350 17 Gm Powd.Pack PO 17 gm QAM TENISHA Administration Senna/Docusate Sodium 2 tab 01/07/25 09:00 01/07/25 08:23 Senna/Docusate Sodium Tablet PO 2 tab Q12HR TENISHA Administration Spironolactone 25 mg 01/07/25 09:00 Spironolactone 25 Mg Tablet PO DAILY TENISHA Tamsulosin HCl 0.8 mg 01/07/25 09:00 01/07/25 08:21 Tamsulosin Hcl 0.4 Mg Capsule PO 0.8 mg DAILY TENISHA Administration Vitamin D 5,000 units 01/07/25 09:00 01/07/25 08:23 Cholecalciferol 5,000 Units Tablet PO 5,000 units DAILY TENISHA Administration Radiology Results: ITS Impressions Abdomen X-Ray 01/06/25 14:08 IMPRESSION: 1. Normal bowel gas pattern. Abdomen/Pelvis CT 01/06/25 14:47 IMPRESSION: 1. Stool distends the rectum. Labs Labs: Laboratory Results - last 24 hr 01/06/25 01/06/25 01/07/25 13:17 16:30 05:54 WBC 16.7 H 10.3 H RBC 3.43 L 2.86 L Hgb 9.7 L 8.0 L Hct 29.7 L 25.5 L MCV 86.6 89.2 MCH 28.3 28.0 MCHC 32.7 31.4 L RDW 18.5 H 18.4 H Plt Count 240 201 MPV 10.2 10.2 Immature Gran % (Auto) 1.1 H Not Reportable Neut % (Auto) 55.5 Not Reportable Lymph % (Auto) 38.3 Not Reportable [place] % (Auto) 4.5 Not Reportable Eos % (Auto) 0.1 Not Reportable Baso % (Auto) 0.5 Not Reportable Lymph # (Auto) 6.40 H Not Reportable [place] # (Auto) 0.8 H Not Reportable Eos # (Auto) 0.0 Not Reportable Baso # (Auto) 0.1 Not Reportable Abs Immat Gran (auto) 0.19 H Not Reportable Absolute Neuts (auto) 9.3 H Not Reportable Absolute Nucleated RBC 0.000 Not Reportable Total Counted 100 Neutrophils % (Manual) 72 Band Neutrophils % 2 Lymphocytes % (Manual) 21 Monocytes % (Manual) 5 Nucleated RBC % 0.0 Not Reportable Abs Neuts (Manual) 7.62 H Abs Lymphs (Manual) 2.16 Abs Monocytes (Manual) 0.51 Atypical Lymphocytes Present Smudge Cells Present Platelet Estimate Adequate Hypochromasia 1+ Poikilocytosis 1+ Anisocytosis 1+ Target Cells 1+ Tear Drop Cells 1+ Ovalocytes 1+ Acanthocytes (Spur) 1+ Schistocytes Rare Sodium 127 L 130 L Potassium 3.7 3.2 L Chloride 95 L 101 Carbon Dioxide 18 L 21 L Anion Gap 14 H 8 BUN 24 H 21 H Creatinine 1.16 1.03 Estim Creat Clear Calc 46 51 Estimated GFR 60 > 60 Glucose 131 H 111 H Lactic Acid 1.1 Calcium 8.3 L 7.5 L Magnesium 1.6 Total Bilirubin 0.8 0.3 AST 17 14 L ALT 7 9 Alkaline Phosphatase 85 69 Total Protein 7.0 6.0 L Albumin 3.2 L 2.7 L Lipase 65 TSH 2.670 Urine Color Dark yellow Urine Appearance Turbid H Urine pH 8.5 Ur Specific [place] 1.022 Urine Protein 2+ H Urine Glucose (UA) Negative Urine Ketones Trace H Ur Blood (Man) Negative Urine Nitrate Negative Urine Bilirubin Negative Urine Urobilinogen 1.0 Leukocyte Esterase Rfl 3+ H Urine RBC 0-2 Urine WBC 11-20 H Ur Squamous Epith Cells Few Triple Phos Crystals Many H Amorphous Sediment Moderate H Urine Bacteria 1+ H Quality VTE Prophylaxis VTE prophylaxis: mechanical ordered -Patient's previous records reviewed on admission -ER notes reviewed in detail on admission -discussed all findings and current treatment plan with patient/Family/POA -Consultations reviewed for recommendations -Patient's disposition for safe discharge discussed with case management assistant Dictation performed by [employer] ([id number] direct speech recognition software, therefore filtration operator variants and typographical errors may occur. Hospitalist MIPS Advance Care Plan I have confirmed that the patient's Advanced Care Plan is present, code status is documented, or surrogate decision maker is listed in patient medical record.: Yes Medication Reconciliation I have utilized all available resources to obtain, update and review the patients current medications (includes all prescriptions, OTC, herbals, cannabis, and nutritional supplements).: Yes The patient is not eligible for med reconciliation; the patient is in a emergent medical situation where delaying treatment would jeopardize the patients health.: No
[2025-01-07] MEDS: FERROUS SULFATE 325 MG TABLET DR PO ×3 (12:33→21:25)
[2025-01-07] MEDS: DICLOFENAC SODIUM 1% 100 GM GEL (*BKC) 1 APPLIC TOPICAL ×2 (12:33→16:29)
[2025-01-07] MEDS: LACTULOSE 20 GM/30 ML UDC PO (16:27)
[2025-01-07] MEDS: ATORVASTATIN 40 MG TABLET 80 MG PO (21:24)
[2025-01-07] MEDS: MORPHINE SULFATE (*CRX) 2 MG/ML INJ IV PUSH (23:34)
[2025-01-07] MEDS: BISACODYL 10 MG SUPPOSITORY RECTAL (23:36)
[2025-01-08] VITALS (7 sets, daily range): BP systolic 117–119; BP diastolic 69–71; PULSE 60–68; RESP 18–20; TEMP 36.2–37.5; O2SAT 95–98
[2025-01-08] MEDS: LEVOTHYROXINE SODIUM 100 MCG TABLET PO (05:50)
[2025-01-08 06:37] LABS: Hematocrit 25.2 % (42.0-52.0); Hemoglobin 7.8 g/dL (14.0-18.0); Mean Corpuscular Hemoglobin 27.9 pg (26-34); Mean Platelet Volume 10.6 fl (7.4-10.4); Platelet Count Result 193 k/mm3 (150-375); Red Cell Distribution Width 18.2 % (11.5-14.5); White Blood Count 9.1 K/mm3 (4.5-10.0)
[2025-01-08 06:48] LABS: Albumin Level 2.6 g/dL (3.5-5.1); Alkaline Phosphatase 81 U/L (38-126); Anion Gap 7 mmol/L (4-12); Aspartate Amino Transferase 16 U/L (17-59); Bilirubin,Total 0.4 mg/dL (0.2-1.3); Blood Urea Nitrogen 13 mg/dL (9-20); Calcium 7.7 mg/dL (8.4-10.2); Carbon Dioxide 21 mmol/L (22-30); Chloride 102 mmol/L (98-107); Estimated CRCL calculation 63 ml/min; Estimated Glomerular Filt Rate > 60; Glucose 92 mg/dL (65-110); Potassium 3.1 mmol/L (3.4-5.0); Sodium 130 mmol/L (137-145)
[2025-01-08 06:55] LABS: Alanine Aminotransferase < 6 U/L (6-50)
[2025-01-08 07:02] LABS: Anisocytosis 1+; Band Neutrophils Percent 1 % (0-6); Basophils Absolute Manual 0.09 K/mm3 (0.0-0.1); Basophils Percent Manual 1 % (0-1); Burr Cells 1+; Eosinophils Absolute Manual 0.18 K/mm3 (0.02-0.50); Eosinophils Percent Manual 2 % (0-4); Lymphocytes Absolute Manual 1.82 K/mm3 (1.1-4.5); Lymphocytes Percent Manual 20 % (18-44); Monocytes Absolute Manual 0.45 K/mm3 (0.1-0.90); Monocytes Percent Manual 5 % (3-9); Neutrophils Absolute Manual 6.55 K/mm3 (1.3-6.7); Neutrophils Percent Manual 71 % (46-73); Platelet Estimate Adequate (Adequate); Schistocytes None Seen; Total Cells Counted 100
[2025-01-08] MEDS: SODIUM CHLORIDE 0.9% IV 1,000 ML 125 ML IV CONT (07:21)
--- NOTE | 2025-01-08 08:45 | P.DS_ITS ---
DS: Admitting Diagnosis Discharge Date 01/08/2025 Admitting Diagnosis Constipation/UTI DS: Discharge Diagnosis Discharge Diagnosis (1) Acute UTI: Code(s): N39.0 - Urinary tract infection, site not specified Status: Acute Assessment and Plan: R/O (2) History of infection due to ESBL Escherichia coli: Code(s): Z86.19 - Personal history of other infectious and parasitic diseases Status: Acute Assessment and Plan: see above plan of care (3) Essential hypertension: Code(s): I10 - Essential (primary) hypertension Status: Acute Assessment and Plan: * blood pressure ranging 110/78 to 115/66 * continue amlodipine (4) Dyslipidemia: Code(s): E78.5 - Hyperlipidemia, unspecified Status: Acute Assessment and Plan: * continue atorvastatin (5) Hypothyroidism: Code(s): E03.9 - Hypothyroidism, unspecified Status: Acute Assessment and Plan: * continue Synthroid (6) Gastroesophageal reflux disease: Code(s): K21.9 - Gastro-esophageal reflux disease without esophagitis Status: Acute Assessment and Plan: * start Protonix (7) Constipation: Qualifiers: Constipation type: unspecified constipation type Qualified Code(s): K59.00 - Constipation, unspecified Code(s): K59.00 - Constipation, unspecified Status: Acute Plan Disposition: Discharged to home DS: Summary Hospital Course Reason for hospitalization: Constipation/UTI R/O Hospital Course: Patient was a 84-year-old male with a significant past medical history of depression, anxiety, history of ESBL infections, urinary retention due to BPH, diastolic dysfunction, arthritis, GERD, 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 Patient is a poor historian and most of the history of presenting illness was obtained from the medical record. Patient was found to have abdominal pain at his nursing facility. He has had history of ESBL urinary tract infections and was sent here for further evaluation. Workup in the hospital included an abdominal x-ray which showed normal bowel gas pattern. CT of the abdomen/ pelvis shown stool distends the rectum. Initial labs showed a white blood cell count of 16.7, hemoglobin 9.7, sodium 127, chloride 95, bicarb 18, anion gap 14, lactic acid was normal at 1.1. A UA was obtained which showed turbid urine appearance, 2+ urine protein, trace ketone, 3+ leukocyte, 11-20 urine WBC, moderate amorphous sediment, 1+ urine bacteria. Urine culture was obtained and pending. Patient was given 2 L of normal saline, morphine, Zofran, started on IV fluids and given a dose of Rocephin while in the ED. Patient was transferred to the medical unit for further evaluation and treatment of abdominal pain possible secondary to UTI and constipation. Patient was switched over to meropenem due to history of ESBL pending cultures and started on bowel regimen for constipation. During hospitalization patient reported bowel movement and improvement to abdominal pain. Urine culture came back with no growth and discontinued his antibiotic therapy. Blood cultures remained with no growth normal WBC and afebrile during his stay. patient was seen assessed on day of discharge in no acute distress labs at baseline but did replenish potassium that was 3.1, hemoglobin 7.8 close to baseline HX of LYNN resumed ferrous sulfate. patient denied any chest pain, shortness breath, nausea, vomiting was tolerating oral intake and chronic urinary catheter with patent draining and clear urine. patient [facility]. Status at Discharge Functional status at discharge: bed bound Overall status at discharge: patient is back to baseline Time Spent with Patient Time attestation: Total time spent providing and/or coordinating discharge services: Time spent: Greater than 30 minutes Exam Const: General: comfortable, no acute distress and uncomfortable HENMT: Mouth: Yes moist mucous membranes Eyes: General: appearance normal, both eyes and all related structures Neck: Neck: supple and no JVD Resp: Effort & Inspection: normal respiratory effort Auscultation: clear to auscultation bilaterally Cardio: Rate: regular rate Rhythm: regular rhythm GI: Auscultation: normal bowel sounds Urinary Catheter: Urinary Catheter: patent and draining and urine clear Skin: General skin exam: normal color and no rashes or lesions noted Neuro: Other: Bedbound Extrem: General: normal to inspection Psych: Mental Status: mental status grossly normal DS: Data Data Completed and Pending Labs on day of discharge: Labs from last 24 hours 01/08/25 06:15 WBC 9.1 RBC 2.80 L Hgb 7.8 L Hct 25.2 L MCV 90.0 MCH 27.9 MCHC 31.0 L RDW 18.2 H Plt Count 193 MPV 10.6 H Immature Gran % (Auto) Not Reportable Neut % (Auto) Not Reportable Lymph % (Auto) Not Reportable [place] % (Auto) Not Reportable Eos % (Auto) Not Reportable Baso % (Auto) Not Reportable Lymph # (Auto) Not Reportable [place] # (Auto) Not Reportable Eos # (Auto) Not Reportable Baso # (Auto) Not Reportable Abs Immat Gran (auto) Not Reportable Absolute Neuts (auto) Not Reportable Absolute Nucleated RBC Not Reportable Total Counted 100 Neutrophils % (Manual) 71 Band Neutrophils % 1 Lymphocytes % (Manual) 20 Monocytes % (Manual) 5 Eosinophils % (Manual) 2 Basophils % (Manual) 1 Nucleated RBC % Not Reportable Abs Neuts (Manual) 6.55 Abs Lymphs (Manual) 1.82 Abs Monocytes (Manual) 0.45 Absolute Eos (Manual) 0.18 Abs Basophils (Manual) 0.09 Platelet Estimate Adequate Anisocytosis 1+ Gail Cells 1+ Schistocytes None seen Sodium 130 L Potassium 3.1 L Chloride 102 Carbon Dioxide 21 L Anion Gap 7 BUN 13 D Creatinine 0.82 Estim Creat Clear Calc 63 Estimated GFR > 60 Glucose 92 Calcium 7.7 L Total Bilirubin 0.4 AST 16 L ALT < 6 L Alkaline Phosphatase 81 Total Protein 6.0 L Albumin 2.6 L Imaging Radiologist's impression: Radiology Results: ITS Impressions Abdomen X-Ray 01/06/25 14:08 IMPRESSION: 1. Normal bowel gas pattern. Abdomen/Pelvis CT 01/06/25 14:47 IMPRESSION: 1. Stool distends the rectum. Discharge Plan Discharge Attending physician on discharge: Kareem Yanez Consulting providers: Andree Waddell Discharging Clinician: Andree Waddell Anticipated Discharge Date/Time: 01/08/25 08:38 Patient Disposition: SNF Activity: as tolerated Diet: as tolerated Discharge Instructions: Constipation: * Continue with your bowel regiment at home * I encourage hydration Your urine did not grow any bacteria no need for further antibiotic coverage please change out your strauss catheter as directed. How can you care for yourself at home? ? Keep track of any new symptoms or changes in your symptoms. ? Rest until you feel better. ? Be safe with medicines. Take your medicines exactly as prescribed. Call your doctor if you think you are having a problem with your medicine. ? Do not drive after taking a prescription pain medicine. ? Ensure to follow-up with primary care physician as indicated and provide updated medication list provided to you at discharge. When should you call for help? Call 911 anytime you think you may need emergency care. For example, call if: ? You passed out (lost consciousness). Call your doctor now or seek immediate medical care if: ? You have new symptoms like fever, difficulty breathing, Chest pain, vomiting, or rash. ? You have new or different pain. ? You are confused and are having trouble thinking clearly. ? Your symptoms are getting worse. Watch closely for changes in your health, and be sure to contact your doctor if: ? You do not get better as expected. Patient Language: Yakut Stand Alone Forms: General Discharge Information, Intermediate Discharge Follow-up/Referrals: Raoul Forbes MD [Primary Care Provider] - 2 Weeks Discharge Medications: Continued alendronate 70 mg tablet 70 mg PO WEEKLY Rx Instructions: every friday bisacodyl [Dulcolax (bisacodyl)] 10 mg suppository 10 mg RECTAL DAILY PRN (Reason: Constipation) ondansetron 8 mg tablet,disintegrating 8 mg PO Q8H carbidopa-levodopa [Sinemet] 25-100 mg tablet 3 tablet PO TID Qty: 240 6RF Rx Instructions: May increase to 3 tablets 4 times a day as necessary atorvastatin 80 mg tablet 80 mg PO HS acetaminophen 325 mg tablet 650 mg PO Q4H PRN (Reason: fever or pain) fluticasone propion-salmeterol [Advair Diskus] 250-50 mcg/dose blister with device 1 inh inhalation Q12H Artificial Tears([id number]) 0.1-0.3 % drops 1 drp EACH EYE BID PRN (Reason: dry eye(s)) magnesium citrate [Citroma] Solution 296 ml PO DAILY PRN (Reason: constipation) cyanocobalamin (vitamin B-12) 1,000 mcg capsule 1,000 mcg PO DAILY sodium phosphates 19-7 gram/118 mL enema 118 ml RECTAL DAILY PRN (Reason: constipation) Rx Instructions: INSERT 1 APPLICATION RECTALLY NEEDED FOR CONSTIPATION IF NO RESULTS 1 DAY AFTER SUPPOSITORY dextromethorphan-guaifenesin [Tussin DM] 10-100 mg/5 mL liquid 10 ml PO Q6H PRN (Reason: cough) ipratropium-albuterol 0.5 mg-3 mg(2.5 mg base)/3 mL solution for nebulization 3 ml INHALATION TID diclofenac sodium [Arthritis Pain (diclofenac)] 1 % gel 4 g topical BID Rx Instructions: APPLY TO RIGHT NEED sennosides-docusate sodium [2-in-1 Laxative] 8.6-50 mg tablet 2 tab-cap PO BID Rx Instructions: MAY HOLD FOR SOFT STOOL WITHIN 24 HOURS finasteride 5 mg tablet 5 mg PO DAILY guaifenesin [Mucus Relief ER] 600 mg Tablet Extended Release 12hr 600 mg PO Q12HR Qty: 30 0RF lactulose [Enulose] 10 gram/15 mL solution 30 ml PO DAILY PRN (Reason: Constipation) Qty: 237 0RF hydrocodone-acetaminophen 5-325 mg tablet 1 tablet PO Q8H PRN (Reason: Pain (Scale Score 4-6)) Qty: 6 0RF lidocaine [Lidoderm] 5 % adhesive patch,medicated 1 patch topical DAILY Qty: 15 0RF Patient Comments: APPLY TO LOWER BACK TOPICALLY TWO TIMES A DAY Rx Instructions: leave on most painful area for up to 12 hrs carvedilol 3.125 mg Tablet 3.125 mg PO BID Rx Instructions: must administer with a meal/food magnesium hydroxide [Milk of Magnesia] 400 mg/5 mL Suspension 30 ml PO HS PRN (Reason: Constipation) Rx Instructions: if no BM in three days gabapentin 300 mg Capsule 300 mg PO BID omeprazole 20 mg Capsule,Delayed Release(Dr/Ec) 20 mg PO DAILY furosemide 20 mg Tablet 40 mg PO DAILY allopurinol 100 mg tablet 100 mg PO DAILY methotrexate sodium 2.5 mg tablet 15 mg PO DAILY potassium chloride 10 mEq tablet extended release 10 meq PO DAILY spironolactone 25 mg tablet 25 mg PO DAILY amlodipine 5 mg tablet 2.5 mg PO QAM ferrous sulfate 325 mg (65 mg iron) Tablet,Delayed Release (Dr/Ec) 325 mg PO TID folic acid 1 mg tablet 1 mg PO DAILY cholecalciferol (vitamin D3) [Vitamin D3] 125 mcg (5,000 unit) tablet 5,000 unit PO DAILY ascorbic acid (vitamin C) 500 mg capsule 500 mg PO BID loratadine [Allergy Relief (loratadine)] 10 mg tablet 10 mg PO DAILY polyethylene glycol 3350 [Miralax] 17 gram Powder In Packet 17 g PO QAM Qty: 10 0RF Patient Comments: HOLD FOR LOOSE STOOLS levothyroxine 100 mcg tablet 100 mcg PO DAILY Qty: 90 1RF tamsulosin 0.4 mg capsule 0.8 mg PO DAILY Qty: 180 1RF duloxetine 60 mg capsule,delayed release(DR/EC) 60 mg PO DAILY Qty: 30 1RF albuterol sulfate 90 mcg/actuation HFA aerosol inhaler 1 puff INHALATION Q4H PRN (Reason: shortness of breath or wheezing) Qty: 8.5 1RF Date of admission: 01/07/25 08:53 Primary Care Provider: Raoul Forbes Admitting Provider: Ambreen Hwang Attending physician on admission: Ambreen Hwang Condition: Stable Quality VTE Prophylaxis VTE prophylaxis: mechanical ordered -Patient's previous records reviewed on admission -ER notes reviewed in detail on admission -discussed all findings and current treatment plan with patient/Family/POA -Consultations reviewed for recommendations -Patient's disposition for safe discharge discussed with field case manager Dictation performed by [employer] direct speech recognition software, therefore safety deposit supervisor variants and typographical errors may occur. Hospitalist MIPS Heart Failure (Exclusion) Patient has history of Heart Transplant or Left Ventricular Assistive Device?: No IF YES, STOP HERE Heart Failure (Qualifier) Patient has current or prior documentation of LVEF less than or equal to 40%, or mod/servere depressed LVSF?: No IF NO, STOP HERE
[2025-01-08] MEDS: IPRATROPIUM 0.5 MG/ALBUTEROL SULFATE 2.5 MG AMPUL.NEB 3 ML INHALATION ×2 (10:05→15:39)
[2025-01-08] MEDS: polyethylene glycoL 3350 17 GM POWD.PACK PO (10:21)
[2025-01-08] MEDS: HYDROcodone/acetaminophen (*CRX) 5-325 MG TABLET 1 TAB PO ×2 (10:21→17:37)
[2025-01-08] MEDS: POTASSIUM CHLORIDE 20 MEQ PACKET (FOR LIQUID) 40 MEQ PO (10:21)
[2025-01-08] MEDS: FUROSEMIDE 40 MG TABLET PO (10:22)
[2025-01-08] MEDS: LORATADINE 10 MG TABLET PO (10:22)
[2025-01-08] MEDS: DULoxetine HCL 60 MG CAPSULE.DR PO (10:22)
[2025-01-08] MEDS: GABAPENTIN 300 MG CAPSULE PO ×2 (10:22→16:36)
[2025-01-08] MEDS: FINASTERIDE 5 MG TABLET PO (10:22)
[2025-01-08] MEDS: carvediloL 3.125 MG TABLET PO (10:23)
[2025-01-08] MEDS: CARBIDOPA/LEVODOPA 25/100 MG TABLET 3 TABLET PO ×3 (10:23→16:37)
[2025-01-08] MEDS: allopurinoL 100 MG TABLET PO (10:23)
[2025-01-08] MEDS: FOLIC ACID 1 MG TABLET PO (10:23)
[2025-01-08] MEDS: amLODIPine BESYLATE 2.5 MG TABLET PO (10:23)
[2025-01-08] MEDS: ASCORBIC ACID 500 MG TABLET PO ×2 (10:23→16:36)
[2025-01-08] MEDS: CYANOCOBALAMIN 1,000 MCG TABLET 1000 MCG PO (10:24)
[2025-01-08] MEDS: TAMSULOSIN HCL 0.4 MG CAPSULE 0.8 MG PO (10:24)
[2025-01-08] MEDS: PANTOPRAZOLE 40 MG TABLET PO (10:24)
[2025-01-08] MEDS: SENNA/DOCUSATE SODIUM TABLET 2 TAB PO (10:25)
[2025-01-08] MEDS: CHOLECALCIFEROL 5,000 UNITS TABLET 5000 UNITS PO (10:25)
[2025-01-08] MEDS: DICLOFENAC SODIUM 1% 100 GM GEL (*BKC) 1 APPLIC TOPICAL (10:25)
[2025-01-08] MEDS: FERROUS SULFATE 325 MG TABLET DR PO ×2 (12:28→16:36)
[2025-01-08] MEDS: MEROPENEM 1 GM/NS 100 ML 1 GM/100 ML BAG IVPB (12:28)
== END 2025-01-08 18:11 | DRG 392 ==
LOC: ANHED 15:43 → ANH3MEDSUR 16:59
PROVIDERS: Nurse Practitioner Acute Care; Admitting Provider Hospitalist; Emergency Provider Emergency Medicine; PCP Family Medicine; Visit Provider Nurse Practitioner Family
DX: K59.00 Constipation, unspecified (principal); I10 Essential (primary) hypertension; E78.5 Hyperlipidemia, unspecified; E03.9 Hypothyroidism, unspecified; F32.A Depression, unspecified; F41.9 Anxiety disorder, unspecified; R33.8 Other retention of urine; N40.1 Benign prostatic hyperplasia with lower urinary tract symptoms; M19.90 Unspecified osteoarthritis, unspecified site; K21.9 Gastro-esophageal reflux disease without esophagitis; G47.33 Obstructive sleep apnea (adult) (pediatric); D64.9 Anemia, unspecified; I12.9 Hypertensive chronic kidney disease with stage 1 through stage 4 chronic kidney disease, or unspecified chronic kidney disease; N18.30 Chronic kidney disease, stage 3 unspecified; G20.A1 Parkinson's disease without dyskinesia, without mention of fluctuations; Z85.528 Personal history of other malignant neoplasm of kidney; Z90.5 Acquired absence of kidney; R91.1 Solitary pulmonary nodule; Z85.72 Personal history of non-Hodgkin lymphomas; Z90.49 Acquired absence of other specified parts of digestive tract
CPT/HCPCS: 36415; 74019; 74177; 80053; 81001; 83605; 83690; 83735; 84443; 85025; 87086; 94640; 96361; 96365; 96366; 96375; 99285; A9270; G0378; J0696; J2185; J2270; J2405; J7030; Q9967

== ENCOUNTER 2025-03-01 17:37 | Emergency (ER) | payer MEDICARE, MEDICAID, SELFPAY ==
[2025-03-01] VITALS (22 sets, daily range): BP systolic 97–139; BP diastolic 62–92; PULSE 55–90; RESP 11–39; TEMP 36.3–37.1; O2SAT 96–100
--- NOTE | ~2025-03-01 | CT_ITS ---
History: Fall PROCEDURE: CT head without contrast. COMPARISON: 11/15/2024 and dating back to 01/22/2024 TECHNIQUE: Axial imaging of the head performed from the skull base to the vertex without IV contrast. Sagittal a nd coronal reformations obtained. DLP: 681 mGy-cm FINDINGS: The ventricles are enlarged. The dilatation of the ventricles is proportional to the degree of sulcal prominence, not uncommon in the senescent brain. Decreased attenuation is identified within the periventricular white matter, likely secondary to micr ovascular ischemic disease, in a patient of this age. Punctate calcification within the right basal ganglia, unchanged from prior. There is no mass, mass effect or midline shift. There is no abnormal extra-axial fluid collection or intracranial hemorrhage. Visualized paranasal sinuses are clear. The mastoid air cells are well aerated. No acute displaced fractures within the overlying cranium. Impression: No acute intracranial hemorrhage or suspicious mass effect. Reviewed, dictated and finalized at location A. Impression: No acute intracranial hemorrhage or suspicious mass effect.
--- NOTE | ~2025-03-01 | XR_ITS ---
HISTORY: fall COMPARISON: None TECHNIQUE: 3 views of the left knee were performed FINDINGS: No acute or subacute fracture, erosion, lytic or sclerotic lesion. Significant medial and lateral tibiofemoral joint space narrowing is identified with endplate scleros is. No suprapatellar joint effusion is identified. The infrapatellar joint space is clear. Vascular calcifications are present. 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 Reviewed, dictated and finalized at location A. IMPRESSION: Significant degenerative disease without acute fracture, as detail ed above.
--- NOTE | ~2025-03-01 | XR_ITS ---
HISTORY: fall COMPARISON: None TECHNIQUE: 3 views of the right knee were performed FINDINGS: No acute or subacute fracture. Near complete obliteration of the medial and lateral tibiofemoral joint space and the patellofemoral joint space. Ossification of the insertion of the quadriceps tendon is noted. Moderate suprapatellar joint effusion is identified. The infrapatellar joint space is clear. IMPRESSION: Severe degenerative disease, with a moderate suprapatellar joint effusion. No acute fracture Reviewed, dictated and finalized at location A. IMPRESSION: Severe degenerative disease, with a moderate suprapatellar joint e ffusion. No acute fracture
--- NOTE | ~2025-03-01 | XR_ITS ---
HISTORY: fall COMPARISON: None TECHNIQUE: 2 views of the tibia and fibula FINDINGS: No acute or subacute fracture. Joint spaces are narrowed but preserved and alignment is maintained. Soft tissues are unremarkable without radiopaque foreign body. Significant vascular calcifications are present. Age-appropriate mineralization. IMPRESSION: Degenerative disease, without acute fracture. Reviewed, dictated and finalized at location A.
--- NOTE | ~2025-03-01 | CT_ITS ---
History: Fall PROCEDURE: CT cervical spine without intravenous contrast. COMPARISON: 01/22/2024 TECHNIQUE: Multiple contiguous axial images of the cervical spine were performed without the administration of i ntravenous contrast. DLP: 390 mGy-cm FINDINGS: Significant kyphosis. Ossification of the posterior longitudinal ligament. Significant degenerative disease is present, with osteophyte formation, disc space narrowing, endplat e changes and facet arthropathy. No acute displaced fractures are present. Biapical scarring. No soft tissue abnormality is present. The airway is patent Impression: Significant degenerative disease without acute fracture. Reviewed, dictated and finalized at location A. Impression: Significant degenerative disease without acute fracture.
--- NOTE | 2025-03-01 17:57 | ED.FALL ---
HPI - Fall General Chief Complaint: Fall <Emily Law PA-C - Last Filed: 03/01/25 22:40> Stated Complaint: fall from wc <Emily Law PA-C - Last Filed: 03/01/25 22:40> History of Present Illness HPI Narrative: 85-year-old male with history of hypertension, CKD, chronic indwelling Duron catheter presents to the ED via EMS from [facility] for a fall out of wheelchair that her preferred prior to arrival. Patient states he was bending over to pick something up off of the ground while sitting in his wheelchair and fell forward. Hit the right side of his head on the ground but did not lose consciousness. He is not anticoagulated. In the process he caught the skin of his left tib-fib on his wheelchair which resulted in a skin tear. Last Tdap unknown. Patient controlled. He is reporting pain to the skin tear into bilateral knees as well as head. He denies any neck pain but was placed in a C-collar by EMS. Denies back pain, chest pain, abdominal pain, other injuries acquired. He is A&O x4 upon arrival, however per EMS his mental status can range anywhere between A&O x2-4. <Emily Law PA-C - Last Filed: 03/01/25 22:40> Related Data Home Medications: Home Medications ?Medication ?Instructions ?Recorded ?Confirmed ?Last Taken ?Type alendronate 70 mg tablet 70 mg PO WEEKLY 06/03/23 01/06/25 12/07/24 History bisacodyl 10 mg rectal suppository 10 mg RECTAL DAILY PRN Constipation 06/03/23 01/06/25 11/17/23 History (Dulcolax (bisacodyl)) carvedilol 3.125 mg tablet 3.125 mg PO BID 11/22/23 01/06/25 Unknown History furosemide 20 mg tablet 40 mg PO DAILY 11/22/23 01/06/25 Unknown History gabapentin 300 mg capsule 300 mg PO BID 11/22/23 01/06/25 Unknown History magnesium hydroxide 400 mg/5 mL 30 ml PO HS PRN Constipation 11/22/23 01/06/25 Unknown History oral suspension (Milk of Magnesia) omeprazole 20 mg capsule,delayed 20 mg PO DAILY 11/22/23 01/06/25 Unknown History release atorvastatin 80 mg tablet 80 mg PO HS 12/04/23 01/06/25 Unknown History ondansetron 8 mg disintegrating 8 mg PO Q8H 04/13/24 01/06/25 Unknown History tablet allopurinol 100 mg tablet 100 mg PO DAILY 11/15/24 01/06/25 Unknown History amlodipine 5 mg tablet 2.5 mg PO QAM 11/15/24 01/06/25 Unknown History ascorbic acid (vitamin C) 500 mg 500 mg PO BID 11/15/24 01/06/25 Unknown History capsule cholecalciferol (vitamin D3) 125 5,000 unit PO DAILY 11/15/24 01/06/25 Unknown History mcg (5,000 unit) tablet (Vitamin D3) ferrous sulfate 325 mg (65 mg 325 mg PO TID 11/15/24 01/06/25 Unknown History iron) tablet,delayed release folic acid 1 mg tablet 1 mg PO DAILY 11/15/24 01/06/25 Unknown History loratadine 10 mg tablet (Allergy 10 mg PO DAILY 11/15/24 01/06/25 Unknown History Relief (loratadine)) methotrexate sodium 2.5 mg tablet 15 mg PO DAILY 11/15/24 01/06/25 Unknown History potassium chloride 10 mEq 10 meq PO DAILY 11/15/24 01/06/25 Unknown History tablet,extended release spironolactone 25 mg tablet 25 mg PO DAILY 11/15/24 01/06/25 Unknown History acetaminophen 325 mg tablet 650 mg PO Q4H PRN fever or pain 12/14/24 01/06/25 Unknown History cyanocobalamin (vitamin B-12) 1,000 mcg PO DAILY 12/14/24 01/06/25 Unknown History 1,000 mcg capsule dextran 70-hypromellose 0.1 %-0.3 1 drp EACH EYE BID PRN dry eye(s) 12/14/24 01/06/25 Unknown History % eye drops (Artificial Tears (dextran 70-hypromellose)) dextromethorphan-guaifenesin 10 10 ml PO Q6H PRN cough 12/14/24 01/06/25 Unknown History mg-100 mg/5 mL oral liquid (Tussin DM) diclofenac sodium 1 % topical gel 4 g topical BID 12/14/24 01/06/25 Unknown History (Arthritis Pain (diclofenac)) finasteride 5 mg tablet 5 mg PO DAILY 12/14/24 01/06/25 Unknown History fluticasone 250 mcg-salmeterol 50 1 inh inhalation Q12H 12/14/24 01/06/25 Unknown History mcg/dose blistr powdr for inhalation (Advair Diskus) ipratropium 0.5 mg-albuterol 3 mg 3 ml inhalation TID 12/14/24 01/06/25 Unknown History (2.5 mg base)/3 mL nebulization soln magnesium citrate (Citroma oral 296 ml PO DAILY PRN constipation 12/14/24 01/06/25 Unknown History solution) sennosides 8.6 mg-docusate sodium 2 tab-cap PO BID 12/14/24 01/06/25 Unknown History 50 mg tablet (2-in-1 Laxative) sodium phosphates 19 gram-7 118 ml RECTAL DAILY PRN 12/14/24 01/06/25 Unknown History gram/118 mL enema constipation <Emily Law PA-C - Last Filed: 03/01/25 22:40> Allergies/Adverse Reactions: Allergies Allergy/AdvReac Type Severity Reaction Status Date / Time azithromycin Allergy Unknown Unknown Verified 01/06/25 12:40 neomycin Allergy Unknown rash Verified 01/06/25 12:40 Sulfa (Sulfonamide Allergy Unknown Rash Verified 01/06/25 12:40 Antibiotics) castor oil AdvReac Intermediate Nausea and Verified 01/06/25 12:40 Vomiting erythromycin base AdvReac Intermediate SHAKING, Verified 01/06/25 12:40 HEADACHE <Emily Law PA-C - Last Filed: 03/01/25 22:40> Review of Systems Review of Systems: All systems reviewed & are unremarkable except as noted in HPI and below <Emily Law PA-C - Last Filed: 03/01/25 22:40> [facility] Past Medical History Medical History: Medical History Depression with anxiety History of infection due to ESBL Escherichia coli Urinary retention due to benign prostatic hyperplasia Venous stasis dermatitis of both lower extremities Lung nodule Collagenous colitis Chronic indwelling Duron catheter Diastolic dysfunction Echo 01/2022: EF 60 65% Chronic obstructive pulmonary disease Hypothyroidism Benign prostatic hyperplasia Arthritis Degenerative disc disease Renal cell carcinoma of right kidney Status post right nephrectomy. Gastroesophageal reflux disease Silicosis Obstructive sleep apnea Chronic anemia Chronic kidney disease, stage 3 Baseline creatinine ranges between 1.30 and 1.40. Degenerative arthritis of knee, bilateral Chronic lymphocytic leukemia Cognitive impairment Essential hypertension Parkinson disease Primary osteoarthritis of both knees <Emily Law PA-C - Last Filed: 03/01/25 22:40> Surgical History Surgical History: Surgical History Status post open reduction with internal fixation of fracture Right femoral neck fracture History of arthroscopy of right knee History of cholecystectomy History of appendectomy History of repair of left rotator cuff History of cataract extraction History of right nephrectomy (2003) History of back surgery <Emily Law PA-C - Last Filed: 03/01/25 22:40> Family History Family History: Family History Father Family history of liver disease Family history of lung cancer Patient's father is Family history of primary malignant neoplasm of liver Mother Family history of heart disease in male family member before age 55 Patient's mother is Family history of coronary artery disease Acute myocardial infarction Sibling Family history of lung cancer Family history of malignant neoplasm of bone Patient's sister is Patient's brother is Malignant neoplasm of prostate Grandparent Family history of arthritis Other Family history of malignant neoplasm of kidney <Emily Law PA-C - Last Filed: 03/01/25 22:40> Social History Social History: Social History Social History: He is . The patient resides at [facility]. His son lives in the local area. The patient is retired from [employer]. No alcohol, tobacco, or illicit substance. He uses wheelchair for mobility and can stand to pivot. 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 HEAD: Normocephalic, of erythema to the right eyebrow with mild tenderness, crepitus, step-offs or deformities. EYES: PERRLA and EOMI. ENT: Nares clear, no rhinorrhea or epistaxis. Mucous membranes moist. NECK: C-collar in place BACK: No thoracolumbar spinous tenderness, crepitus, step-offs or deformities CHEST: Clear to auscultation. No respiratory distress. No tenderness to chest wall HEART: Regular rate and rhythm. No murmur heard. Normal peripheral pulses. ABDOMEN: Soft, nontender, nondistended, normal active bowel sounds. Duron catheter in place draining clear yellow urine EXTREMITIES: Diffuse tenderness to bilateral knees with no obvious deformity, full active and passive range of motion. Left DP pulse 2 +and easily palpable, right DP pulse diminished but easily dopplered. Extremities are pink, warm and dry with cap refill less than 2 SKIN: 9cm hook shaped skin tear to the lateral left tib/fib with no active bleeding, deep structures or foreign bodies. Patient has full range of motion of ankle and toes. Stage 2 ulceration to right heel with no surrounding erythema, no fluctuance or induration. Stage 1 ulceration to signal with no surrounding erythema or edema NEURO: No focal deficits. Alert and oriented x4. 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 <Radha Osuna MD - Last Filed: 03/02/25 03:36> Vital Signs Vital signs: Vital Signs Temperature 97.4 F L 03/01/25 17:33 Pulse Rate 64 03/01/25 17:33 Respiratory Rate 15 03/01/25 17:33 Blood Pressure 121/75 03/01/25 17:33 Pulse Oximetry 100 03/01/25 17:33 Oxygen Delivery Room Air 03/01/25 17:33 Temperature 98.7 F 03/01/25 22:51 Pulse Rate 71 03/01/25 23:31 Respiratory Rate 23 H 03/01/25 23:31 Blood Pressure 112/70 03/01/25 23:31 Pulse Oximetry 99 03/01/25 23:31 Oxygen Delivery Room Air 03/01/25 17:33 <MARVA Cortez Last Filed: 03/01/25 22:40> Vital Signs Temperature 97.4 F L 03/01/25 17:33 Pulse Rate 64 03/01/25 17:33 Respiratory Rate 15 03/01/25 17:33 Blood Pressure 121/75 03/01/25 17:33 Pulse Oximetry 100 03/01/25 17:33 Oxygen Delivery Room Air 03/01/25 17:33 Temperature 98.7 F 03/01/25 22:51 Pulse Rate 71 03/01/25 23:31 Respiratory Rate 23 H 03/01/25 23:31 Blood Pressure 112/70 03/01/25 23:31 Pulse Oximetry 99 03/01/25 23:31 Oxygen Delivery Room Air 03/01/25 17:33 <Radha Osuna MD - Last Filed: 03/02/25 03:36> Procedures Laceration Laceration 1: Date: 03/01/25 <Emliy Law PA-C - Last Filed: 03/01/25 22:40> Time: 18:09 <MARVA Cortez Last Filed: 03/01/25 22:40> Site: lower extremity <MARVA Cortez Last Filed: 03/01/25 22:40> Side (If applicable): left <MARVA Cortez Last Filed: 03/01/25 22:40> Size (cm): 9 <MARVA Cortez Last Filed: 03/01/25 22:40> Description: irregular <MARVA Cortez Last Filed: 03/01/25 22:40> Depth: simple, single layer <MARVA Cortez Last Filed: 03/01/25 22:40> Pre-repair: wound explored, irrigated and irrigated extensively <MARVA Cortez Last Filed: 03/01/25 22:40> ====== Skin Level ======: Skin layer closed with: steri strips <MARVA Cortez Last Filed: 03/01/25 22:40> ====== Subcutaneous Layer ======: ====== Muscle Layer ======: ====== Tendon Layer ======: MDM - Fall MDM Narrative Medical decision making narrative: 85-year-old male presents to the emergency department via EMS from [facility] for a mechanical fall out of his wheelchair. Patient did hit his head but did not lose consciousness. He is not anticoagulated. Triage vitals are stable. Patient is A&O x4. Exam is notable for the above. Skin tear to the left tib-fib irrigated extensively with normal saline and closed with Steri-Strips. Tetanus updated. CT brain shows no acute intracranial findings. CT cervical spine shows significant degenerative disease without acute fracture. Bilateral knee x-ray showed no acute osseous findings, severe degenerative disease. Right knee does show a moderate suprapatellar joint effusion, on exam patient has no erythema, warmth or remarkable tenderness to this region. No evidence of septic bursitis. X-ray of left tib-fib shows degenerative disease without acute fracture. Patient updated on results and will be discharged back home to [facility]. He was given return precautions and discharged in stable condition. <MARVA Cortez Last Filed: 03/01/25 22:40> Discharge Plan Discharge Clinical Impression: Closed head injury, Skin tear <MARVA Cortez Last Filed: 03/01/25 22:40> Patient Disposition: Home <MARVA Cortez Last Filed: 03/01/25 22:40> Condition: Stable <MARVA Cortez Last Filed: 03/01/25 22:40> Instructions: Antibiotic Form, Head Injury (DC), Skin Tear (ED) <Emily Law PA-C - Last Filed: 03/01/25 22:40> Additional Instructions: You were evaluated in the emergency department after a fall. Your imaging is reassuring. The skin tear was closed with Steri-Strips. Please keep the area clean and dry. Follow-up with your primary care provider. Return to the emergency department if you develop vision changes, focal numbness or weakness, surrounding redness to the skin tear, drainage, fever, or other concerning symptoms. <MARVA Cortez Last Filed: 03/01/25 22:40> Patient Language: Belarusian <MARVA Cortez Last Filed: 03/01/25 22:40> Prescriptions: No Action alendronate 70 mg tablet 70 mg PO WEEKLY Rx Instructions: every friday bisacodyl [Dulcolax (bisacodyl)] 10 mg suppository 10 mg RECTAL DAILY PRN (Reason: Constipation) ondansetron 8 mg tablet,disintegrating 8 mg PO Q8H carbidopa-levodopa [Sinemet] 25-100 mg tablet 3 tablet PO TID Qty: 240 6RF Rx Instructions: May increase to 3 tablets 4 times a day as necessary atorvastatin 80 mg tablet 80 mg PO HS acetaminophen 325 mg tablet 650 mg PO Q4H PRN (Reason: fever or pain) fluticasone propion-salmeterol [Advair Diskus] 250-50 mcg/dose blister with device 1 inh inhalation Q12H Artificial Tears([id number]) 0.1-0.3 % drops 1 drp EACH EYE BID PRN (Reason: dry eye(s)) magnesium citrate [Citroma] Solution 296 ml PO DAILY PRN (Reason: constipation) cyanocobalamin (vitamin B-12) 1,000 mcg capsule 1,000 mcg PO DAILY sodium phosphates 19-7 gram/118 mL enema 118 ml RECTAL DAILY PRN (Reason: constipation) Rx Instructions: INSERT 1 APPLICATION RECTALLY NEEDED FOR CONSTIPATION IF NO RESULTS 1 DAY AFTER SUPPOSITORY dextromethorphan-guaifenesin [Tussin DM] 10-100 mg/5 mL liquid 10 ml PO Q6H PRN (Reason: cough) ipratropium-albuterol 0.5 mg-3 mg(2.5 mg base)/3 mL solution for nebulization 3 ml INHALATION TID diclofenac sodium [Arthritis Pain (diclofenac)] 1 % gel 4 g topical BID Rx Instructions: APPLY TO RIGHT NEED sennosides-docusate sodium [2-in-1 Laxative] 8.6-50 mg tablet 2 tab-cap PO BID Rx Instructions: MAY HOLD FOR SOFT STOOL WITHIN 24 HOURS finasteride 5 mg tablet 5 mg PO DAILY guaifenesin [Mucus Relief ER] 600 mg Tablet Extended Release 12hr 600 mg PO Q12HR Qty: 30 0RF lactulose [Enulose] 10 gram/15 mL solution 30 ml PO DAILY PRN (Reason: Constipation) Qty: 237 0RF hydrocodone-acetaminophen 5-325 mg tablet 1 tablet PO Q8H PRN (Reason: Pain (Scale Score 4-6)) Qty: 6 0RF lidocaine [Lidoderm] 5 % adhesive patch,medicated 1 patch topical DAILY Qty: 15 0RF Patient Comments: APPLY TO LOWER BACK TOPICALLY TWO TIMES A DAY Rx Instructions: leave on most painful area for up to 12 hrs carvedilol 3.125 mg Tablet 3.125 mg PO BID Rx Instructions: must administer with a meal/food magnesium hydroxide [Milk of Magnesia] 400 mg/5 mL Suspension 30 ml PO HS PRN (Reason: Constipation) Rx Instructions: if no BM in three days gabapentin 300 mg Capsule 300 mg PO BID omeprazole 20 mg Capsule,Delayed Release(Dr/Ec) 20 mg PO DAILY furosemide 20 mg Tablet 40 mg PO DAILY allopurinol 100 mg tablet 100 mg PO DAILY methotrexate sodium 2.5 mg tablet 15 mg PO DAILY potassium chloride 10 mEq tablet extended release 10 meq PO DAILY spironolactone 25 mg tablet 25 mg PO DAILY amlodipine 5 mg tablet 2.5 mg PO QAM ferrous sulfate 325 mg (65 mg iron) Tablet,Delayed Release (Dr/Ec) 325 mg PO TID folic acid 1 mg tablet 1 mg PO DAILY cholecalciferol (vitamin D3) [Vitamin D3] 125 mcg (5,000 unit) tablet 5,000 unit PO DAILY ascorbic acid (vitamin C) 500 mg capsule 500 mg PO BID loratadine [Allergy Relief (loratadine)] 10 mg tablet 10 mg PO DAILY polyethylene glycol 3350 [Miralax] 17 gram Powder In Packet 17 g PO QAM Qty: 10 0RF Patient Comments: HOLD FOR LOOSE STOOLS levothyroxine 100 mcg tablet 100 mcg PO DAILY Qty: 90 1RF tamsulosin 0.4 mg capsule 0.8 mg PO DAILY Qty: 180 1RF duloxetine 60 mg capsule,delayed release(DR/EC) 60 mg PO DAILY Qty: 30 1RF albuterol sulfate 90 mcg/actuation HFA aerosol inhaler 1 puff INHALATION Q4H PRN (Reason: shortness of breath or wheezing) Qty: 8.5 1RF <Emily Law PA-C - Last Filed: 03/01/25 22:40> Follow-up/Referrals: Raoul Forbes MD [Primary Care Provider] - <Emily Law PA-C - Last Filed: 03/01/25 22:40>
--- NOTE | 2025-03-01 17:58 | PC.NURSE ---
Pt arrived with urinary catheter in place that had information on it that detailed that it was placed 01/06/25 at 1625 by RUCHI RN. This RN called pt half-way and spoke with Isidra SHERIFF and inquired about how pt catheter had not been changed since inserted. Isidra stated Oh no, I will look into the chart and see what I can find out, then I'll call back . EDP Emily Law made aware
--- OUTSIDE RECORDS SUMMARY | 2025-03-01 18:18 | XMS_ITS | Clinical Summary ---
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 Height 177.8 cm (5' 10 ) 02/03/2024 10:18 AM CDT Body Mass Index 26.26 03/05/2022 11:20 AM CDT Plan of Treatment Health Maintenance Due Date Last Done Comments Influenza Vaccine (Season Ended) 2025 08/16/2022, 08/01/2021, 07/28/2020, Additional history exists Pneumococcal Vaccine: 50+ Years Completed 12/10/2022, 06/04/2019, 01/24/2015 Hepatitis B Vaccine Aged Out No longe r eligible based on patient's age to complete this topic Insurance [address] [id number] Medicaid [place] Medicare Care Teams Television Maintenance Worker Relationship Specialty Start Date End Date Kory Morales MD [address] [place] [address] PCP - General Family Medicine 06/15/24
--- OUTSIDE RECORDS SUMMARY | 2025-03-01 18:18 | XMS_ITS | CONTINUITY OF CARE DOCUMENT ---
Author Name justin anderson Address Unknown Organization [facility] Address [address] [place] [address] [address] [place] [address] Phone [phone] Care Team Providers Care Microstrategy Architect Developer Name Role Phone Chad Ann MD Unavailable [phone] IVÁN KOCH MD Unavailable IVÁN KOCH MD Unavailable [phone] RESULTS Date Observation Value Provider Reference Range [...] urine 1.025 Alfredo Phan urine color Amy [facility] appearance, urine Clear [facility] anion gap, serum 10.1 [facility] globulins, serum, total 3.0 g/dL [facility] estimated glomerular filtration rate 34 mL/min [facility] albumin/globulin ratio, serum 1.3 [facility] protein, total, serum 6.8 g/dL [facility] albumin, serum 3.8 g/dL [facility] bilirubin, serum, total 0.33 mg/dL [facility] alkaline phosphatase, serum 62 1/L [facility] alanine aminotransferase (SGPT), serum 36 1/L [facility] aspartate aminotransferase (SGOT), serum 19 1/L [facility] calcium, serum 9.3 mg/dL [facility] blood glucose, fasting 143 mg/dL [facility] creatinine, serum 2.09 mg/dL [facility] urea nitrogen, blood 39.2 mg/dL [facility] carbon dioxide, serum, total 27 mmol/L [facility] chloride, serum 104 mmol/L [facility] potassium, serum 4.1 mmol/L [facility] sodium, serum 137 mmol/L [facility] platelet count 87 10*3/uL [facility] red blood cell distribution width 13.9 % [facility] mean corpuscular hemoglobin concentration, RBC 34.3 g/dL [facility] mean corpuscular hemoglobin, RBC 29.1 pg [facility] mean corpuscular volume, RBC 84.7 fL [facility] hematocrit, blood 37.0 % [facility] hemoglobin, blood 12.7 g/dL [facility] erythrocyte (RBC) count 4.37 10*6/mm3 Alfredo Phan [...] Payer name Policy type / Coverage type [place] [employer] [place] [employer] Medicaid [id number] [employer] Medicare [id number]
--- OUTSIDE RECORDS SUMMARY | 2025-03-01 18:18 | XMS_ITS | Encounter Summary ---
Author Organization [facility] Address [address] [place] [address] Phone Care Team Providers Care Manager Lpn Name Role Phone Juan Diego Hennessy MD Unavailable [phone] Kale Jiménez MD Primary Care Provider [phone] Joe Smith MD Unavailable [phone] Lucio Pagan APRN, CNP Unavailable [phone] Reason for Visit * Reason Comments Medication Refill Encounter Details Date Type Department Care Team (Late st Contact Info) Description 11/09/2022 Refill [facility] [address] [address] Juan Diego Hennessy MD [address] [place] [address] Medication Refill Social History Tobacco [...] 8:47 AM CST Please refill if appropriate. 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 OFFICER documented in this encounter Plan of Treatment Not on file documented as of this encounter Visit Diagnoses Diagnosis CLL (chronic lymphocytic leukemia) (HCC) Chronic lymphoid leukemia, without mention of having achieved remission documented in this encounter Additional Health Concerns Assessment Noted Time PHQ-9 Depression Total Score: 0 07/26/20 21 9:20 AM CDT documented as of this encounter Care Teams Manager Lpn Relationship Specialty Start Date End Date Kale Jiménez MD [address], [address] [place] [address] PCP - General Internal Medicine 11/03/19 Juan Diego Hennessy MD [address] [place] [phone] Consulting Physician Oncology 11/03/19 Joe Smith MD [address], [address] [place] [address] Nephrology 11/11/19 Lucio Pagan APRN, ACCOUNT ADMINISTRATOR [address] [place] [address] Nurse Practitioner Advanced Practice Nurse 10/06/23 documented as of this encounter
--- OUTSIDE RECORDS SUMMARY | 2025-03-01 18:18 | XMS_ITS | Clinical Summary ---
Author Organization [facility] Address [address] [place] [address] Care Team Providers Care Fishing Vessel Captain Name Role Phone Tania Salas MD Primary Care Provider [phone] Allergies Active Allergy Reactions Criticality Noted Date Comments Codeine Unknown 03/26/2023 Erythromycin Unknown 03/26/2023 Neomycin Unknown 03/26/2023 Medications ondansetron (ZOFRAN-ODT) 4 MG disintegrating tablet Take 1 tablet (4 mg total) by mouth every 8 (eight) hours as needed for Nausea. 20 tablet 3 Active Encounters Date Type Department Care Team Description 01/26/2025 3:28 PM CDT - 01/26/2025 11:59 PM CDT Hospital Encounter [facility] [place] [address] Niurka Reddy FNP Discharge Disposition: Home or Self Care (Routine Discharge) 01/26/2025 Orders Only [place] [address] Niurka Reddy FNP from Last 3 Months Social History Tobacco Use Types Packs/Day Years [...] Health Maintenance Due Date Last Done Comments DTaP, Tdap and Td Vaccines ( 1 - Tdap) 02/10/1959 Pneumococcal Vaccine: 50+ Years (1 of 2 - PCV) 02/10/1959 Annual Medicare Wellness Visit 02/10/2005 RSV Immunization or 60+ Years (1 - 1-dose 75+ series) 02/10/2015 COVID-19 Vaccine (4 - 2023-2 5 season) 2024 10/17/2021, 01/20/2021, 12/28/2020 PHQ-2 (Physician [place]) 10/27/2024 Zoster Vaccines Completed 07/24/2021, 09/15/2020 Meningococcal B Vaccine Aged Out No l onger eligible based on patient's age to complete this topic Meningococcal Vaccine Aged Out No whitney macrina eligible based on patient's age to complete this topic RSV Immunizations Under 20 Months Aged Out No longer eligible b ased on patient's age to complete this topic Procedures Procedure Name Priority Date/Time Associated Diagnosis Comments CBC W/DIFF AUTOMATED Routine 01/26/2025 2:17 PM CDT Acute on chronic diastolic heart failure ([facility]) MAGNESIUM Routine 01/26/2025 2:17 PM CDT Acute on chronic diastolic heart failure ([facility]) PRO-BRAIN NATRIURETIC PEPTIDE Routine 01/26/2025 2:17 PM CDT Acute on chronic diastolic heart failure ([facility]) COMPREHENSIVE METABOLIC PANEL Routine 01/26/2025 2:17 PM CDT Acute on chronic diastolic heart failure (CMS/HCC HHS/HCC) from Last 3 Months Results * (ABNORMAL) PRO-BRAIN NATRIURETIC PEPTIDE (01/26/2025 2:17 PM CDT) PRO-B TYPE NATRIURETIC PEPTIDE 1,079(H) <450 PG/ML 01/26/2025 4:06 PM CDT [facility] Comment: CUT POINTS ESTABLISHED BY INTERNATIONAL COLL[employer]AT[employer] ON NT PROBNP (ICON) STUDY (2006). AGE INDEPENDENT: <300 PG/ML HAS A 99% NEGATIVE PREDICTIVE VALUE FOR EXCLUDING ACUTE CHF <50 YEARS: >450 PG/ML IS CONSISTENT WITH ACUTE CHF 50-75 YEARS: >900 PG/ML IS CONSISTENT WITH ACUTE CHF >75 YEARS: >1800 PG/ML IS CONSISTENT WITH ACUTE CHF IN PATIENTS WITH RENAL INSUFFICIENCY (GFR <60), >1200 PG/ML YIELDS A DIAGNOSTIC SENSITIVITY AND SPECIFICITY OF 89% AND 72% FOR ACUTE CHF. 01/26/2025 2:17 PM CDT Niurka Reddy [facility] Final Result [facility] [address] [place] [address], [place] [phone] * (ABNORMAL) COMPREHENSIVE METABOLIC PANEL (01/26/2025 2:17 PM CDT) GLUCOSE 178(H) 70 - 99 MG/DL 01/26/2025 4:06 PM CDT [facility] BUN 13 7 - 18 MG/DL 01/26/2025 4:06 PM CDT [facility] CREATININE S/P/B 1.03 0.7 - 1.3 MG/DL 01/26/2025 4:06 PM CDT [facility] SODIUM S/P/B 129(L) 136 - 145 MMOL/L 01/26/2025 4:06 PM CDT [facility] POTASSIUM S/P/B 3.2(L) 3.5 - 5.1 MMOL/L 01/26/2025 4:06 PM T [facility] CHLORIDE S/P/B 94(L) 97 - 115 MMOL/L 01/26/2025 4:06 PM CDT [facility] CO2 22.6 21 - 32 MMOL/L 01/26/2025 4:06 PM T [facility] CALCIUM S/P/B 9.2 8.5 - 10.1 MG/DL 01/26/2025 4:06 PM T [facility] BILIRUBIN TOTAL S/P/B 0.5 0.2 - 1.2 MG/DL 01/26/2025 4:06 PM T [facility] Comment: THIS ASSAY IS NOT RECOMMENDED FOR PATIENTS UNDERGOING TREATMENT WITH ELTROMBOPAG DUE TO THE POTENTIAL FOR FALSELY ELEVATED RESULTS. TOTAL PROTEIN S/P/B 7.3 6.4 - 8.2 G/DL 01/26/2025 4:06 PM T [facility] ALBUMIN S/P/B 2.6(L) 3.4 - 5.0 G/DL 01/26/2025 4:06 PM T [facility] AST 14(L) 15 - 37 U/L 01/26/2025 4:06 PM T [facility] ALT <6(L) 16 - 60 U/L 01/26/2025 4:06 PM T [facility] ALKALINE PHOSPHATASE S/P/B 82 50 - 136 U/L 01/26/2025 4:06 PM T [facility] ANION GAP 12.4(H) 2 - 10 MMOL/L 01/26/2025 4:06 PM T [facility] BUN CREATININE RATIO 12.6 6 - 26 01/26/2025 4:06 PM CDT [facility] A/G RATIO 0.6(L) 1.0 - 2.0 RATIO 01/26/2025 4:06 PM CDT [facility] GFR ESTIMATE 72(L) >90 ML/MIN/1.7 3 M2 01/26/2025 4:06 PM CDT [facility] Comment: NOTE: eGFR is not calculated for patients <18 years of age or gender unknown. This is an estimated GFR calculation using the new CKD EPI creatinine equation without race and so does not require a correction factor for race. This estimated GFR should not be used for calculating drug doses. 01/26/2025 2:17 PM CDT Niurka Reddy [facility] Final Result [facility] [address] [place] [address], [place] [phone] * (ABNORMAL) CBC W/DIFF AUTOMATED (01/26/2025 2:17 PM CDT) WBC 11.11(H) 4.5 - 11.0 x10'3/uL 01/26/2025 3:49 PM CDT [facility] RBC 3.86(L) 4.70 - 6.10 x10'6/uL 01/26/2025 3:49 PM CDT [facility] HGB 10.6(L) 14.0 - 18.0 G/DL 01/26/2025 3:49 PM CDT [facility] HCT 34.0(L) 43.0 - 54.0 % 01/26/2025 3:49 PM CDT [facility] MCV 88.1 80.0 - 94.0 FL 01/26/2025 3:49 PM CDT [facility] MCH 27.5 27.0 - 31.0 PG 01/26/2025 3:49 PM CDT [facility] MCHC 31.2(L) 32.0 - 36.0 G/DL 01/26/2025 3:49 PM CDT [facility] RDW 17.2(H) 11.5 - 14.5 % 01/26/2025 3:49 PM CDT [facility] PLT 316 130 - 400 x10'3/uL 01/26/2025 3:49 PM CDT [facility] MPV 10.5 9.3 - 12.2 FL 01/26/2025 3:49 PM CDT [facility] DIFFERENTIAL TYPE MANUAL DIFFERENTIAL 01/26/2025 4:31 PM CDT [facility] SEG NEUTROPHILS 63 % 4:31 PM CDT [facility] LYMPHOCYTES 27 % 01/26/2025 4:31 PM CDT [facility] MONOCYTES 6 % 01/26/2025 4:31 PM CDT [facility] EOSINOPHILS 4 % 01/26/2025 4:31 PM CDT [facility] ABS. NEUTROPHILS 7.00 1.80 - 7.70 x10'3/uL 01/26/2025 4:31 PM CDT [facility] ABS. LYMPHOCYTES 3.00 1.00 - 4.80 x10'3/uL 01/26/2025 4:31 PM CDT [facility] ABS. MONOCYTES 0.67 0.30 - 0.82 x10'3/uL 01/26/2025 4:31 PM CDT [facility] ABS. EOSINOPHILS 0.44 0.04 - 0.54 x10'3/uL 01/26/2025 4:31 PM CDT [facility] RBC MORPHOLOGY SLIDE REVIEWED 2024 4:31 PM CDT [facility] POIKLO 1+ 01/26/2025 4:31 PM CDT [facility] ENEIDA 1+ 01/26/2025 4:31 PM CDT [facility] PLT EST. ADEQUATE 01/26/2025 4:31 PM CDT [facility] 01/26/2025 2:17 PM CDT [facility] FNP [facility] Final Result [facility] [address] [place] [address], [place] [phone] * MAGNESIUM (01/26/2025 2:17 PM CDT) MAGNESIUM 1.9 1.8 - 2.4 MG/DL 01/26/2025 4:06 PM CDT [facility] 01/26/2025 2:17 PM CDT [facility] Final Result [facility] [address] [place] [address], [place] [phone] from Last 3 Months Insurance MEDICAID MED REPLACE [employer] Care Teams Fishing Vessel Captain Relationship Specialty Start Date End Date Tania Salas MD [place], [place] [id number] PCP - General INTERNAL MEDICINE 03/26/23
--- OUTSIDE RECORDS SUMMARY | 2025-03-01 18:19 | XMS_ITS | Encounter Summary ---
Author Organization [facility] Address [address] [place] [address] Phone Care Team Providers Care Mechanic Helper Name Role Phone Juan Diego Hennessy MD Unavailable [phone] Kale Jiménez MD Primary Care Provider [phone] Joe Smith MD Unavailable [phone] Lucio Pagan APRN, CNP Unavailable + [phone] Reason for Visit * Reason Comments Medication Refill Encounter Details Date Type Department Care Team (Late st Contact Info) Description 05/26/2021 Refill [facility] [address] [place] [address] Juan Diego Hennessy MD [address] [place] [address] Medication Refill Social History Tobacco [...] documented as of this encounter Care Teams Mechanic Helper Relationship Specialty Start Date End Date Kale Jiménez MD [address], [address] [place] [address] PCP - General Internal Medicine 11/03/19 Juan Diego Hennessy MD [address] [place] [phone] Consulting Physician Oncology 11/03/19 Joe Smith MD [address], [address] [place] [address] Nephrology 11/11/19 Lucio Pagan APRN, PARAPROFESSIONAL INTERPRETER [address] [place] [address] Nurse Practitioner Advanced Practice Nurse 10/06/23 documented as of this encounter
--- OUTSIDE RECORDS SUMMARY | 2025-03-01 18:19 | XMS_ITS | Encounter Summary ---
Author Organization [facility] Address [address] [place] [address] Care Team Providers Care Agricultural Consultant Name Role Phone Ebony WILLARD MD, Devante Unavailable [phone] Steven Queen DO Primary Care Provider [phone] Encounter Details Date Type Department Care Team (Late st Contact Info) Description 04/05/2022 [facility] Outpatient Visit [facility] Orthopedics - Radiology [address] [place] [address] Document, Scanned Social History Tobacco Use Types Packs/Day Years Used Date Smoking Tobacco: Never Smokeless Tobacco: Never Alcohol Use Standard Drinks/Week Comments Not Currently 0 (1 standard drink = 0.6 oz pur e alcohol) Sex and Gender Information Value Date Recorded Sex Assigned at Not on file Legal Sex Male 11:51 AM CDT Gender Identity Not on file Sexual Orientation Not on file documented as of this encounter Plan of Treatment Not on file documented as of this encounter Visit Diagnoses Not on filedocumented in this encounter Care Teams Agricultural Consultant Relationship Specialty Start Date End Date Steven Queen DO [address] [place] [address] PCP - General Internal Medicine 06/14/22 [place] [address] [address] Orthopedic Surgery 06/14/22 documented as of this encounter
--- OUTSIDE RECORDS SUMMARY | 2025-03-01 18:19 | XMS_ITS | Clinical Summary ---
Author Organization [facility] Address [address] [place] [address] Care Team Providers Care Digital Printer Operator Name Role Phone Ebony WILLARD MD, Devante Unavailable [phone] Steven Queen DO Primary Care Provider [phone] Source Comments [facility],non-owned Affiliates and Associated Physician Practices is amultiple site organization consisting of ambulatory clinics and hospital sitesin [place], [place], [place] and [place]. This disclosure is being madepursuant to the Care Everywhere program and may not contain all information available regarding this patient. Last updated 18.[facility] Allergies Active Allergy Reactions Criticality Noted Date Comments [place] Oil Nausea and/or Vomiting,Other High 02/18/2019 Reaction: unknown, shakes Codeine Nausea and/or Vomiting 02/18/2019 shakes Erythromycin Nausea and/or Vomiting,Other 02/18/2019 Reaction: Unknown, shakes Fish Oil Other 05/18/2020 Neomycin Headache 02/03/2017 Medications * Be aware that medications may not be up to date on this document. Alwaysverify current medications with the patient. DULoxetine (Cymbalta) 60 MG capsule Take 1 (one) capsule by mouth once daily Active trospium (Sanctura) 20 MG tablet Take 1 (one) tablet by mouth 2 times daily Active amLODIPine (Norvasc) 5 MG tablet Take 1 (one) tablet by mouth once daily Active hydroCHLOROthiaz winifred (Microzide) 12.5 MG capsule Take 1 (one) capsule by mouth once daily Active oxyCODONE, immediate release, (Roxicodone) 5 MG tabletIndication s:Fall, initial encounter Take 1 (one) tablet by mouth every 4 hours as needed 12 tablet 03/21/20 Active Additional Information Patient not taking.Reported on 04/02/2024 acetaminophen (Tylenol) 500 MG tablet Take 1 (one) tablet by mouth every 4 hours as needed for Fever, Pain or Headache Maximum allowable Acetaminophen amount = 4 Grams (4000 mg) / 24 hours. 03/21/20 Active ibuprofen (Motrin) 400 MG tablet Take 1 (one) tablet by mouth every 4 hours as needed 03/21/20 Active Additional Information Patient not taking.Reported on 04/02/2024 albuterol HFA (Proventil; Ventolin; Proair) 108 (90 Base) MCG/ACT inhaler Inhale 2 (two) puffs by mouth every 4 hours as needed for Shortness of Breath or Wheezing 03/21/20 Active budesonide-formo terol (Symbicort) 160-4.5 MCG/ACT inhaler Inhale 2 (two) puffs by mouth 2 times daily 03/21/20 Active tiotropium (Spiriva Respimat) 2.5 MCG/ACT inhaler Inhale 2 (two) puffs by mouth once daily 03/21/20 Active Additional Information Patient not taking.Reported on 04/02/2024 gabapentin (Neurontin) 400 MG capsule Take 1 (one) capsule by mouth 3 times daily 03/21/20 Active atorvastatin (Lipitor) 80 MG tablet Take 1 (one) tablet by mouth at bedtime 03/21/20 Active diclofenac sodium (Voltaren) 1 % gel Apply 2 (two) g to affected area 4 times daily 03/21/20 Active Additional Information Patient not taking.Reported on 04/02/2024 bisacodyl (Dulcolax) 10 MG suppository Insert 1 (one) suppository into the rectum once daily as needed for Constipation 03/21/20 Active polyethylene glycol 3350 (Miralax) 17 g packet Take 17 (seventeen) g by mouth 2 times daily 03/21/20 Active Additional Information Patient not taking.Reported on 04/02/2024 polyethylene glycol 3350 (Miralax) 17 g packet Take 17 (seventeen) g by mouth once daily as needed for Constipation 03/21/20 Active Additional Information Patient not taking.Reported on 04/02/2024 senna (Senokot) 8.6 MG tablet Take 1 (one) tablet by mouth once daily 03/21/20 23 Active Additional Information Patient not taking.Reported on 04/02/2024 calcium-vitamin D (Os-Taj 500 + D) 500-200 mg-unit tablet Take 1 (one) tablet by mouth 2 times daily with morning and evening meal 03/21/20 23 Active Additional Information Patient not taking.Reported on 04/02/2024 alendronate (Fosamax) 70 MG tablet Take 1 (one) tablet by mouth every 7 days before meal Take in morning with full glass of water on empty stomach and remain upright for 30 min 03/24/20 23 Active Additional Information Patient not taking.Reported on 04/02/2024 finasteride (Proscar) 5 MG tablet Take 1 (one) tablet by mouth once daily 03/21/20 23 Active tamsulosin (Flomax) 0.4 MG capsule Take 2 (two) capsules by mouth once daily At the same time every day after a meal. 03/21/20 23 Active simethicone (Mylicon) 80 MG chew tablet Take 1 (one) tablet by mouth 4 times daily as needed for Gas Pain 03/21/20 23 Active Additional Information Patient not taking.Reported on 04/02/2024 levothyroxine (Synthroid) 100 MCG tablet Take 1 (one) tablet by mouth once daily 03/22/20 23 Active pantoprazole EC (Protonix) 40 MG tablet Take 1 (one) tablet by mouth once daily 03/21/20 23 Active Additional Information Patient not taking.Reported on 04/02/2024 budesonide (Entocort EC) 3 MG capsule TAKE 2 CAPSULES DAILY IN THE MORNING Active cephalexin (Keflex) 500 MG capsule 09/07/20 22 Active hydrocortisone (Hytone) 2.5 % cream APPLY TOPICALLY TO THE AFFECTED AREA TWICE DAILY NEEDED FOR RASH 01/12/20 23 Active levothyroxine (Synthroid) 100 MCG tablet TAKE 1 TABLET(100 MCG) BY MOUTH 1 TIME EACH DAY 01/31/20 23 Active meloxicam (Mobic) 7.5 MG tablet Active methocarbamol (Robaxin) 500 MG tablet Active naproxen (Naprosyn) 500 MG tablet Take 1 (one) tablet by mouth 2 times daily with morning and evening meal 12/07/19 22 Active omeprazole (PriLOSEC) 40 MG capsule Take 1 (one) capsule by mouth once daily 30 capsule 11 02/04/20 23 Active ondansetron, disintegrating, (Zofran ODT) 4 MG tablet Take 1 (one) tablet by mouth every 8 hours as needed 03/27/20 23 Active sertraline (Zoloft) 50 MG tablet 07/22/20 22 Active Anoro Ellipta 62.5-25 MCG/ACT inhaler 04/30/20 23 Active carbidopa-levodo pa (Sinemet) 25-250 MG tabletIndication s:Secondary parkinsonism, unspecified secondary Parkinsonism type (HCC) Take 1 (one) tablet by mouth 3 times daily 90 tablet 11 08/26/20 23 Active Active Problems Problem Noted Date Diagnosed [...] medical care, and heating? Somewhat hard 02/20/2023 [facility] - Occupational Stress [...] place to sleep or slept in a retirement (including now)? No 02/20/2023 Sex and Gender [...] - 1-dose 75+ series) 02/10/2015 COVID-19 VACCINE ( season) 2024 10/17/2021, 10/13/2021, 01/20/2021, Additional history exists DEPRESSION SCREENING 10/27/2024 INFLUENZA VACCINE (Season Ended) 2025 02/20/2023, 08/16/2022, 08/01/2021, Additional history exists HEPATITIS B VACCINE Aged Out No longe [...] this topic Medical Devices Implanted Type Area Steam Plant Records Clerk Device Identifier Shelf Expiration Date Model / Serial / Lot Lag Screw 100mm Implanted:Qty: 1 on 02/20/2023 at [facility] 280.301 / / 280.301 Screw 4.5mm 8mm 46mm 3.5mm Slf-Tap Lg Implanted:Qty: 1 on 02/20/2023 at [facility] [employer] [facility] 214.846 / / Screw 4.5mm 8mm 40mm 3.5mm Slf-Tap Lg Implanted:Qty: 1 on 02/20/2023 at [facility] [employer] [facility] 214.840 / / Screw 36mm Hip Cndrl Comp Dhs Dcs Ss Implanted:Qty: 1 on 02/20/2023 at [facility] 280.990 / / Plate 2 Hl Lopro Comp Hip Cndrl 46x19 Implanted:Qty: 1 on 02/20/2023 at [facility] 281.021S / / Explanted Type Area Steam Plant Records Clerk Device Identifier Shelf Expiration Date Model / Serial / Lot Screw 12.7mm 8mm 2.7mm 95mm Hip Cndrl Explanted:Qty: 1 on 02/20/2023 at [facility] 280.295S / / Insurance MEDICAID - [place] MEDIC[place] MEDICAID [employer] [place] MEDICARE SELF PAY NO INSURANCE Member Subscriber Plan / Payer (Ef fective for All Dates) Name:Blanca Metcalf Member ID:Not on file Relation to Subscriber:Not on file Name:BLANCA METCALF Subscriber ID:Not on file (Home) Address: [address] [place] [address] Payer ID:Not on file Group ID:Not on file Type:Self Pay Address: [place], [place] MEDICARE MEDICARE Advance Directives * Full Code (Latest Code Status on File) Date Activated Date Inactivated Comments 02/19/2023 9:26 PM 03/21/2023 3:00 PM Care Teams Digital Printer Operator Relationship Specialty Start Date End Date Steven Queen DO [address] [place] [address] PCP - General Internal Medicine 06/14/22 [place] [address] [place] [address] Orthopedic Surgery 06/14/22
--- OUTSIDE RECORDS SUMMARY | 2025-03-01 18:19 | XMS_ITS | Clinical Summary ---
Author Organization [facility] Address [address], [facility] [address] [place] [address] Phone Care Team Providers Care Gambling Monitor Name Role Phone Juan Diego Hennessy MD Unavailable [phone] Kale Jiménez MD Primary Care Provider [phone] Joe Smith MD Unavailable [phone] Lucio Pagan APRN, COMBAT SYSTEMS OPERATOR Unavailable [phone] Allergies Active Allergy Reactions Criticality Noted Date Comments Salt[place] Oil Nausea High 02/18/2019 shakes Codeine Nausea [...] Type Department Care Team Description 12/06/2024 Travel from Last 3 Months Immunizations Immunization [...] Comments Blood Pressure 133/89 11/30/2024 11:01 AM CERTIFIED MASTER SAFECRACKER Pulse 76 11/30/2024 11:01 AM CERTIFIED MASTER SAFECRACKER Temperature 36.8 C (98.2 F) 10/06/2023 2:17 PM CERTIFIED MASTER SAFECRACKER Respiratory Rate 18 11/30/2024 11:01 AM CERTIFIED MASTER SAFECRACKER Oxygen Saturation 94% 11/30/2024 11:01 AM CERTIFIED MASTER SAFECRACKER Inhaled Oxygen Concentration - - Weight 77.6 kg (171 lb) 11/30/2024 11:01 AM CERTIFIED MASTER SAFECRACKER Height 177.8 cm (5' 10 ) 11/30/2024 11:01 AM CERTIFIED MASTER SAFECRACKER Body Mass Index 24.54 11/30/2024 11:01 AM CERTIFIED MASTER SAFECRACKER Plan of Treatment Health Maintenance Due Date Last Done Comments Hepatitis C Virus (HCV) Screening 1940 TdaP Immunization 1940 Respiratory Syncytial Virus (RSV) Immunization (Adult) (1 - 1-dose 75+ series) 02/10/2015 Influenza Immunization (#1) 06/27/202401/26, 08/16/2022, 08/01/2021, Additional history exists SARS-COV-2 Immunization ( season) [...] patient's [place] [id number] MEDICAID [place] Advance Directives Documents on File Type Date Recorded Patient Pot Maker Expl anation Power of Assistant Plant Controller for Health Care 06/05/2023 11:07 AM POA 06/05/23 Care Teams Gambling Monitor Relationship Specialty Start Date End Date Kale Jiménez MD [address], [address] [place] [address] PCP - General Internal Medicine 11/03/19 Juan Diego Hennessy MD [address] [place] [phone] Consulting Physician Oncology 11/03/19 Joe Smith MD [address], [address] [place] [address] Nephrology 11/11/19 Lucio Pagan, PHARMACIST TECHNICIAN, COMBAT SYSTEMS OPERATOR [address] [place] [address] Nurse Practitioner Advanced Practice Nurse 10/06/23
[2025-03-01] MEDS: TETANUS,DIPHTHERIA,AC PERTUSSIS ADULT (0.5 ML) BOOSTRIX IM (18:48)
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
--- NOTE | 2025-03-01 21:53 | PC.NURSE ---
Pt requesting us to contact Granddashellie Mosquera at [phone]. Eveline updated - will see her grandpa on .
[2025-03-01] MEDS: ACETAMINOPHEN 325 MG TABLET 650 MG PO (22:37)
--- NOTE | 2025-03-01 23:49 | PC.NURSE ---
report to [facility] ems. pt transferred to their stretcher, no distress noted. $1 in change in biobag placed on stretcher with pt.
== END 2025-03-01 23:50 | disposition home or self-care (01) ==
PROVIDERS: Emergency Provider Physician Assistant; PCP Family Medicine
DX: S09.90XA Unspecified injury of head, initial encounter (principal); S81.812A Laceration without foreign body, left lower leg, initial encounter; F32.A Depression, unspecified; F41.9 Anxiety disorder, unspecified; J44.9 Chronic obstructive pulmonary disease, unspecified; I50.9 Heart failure, unspecified; E03.9 Hypothyroidism, unspecified; M19.90 Unspecified osteoarthritis, unspecified site; G47.30 Sleep apnea, unspecified; D64.9 Anemia, unspecified; I13.0 Hypertensive heart and chronic kidney disease with heart failure and stage 1 through stage 4 chronic kidney disease, or unspecified chronic kidney disease; N18.30 Chronic kidney disease, stage 3 unspecified; G20.A1 Parkinson's disease without dyskinesia, without mention of fluctuations; W05.0XXA Fall from non-moving wheelchair, initial encounter; Z23 Encounter for immunization
CPT/HCPCS: 51702; 70450; 72125; 73560; 73562; 73590; 90471; 90715; 99284; A9270

== ENCOUNTER 2025-03-18 13:23 | Emergency (ER) | payer MEDICARE, MEDICAID, SELFPAY ==
[2025-03-18] VITALS (46 sets, daily range): BP systolic 88–128; BP diastolic 59–104; PULSE 57–89; RESP 14–36; TEMP 36.7–36.8; O2SAT 77–99
--- NOTE | ~2025-03-18 | CT_ITS ---
CT abdomen pelvis w con Ordering provider: Garry Burnham History: 85 years Male with . vomiting, epigastric discomfort . Comparison: None. Technique: CT abdomen and pelvis with IV and without oral contrast. Automated exposure control and it erative reconstruction technique were employed. The dose-length product was 691.06 mGy-cm. 100 mL Omn ipaque 350 was given IV. Findings: VISUALIZED LOWER CHEST: Minimal right pleural effusion. Bilateral dependent atelectatic changes. Focal area of atelectasis versus pneumonia with possibility of a nodule is seen in the right upper lo be posteriorly partially imaged in the first image. Follow-up advised. Minimal pericardial effusion p osteriorly. UPPER ABDOMINAL ORGANS: Liver: Borderline hepatomegaly. Gallbladder: Status post cholecystectomy. Spleen: Normal. Stomach/duodenum: Normal. Pancreas: Normal. Adrenals: Normal. Kidneys: Tiny cyst in the left kidney midpole medially. Cyst is seen in the left kidney lower pole me asuring 2.1 cm. Status post right nephrectomy. PELVIC ORGANS: The bladder is underfilled with thickened wall. Evaluation for cystitis advised. Duron 's catheter seen in the bladder. BOWEL AND MESENTERY: Colon: No evidence of diverticulitis. Minimal fat stranding seen in the presacral area which may katelyn paxton proctitis. Clinical correlation advised.. Appendix is not demonstrated. Small Bowel: Normal. No obstruction. Peritoneum/mesentery: No free air or free fluid. No mesenteric lymphadenopathy. RETROPERITONEUM: Moderate atheromatous disease of the abdominal aorta. Retroaortic left renal vein. No retroperitoneal lymphadenopathy. MUSCULOSKELETAL: Superficial soft tissues: The superficial soft tissues are normal. Bones: Age appropriate degenerative changes of the spine. Left hip severe osteoarthritic changes. Pos toperative changes in the right femoral neck. No IMPRESSION: 1. No evidence of appendicitis, diverticulitis or intestinal obstruction. 2. Minimal atelectatic changes in the lung bases with minimal right pleural effusion. 3. Focal atelectatic area in the right lung upper follow-up advised. 4. Fat stranding in the presacral area. Possibility of proctitis is not excluded. Clinical correlati on advised. 5. Status post right nephrectomy. Reviewed, dictated and finalized at location A. IMPRESSION: 1. No evidence of appendicitis, diverticulitis or intestinal obstruction. 2. Minimal atelectatic changes in the lung bases with minimal right pleural ef fusion. 3. Focal atelectatic area in the right lung upper follow-up advised. 4. Fat stranding in the presacral area. Possibility of proctitis is not exclud ed. Clinical correlation advised. 5. Status post right nephrectomy.
--- OUTSIDE RECORDS SUMMARY | 2025-03-18 13:39 | XMS_ITS | Continuity of Care Document ---
Author Organization [facility] Address [address] [place] [address] Phone Care Team Providers Care Proration Clerk Name Role Phone Hungarian Raj LANE Unavailable Unavailable Allergies, Adverse Reactions, [...] needed 1 MG - Active Faxed to [facility] [phone] TAMSULOSIN HCL 0.4 MG CAPSULE TAKE ONE [...] Diagnoses Date Provider Providers Copied on Encounter [facility], [address], [place], [place], [id number] , tel: [phone] [place] No Information 0 English Anthony. [address] [place] [address], [id number] , [place]. tel: [phone] [facility], [address], [place], [place], [address] , tel: [phone] [place] No Information 9 English Anthony. [address] [place] [address], [id number] , [place]. tel: [phone] [facility], [address], [place], [place], [address] , [place] tel: [phone] [place] Benign prostatic hyperplasia, unspecified whether lower urinary tract symptoms present 9 English Anthony. [place], [address] , [place]. tel: [phone] [facility], [address], [place], [place], [address] , [place] tel: [phone] [place] OAB (overactive bladder)Thrombocytope niaBenign prostatic hyperplasia, unspecified whether lower urinary tract symptoms present 9 English Anthony. [place], [address] , [place]. tel: [phone] Referring Provider: [place], [address] . tel:[phone] [facility], [address], [place], [place], [address] , tel: [phone] [place] No Information 9 English Anthony. [place], [address] , [place]. tel: [phone] [facility], [address], [place], [place], [address] , tel: [phone] Sally Abnormal CBC Oct- 9 English Anthony. [place], [address] , [place]. tel: [phone] [facility], [address], [place], [place], [address] , tel: [phone] Sally No Information 8 English Anthony. [place], [address] , [place]. tel: [phone] [facility], [address], [place], [place], [address] , tel: [phone] Sally Leukocytosis, unspecified type 8 English Anthony. [place], [address] , . tel: [phone] Referring Provider: [place], [address] . tel:[phone] [facility], [address], [place], [place], [address] , tel: [phone] Sally No Information 8 English Anthony. [address] [place], [address] , . tel: [phone] [facility], [address], [place], [place], [address] , tel: [phone] Sally Pulmonary emphysema, unspecified emphysema typeHypertensive kidney disease, stage 1-4 or unspecified chronic kidney diseaseSecondary hyperparathyroidism (of renal origin)Current mild episode of major depressive disorder without prior episode 8 English Anthony. [address] [place] [address], [id number] , . tel: [phone] Referring Provider: [place], [address] . tel:[phone] [facility], [address], [place], [place], [address] , tel: [phone] Sally Diarrhea, unspecifie d type 8 English Anthony. [place], [address] , . tel: [phone] [facility], [address], [place], [place], [address] , tel: [phone] [place] Aortic ectasia, unspecified siteChronic silicosisHypothyroidi sm, unspecified typeHypertensive kidney disease, stage 1-4 or unspecified chronic kidney diseasePulmonary emphysema, unspecified emphysema typeAsymptomatic carotid artery stenosis, unspecified lateralityGeneralized anxiety disorderParkinson's diseaseBody mass index (BMI) 26.0-26.9, adult 8 English Anthony. [place], [address] , . tel: [phone] Referring Provider: [place], [address] . tel:[phone] [facility], [address], [place], [place], [address] , tel: [phone] Sally No Information 8 English Anthony. [place], [address] , [place]. tel: [phone] [facility], [address], [place], [place], [address] , tel: [phone] [place] Gastroesophageal reflux disease without esophagitisThrombocyt openiaFacet arthropathy, cervicalParkinson's diseaseRecurrent major depressive disorder, in partial remission 8 English Anthony. [place], [address] , . tel: [phone] Referring Provider: [place], [address] . tel:[phone] [facility], [address], [place], [place], [address] , tel: [phone] Sally No Information 8 English Anthony. [place], [address] , [place]. tel: [phone] [facility], [address], [place], [place], [address] , tel: [phone] [place] MARVIN (obstructive sleep apnea) 7 English John. [place], [address] , [place]. tel: [phone] [facility], [address], [place], [place], [address] , tel: [phone] [place] Pulmonary emphysema, unspecified emphysema typeOSA (obstructive sleep apnea) 7 English John. [place], [address] , [place]. tel: [phone] [facility], [address], [place], [place], [address] , tel: [phone] [place] Numbness in both handsVitiligo Jun- 7 English Anthony. [place], [address] , . tel: [phone] Referring Provider: [place], [address] . tel:[phone] [facility], [address], [place], [place], [address] , tel: [phone] [place] Atherosclerosis of aortaAortic ectasia, unspecified siteOther chronic painBenign non-nodular prostatic hyperplasia without lower urinary tract symptomsLong term current use of opiate analgesic English Anthony. [place], [address] , [place]. tel: [phone] Referring Provider: [place], [address] . tel:[phone] [facility], [address], [place], [place], [address] , tel: [phone] [place] Pain of right upper extremityOther chronic pain English Anthony. [place], [address] , [place]. tel: [phone] Referring Provider: [place], [address] . tel:[phone] [facility], [address], [place], [place], [address] , tel: [phone] [place] Gastrointestinal hemorrhage associated with intestinal diverticulosisIron deficiency anemia due to chronic blood lossChronic constipation English Anthony. [place], [address] , [place]. tel: [phone] Referring Provider: [place], [address] . tel:[phone] [facility], [address], [place], [place], [address] , tel: [phone] [place] Rib pain on left side English Anthony. [place], [address] , . tel: [phone] Referring Provider: [place], [address] . tel:[phone] [facility], [address], [place], [place], [address] , tel: [phone] Sally Parkinson's disease English Anthony. [place], [address] , [place]. tel: [phone] [facility], [address], [place], [place], [address] , [place] tel: [phone] Sally Rib pain on left side Hungarian Raj. [place], [address] , [place]. tel: [phone] [facility], [address], [place], [place], [address] , [place] tel: [phone] Sally No Information English Anthony. [place], [address] , [place]. tel: [phone] [facility], [address], [place], [place], [address] , tel: [phone] Sally Shoulder impingement , rightVenous insufficiencyHyperten sive kidney disease, stage 1-4 or unspecified chronic kidney diseasePulmonary emphysema, unspecified emphysema type English Anthony. [place], [address] , [place]. tel: [phone] Referring Provider: [place], [address] . tel:[phone] [facility], [address], [place], [place], [address] , tel: [phone] Sally NeuropathyParkinson diseaseGeneralized anxiety disorderRecurrent major depressive disorder, in partial remissionHx of malignant neoplasm of kidneyHx of unilateral nephrectomyHypothyroi dism, unspecified typeEssential hypertensionChronic silicosisOveractive bladderBenign non-nodular prostatic hyperplasia without lower urinary tract symptomsOther vitamin B12 deficiency anemiaLeft leg swellingOSA (obstructive sleep apnea)Chronic pain due to traumaEncounter for long-term (current) use of other medicationsScreening for lipoid disorders 0 7 English Anthony. [address] [place], [address] , [place]. tel:[phone] Referring Provider: Raj Vazquez, [address] [place], [address] . tel:[phone] Family History Family Member Type Diagnosis Age [...] Immunizations Vaccine Date Status Comments Fluzone High-Dose [id number], high dose, preservative free administered Source: Source U nspecified Payers Payer name Insurance type Covered democrat [...]
--- OUTSIDE RECORDS SUMMARY | 2025-03-18 13:39 | XMS_ITS | CONTINUITY OF CARE DOCUMENT ---
Author Name justin anderson Address Unknown Organization [facility] Address [address] [place] [address] [address] [place] [address] Phone [phone] Care Team Providers Care Parking Officer Name Role Phone Chad Ann MD Unavailable IVÁN KOCH MD Unavailable IVÁN KOCH MD [...] urine 1.025 Alfredo Phan urine color Amy [facility] appearance, urine Clear [facility] anion gap, serum 10.1 [facility] globulins, serum, total 3.0 g/dL [facility] estimated glomerular filtration rate 34 mL/min [facility] albumin/globulin ratio, serum 1.3 [facility] protein, total, serum 6.8 g/dL [facility] albumin, serum 3.8 g/dL [facility] bilirubin, serum, total 0.33 mg/dL [facility] alkaline phosphatase, serum 62 1/L [facility] alanine aminotransferase (SGPT), serum 36 1/L [facility] aspartate aminotransferase (SGOT), serum 19 1/L [facility] calcium, serum 9.3 mg/dL [facility] blood glucose, fasting 143 mg/dL [facility] creatinine, serum 2.09 mg/dL [facility] urea nitrogen, blood 39.2 mg/dL [facility] carbon dioxide, serum, total 27 mmol/L [facility] chloride, serum 104 mmol/L [facility] potassium, serum 4.1 mmol/L [facility] sodium, serum 137 mmol/L [facility] platelet count 87 10*3/uL [facility] red blood cell distribution width 13.9 % [facility] mean corpuscular hemoglobin concentration, RBC 34.3 g/dL [facility] mean corpuscular hemoglobin, RBC 29.1 pg [facility] mean corpuscular volume, RBC 84.7 fL [facility] hematocrit, blood 37.0 % [facility] hemoglobin, blood 12.7 g/dL [facility] erythrocyte (RBC) count 4.37 10*6/mm3 [...] Payer name Policy type / Coverage type [place] Medicaid [id number] [place] [employer] Medicare [id number]
--- OUTSIDE RECORDS SUMMARY | 2025-03-18 13:39 | XMS_ITS | Encounter Summary ---
Author Organization [facility] Address [address] [place] [address] Care Team Providers Care Battery Container Tester Aluminum Name Role Phone Ebony WILLARD MD, Devante Unavailable [phone] Steven Queen DO Primary Care Provider [phone] Encounter Details Date Type Department Care Team (Late st Contact Info) Description 04/05/2022 [facility] Outpatient Visit [facility] Orthopedics - Radiology [address] [place] [address] Document, Scanned Social History Tobacco Use Types [...] on filedocumented in this encounter Care Teams Battery Container Tester Aluminum Relationship Specialty Start Date End Date Steven Queen DO [address] [place] [address] PCP - General Internal Medicine 06/14/22 [place] [address] [address] Orthopedic Surgery 06/14/22 documented as of this encounter
--- OUTSIDE RECORDS SUMMARY | 2025-03-18 13:39 | XMS_ITS | Encounter Summary ---
Author Organization [facility] Address [address] [place] [address] Phone Care Team Providers Care Gyn Name Role Phone Juan Diego Hennessy MD Unavailable [phone] Kale Jiménez MD Primary Care Provider [phone] Joe Smith MD Unavailable [phone] Lucio Pagan APRN, CNP Unavailable [phone] Reason for Visit * Reason Comments Medication Refill Encounter Details Date Type Department Care Team (Late st Contact Info) Description 05/26/2021 Refill [facility] [address] [place] [address] Juan Diego Hennessy MD [address] [place] [address] Medication Refill Social History Tobacco [...] documented as of this encounter Care Teams Gyn Relationship Specialty Start Date End Date Kale Jiménez MD [address] [place] [address] PCP - General Internal Medicine 11/03/19 Juan Diego Hennessy MD [address] [place] [address] Consulting Physician Oncology 11/03/19 Joe Smith MD [address] [place] [address] Nephrology 11/11/19 Lucio Pagan APRN, HAND SPRING REPA[address] [place] [address] Nurse Practitioner Advanced Practice Nurse 10/06/23 documented as of this encounter
--- OUTSIDE RECORDS SUMMARY | 2025-03-18 13:39 | XMS_ITS | Clinical Summary ---
Author Organization [facility] Address [address] [place] [address] Care Team Providers Care Sql Developer Name Role Phone Ebony WILLARD MD, Devante Unavailable [phone] Steven Queen DO Primary Care Provider [phone] Source Comments [facility] [employer],non-owned Affiliates and Associated Physician Practices is amultiple site organization consisting of ambulatory clinics and hospital sitesin [place], [place], [place] and [place]. This disclosure is being madepursuant to the Care Everywhere program and may not contain all information available regarding this patient. Last updated 18.[facility] [employer] Allergies Active Allergy Reactions Criticality Noted Date Comments Fruit[place] Oil Nausea and/or Vomiting,Other High 02/18/2019 Reaction: [...] medical care, and heating? Somewhat hard 02/20/2023 [facility] [place] [facility] Occupat ional Health - Occupational Stress [...] place to sleep or slept in a intermediate (including now)? No 02/20/2023 Sex and Gender [...] this topic Medical Devices Implanted Type Area Carpet Sewer Device Identifier Shelf Expiration Date Model / Serial / Lot Lag Screw 100mm Implanted:Qty: 1 on 02/20/2023 at [facility] 280.301 / / 280.301 Screw 4.5mm 8mm 46mm 3.5mm Slf-Tap Lg Implanted:Qty: 1 on 02/20/2023 at [facility] [employer] [facility] 214.846 / / Screw 4.5mm 8mm 40mm 3.5mm Slf-Tap Lg Implanted:Qty: 1 on 02/20/2023 at [facility] [employer] [facility] 214.840 / / Screw 36mm Hip Cndrl Comp Dhs Dcs Ss Implanted:Qty: 1 on 02/20/2023 at [facility] 280.990 / / Plate 2 Hl Lopro Comp Hip Cndrl 46x19 Implanted:Qty: 1 on 02/20/2023 at [facility] 281.021S / / Explanted Type Area Carpet Sewer Device Identifier Shelf Expiration Date Model / Serial / Lot Screw 12.7mm 8mm 2.7mm 95mm Hip Cndrl Explanted:Qty: 1 on 02/20/2023 at [facility] 280.295S / / [place] [address] MEDICARE MEDICAID [employer] [place] MEDICARE SELF PAY NO INSURANCE Member Subscriber Plan / Payer (Ef fective for All Dates) Name:Blanca Metcalf Member ID:Not on file Relation to Subscriber:Not on file Name:BLANCA METCALF Subscriber ID:Not on file (Home) Address: [address] [place] [address] Payer ID:Not on file Group ID:Not on file Type:Self Pay Address: [place], [place] MEDICARE MEDICARE Advance Directives * Full Code (Latest Code Status on File) Date Activated Date Inactivated Comments 02/19/2023 9:26 PM 03/21/2023 3:00 PM Care Teams Sql Developer Relationship Specialty Start Date End Date Steven Queen DO [address] [place] [address] PCP - General Internal Medicine 06/14/22 [place] [address] [address] [place] [address] Orthopedic Surgery 06/14/22
--- OUTSIDE RECORDS SUMMARY | 2025-03-18 13:39 | XMS_ITS | Continuity of Care Document ---
Author Organization [facility] Address [id number] [place] [address] [address] [place] [address] Phone Care Team Providers Care Poker Supervisor Name Role Phone Salena Remy Unavailable Unavailable [...] Diagnoses Date Provider Providers Copied on Encounter [facility], [address] [place] [address] [address], [place], [place], [id number], [place] tel:[phone] [facility] No Information 0 Sandrita Martino. [address] , [address], [place], [address], [place]. tel:[phone] [facility], [address], [place], [place], [id number], [place] tel:[phone] SEC [facility] No Information 0 Sandrita Herman [address] , [address], [place], [facility], [place]. tel:[phone] [facility], [address], [place], [place], [id number], [place] tel:[phone] SEC [facility] No Information 0 Francesco Dominguez. [address], [place], [facility], [place]. tel:[phone] [facility], [address] [place] [address] [address], [place], [place], [id number], [place] tel:[phone] SEC [facility] No Information 0 Sandrita Herman [address] , [address], [place], [facility], [place]. tel:[phone] [facility], [address], [place], [place], [id number], [place] tel:[phone] [facility] No Information 0 Sandrita Herman [address] , [address], [place], [facility], [place]. tel:[phone] Office/outpati ent Visit, [facility], [address] [place] [address] [address], [place], [place], [address], [place] tel:[phone] [facility] No Information 0 Sandrita Herman [address] , [address], [place], [facility], [place]. tel:[phone] Referring Provider: Salena Dejesus, [address], [place], [address]. tel:[phone] [facility], [address] [place] [address] [address], [place], [place], [id number], [place] tel:[phone] SEC [facility] No Information Nov-1 9-200 9 Remy Salena. [address] , [address], [place], [facility], [place]. tel:[phone] [facility], [address] [place] [address] [address], [place], [place], [id number], [place] tel:[phone] SEC [facility] No Information Oct-0 1-200 9 Sandrita Salena. [address] , [address], [place], [facility], [place]. tel:[phone] [facility], [address] [place] [address] [address], [place], [place], [id number], [place] tel:[phone] Nov [facility] No Information Sep-3 0-200 9 Remy Salena. [address] , [address], [place], [facility], [place]. tel:[phone] Office/outpati ent Visit, Est [facility], [address] [place] [address] [address], [place], [place], [id number], [place] tel:[phone] [facility] No Information Sep-2 4-200 9 Sandrita Washburnn. [address] , [address], [place], [facility], [place]. tel:[phone] Office/outpati ent Visit, Est [facility], [address] [place] [address] [address], [place], [place], [id number], [place] tel:[phone] SEC [facility] No Information Mar-1 2-200 9 Sandrita Salena. [address] , [address], [place], [facility], [place]. tel:[phone] [facility], [address], [place], [place], [id number], [place] tel:[phone] [facility] No Information Dec-0 8-200 7 Remy Salena. [address], [place], [facility], [place]. tel:[phone] Referring Provider: René Jane, [address], [place], [facility]. tel:[phone] [facility], [address], [place], [place], [id number], [place] tel:[phone] [facility] No Information Feb-1 5-200 7 Remy Salena. [address] , [address], [place], [facility], [place]. tel:[phone] Referring Provider: René Jane, [address], [place], [facility]. tel:[phone] [facility], [address], [place], [place], [id number], [place] tel:[phone] [facility] No Information Feb-0 8-200 7 Remy Salena. [address], [place], [address], [place]. tel:[phone] [facility], [address], [place], [place], [id number], [place] tel:[phone] [facility] No Information Feb-0 7-200 7 Remy Salena. [address] , [address], [place], [facility], [place]. tel:[phone] Referring Provider: René Jane, [address] [place], [address]. tel:[phone] [facility], [address], [place], [place], [id number], [place] tel:[phone] [facility] No Information 7 Sandrita Martino. [address] , [address], [place], [facility], . tel:[phone] Referring Provider: Salena Dejesus, [address], [place], [facility]. tel:[phone] Office Consultation [facility], [address] [place] [address] [address], [place], [place], [id number], tel:[phone] SEC [facility] No Information Ro Merritt. [address] [place] [address], [facility], . tel:[phone] Referring Provider: Salena Dejesus, [address] [facility] [address], [place], [facility]. tel:[phone] [facility], [address] [place] [address] [address], [place], [place], [address], tel:[phone] [facility] No Information 7 Sandrita Martino. [address] [place] [address] , [address], [place], [facility], . tel:[phone] Family History Family Member Type Diagnosis Age At Onset No Information Payers Payer name Insurance type Covered libertarian [...]
--- OUTSIDE RECORDS SUMMARY | 2025-03-18 13:39 | XMS_ITS | Clinical Summary ---
Author Organization [facility] Address [address], [facility] [place] [address] Phone Care Team Providers Care Door Closer Mechanic Name Role Phone Juan Diego Hennessy MD Unavailable [phone] Kale Jiménez MD Primary Care Provider [phone] Joe Smith MD Unavailable [phone] Lucio Pagan APRN, DRAG DOWN Unavailable [phone] Allergies Active Allergy Reactions Criticality Noted Date Comments [place] Oil Nausea High 02/18/2019 shakes Codeine Nausea [...] Parkinson's disease 02/15/2019 Chronic back pain 02/15/2019 Immunizations Immunization Administration Dates Next Due COVID-19, [...] Comments Blood Pressure 133/89 11/30/2024 11:01 AM MIDDLE CARD TENDER Pulse 76 11/30/2024 11:01 AM MIDDLE CARD TENDER Temperature 36.8 C (98.2 F) 10/06/2023 2:17 PM MIDDLE CARD TENDER Respiratory Rate 18 11/30/2024 11:01 AM MIDDLE CARD TENDER Oxygen Saturation 94% 11/30/2024 11:01 AM MIDDLE CARD TENDER Inhaled Oxygen Concentration - - Weight 77.6 kg (171 lb) 11/30/2024 11:01 AM MIDDLE CARD TENDER Height 177.8 cm (5' 10 ) 11/30/2024 11:01 AM MIDDLE CARD TENDER Body Mass Index 24.54 11/30/2024 11:01 AM MIDDLE CARD TENDER Plan of Treatment Health Maintenance Due Date [...] age to complete this topic Insurance [facility] [place] [address] Advance Directives Documents on File Type Date Recorded Patient Diesel Mechanic Expl anation Power of Neuro Ophthalmologist for Health Care 06/05/2023 11:07 AM POA 06/05/23 Care Teams Door Closer Mechanic Relationship Specialty Start Date End Date Kale Jiménez MD [address], [address] [place] [address] PCP - General Internal Medicine 11/03/19 Juan Diego Hennessy MD [address] [place], [place] [address] Consulting Physician Oncology 11/03/19 Joe Smith MD [address], [address] [place] [address] Nephrology 11/11/19 Lucio Pagan APRN, DR[address] [place] [address] Nurse Practitioner Advanced Practice Nurse 10/06/23
--- OUTSIDE RECORDS SUMMARY | 2025-03-18 13:39 | XMS_ITS | Encounter Summary ---
Author Organization [facility] Address [address] [place] [address] Phone Care Team Providers Care Fur Stretcher Name Role Phone Juan Diego Hennessy MD Unavailable [phone] Kale Jiménez MD Primary Care Provider [phone] Joe Smith MD Unavailable [phone] Lucio Pagan APRN, CNP Unavailable + [phone] Reason for Visit * Reason Comments Medication Refill Encounter Details Date Type Department Care Team (Late st Contact Info) Description 11/09/2022 Refill [facility] [address] [address] Juan Diego Hennessy MD [address] [place] [address] Medication Refill Social History Tobacco [...] 8:47 AM CST Please refill if appropriate. ORK COMMUNICATIONS ENGINEER documented in this encounter Plan of Treatment Not on file documented as of this encounter Visit Diagnoses Diagnosis CLL (chronic lymphocytic leukemia) (HCC) Chronic lymphoid leukemia, without mention of having achieved remission documented in this encounter Additional Health Concerns Assessment Noted Time PHQ-9 Depression Total Score: 0 07/26/20 21 9:20 AM CDT documented as of this encounter Care Teams Fur Stretcher Relationship Specialty Start Date End Date Kale Jiménez MD [address], [address] [place] [address] PCP - General Internal Medicine 11/03/19 Juan Diego Hennessy MD [address] [place] [id number] Consulting Physician Oncology 11/03/19 Joe Smith MD [address], [address] [place] [address] Nephrology 11/11/19 Lucio Pagan APRN, BUDGET COORDINATOR [address] [place] [address] Nurse Practitioner Advanced Practice Nurse 10/06/23 documented as of this encounter
--- OUTSIDE RECORDS SUMMARY | 2025-03-18 13:39 | XMS_ITS | Clinical Summary ---
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
[2025-03-18 13:47] LABS: Basophils Absolute Auto 0.1 K/mm3 (0.0-0.1); Basophils Percent Auto 0.5 % (0.2-1.2); Eosinophils Absolute Auto 0.2 K/mm3 (0-0.3); Eosinophils Percent Auto 1.6 % (0-4.4); Hematocrit 29.5 % (42.0-52.0); Hemoglobin 9.3 g/dL (14.0-18.0); Immature Granulocyte Absolute 0.05 K/mm3 (0.00-0.031); Immature Granulocyte Percent A 0.5 % (0-0.5); Lymphocytes Absolute Auto 4.98 K/mm3 (0.9-3.2); Lymphocytes Percent Auto 47.5 % (18.3-44.2); Mean Corpuscular HGB Conc 31.5 g/dl (32-36); Mean Corpuscular Hemoglobin 27.4 pg (26-34); Mean Platelet Volume 10.1 fl (7.4-10.4); Monocytes Absolute Auto 0.4 K/mm3 (0.1-0.6); Monocytes Percent Auto 3.6 % (2.6-8.5); Neutrophils Absolute Auto 4.9 K/mm3 (1.3-6.7); Neutrophils Percent Auto 46.3 % (45.5-73.1); Platelet Count Result 181 k/mm3 (150-375); Red Blood Count 3.39 M/mm3 (4.6-6.20); Red Cell Distribution Width 18.2 % (11.5-14.5); White Blood Count 10.5 K/mm3 (4.5-10.0)
[2025-03-18] MEDS: ONDANSETRON INJ 4 MG/2 ML VIAL IV PUSH (14:01)
[2025-03-18 14:10] LABS: Alanine Aminotransferase 7 U/L (6-50); Albumin Level 3.3 g/dL (3.5-5.1); Alkaline Phosphatase 67 U/L (38-126); Anion Gap 6 mmol/L (4-12); Aspartate Amino Transferase 26 U/L (17-59); Bilirubin,Total 0.8 mg/dL (0.2-1.3); Blood Urea Nitrogen 17 mg/dL (9-20); Calcium 8.5 mg/dL (8.4-10.2); Carbon Dioxide 24 mmol/L (22-30); Chloride 98 mmol/L (98-107); Estimated CRCL calculation 62 ml/min; Estimated Glomerular Filt Rate > 60; Glucose 101 mg/dL (65-110); Lipase 90 U/L (23-300); Sodium 128 mmol/L (137-145)
[2025-03-18 16:27] LABS: Add Urine Microscopic? YES; Appearance Urine Clear (Clear); Bacteria Urine None Seen /hpf; Bilirubin Urine Negative (Negative); Blood Urine Negative (Negative); Color Urine Yellow (Yellow); Glucose Urine UA Negative (Negative); Ketones Urine Negative (Negative); Leukocyte Esterase Ur 2+ LEU/UL (Negative); Need Manual Microscopic Reviewed; Nitrate Urine Positive (Negative); Non Pathogenic Casts 0-2; Protein Urine 1+ mg/dL (Negative); RBC Urine 0-2 /hpf (0-2); Specific Grav Ur > 1.045 (1.001-1.035); Squamous Epithelial Cell Urine None Seen /hpf (Few); Urobilinogen Urine 0.2 mg/dL (<2.0); WBC Urine >100 /hpf (0-3)
--- NOTE | 2025-03-18 18:50 | ED.GENADULT ---
HPI - General Adult General Chief complaint: Urogenital-Male Stated complaint: UTI, coffee ground emesis Time Seen by Provider: 03/18/25 13:29 History of Present Illness HPI narrative: Patient is an 85-year-old male who presents to the ER with possible UTI from this facility. [place] x3 but not to situation. He has no pain. Facility also reports he may have had some coffee-ground emesis but they are unsure. Related Data Home Medications ?Medication ?Instructions ?Recorded ?Confirmed ?Last Taken ?Type alendronate 70 mg tablet 70 mg PO WEEKLY 06/03/23 01/06/25 12/07/24 History bisacodyl 10 mg rectal suppository 10 mg RECTAL DAILY PRN Constipation 06/03/23 01/06/25 11/17/23 History (Dulcolax (bisacodyl)) carvedilol 3.125 mg tablet 3.125 mg PO BID 11/22/23 01/06/25 Unknown History furosemide 20 mg tablet 40 mg PO DAILY 11/22/23 01/06/25 Unknown History gabapentin 300 mg capsule 300 mg PO BID 11/22/23 01/06/25 Unknown History magnesium hydroxide 400 mg/5 mL 30 ml PO HS PRN Constipation 11/22/23 01/06/25 Unknown History oral suspension (Milk of Magnesia) omeprazole 20 mg capsule,delayed 20 mg PO DAILY 11/22/23 01/06/25 Unknown History release atorvastatin 80 mg tablet 80 mg PO HS 12/04/23 01/06/25 Unknown History ondansetron 8 mg disintegrating 8 mg PO Q8H 04/13/24 01/06/25 Unknown History tablet allopurinol 100 mg tablet 100 mg PO DAILY 11/15/24 01/06/25 Unknown History amlodipine 5 mg tablet 2.5 mg PO QAM 11/15/24 01/06/25 Unknown History ascorbic acid (vitamin C) 500 mg 500 mg PO BID 11/15/24 01/06/25 Unknown History capsule cholecalciferol (vitamin D3) 125 5,000 unit PO DAILY 11/15/24 01/06/25 Unknown History mcg (5,000 unit) tablet (Vitamin D3) ferrous sulfate 325 mg (65 mg 325 mg PO TID 11/15/24 01/06/25 Unknown History iron) tablet,delayed release folic acid 1 mg tablet 1 mg PO DAILY 11/15/24 01/06/25 Unknown History loratadine 10 mg tablet (Allergy 10 mg PO DAILY 11/15/24 01/06/25 Unknown History Relief (loratadine)) methotrexate sodium 2.5 mg tablet 15 mg PO DAILY 11/15/24 01/06/25 Unknown History potassium chloride 10 mEq 10 meq PO DAILY 11/15/24 01/06/25 Unknown History tablet,extended release spironolactone 25 mg tablet 25 mg PO DAILY 11/15/24 01/06/25 Unknown History acetaminophen 325 mg tablet 650 mg PO Q4H PRN fever or pain 12/14/24 01/06/25 Unknown History cyanocobalamin (vitamin B-12) 1,000 mcg PO DAILY 12/14/24 01/06/25 Unknown History 1,000 mcg capsule dextran 70-hypromellose 0.1 %-0.3 1 drp EACH EYE BID PRN dry eye(s) 12/14/24 01/06/25 Unknown History % eye drops (Artificial Tears (dextran 70-hypromellose)) dextromethorphan-guaifenesin 10 10 ml PO Q6H PRN cough 12/14/24 01/06/25 Unknown History mg-100 mg/5 mL oral liquid (Tussin DM) diclofenac sodium 1 % topical gel 4 g topical BID 12/14/24 01/06/25 Unknown History (Arthritis Pain (diclofenac)) finasteride 5 mg tablet 5 mg PO DAILY 12/14/24 01/06/25 Unknown History fluticasone 250 mcg-salmeterol 50 1 inh inhalation Q12H 12/14/24 01/06/25 Unknown History mcg/dose blistr powdr for inhalation (Advair Diskus) ipratropium 0.5 mg-albuterol 3 mg 3 ml inhalation TID 12/14/24 01/06/25 Unknown History (2.5 mg base)/3 mL nebulization soln magnesium citrate (Citroma oral 296 ml PO DAILY PRN constipation 12/14/24 01/06/25 Unknown History solution) sennosides 8.6 mg-docusate sodium 2 tab-cap PO BID 12/14/24 01/06/25 Unknown History 50 mg tablet (2-in-1 Laxative) sodium phosphates 19 gram-7 118 ml RECTAL DAILY PRN 12/14/24 01/06/25 Unknown History gram/118 mL enema constipation Allergies Allergy/AdvReac Type Severity Reaction Status Date / Time azithromycin Allergy Unknown Unknown Verified 01/06/25 12:40 neomycin Allergy Unknown rash Verified 01/06/25 12:40 Sulfa (Sulfonamide Allergy Unknown Rash Verified 01/06/25 12:40 Antibiotics) castor oil AdvReac Intermediate Nausea and Verified 01/06/25 12:40 Vomiting erythromycin base AdvReac Intermediate SHAKING, Verified 01/06/25 12:40 HEADACHE Review of Systems Review of Systems: ROS unobtainable: Yes unobtainable due to mental status [facility] Past Medical History Medical History Depression with anxiety History of infection due to ESBL Escherichia coli Urinary retention due to benign prostatic hyperplasia Venous stasis dermatitis of both lower extremities Lung nodule Collagenous colitis Chronic indwelling Duron catheter Diastolic dysfunction Echo 01/2022: EF 60 65% Chronic obstructive pulmonary disease Hypothyroidism Benign prostatic hyperplasia Arthritis Degenerative disc disease Renal cell carcinoma of right kidney Status post right nephrectomy. Gastroesophageal reflux disease Silicosis Obstructive sleep apnea Chronic anemia Chronic kidney disease, stage 3 Baseline creatinine ranges between 1.30 and 1.40. Degenerative arthritis of knee, bilateral Chronic lymphocytic leukemia Cognitive impairment Essential hypertension Parkinson disease Primary osteoarthritis of both knees Surgical History Surgical History Status post open reduction with internal fixation of fracture Right femoral neck fracture History of arthroscopy of right knee History of cholecystectomy History of appendectomy History of repair of left rotator cuff History of cataract extraction History of right nephrectomy (2003) History of back surgery Family History Family History Father Family history of liver disease Family history of lung cancer Patient's father is Family history of primary malignant neoplasm of liver Mother Family history of heart disease in male family member before age 55 Patient's mother is Family history of coronary artery disease Acute myocardial infarction Sibling Family history of lung cancer Family history of malignant neoplasm of bone Patient's sister is Patient's brother is Malignant neoplasm of prostate Grandparent Family history of arthritis Other Family history of malignant neoplasm of kidney Social History Social History (Reviewed 03/01/25 @ 18:03 by IZZY Cortez Social History: He is . The patient resides at [facility]. His son lives in the local area. The patient is retired from [employer]. No alcohol, tobacco, or illicit substance. He uses wheelchair for mobility and can stand to pivot. 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 HEAD: Normocephalic, atraumatic. ENT: Mucous membranes moist. CHEST: Clear to auscultation. No respiratory distress. HEART: Regular rate and rhythm. Normal peripheral pulses. ABDOMEN: Soft, nontender, nondistended. Hemoccult-negative stool on digital rectal exam. EXTREMITIES: Normal range of motion. No edema. SKIN: Warm, dry, no rash. NEURO: Alert and oriented x3. PSYCH: Normal mood and affect. Course Course Emergency Course: Patient resting comfortably. IV antibiotics for UTI. Labs unremarkable. Appropriate for discharge back facility. Vital Signs Vital signs: Vital Signs Temperature 98.2 F 03/18/25 13:21 Pulse Rate 72 03/18/25 13:21 Respiratory Rate 16 03/18/25 13:21 Blood Pressure 115/69 03/18/25 13:21 Pulse Oximetry 96 03/18/25 13:21 Temperature 98.0 F 03/18/25 20:24 Pulse Rate 65 03/18/25 20:24 Respiratory Rate 19 03/18/25 20:24 Blood Pressure 104/78 03/18/25 20:24 Pulse Oximetry 99 03/18/25 20:24 Medical Decision Making Vital Signs Vital Signs: Vital Signs Temperature 98.2 F 03/18/25 13:21 Pulse Rate 72 03/18/25 13:21 Respiratory Rate 16 03/18/25 13:21 Blood Pressure 115/69 03/18/25 13:21 Pulse Oximetry 96 03/18/25 13:21 Temperature 98.0 F 03/18/25 20:24 Pulse Rate 65 03/18/25 20:24 Respiratory Rate 19 03/18/25 20:24 Blood Pressure 104/78 03/18/25 20:24 Pulse Oximetry 99 03/18/25 20:24 Lab Data 03/18/25 13:38 03/18/25 13:38 Labs: Lab Results 03/18/25 Range/Units 13:38 WBC 10.5 H (4.5-10.0) K/mm3 RBC 3.39 L (4.6-6.20) M/mm3 Hgb 9.3 L (14.0-18.0) g/dL Hct 29.5 L (42.0-52.0) % MCV 87.0 (80-100) fl MCH 27.4 (26-34) pg MCHC 31.5 L (32-36) g/dl RDW 18.2 H (11.5-14.5) % Plt Count 181 (150-375) k/mm3 MPV 10.1 (7.4-10.4) fl Immature Gran % (Auto) 0.5 (0-0.5) % Neut % (Auto) 46.3 (45.5-73.1) % Lymph % (Auto) 47.5 H (18.3-44.2) % [place] % (Auto) 3.6 (2.6-8.5) % Eos % (Auto) 1.6 (0-4.4) % Baso % (Auto) 0.5 (0.2-1.2) % Lymph # (Auto) 4.98 H (0.9-3.2) K/mm3 [place] # (Auto) 0.4 (0.1-0.6) K/mm3 Eos # (Auto) 0.2 (0-0.3) K/mm3 Baso # (Auto) 0.1 (0.0-0.1) K/mm3 Abs Immat Gran (auto) 0.05 H (0.00-0.031) K/mm3 Absolute Neuts (auto) 4.9 (1.3-6.7) K/mm3 Absolute Nucleated RBC 0.000 (0.0-0.012) K/mm3 Nucleated RBC % 0.0 (0.0-0.2) % Sodium 128 L (137-145) mmol/L Potassium 5.0 (3.4-5.0) mmol/L Chloride 98 (98-107) mmol/L Carbon Dioxide 24 (22-30) mmol/L Anion Gap 6 (4-12) mmol/L BUN 17 (9-20) mg/dL Creatinine 0.78 (0.7-1.3) mg/dL Estim Creat Clear Calc 62 ml/min Estimated GFR > 60 (59 - ) Glucose 101 (65-110) mg/dL Calcium 8.5 (8.4-10.2) mg/dL Total Bilirubin 0.8 (0.2-1.3) mg/dL AST 26 (17-59) U/L ALT 7 (6-50) U/L Alkaline Phosphatase 67 (38-126) U/L Total Protein 7.0 (6.3-8.2) g/dL Albumin 3.3 L (3.5-5.1) g/dL Lipase 90 (23-300) U/L Urine Color Yellow (Yellow) Urine Appearance Clear (Clear) Urine pH 7.0 (5.0-9.0) Ur Specific [place] > 1.045 H (1.001-1.035) Urine Protein 1+ H (Negative) mg/dL Urine Glucose (UA) Negative (Negative) mg/dL Urine Ketones Negative (Negative) mg/dL Ur Blood (Man) Negative (Negative) Urine Nitrate Positive H (Negative) Urine Bilirubin Negative (Negative) Urine Urobilinogen 0.2 (<2.0) mg/dL Add Ur Microanalysis Reviewed Leukocyte Esterase Rfl 2+ H (Negative) PARUL/UL Urine RBC 0-2 (0-2) /hpf Urine WBC >100 H (0-3) /hpf Ur Squamous Epith Cells None seen (Few) /hpf Urine Bacteria None seen /hpf Urine Casts 0-2 Imaging Data Radiologist's impression: ITS Impressions Abdomen/Pelvis CT 03/18/25 15:17 IMPRESSION: 1. No evidence of appendicitis, diverticulitis or intestinal obstruction. 2. Minimal atelectatic changes in the lung bases with minimal right pleural effusion. 3. Focal atelectatic area in the right lung upper follow-up advised. 4. Fat stranding in the presacral area. Possibility of proctitis is not excluded. Clinical correlation advised. 5. Status post right nephrectomy. Discharge Plan Discharge Clinical Impression: Acute UTI, Dehydration Patient Disposition: Home Condition: Stable Instructions: Antibiotic Form, Urinary Tract Infection in Men (ED) Additional Instructions: You should return to the emergency department if you develop severe nausea and vomiting and are unable to keep liquids down, if you develop severe back/flank or stomach pain, or if your symptoms are not clearly improving at home. Patient Language: Albanian Prescriptions: New cefuroxime axetil 500 mg tablet 500 mg PO Q12H Qty: 20 0RF No Action alendronate 70 mg tablet 70 mg PO WEEKLY Rx Instructions: every friday bisacodyl [Dulcolax (bisacodyl)] 10 mg suppository 10 mg RECTAL DAILY PRN (Reason: Constipation) ondansetron 8 mg tablet,disintegrating 8 mg PO Q8H carbidopa-levodopa [Sinemet] 25-100 mg tablet 3 tablet PO TID Qty: 240 6RF Rx Instructions: May increase to 3 tablets 4 times a day as necessary atorvastatin 80 mg tablet 80 mg PO HS acetaminophen 325 mg tablet 650 mg PO Q4H PRN (Reason: fever or pain) fluticasone propion-salmeterol [Advair Diskus] 250-50 mcg/dose blister with device 1 inh inhalation Q12H Artificial Tears([id number]) 0.1-0.3 % drops 1 drp EACH EYE BID PRN (Reason: dry eye(s)) magnesium citrate [Citroma] Solution 296 ml PO DAILY PRN (Reason: constipation) cyanocobalamin (vitamin B-12) 1,000 mcg capsule 1,000 mcg PO DAILY sodium phosphates 19-7 gram/118 mL enema 118 ml RECTAL DAILY PRN (Reason: constipation) Rx Instructions: INSERT 1 APPLICATION RECTALLY NEEDED FOR CONSTIPATION IF NO RESULTS 1 DAY AFTER SUPPOSITORY dextromethorphan-guaifenesin [Tussin DM] 10-100 mg/5 mL liquid 10 ml PO Q6H PRN (Reason: cough) ipratropium-albuterol 0.5 mg-3 mg(2.5 mg base)/3 mL solution for nebulization 3 ml INHALATION TID diclofenac sodium [Arthritis Pain (diclofenac)] 1 % gel 4 g topical BID Rx Instructions: APPLY TO RIGHT NEED sennosides-docusate sodium [2-in-1 Laxative] 8.6-50 mg tablet 2 tab-cap PO BID Rx Instructions: MAY HOLD FOR SOFT STOOL WITHIN 24 HOURS finasteride 5 mg tablet 5 mg PO DAILY guaifenesin [Mucus Relief ER] 600 mg Tablet Extended Release 12hr 600 mg PO Q12HR Qty: 30 0RF lactulose [Enulose] 10 gram/15 mL solution 30 ml PO DAILY PRN (Reason: Constipation) Qty: 237 0RF hydrocodone-acetaminophen 5-325 mg tablet 1 tablet PO Q8H PRN (Reason: Pain (Scale Score 4-6)) Qty: 6 0RF lidocaine [Lidoderm] 5 % adhesive patch,medicated 1 patch topical DAILY Qty: 15 0RF Patient Comments: APPLY TO LOWER BACK TOPICALLY TWO TIMES A DAY Rx Instructions: leave on most painful area for up to 12 hrs carvedilol 3.125 mg Tablet 3.125 mg PO BID Rx Instructions: must administer with a meal/food magnesium hydroxide [Milk of Magnesia] 400 mg/5 mL Suspension 30 ml PO HS PRN (Reason: Constipation) Rx Instructions: if no BM in three days gabapentin 300 mg Capsule 300 mg PO BID omeprazole 20 mg Capsule,Delayed Release(Dr/Ec) 20 mg PO DAILY furosemide 20 mg Tablet 40 mg PO DAILY allopurinol 100 mg tablet 100 mg PO DAILY methotrexate sodium 2.5 mg tablet 15 mg PO DAILY potassium chloride 10 mEq tablet extended release 10 meq PO DAILY spironolactone 25 mg tablet 25 mg PO DAILY amlodipine 5 mg tablet 2.5 mg PO QAM ferrous sulfate 325 mg (65 mg iron) Tablet,Delayed Release (Dr/Ec) 325 mg PO TID folic acid 1 mg tablet 1 mg PO DAILY cholecalciferol (vitamin D3) [Vitamin D3] 125 mcg (5,000 unit) tablet 5,000 unit PO DAILY ascorbic acid (vitamin C) 500 mg capsule 500 mg PO BID loratadine [Allergy Relief (loratadine)] 10 mg tablet 10 mg PO DAILY polyethylene glycol 3350 [Miralax] 17 gram Powder In Packet 17 g PO QAM Qty: 10 0RF Patient Comments: HOLD FOR LOOSE STOOLS levothyroxine 100 mcg tablet 100 mcg PO DAILY Qty: 90 1RF tamsulosin 0.4 mg capsule 0.8 mg PO DAILY Qty: 180 1RF duloxetine 60 mg capsule,delayed release(DR/EC) 60 mg PO DAILY Qty: 30 1RF albuterol sulfate 90 mcg/actuation HFA aerosol inhaler 1 puff INHALATION Q4H PRN (Reason: shortness of breath or wheezing) Qty: 8.5 1RF Follow-up/Referrals: Raoul Forbes MD [Primary Care Provider] - 1 Week
== END 2025-03-18 20:23 | disposition home or self-care (01) ==
PROVIDERS: Emergency Provider Emergency Medicine; PCP Family Medicine
DX: N39.0 Urinary tract infection, site not specified (principal); E86.0 Dehydration; E03.9 Hypothyroidism, unspecified; N18.30 Chronic kidney disease, stage 3 unspecified; I12.9 Hypertensive chronic kidney disease with stage 1 through stage 4 chronic kidney disease, or unspecified chronic kidney disease; G20.A1 Parkinson's disease without dyskinesia, without mention of fluctuations; Z85.528 Personal history of other malignant neoplasm of kidney; K21.9 Gastro-esophageal reflux disease without esophagitis
CPT/HCPCS: 36415; 74177; 80053; 81001; 83690; 85025; 87086; 96365; 96375; 99284; J0696; J2405; Q9967

== ENCOUNTER 2025-04-23 09:09 | Emergency (ER) | payer MEDICARE, MEDICAID, SELFPAY ==
--- NOTE | ~2025-04-23 | CT_ITS ---
EXAMINATION: CT chest abdomen pelvis w con DATE: 04/23/2025 13:46 INDICATION: Altered mental status and weakness. TECHNIQUE: Computed tomography (CT) of the chest, abdomen, and pelvis was performed with 100 mL Omnip aque-350 intravenous contrast. Automated exposure control and iterative reconstruction technique were employed. The dose-length product was 842.74 mGy-cm. COMPARISON: CT abdomen pelvis dated 03/18/[address] dated 12/13/2024 FINDINGS: CHEST CT: Small right pleural effusion. On loss and mild dependent atelectasis in the bilateral lower lobes, ri ght greater than left. 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 There are additional calcified nodules in the right lung and calcified right hilar and mediastinal lymph nodes also consistent with old granulomatous disease. Heart size is normal but with mild right ventricular and right atrial enlargement. Atherosclerotic coronary artery calcification. No pericardial effusion. Thoracic aorta is normal in caliber with no dissection. No p athologically enlarged thoracic lymphadenopathy. Moderate thoracic spondylosis with bridging osteophy patti at multiple levels consistent with diffuse idiopathic skeletal hyperostosis (DISH). ABDOMEN/PELVIS CT: Cholecystectomy clips the gallbladder fossa. Liver, spleen, pancreas bilateral adrenal glands are nor mal. Couple low-attenuation left renal cysts the largest at the lower pole measuring 1.8 cm. Status p ost cholecystectomy with multiple retroperitoneal surgical clips at and caudal to the right renal fos sa. There is moderate colonic diverticulosis with a sigmoid predominance. There is no adjacent infla mmatory change to suggest diverticulitis. The appendix is not visualized. No pericecal inflammatory c hange to suggest acute appendicitis.. 7 cm ball of stool at the rectum. No bowel obstruction. Sugges tion of some wall thickening of the bladder which is decompressed around a Duron catheter. No free in traperitoneal gas or fluid. No pathologically enlarged abdominal or pelvic lymphadenopathy. Mild lumb ar dextrocurvature with moderate spondylosis. Internal fixation of an old healed intertrochanteric fr acture the proximal right femur. IMPRESSION: 1. Small right pleural effusion and dependent atelectasis in bilateral lower lobes. 2. Normal heart size but with mild right atrial and right ventricular enlargement. 3. Duron catheter in the bladder which demonstrate chronic wall thickening which could be due to the decompressed state or cystitis either acute or chronic. 4. Subcentimeter postop rectum. Correlate clinically for constipation/fecal impaction.. Reviewed, dictated and finalized at location A. IMPRESSION: 1. Small right pleural effusion and dependent atelectasis in bilateral lower lo bes. 2. Normal heart size but with mild right atrial and right ventricular enlargeme nt. 3. Duron catheter in the bladder which demonstrate chronic wall thickening whic h could be due to the decompressed state or cystitis either acute or chronic. 4. Subcentimeter postop rectum. Correlate clinically for constipation/fecal imp action..
--- NOTE | ~2025-04-23 | XR_ITS ---
EXAMINATION: XR chest 1V DATE: 04/23/2025 11:56 INDICATION: Altered mental status TECHNIQUE: frontal view of the chest was obtained. COMPARISON: Chest radiograph and CT dated 12/13/2024 FINDINGS: Patient is rotated slightly towards the right. Small lung volumes. No focal airspace opacities, pulmo nary edema, pleural effusion or pneumothorax. Borderline heart size. Right rotator cuff arthropathy. Surgical clips in right upper quadrant consistent with prior cholecystectomy and right nephrectomy. IMPRESSION: 1. Small lung volumes. No acute cardiopulmonary disease. Reviewed, dictated and finalized at location A.
--- NOTE | ~2025-04-23 | CT_ITS ---
EXAMINATION: CT brain wo con DATE: 04/23/2025 11:50 INDICATION: Altered mental status TECHNIQUE: Computed tomography (CT) of the head was performed without intravenous contrast. Sagittal and coronal reconstructions were performed. The mA was adjusted according to patient size. Iterative reconstruction technique was employed. The dose-length product was 681.00 mGy-cm. COMPARISON: head CT dated 03/01/2025 FINDINGS: Small region of encephalomalacia in the left frontoparietal region consistent with sequela of old inf arct. Additional small old lacunar infarcts at the left frontal lobe hill radiata in the bilateral cerebellar hemispheres. No acute intracranial hemorrhage, acute infarction or abnormal extra axial fl uid collection. There is mild scattered white matter hypoattenuation consistent with chronic small ve ssel ischemic disease. Symmetric prominence of the sulci consistent with mild age-appropriate diffuse cerebral volume loss. Ventricles are normal and symmetric. No mass/mass effect. Changes of bilateral intraocular lens replacement. The orbits, paranasal sinuses and mastoid air cells are normal. Intrac ranial calcified cerebral atherosclerosis is noted. IMPRESSION: 1. 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 N o acute intracranial process. 2. Age-related changes including mild diffuse volume loss and mild scattered white matter hypoattenua tion consistent with chronic small vessel ischemic disease. Reviewed, dictated and finalized at location A. IMPRESSION: 1. 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 No acute intracranial process. 2. Age-related changes including mild diffuse volume loss and mild scattered wh ite matter hypoattenuation consistent with chronic small vessel ischemic diseas e.
[2025-04-23 09:09] VITALS: BP 125/78; PULSE 73; RESP 20; TEMP 36.3; O2SAT 100
--- NOTE | 2025-04-23 09:21 | ECG_ITS ---
Test Date: 2025-04-23 09:20:45 Measurements Intervals [place] Rate: 67 P: 0 SD: 0 QRS: -46 QRSD: 110 T: 46 QT: 432 QTc: 457 Interpretive Statements ATRIAL FLUTTER/TACHYCARDIA WITH ABERRANT CONDUCTION OR VENTRICULAR PREMATURE COMPLEXES INTRAVENTRICULAR CONDUCTION DELAY LOW QRS VOLTAGE IN PRECORDIAL LEADS CONSIDER INFERIOR INFARCT, AGE INDETERMINATE BORDERLINE ST-T WAVE ABNORMALITY- LAT/HIGH LAT LEADS BASELINE ARTIFACT- I, II, III, AVR, AVL, AVF, V1-V6 ABNORMAL ECG Compared to ECG 12/14/2024 08:48:23 NO SIGNIFICANT CHANGE Electronically Signed On 04-23-2025 10:14:29 CDT by Arnulfo Eason D.O.
--- NOTE | 2025-04-23 09:25 | PC.NURSE ---
called pt's emergency contact and granddaughter Eveline. They didn't answer the phone. unable to leave voicemail due to inbox being full
--- NOTE | 2025-04-23 09:29 | PC.NURSE ---
EDP dr. holder at bedside, VORB to obtain ekg but no other orders at this time until family is contacted.
--- NOTE | 2025-04-23 09:44 | ED_ITS ---
HPI - General Adult General Chief complaint: Altered Mental Status Stated complaint: ams Time Seen by Provider: 04/23/25 09:10 History of Present Illness HPI narrative: This is an 85-year-old male dementia presenting for altered mental status. Per the intermediate this morning he has been having episodes of hypoxia hypotension with his eyes rolling back in his head. At this time he is A&O x1. He has no complaints and Keppra not provide any meaningful information to guide a workup. Review of the patient's intermediate paperwork shows that he is comfort measures only. Related Data Home Medications ?Medication ?Instructions ?Recorded ?Confirmed ?Last Taken ?Type alendronate 70 mg tablet 70 mg PO WEEKLY 06/03/23 01/06/25 12/07/24 History bisacodyl 10 mg rectal suppository 10 mg RECTAL DAILY PRN Constipation 06/03/23 01/06/25 11/17/23 History (Dulcolax (bisacodyl)) carvedilol 3.125 mg tablet 3.125 mg PO BID 11/22/23 01/06/25 Unknown History furosemide 20 mg tablet 40 mg PO DAILY 11/22/23 01/06/25 Unknown History gabapentin 300 mg capsule 300 mg PO BID 11/22/23 01/06/25 Unknown History magnesium hydroxide 400 mg/5 mL 30 ml PO HS PRN Constipation 11/22/23 01/06/25 Unknown History oral suspension (Milk of Magnesia) omeprazole 20 mg capsule,delayed 20 mg PO DAILY 11/22/23 01/06/25 Unknown History release atorvastatin 80 mg tablet 80 mg PO HS 12/04/23 01/06/25 Unknown History ondansetron 8 mg disintegrating 8 mg PO Q8H 04/13/24 01/06/25 Unknown History tablet allopurinol 100 mg tablet 100 mg PO DAILY 11/15/24 01/06/25 Unknown History amlodipine 5 mg tablet 2.5 mg PO QAM 11/15/24 01/06/25 Unknown History ascorbic acid (vitamin C) 500 mg 500 mg PO BID 11/15/24 01/06/25 Unknown History capsule cholecalciferol (vitamin D3) 125 5,000 unit PO DAILY 11/15/24 01/06/25 Unknown History mcg (5,000 unit) tablet (Vitamin D3) ferrous sulfate 325 mg (65 mg 325 mg PO TID 11/15/24 01/06/25 Unknown History iron) tablet,delayed release folic acid 1 mg tablet 1 mg PO DAILY 11/15/24 01/06/25 Unknown History loratadine 10 mg tablet (Allergy 10 mg PO DAILY 11/15/24 01/06/25 Unknown History Relief (loratadine)) methotrexate sodium 2.5 mg tablet 15 mg PO DAILY 11/15/24 01/06/25 Unknown History potassium chloride 10 mEq 10 meq PO DAILY 11/15/24 01/06/25 Unknown History tablet,extended release spironolactone 25 mg tablet 25 mg PO DAILY 11/15/24 01/06/25 Unknown History acetaminophen 325 mg tablet 650 mg PO Q4H PRN fever or pain 12/14/24 01/06/25 Unknown History cyanocobalamin (vitamin B-12) 1,000 mcg PO DAILY 12/14/24 01/06/25 Unknown History 1,000 mcg capsule dextran 70-hypromellose 0.1 %-0.3 1 drp EACH EYE BID PRN dry eye(s) 12/14/24 01/06/25 Unknown History % eye drops (Artificial Tears (dextran 70-hypromellose)) dextromethorphan-guaifenesin 10 10 ml PO Q6H PRN cough 12/14/24 01/06/25 Unknown History mg-100 mg/5 mL oral liquid (Tussin DM) diclofenac sodium 1 % topical gel 4 g topical BID 12/14/24 01/06/25 Unknown History (Arthritis Pain (diclofenac)) finasteride 5 mg tablet 5 mg PO DAILY 12/14/24 01/06/25 Unknown History fluticasone 250 mcg-salmeterol 50 1 inh inhalation Q12H 12/14/24 01/06/25 Unknown History mcg/dose blistr powdr for inhalation (Advair Diskus) ipratropium 0.5 mg-albuterol 3 mg 3 ml inhalation TID 12/14/24 01/06/25 Unknown History (2.5 mg base)/3 mL nebulization soln magnesium citrate (Citroma oral 296 ml PO DAILY PRN constipation 12/14/24 01/06/25 Unknown History solution) sennosides 8.6 mg-docusate sodium 2 tab-cap PO BID 12/14/24 01/06/25 Unknown History 50 mg tablet (2-in-1 Laxative) sodium phosphates 19 gram-7 118 ml RECTAL DAILY PRN 12/14/24 01/06/25 Unknown History gram/118 mL enema constipation Allergies Allergy/AdvReac Type Severity Reaction Status Date / Time azithromycin Allergy Unknown Unknown Verified 01/06/25 12:40 neomycin Allergy Unknown rash Verified 01/06/25 12:40 Sulfa (Sulfonamide Allergy Unknown Rash Verified 01/06/25 12:40 Antibiotics) castor oil AdvReac Intermediate Nausea and Verified 01/06/25 12:40 Vomiting erythromycin base AdvReac Intermediate SHAKING, Verified 01/06/25 12:40 HEADACHE PMFSH Past Medical History Medical History Depression with anxiety History of infection due to ESBL Escherichia coli Urinary retention due to benign prostatic hyperplasia Venous stasis dermatitis of both lower extremities Lung nodule Collagenous colitis Chronic indwelling Duron catheter Diastolic dysfunction Echo 01/2022: EF 60 65% Chronic obstructive pulmonary disease Hypothyroidism Benign prostatic hyperplasia Arthritis Degenerative disc disease Renal cell carcinoma of right kidney Status post right nephrectomy. Gastroesophageal reflux disease Silicosis Obstructive sleep apnea Chronic anemia Chronic kidney disease, stage 3 Baseline creatinine ranges between 1.30 and 1.40. Degenerative arthritis of knee, bilateral Chronic lymphocytic leukemia Cognitive impairment Essential hypertension Parkinson disease Primary osteoarthritis of both knees Surgical History Surgical History Status post open reduction with internal fixation of fracture Right femoral neck fracture History of arthroscopy of right knee History of cholecystectomy History of appendectomy History of repair of left rotator cuff History of cataract extraction History of right nephrectomy (2003) History of back surgery Family History Family History Father Family history of liver disease Family history of lung cancer Patient's father is Family history of primary malignant neoplasm of liver Mother Family history of heart disease in male family member before age 55 Patient's mother is Family history of coronary artery disease Acute myocardial infarction Sibling Family history of lung cancer Family history of malignant neoplasm of bone Patient's sister is Patient's brother is Malignant neoplasm of prostate Grandparent Family history of arthritis Other Family history of malignant neoplasm of kidney Social History Social History Social History: He is . The patient resides at [facility]. His son lives in the local area. The patient is retired from [employer]. No alcohol, tobacco, or illicit substance. He uses wheelchair for mobility and can stand to pivot. 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 A&O x1, frail Head: atraumatic. EYES: EOMI, NOSE: Atraumatic NECK: Trachea midline RESPIRATORY: No increased rate of breathing clear to auscultation CARDIOVASCULAR: Irregular, no peripheral edema ABDOMINAL: Non-distended soft nontender MUSCULOSKELETAl: No obvious deformities NEURO: Alert. Moving 4/4 extremities SKIN:: Warm, dry. Normal color PSYCHIATRIC: Normal affect Course Vital Signs Vital signs: Vital Signs Temperature 97.3 F L 04/23/25 09:09 Pulse Rate 73 04/23/25 09:09 Respiratory Rate 20 04/23/25 09:09 Blood Pressure 125/78 04/23/25 09:09 Pulse Oximetry 100 04/23/25 09:09 Oxygen Delivery Room Air 04/23/25 09:09 Temperature 97.3 F L 04/23/25 09:09 Pulse Rate 64 04/23/25 10:56 Respiratory Rate 15 04/23/25 10:56 Blood Pressure 121/59 L 04/23/25 10:56 Pulse Oximetry 100 04/23/25 10:56 Oxygen Delivery Room Air 04/23/25 10:56 Medical Decision Making MDM Narrative Medical decision making narrative: -Course: 85-year-old male with dementia presenting for altered mental status and periods of hypotension and hypoxia. Patient has no complaints this time other than he is cold. Review of his intermediate paperwork shows that he is DNR DNI comfort measures only. I am reaching out to the family to determine a care plan. We reached out to the patient's [id number] and all contacts listed and both are paperwork on the intermediate paperwork we have not received a call back. Altered mental status workup has been obtained. Workup significant for 6-10 white blood cells in the urine with +2 leuk esterase. Urine Cultures are pending. Opiates are positive on the UDS. Troponins are essentially flat at 0.056 -> .060. Patient does not endorse chest pain. EKG shows AFib with frequent PVCs, no ischemic changes. Viral swabs negative. Otherwise CBC metabolic panel within normal limits. CT chest abdomen pelvis without any causative findings. CT head showed chronic changes but no acute bleed. Overall the patient has not had a recurrence of the symptoms that were reported at the intermediate. He has been resting comfortably throughout his stay here. His workup is unimpressive outside of possibly a mild UTI. Patient is comfort measures only. He will be discharged back to his intermediate on p.o. antibiotics. -DDX includes but is not limited to: Sepsis UTI dehydration pneumonia cardiac dysrhythmia Vital Signs Vital Signs: Vital Signs Temperature 97.3 F L 04/23/25 09:09 Pulse Rate 73 04/23/25 09:09 Respiratory Rate 20 04/23/25 09:09 Blood Pressure 125/78 04/23/25 09:09 Pulse Oximetry 100 04/23/25 09:09 Oxygen Delivery Room Air 04/23/25 09:09 Temperature 97.3 F L 04/23/25 09:09 Pulse Rate 64 04/23/25 10:56 Respiratory Rate 15 04/23/25 10:56 Blood Pressure 121/59 L 04/23/25 10:56 Pulse Oximetry 100 04/23/25 10:56 Oxygen Delivery Room Air 04/23/25 10:56 Lab Data 04/23/25 12:34 04/23/25 12:34 Labs: Lab Results 04/23/25 04/23/25 04/23/25 Range/Units 12:07 12:34 14:18 WBC 8.0 (4.5-10.0) K/mm3 RBC 3.23 L (4.6-6.20) M/mm3 Hgb 9.0 L (14.0-18.0) g/dL Hct 28.4 L (42.0-52.0) % MCV 87.9 (80-100) fl MCH 27.9 (26-34) pg MCHC 31.7 L (32-36) g/dl RDW 19.3 H (11.5-14.5) % Plt Count 246 (150-375) k/mm3 MPV 10.2 (7.4-10.4) fl Immature Gran % (Auto) 0.5 (0-0.5) % Neut % (Auto) 45.5 (45.5-73.1) % Lymph % (Auto) 49.4 H (18.3-44.2) % [place] % (Auto) 3.5 (2.6-8.5) % Eos % (Auto) 0.7 (0-4.4) % Baso % (Auto) 0.4 (0.2-1.2) % Lymph # (Auto) 3.97 H (0.9-3.2) K/mm3 [place] # (Auto) 0.3 (0.1-0.6) K/mm3 Eos # (Auto) 0.1 (0-0.3) K/mm3 Baso # (Auto) 0.0 (0.0-0.1) K/mm3 Abs Immat Gran (auto) 0.04 H (0.00-0.031) K/mm3 Absolute Neuts (auto) 3.7 (1.3-6.7) K/mm3 Absolute Nucleated RBC 0.000 (0.0-0.012) K/mm3 Nucleated RBC % 0.0 (0.0-0.2) % PT 15.0 H (11.1-14.7) Seconds INR 1.2 APTT 35.9 (22.3-36.8) Seconds Sodium 129 L (137-145) mmol/L Potassium 4.1 (3.4-5.0) mmol/L Chloride 96 L (98-107) mmol/L Carbon Dioxide 24 (22-30) mmol/L Anion Gap 9 (4-12) mmol/L BUN 18 (9-20) mg/dL Creatinine 0.87 (0.7-1.3) mg/dL Estim Creat Clear Calc 56 ml/min Estimated GFR > 60 (59 - ) Glucose 106 (65-110) mg/dL Lactic Acid 1.2 (0.7-2.0) mmol/L Calcium 8.8 (8.4-10.2) mg/dL Phosphorus 3.3 (2.5-4.5) mg/dL Magnesium 1.6 (1.6-2.3) mg/dL Total Bilirubin 0.5 (0.2-1.3) mg/dL AST 18 (17-59) U/L ALT 10 (6-50) U/L Alkaline Phosphatase 71 (38-126) U/L Troponin I 0.056 H* Pending (0.000-0.034) ng/mL NT-Pro-B Natriuret Pep 1400 H (19.9-100) pg/mL Total Protein 6.5 (6.3-8.2) g/dL Albumin 3.1 L (3.5-5.1) g/dL Lipase 32 (23-300) U/L TSH (Reflex) 4.390 (0.465-4.68) uIU/mL Free T4 1.49 (0.78-2.19) ng/dL Total T3 0.71 L (0.82-1.58) NG/ML Urine Color Yellow (Yellow) Urine Appearance Clear (Clear) Urine pH 6.5 (5.0-9.0) Ur Specific [place] 1.009 (1.001-1.035) Urine Protein Trace (Negative) mg/dL Urine Glucose (UA) Negative (Negative) mg/dL Urine Ketones Negative (Negative) mg/dL Ur Blood (Man) Negative (Negative) Urine Nitrate Negative (Negative) Urine Bilirubin Negative (Negative) Urine Urobilinogen 1.0 (<2.0) mg/dL Leukocyte Esterase Rfl 2+ H (Negative) PARUL/UL Urine RBC 0-2 (0-2) /hpf Urine WBC 6-10 H (0-3) /hpf Ur Squamous Epith Cells None seen (Few) /hpf Urine Bacteria None seen /hpf Urine Casts 0-2 Urine Opiates Screen Positive A (Negative) Urine Methadone Screen Negative (Negative) Ur Barbiturates Screen Negative (Negative) Ur Phencyclidine Scrn Negative (Negative) Ur Amphetamine Screen Negative (Negative) U Benzodiazepines Scrn Negative (Negative) Urine Cocaine Screen Negative (Negative) U Cannabinoids Screen Negative (Negative) Ethyl Alcohol < 10 (<10) mg/dL Influenza A (RT-PCR) Negative (Negative) Influenza B (RT-PCR) Negative (Negative) RSV (RT-PCR) Negative (Negative) SARS-CoV-2 RNA (RT-PCR) Negative (Negative) ABG Data ABG results: 04/23/25 12:30 VBG pH 7.514 H* VBG pCO2 31.1 L VBG pO2 44.3 VBG HCO3 24.5 O2 Delivery Device Room air O2 Liters/Min Not Reportable FiO2 21 Discharge Plan Discharge Clinical Impression: AMS (altered mental status), Dementia, Acute UTI Patient Disposition: Home Condition: Stable Instructions: Antibiotic Form Additional Instructions: Florencio was sent in after having an episode low blood pressure/low oxygen. He was monitored here for over 6 hours we have not had any recurrence of the event. A broad workup was ordered and was significant for UTI. He should complete a short course of Keflex. Florencio is comfort measures only per his DNR DNI paperwork. Care should focus on making him comfortable and avoiding the emergency room unless his code status has changed. Consider hospice referral. Patient Language: Bermudian Prescriptions: New cephalexin 500 mg capsule 500 mg PO Q12H Qty: 14 0RF No Action alendronate 70 mg tablet 70 mg PO WEEKLY Rx Instructions: every friday bisacodyl [Dulcolax (bisacodyl)] 10 mg suppository 10 mg RECTAL DAILY PRN (Reason: Constipation) ondansetron 8 mg tablet,disintegrating 8 mg PO Q8H carbidopa-levodopa [Sinemet] 25-100 mg tablet 3 tablet PO TID Qty: 240 6RF Rx Instructions: May increase to 3 tablets 4 times a day as necessary atorvastatin 80 mg tablet 80 mg PO HS acetaminophen 325 mg tablet 650 mg PO Q4H PRN (Reason: fever or pain) fluticasone propion-salmeterol [Advair Diskus] 250-50 mcg/dose blister with device 1 inh inhalation Q12H Artificial Tears([id number]) 0.1-0.3 % drops 1 drp EACH EYE BID PRN (Reason: dry eye(s)) magnesium citrate [Citroma] Solution 296 ml PO DAILY PRN (Reason: constipation) cyanocobalamin (vitamin B-12) 1,000 mcg capsule 1,000 mcg PO DAILY sodium phosphates 19-7 gram/118 mL enema 118 ml RECTAL DAILY PRN (Reason: constipation) Rx Instructions: INSERT 1 APPLICATION RECTALLY NEEDED FOR CONSTIPATION IF NO RESULTS 1 DAY AFTER SUPPOSITORY dextromethorphan-guaifenesin [Tussin DM] 10-100 mg/5 mL liquid 10 ml PO Q6H PRN (Reason: cough) ipratropium-albuterol 0.5 mg-3 mg(2.5 mg base)/3 mL solution for nebulization 3 ml INHALATION TID diclofenac sodium [Arthritis Pain (diclofenac)] 1 % gel 4 g topical BID Rx Instructions: APPLY TO RIGHT NEED sennosides-docusate sodium [2-in-1 Laxative] 8.6-50 mg tablet 2 tab-cap PO BID Rx Instructions: MAY HOLD FOR SOFT STOOL WITHIN 24 HOURS finasteride 5 mg tablet 5 mg PO DAILY guaifenesin [Mucus Relief ER] 600 mg Tablet Extended Release 12hr 600 mg PO Q12HR Qty: 30 0RF lactulose [Enulose] 10 gram/15 mL solution 30 ml PO DAILY PRN (Reason: Constipation) Qty: 237 0RF hydrocodone-acetaminophen 5-325 mg tablet 1 tablet PO Q8H PRN (Reason: Pain (Scale Score 4-6)) Qty: 6 0RF cefuroxime axetil 500 mg tablet 500 mg PO Q12H Qty: 20 0RF lidocaine [Lidoderm] 5 % adhesive patch,medicated 1 patch topical DAILY Qty: 15 0RF Patient Comments: APPLY TO LOWER BACK TOPICALLY TWO TIMES A DAY Rx Instructions: leave on most painful area for up to 12 hrs carvedilol 3.125 mg Tablet 3.125 mg PO BID Rx Instructions: must administer with a meal/food magnesium hydroxide [Milk of Magnesia] 400 mg/5 mL Suspension 30 ml PO HS PRN (Reason: Constipation) Rx Instructions: if no BM in three days gabapentin 300 mg Capsule 300 mg PO BID omeprazole 20 mg Capsule,Delayed Release(Dr/Ec) 20 mg PO DAILY furosemide 20 mg Tablet 40 mg PO DAILY allopurinol 100 mg tablet 100 mg PO DAILY methotrexate sodium 2.5 mg tablet 15 mg PO DAILY potassium chloride 10 mEq tablet extended release 10 meq PO DAILY spironolactone 25 mg tablet 25 mg PO DAILY amlodipine 5 mg tablet 2.5 mg PO QAM ferrous sulfate 325 mg (65 mg iron) Tablet,Delayed Release (Dr/Ec) 325 mg PO TID folic acid 1 mg tablet 1 mg PO DAILY cholecalciferol (vitamin D3) [Vitamin D3] 125 mcg (5,000 unit) tablet 5,000 unit PO DAILY ascorbic acid (vitamin C) 500 mg capsule 500 mg PO BID loratadine [Allergy Relief (loratadine)] 10 mg tablet 10 mg PO DAILY polyethylene glycol 3350 [Miralax] 17 gram Powder In Packet 17 g PO QAM Qty: 10 0RF Patient Comments: HOLD FOR LOOSE STOOLS levothyroxine 100 mcg tablet 100 mcg PO DAILY Qty: 90 1RF tamsulosin 0.4 mg capsule 0.8 mg PO DAILY Qty: 180 1RF duloxetine 60 mg capsule,delayed release(DR/EC) 60 mg PO DAILY Qty: 30 1RF albuterol sulfate 90 mcg/actuation HFA aerosol inhaler 1 puff INHALATION Q4H PRN (Reason: shortness of breath or wheezing) Qty: 8.5 1RF Follow-up/Referrals: Raoul Forbes MD [Primary Care Provider] -
--- NOTE | 2025-04-23 10:14 | PC.NURSE ---
attepted to contact granddaughter Eveline. no one answered
--- NOTE | 2025-04-23 10:49 | PC.NURSE ---
attepted contact with granddaughter Eveline. no answer. Called secondary contact Chika (friend). Chika didn't answer but a voicemail was left
[2025-04-23 10:56] VITALS: BP 121/59; PULSE 64; RESP 15; O2SAT 100
[2025-04-23 12:25] LABS: Add Urine Microscopic? YES; Appearance Urine Clear (Clear); Bacteria Urine None Seen /hpf; Bilirubin Urine Negative (Negative); Blood Urine Negative (Negative); Color Urine Yellow (Yellow); Glucose Urine UA Negative (Negative); Ketones Urine Negative (Negative); Leukocyte Esterase Ur 2+ LEU/UL (Negative); Nitrate Urine Negative (Negative); Non Pathogenic Casts 0-2; Protein Urine Trace mg/dL (Negative); RBC Urine 0-2 /hpf (0-2); Specific Grav Ur 1.009 (1.001-1.035); Squamous Epithelial Cell Urine None Seen /hpf (Few); pH Urine 6.5 (5.0-9.0)
[2025-04-23 12:35] LABS: Fractional Inspired Oxygen 21 %; HCO3 VBG 24.5 mEq/l (24.0-30.0); PCO2 VBG 31.1 mmHg (42.0-48.0); PO2 VBG 44.3 mmHg (35.0-45.0)
[2025-04-23 12:37] LABS: Device ROOM AIR; pH VBG 7.514 (7.300-7.400)
[2025-04-23 12:41] LABS: Amphetamine Screen Urine Negative (Negative); Barbiturate Screen Urine Negative (Negative); Benzodiazepines Screen Urine Negative (Negative); Cannabinoid Screen Urine Negative (Negative); Cocaine Screen Urine Negative (Negative); Methadone Screen Urine Negative (Negative); Opiate Screen Urine Positive (Negative); Phencyclidine Screen Urine Negative (Negative)
[2025-04-23 12:54] LABS: Basophils Percent Auto 0.4 % (0.2-1.2); Eosinophils Absolute Auto 0.1 K/mm3 (0-0.3); Eosinophils Percent Auto 0.7 % (0-4.4); Hematocrit 28.4 % (42.0-52.0); Immature Granulocyte Absolute 0.04 K/mm3 (0.00-0.031); Immature Granulocyte Percent A 0.5 % (0-0.5); Lymphocytes Absolute Auto 3.97 K/mm3 (0.9-3.2); Lymphocytes Percent Auto 49.4 % (18.3-44.2); Mean Corpuscular HGB Conc 31.7 g/dl (32-36); Mean Corpuscular Hemoglobin 27.9 pg (26-34); Mean Corpuscular Volume 87.9 fl (80-100); Mean Platelet Volume 10.2 fl (7.4-10.4); Monocytes Absolute Auto 0.3 K/mm3 (0.1-0.6); Monocytes Percent Auto 3.5 % (2.6-8.5); Neutrophils Absolute Auto 3.7 K/mm3 (1.3-6.7); Neutrophils Percent Auto 45.5 % (45.5-73.1); Platelet Count Result 246 k/mm3 (150-375); Red Blood Count 3.23 M/mm3 (4.6-6.20); Red Cell Distribution Width 19.3 % (11.5-14.5)
[2025-04-23 12:57] LABS: Influenza A QL RT-PCR Negative (Negative); Influenza B QL RT-PCR Negative (Negative); RSV RNA, RT-PCR. Negative (Negative); SARS-CoV-2 RNA PCR Negative (Negative)
[2025-04-23 13:06] LABS: Ethanol < 10 mg/dL (<10)
[2025-04-23 13:08] LABS: Alanine Aminotransferase 10 U/L (6-50); Albumin Level 3.1 g/dL (3.5-5.1); Alkaline Phosphatase 71 U/L (38-126); Anion Gap 9 mmol/L (4-12); Aspartate Amino Transferase 18 U/L (17-59); Bilirubin,Total 0.5 mg/dL (0.2-1.3); Blood Urea Nitrogen 18 mg/dL (9-20); Calcium 8.8 mg/dL (8.4-10.2); Carbon Dioxide 24 mmol/L (22-30); Chloride 96 mmol/L (98-107); Estimated CRCL calculation 56 ml/min; Estimated Glomerular Filt Rate > 60; Glucose 106 mg/dL (65-110); Lipase 32 U/L (23-300); Magnesium 1.6 mg/dL (1.6-2.3); Phosphorus 3.3 mg/dL (2.5-4.5); Potassium 4.1 mmol/L (3.4-5.0); Sodium 129 mmol/L (137-145); Total Protein 6.5 g/dL (6.3-8.2)
[2025-04-23 13:09] LABS: Lactic Acid Reflex 1.2 mmol/L (0.7-2.0)
[2025-04-23 13:15] LABS: INR 1.2; Partial Thromboplastin Time 35.9 Seconds (22.3-36.8)
[2025-04-23 13:28] LABS: NT Pro B Type Natriuretic Pept 1400 pg/mL (19.9-100)
[2025-04-23 13:29] LABS: Troponin I 0.056 ng/mL (0.000-0.034)
[2025-04-23 14:10] LABS: Free T4 Free Thyroxine Reflex 1.49 ng/dL (0.78-2.19)
--- NOTE | 2025-04-23 14:36 | ECG_ITS ---
Test Date: 2025-04-23 14:34:53 Measurements Intervals [place] Rate: 63 P: 0 CA: 0 QRS: -58 QRSD: 122 T: 63 QT: 449 QTc: 463 Interpretive Statements SINUS RHYTHM WITH ATRIAL PREMATURE COMPLEXES FIRST DEGREE AV BLOCK INTRAVENTRICULAR CONDUCTION DELAY INFERIOR INFARCT, AGE INDETERMINATE BASELINE ARTIFACT- I, III, AVR, AVL, AVF, V1, V3 ABNORMAL ECG Compared to ECG 04/23/2025 09:20:45 Atrial flutter no longer present Electronically Signed On 04-24-2025 07:45:35 CDT by Arnulfo Eason D.O.
[2025-04-23 14:50] LABS: Total Triiodothyronine (T3) 0.71 NG/ML (0.82-1.58)
[2025-04-23 16:51] VITALS: BP 123/60; RESP 16; O2SAT 96
== END 2025-04-23 16:53 ==
PROVIDERS: Emergency Provider Emergency Medicine; PCP Family Medicine
DX: N39.0 Urinary tract infection, site not specified (principal); R41.82 Altered mental status, unspecified; F03.90 Unspecified dementia, unspecified severity, without behavioral disturbance, psychotic disturbance, mood disturbance, and anxiety; Z20.822 Contact with and (suspected) exposure to COVID-19; I11.9 Hypertensive heart disease without heart failure; I12.9 Hypertensive chronic kidney disease with stage 1 through stage 4 chronic kidney disease, or unspecified chronic kidney disease; N18.30 Chronic kidney disease, stage 3 unspecified; E03.9 Hypothyroidism, unspecified; D64.9 Anemia, unspecified; C91.10 Chronic lymphocytic leukemia of B-cell type not having achieved remission; G47.33 Obstructive sleep apnea (adult) (pediatric); G20.A1 Parkinson's disease without dyskinesia, without mention of fluctuations; N40.1 Benign prostatic hyperplasia with lower urinary tract symptoms; R33.8 Other retention of urine; K21.9 Gastro-esophageal reflux disease without esophagitis; M17.0 Bilateral primary osteoarthritis of knee; F41.8 Other specified anxiety disorders; Z66 Do not resuscitate; Z85.528 Personal history of other malignant neoplasm of kidney; Z90.49 Acquired absence of other specified parts of digestive tract; Z90.5 Acquired absence of kidney; Z98.49 Cataract extraction status, unspecified eye; Z79.899 Other long term (current) drug therapy; I49.1 Atrial premature depolarization; I44.0 Atrioventricular block, first degree; I45.9 Conduction disorder, unspecified; R94.31 Abnormal electrocardiogram [ECG] [EKG]; I48.92 Unspecified atrial flutter; R00.0 Tachycardia, unspecified
CPT/HCPCS: 36415; 70450; 71045; 71260; 74177; 80053; 80307; 81001; 82077; 82803; 83605; 83690; 83735; 83880; 84100; 84439; 84443; 84480; 84484; 85025; 85610; 85730; 87040; 87086; 87181; 87637; 93005; 99284; Q9967